=== PATIENT | female | born 1960 | race Caucasian/White ===

== ENCOUNTER 2023-06-01 20:33 | Observation (INO) ==
[2023-06-01] MEDS ORDERED: LORazepam 2 MG/1 ML VIAL ONE (21:05)
[2023-06-01] MEDS ORDERED: LORazepam 2 MG/1 ML VIAL IV STA ×2 (21:10→22:57)
[2023-06-01] MEDS ORDERED: ACETAMINOPHEN 1,000 MG/100 ML VIAL IV STA (21:10)
--- NOTE | 2023-06-01 21:16 | Emergency Department Note ---
Impression & Plan Traumatic hematoma of forehead, Focal seizure, Brain lesion ED Provider Note NAME: LONDON EASON AGE: 63 SEX: F : 1960 ARRIVES VIA: Ambulance INFORMANT: Patient, ED PROVIDER(S): Santana Lopez MD CHIEF COMPLAINT: Fall, arm jerking MEDICAL DECISION MAKING: Patient presents due to concern for fall and associated arm jerking. IV was established blood work is obtained. The patient was ordered some Ativan as the patient may be having a focal seizure versus uncontrollable spasm of her right upper extremity. Patient does move the rest of her extremities without any issue. Patient does complain of some mild shortness of breath but is fairly anxious. The patient was ordered some IV Ativan as well as some IV Tylenol CT head cervical spine and face. Patient with a normal white count hemoglobin of 10 anemia. Kidney function is unremarkable with normal electrolytes. BSG 123. CT does show concern for edema left side of the hemisphere which may be consistent with the patient's uncontrollable jerking of the right upper extremity which may be a focal seizure. I did speak with [facility] neurology Dr. Simons who did review the CT imaging. He recommended Keppra and to hold Dex until an MRI was obtained with a nd without contrast. He does think that this is likely a metastatic lesion but could be a primary glioma. He recommends a CT of the chest abdomen pelvis to look for primary lesion. Patient was ordered 2 g of Keppra. Patient was also ordered Ativan. I did convey the findings to the patient the patient's family at bedside. I subsequently did speak with the on-call hospitalist Dr. Uriarte and the patient was admitted to the medicine service. CT chest abdomen pelvis does not show any primary brain lesion. Patient's MR brain does show brightly enhancing dural based lesion over the left frontal convexity measuring 14.9 x 13 x 10.8 mm with moderate amount of vasogenic edema. Patient was not a TNK candidate as the patient has had right upper extremity ongoing issues for the last 3 months and the patient did have a traumatic injury at the time of her presentation. Critical Care: I have personally spent 35 minutes of critical care time in direct management of this patient. This includes bedside care, interpretation of diagnostic studies, and testing, discussion with consultants, patient, and family members, and other require inpatient management activities. This 35 minutes is in excess of all separately billable procedures. Discussion w/ other healthcare providers: Dr. Lipscomb with [facility] neurology Dr. Uriarte with the inpatient medicine service Prior /Outside records reviewed: I reviewed the patient's medication list patient takes mirtazapine CBD Gummies metoprolol loratadine albuterol atorvastatin and Spiriva Differential diagnosis: Fracture, dislocation, contusion, strain, sprain, ICH, hemothorax, intra- abdominal injury, anemia among other causes were considered. Diagnostics, as interpreted by me: ECG: Sinus tachycardia, rate of 136, normal intervals, normal axis. Possible ST depressions in the lateral leads. Cardiac monitoring: An order was placed for continuous cardiac monitoring. The monitor shows a rate of 145 with tachycardic and regular rhythm. Patient was placed on pulse oximetry Medical decision rules: None Imaging studies: I informally interpreted the patient's CT of the head which does show likely vasogenic edema within the left hemisphere with formal report to follow. HPI: Patient presents due to concern for fall that occurred just prior to arrival. The patient reportedly was complaining of some shortness of breath afterwards but does feel anxious. The patient does have tremors of the right upper extremity that seems more pronounced today. Patient states that she stood up to get a drink and had a fall striking the nightstand. The patient was noted to have a hematoma to the right eyebrow. Patient does have a history of smoking but is a former smoker. Patient does follow with pulmonology. BSG prior to arrival was 137. Ice pack was applied. Patient describes a right upper extremity jerking as a seizure and that she is had some of these issues for the last 3 months or so. Patient was to have a follow-up with Dr. Dalton here locally but did have an appointment canceled and did have a follow-up next month. PAST MEDICAL HISTORY: COPD, hypertension PAST SURGICAL HISTORY: No pertinent past surgical history SOCIAL HISTORY: Former smoker. Lives alone. Denies alcohol use. HOME MEDICATIONS: See Below ALLERGIES: See Below VITALS: See Below PHYSICAL EXAMINATION: GENERAL: NAD, non-toxic. Appears older than stated age. EYE EXAM: Normal conjunctiva. PERRL, no anisocoria and EOM's grossly intact w/o pain. Head: Hematoma noted to the right supraorbital area even able to open the eye with no obvious subconjunctival hemorrhage or hyphema. No proptosis noted. OROPHARYNX: Moist mucus membranes, grossly normal dentition. NECK: Supple, no nuchal rigidity, no adenopathy, non-tender. No signs of meningismus. FROM of the neck with good chin to chest and neck extension. No stridor. LUNGS: Clear to auscultation. Normal chest wall mechanics. HEART: Tachycardic and regular, no MRG. ABDOMEN: Abdomen soft, non-tender, no masses, no rebound or guarding. BACK: No CVA TTP. SKIN: No rashes and no bruising. UPPER EXTREMITIES: Right upper extremity jerking motion noted. Decreased ability to move the right upper extremity compared to the left. LOWER EXTREMITIES: Grossly normal, no edema. NEURO EXAM: A&O x3, cranial nerves II-XII grossly intact, normal speech, jerking movement of the right upper extremity with inability to raise the arm. Past Med/Surg History Medical History Alcohol use disorder Allergic rhinitis Anxiety COPD (chronic obstructive pulmonary disease) Depression Frontal headache GERD (gastroesophageal reflux disease) Hyperlipidemia Hypertension Muscle spasm Osteoarthritis Tobacco use disorder Vitamin D deficiency Surgical History S/P hysterectomy Family History Mother , age 69 of liver cancer Liver cancer Father , 04/12/2072 of heart disease Heart disease Social History Smoking Status: Current every day smoker Tobacco Type: Cigarettes Age Started Using Tobacco: 16; packs per day: 0.25; Cigarettes Per Day: 1/2 pack to 1 pack for the past 40-50 years; Smoking End Date: pt stated she still has a few every once in a while; Second Hand Exposure: No; Do You Dip or Chew Tobacco: No; Tobacco Cessation Education Requested by Patient: No Hx Alcohol Use: Yes Alcohol type: beer and hard liquor Alcohol Intake Frequency: 2-4 x/Month Hx Substance Use: No Preferred Language: Danish Communication Ability: Effective Retail Merchandiser Required: No Beliefs That Will Affect Care: None Current Living Situation: Alone current occupational status: retired 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 Other Information That Helps Us Care for You: No Feels Safe at Home: Yes Safety Concerns: Feels Safe At This Time Allergies Allergies Allergy/AdvReac Type Severity Reaction Status Date / Time No Known Allergies Allergy Unverified 06/02/23 00:53 Home Meds Home Medications Medication Instructions Recorded Confirmed albuterol sulfate 2.5 mg/3 mL 2.5 mg continuous nebulization 06/02/23 06/02/23 (0.083 %) solution for nebulization .EVERY 4-6 PRN Shortness Of Breath Or Wheezing albuterol sulfate 90 mcg/actuation 2 inh inhalation Q6 PRN Shortness 06/02/23 06/02/23 breath activated powder inhaler Of Breath Or Wheezing (ProAir RespiClick) atorvastatin 80 mg tablet 80 mg PO DAILY 06/02/23 06/02/23 celecoxib 200 mg capsule 200 mg PO BID PRN Pain 06/02/23 06/02/23 cholecalciferol (vitamin D3) 50 50 mcg PO DAILY 06/02/23 06/02/23 mcg (2,000 unit) tablet (Vitamin D3) hydroxyzine HCl 25 mg tablet 25 mg PO TID PRN Anxiety 06/02/23 06/02/23 lisinopril 5 mg tablet 5 mg PO DAILY 06/02/23 06/02/23 loratadine 10 mg tablet 10 mg PO DAILY 06/02/23 06/02/23 methocarbamol 750 mg tablet 750 mg PO BID PRN Muscle Spasm 06/02/23 06/02/23 metoprolol succinate 25 mg 12.5 mg PO DAILY 06/02/23 06/02/23 tablet,extended release 24 hr mirtazapine 30 mg tablet 30 mg PO HS 06/02/23 06/02/23 omeprazole 40 mg capsule,delayed 40 mg PO DAILY 06/02/23 06/02/23 release tiotropium bromide 2.5 2 puff inhalation DAILY 06/02/23 06/02/23 mcg/actuation mist for inhalation (Spiriva Respimat) Results & Data (ED) Vital Signs Vital Signs - 24 hr 06/01/23 20:41 06/01/23 21:10 06/01/23 21:21 Temperature 36.8 C Temperature Source Oral Pulse Rate 111 H 146 H 133 H Pulse Rate [Apical] Pulse Rate from SpO2 Sensor Pulse Rhythm Regular Respiratory Rate 22 18 Respiratory Effort / Characteristics Non-Labored Spontaneous Respiratory Depth Normal Blood Pressure 119/86 Blood Pressure [Left Arm] Blood Pressure Mean 97 Blood Pressure Mean [Left Arm] Pulse Oximetry 94 92 Oxygen Delivery Method Room Air Room Air Sepsis Recent Fever Within 48 Hours No Sepsis New/Unexplained Change in Mental Status No Sepsis Action Taken by Nursing No Action Required 06/01/23 21:40 06/01/23 21:26 06/01/23 21:26 Temperature Temperature Source Pulse Rate 128 H Pulse Rate [Apical] 120 H Pulse Rate from SpO2 Sensor 128 H Pulse Rhythm Respiratory Rate 20 25 H Respiratory Effort / Characteristics Non-Labored Spontaneous Respiratory Depth Normal Blood Pressure 130/72 Blood Pressure [Left Arm] 97/79 L Blood Pressure Mean 84 Blood Pressure Mean [Left Arm] 85 Pulse Oximetry 94 92 Oxygen Delivery Method Room Air Sepsis Recent Fever Within 48 Hours Sepsis New/Unexplained Change in Mental Status Sepsis Action Taken by Nursing 06/01/23 21:30 06/01/23 21:31 06/01/23 21:31 Temperature Temperature Source Pulse Rate 125 H 124 H Pulse Rate [Apical] Pulse Rate from SpO2 Sensor 125 H 125 H Pulse Rhythm Respiratory Rate 26 H 18 Respiratory Effort / Characteristics Respiratory Depth Blood Pressure 130/72 81/40 L Blood Pressure [Left Arm] Blood Pressure Mean 91 58 Blood Pressure Mean [Left Arm] Pulse Oximetry 92 92 Oxygen Delivery Method Sepsis Recent Fever Within 48 Hours Sepsis New/Unexplained Change in Mental Status Sepsis Action Taken by Nursing 06/01/23 22:00 06/01/23 22:30 06/01/23 23:00 Temperature Temperature Source Pulse Rate 111 H 102 H Pulse Rate [Apical] Pulse Rate from SpO2 Sensor 113 H 102 H Pulse Rhythm Respiratory Rate 25 H 20 Respiratory Effort / Characteristics Non-Labored Spontaneous Respiratory Depth Blood Pressure 117/68 121/82 Blood Pressure [Left Arm] Blood Pressure Mean 84 95 Blood Pressure Mean [Left Arm] Pulse Oximetry 94 94 Oxygen Delivery Method Sepsis Recent Fever Within 48 Hours Sepsis New/Unexplained Change in Mental Status Sepsis Action Taken by Nursing 06/01/23 23:00 Temperature Temperature Source Pulse Rate 105 H Pulse Rate [Apical] Pulse Rate from SpO2 Sensor 107 H Pulse Rhythm Respiratory Rate 24 Respiratory Effort / Characteristics Respiratory Depth Blood Pressure 123/76 Blood Pressure [Left Arm] Blood Pressure Mean 91 Blood Pressure Mean [Left Arm] Pulse Oximetry 95 Oxygen Delivery Method Sepsis Recent Fever Within 48 Hours Sepsis New/Unexplained Change in Mental Status Sepsis Action Taken by Detention Medications Current Medication List: was personally reviewed by me Laboratory Data Attestation: I reviewed the patient's lab results. 06/01/23 20:45 06/01/23 20:45 Lab Results 06/01/23 06/01/23 06/01/23 Range/Units 20:45 20:45 20:45 WBC 10.52 (4.8-10.8) K/ul RBC 4.18 L (4.20-5.40) M/uL Hgb 10.6 L (12.0-16.0) g/dl Hct 33.2 L (37.0-47.0) % MCV 79.4 L (80.0-100.0) fL MCH 25.4 (25.0-34.0) pg MCHC 31.9 L (32.0-36.0) g/dL RDW Std Deviation 51.8 H (36.4-46.3) fL RDW Coeff of Micheal 17.9 H (11.5-14.5) % Plt Count 392 (130-400) K/uL MPV 9.4 (9.4-12.4) fL Immature Gran % (Auto) 0.3 % Neut % (Auto) 52.1 % Lymph % (Auto) 37.2 % Graves % (Auto) 7.5 % Eos % (Auto) 2.2 % Baso % (Auto) 0.7 % Neut # (Auto) 5.49 (1.40-6.50) K/uL Lymph # (Auto) 3.91 H (1.20-3.40) K/uL Graves # (Auto) 0.79 H (0.11-0.59) K/uL Eos # (Auto) 0.23 (0.00-0.50) K/uL Baso # (Auto) 0.07 (0.00-0.20) K/uL Immature Gran # (Auto) 0.03 (0.01-0.20) K/uL PT 10.9 (9.0-12.0) Seconds INR 1.0 (0.9-1.1) Sodium 139 (136-145) mmol/L Potassium 4.0 (3.5-5.1) mmol/L Chloride 104 (98-107) mmol/L Carbon Dioxide 24 (21-32) mmol/L Anion Gap 11 (3-11) BUN 9 (6-23) mg/dl Creatinine 0.87 (0.6-1.2) mg/dl Est Cr Clr Drug Dosing 66.5 ml/min Est GFR ( Amer) 82.2 ml/min Est GFR (Non-Af Amer) 70.9 ml/min BUN/Creatinine Ratio 10.3 (10-20) Glucose 123 H (70-99(Fasting)) mg/dl Calcium 9.7 (8.6-10.3) mg/dl Total Bilirubin 0.2 (0.2-1.0) mg/dl AST 23 (13-39) U/L ALT 13 (7-52) U/L Alkaline Phosphatase 56 (34-104) U/L Troponin I High Sens 5.7 (0-14) pg/ml Total Protein 7.2 (6.0-8.3) gm/dl Albumin 4.3 (3.4-5.0) gm/dl Globulin 2.9 (2.5-4.0) gm/dl Albumin/Globulin Ratio 1.5 (0.9-2) Administered Medications Albuterol (Albut/Ipratrop 3mg/0.5mg Neb 3 Ml Vial) 3 ml NEB QIDR [facility]; Protocol Stop: 07/02/23 06:59 Last Admin: 06/02/23 14:55 Dose: 3 ml Documented By: Admin: 06/02/23 10:40 Dose: 3 ml Documented By: Admin: 06/02/23 07:35 Dose: 3 ml Documented By: ANGELI Thiamine HCl 100 mg/ Syringe 10 mls @ 2 mls/min IV QAM [facility] Stop: 07/02/23 08:59 Last Admin: 06/02/23 08:05 Dose: 2 mls/min Documented By: ALIZA Folic Acid 1 mg/ Syringe 10 mls @ 5 [facility]ls[facility] [place]: 07/02/23 08:59 Last Admin: 06/02/23 08:05 Dose: 5 mls/min Documented By: ALIZA Pantoprazole Sodium 40 mg/ (Syringe) 10 mls @ 5 mls/min IV DAILY@1100 [facility] Stop: 07/02/23 10:59 Last Admin: 06/02/23 10:36 Dose: 5 mls/min Documented By: ALIZA Levetiracetam 500 mg/ Sodium (Chloride) 105 mls @ 420 mls/hr IV Q12H [facility] Stop: 07/02/23 07:59 Last Infusion: 06/02/23 10:05 Dose: 0 mls/hr Documented By: Admin: 06/02/23 08:04 Dose: 420 mls/hr Documented By: ALIZA Dexamethasone 4 mg/ Syringe 1 mls @ 1 mls/min IV Q8H [facility] Stop: 07/02/23 12:59 Last Admin: 06/02/23 13:36 Dose: 1 mls/min Documented By: ALIZA Magnesium Sulfate/Dextrose (Magnesium Sulfate / D5w) 1 gm in 100 mls @ 50 mls/hr IV Q2H [facility]ON Stop: 06/02/23 16:14 Last Admin: 06/02/23 14:37 Dose: 50 mls/hr Documented By: Infusion: 06/02/23 14:34 Dose: 50 mls/hr Documented By: Admin: 06/02/23 12:34 Dose: 50 mls/hr Documented By: Infusion: 06/02/23 12:34 Dose: 50 mls/hr Documented By: Admin: 06/02/23 10:36 Dose: 50 mls/hr Documented By: ALIZA Discontinued Medications Gadobutrol (Gadobutrol 30ml Vial) 7.5 ml IV ONCE ONE Stop: 06/02/23 03:07 Last Admin: 06/02/23 02:40 Dose: 7.5 ml Documented By: SANTOS Acetaminophen (Ofirmev) 1,000 mg in 100 mls @ 400 mls/hr IV NOW STA Stop: 06/01/23 21:24 Last Infusion: 06/01/23 22:14 Dose: 0 mls/hr Documented By: Admin: 06/01/23 21:49 Dose: 400 mls/hr Documented By: JARRETT Sodium Chloride (Nss) 1,000 mls @ 999 mls/hr IV .Q1H1M ONE Stop: 06/01/23 22:51 Last Infusion: 06/01/23 23:27 Dose: 0 mls/hr Documented By: Admin: 06/01/23 21:56 Dose: 999 mls/hr Documented By: JARRETT Levetiracetam 1,000 mg/ Sodium (Chloride) 110 mls @ 440 mls/hr IV NOW STA Stop: 06/01/23 22:55 Last Admin: 06/01/23 23:36 Dose: Not Given Documented By: JONO Levetiracetam 2,000 mg/ Sodium (Chloride) 270 mls @ 999 mls/hr IV NOW STA Stop: 06/01/23 23:12 Last Infusion: 06/02/23 00:51 Dose: 0 mls/hr Documented By: Admin: 06/01/23 23:38 Dose: 999 mls/hr Documented By: JONO Potassium Chloride/Sodium Chloride (Normal Saline W/20 Meq Kcl) 20 meq in 1,000 mls @ 100 mls/hr IV .Q10H GIBSON; Protocol Stop: 06/02/23 10:14 Last Infusion: 06/02/23 11:35 Dose: 0 mls/hr Documented By: Admin: 06/02/23 04:13 Dose: 100 mls/hr Documented By: FAYE Dexamethasone 10 mg/ Syringe 2.5 mls @ 1 mls/min IV ONE ONE Stop: 06/02/23 07:32 Last Admin: 06/02/23 08:25 Dose: 1 mls/min Documented By: ALIZA Ioversol (Optiray 320 100ml) 93 ml IV ONCE ONE Stop: 06/01/23 23:24 Last Admin: 06/01/23 23:24 Dose: 93 ml Documented By: KULDIP Lorazepam (Lorazepam 2 Mg/1 Ml Vial) Confirm Administered Dose 2 mg .ROUTE .STK- MED ONE Stop: 06/01/23 21:06 Last Admin: 06/01/23 21:06 Dose: 1 mg Documented By: JARRETT Lorazepam (Lorazepam 2 Mg/1 Ml Vial) 1 mg IV NOW STA Stop: 06/01/23 21:11 Last Admin: 06/01/23 21:23 Dose: Not Given Documented By: JARRETT Lorazepam (Lorazepam 2 Mg/1 Ml Vial) 1 mg IV NOW STA Stop: 06/01/23 22:58 Last Admin: 06/01/23 23:38 Dose: 1 mg Documented By: JONO Lorazepam (Lorazepam 2 Mg/1 Ml Vial) 0.5 mg IV NOW STA Stop: 06/02/23 01:29 Last Admin: 06/02/23 03:30 Dose: Not Given Documented By: FAYE Metoprolol Tartrate (Metoprolol Tartrate 1 Mg/Ml Vial) 5 mg IV NOW STA Stop: 06/02/23 13:39 Last Admin: 06/02/23 13:57 Dose: 5 mg Documented By: ALIZA Miscellaneous Information (Patient's Allergy Info Needs Entered) 1 each N/A NOW STA Stop: 06/02/23 00:46 Last Admin: 06/02/23 01:21 Dose: Not Given Documented By: JONO Thiamine HCl (Thiamine Hcl 100 Mg/Ml 2 Ml Vial) 100 mg IM NOW STA Stop: 06/02/23 02:26 Last Admin: 06/02/23 04:14 Dose: 100 mg Documented By: FAYE Imaging Data Radiologist's Impression: Cervical Spine CT 06/01/23 21:10 Exam(s): CT C SPINE EXAM: CT Cervical Spine Without Intravenous Contrast CLINICAL HISTORY: Reason for exam: Trauma. TECHNIQUE: Axial computed tomography images of the cervical spine without intravenous contrast. CTDI is 38.31 mGy and DLP is 1188.72 mGy-cm. Automated exposure control was utilized for the study. A dose lowering technique was utilized adhering to the principles of ALARA. COMPARISON: No relevant prior studies available. FINDINGS: Vertebrae: Advanced multilevel degenerative arthropathy on the left. No acute fracture. No misalignment. Discs/spinal canal/neural foramina: Degenerative disc disease in the lower cervical spine. No spinal canal stenosis. Soft tissues: Unremarkable. IMPRESSION: No acute findings in the cervical spine. Electronically signed by: Power Parekh MD 06/01/23 22:[address] 06/01/23 21:10 Exam(s): CT FACIAL Without Contrast EXAM: CT Maxillofacial Without Intravenous Contrast CLINICAL HISTORY: Reason for exam: Trauma. TECHNIQUE: Axial computed tomography images of the face without intravenous contrast. CTDI is 38.31 mGy and DLP is 1188.72 mGy-cm. Automated exposure control was utilized for the study. A dose lowering technique was utilized adhering to the principles of ALARA. COMPARISON: No relevant prior studies available. FINDINGS: Bones/joints: No acute fracture. Soft tissues: Unremarkable. Orbits: Extensive right periorbital and supraorbital hematoma. Sinuses: Unremarkable. No air-fluid levels. Dental: Multiple dental caries. Periodontal erosion involving the second right maxillary bicuspid. IMPRESSION: No acute fracture. Electronically signed by: Power Parekh MD 06/01/23 22:[address] 06/01/23 21:10 Exam(s): CT HEAD Without Contrast EXAM: CT Head Without Intravenous Contrast CLINICAL HISTORY: Reason for exam: Trauma. TECHNIQUE: Axial computed tomography images of the head/brain without intravenous contrast. CTDI is 38.31 mGy and DLP is 1188.72 mGy-cm. Automated exposure control was utilized for the study. A dose lowering technique was utilized adhering to the principles of ALARA. COMPARISON: No relevant prior studies available. FINDINGS: Brain: Abnormal vasogenic edema within the posterior left frontal lobe. . No cortical edema. No hemorrhage. No abnormal mass-effect. Ventricles: Unremarkable. No ventriculomegaly. Bones/joints: Unremarkable. No acute fracture. Soft tissues: Right periorbital and supraorbital hematoma and soft tissue swelling. Sinuses: Unremarkable as visualized. No acute sinusitis. Mastoid air cells: Unremarkable as visualized. No mastoid effusion. IMPRESSION: 1. Right periorbital and supraorbital hematoma and soft tissue swelling. 2. Abnormal vasogenic edema within the posterior left frontal lobe. Recommend a CT scan with contrast or an MRI with and without contrast to look for underlying lesion. Electronically signed by: Power Parekh MD 06/01/23 22:[address] 06/01/23 21:10 Exam(s): CT C SPINE EXAM: CT Cervical Spine Without Intravenous Contrast CLINICAL HISTORY: Reason for exam: Trauma. TECHNIQUE: Axial computed tomography images of the cervical spine without intravenous contrast. CTDI is 38.31 mGy and DLP is 1188.72 mGy-cm. Automated exposure control was utilized for the study. A dose lowering technique was utilized adhering to the principles of ALARA. COMPARISON: No relevant prior studies available. FINDINGS: Vertebrae: Advanced multilevel degenerative arthropathy on the left. No acute fracture. No misalignment. Discs/spinal canal/neural foramina: Degenerative disc disease in the lower cervical spine. No spinal canal stenosis. Soft tissues: Unremarkable. IMPRESSION: No acute findings in the cervical spine. Electronically signed by: Power Parekh MD 06/01/23 22:[address] 06/01/23 21:10 Exam(s): CT FACIAL Without Contrast EXAM: CT Maxillofacial Without Intravenous Contrast CLINICAL HISTORY: Reason for exam: Trauma. TECHNIQUE: Axial computed tomography images of the face without intravenous contrast. CTDI is 38.31 mGy and DLP is 1188.72 mGy-cm. Automated exposure control was utilized for the study. A dose lowering technique was utilized adhering to the principles of ALARA. COMPARISON: No relevant prior studies available. FINDINGS: Bones/joints: No acute fracture. Soft tissues: Unremarkable. Orbits: Extensive right periorbital and supraorbital hematoma. Sinuses: Unremarkable. No air-fluid levels. Dental: Multiple dental caries. Periodontal erosion involving the second right maxillary bicuspid. IMPRESSION: No acute fracture. Electronically signed by: Power Parekh MD 06/01/23 22:[address] 06/01/23 21:10 Exam(s): CT HEAD Without Contrast EXAM: CT Head Without Intravenous Contrast CLINICAL HISTORY: Reason for exam: Trauma. TECHNIQUE: Axial computed tomography images of the head/brain without intravenous contrast. CTDI is 38.31 mGy and DLP is 1188.72 mGy-cm. Automated exposure control was utilized for the study. A dose lowering technique was utilized adhering to the principles of ALARA. COMPARISON: No relevant prior studies available. FINDINGS: Brain: Abnormal vasogenic edema within the posterior left frontal lobe. . No cortical edema. No hemorrhage. No abnormal mass-effect. Ventricles: Unremarkable. No ventriculomegaly. Bones/joints: Unremarkable. No acute fracture. Soft tissues: Right periorbital and supraorbital hematoma and soft tissue swelling. Sinuses: Unremarkable as visualized. No acute sinusitis. Mastoid air cells: Unremarkable as visualized. No mastoid effusion. IMPRESSION: 1. Right periorbital and supraorbital hematoma and soft tissue swelling. 2. Abnormal vasogenic edema within the posterior left frontal lobe. Recommend a CT scan with contrast or an MRI with and without contrast to look for underlying lesion. Electronically signed by: Power Parekh MD 06/01/23 22:21 PM Abdomen/Pelvis CT 06/01/23 22:41 Exam(s): CT ABDOMEN + PELVIS With Contrast IV Amt: 93 ML EXAM: CT Abdomen and Pelvis With Intravenous Contrast CLINICAL HISTORY: Reason for exam: r/o primary onc lesion. TECHNIQUE: Axial computed tomography images of the abdomen and pelvis with intravenous contrast. CTDI is 36.5 mGy and DLP is 1550.66 mGy-cm. Automated exposure control was utilized for the study. A dose lowering technique was utilized adhering to the principles of ALARA. CONTRAST: Patient received 93 ML of IV contrast COMPARISON: No relevant prior studies available. FINDINGS: Lung bases: Unremarkable. No mass. No consolidation. ABDOMEN: Liver: No intrahepatic bile duct dilatation. No mass. Gallbladder and bile ducts: The common bile duct is dilated at 9 mm. No high density stone is seen. Pancreas: Unremarkable. No mass. No pancreatic ductal dilatation. Spleen: Unremarkable. No splenomegaly. Adrenals: Unremarkable. No mass. Kidneys and ureters: Unremarkable. No solid mass. No hydronephrosis. Stomach and bowel: Unremarkable. No obstruction. No mucosal thickening. PELVIS: Appendix: No findings to suggest acute appendicitis. Bladder: Unremarkable. No mass. Reproductive: Hysterectomy. ABDOMEN and PELVIS: Intraperitoneal space: Unremarkable. No free air. No significant fluid collection. Bones/joints: No acute fracture. No dislocation. Soft tissues: Supraumbilical small ventral hernia containing omental fat. Vasculature: Unremarkable. No abdominal aortic aneurysm. Lymph nodes: Unremarkable. No enlarged lymph nodes. IMPRESSION: Mild dilatation of the common bile duct. No intrahepatic bile duct dilatation. No associated pancreatic duct dilatation. No evidence of mass. Electronically signed by: Power Parekh MD 06/02/23 00:[address] 06/01/23 22:41 Exam(s): CT CHEST With Contrast IV Amt: 93 ML EXAM: CT Chest With Intravenous Contrast CLINICAL HISTORY: Reason for exam: r/o primary onc lesion. TECHNIQUE: Axial computed tomography images of the chest with intravenous contrast. CTDI is 36.5 mGy and DLP is 1550.66 mGy-cm. Automated exposure control was utilized for the study. A dose lowering technique was utilized adhering to the principles of ALARA. CONTRAST: Patient received 93 ML of IV contrast COMPARISON: No relevant prior studies available. FINDINGS: Lungs: Unremarkable. No mass. No consolidation. Pleural space: Unremarkable. No pneumothorax. No significant effusion. Heart: Unremarkable. No cardiomegaly. No significant pericardial effusion. No significant coronary artery calcifications. Bones/joints: Unremarkable. No acute fracture. No dislocation. Soft tissues: Unremarkable. Vasculature: Unremarkable. No thoracic aortic aneurysm. Lymph nodes: Unremarkable. No enlarged lymph nodes. IMPRESSION: Negative chest CT. Electronically signed by: Power Parekh MD 06/01/23 23:57 PM Discharge Plan Visit Data Chief Complaint: Fall ED Provider: Santana Lopez Discharge Problem: Traumatic hematoma of forehead, Focal seizure, Brain lesion Patient Disposition: Admitted As Inpatient Discharge Instructions Interventions: ED Discharge Assessment Last Done: 06/02/23 02:27
[2023-06-01 21:32] LABS: Prothrombin Time 10.9 Seconds (9.0-12.0)
[2023-06-01 21:50] LABS: Albumin Globulin Ratio 1.5 (0.9-2); Albumin Level 4.3 gm/dl (3.4-5.0); BUN Creatinine Ratio 10.3 (10-20); Bilirubin,Total 0.2 mg/dl (0.2-1.0); Calcium 9.7 mg/dl (8.6-10.3); Creatinine Clr Calc Pharmacy 66.5 ml/min; Est GFR (African American) 82.2 ml/min; Est GFR (Non-African American) 70.9 ml/min; Globulin 2.9 gm/dl (2.5-4.0); Total Protein 7.2 gm/dl (6.0-8.3)
[2023-06-01 21:51] LABS: Basophils # (auto) 0.07 K/uL (0.00-0.20); Basophils % (auto) 0.7 %; Eosinophils # (auto) 0.23 K/uL (0.00-0.50); Eosinophils % (auto) 2.2 %; Hematocrit (blood only) 33.2 % (37.0-47.0); Hemoglobin 10.6 g/dl (12.0-16.0); Immature Granulocytes # (auto) 0.03 K/uL (0.01-0.20); Immature Granulocytes % (auto) 0.3 %; Lymphocytes # (auto) 3.91 K/uL (1.20-3.40); Lymphocytes % (auto) 37.2 %; Mean Corpuscular Hemoglobin 25.4 pg (25.0-34.0); Mean Corpuscular Hgb Conc 31.9 g/dL (32.0-36.0); Mean Corpuscular Volume 79.4 fL (80.0-100.0); Mean Platelet Volume 9.4 fL (9.4-12.4); Monocytes # (auto) 0.79 K/uL (0.11-0.59); Monocytes % (auto) 7.5 %; Neutrophils # (auto) 5.49 K/uL (1.40-6.50); Neutrophils % (auto) 52.1 %; Platelet Count 392 K/uL (130-400); RDW Coefficient of Variation 17.9 % (11.5-14.5); RDW Standard Deviation 51.8 fL (36.4-46.3); Red Blood Count 4.18 M/uL (4.20-5.40); White Blood Count 10.52 K/ul (4.8-10.8)
[2023-06-01] MEDS ORDERED: SODIUM CHLORIDE 0.9% 1,000 ML IV ONE (21:51)
[2023-06-01 21:57] LABS: Troponin I High Sensitivity 5.7 pg/ml (0-14)
--- NOTE | 2023-06-01 22:21 | CT Scan Report ---
Exam(s): CT HEAD Without Contrast EXAM: CT Head Without Intravenous Contrast CLINICAL HISTORY: Reason for exam: Trauma. TECHNIQUE: Axial computed tomography images of the head/brain without intravenous contrast. CTDI is 38.31 mGy and DLP is 1188.72 mGy-cm. Automated exposure control was utilized for the study. A dose lowering technique was utilized adhering to the principles of ALARA. COMPARISON: No relevant prior studies available. FINDINGS: Brain: Abnormal vasogenic edema within the posterior left frontal lobe. . No cortical edema. No hemorrhage. No abnormal mass-effect. Ventricles: Unremarkable. No ventriculomegaly. Bones/joints: Unremarkable. No acute fracture. Soft tissues: Right periorbital and supraorbital hematoma and soft tissue swelling. Sinuses: Unremarkable as visualized. No acute sinusitis. Mastoid air cells: Unremarkable as visualized. No mastoid effusion. IMPRESSION: 1. Right periorbital and supraorbital hematoma and soft tissue swelling. 2. Abnormal vasogenic edema within the posterior left frontal lobe. Recommend a CT scan with contrast or an MRI with and without contrast to look for underlying lesion. Electronically signed by: Power Parekh MD 06/01/23 22:21 PM
--- NOTE | 2023-06-01 22:29 | CT Scan Report ---
Exam(s): CT C SPINE EXAM: CT Cervical Spine Without Intravenous Contrast CLINICAL HISTORY: Reason for exam: Trauma. TECHNIQUE: Axial computed tomography images of the cervical spine without intravenous contrast. CTDI is 38.31 mGy and DLP is 1188.72 mGy-cm. Automated exposure control was utilized for the study. A dose lowering technique was utilized adhering to the principles of ALARA. COMPARISON: No relevant prior studies available. FINDINGS: Vertebrae: Advanced multilevel degenerative arthropathy on the left. No acute fracture. No misalignment. Discs/spinal canal/neural foramina: Degenerative disc disease in the lower cervical spine. No spinal canal stenosis. Soft tissues: Unremarkable. IMPRESSION: No acute findings in the cervical spine. Electronically signed by: Power Parekh MD 06/01/23 22:29 PM
--- NOTE | 2023-06-01 22:33 | CT Scan Report ---
Exam(s): CT FACIAL Without Contrast EXAM: CT Maxillofacial Without Intravenous Contrast CLINICAL HISTORY: Reason for exam: Trauma. TECHNIQUE: Axial computed tomography images of the face without intravenous contrast. CTDI is 38.31 mGy and DLP is 1188.72 mGy-cm. Automated exposure control was utilized for the study. A dose lowering technique was utilized adhering to the principles of ALARA. COMPARISON: No relevant prior studies available. FINDINGS: Bones/joints: No acute fracture. Soft tissues: Unremarkable. Orbits: Extensive right periorbital and supraorbital hematoma. Sinuses: Unremarkable. No air-fluid levels. Dental: Multiple dental caries. Periodontal erosion involving the second right maxillary bicuspid. IMPRESSION: No acute fracture. Electronically signed by: Power Parekh MD 06/01/23 22:33 PM
[2023-06-01] MEDS ORDERED: levETIRAcetam 1,000 MG in 0.9 % SODIUM CHLORIDE 100 ML IV STA (22:41)
[2023-06-01] MEDS ORDERED: OPTIRAY 320 100ml IV ONE (23:23)
--- NOTE | 2023-06-01 23:58 | CT Scan Report ---
Exam(s): CT CHEST With Contrast IV Amt: 93 ML EXAM: CT Chest With Intravenous Contrast CLINICAL HISTORY: Reason for exam: r/o primary onc lesion. TECHNIQUE: Axial computed tomography images of the chest with intravenous contrast. CTDI is 36.5 mGy and DLP is 1550.66 mGy-cm. Automated exposure control was utilized for the study. A dose lowering technique was utilized adhering to the principles of ALARA. CONTRAST: Patient received 93 ML of IV contrast COMPARISON: No relevant prior studies available. FINDINGS: Lungs: Unremarkable. No mass. No consolidation. Pleural space: Unremarkable. No pneumothorax. No significant effusion. Heart: Unremarkable. No cardiomegaly. No significant pericardial effusion. No significant coronary artery calcifications. Bones/joints: Unremarkable. No acute fracture. No dislocation. Soft tissues: Unremarkable. Vasculature: Unremarkable. No thoracic aortic aneurysm. Lymph nodes: Unremarkable. No enlarged lymph nodes. IMPRESSION: Negative chest CT. Electronically signed by: Power Parekh MD 06/01/23 23:57 PM
--- NOTE | 2023-06-02 00:03 | CT Scan Report ---
Exam(s): CT ABDOMEN + PELVIS With Contrast IV Amt: 93 ML EXAM: CT Abdomen and Pelvis With Intravenous Contrast CLINICAL HISTORY: Reason for exam: r/o primary onc lesion. TECHNIQUE: Axial computed tomography images of the abdomen and pelvis with intravenous contrast. CTDI is 36.5 mGy and DLP is 1550.66 mGy-cm. Automated exposure control was utilized for the study. A dose lowering technique was utilized adhering to the principles of ALARA. CONTRAST: Patient received 93 ML of IV contrast COMPARISON: No relevant prior studies available. FINDINGS: Lung bases: Unremarkable. No mass. No consolidation. ABDOMEN: Liver: No intrahepatic bile duct dilatation. No mass. Gallbladder and bile ducts: The common bile duct is dilated at 9 mm. No high density stone is seen. Pancreas: Unremarkable. No mass. No pancreatic ductal dilatation. Spleen: Unremarkable. No splenomegaly. Adrenals: Unremarkable. No mass. Kidneys and ureters: Unremarkable. No solid mass. No hydronephrosis. Stomach and bowel: Unremarkable. No obstruction. No mucosal thickening. PELVIS: Appendix: No findings to suggest acute appendicitis. Bladder: Unremarkable. No mass. Reproductive: Hysterectomy. ABDOMEN and PELVIS: Intraperitoneal space: Unremarkable. No free air. No significant fluid collection. Bones/joints: No acute fracture. No dislocation. Soft tissues: Supraumbilical small ventral hernia containing omental fat. Vasculature: Unremarkable. No abdominal aortic aneurysm. Lymph nodes: Unremarkable. No enlarged lymph nodes. IMPRESSION: Mild dilatation of the common bile duct. No intrahepatic bile duct dilatation. No associated pancreatic duct dilatation. No evidence of mass. Electronically signed by: Power Parekh MD 06/02/23 00:02 AM
[2023-06-02] MEDS ORDERED: ONDANSETRON INJ 2 MG/ML 2 ML VIAL IV PRN (00:11)
[2023-06-02] MEDS ORDERED: NSS + 20MEQ KCL 20 MEQ/1,000 ML BAG IV SCH (00:15)
--- NOTE | 2023-06-02 00:22 | History & Physical Report ---
Date of Service June 02, 2023 Assessment & Plan (1) Traumatic hematoma of forehead: (2) Vasogenic brain edema: (3) Focal seizure: (4) Right arm weakness: (5) Hypertension: (6) Hyperlipidemia: (7) COPD (chronic obstructive pulmonary disease): (8) Osteoarthritis: (9) Vitamin D deficiency: (10) Muscle spasm: (11) GERD (gastroesophageal reflux disease): (12) Depression: (13) Anxiety: (14) Seizure-like activity: (15) Tobacco use disorder: (16) Alcohol use disorder: (17) Frontal headache: Plan Seizure-like activity/frontal headaches/right arm weakness/right periorbital hematoma/vasogenic left frontal lobe edema on CT- The patient will be admitted to telemetry for serial cardiac enzymes, serial EKG's, cardiac rhythm monitoring and a 2-D echocardiogram with Dopplers. Patient had been having, on retrospect, frontal headaches over the past month. At 730 this evening she fell when getting up out of bed, hitting her head, and developed a right periorbital and supraorbital hematoma. She reports that she did have right arm tingling and [id number] feeling while laying down before she got up out of bed. She had loss of bladder control after falling, and right arm was noted to be shaking, and then became stiff to the point that her friend could not bend her arm to be flexed when she was helping her get dressed. The patient has continued inability to move her right arm other than wiggle her fingers slightly during my exam. The patient does have a history of a fracture with pins and a plate in her right wrist area, and has had decreased ability to flex her wrist and have fine motor control for the past 10 years, but has never had an issue with not being able to move her right arm as this happened today. She reports that the symptoms of her right arm initially began with [id number], and then locked up. CT scan notes left frontal lobe vasogenic edema. ED discussion with neurosurgery at [facility] in [place] advised with holding on dexamethasone 10 mg IV until after the brain MRI is completed, and giving a loading dose of Keppra IV now. Neurosurgery consult reports that they would not do anything differently than we would, and advised the patient to be admitted to [facility]. The patient did have multiple CT scans of chest, abdomen and pelvis, without suggestion of a primary lesion that might serve as a focus for possible metastatic lesion to the brain. The patient will not be admitted with TIA protocol, as this is more likely in an event related to seizure activity and vasogenic edema left frontal lobe. Patient will be kept n.p.o. until she can demonstrate no episodes of confusion She will likely need a PT/OT consult MRI of brain is ordered and pending Will likely be started on dexamethasone 10 mg IV in ED, and then 4 mg IV every 8 hours, but will wait until MRI results per neurosurgery recommendation Keppra 3000 mg IV loading dose given as a neurosurgery recommendation, then will be maintained on 500 mg IV every 12 hours Alcohol use disorder- Patient has had daily alcohol intake, with combinations of beer and liquor, in an amount that she cannot quantitate. We will give thiamine 100 mg IV now and then every morning Folic acid 1 mg IV every morning AWSS protocol with IV Ativan Hypertension/presently with borderline hypotension- With systolic blood pressure 102, that did improve with IV fluid bolus Hold metoprolol, lisinopril NSS + KCl 20 mEq at 100 mils per hour x1 L Normal saline boluses as needed COPD/tobacco use disorder- Patient reportedly uses DuoNebs 4 times a day Duonebs every 4 hours while awake and every 2 hours when necessary. Hold Spiriva Tobacco cessation counseling, reports that she is smoking significantly less over the past 1-1/2 weeks Anxiety with depression- Hold mirtazapine, hydroxyzine, IV lorazepam will be available History of Present Illness Chief Complaint: The patient presents to the emergency department via EMS after experiencing a fall at home, with injury to her right forehead, loss of bladder control, and with difficulty with control of her right arm Primary Care Provider: LUCHO Johnson The patient is a 63-year-old female with a past medical history including hypertension, hyperlipidemia, COPD, GERD, vitamin D deficiency, muscle spasm, allergic rhinitis, tobacco use and alcohol use disorders and chronic pain syndrome. The patient and friend note that over the past month she has had on and off frontal area headaches, where she would say she needed to go lay down for a little bit. This evening at about 730 as she was getting out of bed, she collapsed, hitting her right forehead, and noted just prior to getting out of bed difficulty with control of her right arm where it was shaking and then became stiff. Her friend notes that when she was called for assistance that the patient's right arm was stiff and she was not able to get her to bend it to be able to get her close changed. She was also noted to have loss of bladder control at that time. She denies any recent travels or sick exposures, she has not had any previous occurrence of falls or loss of control of right arm. She did not have any issues controlling her left arm or bilateral legs. She is chronically short of breath associated with tobacco use, which she did manage to quit about 1 and half weeks ago. Alcohol use is daily hard liquor and beer, with last intake earlier in the day today. Allergies Allergy/AdvReac Type Severity Reaction Status Date / Time No Known Allergies Allergy Unverified 06/02/23 00:53 Home Medications Medication Instructions Recorded Confirmed Type albuterol sulfate 2.5 mg/3 mL 2.5 mg continuous nebulization 06/02/23 06/02/23 History (0.083 %) solution for nebulization .EVERY 4-6 PRN Shortness Of Breath Or Wheezing albuterol sulfate 90 mcg/actuation 2 inh inhalation Q6 PRN Shortness 06/02/23 06/02/23 History breath activated powder inhaler Of Breath Or Wheezing (ProAir RespiClick) atorvastatin 80 mg tablet 80 mg PO DAILY 06/02/23 06/02/23 History celecoxib 200 mg capsule 200 mg PO BID PRN Pain 06/02/23 06/02/23 History cholecalciferol (vitamin D3) 50 50 mcg PO DAILY 06/02/23 06/02/23 History mcg (2,000 unit) tablet (Vitamin D3) hydroxyzine HCl 25 mg tablet 25 mg PO TID PRN Anxiety 06/02/23 06/02/23 History lisinopril 5 mg tablet 5 mg PO DAILY 06/02/23 06/02/23 History loratadine 10 mg tablet 10 mg PO DAILY 06/02/23 06/02/23 History methocarbamol 750 mg tablet 750 mg PO BID PRN Muscle Spasm 06/02/23 06/02/23 History metoprolol succinate 25 mg 12.5 mg PO DAILY 06/02/23 06/02/23 History tablet,extended release 24 hr mirtazapine 30 mg tablet 30 mg PO HS 10/29/23 10/29/23 History omeprazole 40 mg capsule,delayed 40 mg PO DAILY 06/02/23 06/02/23 History release tiotropium bromide 2.5 2 puff inhalation DAILY 06/02/23 06/02/23 History mcg/actuation mist for inhalation (Spiriva Respimat) Past Med/Surg History Medical History (Updated 06/02/23 @ 02:38 by Miguel Noyola MD) Alcohol use disorder Allergic rhinitis Anxiety COPD (chronic obstructive pulmonary disease) Depression Frontal headache GERD (gastroesophageal reflux disease) Hyperlipidemia Hypertension Muscle spasm Osteoarthritis Tobacco use disorder Vitamin D deficiency Social History Smoking Status: Current every day smoker Feels Safe at Home: Yes Review of Systems Review of Systems: The patient denies chest pain, palpitations, change in her chronic shortness of breath or dyspnea on exertion, cough, lower extremity swelling, sore throat, fevers, chills, sweats, nausea, vomiting, diarrhea , constipation, abdominal pain, pelvic pain, blood in urine or stool, dysuria, urinary frequency or urgency, rash, abnormal bruising or bleeding, focal weakness, numbness or tingling in left arm or bilateral legs, generalized arthralgias or myalgias, back or neck pain, or night sweats. The review of systems is otherwise negative other than for that already noted above, and at least 10 systems have been reviewed. Physical Exam Physical Exam: The patient is awake, alert and oriented, but occasionally falls asleep, well developed and well nourished, right supraorbital and periorbital swelling, with eye closed due to swelling, lying in bed and otherwise in no acute distress. HEENT--PERRL, EOMI, mucous membranes and oropharynx dry. Right supraorbital and lid swelling and edema with right eye closed due to swelling. Neck--supple. No JVD. No bruits. Thyroid normal, trachea midline, no adenopathy. Heart--normal S1 and S2. No murmurs, rubs or gallops. Lungs--clear bilaterally, no respiratory distress, no accessory muscle use. Abdomen--normal bowel sounds and soft. Nontender. Nondistended, no hernias or masses, no organomegaly. Extremities--no cyanosis or clubbing. No edema. Dermatologic--normal except for right eye Neurologic--cranial nerves II through XII grossly intact. Rheumatologic--normal range of motion. Psychiatric--normal affect. Results & Data Results & Data Vital Signs (Past 12 Hours) Vital Signs Temp Pulse Pulse Resp BP BP Pulse Ox 06/01/23 23:00 105 H 24 123/76 95 06/01/23 22:30 102 H 20 121/82 94 06/01/23 22:00 111 H 25 H 117/68 94 06/01/23 21:31 124 H 18 92 06/01/23 21:31 81/40 L 06/01/23 21:30 125 H 26 H 130/72 92 06/01/23 21:26 130/72 06/01/23 21:26 128 H 25 H 92 06/01/23 21:40 120 H 20 97/79 L 94 06/01/23 21:21 133 H 18 92 06/01/23 21:10 146 H 06/01/23 20:41 36.8 C 111 H 22 119/86 94 O2 Del Method 06/01/23 23:00 06/01/23 22:30 06/01/23 22:00 06/01/23 21:31 06/01/23 21:31 06/01/23 21:30 06/01/23 21:26 06/01/23 21:26 06/01/23 21:40 Room Air 06/01/23 21:21 Room Air 06/01/23 21:10 06/01/23 20:41 Room Air Laboratory Results Laboratory Results WBC 10.52 K/ul (4.8-10.8) 06/01/23 20:45 RBC 4.18 M/uL (4.20-5.40) L 06/01/23 20:45 Hgb 10.6 g/dl (12.0-16.0) L 06/01/23 20:45 Hct 33.2 % (37.0-47.0) L 06/01/23 20:45 MCV 79.4 fL (80.0-100.0) L 06/01/23 20:45 MCH 25.4 pg (25.0-34.0) 06/01/23 20:45 MCHC 31.9 g/dL (32.0-36.0) L 06/01/23 20:45 RDW Std Deviation 51.8 fL (36.4-46.3) H 06/01/23 20:45 RDW Coeff of Micheal 17.9 % (11.5-14.5) H 06/01/23 20:45 Plt Count 392 K/uL (130-400) 06/01/23 20:45 MPV 9.4 fL (9.4-12.4) 06/01/23 20:45 Immature Gran % (Auto) 0.3 % 06/01/23 20:45 Neut % (Auto) 52.1 % 06/01/23 20:45 Lymph % (Auto) 37.2 % 06/01/23 20:45 [place] % (Auto) 7.5 % 06/01/23 20:45 Eos % (Auto) 2.2 % 06/01/23 20:45 Baso % (Auto) 0.7 % 06/01/23 20:45 Neut # (Auto) 5.49 K/uL (1.40-6.50) 06/01/23 20:45 Lymph # (Auto) 3.91 K/uL (1.20-3.40) H 06/01/23 20:45 [place] # (Auto) 0.79 K/uL (0.11-0.59) H 06/01/23 20:45 Eos # (Auto) 0.23 K/uL (0.00-0.50) 06/01/23 20:45 Baso # (Auto) 0.07 K/uL (0.00-0.20) 06/01/23 20:45 Immature Gran # (Auto) 0.03 K/uL (0.01-0.20) 06/01/23 20:45 PT 10.9 Seconds (9.0-12.0) 06/01/23 20:45 INR 1.0 (0.9-1.1) 06/01/23 20:45 Sodium 139 mmol/L (136-145) 06/01/23 20:45 Potassium 4.0 mmol/L (3.5-5.1) 06/01/23 20:45 Chloride 104 mmol/L (98-107) 06/01/23 20:45 Carbon Dioxide 24 mmol/L (21-32) 06/01/23 20:45 Anion Gap 11 (3-11) 06/01/23 20:45 BUN 9 mg/dl (6-23) 06/01/23 20:45 Creatinine 0.87 mg/dl (0.6-1.2) 06/01/23 20:45 Est Cr Clr Drug Dosing 66.5 ml/min 06/01/23 20:45 Est GFR ( Amer) 82.2 ml/min 06/01/23 20:45 Est GFR (Non-Af Amer) 70.9 ml/min 06/01/23 20:45 BUN/Creatinine Ratio 10.3 (10-20) 06/01/23 20:45 Glucose 123 mg/dl (70-99(Fasting)) H 06/01/23 20:45 Calcium 9.7 mg/dl (8.6-10.3) 06/01/23 20:45 Total Bilirubin 0.2 mg/dl (0.2-1.0) 06/01/23 20:45 AST 23 U/L (13-39) 06/01/23 20:45 ALT 13 U/L (7-52) 06/01/23 20:45 Alkaline Phosphatase 56 U/L (34-104) 06/01/23 20:45 Troponin I High Sens 5.7 pg/ml (0-14) 06/01/23 20:45 Total Protein 7.2 gm/dl (6.0-8.3) 06/01/23 20:45 Albumin 4.3 gm/dl (3.4-5.0) 06/01/23 20:45 Globulin 2.9 gm/dl (2.5-4.0) 06/01/23 20:45 Albumin/Globulin Ratio 1.5 (0.9-2) 06/01/23 20:[address] 06/01/23 21:10 Exam(s): CT C SPINE EXAM: CT Cervical Spine Without Intravenous Contrast CLINICAL HISTORY: Reason for exam: Trauma. TECHNIQUE: Axial computed tomography images of the cervical spine without intravenous contrast. CTDI is 38.31 mGy and DLP is 1188.72 mGy-cm. Automated exposure control was utilized for the study. A dose lowering technique was utilized adhering to the principles of ALARA. COMPARISON: No relevant prior studies available. FINDINGS: Vertebrae: Advanced multilevel degenerative arthropathy on the left. No acute fracture. No misalignment. Discs/spinal canal/neural foramina: Degenerative disc disease in the lower cervical spine. No spinal canal stenosis. Soft tissues: Unremarkable. IMPRESSION: No acute findings in the cervical spine. Electronically signed by: Power Parekh MD 06/01/23 22:[address] 06/01/23 21:10 Exam(s): CT FACIAL Without Contrast EXAM: CT Maxillofacial Without Intravenous Contrast CLINICAL HISTORY: Reason for exam: Trauma. TECHNIQUE: Axial computed tomography images of the face without intravenous contrast. CTDI is 38.31 mGy and DLP is 1188.72 mGy-cm. Automated exposure control was utilized for the study. A dose lowering technique was utilized adhering to the principles of ALARA. COMPARISON: No relevant prior studies available. FINDINGS: Bones/joints: No acute fracture. Soft tissues: Unremarkable. Orbits: Extensive right periorbital and supraorbital hematoma. Sinuses: Unremarkable. No air-fluid levels. Dental: Multiple dental caries. Periodontal erosion involving the second right maxillary bicuspid. IMPRESSION: No acute fracture. Electronically signed by: Power Parekh MD 06/01/23 22:[address] 06/01/23 21:10 Exam(s): CT HEAD Without Contrast EXAM: CT Head Without Intravenous Contrast CLINICAL HISTORY: Reason for exam: Trauma. TECHNIQUE: Axial computed tomography images of the head/brain without intravenous contrast. CTDI is 38.31 mGy and DLP is 1188.72 mGy-cm. Automated exposure control was utilized for the study. A dose lowering technique was utilized adhering to the principles of ALARA. COMPARISON: No relevant prior studies available. FINDINGS: Brain: Abnormal vasogenic edema within the posterior left frontal lobe. . No cortical edema. No hemorrhage. No abnormal mass-effect. Ventricles: Unremarkable. No ventriculomegaly. Bones/joints: Unremarkable. No acute fracture. Soft tissues: Right periorbital and supraorbital hematoma and soft tissue swelling. Sinuses: Unremarkable as visualized. No acute sinusitis. Mastoid air cells: Unremarkable as visualized. No mastoid effusion. IMPRESSION: 1. Right periorbital and supraorbital hematoma and soft tissue swelling. 2. Abnormal vasogenic edema within the posterior left frontal lobe. Recommend a CT scan with contrast or an MRI with and without contrast to look for underlying lesion. Electronically signed by: Power Parekh MD 06/01/23 22:21 PM Abdomen/Pelvis CT 06/01/23 22:41 Exam(s): CT ABDOMEN + PELVIS With Contrast IV Amt: 93 ML EXAM: CT Abdomen and Pelvis With Intravenous Contrast CLINICAL HISTORY: Reason for exam: r/o primary onc lesion. TECHNIQUE: Axial computed tomography images of the abdomen and pelvis with intravenous contrast. CTDI is 36.5 mGy and DLP is 1550.66 mGy-cm. Automated exposure control was utilized for the study. A dose lowering technique was utilized adhering to the principles of ALARA. CONTRAST: Patient received 93 ML of IV contrast COMPARISON: No relevant prior studies available. FINDINGS: Lung bases: Unremarkable. No mass. No consolidation. ABDOMEN: Liver: No intrahepatic bile duct dilatation. No mass. Gallbladder and bile ducts: The common bile duct is dilated at 9 mm. No high density stone is seen. Pancreas: Unremarkable. No mass. No pancreatic ductal dilatation. Spleen: Unremarkable. No splenomegaly. Adrenals: Unremarkable. No mass. Kidneys and ureters: Unremarkable. No solid mass. No hydronephrosis. Stomach and bowel: Unremarkable. No obstruction. No mucosal thickening. PELVIS: Appendix: No findings to suggest acute appendicitis. Bladder: Unremarkable. No mass. Reproductive: Hysterectomy. ABDOMEN and PELVIS: Intraperitoneal space: Unremarkable. No free air. No significant fluid collection. Bones/joints: No acute fracture. No dislocation. Soft tissues: Supraumbilical small ventral hernia containing omental fat. Vasculature: Unremarkable. No abdominal aortic aneurysm. Lymph nodes: Unremarkable. No enlarged lymph nodes. IMPRESSION: Mild dilatation of the common bile duct. No intrahepatic bile duct dilatation. No associated pancreatic duct dilatation. No evidence of mass. Electronically signed by: Power Parekh MD 06/02/23 00:[address] 06/01/23 22:41 Exam(s): CT CHEST With Contrast IV Amt: 93 ML EXAM: CT Chest With Intravenous Contrast CLINICAL HISTORY: Reason for exam: r/o primary onc lesion. TECHNIQUE: Axial computed tomography images of the chest with intravenous contrast. CTDI is 36.5 mGy and DLP is 1550.66 mGy-cm. Automated exposure control was utilized for the study. A dose lowering technique was utilized adhering to the principles of ALARA. CONTRAST: Patient received 93 ML of IV contrast COMPARISON: No relevant prior studies available. FINDINGS: Lungs: Unremarkable. No mass. No consolidation. Pleural space: Unremarkable. No pneumothorax. No significant effusion. Heart: Unremarkable. No cardiomegaly. No significant pericardial effusion. No significant coronary artery calcifications. Bones/joints: Unremarkable. No acute fracture. No dislocation. Soft tissues: Unremarkable. Vasculature: Unremarkable. No thoracic aortic aneurysm. Lymph nodes: Unremarkable. No enlarged lymph nodes. IMPRESSION: Negative chest CT. Electronically signed by: Power Parekh MD 06/01/23 23:57 PM Code Status & VTE Plan Code Status Full code VTE Prophylaxis Plan VTE Prophylaxis will be ordered: Yes PG Care Time/CCT Total # of Minutes Spent Total Time Spent with Patient: Total time spent is greater than 50% in coordination of care (as documented) at patient's floor/unit and/or counseling patient: Coding Level of Care Code 40789 INT INP/OBS CARE 3/75MIN Diagnoses Traumatic hematoma of forehead S00.83XA Vasogenic brain edema G93.6 Focal seizure R56.9 Right arm weakness R29.898 Hypertension I10 Hyperlipidemia E78.5 COPD (chronic obstructive pulmonary disease) J44.9 Osteoarthritis M19.90 Vitamin D deficiency E55.9 Muscle spasm M62.838 GERD (gastroesophageal reflux disease) K21.9 Depression F32.A Anxiety F41.9 Seizure-like activity R56.9 Tobacco use disorder F17.200 Alcohol use disorder F10.90 Frontal headache R51.9
[2023-06-02] MEDS ORDERED: Patient's ALLERGY Info needs ENTERED STA (00:45)
[2023-06-02] MEDS ORDERED: LORazepam 2 MG/1 ML VIAL IV STA (01:28)
[2023-06-02] MEDS ORDERED: Ativan IV Alcohol Withdrawal--Active Protocol IV PRN (02:25)
[2023-06-02] MEDS ORDERED: LORazepam 2 MG/1 ML VIAL IV PRN ×3 (02:25)
[2023-06-02] MEDS ORDERED: THIAMINE HCL 100 MG/ML 2 ML VIAL IM STA (02:25)
[2023-06-02] MEDS ORDERED: GADOBUTROL 30ML VIAL IV ONE (03:06)
--- NOTE | 2023-06-02 04:50 | Magnetic Resonance Report ---
Exam(s): MRI HEAD W/WO Contrast IV Amt: 7.5 gadavist EXAM: MR Head Without and With Intravenous Contrast CLINICAL HISTORY: Reason for exam: r/o brain lesion. TECHNIQUE: Magnetic resonance images of the head/brain without and with intravenous contrast in multiple planes. CONTRAST: Patient received 7.5 gadavist of IV contrast COMPARISON: Comparison made to prior head CT from May 24, 2023 at 9:37 PM. FINDINGS: This study is suboptimal secondary to motion artifact. Brain: There is a brightly enhancing dural based soft tissue lesion over the left frontal convexity measuring 14.9 x 13 x 10.8 mm with moderate surrounding vasogenic edema. There is calcification or hemorrhage within the lesion. No acute infarct. The flow voids at the base of the right are intact. The dural venous sinuses are patent. Ventricles: Unremarkable. No ventriculomegaly. Bones/joints: There is extensive soft tissue swelling over the right forehead and orbit with hematoma. Sinuses: Unremarkable as visualized. No acute sinusitis. Mastoid air cells: There is a small moderate fluid in the left mastoid air cells. No mastoid effusion. Orbits: Unremarkable as visualized. IMPRESSION: Brightly enhancing dural based lesion over the left frontal convexity measuring 14.9 x 13 x 10.8 mm with moderate amount of vasogenic edema, which may represent an atypical meningioma or dural based metastatic lesion. Electronically signed by: Caridad Georges MD 06/02/23 04:49 AM
[2023-06-02] MEDS ORDERED: ACETAMINOPHEN 1,000 MG/100 ML VIAL IV PRN (06:00)
[2023-06-02 06:43] LABS: Basophils # (auto) 0.04 K/uL (0.00-0.20); Basophils % (auto) 0.4 %; Eosinophils # (auto) 0.14 K/uL (0.00-0.50); Eosinophils % (auto) 1.6 %; Hematocrit (blood only) 28.3 % (37.0-47.0); Hemoglobin 8.8 g/dl (12.0-16.0); Immature Granulocytes # (auto) 0.03 K/uL (0.01-0.20); Immature Granulocytes % (auto) 0.3 %; Lymphocytes # (auto) 3.16 K/uL (1.20-3.40); Lymphocytes % (auto) 35.1 %; Mean Corpuscular Hemoglobin 25.4 pg (25.0-34.0); Mean Corpuscular Hgb Conc 31.1 g/dL (32.0-36.0); Mean Corpuscular Volume 81.8 fL (80.0-100.0); Mean Platelet Volume 9.3 fL (9.4-12.4); Monocytes # (auto) 0.72 K/uL (0.11-0.59); Neutrophils # (auto) 4.92 K/uL (1.40-6.50); Neutrophils % (auto) 54.6 %; Platelet Count 304 K/uL (130-400); RDW Coefficient of Variation 18.1 % (11.5-14.5); RDW Standard Deviation 53.7 fL (36.4-46.3); Red Blood Count 3.46 M/uL (4.20-5.40); White Blood Count 9.01 K/ul (4.8-10.8)
[2023-06-02 07:00] LABS: Albumin Globulin Ratio 1.5 (0.9-2); Albumin Level 3.5 gm/dl (3.4-5.0); BUN Creatinine Ratio 13.3 (10-20); Bilirubin,Total 0.2 mg/dl (0.2-1.0); Calcium 8.5 mg/dl (8.6-10.3); Creatinine Clr Calc Pharmacy 78.2 ml/min; Est GFR (African American) 98.3 ml/min; Est GFR (Non-African American) 84.8 ml/min; Globulin 2.4 gm/dl (2.5-4.0); Potassium 3.9 mmol/L (3.5-5.1); Total Protein 5.9 gm/dl (6.0-8.3)
--- NOTE | 2023-06-02 07:04 | Electrocardiogram Report ---
Test Reason : Blood Pressure : / mmHG Vent. Rate : 136 BPM Atrial Rate : 136 BPM P-R Int : 152 ms QRS Dur : 072 ms QT Int : 308 ms P-R-T Axes : 023 081 070 degrees QTc Int : 463 ms Poor data quality, interpretation may be adversely affected Supraventricular tachycardia Nonspecific ST and T wave abnormality Abnormal ECG No previous ECGs available Confirmed by Gabriel Zafar ([id number]) on 06/02/2023 7:04:17 AM Referred By: REFERRED SELF Confirmed By:Jayy Zafar
[2023-06-02] MEDS ORDERED: dexAMETHasone 10 MG in SYRINGE 0 ML IV ONE (07:30)
[2023-06-02] MEDS: ALBUT/IPRATROP 3MG/0.5MG NEB 3 ML VIAL NEB SCH ×4 (07:35→19:47)
[2023-06-02] MEDS ORDERED: levETIRAcetam 500 MG in SODIUM CHLOR 0.9% MINI-B 100 ML IV SCH (08:00)
[2023-06-02] MEDS: FOLIC ACID 1 MG in SYRINGE 9.8 ML IV SCH (08:05)
--- NOTE | 2023-06-02 08:09 | XCELERA ---
[id number]
[2023-06-02 08:15] LABS: Magnesium 1.3 mg/dl (1.7-2.4)
[2023-06-02 08:34] LABS: Ferritin 5.2 ng/ml (8-388)
[2023-06-02] MEDS ORDERED: THIAMINE HCL 100 MG in SYRINGE 9 ML IV SCH (09:00)
--- NOTE | 2023-06-02 09:41 | Neurology Consultation ---
Date of Consultation June 02, 2023 Assessment & Plan (1) Focal seizure: (2) Right arm weakness: (3) Muscle spasm: (4) Brain lesion: (5) Vasogenic brain edema: (6) Traumatic hematoma of forehead: (7) Fatigue: Plan The patient fell and evening of June 01 striking her right forehead with contusion and swelling of the eyelids. Fortunately, there were no fractures of facial bones or her neck. The patient has weakness, numbness, and spasticity of the right upper extremity with observed focal motor seizures during which she can not control the movements of her arm but is perfectly awake and alert with good recall, speech, memory, and other limb function. MRI of the brain shows a cm extra-axial lesion over the left posterior frontal head region with surrounding vasogenic edema. I believe this is a atypical meningioma but other lesion etiology needs to be excluded. She does not have any evidence of lung cancer by CT scan of the chest despite her longstanding cigarette smoking. CT scan of the abdomen pelvis is normal and she is no history of significant weight loss. The patient does have significant fatigue, but also has iron deficiency anemia with hypomagnesemia and hypocalcemia. Recommendations: 1. Continue levetiracetam 500 mg IV q.8 hours (or 750 mg p.o. b.i.d., once taking p.o. well) 2. Continue Decadron as ordered 3. Address iron deficiency anemia and electrolyte imbalance, as per medicine team 4. Physical and occupational therapy 5. There is no reason for additional neurologic testing including no reason for an EEG at this time 6. The patient needs to be seen and evaluated by Neurosurgery. Overall, I spent a total of 75 minutes with this case including review of records, review of CT and MRI films, direct evaluation the patient at bedside, report generation, and discussion of the case with the patient and RN at bedside as well as Dr. Angela, including differential diagnosis and treatment options. History of Present Illness Reason for Consultation: Patient is a 63-year-old, who I was asked to see at the request of Dr. Angela, for neurologic consultation regarding abnormal MRI of the brain and right upper extremity issues Requesting Physician: Dr. Angela Attending Physician: Paolo Angela MD History of Present Illness This patient has a several year history of COPD, from long time cigarette smoking, hypertension, dyslipidemia, and some mild anxiety and depression. Patient tells me that over the last 1-2 months she is been extremely tired and this is getting worse. Over the last several weeks she is had weakness, numbness, and intermittent episodes of jerking of the right upper extremity. She has no weight loss or night sweats. On the evening of June 01, she was in bed watching TV and then became thirsty. Somewhere between "630 to 730 pm", she got up to go to the kitchen to get something to drink and she noticed that her right upper extremity was tingling and had some jerking. The next thing she knew she was falling and she hit her right eyebrow on a stand. It is uncertain if she had a loss of consciousness but apparently after falling she called her friend and she was brought to the emergency room. She arrived at the emergency room June 01 at 8:41 p.m., with a temperature 36.8, pulse 111, respiratory rate 22, blood pressure 119/86, and O2 saturation 94%. Her exam was considered unremarkable, except for right upper extremity jerking and decreased ability to move the right upper extremity compared to the left. CBC showed anemia. Chem profile was unremarkable except for a mildly elevated glucose. CT scan of the head showed a left posterior frontal lobe area of vasogenic edema. I reviewed these films CT scan of the face showed no fractures. CT scan of the cervical spine was unremarkable. CT scan of the chest and CT of the abdomen pelvis were unremarkable as well. MRI of the brain with without contrast showed an enhancing left extra-axial lesion 1.4 X 1.3 X 1.1 cm, with considerable vasogenic edema. The tumor does not enhance uniformly but it does appear to me to be dural-based. Unfortunately the films are somewhat grainy due to patient movement. I reviewed these films with Dr. Maxwell Echocardiogram showed mild left ventricular hypertrophy and some other mild changes but no significant issues overall. Repeat labs this morning reveal significant anemia with iron deficiency, hypomagnesemia at 1.3, and hypocalcemia at 8.5. The patient had no headache but did have pain around her right orbit which was swollen and ecchymotic, closing her right eye. her right arm was weak and she had some intermittent uncontrollable movements of that arm. She felt that her legs were symmetrical without issue. The patient was given 2 or 3 mg of lorazepam in the emergency room. She was given 1 g levetiracetam IV followed by a further 2 g levetiracetam IV. She was also given 10 mg Decadron IV once. Neurosurgery was consulted [facility] but they felt the patient could be maintained at our institution. Allergies Allergy/AdvReac Type Severity Reaction Status Date / Time No Known Allergies Allergy Unverified 06/02/23 00:53 Home Medications Medication Instructions Recorded Confirmed Type albuterol sulfate 2.5 mg/3 mL 2.5 mg continuous nebulization 06/02/23 06/02/23 History (0.083 %) solution for nebulization .EVERY 4-6 PRN Shortness Of Breath Or Wheezing albuterol sulfate 90 mcg/actuation 2 inh inhalation Q6 PRN Shortness 06/02/23 06/02/23 History breath activated powder inhaler Of Breath Or Wheezing (ProAir RespiClick) atorvastatin 80 mg tablet 80 mg PO DAILY 06/02/23 06/02/23 History celecoxib 200 mg capsule 200 mg PO BID PRN Pain 06/02/23 06/02/23 History cholecalciferol (vitamin D3) 50 50 mcg PO DAILY 06/02/23 06/02/23 History mcg (2,000 unit) tablet (Vitamin D3) hydroxyzine HCl 25 mg tablet 25 mg PO TID PRN Anxiety 06/02/23 06/02/23 History lisinopril 5 mg tablet 5 mg PO DAILY 06/02/23 06/02/23 History loratadine 10 mg tablet 10 mg PO DAILY 06/02/23 06/02/23 History methocarbamol 750 mg tablet 750 mg PO BID PRN Muscle Spasm 06/02/23 06/02/23 History metoprolol succinate 25 mg 12.5 mg PO DAILY 06/02/23 06/02/23 History tablet,extended release 24 hr mirtazapine 30 mg tablet 30 mg PO HS 06/02/23 06/02/23 History omeprazole 40 mg capsule,delayed 40 mg PO DAILY 06/02/23 06/02/23 History release tiotropium bromide 2.5 2 puff inhalation DAILY 06/02/23 06/02/23 History mcg/actuation mist for inhalation (Spiriva Respimat) Patient History Medical History (Updated 06/02/23 @ 10:02 by Lenin Dalton MD) Alcohol use disorder Allergic rhinitis Anxiety COPD (chronic obstructive pulmonary disease) Depression Frontal headache GERD (gastroesophageal reflux disease) Hyperlipidemia Hypertension Muscle spasm Osteoarthritis Tobacco use disorder Vitamin D deficiency Surgical History (Updated 06/02/23 @ 09:50 by Lenin Dalton MD) S/P hysterectomy Family History Mother , age 69 of liver cancer Liver cancer Father , 04/12/2072 of heart disease Heart disease Social History (Updated 06/02/23 @ 09:52 by Lenin Dalton MD) Smoking Status: Current every day smoker Tobacco Type: Cigarettes Age Started Using Tobacco: 16; packs per day: 0.25; Cigarettes Per Day: 1/2 pack to 1 pack for the past 40-50 years; Second Hand Exposure: No; Do You Dip or Chew Tobacco: No; Hx Alcohol Use: Yes Alcohol type: beer and hard liquor Alcohol Intake Frequency: 2-4 x/Month Hx Substance Use: No Preferred Language: Vietnamese Communication Ability: Effective Ticket Printer And Tagger Required: No Beliefs That Will Affect Care: None Current Living Situation: Alone current occupational status: retired 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 Feels Safe at Home: Yes Review of Systems Constitutional: + fatigue, + malaise and + daytime sleepiness; no fever and no weakness Eyes: no diplopia, no eye pain and no worsening vision Ear, Nose, Mouth, Throat: no ear pain, no tinnitus, no hearing loss, no dizziness, no snoring, no hoarseness and no dysphagia Respiratory: no cough and no dyspnea Cardiovascular: no chest pain, no palpitations and no lightheadedness Gastrointestinal: no abdominal pain, no nausea and no vomiting Genitourinary: no dysuria, no urinary frequency and no urinary incontinence Musculoskeletal: no back pain, no neck pain, no radicular pain, no joint pain and no myalgia Integumentary: no rash and no lesions Neurologic: + localized weakness, + numbness, + abnormal movements and + headache(s); no gait abnormality, no generalized weakness, no tingling, no tremor(s), no abnormal speech, no confusion and no memory loss Psychiatric: no depression, no irritability, no anxiety, no difficulty concentrating, no confusion and no hallucinations Endocrine: no fatigue and no flushing Hematologic / Lymphatic: no easy bleeding and no easy bruising Allergy / Immunological: no urticaria and no problem reported Exam (Neuro) Physical Exam: The patient is right-handed. Patient was sleeping when I came into the room. With loud voice she woke up and was somewhat tired and sleepy but cooperative throughout the interview and exam. She had no obvious aphasia or dysarthria. Mood was normal and affect was appropriate. Thought processes were intact and she had good long and short-term memory to conversation. Pupils are 4 mm bilaterally and reactive to light. The right eyelid had to be propped open to see the eye and this gave her some discomfort but otherwise, Extraocular eye muscles are intact without nystagmus. Visual acuity and visual junior seem normal grossly to confrontation. There are no deficits to sensation in the face in all 3 distributions of the fifth cranial nerve bilaterally. Corneal reflexes are positive bilaterally. Facial strength and symmetry was normal bilaterally. Hearing seems normal bilaterally. Palate moves well without asymmetry. There is normal sternocleidomastoid and trapezius (shoulder shrug) strength bilaterally. Tongue is midline with good strength bilaterally. Neck has a full range of motion without discomfort. There are no cervical bruits bilaterally. There are no cranial or ocular bruits. Heart is without murmur. There is a regular rhythm and rate. Gait was not tested but stance sitting up bed is reasonable With outstretched arms there is no drift on the left. There are no resting, postural, or action tremors. There is no ataxia with finger to nose testing on the left. There is good facility in the left hand. In the right upper extremity, they are intermittent twitching movements that she can not control and there is 1-2/5 strength throughout with clumsiness in the right hand. Motor strength is 5/5 diffusely in the left upper extremity including deltoids, biceps, triceps, brachioradialis, wrist flexors and extensors, boat oar maker, and intrinsic hand muscles. Motor strength is 5/5 diffusely in the legs bilaterally including hip flexors, quadriceps, hamstrings, gastrocnemius, tibialis anterior, tibialis posterior, and Peroneii muscles. Toe extensors are normal and there is good bulk in the extensor digitorum brevis muscles bilaterally. Right upper extremity has increased tone and spasticity There is no atrophy noted in the muscles. Muscle bulk is normal, there is no tenderness to palpation, no myotonia to percussion, and no fasciculations seen. There is some decreased sensation to touch diffusely in the right upper extremity compared to the left in the legs which are normal. Reflexes are 3/4 in the right upper extremity biceps, triceps, and brachioradialis tendons. Left upper extremity reflexes are 2/4. Quadriceps and Achilles tendons are 1/4 bilaterally. There is no clonus bilaterally. Toes are downgoing with plantar stimulation on the left and upgoing to plantar stimulation on the right. Peripheral pulses are present and of normal quality distally in all 4 limbs. There is no peripheral edema noted in the limbs. Results & Data Vital Signs (Past 12 Hours) Vital Signs Temp Pulse Pulse Resp BP BP Pulse Ox 06/02/23 08:01 36.5 C 88 19 126/82 95 06/02/23 07:38 80 16 90 06/02/23 03:17 87 06/02/23 03:23 84 16 113/75 96 06/02/23 01:48 99 H 06/02/23 01:22 101 H 20 115/64 97 06/01/23 23:00 105 H 24 123/76 95 06/01/23 22:30 102 H 20 121/82 94 06/01/23 22:00 111 H 25 H 117/68 94 06/01/23 21:40 120 H 20 97/79 L 94 O2 Del Method 06/02/23 08:01 Room Air 06/02/23 07:38 Room Air 06/02/23 03:17 06/02/23 03:23 Room Air 06/02/23 01:48 06/02/23 01:22 Room Air 06/01/23 23:00 06/01/23 22:30 06/01/23 22:00 06/01/23 21:40 Room Air PG Care Time/CCT Total # of Minutes Spent Total Time Spent with Patient: Total time spent is greater than 50% in coordination of care (as documented) at patient's floor/unit and/or counseling patient: Coding Level of Care Code 75896 INT INP/OBS CARE 3/75MIN Diagnoses Focal seizure R56.9 Right arm weakness R29.898 Muscle spasm M62.838 Brain lesion G93.9 Vasogenic brain edema G93.6 Traumatic hematoma of forehead S00.83XA Fatigue R53.83 Time Spent (min) 75
[2023-06-02] MEDS: PANTOprazole 40 MG in SYRINGE 0 ML IV SCH (10:36)
[2023-06-02] MEDS: MAGNESIUM SULFATE / D5W 1 GM/100 ML BAG IV SCH ×3 (10:36→14:37)
[2023-06-02] MEDS: dexAMETHasone 4 MG in SYRINGE 0 ML IV SCH ×2 (13:36→20:44)
[2023-06-02] MEDS ORDERED: METOPROLOL TARTRATE 1 MG/ML VIAL IV STA (13:38)
[2023-06-02 18:45] LABS: Hematocrit (blood only) 30.2 % (37.0-47.0); Hemoglobin 9.3 g/dl (12.0-16.0)
[2023-06-02 19:30] LABS: Folate (Folic Acid),Ser orPlas 9.23 ng/ml (>5.38)
--- NOTE | 2023-06-02 19:36 | Hospitalist Progress Note ---
Date of Service June 02, 2023 Assessment & Plan (1) Brain lesion: Plan: MRI brain with the following -- "Brightly enhancing dural based lesion over the left frontal convexity measuring 14.9 x 13 x 10.8 mm with moderate amount of vasogenic edema, which may represent an atypical meningioma or dural based metastatic lesion." ER attending had contacted neurosurgery at [facility] but this was prior to MRI brain being available. I consulted Dr Dalton from [facility] Neurology today. He recommends transfer for biopsy after she is more stable (correction of mag level, control of seizures, etc). I agree with that recommendation. Cont IV steroids - dexamethasone 4mg IV q8h. Vasogenic edema should improve within 48-72 hours with such. Is this lesion a metastatic lesion in light of severe iron deficiency (colon ca or other primary GI tract cancer)? Meningioma? Other? (2) Focal seizure: Plan: The patient is having ongoing RUE focal seizures due to #1 above. s/p keppra load in ER. Dr Dalton advises increase keppra to 750mg BID - that change has been made. Ativan prn. As brain swelling improves and keppra takes hold the seizures should improve. (3) Traumatic hematoma of forehead: Plan: severe right sided facial trauma but fortunately no fractures or injury other than soft tissue (4) Vasogenic brain edema: Plan: as above in #1 (5) Right arm weakness: Plan: 2nd to #1 above steroids as above will ultimately need PT/OT (6) Hypertension: Plan: typically on lisinopril + metoprolol succinate at home will hold former but resume latter (7) Hyperlipidemia: Plan: can resume lipitor tomorrow (8) COPD (chronic obstructive pulmonary disease): Plan: long-standing tobacco use quit in the last 1-2 weeks declines nicoderm patch minimal wheezes on exam today resume home spiriva put scheduled albuterol on hold since she is so tachycardic (9) GERD (gastroesophageal reflux disease): Plan: PPI (10) Tobacco use disorder: Plan: declines nicotine replacement while here (11) Alcohol use disorder: Plan: patient drinks beer + liquor by report she states she does not drink daily and has never experienced withdrawal [id number] she is on AWSS protocol with symptom triggered ativan as needed increase thiamine to 200mg BID cont folic acid (12) Iron deficiency anemia: Plan: severe, with ferritin 5 and transferrin sat of 4% denies melena stool denies GI symptoms denies BRBPR in light of etoh and tobacco use she needs endoscopic evaluation when medically stable - certainly #1, #2 take precedence at this time serial H/H's to ensure she is not having an active GI bleed consider venofer cbc am (13) Tachycardia: Plan: ?sinus vs SVT likely sinus -- rates were <100 overnight, byron to >100 during the day there is a gradual lowering of HR over several hours as opposed to abrupt changes that would argue for dysrhythmia check a TSH resume home metoprolol (14) DVT prophylaxis: Plan: defer on chemical means at this time due to #1 (15) Hypomagnesemia: Plan: replaced with 3 grams mag sulfate today repeat level now normal 2nd to etoh use?? (16) Dilated bile duct: Plan: CBD is 9mm on CT abd/pelvis etiology? still has gall bladder will obtain RUQ u/s in am for more information (17) B12 deficiency: Plan: level 180s start B12 supplement - 1000mcg daily Plan spoke with Vivian - pt's best friend - by phone this evening pt declined me calling a family member care d/w Dr Dalton - neuro care informally discussed with cardiology (rhythm strips, EKG) multiple correspondences with nursing staff very complex care coordination total time spent on care activities today - 90 minutes Admission and Anticipated Discharge Date Admission Date: June 02, 2023 Subjective patient resting in bed during the visit she was very distraught & emotional, crying at times the right arm movements (seizures) have been severe she is right-handed and has not been able to use the arm normally no right leg symptoms nothing on left since arriving to [facility] and receiving IV keppra the involuntary movements/focal seizures have improved considerably but are not fully gone patient denies any melena or BRBPR denies any recent weight loss denies abd pains with eating or N/V denies chest pain but does have episodes of "heart racing" at home tele with tachycardia - mostly sinus with respect to etoh use - states she doesn't drink daily, and denies past h/o etoh withdrawal of note - she remembers very little of her visit with Dr Dalton earlier in the day Review of Systems Review of Systems: gen - no fevers, chills or weight loss cv - no chest pain pulm - no dyspnea GI - no abd pain or N/V Physical Exam Physical Exam: gen - emotional, tearful - but NAD head - right periorbital hematoma - severe - extending onto the right lower forehead and right maxillary area mouth - MMM neck - no JVD heart - tachy s1 s2 no murmur lungs - scattered end-exp wheezes b/l abd - soft NT ND BS+ ext - no edema, pulses 2+ b/l neuro - right arm focal seizure with involuntary flexion of hand muscles noted Results & Data Results & Data Vital Signs (Past 12 Hours) Vital Signs Temp Pulse Pulse Resp BP BP Pulse Ox 06/02/23 19:00 37.0 C 112 H 20 118/73 94 06/02/23 16:39 104 H 06/02/23 15:47 36.6 C 109 H 18 114/75 95 06/02/23 14:55 96 H 18 93 06/02/23 14:12 101 H 115/73 06/02/23 13:57 117 H 123/74 06/02/23 10:40 60 16 93 06/02/23 11:28 36.6 C 106 H 18 124/82 93 06/02/23 09:52 79 06/02/23 09:39 06/02/23 08:01 36.5 C 88 19 126/82 95 06/02/23 07:38 80 16 90 O2 Del Method 06/02/23 19:00 Room Air 06/02/23 16:39 06/02/23 15:47 Room Air 06/02/23 14:55 Room Air 06/02/23 14:12 06/02/23 13:57 06/02/23 10:40 Room Air 06/02/23 11:28 Room Air 06/02/23 09:52 06/02/23 09:39 Room Air 06/02/23 08:01 Room Air 06/02/23 07:38 Room Air Laboratory Results Laboratory Results - last 24 hr 06/02/23 06/02/23 06/02/23 05:50 05:50 18:31 WBC 9.01 RBC 3.46 L Hgb 8.8 L 9.3 L Hct 28.3 L 30.2 L MCV 81.8 MCH 25.4 MCHC 31.1 L RDW Std Deviation 53.7 H RDW Coeff of Micheal 18.1 H Plt Count 304 MPV 9.3 L Immature Gran % (Auto) 0.3 Neut % (Auto) 54.6 Lymph % (Auto) 35.1 Real % (Auto) 8.0 Eos % (Auto) 1.6 Baso % (Auto) 0.4 Neut # (Auto) 4.92 Lymph # (Auto) 3.16 Real # (Auto) 0.72 H Eos # (Auto) 0.14 Baso # (Auto) 0.04 Immature Gran # (Auto) 0.03 Sodium 140 Potassium 3.9 Chloride 110 H Carbon Dioxide 25 Anion Gap 5 BUN 10 Creatinine 0.75 Est Cr Clr Drug Dosing 78.2 Est GFR ( Amer) 98.3 Est GFR (Non-Af Amer) 84.8 BUN/Creatinine Ratio 13.3 Glucose 91 Calcium 8.5 L Magnesium 1.3 L Iron 14 L TIBC 366 Unsaturated IBC 352 Transferrin % Sat 4 L Ferritin 5.2 L Total Bilirubin 0.2 AST 17 ALT 11 Alkaline Phosphatase 43 Total Protein 5.9 L Albumin 3.5 Globulin 2.4 L Albumin/Globulin Ratio 1.5 Vitamin B12 Folate 06/02/23 06/02/23 18:32 18:32 WBC RBC Hgb Hct MCV MCH MCHC RDW Std Deviation RDW Coeff of Micheal Plt Count MPV Immature Gran % (Auto) Neut % (Auto) Lymph % (Auto) Real % (Auto) Eos % (Auto) Baso % (Auto) Neut # (Auto) Lymph # (Auto) Real # (Auto) Eos # (Auto) Baso # (Auto) Immature Gran # (Auto) Sodium Potassium Chloride Carbon Dioxide Anion Gap BUN Creatinine Est Cr Clr Drug Dosing Est GFR ( Amer) Est GFR (Non-Af Amer) BUN/Creatinine Ratio Glucose Calcium Magnesium 2.1 Iron TIBC Unsaturated IBC Transferrin % Sat Ferritin Total Bilirubin AST ALT Alkaline Phosphatase Total Protein Albumin Globulin Albumin/Globulin Ratio Vitamin B12 186 Folate 9.23 Diagnostic Findings Exam(s): MRI HEAD W/WO Contrast IV Amt: 7.5 gadavist EXAM: MR Head Without and With Intravenous Contrast CLINICAL HISTORY: Reason for exam: r/o brain lesion. TECHNIQUE: Magnetic resonance images of the head/brain without and with intravenous contrast in multiple planes. CONTRAST: Patient received 7.5 gadavist of IV contrast COMPARISON: Comparison made to prior head CT from May 24, 2023 at 9:37 PM. FINDINGS: This study is suboptimal secondary to motion artifact. Brain: There is a brightly enhancing dural based soft tissue lesion over the left frontal convexity measuring 14.9 x 13 x 10.8 mm with moderate surrounding vasogenic edema. There is calcification or hemorrhage within the lesion. No acute infarct. The flow voids at the base of the right are intact. The dural venous sinuses are patent. Ventricles: Unremarkable. No ventriculomegaly. Bones/joints: There is extensive soft tissue swelling over the right forehead and orbit with hematoma. Sinuses: Unremarkable as visualized. No acute sinusitis. Mastoid air cells: There is a small moderate fluid in the left mastoid air cells. No mastoid effusion. Orbits: Unremarkable as visualized. IMPRESSION: Brightly enhancing dural based lesion over the left frontal convexity measuring 14.9 x 13 x 10.8 mm with moderate amount of vasogenic edema, which may represent an atypical meningioma or dural based metastatic lesion. Electronically signed by: Caridad Georges MD 06/02/23 04:49 AM Dictated:06/02/239 Transcribed: 06/02/239 PG Care Time/CCT Total # of Minutes Spent Total Time Spent with Patient: Total time spent is greater than 50% in coordination of care (as documented) at patient's floor/unit and/or counseling patient: Prolonged Care Time Prolonged Care Time: Yes Total Prolonged Care Time: 90 Coding Level of Care Code 53279 SUB INP/OBS CARE 3/50MIN (25 - SIGNIFICANT, SEPARATELY IDENTIFIABLE ) Diagnoses Brain lesion G93.9 Focal seizure R56.9 Traumatic hematoma of forehead S00.83XA Vasogenic brain edema G93.6 Right arm weakness R29.898 Hypertension I10 Hyperlipidemia E78.5 COPD (chronic obstructive pulmonary disease) J44.9 GERD (gastroesophageal reflux disease) K21.9 Tobacco use disorder F17.200 Alcohol use disorder F10.90 Iron deficiency anemia D50.9 Tachycardia R00.0 DVT prophylaxis Z29.9 Hypomagnesemia E83.42 Dilated bile duct K83.8 B12 deficiency E53.8 Additional Codes Prolonged Care Time - Prolonged Care Time: Yes ([id number])
[2023-06-02] MEDS: levETIRAcetam 250 MG TAB PO SCH (20:44)
[2023-06-02] MEDS ORDERED: THIAMINE HCL 200 MG in SYRINGE 9 ML IV SCH (21:15)
[2023-06-02] MEDS: THIAMINE HCL 200 MG in SODIUM CHLORIDE 0.9% 50 ML IV SCH (22:00)
[2023-06-03] MEDS: dexAMETHasone 4 MG in SYRINGE 0 ML IV SCH ×3 (05:14→20:40)
[2023-06-03] MEDS ORDERED: ALBUT/IPRATROP 3MG/0.5MG NEB 3 ML VIAL NEB PRN (05:52)
[2023-06-03 06:33] LABS: Hematocrit (blood only) 27.1 % (37.0-47.0); Hemoglobin 8.9 g/dl (12.0-16.0); Mean Corpuscular Hemoglobin 25.5 pg (25.0-34.0); Mean Corpuscular Hgb Conc 32.8 g/dL (32.0-36.0); Mean Corpuscular Volume 77.7 fL (80.0-100.0); Mean Platelet Volume 9.3 fL (9.4-12.4); Platelet Count 343 K/uL (130-400); RDW Coefficient of Variation 18.1 % (11.5-14.5); RDW Standard Deviation 50.5 fL (36.4-46.3); Red Blood Count 3.49 M/uL (4.20-5.40); White Blood Count 13.57 K/ul (4.8-10.8)
[2023-06-03 06:59] LABS: BUN Creatinine Ratio 9.8 (10-20); Calcium 9.1 mg/dl (8.6-10.3); Creatinine Clr Calc Pharmacy 63.8 ml/min; Est GFR (African American) 76.8 ml/min; Est GFR (Non-African American) 66.3 ml/min; Potassium 4.1 mmol/L (3.5-5.1)
--- NOTE | 2023-06-03 07:09 | Ultrasound Report ---
ULTRASOUND RIGHT UPPER QUADRANT ABDOMEN CLINICAL HISTORY: Dilated common bile duct seen by CT. COMPARISON STUDY: Abdominal CT dated 06/01/2023. TECHNIQUE: Real-time, grayscale, and color flow sonography of the right upper quadrant of the abdomen was performed. Images are reviewed in the transverse and longitudinal planes. FINDINGS: Liver: The liver is top normal in size. Echotexture is heterogeneous increased indicating steatosis. Fatty sparing is seen adjacent to the fermin hepatis and gallbladder fossa. There is no intrahepatic b iliary ductal dilatation. The main portal vein is patent. Gallbladder: The gallbladder is contracted and normal in appearance. No shadowing gallstones are iden tified. There is no gallbladder wall thickening or pericholecystic fluid. A sonographic Otoole's sign is reportedly absent. The common bile duct measures up to 0.8 cm in diameter. Pancreas: Visualized portions of the pancreatic head and body are normal in appearance. The splenic v ein is patent. Right kidney: Survey images of the right kidney demonstrate normal size and echotexture. There is no hydronephrosis. A 1.0 cm cyst is incidentally noted. Ascites: None. IMPRESSION: 1. No acute sonographic abnormality is seen in the right upper quadrant. 2. The gallbladder is contracted, with no gallstones identified. 3. Hepatic steatosis. 4. Mild nonspecific dilatation of the common bile duct is unchanged. There is no intrahepatic biliary ductal dilatation. ACT 112: Negative or not required by law. Electronically signed by: Da Lucia M.D. 06/03/2023 7:08 AM
[2023-06-03 07:14] LABS: Thyroid Stimulating Hormone 0.19 uIu/ml (0.300-4.500)
[2023-06-03 07:50] LABS: T4 Free Thyroxine 0.56 ng/dl (0.61-1.60)
[2023-06-03] MEDS: METOPROLOL TARTRATE 25 MG TAB PO SCH ×2 (08:53→20:40)
[2023-06-03] MEDS: FOLIC ACID 1 MG in SYRINGE 9.8 ML IV SCH (08:55)
[2023-06-03] MEDS: levETIRAcetam 250 MG TAB PO SCH ×2 (08:55→20:39)
[2023-06-03] MEDS: THIAMINE HCL 200 MG in SODIUM CHLORIDE 0.9% 50 ML IV SCH ×2 (08:55→20:39)
[2023-06-03] MEDS ORDERED: UMECLIDINIUM BROMIDE 62.5MCG/BLISTER 7 PUFFS/INHALER INH SCH (09:00)
[2023-06-03] MEDS ORDERED: CYANOCOBALAMIN (B-12) 500 MCG TABLET PO SCH (09:00)
[2023-06-03] MEDS: PANTOprazole 40 MG in SYRINGE 0 ML IV SCH (10:20)
--- NOTE | 2023-06-03 10:48 | Neurology Progress Note ---
Date of Service June 03, 2023 Assessment & Plan (1) Focal motor seizure: (2) Brain lesion: (3) Vasogenic brain edema: Plan 63-year-old right-handed female who has been experiencing periodic focal motor/sensory seizures affecting the distal right upper extremity, now admitted after collapse, generalized seizure. Brain MRI reveals an enhancing dural based lesion of the left frontal convexity measuring 15 x 13 x 11 mm with a moderate degree of associated vasogenic edema. Imaging suggestive of an atypical meningioma versus possible dural based metastatic lesion. No known history of underlying malignancy, CT of the chest abdomen pelvis negative for malignancy. Continue with dexamethasone as ordered, may transition to p.o. when medically appropriate. Continue with levetiracetam as ordered. Patient will need urgent neurosurgical evaluation for resection of the dural based lesion which has likely been symptomatic, presenting with recurrent focal motor/sensory seizures. I do agree that transfer to a tertiary center with neurosurgical services is indicated given this patient's profound deficit affecting her dominant limb. Her current weakness is likely related to a combination of postictal Francesco's paralysis as well as vasogenic edema and underlying structural lesion. Consider further work-up in the context of the possibility of a dural metastatic lesion (colon, breast)? Admission and Anticipated Discharge Date Admission Date: June 02, 2023 Subjective Follow-up for focal motor seizures, brain tumor, The patient is a 63-year-old female who was admitted to the hospital yesterday after a focal onset seizure with secondary generalization, initially characterized by right upper extremity tingling and jerking movements, followed by collapse, loss of consciousness, minor head injury with bruising and ecchymosis around the right orbit. She complains of a low-grade headache but denies experiencing any significant headaches over the previous month or so. She does endorse experiencing periodic episodes of right upper extremity twitching and shaking over the previous month or so, episodes infrequent, perhaps once every week. Up until her current presentation, however, she has never experienced a lapse in awareness, loss of consciousness, or collapse with convulsive activity. She did not have a tongue bite with her recent presentation. A brain MRI completed yesterday revealed a dural based lesion over the left frontal convexity measuring 15 x 13 x 11 mm with a moderate amount of associated vasogenic edema. Imaging characteristics seem consistent with an atypical meningioma although a dural based metastatic lesion cannot be excluded. The patient is a smoker. A CT of the chest abdomen and pelvis were negative for any signs of malignancy. She has been receiving dexamethasone IV every 8 hours as well as levetiracetam 750 mg p.o. twice daily. The patient has been experiencing persistent profound weakness of the distal right upper extremity as well as associated sensory loss. She denies experiencing any weakness of the legs. No vision loss, diplopia, or change in speech or swallowing. Review of Systems Constitutional: no fever and no chills Eyes: no blind spots and no diplopia Neurologic: as per Subjective / HPI, + localized weakness, + loss of sensation, + seizure-like activity and + headache(s); no gait abnormality, no tremor(s), no confusion and no memory loss Results & Data Vital Signs (Past 12 Hours) Vital Signs Temp Pulse Pulse Resp BP Pulse Ox Pulse Ox 06/03/23 08:00 103 H 06/03/23 07:27 94 H 18 96 06/03/23 07:16 36.5 C 103 H 19 133/73 96 06/03/23 03:13 95 06/03/23 03:00 36.7 C 101 H 20 100/81 97 06/02/23 22:46 36.5 C 115 H 18 99/59 L 95 O2 Del Method O2 Del Method 06/03/23 08:00 06/03/23 07:27 Room Air 06/03/23 07:16 Room Air 06/03/23 03:13 Room Air 06/03/23 03:00 Room Air 06/02/23 22:46 Room Air Laboratory Results WBC 13.57, hemoglobin 8.9, hematocrit 27.1, platelet count 343, sodium 137, pota ssium 4.1, BUN 9, creatinine 0.92, glucose 233, magnesium 2.1, AST 17, ALT 11, vitamin B12 186, TSH 0.190, free T40.56 Diagnostic Findings Brain MRI is as described above, I independently reviewed these images. Electrocardiogram reveals sinus tachycardia, 121 bpm. Exam (Neuro) Constitutional: well developed; no acute distress Eyes: normal visual junior by confrontation, PERRL and EOM intact bilaterally Neurologic: Oriented to:: Person, Place and Time Memory: Short Term Intact and Remote Intact Attention: Span Intact and Concentration Intact Speech Fluency: negative Dysarthria or Dysfluency Speech Aphasia: negative Aphasia Fund of Knowledge: Current Events, Past History and Vocabulary Cranial Nerves: Normal II, III, IV, , V, VII, VIII, IX, X, XI and XII Motor Strength: Normal Lower Extremities; negative Normal Upper Extremities (Profound weakness for the right upper extremity, distal greater than proximal, minimal grasp, 0 out of 5 for finger and wrist extension for the left.) Motor Tone: Normal Lower Extremities Flaccidity: Arms Laterality: Right Muscle Bulk/Involuntary Movements: negative No Involuntary Movements or Muscle Atrophy Sensation: negative Light Touch Intact or Proprioception Intact (Profound proprioceptive deficit for the right hand, fingers, and wrist) Coordination: Finger-Nose Abnormal Laterality: Right; negative Limited Balance Deep Tendon Reflexes: Rt Triceps: 3+, Lt Triceps: 2+, Rt Biceps: 3+, Lt Biceps: 2+, Rt Brachioradialis: 3+, Lt Brachioradialis: 2+, Rt Patellar: 2+, Lt Patellar: 2+, Rt Ankle: 2+ and Lt Ankle: 2+ Special Tests: Babinski Present (Right) Coding Level of Care Code 14586 SUB INP/OBS CARE 3/50MIN Diagnoses Focal motor seizure G40.109 Brain lesion G93.9 Vasogenic brain edema G93.6 Time Spent (min) 55
[2023-06-03] MEDS ORDERED: GLUCOSE 40% GEL 15 GM TUBE PO PRN (12:15)
[2023-06-03] MEDS ORDERED: GLUCAGON FOR INJ 1 MG VIAL IM PRN (12:15)
[2023-06-03] MEDS ORDERED: GLUCOSE 10 TAB/TUBE PO PRN (12:15)
[2023-06-03] MEDS ORDERED: CARBOHYDRATES FOR HYPOGLYCEMIA PO PRN (12:15)
[2023-06-03] MEDS ORDERED: LANTUS PER UNIT CHARGE SQ SCH ×2 (12:15→21:00)
[2023-06-03] MEDS ORDERED: DEXTROSE 50% 50 ML SYRINGE IV PRN (12:15)
[2023-06-03] MEDS: INSULIN ASPART PER UNIT CHARGE SC SCH ×3 (12:35→20:40)
--- NOTE | 2023-06-03 13:01 | Electrocardiogram Report ---
Test Reason : Blood Pressure : / mmHG Vent. Rate : 121 BPM Atrial Rate : 121 BPM P-R Int : 136 ms QRS Dur : 090 ms QT Int : 342 ms P-R-T Axes : -24 042 044 degrees QTc Int : 485 ms Sinus tachycardia Nonspecific T wave abnormality Abnormal ECG When compared with ECG of 01-JUN-2023 20:42, No significant change was found Confirmed by Gabriel Zafar ([id number]) on 06/03/2023 1:01:32 PM Referred By: REFERRED SELF Confirmed By:Jayy Zafar
[2023-06-03] MEDS ORDERED: INSULIN ASPART PER UNIT CHARGE SC SCH (16:30)
--- NOTE | 2023-06-03 21:16 | Discharge Summary ---
Date of Service June 03, 2023 Admission HPI Per Admitting Provider The patient is a 63-year-old female with a past medical history including hypertension, hyperlipidemia, COPD, GERD, vitamin D deficiency, muscle spasm, allergic rhinitis, tobacco use and alcohol use disorders and chronic pain syndrome. The patient and friend note that over the past month she has had on and off frontal area headaches, where she would say she needed to go lay down for a little bit. This evening at about 730 as she was getting out of bed, she collapsed, hitting her right forehead, and noted just prior to getting out of bed difficulty with control of her right arm where it was shaking and then b ecame stiff. Her friend notes that when she was called for assistance that the patient's right arm was stiff and she was not able to get her to bend it to be able to get her close changed. She was also noted to have loss of bladder control at that time. She denies any recent travels or sick exposures, she has not had any previous occurrence of falls or loss of control of right arm. She did not have any issues controlling her left arm or bilateral legs. She is chronically short of breath associated with tobacco use, which she did manage to quit about 1 and half weeks ago. Alcohol use is daily hard liquor and beer, with last intake earlier in the day today. Discharge Exam gen - emotional, tearful - but NAD head - right periorbital hematoma - severe - extending onto the right lower forehead and right maxillary area mouth - MMM neck - no JVD heart - tachy s1 s2 no murmur lungs - scattered end-exp wheezes b/l abd - soft NT ND BS+ ext - no edema, pulses 2+ b/l neuro - right arm focal seizure with involuntary flexion of hand muscles noted Discharge Data Allergies Allergy/AdvReac Type Severity Reaction Status Date / Time No Known Allergies Allergy Unverified 06/02/23 00:53 Consultations 06/01/23 23:00 ED Decision to Admit Stat 06/02/23 08:14 Consult Neurology Routine Ordered Studies 06/01/23 21:10 CT cervical spine wo con Stat CT facial bones wo con Stat CT head/brain wo con Stat 06/01/23 22:41 CT abd pelvis IV con only Stat CT chest with contrast [CT chest diagnostic w con] Stat 06/02/23 01:44 MR brain wo/w con Stat 06/03/23 07:00 US gallbladder Routine Hospital Course (1) Brain lesion: MRI brain with the following -- "Brightly enhancing dural based lesion over the left frontal convexity measuring 14.9 x 13 x 10.8 mm with moderate amount of vasogenic edema, which may represent an atypical meningioma or dural based metastatic lesion." ER attending had contacted neurosurgery at [facility] [place] but this was prior to MRI brain being available. I consulted Dr Dalton from [facility] [place] [facility] today. He recommends transfer for biopsy after she is more stable (correction of mag level, control of seizures, etc). I agree with that recommendation. Cont IV steroids - dexamethasone 4mg IV q8h. Vasogenic edema should improve within 48-72 hours with such. Is this lesion a metastatic lesion in light of severe iron deficiency (colon ca or other primary GI tract cancer)? Meningioma? Other? (2) Focal seizure: The patient is having ongoing RUE focal seizures due to #1 above. s/p keppra load in ER. Dr Dalton advises increase keppra to 750mg BID - that change has been made. Ativan prn. As brain swelling improves and keppra takes hold the seizures should improve. (3) Traumatic hematoma of forehead: severe right sided facial trauma but fortunately no fractures or injury other than soft tissue (4) Vasogenic brain edema: as above in #1 (5) Right arm weakness: 2nd to #1 above steroids as above will ultimately need PT/OT (6) Hypertension: typically on lisinopril + metoprolol succinate at home will hold former but resume latter (7) Hyperlipidemia: can resume lipitor tomorrow (8) COPD (chronic obstructive pulmonary disease): long-standing tobacco use quit in the last 1-2 weeks declines nicoderm patch minimal wheezes on exam today resume home spiriva put scheduled albuterol on hold since she is so tachycardic (9) GERD (gastroesophageal reflux disease): PPI (10) Tobacco use disorder: declines nicotine replacement while here (11) Alcohol use disorder: patient drinks beer + liquor by report she states she does not drink daily and has never experienced withdrawal [id number] she is on AWSS protocol with symptom triggered ativan as needed increase thiamine to 200mg BID cont folic acid (12) Iron deficiency anemia: severe, with ferritin 5 and transferrin sat of 4% denies melena stool denies GI symptoms denies BRBPR in light of etoh and tobacco use she needs endoscopic evaluation when medically stable - certainly #1, #2 take precedence at this time serial H/H's to ensure she is not having an active GI bleed consider venofer cbc am (13) Tachycardia: ?sinus vs SVT likely sinus -- rates were <100 overnight, byron to >100 during the day there is a gradual lowering of HR over several hours as opposed to abrupt changes that would argue for dysrhythmia check a TSH resume home metoprolol (14) DVT prophylaxis: defer on chemical means at this time due to #1 (15) Hypomagnesemia: replaced with 3 grams mag sulfate today repeat level now normal 2nd to etoh use?? (16) Dilated bile duct: CBD is 9mm on CT abd/pelvis etiology? still has gall bladder will obtain RUQ u/s in am for more information (17) B12 deficiency: level 180s start B12 supplement - 1000mcg daily Plan I would like to thank Dr Sanjeev Crenshaw and the hospitalist team at [facility] for accepting Ms Johnston in transfer for ongoing care. Discharge Plan Discharge Items Patient Disposition: Transfer Acute Care Hospital Reason For Visit: Seizures, Brain Tumor Discharge Diagnosis: 1. Brain tumor/lesion, left frontal lobe convexity 2. Focal seizures - right arm 3. Right arm weakness - 2nd to ?postictal Francesco's paralysis + vasogenic edema/structural lesion 4. Severe iron deficiency 5. Vitamin B12 deficiency 6. Hypomagnesemia 7. Dilated common bile duct - 8-9mm in size on CT & U/S 8. Tobacco use 9. Alcohol use 10. GERD 11. HTN 12. COPD 13. Traumatic hematoma of right forehead/orbit 14. Hyperglycemia - may be 2nd to high-dose steroids; no prior history of T2DM; needs hemoglobin a1c to r/o DM Activity: Per Instructions section Non-emergency contact: Primary Care Provider Call non-emergency contact if: you have any medication questions Follow-up/Referrals: Amarilys Hamilton CRNP [Primary Care Provider] - Diet: Carb Consistent or DM2 Addtl Attending Provider Instructions: Further instructions to follow after your hospitalization at [facility]. Pending Studies at Discharge: No Stand-Alone Forms: My [facility] Skilled Items Patient informed of condition?: Yes DNR: No Discharge Level of Care: Other Communicable Disease: No Discharge Prognosis: Stable Lines: Peripheral IV Urinary Catheter: No Medications and DC Order Prescriptions: New cyanocobalamin (vitamin B-12) 500 mcg Tablet 1,000 mcg PO QAM 30 Days Qty: 60 0RF levetiracetam [Keppra] 250 mg Tablet 750 mg PO BID 30 Days Qty: 180 0RF dexamethasone sodium phosphate 4 mg/mL solution 4 mg IV Q8H Qty: 25 0RF Continued atorvastatin 80 mg tablet 80 mg PO DAILY mirtazapine 30 mg tablet 30 mg PO HS hydroxyzine HCl 25 mg tablet 25 mg PO TID PRN (Reason: Anxiety) metoprolol succinate 25 mg tablet extended release 24 hr 12.5 mg PO DAILY loratadine 10 mg Tablet 10 mg PO DAILY Spiriva Respimat 2.5 mcg/actuation mist 2 puff INHALATION DAILY omeprazole 40 mg capsule,delayed release(DR/EC) 40 mg PO DAILY lisinopril 5 mg tablet 5 mg PO DAILY ProAir RespiClick 90 mcg/actuation aerosol powdr breath activated 2 inh INHALATION Q6 PRN (Reason: Shortness Of Breath Or Wheezing) albuterol sulfate 2.5 mg /3 mL (0.083 %) solution for nebulization 2.5 mg continuous nebulization .EVERY 4-6 PRN (Reason: Shortness Of Breath Or Wheezing) cholecalciferol (vitamin D3) [Vitamin D3] 50 mcg (2,000 unit) tablet 50 mcg PO DAILY Discontinued celecoxib 200 mg capsule 200 mg PO BID PRN (Reason: Pain) methocarbamol 750 mg tablet 750 mg PO BID PRN (Reason: Muscle Spasm) Discharge Orders: Discharge Order (Routine); Ordered 06/03/23 Ordered By: Paolo Angela Admission Data Admit Date/Time: 06/02/23 00:22 Attending Provider: Paolo Angela Admit Provider: Miguel Noyola Primary Care Provider: Amarilys Hamilton Other Providers: Miguel Noyola ; Lenin Dalton Coding Diagnoses Brain lesion G93.9 Focal seizure R56.9 Traumatic hematoma of forehead S00.83XA Vasogenic brain edema G93.6 Right arm weakness R29.898 Hypertension I10 Hyperlipidemia E78.5 COPD (chronic obstructive pulmonary disease) J44.9 GERD (gastroesophageal reflux disease) K21.9 Tobacco use disorder F17.200 Alcohol use disorder F10.90 Iron deficiency anemia D50.9 Tachycardia R00.0 DVT prophylaxis Z29.9 Hypomagnesemia E83.42 Dilated bile duct K83.8 B12 deficiency E53.8
== END 2023-06-04 02:10 | disposition short-term general hospital (02) ==
LOC: ED 20:33 → INTOOBSV 06-02 00:22 → SUATTDRO 06-02 00:22 → 4W 06-02 00:22

== ENCOUNTER 2023-09-09 18:39 | Inpatient (IN) ==
[2023-09-09 21:21] LABS: BUN Creatinine Ratio 14.2 (10-20); Calcium 7.8 mg/dl (8.6-10.3); Creatinine Clr Calc Pharmacy 49.9 ml/min; Est GFR (African American) 59.9 ml/min; Est GFR (Non-African American) 51.7 ml/min; Potassium 3.1 mmol/L (3.5-5.1)
[2023-09-09 21:23] LABS: Magnesium 0.6 mg/dl (1.7-2.4)
[2023-09-09 21:28] LABS: Troponin I High Sensitivity 4.3 pg/ml (0-14)
[2023-09-09 21:39] LABS: Albumin Globulin Ratio 1.6 (0.9-2); Albumin Level 3.9 gm/dl (3.4-5.0); Bilirubin,Total 0.3 mg/dl (0.2-1.0); Globulin 2.5 gm/dl (2.5-4.0); Total Protein 6.4 gm/dl (6.0-8.3)
[2023-09-09 21:42] LABS: Basophils # (auto) 0.02 K/uL (0.00-0.20); Basophils % (auto) 0.3 %; Eosinophils # (auto) 0.07 K/uL (0.00-0.50); Eosinophils % (auto) 1.1 %; Hematocrit (blood only) 30.6 % (37.0-47.0); Hemoglobin 9.9 g/dl (12.0-16.0); Immature Granulocytes # (auto) 0.03 K/uL (0.01-0.20); Immature Granulocytes % (auto) 0.5 %; Lymphocytes # (auto) 1.51 K/uL (1.20-3.40); Lymphocytes % (auto) 23.8 %; Mean Corpuscular Hemoglobin 25.4 pg (25.0-34.0); Mean Corpuscular Hgb Conc 32.4 g/dL (32.0-36.0); Mean Corpuscular Volume 78.5 fL (80.0-100.0); Mean Platelet Volume 9.3 fL (9.4-12.4); Monocytes % (auto) 7.9 %; Neutrophils # (auto) 4.22 K/uL (1.40-6.50); Neutrophils % (auto) 66.4 %; Platelet Count 310 K/uL (130-400); RDW Coefficient of Variation 27.3 % (11.5-14.5); RDW Standard Deviation 72.2 fL (36.4-46.3); White Blood Count 6.35 K/ul (4.8-10.8)
[2023-09-09] MEDS: CALCIUM GLUCONATE 1,000 MG/60 ML BAG IV STA (21:47)
--- NOTE | 2023-09-09 21:48 | CT Scan Report ---
Exam(s): CT HEAD Without Contrast EXAM: CT Head Without Intravenous Contrast CLINICAL HISTORY: Reason for exam: seizure like activity. TECHNIQUE: Axial computed tomography images of the head/brain without intravenous contrast. CTDI is 37 mGy and DLP is 624.41 mGy-cm. Automated exposure control was utilized for the study. A dose lowering technique was utilized adhering to the principles of ALARA. COMPARISON: MRI brain 06/06/2023. CT head 06/01/2023. FINDINGS: Brain: There is hypodensity in the left lobe which may represent volume loss/gliosis related to tumor. Residual/recurrent tumor not excluded. Global parenchymal volume loss with chronic microvascular ischemic changes. No hemorrhage. Ventricles: No ventriculomegaly. Bones/joints: Postsurgical change related to prior left frontoparietal craniotomy for tumor resection. No acute fracture. Soft tissues: Unremarkable. Sinuses: Unremarkable as visualized. Mastoid air cells: Unremarkable as visualized. No mastoid effusion. IMPRESSION: 1. No intracranial hemorrhage or other acute intracranial abnormality identified. 2. Postsurgical change related to prior left frontal tumor resection. Consider evaluation with MRI if there is concern for residual/recurrent tumor. 3. Global parenchymal volume loss with chronic microvascular ischemic changes. Electronically signed by: Damion Stewart MD 09/09/23 21:47 PM
[2023-09-09] MEDS: MAGNESIUM SULFATE / D5W 1 GM/100 ML BAG IV SCH (22:16)
[2023-09-09] MEDS: POTASSIUM CHLORIDE / WTR 10 MEQ/100 ML PLCT IV SCH (22:16)
--- NOTE | 2023-09-09 22:16 | Emergency Department Note ---
Impression & Plan Muscle spasm, Hypomagnesemia, Acute hypokalemia, Hypocalcemia ED Provider Note HISTORY OF PRESENT ILLNESS: Patient is a 63-year-old female presenting with right arm twitching. Patient reports that earlier today she felt like her right arm was twitching uncontrollably. She states that she felt like she could not move it independently. Remembers the entirety of the episode. Reports her arm is still twitching at this time. She has a history of a brain tumor is currently on chemotherapy. Her last round of chemo was 09/05/2023. She does have a previous history of seizures in May and is on Keppra. Focal seizures is not her typical seizure. She was given 1 mg of Ativan prehospital with EMS. Patient denies any chest pain or shortness of breath. Denies any recent head injuries or chiropractic manipulation of her neck. Denies any changes in medication. Denies any nausea or vomiting. Denies any recent fevers. ROS: as above PHYSICAL EXAM: Constitutional: Patient appears in no acute distress. HENT: Head: Normocephalic and atraumatic. Eyes: EOMI, PERRL Mouth/Throat: Mucous membranes moist. Neck: Trachea midline. Neck supple. Cardiovascular: RRR, No murmurs, rubs or gallops. Intact distal pulses. Pulmonary/Chest: No respiratory distress. Breath sounds clear and equal bilaterally. No wheezes or rales. Abdominal: Abdomen soft, no tenderness, rebound or guarding. Musculoskeletal: No edema, tenderness or deformity noted. Skin: Warm and dry. No rash, erythema, pallor or cyanosis Psychiatric: Appropriate mood and affect for situation. Neurological: Alert and keenly responsive. CN II-XII grossly intact, moving all extremities equally and fully. Patient is having twitching of her right upper extremity MDM: - Vitals signs showed tachycardia - History obtained via patient. Patient presents with right arm spasms. Patient reports that earlier today her right arm started twitching uncontrollably. She states she felt like she could not move it independently. Romberg's the entirety of the episode but was concerned she was having a seizure. Denies any chest pain or shortness of breath. Denies any nausea or vomiting. Denies any fevers. She has a previous history of a brain tumor and is on Keppra for previous seizure in May 2023. - Chronic conditions affecting care: HTN; HLD; COPD - Differential diagnoses include, but are not limited to: Electrolyte abnormality; ACS; CVA; intracranial hemorrhage - Order placed for continuous cardiac monitoring. At this time, monitor showed rate of 95 bpm with normal sinus rhythm, per my interpretation. - External medical records reviewed. EMS run sheet was reviewed. Patient was vitally stable and route. She was given 1 mg of IV Ativan prehospital. - EKG interpreted by myself showed normal sinus rhythm. Rate tachycardic at 108 bpm. QT 344. No acute ischemic changes. - Laboratory workup interpreted by myself showed normal WBC; hypokalemia (K 3.1); hypocalcemia (Ca 7.8); hypomagnesemia (Mg 0.6); normal troponin; normal procalcitonin - CXR negative for pneumonia, per my interpretation. - CT head wo contrast negative for acute intracranial pathology. - Patient symptoms are likely secondary to her electrolyte abnormalities. She was given 2g IV magnesium, 20 mEq IV potassium and 1g IV calcium for electrolyte replacement. - Discussion was had with career development coordinator/teacher about patient's case and need for admission - Hospitalist consulted for admission - Patient admitted to [facility] service for further evaluation and management. I have personally spent 43 minutes of critical care time in the direct management of this patient. This includes bedside care, interpretation of diagnostic studies, and testing, discussion with consultants, patient, and family members, and other required patient management activities. This 43 minutes is in excess of all separately billable procedures. ASSESSMENT AND PLAN: Diagnosis: hypomagnesemia; hypokalemia; hypocalcemia; muscle spasm Plan: admit Past Med/Surg History Medical History (Updated 09/09/23 @ 22:16 by Maribell Doll MD) Brain lesion Frontal headache Alcohol use disorder Tobacco use disorder Anxiety Allergic rhinitis Depression GERD (gastroesophageal reflux disease) Muscle spasm Vitamin D deficiency Osteoarthritis COPD (chronic obstructive pulmonary disease) Hyperlipidemia Hypertension Surgical History (Updated 07/03/23 @ 13:27 by Tracie Sigala RN) H/O craniotomy 06/05/23 - History of surgery For right arm fracture S/P hysterectomy Family History (Updated 07/03/23 @ 13:30 by Tracie Sigala RN) Mother , age 69 of liver cancer Liver cancer Father , in his early 70s Myocardial infarction Temporary pacemaker Brother Myocardial infarction Sister Stroke Hypertension Daughter No problems noted. Social History (Updated 07/03/23 @ 13:32 by Tracie Sigala RN) Smoking Status: Never smoker Tobacco Type: Cigarettes Age Started Using Tobacco: 16; packs per day: 0.25; Cigarettes Per Day: 1/2 pack to 1 pack for the past 40-50 years; Second Hand Exposure: No; Do You Dip or Chew Tobacco: No; Hx Alcohol Use: Yes Alcohol type: beer and hard liquor Alcohol Intake Frequency: 2-4 x/Month Hx Substance Use: No Preferred Language: Ukrainian Communication Ability: Effective Visual Impairment: No Limitations Hearing Ability: Normal Whistle Punk Required: No Beliefs That Will Affect Care: None marital status: / Current Living Situation: Alone current occupational status: retired 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 How many Children do You have: 1 Feels Safe at Home: Yes Diet: regular caffeine: Yes (1 cup/day) during the past year weight has: remained stable Assistive Devices: None Allergies Allergies Allergy/AdvReac Type Severity Reaction Status Date / Time No Known Allergies Allergy Unverified 07/30/23 11:17 Home Meds Home Medications Medication Instructions Recorded Confirmed albuterol sulfate 2.5 mg/3 mL 2.5 mg continuous nebulization 06/02/23 09/09/23 (0.083 %) solution for nebulization .EVERY 4-6 PRN Shortness Of Breath Or Wheezing albuterol sulfate 90 mcg/actuation 2 inh inhalation Q6 PRN Shortness 06/02/23 09/09/23 breath activated powder inhaler Of Breath Or Wheezing (ProAir RespiClick) atorvastatin 80 mg tablet 80 mg PO DAILY 06/02/23 09/09/23 celecoxib 200 mg capsule 200 mg PO BID PRN Pain 06/02/23 09/09/23 cholecalciferol (vitamin D3) 50 50 mcg PO DAILY 06/02/23 09/09/23 mcg (2,000 unit) tablet (Vitamin D3) hydroxyzine HCl 25 mg tablet 25 mg PO TID PRN Anxiety 06/02/23 09/09/23 lisinopril 5 mg tablet 5 mg PO DAILY 06/02/23 09/09/23 loratadine 10 mg tablet 10 mg PO DAILY 06/02/23 09/09/23 methocarbamol 750 mg tablet 750 mg PO BID PRN Muscle Spasm 06/02/23 09/09/23 metoprolol succinate 25 mg 12.5 mg PO DAILY 06/02/23 09/09/23 tablet,extended release 24 hr mirtazapine 30 mg tablet 30 mg PO HS 06/02/23 09/09/23 omeprazole 40 mg capsule,delayed 40 mg PO DAILY 06/02/23 09/09/23 release tiotropium bromide 2.5 2 puff inhalation DAILY 06/02/23 09/09/23 mcg/actuation mist for inhalation (Spiriva Respimat) docusate sodium 100 mg capsule 100 mg PO QID PRN contipation 09/09/23 09/09/23 folic acid 1 mg tablet 1 mg PO QAM 09/09/23 09/09/23 levetiracetam 250 mg tablet 500 mg PO BID 09/09/23 09/09/23 Previous Rx's Medication Instructions Recorded memantine 10 mg tablet (Namenda) 10 mg PO BID radiation to brain 08/06/23 #60 tabs Results & Data (ED) Vital Signs Vital Signs - 24 hr 09/09/23 18:32 09/09/23 18:44 09/09/23 18:46 Temperature 36.8 C Temperature Source Oral Pulse Rate 114 H 108 H Pulse Rate [Apical] Pulse Rhythm [Apical] Pulse Strength [Apical] Respiratory Rate 23 Respiratory Effort / Characteristics Non-Labored Respiratory Depth Normal Respiratory Pattern Blood Pressure 192/159 H Blood Pressure [Left Arm] Blood Pressure Mean 170 Blood Pressure Mean [Left Arm] Blood Pressure Position [Left Arm] Pulse Oximetry 98 97 Oxygen Delivery Method Room Air Room Air Oxygen Flow Rate 0 Sepsis Recent Fever Within 48 Hours No Sepsis New/Unexplained Change in Mental Status No Sepsis Action Taken by Nursing No Action Required 09/09/23 19:30 09/09/23 21:00 09/09/23 22:34 Temperature Temperature Source Pulse Rate 94 H Pulse Rate [Apical] 103 H 95 H Pulse Rhythm [Apical] Regular Regular Pulse Strength [Apical] Normal Normal Respiratory Rate 16 16 Respiratory Effort / Characteristics Non-Labored Spontaneous Non-Labored Spontaneous Respiratory Depth Normal Normal Respiratory Pattern Regular Regular Blood Pressure Blood Pressure [Left Arm] 128/80 105/80 Blood Pressure Mean Blood Pressure Mean [Left Arm] 96 88 Blood Pressure Position [Left Arm] Lying Lying Pulse Oximetry 97 95 Oxygen Delivery Method Room Air Room Air Oxygen Flow Rate Sepsis Recent Fever Within 48 Hours Sepsis New/Unexplained Change in Mental Status Sepsis Action Taken by Nursing Laboratory Data 09/09/23 18:45 09/09/23 18:45 Lab Results 09/09/23 Range/Units 18:45 WBC 6.35 (4.8-10.8) K/ul RBC 3.90 L (4.20-5.40) M/uL Hgb 9.9 L (12.0-16.0) g/dl Hct 30.6 L (37.0-47.0) % MCV 78.5 L (80.0-100.0) fL MCH 25.4 (25.0-34.0) pg MCHC 32.4 (32.0-36.0) g/dL RDW Std Deviation 72.2 H (36.4-46.3) fL RDW Coeff of Micheal 27.3 H (11.5-14.5) % Plt Count 310 (130-400) K/uL MPV 9.3 L (9.4-12.4) fL Immature Gran % (Auto) 0.5 % Neut % (Auto) 66.4 % Lymph % (Auto) 23.8 % Faulkner % (Auto) 7.9 % Eos % (Auto) 1.1 % Baso % (Auto) 0.3 % Neut # (Auto) 4.22 (1.40-6.50) K/uL Lymph # (Auto) 1.51 (1.20-3.40) K/uL Faulkner # (Auto) 0.50 (0.11-0.59) K/uL Eos # (Auto) 0.07 (0.00-0.50) K/uL Baso # (Auto) 0.02 (0.00-0.20) K/uL Immature Gran # (Auto) 0.03 (0.01-0.20) K/uL Ovalocytes 1+ Sodium 136 (136-145) mmol/L Potassium 3.1 L (3.5-5.1) mmol/L Chloride 99 (98-107) mmol/L Carbon Dioxide 25 (21-32) mmol/L Anion Gap 12 H (3-11) BUN 16 (6-23) mg/dl Creatinine 1.13 (0.6-1.2) mg/dl Est Cr Clr Drug Dosing 49.9 ml/min Est GFR ( Amer) 59.9 ml/min Est GFR (Non-Af Amer) 51.7 ml/min BUN/Creatinine Ratio 14.2 (10-20) Glucose 112 H (70-99(Fasting)) mg/dl Calcium 7.8 L (8.6-10.3) mg/dl Magnesium 0.6 L* (1.7-2.4) mg/dl Total Bilirubin 0.3 (0.2-1.0) mg/dl AST 36 (13-39) U/L ALT 36 (7-52) U/L Alkaline Phosphatase 55 (34-104) U/L Troponin I High Sens 4.3 (0-14) pg/ml Total Protein 6.4 (6.0-8.3) gm/dl Albumin 3.9 (3.4-5.0) gm/dl Globulin 2.5 (2.5-4.0) gm/dl Albumin/Globulin Ratio 1.6 (0.9-2) Procalcitonin < 0.05 (0-0.5) ng/ml Administered Medications Magnesium Sulfate/Dextrose (Magnesium Sulfate / D5w) 1 gm in 100 mls @ 100 mls/hr IV Q1H GIBSON Stop: 09/09/23 23:22 Last Admin: 09/09/23 22:16 Dose: 100 mls/hr Documented By: IDD Potassium Chloride (K August / Wtr) 10 meq in 100 mls @ 100 mls/hr IV Q1H GIBSON Stop: 09/09/23 23:29 Last Admin: 09/09/23 22:16 Dose: 100 mls/hr Documented By: IDD Discontinued Medications Calcium Gluconate () 1,000 mg in 60 mls @ 240 mls/hr IV NOW STA Stop: 09/09/23 21:38 Last Infusion: 09/09/23 22:02 Dose: Infused Documented By: Admin: 09/09/23 21:47 Dose: 240 mls/hr Documented By: IDD Imaging Data Radiologist's Impression: Head CT 09/09/23 20:49 Exam(s): CT HEAD Without Contrast EXAM: CT Head Without Intravenous Contrast CLINICAL HISTORY: Reason for exam: seizure like activity. TECHNIQUE: Axial computed tomography images of the head/brain without intravenous contrast. CTDI is 37 mGy and DLP is 624.41 mGy-cm. Automated exposure control was utilized for the study. A dose lowering technique was utilized adhering to the principles of ALARA. COMPARISON: MRI brain 06/06/2023. CT head 06/01/2023. FINDINGS: Brain: There is hypodensity in the left lobe which may represent volume loss/gliosis related to tumor. Residual/recurrent tumor not excluded. Global parenchymal volume loss with chronic microvascular ischemic changes. No hemorrhage. Ventricles: No ventriculomegaly. Bones/joints: Postsurgical change related to prior left frontoparietal craniotomy for tumor resection. No acute fracture. Soft tissues: Unremarkable. Sinuses: Unremarkable as visualized. Mastoid air cells: Unremarkable as visualized. No mastoid effusion. IMPRESSION: 1. No intracranial hemorrhage or other acute intracranial abnormality identified. 2. Postsurgical change related to prior left frontal tumor resection. Consider evaluation with MRI if there is concern for residual/recurrent tumor. 3. Global parenchymal volume loss with chronic microvascular ischemic changes. Electronically signed by: Damion Stewart MD 09/09/23 21:47 PM Discharge Plan Visit Data Chief Complaint: Seizure Stated Complaint: SEIZURE ED Provider: Maribell Doll Discharge Problem: Muscle spasm, Hypomagnesemia, Acute hypokalemia, Hypocalcemia Forms Stand Alone Forms: [facility] Prescriptions Prescriptions: No Action memantine [Namenda] 10 mg tablet 10 mg PO BID Qty: 60 4RF atorvastatin 80 mg tablet 80 mg PO DAILY mirtazapine 30 mg tablet 30 mg PO HS hydroxyzine HCl 25 mg tablet 25 mg PO TID PRN (Reason: Anxiety) metoprolol succinate 25 mg tablet extended release 24 hr 12.5 mg PO DAILY loratadine 10 mg Tablet 10 mg PO DAILY Spiriva Respimat 2.5 mcg/actuation mist 2 puff INHALATION DAILY omeprazole 40 mg capsule,delayed release(DR/EC) 40 mg PO DAILY celecoxib 200 mg capsule 200 mg PO BID PRN (Reason: Pain) methocarbamol 750 mg tablet 750 mg PO BID PRN (Reason: Muscle Spasm) lisinopril 5 mg tablet 5 mg PO DAILY ProAir RespiClick 90 mcg/actuation aerosol powdr breath activated 2 inh INHALATION Q6 PRN (Reason: Shortness Of Breath Or Wheezing) albuterol sulfate 2.5 mg /3 mL (0.083 %) solution for nebulization 2.5 mg continuous nebulization .EVERY 4-6 PRN (Reason: Shortness Of Breath Or Wheezing) cholecalciferol (vitamin D3) [Vitamin D3] 50 mcg (2,000 unit) tablet 50 mcg PO DAILY docusate sodium 100 mg capsule 100 mg PO QID PRN (Reason: contipation) folic acid 1 mg tablet 1 mg PO QAM levetiracetam 250 mg tablet 500 mg PO BID Referrals Referrals: Amarilys Hamilton CRNP [Primary Care Provider] -
[2023-09-09 22:43] LABS: Ovalocytes 1+
--- NOTE | 2023-09-09 23:31 | History & Physical Report ---
Date of Service September 09, 2023 Assessment & Plan (1) Focal motor seizure: (2) Right arm weakness: (3) Hypomagnesemia: (4) Acute hypokalemia: (5) Hypertension: (6) Hyperlipidemia: (7) GERD (gastroesophageal reflux disease): (8) COPD (chronic obstructive pulmonary disease): (9) Depression: (10) Anxiety: (11) Brain metastasis: (12) H/O craniotomy: Plan 63 yo female PMHx lung adenocarcinoma with mets to the brain s/p craniotomy and resection s/p radiation and chemo,hypertension, hyperlipidemia, COPD, GERD, vitamin D deficiency, muscle spasm, allergic rhinitis, tobacco use and alcohol use disorders and chronic pain syndrome. Admitted for R arm twitching and weakn ess that began today. #Focal Seizure vs spasm -CT unremarkable besides post-surgical changes -MRI w/wo contrast -Continue Keppra 500mg BID -Neurology consult appreciate recs #Hypomagnesemia -0.6 on admission -Replete as indicated -20mEq IV, 40mEq PO -Goal >2 #Hypokalemia -3.1 on admission -Replete as indicated -4 grams IV ordered -Goal >4 #HTN -lisinopril 5mg daily -metoprolol succinate 12.5mg daily #HLD -atorvastatin 80mg daily #GERD -omeprazole 40mg daily #Anxiety/Depression -mirtazapine 30mg qHS -hydroxyzine 25mg TID PRN #COPD -Spiriva 2 puffs daily -albuterol 2puffs q6h PRN #Brain mets -lung adenocarcinoma primary -s/p resection -s/p chemo and radiation -memantine 10mg BID FENGI: Heart healthy Code status: DNR/DNI DVT prophylaxis: lovenox Isolation: none Disposition: med/surg w/tele History of Present Illness Primary Care Provider: LUCHO Johnson 63 yo female PMHx lung adenocarcinoma with mets to the brain s/p craniotomy and resection s/p radiation and chemo,hypertension, hyperlipidemia, COPD, GERD, vitamin D deficiency, muscle spasm, allergic rhinitis, tobacco use and alcohol use disorders and chronic pain syndrome. Admitted for R arm twitching and weakness that began today. She has a history of seizures but focal seizures are not her typical presentation. She has full recollection of the day's events, no LOC, no loss of bowel/bladder function. Denies DAMON, changes in vision, CP, SOB, N/V/D. She states that she has taken all of her medications including Keppra as prescribed. She is a current cigarette smoker (few cigarettes per day). She has not had any alcohol. Allergies Allergy/AdvReac Type Severity Reaction Status Date / Time No Known Allergies Allergy Unverified 07/30/23 11:17 Home Medications Medication Instructions Recorded Confirmed Type albuterol sulfate 2.5 mg/3 mL 2.5 mg continuous nebulization 06/02/23 09/09/23 History (0.083 %) solution for nebulization .EVERY 4-6 PRN Shortness Of Breath Or Wheezing albuterol sulfate 90 mcg/actuation 2 inh inhalation Q6 PRN Shortness 06/02/23 09/09/23 History breath activated powder inhaler Of Breath Or Wheezing (ProAir RespiClick) atorvastatin 80 mg tablet 80 mg PO DAILY 06/02/23 09/09/23 History celecoxib 200 mg capsule 200 mg PO BID PRN Pain 06/02/23 09/09/23 History cholecalciferol (vitamin D3) 50 50 mcg PO DAILY 06/02/23 09/09/23 History mcg (2,000 unit) tablet (Vitamin D3) hydroxyzine HCl 25 mg tablet 25 mg PO TID PRN Anxiety 06/02/23 09/09/23 History lisinopril 5 mg tablet 5 mg PO DAILY 06/02/23 09/09/23 History loratadine 10 mg tablet 10 mg PO DAILY 06/02/23 09/09/23 History methocarbamol 750 mg tablet 750 mg PO BID PRN Muscle Spasm 06/02/23 09/09/23 History metoprolol succinate 25 mg 12.5 mg PO DAILY 06/02/23 09/09/23 History tablet,extended release 24 hr mirtazapine 30 mg tablet 30 mg PO HS 06/02/23 09/09/23 History omeprazole 40 mg capsule,delayed 40 mg PO DAILY 06/02/23 09/09/23 History release tiotropium bromide 2.5 2 puff inhalation DAILY 06/02/23 09/09/23 History mcg/actuation mist for inhalation (Spiriva Respimat) memantine 10 mg tablet (Namenda) 10 mg PO BID radiation to brain 08/06/23 09/09/23 Rx #60 tabs docusate sodium 100 mg capsule 100 mg PO QID PRN contipation 09/09/23 09/09/23 History folic acid 1 mg tablet 1 mg PO QAM 09/09/23 09/09/23 History levetiracetam 250 mg tablet 500 mg PO BID 09/09/23 09/09/23 History Past Med/Surg History Medical History Brain lesion Frontal headache Alcohol use disorder Tobacco use disorder Anxiety Allergic rhinitis Depression GERD (gastroesophageal reflux disease) Muscle spasm Vitamin D deficiency Osteoarthritis COPD (chronic obstructive pulmonary disease) Hyperlipidemia Hypertension Surgical History H/O craniotomy 06/05/23 - History of surgery For right arm fracture S/P hysterectomy Family History Mother , age 69 of liver cancer Liver cancer Father , in his early 70s Myocardial infarction Temporary pacemaker Brother Myocardial infarction Sister Stroke Hypertension Daughter No problems noted. Social History Smoking Status: Current some day smoker Tobacco Type: Cigarettes Age Started Using Tobacco: 16; packs per day: 0.25; Cigarettes Per Day: 1/2 pack to 1 pack for the past 40-50 years; Second Hand Exposure: No; Do You Dip or Chew Tobacco: No; Hx Alcohol Use: Yes Alcohol type: hard liquor Alcohol Intake Frequency: 2-4 x/Month Hx Substance Use: No Preferred Language: Slovak Communication Ability: Effective Visual Impairment: No Limitations Hearing Ability: Normal General Neurologist Required: No Beliefs That Will Affect Care: None marital status: / Current Living Situation: Alone current occupational status: retired 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 How many Children do You have: 1 Other Information That Helps Us Care for You: No Feels Safe at Home: Yes Safety Concerns: Feels Safe At This Time Diet: regular caffeine: Yes (1 cup/day) during the past year weight has: remained stable Assistive Devices: None Review of Systems Review of Systems: reviewed, per HPI Physical Exam Physical Exam: Constitutional: NAD, chronically ill appearing HEENT: NCAT, no conjunctival injection, PERRL, EOMI CV: regular rhythm, no murmur appreciated, extremities well-perfused, no LE edema Resp: CTABL, no wheezes/rales/rhonchi appreciated, no increased work of breathing GI: soft, nondistended, nontender MSK: no gross deformities appreciated Skin: warm, dry, no rash appreciated Neuro: alert, oriented, RUE weakness to abduction, adduction at shoulder; flexion, extension at elbow; and home care specialist strength. Actively twitching R arm Results & Data Results & Data Vital Signs (Past 12 Hours) Vital Signs Temp Pulse Pulse Resp BP BP Pulse Ox 09/09/23 22:34 94 H 09/09/23 21:00 95 H 16 105/80 95 09/09/23 19:30 103 H 16 128/80 97 09/09/23 18:46 36.8 C 108 H 23 192/159 H 97 09/09/23 18:44 114 H 09/09/23 18:32 98 O2 Del Method O2 Flow Rate 09/09/23 22:34 09/09/23 21:00 Room Air 09/09/23 19:30 Room Air 09/09/23 18:46 Room Air 09/09/23 18:44 09/09/23 18:32 Room Air 0 Supervising Physician Co-Signing Physician Notes Attending addendum: I have physically seen this patient, have supervised the medical residents activities, and agree with the H&P unless as otherwise noted. Assessment and Plan: Focal seizure versus spasm/status post craniotomy and resection of metastatic lung adeno CA to brain/status post chemotherapy and radiation therapy- Admit to monitored bed CT head without contrast shows postsurgical changes, but otherwise no acute problems MRI brain with and without contrast Continue Keppra 5 mg p.o. twice daily Consult neurology Hypomagnesemia, hypokalemia- Magnesium 0.6 and potassium 3.1 on admission Replace both orally and IV, and recheck laboratories in a.m. Hypertension- Continue metoprolol succinate and lisinopril with hold parameters
[2023-09-10] MEDS ORDERED: ONDANSETRON INJ 2 MG/ML 2 ML VIAL IV PRN (02:07)
[2023-09-10] MEDS ORDERED: POLYETHYLENE (MIRALAX) 17 GM PACK PO PRN (02:07)
[2023-09-10] MEDS ORDERED: hydrOXYzine HCl 25 MG TAB PO PRN (02:07)
[2023-09-10] MEDS ORDERED: ACETAMINOPHEN 325 MG TAB PO PRN (02:07)
[2023-09-10] MEDS ORDERED: CeleBREX 200 MG CAP PO PRN (02:07)
[2023-09-10] MEDS ORDERED: METHOCARBAMOL 750 MG TABLET PO PRN (02:07)
[2023-09-10] MEDS ORDERED: DOCUSATE SODIUM 100 MG CAP PO PRN (02:07)
[2023-09-10] MEDS ORDERED: ALBUTEROL HFA 8 GM INHALER INH PRN (03:09)
[2023-09-10] MEDS: POTASSIUM CHLORIDE CRTAB 20 MEQ TABCR PO STA ×2 (03:15→09:27)
[2023-09-10] MEDS: GADOBUTROL 65ML VIAL IV ONE (03:58)
[2023-09-10] MEDS: MAGNESIUM SULFATE / D5W 1 GM/100 ML BAG IV SCH ×2 (04:27→09:27)
--- OUTSIDE RECORDS SUMMARY | 2023-09-10 04:52 | External Medical Summary | Summary of Care ---
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 PEMETREXED NOS 10MG [place] CARBOPLATIN INJECTION [place] FOSAPREPITANT INJECTION [place] INJ PEMBROLIZUMAB Bradley Amaya MD [address] [place] [address] Anc Hem/Onc Scenery [address] [address] Referral ID Status Reason Start Date Expiration Date V isits Requested Visits Authorized [id number] Authorized 07/23/2023 07/23/2024 [id number] Encounter Details Date Type Department Care Team (Latest Contact Info) Description 09/05/2023 8:30 AM EST Hem/Onc Treatment Hematology/Oncolog y Treatment, [place] [address] [place] [address] Mariana, Chair 1 Hem Onc Scenery [address] [place] [address] [place] [address] Metastasis to brain (HCC)*; Metastasis to mediastinal lymph node (HCC); Malignant neoplasm of left lung, unspecified part of lung (HCC); Encounter for antineoplastic chemotherapy Allergies No known active allergiesdocumented as of this encounter (statuses as of 09/05/2023) Medications Medication Sig Dispensed Refills Start Date End Date Status fenofibrate (LOFIBRA) 160 MG Tablet Take 1 Tablet by mouth in the morning. 1 10/29/2016 Active omeprazole (PRILOSEC) 40 MG CPDR Take 1 Capsule by mouth in the morning. 0 12/03/2016 Active albuterol (PROAIR HFA) 108 (90 BASE) MCG/ACT inhaler Inhale 2 Puffs by mouth every 6 hours as needed. 0 Active albuterol sulfate (PROVENTIL) (2.5 MG/3ML) 0.083% nebulizer solution Inhale 1 Vial via nebulizer every 6 hours as needed for Wheezing. 0 Active Atorvastatin Calcium 80 MG Oral Tablet (Lipitor) Take 1 Tablet by mouth at bedtime. 0 05/22/2023 Active Cholecalciferol 50 MCG (2000 UT) Oral Tablet Take 50 mcg by mouth in the morning. 0 06/02/2023 Active Cyanocobalamin 500 MCG Oral Tablet Take 2 Tablets by mouth in the morning. 0 06/03/2023 Active hydrOXYzine HCl 25 MG Oral Tablet Take 1 Tablet by mouth in the morning and 1 Tablet at noon and 1 Tablet in the evening. 0 06/02/2023 Active Loratadine 10 MG Oral Tablet (Claritin) Take 1 Tablet by mouth in the morning. 0 06/02/2023 Active Metoprolol Succinate ER 25 MG Oral Tablet Extended Release 24 Hour (toPROL XL) Take 0.5 Tablets by mouth in the morning. 0 06/02/2023 Active Mirtazapine 30 MG Oral Tablet (Remeron) Take 1 Tablet by mouth at bedtime. 0 01/15/2023 Active Tiotropium Martell Monohydrate 2.5 MCG/ACT Inhalation Aerosol Solution (Spiriva Respimat) Inhale 2 Puffs by mouth every morning. 0 05/14/2023 Active Lisinopril 5 MG Oral Tablet (Prinivil) Take 1 Tablet by mouth daily in the morning. 30 Tablet 1 06/10/2023 Active levETIRAcetam 250 MG Oral Tablet (Keppra) Take 2 Tablets by mouth in the morning and 2 Tablets before bedtime. 120 Tablet 0 06/10/2023 Active Ondansetron HCl 8 MG Oral TabletIndications:Ma lignant neoplasm of left lung, unspecified part of lung (HCC),Metastasis to mediastinal lymph node (HCC),Metastasis to brain (HCC) Take 1 Tablet by mouth every 8 hours as needed for Nausea. 30 Tablet 3 07/18/2023 Active Prochlorperazine Maleate 10 MG Oral Tablet (Compazine)Indicatio ns:Malignant neoplasm of left lung, unspecified part of lung (HCC),Metastasis to mediastinal lymph node (HCC),Metastasis to brain (HCC) Take 1 Tablet by mouth every 6 hours as needed for Nausea. 60 Tablet 2 07/18/2023 Active dexAMETHasone 4 MG Oral TabletIndications:Ma lignant neoplasm of left lung, unspecified part of lung (HCC),Metastasis to mediastinal lymph node (HCC),Metastasis to brain (HCC) One tablet twice a day for 3 days only, starting one day before the chemotherapy. 36 Tablet 1 07/18/2023 Active Folic Acid 1 MG Oral TabletIndications:Ma lignant neoplasm of left lung, unspecified part of lung (HCC),Metastasis to mediastinal lymph node (HCC),Metastasis to brain (HCC) Take 1 Tablet by mouth in the morning. 30 Tablet 5 07/18/2023 Active LORazepam 0.5 MG Oral Tablet (Ativan)Indications: Malignant neoplasm of left lung (HCC),Metastasis to mediastinal lymph node (HCC),Metastasis to brain (HCC) Take 1 Tablet by mouth 2 times a day as needed for Anxiety or Sleep. 30 Tablet 0 07/19/2023 Active documented as of this encounter (statuses as of 09/05/2023) Active Problems Problem Noted Date Diagnosed Date Other iron deficiency anemias 07/19/2023 Encounter for antineoplastic chemotherapy 2022 Malignant neoplasm of left lung 07/18/2023 Metastasis to mediastinal lymph node 07/18/2023 Metastasis to brain 07/18/2023 Focal seizures 06/04/2023 Intracranial mass 06/04/2023 RUE weakness 06/04/2023 Steroid-induced hyperglycemia 06/04/2023 Alcohol use disorder 06/04/2023 Anxiety 06/04/2023 B12 deficiency 06/04/2023 Brain lesion 06/04/2023 Depression 06/04/2023 Dilated bile duct 06/04/2023 Frontal headache 06/04/2023 Hypertension 06/04/2023 Osteoarthritis 06/04/2023 Seizure-like activity 06/04/2023 Vasogenic brain edema 06/04/2023 Traumatic hematoma of forehead 06/04/2023 Monoparesis of upper extremity 01/16/2023 Atherosclerosis of aorta 12/11/2018 COPD, moderate 12/06/2016 Mixed dyslipidemia 12/06/2016 Hyperlipidemia 05/14/2014 Tobacco use disorder Brachial neuritis documented as of this encounter (statuses as of 09/05/2023) Immunizations Name Administration Dates Next Due TD - Tetanus/Diptheria (ADULT) 08/05/2000 documented as of this encounter Social History Tobacco Use Types Packs/Day Years Used Date Smoking Tobacco: Every Day Cigarettes 2 34 Smokeless Tobacco: Never Comments:1pkg per day, emperatriz robison on stress started age 14 Alcohol Use Standard Drinks/Week Comments Yes 0 (1 standard drink = 0.6 oz pur e alcohol) 12 beers a week Sex and Gender Information Value Date Recorded Sex Assigned at Not on file Gender Identity Not on file Sexual Orientation Not on file Job Start Date Occupation Industry Not on file Not on file Not on file documented as of this encounter Functional Status Functional Status Response Date of Assess ment Are you deaf or do you have serious difficulty hearing? No 06/04/2023 Are you blind or do you have serious difficulty seeing, even when wearing glasses? 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 (5 years old or older) No 06/04/2023 Do you have difficulty dress ing or bathing? (5 years old or older) No 06/04/2023 Because of a physical, menta l, or emotional condition, do you have difficulty doing errands alone such as visiting a doctor s office or shopping? (15 years old or older) No 06/04/2023 Cognitive Status Response Date of Assessm ent Because of a physical, menta l, or emotional condition, do you have serious difficulty concentrating, remembering, or making decisions? (5 years old or older) No 06/04/2023 documented as of this encounter Nursing Notes * Paulie Quesada RN - 09/05/2023 12:41 PM EST Pt infusions completed without issue. Pt denies any reportable symptoms at this time. Pt IV removedwtithout issue, catheter tip intact. Pt ambulated from treatment room in stable condition. Goals: Patient will remain free from injury. Possible barriers to meeting goals: Pt central line. Stability of the patient: Moderately stable - low risk of patient condition declining or worsening Summary regarding today's goals: Met: Pt remained free from harm. * Paulie Quesada RN - 09/05/2023 10:30 AM EST Chair 1. IV inserted into RH. Pt in to see provider prior to infusion- see office visit notes regarding patient status/symptoms. Pt Alimta held today d/t decreased kidney function per provider. Fluids infusing per orders. Pt denies any symptoms at this time. Functional status at today's visit: Ambulatory and capable of all selfcare but unable to carry out any work activities. Up and about more than 50% of waking hours The drug name, dose, infusion volume, rate and route of administration, expiration date and time, appearance and physical integrity of the drug and rate set on the pump and sequencing of drug administration (as applicable) were verified by me and second sign-in RN. Patient was assessed for symptoms or adverse side effects during treatment. Safety and Risk for Injury Patient will remain free from injury. Ensure appropriate safety devices are available. Provide and maintain safe environment. documented in this encounter Plan of Treatment Upcoming Encounters Date Type Department Care Team (Late st Contact Info) Description 09/26/2023 8:40 AM EST Laboratory Laboratory [facility] [address] [place] [id number] [place] [address] [place] [address] 09/26/2023 9:30 AM EST Office Visit Hematology/Oncology [facility] [address] [address] Palmira Cooper CRNP [address] [facility] [place] [address] 09/26/2023 10:00 AM EST [facility] [address] [place], Chair 4 Hem Onc [address] [place] [address] 10/17/2023 8:10 AM EDT Laboratory Laboratory [facility] [address] [place] [phone] Mar[place], Lab [address] [facility] [place] [address] 10/17/2023 9:15 AM EDT Office Visit Hematology/Oncology [facility] [place] [address] [facility] [place] [address] Bradley Amaya MD [address] [facility] [place] [address] 10/17/2023 9:45 AM EDT Hem/Onc Treatment Hematology/Oncology [facility] [address] [facility] [address] 01/09/2024 9:10 AM EDT Office Visit Neurology, [place] [address] [place] [phone] Alyssa Reich, [address] [place] [address] Health Maintenance Due Date Last Done Comments DISCUSS TOBACCO CESSATION (REFER TO SMARTSET #[id number]) 1960 COVID-19 Vaccine (#1) 01/23/1965 Pneumococcal Vaccine: Pediatrics (0 to 5 Years) and At-Risk Patients (6 to 64 Years) (1 - PCV) 01/23/1966 Depression Screening 1972 HIV Screening 01/23/1975 Albumin/Creatinine Ratio 01/23/1978 Alpha-1 Antitrypsin 01/23/1978 Zoster Vaccines (1 of 2) 01/23/1979 DTaP,Tdap,and Td Vaccines (1 - Tdap) 08/06/2000 08/05/2000 Colonoscopy 01/23/2005 Sigmoidoscopy 01/23/2005 *COPD SEVERITY VERIFIED BY PFT 12/08/2016 Fecal Occult Blood Test 05/12/2019 05/12/2018 Mammogram 03/17/2022 03/17/2021, 05/06, 11/29/2016 Influenza Vaccine (FLU shot) (#1) 2023 05/21/2014, 06/12/2013 *CXR OR CT FOR COPD EVER 06/19/2023 O2 ASSESSMENT COMPLETED IN PAST YEAR FOR COPD 06/05/2024 06/05/2023 GFR 09/05/2024 09/05/2023, 08/05, 07/18/2023, Additional history exists Cologuard 11/20/2024 11/20/2021, 03/05, 06/24/2020 Colorectal Cancer Screening 11/20/2024 Pap Smear Discontinued 11/04/2007 (Done elsewhere) GARDASIL-HPV IMMUNIZATION SERIES Aged Out No longer eligible based on patient's age to complete this topic Hepatitis B Aged Out No longer eligi ble based on patient's age to complete this topic MENINGOCOCCAL (MENACTRA/MENVEO) Aged Out No longer eligible based on patient's age to complete this topic documented as of this encounter Medical Devices Implanted Type Area Loader [employer] Device Identifier Shelf Expiration Date Model / Serial / Lot Screw 1.5x4mm Sd Un3 - [id number] Implanted:Qty : 20 on 06/05/2023 by Peter Omalley MD at OR [facility] Left: Head ANURADHA : CRANIOMAXILLOFACIAL [id number] / / documented as of this encounter Visit Diagnoses Diagnosis 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 Malignant neoplasm of left lung, unspecified part of lung (HCC) Encounter for antineoplastic chemotherapy documented in this encounter Administered Medications Active Administered Medications - up to 3 most recent administrations Medication Order MAR Action Action Date Dose Rate Site diphenhydrAMINE (Benadryl) inj 50 mg 50 mg, IV Push, ONCE PRN Other, Hypersensitivity Reaction, Starting on Sat09/05/23 at 0924, Until Sat09/06/23 at 0923, For 24 hours EPINEPHrine 1 MG/ML inj 0.3 mg 0.3 mg, Intramuscular, ONCE PRN Other, Hypersensitivity Reaction or Anaphylaxis, Starting on Sat09/05/23 at 0924, Until Sat09/06/23 at 0923, For 24 hours hEParin 100 UNIT/ML Lock Flush inj 500 Units 500 Units (5 mL), IV Lock, PRN Other, IV Flush, Starting on Sat09/05/23 at 0924, Until Sat09/06/23 at 0923, For 24 hours, Do not flush if lock, PICC, or central line not in place; IV infusing or unable to flush. Hydrocortisone Sod Suc (PF) (Solu-Cortef) inj 100 mg 100 mg, IV Push, ONCE PRN Other, Hypersensitivity Reaction, Starting on Sat09/05/23 at 0924, Until Sat09/06/23 at 0923, For 24 hours LORAzepam (Ativan) tab 0.5 mg 0.5 mg, Oral, ONCE PRN Anxiety, Nausea, Starting on Sat09/05/23 at 1030, Until Discontinued NSS infusion Intravenous, at 50 mL/hr, PRN, Starting on Sat09/05/23 at 1030, Until Discontinued, Maintenance line Start Infusion 09/05/2023 10:02 AM EST 50 mL/hr oxygen GAS Inhalation, OXYGEN, First dose on Sat09/05/23 at 1000, Until Discontinued, Device/Managed by: Low Flow Device, Goal SPO2 (%): 91-95, Starting Device: Nasal Cannula, Initial Flow Rate (LPM): 2, Lowest Support: Nasal Cannula: Flow 0-6 LPM. Titrate up/down by 1 LPM., Higher Support: Non-Rebreather (NRB) Mask: Minimum of 10 LPM. Titrate to maintain bag inflation., Titration Interval: Q2 minutes and as needed., Notify Provider: For sudden DECREASE in resting SPO2 to less than 85% and when escalating delivery device., Wean patient off Oxygen when the oxygen saturation is greater than or equal to 93% sodium chloride 0.9 % flush central line 10 mL 10 mL, IV Push, PRN Other, IV Flush, Starting on Sat09/05/23 at 0924, Until Sat09/06/23 at 0923, For 24 hours, Do not flush if lock, PICC, or central line not in place; IV infusing or unable to flush. Inactive Administered Medications - up to 3 most recent administrations Medication Order MAR Action Action Date Dose Rate Site CARBOplatin (Paraplatin) 368 mg in D5W 250 mL infusion 368 mg (rounded from 367.5 mg, Target AUC = 5), IV Piggyback, at 500 mL/hr Administer over 30 Minutes, PROTECT FROM LIGHT Administer 30 min after Alimta complete. (Max Creatinine Clearance at 125 ml/min for calculating AUC dose), ONCE, 1 dose, On Sat09/05/23 at 1130 Start Infusion 09/05/2023 11:08 AM EST 368 mg 500 mL/hr Fosaprepitant Dimeglumine (Emend) 150 mg, ondansetron (Zofran) 16 mg, dexamethasone sodium phosphate 12 mg in NSS 250 mL Infusion 150 mg, IV Piggyback, ONCE, 1 dose, On Sat09/05/23 at 1030, Administer over 30 Minutes, Give 30 minutes prior to chemotherapy. Infuse over 30 minutes. Start Infusion 09/05/2023 10:02 AM EST 150 mg 500 mL/hr NSS infusion FOR HYDRATION Intravenous, at 500 mL/hr Administer over 2 Hours, ONCE, 1 dose, On Sat09/05/23 at 1045 Start Infusion 09/05/2023 9:20 AM EST 1,000 mL 500 mL/hr Pembrolizumab (Keytruda) 200 mg in NSS 100 mL infusion 200 mg, IV Piggyback, ONCE, 1 dose, On Gege 09/05/23 at 1030, Administer over 30 Minutes, Infuse through 0.2 micron filter. Start Infusion 09/05/2023 10:33 AM EST 200 mg 200 mL/hr documented in this encounter Advance Directives Latest Code Status on File Code Status Date Activated Date Inactivated Comments Full Code 06/05/2023 9:49 PM 06/10/2023 7:02 PM This order reflects the patients wishes and were consensually agreed upon. Question Answer Comments Discussion of Advance Directives occurred with: Not Discussed due to patient's condition Code Status History Code Status Date Activated Date Inactivated Comments Full Code 06/04/2023 6:30 PM 06/05/2023 9:49 PM This order reflects the patients wishes and were consensually agreed upon. Question Answer Comments Discussion of Advance Directives occurred with: Not Discussed due to patient's condition Full Code 06/04/2023 5:21 AM 06/04/2023 6:30 PM Thi s order reflects the patients wishes and were consensually agreed upon. Question Answer Comments Discussion of Advance Directives occurred with: Patient Care Teams Gun Barrel Finisher Relationship Specialty Start Date End Date Kenrick Gallo MD [address] [facility] [place] [address] PCP - General Internal Medicine 06/20/23 documented as of this encounter
--- OUTSIDE RECORDS SUMMARY | 2023-09-10 04:52 | External Medical Summary | Summary of Care ---
Author Name Unknown Organization [facility] Address [address] [place] [address] Phone [phone] Care Team Providers Care Specialty Food Products Supervisor Name Role Phone Kenrick Gallo MD Primary Care Provider Reason for Visit * Reason Comments Chemotherapy Chemo/recheck Encounter Details Date Type Department Care Team ([facility] st Contact Info) Description 09/05/2023 8:00 AM EST Office Visit Hematology/Oncology [facility] [address] [facility] [place] [address] Palmira Cooper CRNP [address] [place] [address] Malignant neoplasm of left lung, unspecified part of lung (HCC)*; Metastasis to mediastinal lymph node (HCC); Metastasis to brain (HCC); Encounter for antineoplastic chemotherapy; Dehydration; Drug-induced constipation; Mucositis due to chemotherapy Allergies No known active allergiesdocumented as of this encounter (statuses as of 09/08/2023) Medications Medication Sig Dispensed Refills Start Date [...] mouth at bedtime. 0 01/15/2023 Active Tiotropium [place] Monohydrate 2.5 MCG/ACT Inhalation Aerosol Solution (Spiriva [...] or Sleep. 30 Tablet 0 07/19/2023 Active Sennosides 8.6 MG Oral Tablet (Senokot)Indications :Drug-induced constipation Take 1 Tablet by mouth in the morning and 1 Tablet before bedtime. 60 Tablet 2 09/05/2023 Active Magic Swizzle (Lidocaine-Benadryl- Maalox) oral solutionIndications: Mucositis due to chemotherapy Swish and spit 15 mL in the morning and 15 mL at noon and 15 mL in the evening and 15 mL before bedtime. 500 mL 2 09/05/2023 Active documented as of this encounter (statuses as of 09/08/2023) Active Problems Problem Noted Date Diagnosed Date [...] as of this encounter (statuses as of 09/08/2023) Immunizations Name Administration Dates Next Due TD - Tetanus/Diptheria (ADULT) 08/05/2000 documented as of this encounter Social History Tobacco Use Types Packs/Day Years Used Date Smoking Tobacco: Every Day Cigarettes 2 34 Smokeless Tobacco: Never Tobacco Cessation:Ready to Q uit: Not Asked; Counseling Given: Not Answered Comments:1pkg per day, depends on stress started age 14 Alcohol Use [...] on file documented as of this encounter Last Filed Vital Signs Vital Sign Reading Time Taken Comments Blood Pressure 103/69 09/05/2023 7:59 AM EST Pulse 92 09/05/2023 7:59 AM EST Temperature 36.5 C (97.7 F) 09/05/2023 7:59 AM ES T Respiratory Rate 16 09/05/2023 7:59 AM EST Oxygen Saturation 92% 09/05/2023 7:59 AM EST Inhaled Oxygen Concentration - - Weight 64.7 kg (142 lb 9.6 oz) 09/05/2023 7:59 A M EST Height - - Body Mass Index 23.02 07/18/2023 9:30 AM EST documented in this encounter Functional Status Functional Status Response [...] No 06/04/2023 documented as of this encounter Progress Notes * Palmira Cooper CRNP - 09/05/2023 8:00 AM EST Hematology/Oncology Outpatient Clinic note [facility] [address] [place] [address] Name: Angeles Johnston Date: 09/04/2023 CHIEF COMPLAINT: Angeles Johnston is a 63 year old female here today for f/u visit today. Patient of Dr. Bradley Amaya. From Patient chart confirmed with patient. From Dr. Bradley Amaya note 07/18/23. HEMATOLOGY/ONCOLOGY DIAGNOSIS: Left lung adenocarcinoma no definite site identified in the recent imaging studies -left mediastinal lymph node involvement Left frontal lobe metastasis -PD-L1 55% NGS checkup: -TMB 7.57 which is low MSI stable -KRAS G12V positive - MET --> Copy number gain/amplification of MET gene is identified, copy 9.73. Iron deficiency anemia DATE OF DIAGNOSIS: 06/05/23 TREATMENT HISTORY: Resection of the left frontal tumor on 06/05/2023 Whole brain, hippocampal sparing, radiation therapy completed 08/06/23 IV Monoferric 1,000 mg 08/06/23 CURRENT TREATMENT: Alimta, carboplatin and Keytruda every three weeks (08/15/23 - ) Folic acid 1 mg daily IM Vitamin B12 1,000 mcg every 9 weeks DIAGNOSTIC WORKUP: She came to [facility] ER on 06/01/2023 she, she was brought by EMS after fall athome, injury to the right forehead, loss of bladder control, weakness of the right upper extremity. CT head without intravenous contrast on 06/01/2023 ) 1. Right periorbital and supraorbital hematoma and soft tissue swelling. 2. Abnormal vasogenic edema within the posterior left frontal lobe. CT scan of the chest, abdomen pelvis with intravenous contrast on 06/01/2023 at [facility]: -no suspicious finding noted in the chest -no intra-abdominal mass identified, liver normal, no lymphadenopathy. -CBD dilated at 9 mm. No mass noted. No pancreatic ductal dilatation noted Brain MRI done on 06/02/2023: -1.5 x 1.3 by 1 cm left frontal lobe dural-based enhancing mass with surrounding vasogenic edema. Blood workup done while she was at [facility]: -normal WBC and normal Platelet count, mild anemia with hemoglobin around 9 g/dL -BUN/Creat: 9/0.8 -Serum iron 14, TIBC 366, iron saturation 4% -Ferritin level --> 5.2 -albumin 3.5, -Vitamin B12 186, folic acid 9.2 -TSH 0.19, free T4 0.56 -normal LFT. She was then transferred at [facility]. Repeat brain MRI on 06/04/2023 at [facility] 1. 19 x 13 x 12 mm left posterior frontal lobe rim enhancing lesion with central blood products; enhancing lesion components demonstrate diffusion restriction. 14 x 14 x 13 mm left posterior frontal lobe enhancing lesion with associated diffusion restriction. These lesions are favored to be intra-axial. No increased rCBV perfusion is present within either lesion. These lesions obscure color DTI signal within left corticospinal tract and left superior longitudinal fasciculus. Of note, central FLAIR hypointense signal was present within rim enhancing lesion. Diagnostic considerations include IDH-mutant astrocytoma, oligodendroglioma, or pleomorphic xanthoastrocytoma, among other entities. 2. Chronic brain parenchymal volume loss. 3. Soft tissue swelling/hematoma overlying right frontal bone. Repeat MRI of brain on 06/2023 : - Status post left frontal parietal craniotomy for resection of dural based mass. No residual mass seen Resection of the left frontal tumor on 06/05/2023: -metastatic adenocarcinoma compatible with lung primary. TTF 1 focally positive. -PD-L1 55% NGS checkup: -TMB 7.57 which is low MSI stable -KRAS G12V positive - MET --> Copy number gain/amplification of MET gene is identified, copy 9.73. PET-CT scan done on 07/11/2023: -FDG avid left mediastinal cell / subaortic lymph node measuring 1 x 0.7 cm ( SUV 6.2) -no additional FDG avid disease noted in the chest. -several ground-glass nodules within the lungs noted -no FDG avid disease noted in the abdomen or pelvis -increase uptake noted in the right proximal femur measuring up to 1.2 cm but no definite bone lesions identified OTHER IMPORTANT HISTORY: - COPD, smoking present -not on oxygen treatment -hypertension -right upper extremity seizure, she is on Keppra Hyperlipidemia -currently she is off the Decadron. HISTORY OF PRESENT ILLNESS: Angeles Johnston is a 63 year old female with a history as outlined above. Currently here for f/u visit today and consideration for C2D1 of treatment. Patient states starting about the third day after chemotherapy became very fatigued and a little nauseous. Lasted about one week. Did not take any anti emetics. Also experiencing constipation. Moving bowels about once every other day. Tried taking colace but does not seem to be helping. Also experienced pain in her BLE. Describes it as an aching. Started a few days ago and seems to be getting a little worse. Is not taking ibuprofen. Tried taking Tylenol 1,000 mg but only took once. Did get some mouth sores but didn't last long. Used some old magic mouthwash and they resolved quickly. Denies rashes. Taking folic acid daily. Has a little SOB butthis is not new for her. Is not eating well. Has been drinking mostly boost. Food has a foul/metal taste. Is trying to drink more water but not taking 64 ounces. Is not taking lisinopril or metoprolol d/t hypotension. Past Medical History: Diagnosis Date Pain in limb 1995 left arm, EMG suggested possible mild left CTS in 2001 Past Surgical History: Procedure Laterality Date CXR 2 VIEWS AP/PA & LATERAL 03/23/02+ PAH-the heart size and contour are normal the lungs are expanded and clear MICROSURGERY ADD-ON Left 06/05/2023 MICROSURGICAL SURGERY REQUIRING MICROSCOPE LISTED SEPARATELY performed by Peter Omalley MD at [place] [facility] MRI BRAIN W WO CONTRAST 10/13/01 PAH--the ventricular system is normal in size,postition,and configuration.There is no evidence of midline shift or other mass effect.There is a single small focus of signal intensity in the left thalamic and basal ganglia area which appears to be a MRI BRAIN W WO CONTRAST perivascular space.The pituitary gland,internal auditory cancals,optic chiasm,cerebellum and visualized brainstem are within normal limits.Bilateral maxillary sinusitis with acute changes on the left. REMOVE SUPRATENTORIAL BRAIN TUMOR Left 06/05/2023 CRANIOTOMY BONE FLAP EXCISION BRAIN TUMOR SUPRATENTORIAL performed by Peter Omalley MD [facility] STEREOTACTIC CRANIAL INTRADURAL NAVIGATION Left 06/05/2023 STEREOTACTIC CRANIAL INTRADURAL NAVIGATION performed by Peter Omalley MD at [place] [facility] Social History Socioeconomic History Marital status: Spouse name: Not on file Number of children: 1 Years of education: Not on file Highest education level: Not on file Occupational History Not on file Tobacco Use Smoking status: Every Day Packs/day: 2.00 Years: 34.00 Additional pack years: 0.00 Total pack years: 68.00 Types: Cigarettes Smokeless tobacco: Never Tobacco comments: 1pkg per day, depends on stress started age 14 Vaping Use Vaping Use: Never used Substance and Sexual Activity Alcohol use: Yes Comment: 12 beers a week Drug use: No Sexual activity: Yes Partners: Male Other Topics Concern Not on file Social History Narrative Not on file Social Determinants of Health Financial Resource Strain: Not on file Food Insecurity: Not on file Transportation Needs: Not on file Physical Activity: Not on file Stress: Not on file Social Connections: Not on file Intimate Partner Violence: Not on file Housing Stability: Not on file Review of patient's allergies indicates: No Known Allergies Current Outpatient Medications Medication Sig Dispense Refill fenofibrate (LOFIBRA) 160 MG Tablet Take 1 Tablet by mouth in the morning. 1 omeprazole (PRILOSEC) 40 MG CPDR Take 1 Capsule by mouth in the morning. albuterol (PROAIR HFA) 108 (90 BASE) MCG/ACT inhaler Inhale 2 Puffs by mouth every 6 hours as needed. albuterol sulfate (PROVENTIL) (2.5 MG/3ML) 0.083% nebulizer solution Inhale 1 Vial via nebulizer every 6 hours as needed for Wheezing. Atorvastatin Calcium 80 MG Oral Tablet (Lipitor) Take 1 Tablet by mouth at bedtime. Cholecalciferol 50 MCG (2000 UT) Oral Tablet Take 50 mcg by mouth in the morning. Cyanocobalamin 500 MCG Oral Tablet Take 2 Tablets by mouth in the morning. hydrOXYzine HCl 25 MG Oral Tablet Take 1 Tablet by mouth in the morning and 1 Tablet at noon and 1 Tablet in the evening. Loratadine 10 MG Oral Tablet (Claritin) Take 1 Tablet by mouth in the morning. Metoprolol Succinate ER 25 MG Oral Tablet Extended Release 24 Hour (toPROL XL) Take 0.5 Tablets by mouth in the morning. Mirtazapine 30 MG Oral Tablet (Remeron) Take 1 Tablet by mouth at bedtime. Tiotropium [place] Monohydrate 2.5 MCG/ACT Inhalation Aerosol Solution (Spiriva Respimat) Inhale 2 Puffs by mouth every morning. Lisinopril 5 MG Oral Tablet (Prinivil) Take 1 Tablet by mouth daily in the morning. 30 Tablet 1 levETIRAcetam 250 MG Oral Tablet (Keppra) Take 2 Tablets by mouth in the morning and 2 Tablets before bedtime. 120 Tablet 0 Ondansetron HCl 8 MG Oral Tablet Take 1 Tablet by mouth every 8 hours as needed for Nausea. 30 Tablet 3 Prochlorperazine Maleate 10 MG Oral Tablet (Compazine) Take 1 Tablet by mouth every 6 hours as needed for Nausea. 60 Tablet 2 dexAMETHasone 4 MG Oral Tablet One tablet twice a day for 3 days only, starting one day before the chemotherapy. 36 Tablet 1 Folic Acid 1 MG Oral Tablet Take 1 Tablet by mouth in the morning. 30 Tablet 5 LORazepam 0.5 MG Oral Tablet (Ativan) Take 1 Tablet by mouth 2 times a day as needed for Anxiety orSleep. 30 Tablet 0 No current facility-administered medications for this visit. REVIEW OF SYSTEMS: See HPI - otherwise negative OBJECTIVE: Filed Vitals: 09/05/23 0759 BP: 103/69 Pulse: 92 Resp: 16 Temp: 36.5 C (97.7 F) TempSrc: Tympanic SpO2: 92% Weight: 64.7 kg (142 lb 9.6 oz) Wt Readings from Last 5 Encounters: 09/05/23 64.7 kg (142 lb 9.6 oz) 07/18/23 69.3 kg (152 lb 11.2 oz) 06/24/23 70.4 kg (155 lb 1.6 oz) 06/04/23 69.1 kg (152 lb 6.4 oz) 12/06/16 72.8 kg (160 lb 6.4 oz) PHYSICAL EXAM: ECOG: Performance Status 1 = 80-90% Symptoms but nearly ambulatory General Appearance: No acute distress HEENT: Normal - No oral or pharyngeal masses, ulceration or thrush noted Lymph Nodes: Normal - No palpable lymph nodes in the neck or supraclavicular areas Lungs/Thorax: Clear and diminished to auscultation Heart: Normal - Regular rate and rhythm, normal S1, S2, no appreciable murmurs Pulses/Extremities: Normal - 2+ throughout and symmetrical, no edema Neurologic: Normal - Grossly intact LABS: Results for orders placed or performed in visit on 09/05/23 COMPREHENSIVE METABOLIC PANEL Result Value Ref Range BUN 12 6 - 20 mg/dL Creatinine 1.3 (H) 0.5 - 1.0 mg/dL Estimated Glomerular Filtration Rate 48 (L) >=60 mL/min Sodium 137 135 - 146 mmol/L Potassium 3.8 3.5 - 5.1 mmol/L Chloride 96 (L) 98 - 107 mmol/L CO2 25 22 - 32 mmol/L Anion Gap 16 (H) 7 - 15 mmol/L Glucose 150 (H) 70 - 120 mg/dL Albumin 4.4 3.8 - 5.0 g/dL AST 15 10 - 35 U/L Alkaline Phosphatase 79 35 - 130 U/L Bilirubin, Total 0.2 <=1.2 mg/dL Calcium 10.0 8.4 - 10.2 mg/dL Protein 7.3 6.0 - 8.3 g/dL ALT 16 10 - 35 U/L CBC Result Value Ref Range WBC 5.95 4.00 - 10.80 K/uL RBC 3.95 3.85 - 5.15 M/uL HGB 9.8 (L) 12.0 - 15.3 g/dL HCT 31.8 (L) 36.0 - 45.2 % MCV 80.5 81.5 - 97.5 fL MCH 24.8 27.0 - 34.0 pg MCHC 30.8 32.0 - 36.0 g/dL RDW 26.2 11.5 - 15.5 % PLT 297 140 - 400 K/uL MPV 9.0 6.6 - 11.1 fL DIFFERENTIAL, AUTOMATED Result Value Ref Range WBC 5.95 4.00 - 10.80 K/uL Neutrophils % 73.7 40.0 - 75.0 % Lymphocytes % 13.8 (L) 18.0 - 42.0 % Monocytes % 12.1 (H) 1.0 - 11.0 % Eosinophils % 0.2 0.0 - 6.0 % Basophils % 0.2 0.0 - 2.0 % Absolute Neutrophils 4.39 1.80 - 7.70 K/uL Absolute Lymphocytes 0.82 (L) 1.00 - 4.80 K/ul Absolute Monocytes 0.72 0.00 - 1.10 K/uL Absolute Eosinophils 0.01 0.00 - 0.70 K/uL Absolute Basophils 0.01 0.00 - 0.20 K/uL IMPRESSION/PLAN: Left lung adenocarcinoma Left frontal lobe metastasis Encounter for chemotherapy/immunotherapy JUAN J Drug induced constipation Chemotherapy Mucositis Lab results reviewed: Decline in renal function noted: creatinine 1.3, eGFR 48 Hgb stable at 9.8 Repeat iron studies pending Will hold Alimta today d/t JUAN J. Ok to move forward with Carboplatin and Keytruda today as scheduled. Will administer 1L NSS over two hours today. Encouraged patient to increase oral fluid intake. Confirmed taking Decadron 4 mg, 1 tablet twice a day for 3 days starting 1 day before chemotherapy Whole brain, hippocampal sparing, radiation therapy completed 08/06/23. Patient will reach out to brain tumor MDC to make aware of treatment completion to schedule repeat Brain MRI and f/u visit. Prescription placed for Senokot 1 tablet BID Prescription placed for Magic Mouthwash 15 ml QID PRN Recommended patient to eat six small meals throughout the day. Recommended starting daily protein supplement. Recommended patient trial Claritin 10 mg daily for BLE pain related to chemotherapy. Also ok to take OTC Tylenol PRN per PI. Planning for 3 cycles of chemotherapy and then will repeat PET/CT. RTC in three weeks with provider for chemo return RTC in six weeks with physician for chemo return/scan review LUCHO Blanchard documented in this encounter Nursing Notes * Maddison Castillo CMA - 09/05/2023 7:59 AM EST Patient identifed by name and birthdate Do you have any concerns about pain management for today's visit? Yes. Patient instructed to discuss pain concerns with provider during the visit today Living Will or Advance Directive for Health Care as noted on the problem list. [facility] is a way you can talk to your provider on line through e-mail. Would you like to sign up? I can activate it for you? ALREADY ACTIVE Filed Vitals: 09/05/23 0759 BP: 103/69 Pulse: 92 Resp: 16 Temp: 36.5 C (97.7 F) TempSrc: Tympanic SpO2: 92% Weight: 64.7 kg (142 lb 9.6 oz) Patient was instructed to not get up on the exam table/exam chair until directed and assisted by their provider; patient is to remain seated in the chair/ wheelchair/ exam table/ exam chair for fall prevention and safety reasons. Patient is aware to have assistance to step down off exam table/exam chair with personnel. Patient voiced full comprehension of instructions. documented in this encounter Plan of Treatment Upcoming Encounters Date Type Department Care Team (Late st Contact Info) Description 09/26/2023 8:40 AM EST Laboratory Laboratory [facility] [address] [place] [address] [id number] [address] 09/26/2023 9:30 AM EST Office Visit Hematology/Oncology [facility] [address] [place] [address] [address] Palmira Cooper, LU[place] [address] [facility] [place] [address] 09/26/2023 10:00 AM EST [facility] [address] Mariana, Chair 4 Hem Onc [facility] [address] [facility] [place] [address] 10/17/2023 8:10 AM EDT Laboratory Laboratory [facility] [place] [address] [facility] [place] [phone] Mariana, Lab [address] [place] [address] 10/17/2023 9:15 AM EDT Office Visit Hematology/Oncology [facility] [place] [address] [facility] [place] [address] Bradley Amaya MD [address] [place] [address] 10/17/2023 9:45 AM EDT [facility] [address] [facility] [address] 01/09/2024 9:10 AM EDT Office Visit Neurology, [place] [address] [place] [phone] Alyssa Reich DO [address] [place] [address] Health Maintenance Due Date Last Done Comments DISCUSS TOBACCO CESSATION (REFER TO SMARTSET #4310) 1960 COVID-19 Vaccine (#1) 01/23/1965 Pneumococcal Vaccine: [...] this encounter Medical Devices Implanted Type Area Endocrinology Nurse Device Identifier Shelf Expiration Date Model / Serial / Lot Screw 1.5x4mm Sd Un3 - [id number] Implanted:Qty : 20 on 06/05/2023 by Peter Omalley MD at [facility] Left: Head ANURADHA : CRANIOMAXILLOFACIAL [id number] / / documented as of this encounter Visit Diagnoses Diagnosis Malignant neoplasm of left lung, unspecified part of lung (HCC)- Primary 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
--- OUTSIDE RECORDS SUMMARY | 2023-09-10 04:53 | External Medical Summary ---
Author Name Unknown Address Unknown Organization K09[facility] [place] [address] Laboratory Report Ordering Provider Test Date Status RYNE BRISCOE 08/15/2023 09:49:18 Final Observation Date Value Abnormality Reference (Units ) Status SYNC LEUKOCYTES IN BLOOD BY AUTOMATED COUNT 08/15/2023 09:49:18 10.64 4.00-10.80 (K/uL) Final Segs 08/15/2023 09:49:18 87.1 Above high normal 40.0-75.0 (%) Final Lymphs % 08/15/2023 09:49:18 7.1 Below low normal 18.0-42.0 (%) Final Monos 08/15/2023 09:49:18 5.7 1.0-11.0 (%) Final Eosinophils 08/15/2023 09:49:18 0.0 0.0-6.0 (%) Final Basos 08/15/2023 09:49:18 0.1 0.0-2.0 (%) Final Absolute Segs 08/15/2023 09:49:18 9.26 Above high normal 1.80-7.70 (K/uL) Final Lymphs, absolute 08/15/2023 09:49:18 0.76 Below low normal 1.00-4.80 (K/ul) Final Monos, Abs 08/15/2023 09:49:18 0.61 0.00-1.10 (K/uL) Final Eos, Abs 08/15/2023 09:49:18 0.00 0.00-0.70 (K/uL) Final Basos, Abs 08/15/2023 09:49:18 0.01 0.00-0.20 (K/uL) Final Performing Location [facility] [place] [address]
--- OUTSIDE RECORDS SUMMARY | 2023-09-10 04:53 | External Medical Summary | Summary of Care ---
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 PEMETREXED NOS 10MG IA CARBOPLATIN INJECTION IA FOSAPREPITANT INJECTION IA INJ PEMBROLIZUMAB Bradley Amaya MD [address] [place] [address] Anc Hem/Onc Scenery [address] [address] Referral ID Status Reason Start Date Expiration Date V isits Requested Visits Authorized [id number] Authorized 07/23/2023 07/23/2024 999 [id number] Encounter Details Date Type Department Care Team (Latest Contact Info) Description 08/15/2023 11:30 AM EST Hem/Onc Treatment Hematology/Oncolog y Treatment, [address] [address] Mar[place], Chair 3 Hem Onc Scenery [address] [place] [address] [place] [address] Metastasis to brain (HCC)*; Metastasis to mediastinal lymph node (HCC); Malignant neoplasm of left lung, unspecified part of lung (HCC); Encounter for antineoplastic chemotherapy Allergies No known active allergiesdocumented as of this encounter (statuses as of 08/15/2023) Medications Medication Sig Dispensed Refills Start Date [...] mouth at bedtime. 0 01/15/2023 Active Tiotropium [place] Monohydrate 2.5 MCG/ACT Inhalation Aerosol Solution (Spiriva [...] as of this encounter (statuses as of 08/15/2023) Active Problems Problem Noted Date Diagnosed Date [...] as of this encounter (statuses as of 08/15/2023) Immunizations Name Administration Dates Next Due TD [...] Sign Reading Time Taken Comments Blood Pressure 113/72 08/15/2023 1:46 PM EST Pulse 107 08/15/2023 1:46 PM EST Temperature 36.8 C (98.2 F) 08/15/2023 1:[address] Respiratory Rate 18 08/15/2023 1:46 PM EST Oxygen Saturation 97% 08/15/2023 1:46 PM EST Inhaled Oxygen Concentration - - Weight - - Height - - Body Mass Index - - documented in this encounter Functional Status Functional [...] as of this encounter Nursing Notes * Kim Galindo RN - 08/15/2023 3:23 PM EST Functional status at today's visit: Restricted in physically strenuous activity but ambulatory and able to carry out work on a light orsedentary nature, e.g. light house work, office work The drug name, dose, infusion volume, rate and route of administration, expiration date and time, appearance and physical integrity of the drug and rate set on the pump and sequencing of drug administration (as applicable) were verified by me and second sign-in RN. Patient was assessed for symptoms or adverse side effects during treatment. Goals: Pt will remain free from injury. Possible barriers to meeting goals: risk of reaction, ambulation with IV pole Stability of the patient: Moderately stable - low risk of patient condition declining or worsening Summary regarding today's goals: Met: Pt remained free from injury during treatment today. Discharged in stable condition. Goals: Patient and Caregiver will demonstrate understanding. Possible barriers to meeting goals: anxiety re: starting treatment Stability of the patient: Moderately stable - low risk of patient condition declining or worsening Summary regarding today's goals: Met: Reviewed medications and treatment schedule; pt verbalized understanding. AB assisted. * Kim Galindo RN - 08/15/2023 1:47 PM EST Chair 12, Sorin/César/Greyson D1C1. Reviewed medications, infusion process and treatment schedulewith pt. Oriented to room. PIV established; NSS infusing. Pt denies pain, bowel issues, bleeding, signs of infection, neuropathy, and anorexia. Safety and Risk for Injury Patient will remain free from injury. Ensure appropriate safety devices are available. Provide and maintain safe environment. Knowledge Deficit Patient and Caregiver will demonstrate understanding. Assess current knowledge base. Reinforce education. Teach at level of understanding. documented in this encounter Plan of Treatment Upcoming Encounters Date Type Department Care Team (Late st Contact Info) Description 09/05/2023 7:30 AM EST Laboratory Laboratory [facility] [address] [place] [phone] [place], Lab [facility] [place] [place] [address] 09/05/2023 8:00 AM EST Office Visit Hematology/Oncology [facility] [address] [place] [address] Palmira Cooper CRNP [address] [place] [address] 09/05/2023 8:30 AM EST Hem/Onc Treatment Hematology/Oncology Treatment, [place] [address] [place] [address] Mariana, Chair 1 Hem Onc [facility] [address] [facility] [place] [address] 01/09/2024 9:10 AM EDT Office Visit Neurology, [place] [address] [place] [address] Alyssa Reich DO [address] [place] [address] Scheduled Orders Name Type Priority Associated Diagnoses Orde r Schedule CBC WITH WBC DIFFERENTIAL Lab STAT 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) Malignant neoplasm of left lung, unspecified part of lung (HCC) Encounter for antineoplastic chemotherapy Before Chemo for 5 Occurrences starting 08/15/2023 until 02/11/2024 COMPREHENSIVE METABOLIC PANEL Lab STAT 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) Malignant neoplasm of left lung, unspecified part of lung (HCC) Encounter for antineoplastic chemotherapy Before Chemo for 5 Occurrences starting 08/15/2023 until 02/11/2024 Health Maintenance Due Date Last Done Comments DISCUSS TOBACCO CESSATION (REFER TO SMARTSET #3298) 1960 COVID-19 Vaccine (#1) 01/23/1965 Pneumococcal Vaccine: [...] PAST YEAR FOR COPD 06/05/2024 06/05/2023 GFR 08/15/2024 08/15/2023, 07/05, 06/05/2023, Additional history exists Cologuard 11/20/2024 11/20/2021, 03/05, [...] this encounter Medical Devices Implanted Type Area Loan Coordinator Device Identifier Shelf Expiration Date Model / Serial / Lot Screw 1.5x4mm Sd Un3 - [id number] Implanted:Qty : 20 on 06/05/2023 by Peter Omalley MD at OR [facility] Left: Head ANURADHA : CRANIOMAXILLOFACIAL [id number] / / documented as of this encounter [...] ONCE PRN Other, Hypersensitivity Reaction, Starting on Gege 08/15/23 at 1208, Until Sat08/16/23 at 1207, For 24 hours EPINEPHrine 1 MG/ML inj 0.3 mg 0.3 mg, Intramuscular, ONCE PRN Other, Hypersensitivity Reaction or Anaphylaxis, Starting on Sat08/15/23 at 1208, Until Sat08/16/23 at 1207, For 24 hours hEParin 100 UNIT/ML Lock Flush inj 500 Units 500 Units (5 mL), IV Lock, PRN Other, IV Flush, Starting on Sat08/15/23 at 1208, Until Sat08/16/23 at 1207, For 24 hours, Do not flush if lock, PICC, or central line not in place; IV infusing or unable to flush. Hydrocortisone Sod Suc (PF) (Solu-Cortef) inj 100 mg 100 mg, IV Push, ONCE PRN Other, Hypersensitivity Reaction, Starting on Sat08/15/23 at 1208, Until Sat08/16/23 at 1207, For 24 hours LORAzepam (Ativan) tab 0.5 mg 0.5 mg, Oral, ONCE PRN Anxiety, Nausea, Starting on Gege 08/15/23 at 1315, Until Discontinued NSS infusion Intravenous, at 50 mL/hr, PRN, Starting on Sat08/15/23 at 1315, Until Discontinued, Maintenance line Start Infusion 08/15/2023 12:05 PM EST 50 mL/hr oxygen GAS Inhalation, OXYGEN, First dose on Sat08/15/23 at 1600, Until Discontinued, Device/Managed by: Low Flow Device, [...] Push, PRN Other, IV Flush, Starting on Sat08/15/23 at 1208, Until Sat08/16/23 at 1207, For 24 hours, Do not flush if lock, PICC, or central line not in place; IV infusing or unable to flush. Inactive Administered Medications - up to 3 most recent administrations Medication Order MAR Action Action Date Dose Rate Site CARBOplatin (Paraplatin) 519 mg in D5W 250 mL infusion 519 mg (rounded from 518.5 mg, Target AUC = 5), IV Piggyback, at 500 mL/hr Administer over 30 Minutes, PROTECT FROM LIGHT Administer 30 min after Alimta complete. (Max Creatinine Clearance at 125 ml/min for calculating AUC dose), ONCE, 1 dose, On Sat08/15/23 at 1415 Start Infusion 08/15/2023 2:21 PM EST 519 mg 500 mL/hr Fosaprepitant Dimeglumine (Emend) 150 mg, ondansetron (Zofran) 16 mg, dexamethasone sodium phosphate 12 mg in NSS 250 mL Infusion 150 mg, IV Piggyback, ONCE, 1 dose, On Sat08/15/23 at 1315, Administer over 30 Minutes, Give 30 minutes prior to chemotherapy. Infuse over 30 minutes. Start Infusion 08/15/2023 12:12 PM EST 150 mg 500 mL/hr Pembrolizumab (Keytruda) 200 mg in NSS 100 mL infusion 200 mg, IV Piggyback, ONCE, 1 dose, On Sat08/15/23 at 1315, Administer over 30 Minutes, Infuse through 0.2 micron filter. Start Infusion 08/15/2023 12:53 PM EST 200 mg 200 mL/hr PEMEtrexed Disodium (Alimta) 900 mg in NSS 100 mL infusion 900 mg (500 mg/m2 1.8 m2 Treatment Plan BSA from Recorded weight), IV Piggyback, ONCE, 1 dose, On Gege 08/15/23 at 1345, Administer over 10 Minutes Start Infusion 08/15/2023 1:33 PM EST 900 mg 600 mL/hr documented in this encounter Advance Directives [...] Advance Directives occurred with: Patient Care Teams Heel Seat Sander Relationship Specialty Start Date End Date Kenrick Gallo MD [address] [place] [place] [address] PCP - General Internal Medicine 06/20/23 documented as of this encounter
--- OUTSIDE RECORDS SUMMARY | 2023-09-10 04:53 | External Medical Summary ---
Author Name Unknown Address Unknown Organization [id number]:[facility] [place] [address] Laboratory Report Ordering Provider Test Date Status BENJIE PARSONS 09/05/2023 07:13:19 Final Observation Date Value Abnormality Reference (Units ) Status SYNC LEUKOCYTES IN BLOOD BY AUTOMATED COUNT 09/05/2023 07:13:19 5.95 4.00-10.80 (K/uL) Final Segs 09/05/2023 07:13:19 73.7 40.0-75.0 (%) Final Lymphs % 09/05/2023 07:13:19 13.8 Below low normal 18.0-42.0 (%) Final Monos 09/05/2023 07:13:19 12.1 Above high normal 1.0-11.0 (%) Final Eosinophils 09/05/2023 07:13:19 0.2 0.0-6.0 (%) Final Basos 09/05/2023 07:13:19 0.2 0.0-2.0 (%) Final Absolute Segs 09/05/2023 07:13:19 4.39 1.80-7.70 (K/uL) Final Lymphs, absolute 09/05/2023 07:13:19 0.82 Below low normal 1.00-4.80 (K/ul) Final Monos, Abs 09/05/2023 07:13:19 0.72 0.00-1.10 (K/uL) Final Eos, Abs 09/05/2023 07:13:19 0.01 0.00-0.70 (K/uL) Final Basos, Abs 09/05/2023 07:13:19 0.01 0.00-0.20 (K/uL) Final Performing Location [facility] [address] [place] [address]
--- OUTSIDE RECORDS SUMMARY | 2023-09-10 04:53 | External Medical Summary ---
Author Name Unknown Address Unknown Organization K01:[facility] - [address] [facility] [address] Laboratory Report Ordering Provider Test Date Status RYNE BRISCOE 09/05/2023 07:15:24 Final Observation Date Value Abnormality Reference (Units ) Status Ferritin 09/05/2023 07:15:24 461 Above high normal 13 -150 (ng/mL) Final Postmenopausal women have hi gher ferritin levels than pre-menopausal women. The above reference interval is based on pre-menopausal women. Performing Location [facility] [address] [facility] [address]
--- OUTSIDE RECORDS SUMMARY | 2023-09-10 04:53 | External Medical Summary ---
Author Name Unknown Address Unknown Organization [id number]:[facility] - [address] [facility] [address] Laboratory Report Ordering Provider Test Date Status RYNE BRISCOE 08/15/2023 09:49:18 Final Observation Date Value Abnormality Reference (Units ) Status TSH 08/15/2023 09:49:18 0.34 0.27-4.20 (uIU/mL) Final Performing Location [facility] - [address] [facility] [address]
--- OUTSIDE RECORDS SUMMARY | 2023-09-10 04:53 | External Medical Summary | Summary of Care ---
Author Name Unknown Organization [facility] Address [address] [place] [address] Phone [phone] Care Team Providers Care Classified Copy Control Clerk Name Role Phone Kenrick Gallo MD Primary Care Provider Reason for Visit * Reason Comments Outpatient Testing Encounter Details Date Type Department Care Team (Late st Contact Info) Description 09/05/2023 7:30 AM EST Laboratory Laboratory Scenery [facility] [address] [place] [phone] [facility] Lab Scenery [address] [place] [address] Malignant neoplasm of left lung (HCC); Metastasis to mediastinal lymph node (HCC); Metastasis to brain (HCC); Malignant neoplasm of left lung, unspecified part of lung (HCC); Encounter for antineoplastic chemotherapy; Other iron deficiency anemia Allergies No known active allergiesdocumented as of [...] mouth at bedtime. 0 01/15/2023 Active Tiotropium [place] Monohydrate 2.5 MCG/ACT Inhalation Aerosol Solution (Spiriva [...] Smokeless Tobacco: Never Comments:1pkg per day, emperatriz ds on stress started age 14 Alcohol Use [...] No 06/04/2023 documented as of this encounter Plan of Treatment Upcoming Encounters Date Type Department Care Team (Late st Contact Info) Description 09/05/2023 8:00 AM EST Office Visit Hematology/Oncology [facility] [place] [address] [place] [address] Palmira Cooper CRNP [address] [place] [address] [place] [address] 09/05/2023 8:30 AM EST Hem/Onc Treatment Hematology/Oncology Treatment, [place] [address] [facility] [place] [address] Mariana, Chair 1 Hem Onc [address] [place] [address] 01/09/2024 9:10 AM EDT Office Visit Neurology[address] [place] [address] IzaiahAlyssa ramos, [address] [place] [address] Pending Results Name Type Priority Associated Diagnoses Date /Time TSH WITH FREE T4 IF INDICATED Lab STAT Malignant neoplasm of left lung (HCC) 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) 09/05/2023 7:15 AM EST COMPREHENSIVE METABOLIC PANEL Lab STAT 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) Malignant neoplasm of left lung, unspecified part of lung (HCC) Encounter for antineoplastic chemotherapy 09/05/2023 7:13 AM EST FERRITIN Lab STAT Other iron deficiency anemia 09/05/2023 7:15 AM EST IRON SCREEN, INCLUDING TIBC Lab STAT Other iron deficiency anemia 09/05/2023 7:15 AM EST Health Maintenance Due Date Last Done Comments DISCUSS TOBACCO CESSATION (REFER TO SMARTSET #4471) 1960 COVID-19 Vaccine (#1) 01/23/1965 Pneumococcal Vaccine: [...] this encounter Medical Devices Implanted Type Area Poultry Scientist Device Identifier Shelf Expiration Date Model / Serial / Lot Screw 1.5x4mm Sd Un3 - [id number] Implanted:Qty : 20 on 06/05/2023 by Peter Omalley MD at [facility] Left: Head ANURADHA : CRANIOMAXILLOFACIAL [id number] / / documented as of this encounter Procedures Procedure Name Priority Date/Time Associated Diagnosis Comments DIFFERENTIAL, AUTOMATED STAT 09/05/2023 7:13 AM EST 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) Malignant neoplasm of left lung, unspecified part of lung (HCC) Encounter for antineoplastic chemotherapy CBC STAT 09/05/2023 7:13 AM EST 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) Malignant neoplasm of left lung, unspecified part of lung (HCC) Encounter for antineoplastic chemotherapy CBC STAT 09/05/2023 7:13 AM EST 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) Malignant neoplasm of left lung, unspecified part of lung (HCC) Encounter for antineoplastic chemotherapy documented in this encounter Results * (ABNORMAL) DIFFERENTIAL, AUTOMATED (09/05/2023 7:13 AM EST) WBC 5.95 4.00 - 10.80 K/uL 09/05/2023 7:24 AM EST [facility] [place] 56-02 Neutrophils % 73.7 40.0 - 75.0 % 09/05/2023 7:24 AM EST [facility] [place] 56-02 Lymphocytes % 13.8(L) 18.0 - 42.0 % 09/05/2023 7:24 AM [facility] 56-02 Monocytes % 12.1(H) 1.0 - 11.0 % 09/05/2023 7:24 AM [facility] 56-02 Eosinophils % 0.2 0.0 - 6.0 % 09/05/2023 7:24 AM [facility] 56-02 Basophils % 0.2 0.0 - 2.0 % 09/05/2023 7:24 AM [facility] 56-02 Absolute Neutrophils 4.39 1.80 - 7.70 K/uL 09/05/2023 7:24 AM [facility] 56-02 Absolute Lymphocytes 0.82(L) 1.00 - 4.80 K/ul 09/05/2023 7:24 AM [facility] 56-02 Absolute Monocytes 0.72 0.00 - 1.10 K/uL 09/05/2023 7:24 AM [facility] 56-02 Absolute Eosinophils 0.01 0.00 - 0.70 K/uL 09/05/2023 7:24 AM [facility] 56-02 Absolute Basophils 0.01 0.00 - 0.20 K/uL 09/05/2023 7:24 AM [facility] 56-02 Blood Venous blood specimen / Unknown Venipuncture / Unknown 09/05/2023 7:13 AM EST 09/05/2023 7:13 AM EST Efren Cabello MD LAB BLOOD [facility] 56-02 [address] [place] [address] * (ABNORMAL) CBC (09/05/2023 7:13 AM EST) WBC 5.95 4.00 - 10.80 K/uL 09/05/2023 7:24 AM [facility] 56-02 RBC 3.95 3.85 - 5.15 M/uL 09/05/2023 7:24 AM [facility] 56-02 HGB 9.8(L) 12.0 - 15.3 g/dL 09/05/2023 7:24 AM [facility] 56- HCT 31.8(L) 36.0 - 45.2 % 09/05/2023 7:24 AM [facility] 56- MCV 80.5 81.5 - 97.5 fL 09/05/2023 7:24 AM [facility] 56- MCH 24.8 27.0 - 34.0 pg 09/05/2023 7:24 AM [facility] 56- MCHC 30.8 32.0 - 36.0 g/dL 09/05/2023 7:24 AM [facility] 56- RDW 26.2 11.5 - 15.5 % 09/05/2023 7:24 AM [facility] 56- PLT 297 140 - 400 K/uL 09/05/2023 7:24 AM [facility] 56- MPV 9.0 6.6 - 11.1 fL 09/05/2023 7:24 AM [facility] 56 Blood Venous blood specimen / Unknown Venipuncture / Unknown 09/05/2023 7:13 AM EST 09/05/2023 7:13 AM EST Efren Cabello MD LAB BLOOD [facility] [address] [place], [place] [phone] documented in this encounter Visit Diagnoses Diagnosis Malignant neoplasm of left lung, unspecified part of lung (HCC) 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
--- OUTSIDE RECORDS SUMMARY | 2023-09-10 04:53 | External Medical Summary ---
Author Name Unknown Address Unknown Organization K09:[place] [address] Laboratory Report Ordering Provider Test Date Status RYNE BRISCOE 08/15/2023 09:49:18 Final Observation Date Value Abnormality Reference (Units ) Status WBC, Total 08/15/2023 09:49:18 10.64 4.00-10.8 0 (K/uL) Final RBC 08/15/2023 09:49:18 4.22 3.85-5.15 (M/uL) Final Hemoglobin 08/15/2023 09:49:18 10.0 Below low normal 12 .0-15.3 (g/dL) Final HCT 08/15/2023 09:49:18 32.8 Below low normal 36. 0-45.2 (%) Final MCV 08/15/2023 09:49:18 77.7 81.5-97.5 (fL) Final MCH 08/15/2023 09:49:18 23.7 27.0-34.0 (pg) Final MCHC 08/15/2023 09:49:18 30.5 32.0-36.0 (g/dL) Final RDW 08/15/2023 09:49:18 23.6 11.5-15.5 (%) Final Platelets 08/15/2023 09:49:18 382 140-400 (K /uL) Final MPV 08/15/2023 09:49:18 9.1 6.6-11.1 ( fL) Final Performing Location [place] [address]
--- OUTSIDE RECORDS SUMMARY | 2023-09-10 04:53 | External Medical Summary | Summary of Care ---
Author Name Unknown Organization [facility] Address [address] [place] [address] Phone [phone] Care Team Providers Care Construction Contractor Name Role Phone Kenrick Gallo MD Primary Care Provider Reason for Visit * Reason Onset Date Comments Information 08/14/2023 Decadron reminde r Encounter Details Date Type Department Care Team ([facility] st Contact Info) Description 08/14/2023 Telephone Hematology/Oncology Treatment, [place] [address] [place] [address] Bradley Amaya MD [address] [place] [address] Information (Decadron reminder) Allergies No known active allergiesdocumented as of this encounter (statuses as of 08/14/2023) Medications Medication Sig Dispensed Refills Start Date [...] mouth at bedtime. 0 01/15/2023 Active Tiotropium [place] Monohydrate 2.5 MCG/ACT Inhalation Aerosol Solution (Spiriva [...] as of this encounter (statuses as of 08/14/2023) Active Problems Problem Noted Date Diagnosed Date [...] as of this encounter (statuses as of 08/14/2023) Immunizations Name Administration Dates Next Due TD [...] No 06/04/2023 documented as of this encounter Miscellaneous Notes * Telephone Encounter - Monica Loco RN - 08/14/2023 9:46 AM EST Patient to receive C1D1 keytruda/ alimta/ carbo 08/15/23. Called patient, she confirmed that she started decadron. Disp Refills Start End dexAMETHasone 4 MG Oral Tablet 36 Tablet 1 07/18/2023 -- Sig: One tablet twice a day for 3 days only, starting one day before the chemotherapy. documented in this encounter Plan of Treatment Upcoming Encounters Date Type Department Care Team (Late st Contact Info) Description 08/15/2023 10:30 AM EST Laboratory Laboratory [facility] [address] [place] [phone] [place], Lab Scenery [address] [facility] [place] [address] 08/15/2023 11:30 AM EST Hem/Onc Treatment Hematology/Oncology Treatment, [place] [address] [place] [address] Mariana, Chair 3 Hem Onc Scenery [address] [place] [address] 09/05/2023 8:00 AM EST Laboratory Laboratory Scenery Mathias [place] [address] [place] [phone] [place], Lab Scenery [address] [place] [address] 01/09/2024 9:10 AM EDT Office Visit Neurology, [place] [address] [place] [address] [facility] [address] [place] [address] Health Maintenance Due Date Last Done Comments DISCUSS TOBACCO CESSATION (REFER TO SMARTSET #0718) 1960 COVID-19 Vaccine (#1) 01/23/1965 Pneumococcal Vaccine: [...] PAST YEAR FOR COPD 06/05/2024 06/05/2023 GFR 07/18/2024 07/18/2023, 11/0 08/2022, 06/04/2023, Additional history exists Cologuard 11/20/2024 11/20/2021, 03/05, [...] this encounter Medical Devices Implanted Type Area Law Reporter Device Identifier Shelf Expiration Date Model / Serial / Lot Screw 1.5x4mm Sd Un3 - [id number] Implanted:Qty : 20 on 06/05/2023 by Peter Omalley MD at [facility] Left: Head ANURADHA : CRANIOMAXILLOFACIAL [id number] / / documented as of this encounter Advance Directives Latest Code Status [...] Advance Directives occurred with: Patient Care Teams Construction Contractor Relationship Specialty Start Date End Date Kenrick Gallo MD [address] [place] [address] PCP - General Internal Medicine 06/20/23 documented as of this encounter
--- OUTSIDE RECORDS SUMMARY | 2023-09-10 04:53 | External Medical Summary ---
Author Name Unknown Address Unknown Organization K01:LABORATORY [facility] - [address] [place] [address] Laboratory Report Ordering Provider Test Date Status RYNE BRISCOE 09/05/2023 07:15:24 Final Observation Date Value Abnormality Reference (Units ) Status Iron 09/05/2023 07:15:24 120 33-151 (ug /dL) Final Iron-binding capacity 09/05/2023 07:15:24 312 250-425 (ug/dL) Final Transferrin Sat % 09/05/2023 07:15:24 38 15 -55 (%) Final Performing Location LABORATORY C - [address] [place] [address]
--- OUTSIDE RECORDS SUMMARY | 2023-09-10 04:53 | External Medical Summary | Summary of Care ---
Author Name Unknown Organization [facility] Address [address] [place] [address] Phone [phone] Care Team Providers Care Pulp Tester Name Role Phone Kenrick Gallo MD Primary Care Provider Reason for Visit * Reason Comments Outpatient Testing Encounter Details Date Type Department Care Team (Late st Contact Info) Description 08/15/2023 10:30 AM EST Laboratory Laboratory Scenery [facility] [address] [place] [phone] [facility] Lab Scenery [address] [place] [address] Malignant neoplasm of left lung (HCC); Metastasis to mediastinal lymph node (HCC); Metastasis to brain (HCC) Allergies No known active allergiesdocumented as of [...] mouth at bedtime. 0 01/15/2023 Active Tiotropium [place] Monohydrate 2.5 MCG/ACT Inhalation Aerosol Solution (Spiriva [...] Team (Late st Contact Info) Description 08/15/2023 11:30 AM EST Hem/Onc Treatment Hematology/Oncology Treatment, [place] [address] [place] [address] [place], Chair 3 Hem Onc [facility] [address] [facility] [place] [address] Arrived 09/05/2023 8:00 AM EST Laboratory Laboratory [facility] [place] [address] [place] [phone] Mariana Lab [facility] [address] [place] [address] 01/09/2024 9:10 AM EDT Office Visit Neurology, [place] [address] [place] [address] Alyssa Reich DO [address] [place] [address] Pending Results Name Type Priority Associated Diagnoses Date /Time COMPREHENSIVE METABOLIC PANEL Lab STAT Malignant neoplasm of left lung (HCC) 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) 08/15/2023 9:49 AM EST TSH WITH FREE T4 IF INDICATED Lab STAT Malignant neoplasm of left lung (HCC) 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) 08/15/2023 9:49 AM EST Health Maintenance Due Date Last Done Comments DISCUSS TOBACCO CESSATION (REFER TO SMARTSET #5222) 1960 COVID-19 Vaccine (#1) 01/23/1965 Pneumococcal Vaccine: [...] FOR COPD 06/05/2024 06/05/2023 GFR 07/18/2024 07/18/2023, 11/08/2022, 06/04/2023, Additional history exists Cologuard 11/20/2024 11/20/2021, [...] this encounter Medical Devices Implanted Type Area Supervisor [employer] Device Identifier Shelf Expiration Date Model / Serial / Lot Screw 1.5x4mm Sd Un3 - [id number] Implanted:Qty : 20 on 06/05/2023 by Peter Omalley MD at [facility] Left: Head ANURADHA : CRANIOMAXILLOFACIAL [id number] / / documented as of this encounter Procedures Procedure Name Priority Date/Time Associated Diagnosis Comments DIFFERENTIAL, AUTOMATED STAT 08/15/2023 9:49 AM EST Malignant neoplasm of left lung (HCC) 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) CBC STAT 08/15/2023 9:49 AM EST Malignant neoplasm of left lung (HCC) 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) CBC STAT 08/15/2023 9:49 AM EST Malignant neoplasm of left lung (HCC) 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) documented in this encounter Results * (ABNORMAL) DIFFERENTIAL, AUTOMATED (08/15/2023 9:49 AM EST) WBC 10.64 4.00 - 10.80 K/uL 08/15/2023 9:54 AM EST [facility] 56-02 Neutrophils % 87.1(H) 40.0 - 75.0 % 08/15/2023 9:54 AM EST [facility]02 Lymphocytes % 7.1(L) 18.0 - 42.0 % 08/15/2023 9:54 AM EST [facility] 56-02 Monocytes % 5.7 1.0 - 11.0 % 08/15/2023 9:54 AM EST [facility] 56-02 Eosinophils % 0.0 0.0 - 6.0 % 08/15/2023 9:54 AM EST [facility] 56[facility]02 Basophils % 0.1 0.0 - 2.0 % 08/15/2023 9:54 AM EST [facility] 56-02 Absolute Neutrophils 9.26(H) 1.80 - 7.70 K/uL 08/15/2023 9:54 AM [facility] 56- Absolute Lymphocytes 0.76(L) 1.00 - 4.80 K/ul 08/15/2023 9:54 AM [facility] 56- Absolute Monocytes 0.61 0.00 - 1.10 K/uL 08/15/2023 9:54 AM [facility] 56- Absolute Eosinophils 0.00 0.00 - 0.70 K/uL 08/15/2023 9:54 AM [facility] 56- Absolute Basophils 0.01 0.00 - 0.20 K/uL 08/15/2023 9:54 AM [facility] 56- Blood Venous blood specimen / Unknown Venipuncture / Unknown 08/15/2023 9:49 AM EST 08/15/2023 9:49 AM EST Bradley Amaya MD LAB BLOOD ORDERABLES Performing Organization Address City/State/[facility] Co de Phone Number [facility] 56- [address] [place] [address] * (ABNORMAL) CBC (08/15/2023 9:49 AM EST) WBC 10.64 4.00 - 10.80 K/uL 08/15/2023 9:54 AM [facility] 56- RBC 4.22 3.85 - 5.15 M/uL 08/15/2023 9:54 AM [facility] 56- HGB 10.0(L) 12.0 - 15.3 g/dL 08/15/2023 9:54 AM [facility] 56- HCT 32.8(L) 36.0 - 45.2 % 08/15/2023 9:54 AM [facility] 56- MCV 77.7 81.5 - 97.5 fL 08/15/2023 9:54 AM [facility] 56 MCH 23.7 27.0 - 34.0 pg 08/15/2023 9:54 AM [facility] 56- MCHC 30.5 32.0 - 36.0 g/dL 08/15/2023 9:54 AM [facility] 56- RDW 23.6 11.5 - 15.5 % 08/15/2023 9:54 AM [facility] 56- PLT 382 140 - 400 K/uL 08/15/2023 9:54 AM [facility] 56- MPV 9.1 6.6 - 11.1 fL 08/15/2023 9:54 AM [facility] 56- Blood Venous blood specimen / Unknown Venipuncture / Unknown 08/15/2023 9:49 AM EST 08/15/2023 9:49 AM EST Bradley Amaya MD LAB BLOOD ORDERABLES [facility] [address] [place] [address] documented in this encounter Visit Diagnoses Diagnosis Malignant neoplasm of left lung (HCC) 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
--- OUTSIDE RECORDS SUMMARY | 2023-09-10 04:53 | External Medical Summary | Summary of Care ---
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 FE DERISOMALTOSE 10 MG Bradley Amaya MD [address] [place] [address] [place] [address] Anc Hem/Onc [address] [address] Referral ID Status Reason Start Date Expiration Date V isits Requested Visits Authorized [id number] Authorized 07/23/2023 07/23/2024 999 99 Encounter Details Date Type Department Care Team (Latest Contact Info) Description 08/06/2023 1:00 PM EST Hem/Onc Treatment Hematology/Oncology Treatment, [address] [address] Mariana, Chair 8 Hem Onc [address] [place] [address] Other iron deficiency anemias*; Malignant neoplasm of left lung, unspecified part of lung (HCC); Metastasis to brain (HCC); Metastasis to mediastinal lymph node (HCC) Allergies No known active allergiesdocumented as of this encounter (statuses as of 08/06/2023) Medications Medication Sig Dispensed Refills Start Date [...] mouth at bedtime. 0 01/15/2023 Active Tiotropium [place] Monohydrate 2.5 MCG/ACT Inhalation Aerosol Solution (Spiriva [...] as of this encounter (statuses as of 08/06/2023) Active Problems Problem Noted Date Diagnosed Date [...] as of this encounter (statuses as of 08/06/2023) Immunizations Name Administration Dates Next Due TD [...] Sign Reading Time Taken Comments Blood Pressure 103/73 08/06/2023 2:23 PM EST Pulse 93 08/06/2023 2:23 PM EST Temperature 36.4 C (97.5 F) 08/06/2023 2:23 PM ES T Respiratory Rate 16 08/06/2023 2:23 PM EST Oxygen Saturation 94% 08/06/2023 2:23 PM EST Inhaled Oxygen Concentration - - [...] as of this encounter Nursing Notes * Florencia Hobson RN - 08/06/2023 2:24 PM EST Chair 7. IV inserted. Patient here for Monoferric infusion, RN educated about infusion and use of call frausto. Patient also educated about rechecking labs in 4 weeks, set up for when patient would be due for 2nd chemo cycle. Patient is comfortable and denies further needs at this time. Safety and Risk for Injury Patient will remain free from injury. Ensure appropriate safety devices are available. Provide and maintain safe environment. Goals: Patient will remain free from injury. Possible barriers to meeting goals: ambulating with IV pole Stability of the patient: Moderately stable - low risk of patient condition declining or worsening Summary regarding today's goals: Met: pt remained free of harm today Patient tolerated treatment well without any acute issues or problems. Patient left facility in stable condition and denied any further needs. documented in this encounter Plan of Treatment Upcoming Encounters Date Type Department Care Team (Late st Contact Info) Description 08/15/2023 10:30 AM EST Laboratory Laboratory [facility] [place] [address] [place] [phone] [place], Lab [facility] [address] [place] [address] 08/15/2023 11:30 AM EST Hem/Onc Treatment Hematology/Oncology Treatment, [place] [address] [place] [address] Mariana Chair 3 Hem Onc Scenery [address] [place] [address] 09/05/2023 8:00 AM EST Laboratory Laboratory [facility] Mariana [place] [address] [place] [phone] Jorge Pe[address] Sc[address]ery [address] [place], [place] [address] 01/09/2024 9:10 AM EDT Office Visit Neurology, [place] [address] [place] [phone] Alyssa Reich, [address] [place] [address] Health Maintenance Due Date Last Done Comments DISCUSS TOBACCO CESSATION (REFER TO SMARTSET #8477) 1960 COVID-19 Vaccine (#1) 01/23/1965 Pneumococcal Vaccine: [...] FOR COPD 06/05/2024 06/05/2023 GFR 07/18/2024 07/18/2023, 08/2022, 06/04/2023, Additional history exists Cologuard 11/20/2024 [...] this encounter Medical Devices Implanted Type Area Truckload Owner Operator Device Identifier Shelf Expiration Date Model / Serial / Lot Screw 1.5x4mm Sd Un3 - [id number] Implanted:Qty : 20 on 06/05/2023 by Peter Omalley MD at OR [facility] Left: Head ANURADHA : CRANIOMAXILLOFACIAL [id number] / / documented as of this encounter Visit Diagnoses Diagnosis Other iron deficiency anemias- Primary Malignant neoplasm of left lung, unspecified part of lung (HCC) Metastasis to brain (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 documented in this encounter Administered Medications Active Administered Medications - up to 3 most recent administrations Medication Order MAR Action Action Date Dose Rate Site diphenhydrAMINE (Benadryl) inj 50 mg 50 mg, IV Push, ONCE PRN Other, Hypersensitivity Reaction, Starting on Sat08/06/23 at 1233, Until Sat08/07/23 at 1232, For 24 hours EPINEPHrine 1 MG/ML inj 0.3 mg 0.3 mg, Intramuscular, ONCE PRN Other, Hypersensitivity Reaction or Anaphylaxis, Starting on Sat08/06/23 at 1233, Until Sat08/07/23 at 1232, For 24 hours hEParin 100 UNIT/ML Lock Flush inj 500 Units 500 Units (5 mL), IV Lock, PRN Other, IV Flush, Starting on Sat08/06/23 at 1233, Until Sat08/07/23 at 1232, For 24 hours, Do not flush if lock, PICC, or central line not in place; IV infusing or unable to flush. Hydrocortisone Sod Suc (PF) (Solu-Cortef) inj 100 mg 100 mg, IV Push, ONCE PRN Other, Hypersensitivity Reaction, Starting on Sat08/06/23 at 1233, Until Sat08/07/23 at 1232, For 24 hours NSS infusion Intravenous, at 50 mL/hr, PRN, Starting on Sat08/06/23 at 1345, Until Discontinued, Maintenance line Start Infusion 08/06/2023 12:33 PM EST 50 mL/hr oxygen GAS Inhalation, OXYGEN, First dose on Sat08/06/23 at 1600, Until Discontinued, Device/Managed by: Low [...] Push, PRN Other, IV Flush, Starting on Sat08/06/23 at 1233, Until Sat08/07/23 at 1232, For 24 hours, Do not flush if lock, PICC, or central line not in place; IV infusing or unable to flush. Inactive Administered Medications - up to 3 most recent administrations Medication Order MAR Action Action Date Dose Rate Site Ferric derisomaltose (Monoferric) 1,000 mg in NSS 250 mL ivpb 1,000 mg, IV Piggyback, ONCE, 1 dose, On Sat08/06/23 at 1315, Administer over 30 Minutes, DOSING GUIDELINES: For patient weight LESS THAN 50 kg: Dose 20 mg/kg For patient weight 50 Kg or greater: Dose 1000 mg Start Infusion 08/06/2023 12:34 PM EST 1,000 mg 500 mL/hr documented in this encounter Advance Directives [...] Advance Directives occurred with: Patient Care Teams Baggage Porter Head Relationship Specialty Start Date End Date Kenrick Gallo MD [address] [facility] [place] [address] PCP - General Internal Medicine 06/20/23 documented as of this encounter
--- OUTSIDE RECORDS SUMMARY | 2023-09-10 04:53 | External Medical Summary ---
Author Name Unknown Address Unknown Organization K09:[facility] 56-14 - [address] [place] [address] Laboratory Report Ordering Provider Test Date Status BENJIE PARSONS 09/05/2023 07:13:19 Final Observation Date Value Abnormality Reference (Units ) Status BUN 09/05/2023 07:13:19 12 6-20 (mg/dL) Final Creatinine 09/05/2023 07:13:19 1.3 Above high normal 0.5-1.0 (mg/dL) Final Glomerular filtration rate/1.73 sq M.predicted [Volume Rate/Area] in Serum, Plasma or Blood by Creatinine-based formula (CKD-EPI) 09/05/2023 07:13:19 48 Below low normal >=60 (mL/min) Final eGFR is calculated based on the CKD-EPI 2020 equation SODIUM 09/05/2023 07:13:19 137 135-146 (m mol/L) Final Potassium 09/05/2023 07:13:19 3.8 3.5-5.1 (m mol/L) Final Cl 09/05/2023 07:13:19 96 Below low normal 98- 107 (mmol/L) Final CO2 09/05/2023 07:13:19 25 22-32 (mmo l/L) Final Anion gap 09/05/2023 07:13:19 16 Above high normal 7- 15 (mmol/L) Final Glucose 09/05/2023 07:13:19 150 Above high normal 70 -120 (mg/dL) Final Albumin 09/05/2023 07:13:19 4.4 3.8-5.0 (g /dL) Final AST (Aspartate aminotransferase) 09/05/2023 07:13:19 15 10-35 (U/L) Fin al Alk Phos 09/05/2023 07:13:19 79 35-130 (U/ L) Final Bilirubin, Total 09/05/2023 07:13:19 0.2 <=1 .2 (mg/dL) Final Calcium 09/05/2023 07:13:19 10.0 8.4-10.2 ( mg/dL) Final Protein 09/05/2023 07:13:19 7.3 6.0-8.3 (g /dL) Final ALT (Alanine aminotransferase) 09/05/2023 07:13:19 16 10-35 (U/L) Vic hernandez Performing Location [facility] 12- 04 - [address] [place] [address]
--- OUTSIDE RECORDS SUMMARY | 2023-09-10 04:53 | External Medical Summary ---
Author Name Unknown Address Unknown Organization K09:[facility] [place] [address] Laboratory Report Ordering Provider Test Date Status BENJIE PARSONS 09/05/2023 07:13:19 Final Observation Date Value Abnormality Reference (Units ) Status WBC, Total 09/05/2023 07:13:19 5.95 4.00-10.8 0 (K/uL) Final RBC 09/05/2023 07:13:19 3.95 3.85-5.15 (M/uL) Final Hemoglobin 09/05/2023 07:13:19 9.8 Below low normal 12 .0-15.3 (g/dL) Final HCT 09/05/2023 07:13:19 31.8 Below low normal 36. 0-45.2 (%) Final MCV 09/05/2023 07:13:19 80.5 81.5-97.5 (fL) Final MCH 09/05/2023 07:13:19 24.8 27.0-34.0 (pg) Final MCHC 09/05/2023 07:13:19 30.8 32.0-36.0 (g/dL) Final RDW 09/05/2023 07:13:19 26.2 11.5-15.5 (%) Final Platelets 09/05/2023 07:13:19 297 140-400 (K /uL) Final MPV 09/05/2023 07:13:19 9.0 6.6-11.1 ( fL) Final Performing Location [facility] [place] [address]
--- OUTSIDE RECORDS SUMMARY | 2023-09-10 04:53 | External Medical Summary ---
Author Name Unknown Address Unknown Organization K01:[facility] - [address] [facility] [facility] [address] Laboratory Report Ordering Provider Test Date Status RYNE BRISCOE 09/05/2023 07:15:24 Final Observation Date Value Abnormality Reference (Units ) Status TSH 09/05/2023 07:15:24 0.43 0.27-4.20 (uIU/mL) Final Performing Location [facility] - [address] [facility] [address]
--- OUTSIDE RECORDS SUMMARY | 2023-09-10 04:53 | External Medical Summary ---
Author Name Unknown Address Unknown Organization K09:[facility] 56-[address] [place] [address] Laboratory Report Ordering Provider Test Date Status RYNE BRISCOE 08/15/2023 09:49:18 Final Observation Date Value Abnormality Reference (Units ) Status BUN 08/15/2023 09:49:18 13 6-20 (mg/dL) Final Creatinine 08/15/2023 09:49:18 0.8 0.5-1.0 (mg/dL) Final Glomerular filtration rate/1.73 sq M.predicted [Volume Rate/Area] in Serum, Plasma or Blood by Creatinine-based formula (CKD-EPI) 08/15/2023 09:49:18 80 >=60 (mL/min) Final eGFR is calculated based on the CKD-EPI 2020 equation SODIUM 08/15/2023 09:49:18 139 135-146 (m mol/L) Final Potassium 08/15/2023 09:49:18 4.2 3.5-5.1 (m mol/L) Final Cl 08/15/2023 09:49:18 101 98-107 (mm ol/L) Final CO2 08/15/2023 09:49:18 25 22-32 (mmo l/L) Final Anion gap 08/15/2023 09:49:18 13 7-15 (mmol /L) Final Glucose 08/15/2023 09:49:18 166 Above high normal 70 -120 (mg/dL) Final Albumin 08/15/2023 09:49:18 4.9 3.8-5.0 (g /dL) Final AST (Aspartate aminotransferase) 08/15/2023 09:49:18 16 10-35 (U/L) Fin al Alk Phos 08/15/2023 09:49:18 73 35-130 (U/ L) Final Bilirubin, Total 08/15/2023 09:49:18 <0.2 <=1 .2 (mg/dL) Final Calcium 08/15/2023 09:49:18 10.9 Above high normal 8. 4-10.2 (mg/dL) Final Protein 08/15/2023 09:49:18 7.9 6.0-8.3 (g /dL) Final ALT (Alanine aminotransferase) 08/15/2023 09:49:18 15 10-35 (U/L) Vic hernandez Performing Location [facility] [address] [place] [address]
--- OUTSIDE RECORDS SUMMARY | 2023-09-10 04:53 | External Medical Summary | Summary of Care ---
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 PEMETREXED NOS 10MG AR CARBOPLATIN INJECTION AR FOSAPREPITANT INJECTION AR INJ PEMBROLIZUMAB Bradley Amaya MD [address] [facility] [place] [address] Anc Hem/Onc Scenery [address] [address] Referral ID Status Reason Start Date Expiration Date V isits Requested Visits Authorized [id number] Authorized 07/23/2023 07/23/2024 999 99 Encounter Details Date Type Department Care Team (Latest Contact Info) Description 09/05/2023 8:30 AM EST Hem/Onc Treatment Hematology/Oncolog y Treatment, [address] [address] [place]iana, Chair 1 Hem Onc Scenery [address] [place] [address] [place] [address] Metastasis to brain (HCC)*; Metastasis to mediastinal [...] mouth at bedtime. 0 01/15/2023 Active Tiotropium [place] Monohydrate 2.5 MCG/ACT Inhalation Aerosol Solution (Spiriva [...] Description 09/26/2023 8:40 AM EST Laboratory Laboratory [facility] [place] [address] [place] [place] [phone] [place] [address] [place] [address] [place] [address] 09/26/2023 9:30 AM EST Office Visit Hematology/Oncology [facility] [place] [address] [place] [address] Palmira Cooper CRNP [address] [facility] [place] [address] 09/26/2023 10:00 AM EST [facility] [address] [place], Chair 4 Hem On[address] [place] [address] 10/17/2023 8:10 AM EDT Laboratory Laboratory [facility] [place] [address] [facility] [place] [phone] [place], Lab [address] [place] [address] 10/17/2023 9:15 AM EDT Office Visit Hematology/Oncology [facility] [place] [address] [facility] [place] [address] Bradley Amaya MD [address] [facility] [place] [address] 10/17/2023 9:45 AM EDT [facility] [address] 01/09/2024 9:10 AM EDT Office Visit Neurology, [place] [address] [place] [phone] Alyssa Reich, [address] [place] [address] Health Maintenance Due Date Last Done Comments DISCUSS TOBACCO CESSATION (REFER TO SMARTSET #4777) 1960 COVID-19 Vaccine (#1) 01/23/1965 Pneumococcal Vaccine: [...] this encounter Medical Devices Implanted Type Area Linoleum Layer Apprentice Device Identifier Shelf Expiration Date Model / Serial / Lot Screw 1.5x4mm Sd Un3 - [id number] Implanted:Qty : 20 on 06/05/2023 by Peter Omalley MD at [facility] Left: Head ANURADHA : CRANIOMAXILLOFACIAL [id number] / / documented as of this encounter [...] Sat09/05/23 at 1030, Administer over 30 Minutes, Infuse [...] Advance Directives occurred with: Patient Care Teams Station Installation Supervisor Relationship Specialty Start Date End Date Kenrick Gallo MD [address] [place] [address] PCP - General Internal Medicine 06/20/23 documented as of this encounter
--- OUTSIDE RECORDS SUMMARY | 2023-09-10 04:54 | External Medical Summary | Summary of Care ---
Author Name Unknown Organization [facility] Address [address] [place] [address] Phone [phone] Care Team Providers Care E Commerce Solution Architect Name Role Phone Kenrick Gallo MD Primary Care Provider Encounter Details Date Type Department Care Team (Late st Contact Info) Description 07/25/2023 Orders Only Hematology/Oncology, [facility] [address] [place] [address] Efren [place] MD [address] [place] [address] Allergies No known active allergiesdocumented as of this encounter (statuses as of 07/25/2023) Medications Medication Sig Dispensed Refills Start Date [...] mouth at bedtime. 0 01/15/2023 Active Tiotropium [place] Monohydrate 2.5 MCG/ACT Inhalation Aerosol Solution (Spiriva [...] as of this encounter (statuses as of 07/25/2023) Active Problems Problem Noted Date Diagnosed Date [...] as of this encounter (statuses as of 07/25/2023) Immunizations Name Administration Dates Next Due TD [...] Description 08/15/2023 10:30 AM EST Laboratory Laboratory [facility] [address] [place] [phone] [place], Lab Scenery [address] [facility] [place] [address] 08/15/2023 11:30 AM EST Hem/Onc Treatment Hematology/Oncology Treatment, [place] [address] [place] [address] Mariana, Chair 3 Hem Onc [facility] [address] [place] [address] 01/09/2024 9:10 AM EDT Office Visit Neurology, [place] [address] [place] [address] Alyssa Reich, [address] [place] [address] Health Maintenance Due Date Last Done Comments DISCUSS TOBACCO CESSATION (REFER TO SMARTSET #1994) 1960 COVID-19 Vaccine (#1) 01/23/1965 Pneumococcal Vaccine: [...] this encounter Medical Devices Implanted Type Area Can Filler Device Identifier Shelf Expiration Date Model / Serial / Lot Screw 1.5x4mm Sd Un3 - [id number] Implanted:Qty : 20 on 06/05/2023 by Peter Omalley MD at OR [facility] Left: Head ANURADHA : CRANIOMAXILLOFACIAL [id number] / / documented as of this encounter [...] Advance Directives occurred with: Patient Care Teams E Commerce Solution Architect Relationship Specialty Start Date End Date Kenrick Gallo MD [address] [facility] [place] [address] PCP - General Internal Medicine 06/20/23 documented as of this encounter
--- OUTSIDE RECORDS SUMMARY | 2023-09-10 04:54 | External Medical Summary | Summary of Care ---
Author Name Unknown Organization [facility] Address [address] [place] [address] Phone [phone] Care Team Providers Care Diesel Crane Operator Name Role Phone Kenrick Gallo MD Primary Care Provider Reason for Visit * Reason Onset Date Comments Mycode Lab Reorder 07/30/2023 Encounter Details Date Type Department Care Team ([facility] st Contact Info) Description 07/30/2023 Orders Only Outcomes Research Department [address] [place] [address] Tari Meyer CHRA MyCode Research Other*[id number]* Allergies No known active allergiesdocumented as of this encounter (statuses as of 07/30/2023) Medications Medication Sig Dispensed Refills Start Date [...] mouth at bedtime. 0 01/15/2023 Active Tiotropium [place] Monohydrate 2.5 MCG/ACT Inhalation Aerosol Solution (Spiriva [...] 06/10/2023 Active Ondansetron HCl 8 MG Oral TabletIndications:Monico lignant neoplasm of left lung, unspecified part [...] 2 07/18/2023 Active dexAMETHasone 4 MG Oral TabletIndications:Monico lignant neoplasm of left lung, unspecified part [...] as of this encounter (statuses as of 07/30/2023) Active Problems Problem Noted Date Diagnosed Date [...] as of this encounter (statuses as of 07/30/2023) Immunizations Name Administration Dates Next Due TD [...] as of this encounter Progress Notes * Tari Meyer CHRA - 07/30/2023 8:51 AM EST MyCode lab reordered. documented in this encounter Plan of Treatment Upcoming Encounters Date Type Department Care Team (Late st Contact Info) Description 08/15/2023 10:30 AM EST Laboratory Laboratory [facility] [place] [address] [place] [phone] [place] Lab Scenery [address] [facility] [place] [address] 08/15/2023 11:30 AM EST Hem/Onc Treatment Hematology/Oncology Treatment, [place] [address] [place] [address] [place], Chair 3 Hem Onc [address] [address] [place] [address] 01/09/2024 9:10 AM EDT Office Visit Neurology, [place] [address] [place] [address] Alyssa Reich, [address] [place] [address] Scheduled Orders Name Type Priority Associated Diagnoses Orde r Schedule MYCODE SUBSEQUENT ADULT Lab Routine MyCode Research Other*[id number] Every 6 Months for 2 Occurrences starting 07/30/2023 until 08/18/2024 Health Maintenance Due Date Last Done Comments DISCUSS TOBACCO CESSATION (REFER TO SMARTSET #6637) 1960 COVID-19 Vaccine (#1) 01/23/1965 Pneumococcal Vaccine: [...] this encounter Medical Devices Implanted Type Area Director Medical Affairs Device Identifier Shelf Expiration Date Model / Serial / Lot Screw 1.5x4mm Sd Un3 - [id number] Implanted:Qty : 20 on 06/05/2023 by Peter Omalley MD [place] [facility]: Head ANURADHA : CRANIOMAXILLOFACIAL [id number] / / documented as of this encounter Visit Diagnoses Diagnosis MyCode Research Other*[id number]- Primary documented in this encounter Advance Directives Latest [...] Advance Directives occurred with: Patient Care Teams Diesel Crane Operator Relationship Specialty Start Date End Date Kenrick Gallo MD [address] [place] [address] PCP - General Internal Medicine 06/20/23 documented as of this encounter
--- OUTSIDE RECORDS SUMMARY | 2023-09-10 04:54 | External Medical Summary | Summary of Care ---
Author Name Unknown Organization [facility] Address [address] [place] [address] Phone [phone] Care Team Providers Care Packaging Sales Consultant Name Role Phone Kenrick Gallo MD Primary Care Provider Encounter Details Date Type Department Care Team (Late st Contact Info) Description 07/25/2023 Orders Only Hematology/Oncology, [facility] [address] [place] [address] Efren Cabello MD [address] [place] [address] Allergies No known active allergiesdocumented as of [...] mouth at bedtime. 0 01/15/2023 Active Tiotropium [place] Monohydrate 2.5 MCG/ACT Inhalation Aerosol Solution (Spiriva [...] Description 08/15/2023 10:30 AM EST Laboratory Laboratory [facility] [address] [place] [address] [place], Lab Scenery 200 [facility] [place] [address] 08/15/2023 11:30 AM EST Hem/Onc Treatment Hematology/Oncology Treatment, [place] [address] [place] [address] [place], Chair 3 Hem Onc [facility] [address] [place] [address] 01/09/2024 9:10 AM EDT Office Visit Neurology, [place] [address] [place] [address] Alyssa Reich, [address] [place] [address] Health Maintenance Due Date Last Done Comments DISCUSS TOBACCO CESSATION (REFER TO SMARTSET #9410) 1960 COVID-19 Vaccine (#1) 01/23/1965 Pneumococcal Vaccine: [...] this encounter Medical Devices Implanted Type Area Panel Beater Device Identifier Shelf Expiration Date Model / Serial / Lot Screw 1.5x4mm Sd Un3 - [id number] Implanted:Qty : 20 on 06/05/2023 by Peter Omalley MD at [place] [facility] [place] Left: Head ANURADHA : CRANIOMAXILLOFACIAL [id number] / / documented as of this encounter [...] Advance Directives occurred with: Patient Care Teams Packaging Sales Consultant Relationship Specialty Start Date End Date Kenrick Gallo MD [address] [place] [address] PCP - General Internal Medicine 06/20/23 documented as of this encounter
--- OUTSIDE RECORDS SUMMARY | 2023-09-10 04:54 | External Medical Summary | Summary of Care ---
Author Name Unknown Organization [facility] Address [address] [place] [address] Phone [phone] Care Team Providers Care Duct Cleaner Name Role Phone Kenrick Gallo MD Primary Care Provider Encounter Details Date Type Department Care Team (Late st Contact Info) Description 07/25/2023 Orders Only Hematology/Oncology, [facility] [address] [place] [address] Efren Cabello MD [address] [place] [address] Allergies No known active allergiesdocumented as of [...] mouth at bedtime. 0 01/15/2023 Active Tiotropium [place] Monohydrate 2.5 MCG/ACT Inhalation Aerosol Solution (Spiriva [...] Description 08/15/2023 10:30 AM EST Laboratory Laboratory [facility] [address] [place] [address] [place], Lab Scenery [address] [facility] [place] [address] 08/15/2023 11:30 AM EST Hem/Onc Treatment Hematology/Oncology Treatment, [place] [address] [place] [address] [place], Chair 3 Hem Onc [facility] [address] [place] [address] 01/09/2024 9:10 AM EDT Office Visit Neurology, [place] [address] [place] [address] Alyssa Reich, [address] [place] [address] Health Maintenance Due Date Last Done Comments DISCUSS TOBACCO CESSATION (REFER TO SMARTSET #4198) 1960 COVID-19 Vaccine (#1) 01/23/1965 Pneumococcal Vaccine: [...] this encounter Medical Devices Implanted Type Area Cold Header Device Identifier Shelf Expiration Date Model / Serial / Lot Screw 1.5x4mm Sd Un3 - [id number] Implanted:Qty : 20 on 06/05/2023 by Peter Omalley MD at [place] [facility] Left: Head ANURADHA : CRANIOMAXILLOFACIAL [id number] / / documented as of this encounter [...] Advance Directives occurred with: Patient Care Teams Duct Cleaner Relationship Specialty Start Date End Date Kenrick Gallo MD [address] [facility] [place] [address] PCP - General Internal Medicine 06/20/23 documented as of this encounter
--- OUTSIDE RECORDS SUMMARY | 2023-09-10 04:54 | External Medical Summary | Summary of Care ---
Author Name Unknown Organization [facility] Address [address] [place] [address] Phone [phone] Care Team Providers Care Medical Office Worker Name Role Phone Kenrick Gallo MD Primary Care Provider Reason for Visit * Reason Onset Date Comments Precert Future 07/19/2023 Monoferric Encounter Details Date Type Department Care Team ([facility] st Contact Info) Description 07/19/2023 Telephone Hematology/Oncology [facility] [place] [address] [place] [address] Bradley Amaya MD [address] [place] [address] Precert Future (Monoferric/) Allergies No known active allergiesdocumented as of this encounter (statuses as of 08/01/2023) Medications Medication Sig Dispensed Refills Start Date [...] mouth at bedtime. 0 01/15/2023 Active Tiotropium [place] Monohydrate 2.5 MCG/ACT Inhalation Aerosol Solution (Spiriva [...] the morning. 30 Tablet 5 07/18/2023 Active documented as of this encounter (statuses as of 08/01/2023) Active Problems Problem Noted Date Diagnosed Date [...] as of this encounter (statuses as of 08/01/2023) Immunizations Name Administration Dates Next Due TD [...] encounter Miscellaneous Notes * Telephone Encounter - Leda Corrales OSA - 07/23/2023 4:14 PM EST Called patient, no answer. Left message to call back to schedule. Will call patient again later today/tomorrow. * Telephone Encounter - Monica Loco RN - 07/23/2023 1:52 PM EST Referral entered. Scheduling: please call patient to schedule 2 hour appt "monoferric" (Jose Luis). Patient wanted to schedule around RT one day (just - she didn't say what time radiation is). Thanks! * Telephone Encounter - Monica Loco RN - 07/19/2023 1:17 PM EST "Blood workup done on 07/18/2023: -folic acid--> 2.2, -Ferritin level--> 10 -Vitamin B12--> 428 -Serum iron 17, TIBC 459, iron saturation 4% She should start oral folic acid 1 mg once a day now (already e-prescribed earlier for Alimta chemotherapy). We should repeat folic acid in the next few weeks when she goes for the blood workup Regarding iron deficiency, I would like to give her intravenous iron in the form of Ferric Derisomaltose (Monoferric) x1 dose. Will repeat Ferritin iron profile about 1 month after the IV iron therapy." Patient aware, discussed with her at nurse education visit. * Telephone Encounter - Paulie Quesada RN - 07/19/2023 12:20 PM EST [place] plan built for Monoferric. Will await auth and signature. Pt to have "CBCD, Ferritin, iron profile about 1 month after IV iron treatment." *Pt to start XRT tx on Sunday 07/22- would like to schedule around the same times as those treatments on same day. documented in this encounter Plan of Treatment Upcoming Encounters Date Type Department Care Team (Late st Contact Info) Description 08/15/2023 10:30 AM EST Laboratory Laboratory [facility] [place] [address] [place] [address] [place], Lab [facility] [address] [facility] [place], [place] [address] 08/15/2023 11:30 AM EST Hem/Onc Treatment Hematology/Oncology Treatment, [place] [address] [place] [address] [place], Chair 3 Hem Onc [facility] [address] [facility] [place] [address] 01/09/2024 9:10 AM EDT Office Visit Neurology, [place] [address] [place] [address] Alyssa Reich, [address] [place] [facility] [address] Health Maintenance Due Date Last Done Comments DISCUSS TOBACCO CESSATION (REFER TO SMARTSET #0967) 1960 COVID-19 Vaccine (#1) 01/23/1965 Pneumococcal Vaccine: [...] this encounter Medical Devices Implanted Type Area Food Mixer Repairer Device Identifier Shelf Expiration Date Model / Serial / Lot Screw 1.5x4mm Sd Un3 - [id number] Implanted:Qty : 20 on 06/05/2023 by Peter Omalley MD at [place] [facility] [place] Left: Head ANURADHA : CRANIOMAXILLOFACIAL [id number] / / documented as of this encounter [...] Advance Directives occurred with: Patient Care Teams Medical Office Worker Relationship Specialty Start Date End Date Kenrick Gallo MD [address] [place] [facility] [place] [address] PCP - General Internal Medicine 06/20/23 documented as of this encounter
--- OUTSIDE RECORDS SUMMARY | 2023-09-10 04:54 | External Medical Summary | Summary of Care ---
Author Name Unknown Organization [facility] Address [address] [place] [address] Phone [phone] Care Team Providers Care Exercise Rider Name Role Phone Kenrick Gallo MD Primary Care Provider Reason for Visit * Reason Onset Date Comments Precert Future 07/19/2023 Monoferric Encounter Details Date Type Department Care Team ([facility] st Contact Info) Description 07/19/2023 Telephone Hematology/Oncology [facility] [place] [address] [place] [address] Bradley Amaya MD [address] [place] [address] Precert Future (Monoferric/) Allergies No known active [...] mouth at bedtime. 0 01/15/2023 Active Tiotropium [place] Monohydrate 2.5 MCG/ACT Inhalation Aerosol Solution (Spiriva [...] Telephone Encounter - Leda Corrales OSA - 08/01/2023 1:42 PM EST Spoke to patient, scheduled iron infusion 08/06/23- patient preferred it be after radiation, which isat 11:45 am. * Telephone Encounter - Leda Corrales OSA - 08/01/2023 9:13 AM EST Called patient to schedule iron infusion separately from treatment, no answer, left message. * Telephone Encounter - Leda Corrales OSA [...] Quesada RN - 07/19/2023 12:20 PM EST [place] plan built for Monoferric. Will await auth [...] Care Team (Late st Contact Info) Description 08/06/2023 1:00 PM EST Hem/Onc Treatment Hematology/Oncology Treatment, [place] [address] [facility] [address] [place], Chair 8 Hem Onc [facility] [address] 08/15/2023 10:30 AM EST Laboratory Laboratory Sc[facility]ery [place] [address] [place] [phone] [place], Lab [address]enery [address] [facility] [place] [address] 08/15/2023 11:30 AM EST Hem/Onc Treatment Hematology/Oncology Treatment, [place] [address] [place] [address] [place], Chair 3 Hem Onc [place] [address] [place] [address] 01/09/2024 9:10 AM EDT Office Visit Neurology, [place] [address] [place] [address] Alyssa Reich, [address] [place], [place] [address] Health Maintenance Due Date Last Done Comments DISCUSS TOBACCO CESSATION (REFER TO SMARTSET #1312) 1960 COVID-19 Vaccine (#1) 01/23/1965 Pneumococcal Vaccine: [...] this encounter Medical Devices Implanted Type Area Business Relationship Manager Device Identifier Shelf Expiration Date Model / Serial / Lot Screw 1.5x4mm Sd Un3 - [id number] Implanted:Qty : 20 on 06/05/2023 by Peter Omalley MD at [place] [facility] [place] Left: Head ANURADHA : CRANIOMAXILLOFACIAL [id number] / / documented as of this encounter [...] Advance Directives occurred with: Patient Care Teams Exercise Rider Relationship Specialty Start Date End Date Kenrick Gallo MD [address] [facility] [place] [address] PCP - General Internal Medicine 06/20/23 documented as of this encounter
--- OUTSIDE RECORDS SUMMARY | 2023-09-10 04:54 | External Medical Summary | Summary of Care ---
Author Name Unknown Organization [facility] Address [address] [place] [address] Phone [phone] Care Team Providers Care Raw Products Director Name Role Phone Kenrick Gallo MD Primary Care Provider Reason for Visit * Reason Onset Date Comments Precert Future 07/19/2023 Monoferric Encounter Details Date Type Department Care Team ([facility] st Contact Info) Description 07/19/2023 Telephone Hematology/Oncology [facility] [place] [address] [place] [address] Bradley Amaya MD [address] [place] [address] Precert Future (Monoferric/) Allergies No known active [...] mouth at bedtime. 0 01/15/2023 Active Tiotropium [place] Monohydrate 2.5 MCG/ACT Inhalation Aerosol Solution (Spiriva [...] Quesada RN - 07/19/2023 12:20 PM EST [place] plan built for Monoferric. Will await auth [...] Description 08/15/2023 10:30 AM EST Laboratory Laboratory [facility] [place] [address] [place] [address] [place], Lab [address] [facility] [place] [address] 08/15/2023 11:30 AM EST Hem/Onc Treatment Hematology/Oncology Treatment, [place] [address] [place] [address] [place], Chair 3 Hem [facility] [address] [place] [address] 01/09/2024 9:10 AM EDT Office Visit Neurology, [place] [address] [place] [address] Alyssa Reich DO [address] [place], [place] [address] Health Maintenance Due Date Last Done Comments DISCUSS TOBACCO CESSATION (REFER TO SMARTSET #3599) 1960 COVID-19 Vaccine (#1) 01/23/1965 Pneumococcal Vaccine: [...] this encounter Medical Devices Implanted Type Area Structural Steel Erection Supervisor Device Identifier Shelf Expiration Date Model / Serial / Lot Screw 1.5x4mm Sd Un3 - [id number] Implanted:Qty : 20 on 06/05/2023 by Peter Omalley MD at [facility] Left: Head ANURADHA : CRANIOMAXILLOFACIAL [id number] / / documented as of this encounter [...] Advance Directives occurred with: Patient Care Teams Raw Products Director Relationship Specialty Start Date End Date Kenrick Gallo MD [address] [place] [address] PCP - General Internal Medicine 06/20/23 documented as of this encounter
--- OUTSIDE RECORDS SUMMARY | 2023-09-10 04:55 | External Medical Summary | Summary of Care ---
Author Name Unknown Organization [facility] Address [address] [place] [address] Phone [phone] Care Team Providers Care Finished Stock Inspector Name Role Phone Kenrick Gallo MD Primary Care Provider Reason for Visit * Reason Onset Date Comments Precert Future 07/18/2023 martha Rowellmtderrek , carboplatin Encounter Details Date Type Department Care Team ([facility] st Contact Info) Description 07/18/2023 Telephone Hematology/Oncology Treatment, [place] [address] [place] [address] Bradley Amaya MD [address] [place] [address] Precert Future (Keytruda, alimta, carbopla... Allergies No known active allergiesdocumented as of this encounter (statuses as of 07/23/2023) Medications Medication Sig Dispensed Refills Start Date [...] mouth at bedtime. 0 01/15/2023 Active Tiotropium [place] Monohydrate 2.5 MCG/ACT Inhalation Aerosol Solution (Spiriva [...] as of this encounter (statuses as of 07/23/2023) Active Problems Problem Noted Date Diagnosed Date [...] as of this encounter (statuses as of 07/23/2023) Immunizations Name Administration Dates Next Due TD [...] Encounter - Monica Loco RN - 07/23/2023 4:36 PM EST Referral entered. Scheduling: please call patient to schedule for 1/2 or later date - labs "CBCd, CMP, TSH/T4"- ok to do day prior if patient prefers - 3 hour appt "C1D1 keytruda/ carbo/ alimta" (Jose Luis) Thanks! * Telephone Encounter - Monica Loco RN - 07/19/2023 1:19 PM EST Consent signed. Patient received B12 injection, will start folic acid either tonight or tomorrow morning. Radiation starts 07/22/23, plan is for 10 treatments (2 weeks). * Telephone Encounter - Monica Loco RN - 07/18/2023 5:08 PM EST Order received for keytruda, alimta, carbo. [place] plan built and routed for signature. Waiting for auth Patient will need to sign consent. Nurse education 07/19/23- will need B12 injection. Hep B labs 07/18/23. Will need to confirm patient started folic acid. Per order, patient to start once whole brain radiation at [facility] is complete. documented in this encounter Plan of Treatment Upcoming Encounters Date Type Department Care Team (Late st Contact Info) Description 01/09/2024 9:10 AM EDT Office Visit Neurology, [place] [address] [place] [address] Alyssa Reich DO [address] [place] [address] Health Maintenance Due Date Last Done Comments DISCUSS TOBACCO CESSATION (REFER TO SMARTSET #3576) 1960 COVID-19 Vaccine (#1) 01/23/1965 Pneumococcal Vaccine: [...] Blood Test 05/12/2019 05/12/2018 Mammogram 03/17/2022 03/17/2021, 1003/2019, 11/29/2016 Influenza Vaccine (FLU shot) (#1) 2023 [...] this encounter Medical Devices Implanted Type Area Assistant Production Manager Device Identifier Shelf Expiration Date Model / Serial / Lot Screw 1.5x4mm Sd Un3 - [id number] Implanted:Qty : 20 on 06/05/2023 by Peter Omalley MD at [facility] Left: Head ANURADHA : CRANIOMAXILLOFACIAL [id number] / / documented as of this encounter [...] Advance Directives occurred with: Patient Care Teams Finished Stock Inspector Relationship Specialty Start Date End Date Kenrick Gallo MD [address] [place] [address] PCP - General Internal Medicine 06/20/23 documented as of this encounter
--- OUTSIDE RECORDS SUMMARY | 2023-09-10 04:55 | External Medical Summary | Summary of Care ---
Author Name Unknown Organization [facility] Address [address] [place] [address] Phone [phone] Care Team Providers Care Book Jogger Name Role Phone Kenrick Gallo MD Primary Care Provider Encounter Details Date Type Department Care Team (Late st Contact Info) Description 07/25/2023 Orders Only Hematology/Oncology, [facility] [address] [place] [address] Efren Cabello MD [address] [place] [address] Allergies No known active allergiesdocumented as of [...] mouth at bedtime. 0 01/15/2023 Active Tiotropium [place] Monohydrate 2.5 MCG/ACT Inhalation Aerosol Solution (Spiriva [...] 08/15/2023 10:30 AM EST Laboratory Laboratory [facility] [address] [place] [id number] [place], Lab Scenery 200 [facility] [place] [id number] 08/15/2023 11:30 AM EST Hem/Onc Treatment Hematology/Oncology Treatment, [place] [address] [place] [address] [place], Chair 3 Hem Onc [facility] [address] [place] [address] 01/09/2024 9:10 AM EDT Office Visit Neurology, [place] [address] [place] [address] Alyssa Reich, [address] [place] [address] Health Maintenance Due Date Last Done Comments DISCUSS TOBACCO CESSATION (REFER TO SMARTSET #8789) 1960 COVID-19 Vaccine (#1) 01/23/1965 Pneumococcal Vaccine: [...] this encounter Medical Devices Implanted Type Area Curb Hop Device Identifier Shelf Expiration Date Model / Serial / Lot Screw 1.5x4mm Sd Un3 - [id number] Implanted:Qty : 20 on 06/05/2023 by Peter Omalley MD [place] [facility] [place]: Head ANURADHA : CRANIOMAXILLOFACIAL [id number] / / documented as of this encounter [...] Advance Directives occurred with: Patient Care Teams Book Jogger Relationship Specialty Start Date End Date Kenrick Gallo MD [address] [facility] [place] [address] PCP - General Internal Medicine 06/20/23 documented as of this encounter
--- OUTSIDE RECORDS SUMMARY | 2023-09-10 04:55 | External Medical Summary | Summary of Care ---
Author Name Unknown Organization [facility] Address [address] [place] [address] Phone [phone] Care Team Providers Care Ghost Writer Name Role Phone Kenrick Gallo MD Primary Care Provider Encounter Details Date Type Department Care Team (Late st Contact Info) Description 07/25/2023 Orders Only Hematology/Oncology, [facility] [address] [place] [address] Efren Cabello MD [address] [place] [address] Allergies No known active allergiesdocumented as of [...] mouth at bedtime. 0 01/15/2023 Active Tiotropium [place] Monohydrate 2.5 MCG/ACT Inhalation Aerosol Solution (Spiriva [...] Description 08/15/2023 10:30 AM EST Laboratory Laboratory [facility] [address] [place] [id number] [place], Lab Scenery 200 [facility] [place] [address] 08/15/2023 11:30 AM EST Hem/Onc Treatment Hematology/Oncology Treatment, [place] [address] [place] [address] Mar[place], Chair 3 Hem Onc [facility] [address] [place] [address] 01/09/2024 9:10 AM EDT Office Visit Neurology, [place] [address] [place] [address] Alyssa Reich, [address] [place] [address] Health Maintenance Due Date Last Done Comments DISCUSS TOBACCO CESSATION (REFER TO SMARTSET #0973) 1960 COVID-19 Vaccine (#1) 01/23/1965 Pneumococcal Vaccine: [...] this encounter Medical Devices Implanted Type Area Polishing Machine Operator Device Identifier Shelf Expiration Date Model / Serial / Lot Screw 1.5x4mm Sd Un3 - [id number] Implanted:Qty : 20 on 06/05/2023 by Peter Omalley MD at [place] [facility] Left: Head ANURADHA : CRANIOMAXILLOFACIAL [id number] / / documented as of this encounter [...] Advance Directives occurred with: Patient Care Teams Ghost Writer Relationship Specialty Start Date End Date Kenrick Gallo MD [address] [facility] [place] [address] PCP - General Internal Medicine 06/20/23 documented as of this encounter
--- OUTSIDE RECORDS SUMMARY | 2023-09-10 04:55 | External Medical Summary | Summary of Care ---
Author Name Unknown Organization [facility] Address [address] [place] [address] Phone [phone] Care Team Providers Care Outboard Motorboat Rigger Name Role Phone Kenrick Gallo MD Primary Care Provider Reason for Visit * Reason Onset Date Comments Precert Future 07/18/2023 martha Chowdarymtderrek , carboplatin Encounter Details Date Type Department Care Team ([facility] st Contact Info) Description 07/18/2023 Telephone Hematology/Oncology Treatment, [place] [address] [place] [address] Bradley Amaya MD [address] [place] [address] Precert Future (Keytruda, alimta, carbopla... Allergies No known active allergiesdocumented as of this encounter (statuses as of 07/24/2023) Medications Medication Sig Dispensed Refills Start Date [...] mouth at bedtime. 0 01/15/2023 Active Tiotropium [place] Monohydrate 2.5 MCG/ACT Inhalation Aerosol Solution (Spiriva [...] as of this encounter (statuses as of 07/24/2023) Active Problems Problem Noted Date Diagnosed Date [...] as of this encounter (statuses as of 07/24/2023) Immunizations Name Administration Dates Next Due TD [...] Telephone Encounter - Leda Corrales OSA - 07/24/2023 8:57 AM EST Spoke to patient, she stated she did not want to start until the week after the 2nd. Scheduled patient for labs/treatment 08/15/23. * Telephone Encounter - Monica Loco RN [...] 07/18/2023 5:08 PM EST Order received for shawna chowdary carbo. [place] plan built and routed for signature. Waiting for auth Patient will need to sign consent. Nurse education 07/19/23- will need B12 injection. Hep B labs 07/18/23. Will need to confirm patient started folic acid. Per order, patient to start once whole brain radiation at [facility] is complete. documented in this encounter Plan of Treatment Upcoming Encounters Date Type Department Care Team (Late st Contact Info) Description 08/15/2023 10:30 AM EST Laboratory [facility] [place] [address] [place] [phone] [place], Lab Scenery 200 [facility] [place] [address] 08/15/2023 11:30 AM EST Hem/Onc Treatment Hematology/Oncology Treatment, [place] [address] [place] [address] Mariana, Chair 3 Hem Onc [address] [address] [place] [address] 01/09/2024 9:10 AM EDT Office Visit Neurology, [place] [address] [place] [address] Alyssa Reich DO [address] [place] [address] Health Maintenance Due Date Last Done Comments DISCUSS TOBACCO CESSATION (REFER TO SMARTSET #6712) 1960 COVID-19 Vaccine (#1) 01/23/1965 Pneumococcal Vaccine: [...] this encounter Medical Devices Implanted Type Area Head Of Sales And Marketing Device Identifier Shelf Expiration Date Model / Serial / Lot Screw 1.5x4mm Sd Un3 - [id number] Implanted:Qty : 20 on 06/05/2023 by Peter Omalley MD at [facility] Left: Head ANURADHA : CRANIOMAXILLOFACIAL [id number] / / documented as of this encounter [...] Advance Directives occurred with: Patient Care Teams Outboard Motorboat Rigger Relationship Specialty Start Date End Date Kenrick Gallo MD [address] [facility] [place] [address] PCP - General Internal Medicine 06/20/23 documented as of this encounter
--- OUTSIDE RECORDS SUMMARY | 2023-09-10 04:55 | External Medical Summary | Summary of Care ---
Author Name Unknown Organization [facility] Address [address] [place] [address] Phone [phone] Care Team Providers Care Digital Asset Manager Name Role Phone Kenrick Gallo MD Primary Care Provider Encounter Details Date Type Department Care Team (Late st Contact Info) Description 07/19/2023 11:00 AM EST Nurse Only Hematology/Oncology [facility] [place] [address] [place] [address] Mar[place], Nurse Hem Onc [place] [address] [place] [address] Allergies No known active allergiesdocumented as of this encounter (statuses as of 07/22/2023) Medications Medication Sig Dispensed Refills Start Date [...] mouth at bedtime. 0 01/15/2023 Active Tiotropium [place] Monohydrate 2.5 MCG/ACT Inhalation Aerosol Solution (Spiriva [...] as of this encounter (statuses as of 07/22/2023) Active Problems Problem Noted Date Diagnosed Date [...] as of this encounter (statuses as of 07/22/2023) Immunizations Name Administration Dates Next Due TD [...] as of this encounter Nursing Notes * Monica Loco RN - 07/22/2023 4:33 PM EST Nurse education for shawna chowdary carboplatin completed. documented in this encounter Plan of Treatment Upcoming Encounters Date Type Department Care Team (Late st Contact Info) Description 01/09/2024 9:10 AM EDT Office Visit [facility] [address] [place] [address] Alyssa Reich DO [address] [place], [place] [phone] Health Maintenance Due Date Last Done Comments DISCUSS TOBACCO CESSATION (REFER TO SMARTSET #7663) 1960 COVID-19 Vaccine (#1) 01/23/1965 Pneumococcal Vaccine: [...] this encounter Medical Devices Implanted Type Area Envelope Stamping Machine Operator Device Identifier Shelf Expiration Date Model / Serial / Lot Screw 1.5x4mm Sd Un3 - [id number] Implanted:Qty : 20 on 06/05/2023 by Peter Omalley MD at [facility] Left: Head ANURADHA : CRANIOMAXILLOFACIAL [id number] / / documented as of this encounter [...] Advance Directives occurred with: Patient Care Teams Digital Asset Manager Relationship Specialty Start Date End Date Kenrick Gallo MD [address] [facility] [place] [address] PCP - General Internal Medicine 06/20/23 documented as of this encounter
--- OUTSIDE RECORDS SUMMARY | 2023-09-10 04:55 | External Medical Summary | Summary of Care ---
Author Name Unknown Organization [facility] Address [address] [place] [address] Phone [phone] Care Team Providers Care Mechanic Helper Name Role Phone Kenrick Gallo MD Primary Care Provider Reason for Visit * Reason Onset Date Comments Precert Future 07/19/2023 Monoferric Encounter Details Date Type Department Care Team ([facility] st Contact Info) Description 07/19/2023 Telephone Hematology/Oncology [facility] [place] [address] [place] [address] Bradley Amaya MD [address] [place] [address] Precert Future (Monoferric/) Allergies No known active [...] mouth at bedtime. 0 01/15/2023 Active Tiotropium [place] Monohydrate 2.5 MCG/ACT Inhalation Aerosol Solution (Spiriva [...] Quesada RN - 07/19/2023 12:20 PM EST [place] plan built for Monoferric. Will await auth [...] 01/09/2024 9:10 AM EDT Office Visit Neurology, [place] [address] [place] [address] Alyssa Reich DO [address], [place] [phone] Health Maintenance Due Date Last Done Comments DISCUSS TOBACCO CESSATION (REFER TO SMARTSET #9189) 1960 COVID-19 Vaccine (#1) 01/23/1965 Pneumococcal Vaccine: [...] this encounter Medical Devices Implanted Type Area Computer Support Analyst Device Identifier Shelf Expiration Date Model / Serial / Lot Screw 1.5x4mm Sd Un3 - [id number] Implanted:Qty : 20 on 06/05/2023 by Peter Omal[place] [facility] [place]: Head ANURADHA : CRANIOMAXILLOFACIAL [id number] / / documented as of this encounter [...] Advance Directives occurred with: Patient Care Teams Mechanic Helper Relationship Specialty Start Date End Date Kenrick Gallo MD [address] [place] [place] [address] PCP - General Internal Medicine 06/20/23 documented as of this encounter
--- OUTSIDE RECORDS SUMMARY | 2023-09-10 04:55 | External Medical Summary | Summary of Care ---
Author Name Unknown Organization [facility] Address [address] [place] [address] Phone [phone] Care Team Providers Care Sourcing Internship Name Role Phone Kenrick Gallo MD Primary Care Provider Reason for Visit * Reason Onset Date Comments Precert Future 07/19/2023 Monoferric Encounter Details Date Type Department Care Team ([facility] st Contact Info) Description 07/19/2023 Telephone Hematology/Oncology [facility] [place] [address] [place] [address] Bradley Amaya MD [address] [place] [address] Precert Future (Monoferric/) Allergies No known active [...] mouth at bedtime. 0 01/15/2023 Active Tiotropium [place] Monohydrate 2.5 MCG/ACT Inhalation Aerosol Solution (Spiriva [...] Quesada RN - 07/19/2023 12:20 PM EST [place] plan built for Monoferric. Will await auth [...] Description 01/09/2024 9:10 AM EDT Office Visit Neurology[address] [address] [place] [address] [place], [place] [address] Health Maintenance Due Date Last Done Comments DISCUSS TOBACCO CESSATION (REFER TO SMARTSET #2283) 1960 COVID-19 Vaccine (#1) 01/23/1965 Pneumococcal Vaccine: [...] 06/04/2023, Additional history exists Cologuard 11/20/2024 11/20/2021, 0810/2020, 06/24/2020 Colorectal Cancer Screening 11/20/2024 Pap Smear [...] this encounter Medical Devices Implanted Type Area Tripe Cooker Device Identifier Shelf Expiration Date Model / Serial / Lot Screw 1.5x4mm Sd Un3 - [id number] Implanted:Qty : 20 on 06/05/2023 by Peter Omalley MD at [place] [facility] [place] [facility] Left: Head ANURADHA : CRANIOMAXILLOFACIAL [id number] / / documented as of this encounter [...] Advance Directives occurred with: Patient Care Teams Sourcing Internship Relationship Specialty Start Date End Date Kenrick Gallo MD [address] [facility] [place] [address] PCP - General Internal Medicine 06/20/23 documented as of this encounter
--- OUTSIDE RECORDS SUMMARY | 2023-09-10 04:56 | External Medical Summary | Summary of Care ---
Author Name Unknown Organization [facility] Address [address] [place] [address] Phone [phone] Care Team Providers Care Director Community Organization Name Role Phone Kenrick Gallo MD Primary Care Provider Reason for Visit * Reason Onset Date Comments Dietary Manager Documentation 07/19/2023 Encounter Details Date Type Department Care Team ([facility] st Contact Info) Description 07/19[facility]2023 [facility] [address] [place], [place] [phone] Jose Manuel Verduzco, PHARM TECH Dietary Manager Documentation Allergies No known active allergiesdocumented as of this encounter (statuses as of 07/19/2023) Medications Medication Sig Dispensed Refills Start Date [...] mouth at bedtime. 0 01/15/2023 Active Tiotropium [place] Monohydrate 2.5 MCG/ACT Inhalation Aerosol Solution (Spiriva [...] as of this encounter (statuses as of 07/19/2023) Active Problems Problem Noted Date Diagnosed Date [...] as of this encounter (statuses as of 07/19/2023) Immunizations Name Administration Dates Next Due TD [...] encounter Miscellaneous Notes * Telephone Encounter - Jose Manuel Verduzco MSW - 07/19/2023 1:57 PM EST SW left a message for Ms. Johnston regarding assistance for transportation. SW left his name, number,and hours for the remainder of the day. SW encouraged her to call him back at her earliest convenience. Services provided include: Care Coordination Follow-up Calls and Visits Transportation Referrals/Coordination Theodore Figueroa, PHARM TECH, NURSING INFORMATICS CLINICAL ANALYST Bilingual Speech Language Pathologist Hematology/Oncology [place] Office: [phone] [place] Office: [phone] E-mail: [email or web address] documented in this encounter Plan of Treatment Upcoming Encounters Date Type Department Care Team (Late st Contact Info) Description 01/09/2024 9:10 AM EDT [facility] [address] [place] [address] Alyssa Reich DO [address] [place] [address] Health Maintenance Due Date Last Done Comments DISCUSS TOBACCO CESSATION (REFER TO SMARTSET #7514) 1960 COVID-19 Vaccine (#1) 01/23/1965 Pneumococcal Vaccine: [...] this encounter Medical Devices Implanted Type Area Employee Health Rn Device Identifier Shelf Expiration Date Model / Serial / Lot Screw 1.5x4mm Sd Un3 - [id number] Implanted:Qty : 20 on 06/05/2023 by Peter Omalley MD at [place] [facility] Left: Head ANURADHA : CRANIOMAXILLOFACIAL [id number] / / documented as of this encounter [...] Advance Directives occurred with: Patient Care Teams Director Community Organization Relationship Specialty Start Date End Date Kenrick Gallo MD [address] [place] [address] PCP - General Internal Medicine 06/20/23 documented as of this encounter
--- OUTSIDE RECORDS SUMMARY | 2023-09-10 04:56 | External Medical Summary | Summary of Care ---
Author Name Unknown Organization [facility] Address [address] [place] [address] Phone [phone] Care Team Providers Care Party Plan Sales Agent Name Role Phone Kenrick Gallo MD Primary Care Provider Reason for Visit * Reason Onset Date Comments Precert Future 07/18/2023 martha [place]mtderrek , carboplatin Encounter Details Date Type Department Care Team ([facility] st Contact Info) Description 07/18/2023 Telephone Hematology/Oncology Treatment, [place] [address] [place] [address] Bradley Amaya MD [address] [place] [address] Precert Future (Keytruda, alimta, carbopla... Allergies No [...] mouth at bedtime. 0 01/15/2023 Active Tiotropium [place] Monohydrate 2.5 MCG/ACT Inhalation Aerosol Solution (Spiriva [...] 07/18/2023 5:08 PM EST Order received for ricarda, marthamtderrek carbo. [place] plan built and routed for signature. Waiting for auth Patient will need to sign consent. Nurse education 07/19/23- will need B12 injection. Hep B labs 07/18/23. Will need to confirm patient started folic acid. Per order, patient to start once whole brain radiation at [facility] is complete. documented in this encounter Plan of Treatment Upcoming Encounters Date Type Department Care Team (Late st Contact Info) Description 01/09/2024 9:10 AM EDT Office Visit Neurology, [place] [address] [place] [address] Alyssa Reich DO [address] [place], [place] [phone] Health Maintenance Due Date Last Done Comments DISCUSS TOBACCO CESSATION (REFER TO SMARTSET #3317) 1960 COVID-19 Vaccine (#1) 01/23/1965 Pneumococcal Vaccine: [...] this encounter Medical Devices Implanted Type Area Auto Design Checker Device Identifier Shelf Expiration Date Model / Serial / Lot Screw 1.5x4mm Sd Un3 - [id number] Implanted:Qty : 20 on 06/05/2023 by Peter Omalley MD at [facility] Left: Head ANURADHA : CRANIOMAXILLOFACIAL [id number] / / documented as of this encounter [...] Advance Directives occurred with: Patient Care Teams Party Plan Sales Agent Relationship Specialty Start Date End Date Kenrick Gallo MD [address] [place] [address] PCP - General Internal Medicine 06/20/23 documented as of this encounter
--- OUTSIDE RECORDS SUMMARY | 2023-09-10 04:56 | External Medical Summary | Summary of Care ---
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) Malignant neoplasm of left lung, unspecified part of lung (HCC) Encounter for antineoplastic chemotherapy Bradley Amaya MD [address] [place] [address] Anc Hem/Onc [address] [address] Referral ID Status Reason Start Date Expiration Date V isits Requested Visits Authorized [id number] Pending Review 07/18/2023 [id number] Encounter Details Date Type Department Care Team (Latest Contact Info) Description 07/19/2023 12:00 PM EST Immunization/ Injection Hematology/Oncology Treatment, [place] [address] [place] [address] Nurse, Med [address] [place] [address] Metastasis to brain (HCC)*; Metastasis to mediastinal [...] mouth at bedtime. 0 01/15/2023 Active Tiotropium [place] Monohydrate 2.5 MCG/ACT Inhalation Aerosol Solution (Spiriva [...] as of this encounter Nursing Notes * Lizzy Roque LPN - 07/19/2023 2:13 PM EST Pt arrived for Nurse visit (see notes) and vitamin B12 injection. Administered in L deltoid. Pt tolerated well. Pt discharged in stable condition. documented in this encounter Plan of Treatment Upcoming Encounters Date Type Department Care Team (Late st Contact Info) Description 01/09/2024 9:10 AM EDT Office Visit Neurology, [place] [address] [place] [address] Alyssa Reich, [address] [place] [address] Health Maintenance Due Date Last Done Comments DISCUSS TOBACCO CESSATION (REFER TO SMARTSET #9310) 1960 COVID-19 Vaccine (#1) 01/23/1965 Pneumococcal Vaccine: [...] this encounter Medical Devices Implanted Type Area Movable Bulkhead Installer Device Identifier Shelf Expiration Date Model / Serial / Lot Screw 1.5x4mm Sd Un3 - [id number] Implanted:Qty : 20 on 06/05/2023 by Peter Omalley MD at [place] [facility] Left: Head ANURADHA : CRANIOMAXILLOFACIAL [id number] / / documented as of this encounter Visit Diagnoses Diagnosis 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 Malignant neoplasm of left lung, unspecified part of lung (HCC) Encounter for antineoplastic chemotherapy documented in this encounter Administered Medications Inactive Administered Medications - up to 3 most recent administrations Medication Order MAR Action Action Date Dose Rate Site vitamin b-12 (Cyanocobalamin) inj 1,000 mcg 1,000 mcg, Intramuscular, ONCE, On Sat07/19/23 at 1330, For 1 dose Given 07/19/2023 12:20 PM EST 1,000 mcg Deltoid Left Upper documented in this encounter Advance Directives Latest [...] Advance Directives occurred with: Patient Care Teams Furnace Operator Oil Or Gas Relationship Specialty Start Date End Date Kenrick Gallo MD [address] [place] [address] PCP - General Internal Medicine 06/20/23 documented as of this encounter
--- OUTSIDE RECORDS SUMMARY | 2023-09-10 04:56 | External Medical Summary | Summary of Care ---
Author Name Unknown Organization [facility] Address [address] [place] [address] Phone [phone] Care Team Providers Care Rough Rib Grader Name Role Phone Kenrick Gallo MD Primary Care Provider Reason for Visit * Reason Onset Date Comments Precert Future 07/18/2023 martha Chowdarymtderrek , carboplatin Encounter Details Date Type Department Care Team ([facility] st Contact Info) Description 07/18/2023 Telephone Hematology/Oncology Treatment, [place] [address] [facility] [place] [address] Bradley Amaya MD [address] [place] [address] Precert Future (Keytruda, alimta, carbopla... Allergies No known active allergiesdocumented as of this encounter (statuses as of 07/18/2023) Medications Medication Sig Dispensed Refills Start Date [...] mouth at bedtime. 0 01/15/2023 Active Tiotropium [place] Monohydrate 2.5 MCG/ACT Inhalation Aerosol Solution (Spiriva [...] as of this encounter (statuses as of 07/18/2023) Active Problems Problem Noted Date Diagnosed Date Encounter for antineoplastic chemotherapy 2022 Malignant neoplasm [...] as of this encounter (statuses as of 07/18/2023) Immunizations Name Administration Dates Next Due TD [...] 07/18/2023 5:08 PM EST Order received for martha chowdarymtderrek carbo. [place] plan built and routed for signature. Waiting for auth Patient will need to sign consent. Nurse education 07/19/23- will need B12 injection. Hep B labs 07/18/23. Will need to confirm patient started folic acid. documented in this encounter Plan of Treatment Upcoming Encounters Date Type Department Care Team (Late st Contact Info) Description 07/19/2023 11:00 AM EST Nurse Only Hematology/Oncology [place] [address] [place] [address] [place] Nurse Hem Onc [facility] [address] [facility] [place] [address] 01/09/2024 9:10 AM EDT [facility] [address] [place] [address] Alyssa Reich DO [address] [place], [place] [phone] Health Maintenance Due Date Last Done Comments DISCUSS TOBACCO CESSATION (REFER TO SMARTSET #8071) 1960 COVID-19 Vaccine (#1) 1960 Pneumococcal Vaccine: Pediatrics (0 to 5 Years) and At-Risk Patients (6 to 64 Years) (1 - PCV) 01/23/1966 Depression Screening 1972 HIV Screening 01/23/1975 Albumin/Creatinine Ratio 01/23/1978 Alpha-1 Antitrypsin 01/23/1978 DTaP,Tdap,and Td Vaccines (1 - Tdap) 08/06/2000 08/05/2000 Colonoscopy 01/23/2005 Sigmoidoscopy 01/23/2005 LUNG CANCER SCREENING - USE SMARTSET [id number] 01/23/2010 Zoster Vaccines (1 of 2) 01/23/2010 *COPD SEVERITY VERIFIED BY PFT 12/08/2016 Fecal [...] this encounter Medical Devices Implanted Type Area Cnc Programmer Device Identifier Shelf Expiration Date Model / Serial / Lot Screw 1.5x4mm Sd Un3 - [id number] Implanted:Qty : 20 on 06/05/2023 by Peter Omalley MD at [place] [facility] Left: Head ANURADHA : CRANIOMAXILLOFACIAL [id number] / / documented as of this encounter [...] Advance Directives occurred with: Patient Care Teams Rough Rib Grader Relationship Specialty Start Date End Date Kenrick Gallo MD [address] [place] [address] PCP - General Internal Medicine 06/20/23 documented as of this encounter
--- OUTSIDE RECORDS SUMMARY | 2023-09-10 04:56 | External Medical Summary | Summary of Care ---
Author Name Unknown Organization [facility] Address [address] [place] [address] Phone [phone] Care Team Providers Care Manager Review Name Role Phone Kenrick Gallo MD Primary Care Provider Reason for Visit * Reason Onset Date Comments Precert Future 07/19/2023 Monoferric Encounter Details Date Type Department Care Team ([facility] st Contact Info) Description 07/19/2023 Telephone Hematology/Oncology [facility] [place] [address] [place] [address] Bradley Amaya MD [address] [place] [address] Precert Future (Monoferric/) Allergies No known active [...] mouth at bedtime. 0 01/15/2023 Active Tiotropium [place] Monohydrate 2.5 MCG/ACT Inhalation Aerosol Solution (Spiriva [...] Quesada RN - 07/19/2023 12:20 PM EST [place] plan built for Monoferric. Will await auth [...] 01/09/2024 9:10 AM EDT Office Visit Neurology, [place] [address] [place] [phone] Alyssa Reich, [address] [place] [address] Health Maintenance Due Date Last Done Comments DISCUSS TOBACCO CESSATION (REFER TO SMARTSET #8201) 1960 COVID-19 Vaccine (#1) 01/23/1965 Pneumococcal Vaccine: [...] FOR COPD 06/05/2024 06/05/2023 GFR 07/18/2024 07/18/2023, 1108/2022, 06/04/2023, Additional history exists Cologuard 11/20/2024 11/20/2021, [...] encounter Medical Devices Implanted Type Area Food Service Utility Worker Device Identifier Shelf Expiration Date Model / Serial / Lot Screw 1.5x4mm Sd Un3 - [id number] Implanted:Qty : 20 on 06/05/2023 by Peter Omalley MD at [facility] Left: Head ANURADHA : CRANIOMAXILLOFACIAL [id number] / / documented as of this encounter [...] Advance Directives occurred with: Patient Care Teams Manager Review Relationship Specialty Start Date End Date Kenrick Gallo MD [address] [place] [address] PCP - General Internal Medicine 06/20/23 documented as of this encounter
--- OUTSIDE RECORDS SUMMARY | 2023-09-10 04:56 | External Medical Summary | Summary of Care ---
Author Name Unknown Organization [facility] Address [address] [place] [address] Phone [phone] Care Team Providers Care Detacker Name Role Phone Kenrick Gallo MD Primary Care Provider Encounter Details Date Type Department Care Team (Late st Contact Info) Description 07/19/2023 Telephone Hematology/Oncology [facility] [address] [place] [address] Bradley Amaya MD [address] [facility] [address] Allergies No known active allergiesdocumented as of [...] mouth at bedtime. 0 01/15/2023 Active Tiotropium [place] Monohydrate 2.5 MCG/ACT Inhalation Aerosol Solution (Spiriva [...] encounter Miscellaneous Notes * Telephone Encounter - Paulie Quesada RN - 07/19/2023 12:20 PM EST [place] plan built for Monoferric. Will await auth [...] 01/09/2024 9:10 AM EDT Office Visit Neurology, [place] [address] [place] [phone] Alyssa Reich DO [address] [place] [address] Health Maintenance Due Date Last Done Comments DISCUSS TOBACCO CESSATION (REFER TO SMARTSET #6173) 1960 COVID-19 Vaccine (#1) 01/23/1965 Pneumococcal Vaccine: [...] this encounter Medical Devices Implanted Type Area Bullet Slugs Inspector Device Identifier Shelf Expiration Date Model / Serial / Lot Screw 1.5x4mm Sd Un3 - [id number] Implanted:Qty : 20 on 06/05/2023 by Peter Omalley MD at [facility] Left: Head ANURADHA : CRANIOMAXILLOFACIAL [id number] / / documented as of this encounter [...] Advance Directives occurred with: Patient Care Teams Detacker Relationship Specialty Start Date End Date Kenrick Gallo MD [address] [place] [place] [address] PCP - General Internal Medicine 06/20/23 documented as of this encounter
--- OUTSIDE RECORDS SUMMARY | 2023-09-10 04:56 | External Medical Summary | Summary of Care ---
Author Name Unknown Organization [facility] Address [address] [place] [address] Phone [phone] Care Team Providers Care Motor Vehicle Field Representative Name Role Phone Kenrick Gallo MD Primary Care Provider Encounter Details Date Type Department Care Team (Late st Contact Info) Description 07/19/2023 Orders Only Hematology/Oncology [facility] Mariana [place] [address] [place] [address] Bradley Amaya MD [address] [place] [facility] [place] [address] Malignant neoplasm of left lung, unspecified part of lung (HCC)*; Metastasis to mediastinal lymph node (HCC); Metastasis to brain (HCC); Other iron deficiency anemia Allergies No known [...] mouth at bedtime. 0 01/15/2023 Active Tiotropium [place] Monohydrate 2.5 MCG/ACT Inhalation Aerosol Solution (Spiriva [...] as of this encounter Progress Notes * Bradley Amaya MD - 07/19/2023 9:43 AM EST Blood workup done on 07/18/2023: -folic acid--> 2.2, [...] about 1 month after the IV iron therapy. documented in this encounter Plan of Treatment Upcoming Encounters Date Type Department Care Team (Late st Contact Info) Description 07/19/2023 11:00 AM EST Nurse Only Hematology/Oncology [facility] [address] [place] [address] Mar[place], Nurse Hem Onc [place] [address] [place] [address] 07/19/2023 12:00 PM EST Immunization/Injec tion Hematology/Oncology Treatment, [place] [address] [place] [address] Nurse, Med [address] [place] [address] 01/09/2024 9:10 AM EDT Office Visit [place], [place] [address] [place] [phone] Alyssa Reich, [address] [place] [address] Health Maintenance Due Date Last Done Comments DISCUSS TOBACCO CESSATION (REFER TO SMARTSET #7983) 1960 COVID-19 Vaccine (#1) 01/23/1965 Pneumococcal Vaccine: [...] this encounter Medical Devices Implanted Type Area Hematology Technician Device Identifier Shelf Expiration Date Model / Serial / Lot Screw 1.5x4mm Sd Un3 - [id number] Implanted:Qty : 20 on 06/05/2023 by Peter Omalley MD at OR [facility] Left: Head ANURADHA : CRANIOMAXILLOFACIAL [id number] / / documented as of this encounter Visit Diagnoses Diagnosis Malignant neoplasm of left lung, unspecified part of lung (HCC)- Primary 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
--- OUTSIDE RECORDS SUMMARY | 2023-09-10 04:56 | External Medical Summary | Summary of Care ---
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 [facility] Role Elastic Attacher Chainstitch Referring Reason: Coordinate Cancer Resources Comments Is patient being transitioned from [facility] to Complex Case Management? No Patient requesting assistance with transportation needs. Reason for Visit * Reason Onset Date Comments Referral 07/19/2023 work order sorting clerk Encounter Details Date Type Department Care Team ([facility] Contact Info) Description 07/19/2023 Telephone Hematology/Oncology Treatment, [place] [address] [place] [address] Bradley Am[facility] [address] [facility] [address] Referral (work order sorting clerk) Allergies No known active allergiesdocumented as of [...] mouth at bedtime. 0 01/15/2023 Active Tiotropium [place] Monohydrate 2.5 MCG/ACT Inhalation Aerosol Solution (Spiriva [...] Encounter - Monica Loco RN - 07/19/2023 12:30 PM EST Patient requesting assistance with transportation needs- states that there was someone from [employer] who called her about this, but they were going to follow up with her and never did. She is not sure who it was or how to reach them. She has tried looking into options herself but is overwhelmed and "hasn't gotten anywhere". 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) Ordered: 07/19/2023 Health Maintenance Due Date Last Done Comments DISCUSS TOBACCO CESSATION (REFER TO SMARTSET #6876) 1960 COVID-19 Vaccine (#1) 01/23/1965 Pneumococcal Vaccine: [...] this encounter Medical Devices Implanted Type Area Transit Mixer Operator Device Identifier Shelf Expiration Date Model / Serial / Lot Screw 1.5x4mm Sd Un3 - [id number] Implanted:Qty : 20 on 06/05/2023 by Peter Omalley MD at [facility] Left: Head ANURADHA : CRANIOMAXILLOFACIAL [id number] / / documented as of this encounter Visit Diagnoses Diagnosis Malignant neoplasm of left lung (HCC)- Primary Metastasis to mediastinal lymph [...] Advance Directives occurred with: Patient Care Teams Food Service Counter Clerk Relationship Specialty Start Date End Date Kenrick Gallo MD [address] [facility] [place] [address] PCP - General Internal Medicine 06/20/23 documented as of this encounter
--- OUTSIDE RECORDS SUMMARY | 2023-09-10 04:56 | External Medical Summary | Summary of Care ---
Author Name Unknown Organization [facility] Address [address] [place] [address] Phone [phone] Care Team Providers Care Software Maintenance Engineer Name Role Phone Kenrick Gallo MD Primary Care Provider Reason for Visit * Reason Onset Date Comments Precert Future 07/18/2023 martha Rowellmtderrek , carboplatin Encounter Details Date Type Department Care Team ([facility] st Contact Info) Description 07/18/2023 Telephone Hematology/Oncology Treatment, [place] [address] [place] [address] Bradley Amaya MD [address] [place] [address] Precert Future (Keytruda, alimta, carbopla... Allergies No [...] mouth at bedtime. 0 01/15/2023 Active Tiotropium [place] Monohydrate 2.5 MCG/ACT Inhalation Aerosol Solution (Spiriva [...] EST Order received for ricarda, marthamtderrek carbo. [place] plan built and routed for signature. Waiting for auth Patient will need to sign consent. Nurse education 07/19/23- will need B12 injection. Hep B labs 07/18/23. Will need to confirm patient started folic acid. Per order, patient to start once whole brain radiation at [facility] is complete. documented in this encounter Plan of Treatment Upcoming Encounters Date Type Department Care Team (Late st Contact Info) Description 01/09/2024 9:10 AM EDT Office Visit Neurology, [place] [address] [place] [address] Alyssa Reich DO [address] [place], [place] [phone] Health Maintenance Due Date Last Done Comments DISCUSS TOBACCO CESSATION (REFER TO SMARTSET #4026) 1960 COVID-19 Vaccine (#1) 01/23/1965 Pneumococcal Vaccine: [...] this encounter Medical Devices Implanted Type Area Low Voltage Technician Device Identifier Shelf Expiration Date Model / Serial / Lot Screw 1.5x4mm Sd Un3 - [id number] Implanted:Qty : 20 on 06/05/2023 by Peter Omalley MD at [facility] Left: Head ANURADHA : CRANIOMAXILLOFACIAL [id number] / / documented as of this encounter [...] Advance Directives occurred with: Patient Care Teams Software Maintenance Engineer Relationship Specialty Start Date End Date Kenrick Gallo MD [address] [place] [place] [address] PCP - General Internal Medicine 06/20/23 documented as of this encounter
--- OUTSIDE RECORDS SUMMARY | 2023-09-10 04:56 | External Medical Summary | Summary of Care ---
Author Name Unknown Organization [facility] Address [address] [place] [address] Phone [phone] Care Team Providers Care Clerical Adviser Name Role Phone Kenrick Gallo MD Primary Care Provider Reason for Visit * Reason Onset Date Comments Medication Refill 07/19/2023 Encounter Details Date Type Department Care Team (Late st Contact Info) Description 07/19/2023 Refill Hematology/Oncology Treatment, [place] [address] [place] [address] Bradley Amaya MD [address] [place] [address] Malignant neoplasm of left lung (HCC)*; Metastasis to mediastinal lymph node [...] mouth at bedtime. 0 01/15/2023 Active Tiotropium [place] Monohydrate 2.5 MCG/ACT Inhalation Aerosol Solution (Spiriva [...] 34 Smokeless Tobacco: Never Comments:1pkg per day, depen ds on stress started age 14 Alcohol [...] encounter Miscellaneous Notes * Telephone Encounter - Bradley Amaya MD - 07/19/2023 1:14 PM EST E-prescribed Ativan Bradley Amaya MD Hem/Onc * Telephone Encounter - Monica Loco RN - 07/19/2023 12:24 PM EST Patient requesting something for anxiety. States that [facility] rad/onc said that they would call something in for her, but nothing was. Called [facility] to confirm that they did not get a prescription for a medication for anxiety. Patient does have rx for hydroxyzine. Dr Amaya: would you want to prescribe anything for anxiety? PDMP reviewed. Patient not found/ does not have a record. documented in this encounter Plan of Treatment Upcoming Encounters Date Type Department Care Team (Late st Contact Info) Description 01/09/2024 9:10 AM EDT Office Visit Neurology, [place] [address] [place] [phone] [place] Alyssa Rosana, [address] [place] [address] Health Maintenance Due Date Last Done Comments DISCUSS TOBACCO CESSATION (REFER TO SMARTSET #7225) 1960 COVID-19 Vaccine (#1) 01/23/1965 Pneumococcal Vaccine: [...] this encounter Medical Devices Implanted Type Area Dado Operator Device Identifier Shelf Expiration Date Model / Serial / Lot Screw 1.5x4mm Sd Un3 - [id number] Implanted:Qty : 20 on 06/05/2023 by Peter Omalley MD at OR [facility] Left: Head ANURADHA : CRANIOMAXILLOFACIAL [id number] / / documented as of this encounter [...] Advance Directives occurred with: Patient Care Teams Clerical Adviser Relationship Specialty Start Date End Date Kenrick Gallo MD [address] [place] [address] PCP - General Internal Medicine 06/20/23 documented as of this encounter
--- OUTSIDE RECORDS SUMMARY | 2023-09-10 04:56 | External Medical Summary | Summary of Care ---
Author Name Unknown Organization [facility] Address [address] [place] [address] Phone [phone] Care Team Providers Care Drug And Alcohol Counsellor Name Role Phone eKnrick Gallo MD Primary Care Provider Encounter Details Date Type Department Care Team (Late st Contact Info) Description 07/18/2023 Orders Only Hematology/Oncology [place] [address] [facility] [place] [address] Bradley Amaya MD [address] [place] [facility] [place] [address] Malignant neoplasm of left lung, unspecified part of lung (HCC)*; Metastasis to mediastinal lymph node (HCC); Metastasis to brain (HCC); Anemia, unspecified type Allergies No known active allergiesdocumented as of [...] mouth at bedtime. 0 01/15/2023 Active Tiotropium [place] Monohydrate 2.5 MCG/ACT Inhalation Aerosol Solution (Spiriva [...] Progress Notes * Bradley Amaya MD - 07/18/2023 5:50 PM EST Blood workup done on 07/18/2023: - BUN/Creat: 5/0.7, normal LFT, calcium 9.7 - WBC 12,600, H&H of 9.2/30.7, platelet count of 487,000, MCV 76. Overall normal kidney and liver functions, anemia noted.her hemoglobin level was around 8.3 earlierin June 2000 quarter, now it is around 9.2 g/dL. Will check B12, folic acid ferritin, iron profile, LDH, retic count for further evaluation of the anemia.(Ordered, add on). documented in this encounter Plan of Treatment Upcoming Encounters Date Type Department Care Team (Late st Contact Info) Description 07/19/2023 11:00 AM EST Nurse Only Hematology/Oncology [place] [facility] [place] [address] [place] [address] Mariana, Nurse Hem Onc 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) Anemia, unspecified type Expected: 07/18/2023, Expires: 07/18/2024 IRON SCREEN, INCLUDING TIBC Lab Routine Malignant neoplasm of left lung, unspecified part of lung (HCC) 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) Anemia, unspecified type Expected: 07/18/2023, Expires: 07/18/2024 FERRITIN Lab Routine Malignant neoplasm of left lung, unspecified part of lung (HCC) 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) Anemia, unspecified type Expected: 07/18/2023, Expires: 07/18/2024 LD Lab Routine Malignant neoplasm of left lung, unspecified part of lung (HCC) 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) Anemia, unspecified type Expected: 07/18/2023, Expires: 07/18/2024 RETICULOCYTE PANEL Lab Routine Malignant neoplasm of left lung, unspecified part of lung (HCC) 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) Anemia, unspecified type Expected: 07/18/2023, Expires: 07/18/2024 Health Maintenance Due Date Last Done Comments DISCUSS TOBACCO CESSATION (REFER TO SMARTSET #8725) 1960 COVID-19 Vaccine (#1) 1960 Pneumococcal Vaccine: Pediatrics (0 to 5 Years) and At-Risk Patients (6 to 64 Years) (1 - PCV) 01/23/1966 Depression Screening 1972 HIV Screening 01/23/1975 Albumin/Creatinine Ratio 01/23/1978 Alpha-1 Antitrypsin 01/23/1978 DTaP,Tdap,and Td Vaccines (1 - Tdap) 08/06/2000 08/05/2000 Colonoscopy 01/23/2005 Sigmoidoscopy 01/23/2005 LUNG CANCER SCREENING - USE SMARTSET [id number] 01/23/2010 Zoster Vaccines (1 of 2) 01/23/2010 [...] this encounter Medical Devices Implanted Type Area Parole Director Device Identifier Shelf Expiration Date Model / Serial / Lot Screw 1.5x4mm Sd Un3 - [id number] Implanted:Qty : 20 on 06/05/2023 by Peter Omalley MD at [facility] Left: Head ANURADHA : CRANIOMAXILLOFACIAL [id number] / / documented as of this encounter Visit Diagnoses Diagnosis Malignant neoplasm of left lung, unspecified part of lung (HCC)- Primary 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
--- OUTSIDE RECORDS SUMMARY | 2023-09-10 04:56 | External Medical Summary | Summary of Care ---
Author Name Unknown Organization [facility] Address [address] [place] [address] Phone [phone] Care Team Providers Care Eyeglass Inspector Name Role Phone Kenrick Gallo MD Primary Care Provider Reason for Visit * Reason Onset Date Comments Precert Future 07/18/2023 martha Chowdarymtderrek , carboplatin Encounter Details Date Type Department Care Team ([facility] st Contact Info) Description 07/18/2023 Telephone Hematology/Oncology Treatment, [place] [address] [place] [address] Bradley Amaya MD [address] [place] [address] Precert Future (Keytruda, alimta, carbopla... Allergies No [...] mouth at bedtime. 0 01/15/2023 Active Tiotropium [place] Monohydrate 2.5 MCG/ACT Inhalation Aerosol Solution (Spiriva [...] EST Order received for shawna chowdary carbo. [place] plan built and routed for signature. Waiting for auth Patient will need to sign consent. Nurse education 07/19/23- will need B12 injection. Hep B labs 07/18/23. Will need to confirm patient started folic acid. Per order, patient to start once whole brain radiation at [facility] is complete. documented in this encounter Plan of Treatment Upcoming Encounters Date Type Department Care Team (Late st Contact Info) Description 07/19/2023 12:00 PM EST Immunization/Injec tion Hematology/Oncology Treatment, [place] [address] [place] [address] Nurse, Med [address] [facility] [place] [address] 01/09/2024 9:10 AM EDT Office Visit Neurology, [place] [address] [facility] [place] [phone] Alyssa Reich DO [address] [place] [address] Health Maintenance Due Date Last Done Comments DISCUSS TOBACCO CESSATION (REFER TO SMARTSET #3021) 1960 COVID-19 Vaccine (#1) 01/23/1965 Pneumococcal Vaccine: [...] this encounter Medical Devices Implanted Type Area Highballer Device Identifier Shelf Expiration Date Model / Serial / Lot Screw 1.5x4mm Sd Un3 - [id number] Implanted:Qty : 20 on 06/05/2023 by Peter Omalley MD at [place] [facility] Left: Head ANURADHA : CRANIOMAXILLOFACIAL [id number] / / documented as of this encounter [...] Advance Directives occurred with: Patient Care Teams Eyeglass Inspector Relationship Specialty Start Date End Date Kenrick Gallo MD [address] [place] [address] PCP - General Internal Medicine 06/20/23 documented as of this encounter
--- OUTSIDE RECORDS SUMMARY | 2023-09-10 04:56 | External Medical Summary | Summary of Care ---
Author Name Unknown Organization [facility] Address [address] [place] [address] Phone [phone] Care Team Providers Care Drug Purchaser Name Role Phone Kenrick Gallo MD Primary Care Provider Reason for Visit * Reason Onset Date Comments Precert Future 07/19/2023 Monoferric Encounter Details Date Type Department Care Team ([facility] st Contact Info) Description 07/19/2023 Telephone Hematology/Oncology [facility] [place] [address] [place] [id number] Bradley Amaya MD [address] [place] [address] Precert Future (Monoferric/) Allergies No known active [...] mouth at bedtime. 0 01/15/2023 Active Tiotropium [place] Monohydrate 2.5 MCG/ACT Inhalation Aerosol Solution (Spiriva [...] Quesada RN - 07/19/2023 12:20 PM EST Malone plan built for Monoferric. Will await auth [...] 01/09/2024 9:10 AM EDT Office Visit Neurology, [place] [address] [place] [id number] Alyssa Reich, [address] [place] [address] Health Maintenance Due Date Last Done Comments DISCUSS TOBACCO CESSATION (REFER TO SMARTSET #[id number]) 1960 COVID-19 Vaccine (#1) 01/23/1965 Pneumococcal Vaccine: [...] this encounter Medical Devices Implanted Type Area Database Software Technician Device Identifier Shelf Expiration Date Model / Serial / Lot Screw 1.5x4mm Sd Un3 - [id number] Implanted:Qty : 20 on 06/05/2023 by Peter Omalley MD at [facility] Left: Head ANURADHA : CRANIOMAXILLOFACIAL [id number] / / documented as of this encounter [...] Directives occurred with: Patient Care Teams Drug Purchaser Relationship Specialty Start Date End Date Kenrick Gallo MD [address] [place] [place] [address] PCP - General Internal Medicine 06/20/23 documented as of this encounter
--- OUTSIDE RECORDS SUMMARY | 2023-09-10 04:57 | External Medical Summary ---
Author Name Unknown Address Unknown Organization [id number][facility] [place] [address] Laboratory Report Ordering Provider Test Date Status RYNE BRISCOE 07/18/2023 10:37:33 Final Observation Date Value Abnormality Reference (Units ) Status WBC, Total 07/18/2023 10:37:33 12.61 Above high normal 4 .00-10.80 (K/uL) Final RBC 07/18/2023 10:37:33 4.03 3.85-5.15 (M/uL) Final Hemoglobin 07/18/2023 10:37:33 9.2 Below low normal 12 .0-15.3 (g/dL) Final HCT 07/18/2023 10:37:33 30.7 Below low normal 36. 0-45.2 (%) Final MCV 07/18/2023 10:37:33 76.2 81.5-97.5 (fL) Final MCH 07/18/2023 10:37:33 22.8 27.0-34.0 (pg) Final MCHC 07/18/2023 10:37:33 30.0 32.0-36.0 (g/dL) Final RDW 07/18/2023 10:37:33 17.6 11.5-15.5 (%) Final Platelets 07/18/2023 10:37:33 487 Above high normal 14 0-400 (K/uL) Final MPV 07/18/2023 10:37:33 8.9 6.6-11.1 ( fL) Final Performing Location [facility] [place] [address]
--- OUTSIDE RECORDS SUMMARY | 2023-09-10 04:57 | External Medical Summary ---
Author Name Unknown Address Unknown Organization [id number]:[facility] [place] [address] [facility] [place] [address] Laboratory Report Ordering Provider Test Date Status RYNE BRISCOE 07/18/2023 10:37:33 Final Observation Date Value Abnormality Reference (Units) Status Hepatitis B virus surface Ab [Units/volume] in Serum or Plasma by Immunoassay 07/18/2023 10:37:33 <3.5 (mIU/mL) Final Hepatitis B virus surface Ab [Presence] in Serum by Immunoassay 07/18/2023 10:37:33 Negative Final HEPATITIS B SURFACE ANTIBODY, INTERPRETATION 07/18/2023 10:37:33 NOT immune to Hepatitis B Virus Final POSITIVE: >=11.5 mIU/mL
INDETERMINATE: 8.5-<11.5 mIU/mL
NEGATIVE: <8.5 mIU/mL Performing [place] [facility] [place] [facility] [place] [address]
--- OUTSIDE RECORDS SUMMARY | 2023-09-10 04:57 | External Medical Summary ---
Author Name Unknown Address Unknown Organization [id number]:[facility] [place] [address] [facility] [place] [address] Laboratory Report Ordering Provider Test Date Status RYNE BRISCOE 07/18/2023 10:37:33 Final Observation Date Value Abnormality Reference (Units ) Status Hepatitis B virus core Ab [Presence] in Serum 07/18/2023 10:37:33 Negative Negative Final Performing Location [facility] [place] [address] [place] [address]
--- OUTSIDE RECORDS SUMMARY | 2023-09-10 04:57 | External Medical Summary ---
Author Name Unknown Address Unknown Organization [id number]:[facility] - [address] [place] [address] Laboratory Report Ordering Provider Test Date Status LUIS FELIPERYNE 07/18/2023 10:37:33 Final Observation Date Value Abnormality Reference (Units ) Status Folic Acid 07/18/2023 10:37:33 2.2 Below low normal >4 .5 (ng/mL) Final Performing Location [facility] - [address] [place] [address]
--- OUTSIDE RECORDS SUMMARY | 2023-09-10 04:57 | External Medical Summary ---
Author Name Unknown Address Unknown Organization [id number]:[facility] - [address] [place] [address] Laboratory Report Ordering Provider Test Date Status NEYDA BRISCOEEL 07/18/2023 10:37:33 Final Observation Date Value Abnormality Reference (Units ) Status Hep B surface Ag 07/18/2023 10:37:33 Negative Neg ative Final Performing Location [facility] - [address] [place] [address]
--- OUTSIDE RECORDS SUMMARY | 2023-09-10 04:57 | External Medical Summary | Summary of Care ---
Author Name Unknown Organization [facility] Address [address] [place] [address] Phone [phone] Care Team Providers Care Transmitter Supervisor Name Role Phone Kenrick Gallo MD Primary Care Provider Reason for Visit * Reason Comments NEW PATIENT Encounter Details Date Type Department Care Team (Late st Contact Info) Description 07/18/2023 9:45 AM EST Office Visit Hematology/Oncology [address] [place] [address] [facility] [place] [address] Bradley Amaya MD [address] [facility] [place] [address] Malignant neoplasm of left lung, unspecified part [...] 06/10/2023 Active Ondansetron HCl 8 MG Oral TabletIndications :Malignant neoplasm of left lung, unspecified part of lung (HCC),Metastasis to mediastinal lymph node (HCC),Metastasis to brain (HCC) Take 1 Tablet by mouth every 8 hours as needed for Nausea. 30 Tablet 3 07/18/2023 Active Prochlorperazine Maleate 10 MG Oral Tablet (Compazine)Indica tions:Malignant neoplasm of left lung, unspecified part of lung (HCC),Metastasis to mediastinal lymph node (HCC),Metastasis to brain (HCC) Take 1 Tablet by mouth every 6 hours as needed for Nausea. 60 Tablet 2 07/18/2023 Active dexAMETHasone 4 MG Oral TabletIndications :Malignant neoplasm of left lung, unspecified part of lung (HCC),Metastasis to mediastinal lymph node (HCC),Metastasis to brain (HCC) One tablet twice a day for 3 days only, starting one day before the chemotherapy. 36 Tablet 1 07/18/2023 Active Folic Acid 1 MG Oral TabletIndications :Malignant neoplasm of left lung, unspecified part of lung (HCC),Metastasis to mediastinal lymph node (HCC),Metastasis to brain (HCC) Take 1 Tablet by mouth in the morning. 30 Tablet 5 07/18/2023 Active dexAMETHasone 4 MG Oral Tablet Take 1 tablet by mouth twice daily for 2 days followed by a half-tablet twice daily for 2 days followed by a half-tablet once daily for 2 days and then stop. 6 Tablet 0 06/10/2023 07/18/2023 Discontinue d(Refill) documented as of this encounter (statuses as of 07/18/2023) Active Problems Problem Noted Date Diagnosed Date Focal seizures 06/04/2023 Intracranial mass 06/04/2023 RUE [...] Sign Reading Time Taken Comments Blood Pressure 110/77 07/18/2023 9:30 AM EST Pulse 106 07/18/2023 9:30 AM EST Temperature 36.7 C (98 F) 07/18/2023 9:30 AM EST Respiratory Rate - - Oxygen Saturation 93% 07/18/2023 9:30 AM EST Inhaled Oxygen Concentration - - Weight 69.3 kg (152 lb 11.2 oz) 07/18/2023 9:30 AM EST Height 167.6 cm (5' 6") 07/18/2023 9:30 AM EST Body Mass Index 24.65 07/18/2023 9:30 AM EST documented in this [...] Notes * Bradley Amaya MD - 07/18/2023 9:45 AM EST Hematology/Oncology Outpatient Consult Note [facility] [address] [place] [address] ANGELES EASON MR # [id number] :1960 63-year-old female, REASON FOR CONSULTATION: Consultation for Angeles Eason requested by Dr. Shipley for evaluation and discussion of treatment options for metastatic lung cancer involving the brain. Date of consultation:07/18/2023 DIAGNOSIS: Left lung adenocarcinoma no definite site identified in the recent imaging studies -left mediastinal lymph node involvement -left frontal lobe metastasis. S/P resection -PD-L1 55% NGS checkup: -TMB 7.57 which is low MSI stable -KRAS G12V positive - MET --> Copy number gain/amplification of MET gene is identified, copy 9.73. CURRENT TREATMENT: -Planning for systemic chemotherapy with Alimta, carboplatin and Keytruda. -Planning to start treatment once she is done with the whole-brain radiation treatment at [facility]. DIAGNOSTIC WORKUP: She came to [facility] ER on 06/01/2023 she, she was brought [...] pelvis with intravenous contrast on 06/01/2023 at [facility]: -no suspicious finding noted in the chest -no intra-abdominal mass identified, liver normal, no lymphadenopathy. -CBD dilated at 9 mm. No mass noted. No pancreatic ductal dilatation noted Brain MRI done on 06/02/2023: -1.5 x 1.3 by 1 cm left frontal lobe dural-based enhancing mass with surrounding vasogenic edema. Blood workup done while she was at [facility]: -normal WBC and normal Platelet count, mild anemia with hemoglobin around 9 g/dL -BUN/Creat: 9/0.8 -Serum iron 14, TIBC 366, iron saturation 4% -Ferritin level --> 5.2 -albumin 3.5, -Vitamin B12 186, folic acid 9.2 -TSH 0.19, free T4 0.56 -normal LFT. She was then transferred at [facility]. Repeat brain MRI on 06/04/2023 at [facility] 1. 19 x 13 x 12 [...] Hyperlipidemia -currently she is off the Decadron. INTERVAL HISTORY: She has come the clinic for the initial evaluation, accompanied by her friend in the office Her friend lives in the same apartment She has right upper extremity weakness, no new seizure, no increasing headache, some back pain present the recently, she says she had a back pain earlier which improved but recently restarted back pain after the having PET-CT scan Currently she is not on any pain medication on regular basis, no nausea, no vomiting, chronic coughpresent, shortness of breath on exertion present, no bleeding from the sites. No new GI symptoms. Weight loss noted, current weight 152 lb REVIEW OF SYSTEMS: GENERAL: About 4 to 5 lb weight loss noted, she is feeling weak and tired, weakness of the right upper extremity, no fever or chills. SKIN: No skin rash, no bruising. HEAD: No new headache, no dizziness. EYES: No recent change in the vision, no diplopia, EARS: No earache no tinnitus, NOSE: No epistaxis, No nasal discharge or stuffiness, MOUTH: No sores, no dysphagia, no hoarseness of voice, NECK: No lumps, No swelling in thyroid area. No stiffness. PULMONARY: No cough, No shortness of breath, no hemoptysis, no chest pain, No wheezing. CARDIOVASCULAR: No anginal chest pain, no PND, no orthopnea. No palpitation, no leg edema. No syncope. GASTROINTESTINAL: No abdominal pain, no nausea or vomiting. No diarrhea, No constipation. No blood in stool or black tarry stools. No abdominal distention. UROLOGIC: No burning urination. No hematuria. MUSCULOSKELETAL: Back pain present, no hip pain.. HEMATOLOGIC: No anemia, no bleeding disorder, No bruising. NEUROLOGIC: No seizures, no focal weakness, no speech difficulty, No memory disturbances. No tingling or numbness of the extremities. PSYCHIATRIC: No depression. No anxiety. No psychosis. Past Medical History: Diagnosis Date Pain in limb 1995 left arm, EMG suggested possible mild left CTS in 2001 Past Surgical History: Procedure Laterality Date CXR 2 VIEWS AP/PA & LATERAL 03/23/02+ PAH-the heart size and contour are normal the lungs are expanded and clear MICROSURGERY ADD-ON Left 06/05/2023 MICROSURGICAL SURGERY REQUIRING MICROSCOPE LISTED SEPARATELY performed by Peter Omalley MD at [facility] MRI BRAIN W WO CONTRAST 10/13/01 PAH--the [...] SUPRATENTORIAL performed [facility] STEREOTACTIC CRANIAL INTRADURAL NAVIGATION Left 06/05/2023 STEREOTACTIC CRANIAL INTRADURAL NAVIGATION performed by Peter Omalley MD at [facility] Current Outpatient Medications Medication Sig Dispense Refill [...] 1 Tablet by mouth at bedtime. Tiotropium [place] Monohydrate 2.5 MCG/ACT Inhalation Aerosol Solution (Spiriva Respimat) Inhale 2 Puffs by mouth every morning. Lisinopril 5 MG Oral Tablet (Prinivil) Take 1 Tablet by mouth daily in the morning. 30 Tablet 1 levETIRAcetam 250 MG Oral Tablet (Keppra) Take 2 Tablets by mouth in the morning and 2 Tablets before bedtime. 120 Tablet 0 dexAMETHasone 4 MG Oral Tablet Take 1 tablet by mouth twice daily for 2 days followed by a half-tablet twice daily for 2 days followed by a half-tablet once daily for 2 days and then stop. 6 Tablet 0 No current facility-administered medications for this visit. Family History Problem Relation Age of Onset Liver disease Mother Heart disease Father HF? Heart disease Brother 21 MT Social History Socioeconomic History Marital status: Spouse [...] on file Housing Stability: Not on file On Exam: BP 110/77 (BP Site: Right Arm, BP Position: Sitting, BP Cuff Size: Regular) | Pulse 106 | Temp 36.7C (98 F) | Ht 1.676 m (5' 6") | Wt 69.3 kg (152 lb 11.2 oz) | SpO2 93% | BMI 24.65 kg/m | BSA1.8 m Constitutional: Patient is alert, cooperative and oriented x 3. Well built female, Patient is in noacute distress. HEENT: No icterus, no pallor, Throat and pharynx normal. Sinuses are non-tender. Neck: Supple and without lymphadenopathy or masses. No JVD. No Palpable supraclavicular lymph nodes. Lungs: Emphysematous chest. Cardiovascular: Normal heart sounds, no murmurs.Regular rate and rhythm. Abdomen: Soft, nontender, no hepatomegaly, no splenomegaly. Bowel sounds are normal. Neurological: No gross focal neurological deficit; walks slowly by herself. Extremities: No finger clubbing, No cyanosis. No leg edema. Skin:: No skin rash. SPINE: No spinal or paraspinal tenderness. LABS: -normal LFT (06/10/2023) - WBC 12,700, H&H of 8.7/20, MCV 81, Platelet count of 102650 ( 06/08/2023). Planning to get additional blood workup today. IMAGING: As described above. ASSESSMENT AND PLAN: 63-year-old female, longstanding history of smoking present, recently presented to [facility] ER with the right upper extremity weakness and seizure, MRI showed dural-based lesion over the left frontal convexity, repeat MRI showed 2 lesions (1.9 x 1.3 x 1.2 cm left posterior frontal lobe and 1.4 x 1.41.3 cm left posterior frontal lobe), patient underwent left frontal craniotomy by Dr. Omalley at [facility], final pathology showed metastatic adenocarcinoma compatible with lung primary. Repeat follow-up brain MRI showed no residual brain lesions. Her case was discussed at [facility] multidisciplinary clinic, PET-CT scan was done following that which showed about 1 cm left paramediastinal lymph node which is metabolic active, no obvious lung primary site identified but left lung would be possible in her case. There is small uptake noted in the right proximal femur but she does not have any local pain, no corresponding definite bone lesions identified Overall stage IV disease, reviewed with them regarding overall treatment goal which have palliativeand not curative. She was seen by Dr. Giang at [facility] Radiation Oncology, that planning to start whole-brain radiation treatment on 07/22/2023. Reviewed with them regarding the PD-L1 status which is 55% as well as NGS checkup, MET copy number is 9.7 which is on the higher side. Typically 10 and above is considered significantly high. Talked to them about role of systemic chemotherapy that can be considered, I would consider for Alimta, carboplatin and Keytruda every 3 weekly, reviewed with them regarding treatment schedule side effect profile and she is in agreement for that.. E-prescribed Compazine and Zofran for the symptomatic treatment of nausea and vomiting. E-prescribed Decadron 4 mg, 1 tablet twice a day for 3 days starting 1 day before the Alimta chemotherapy Will check CBCD, comprehensive metabolic panel, hepatitis-B profile, TSH checkup today. Recent blood workup showed anemia, will review blood workup done today and decide about further workup. E-prescribed folic acid She will receive Vitamin B12 injection 1000 microgram every 9 weekly while on Alimta chemotherapy. I am planning for 3 cycles of chemotherapy and then will repeat PET-CT scan. Thanks for the consultation Dr. Bradley Amaya Hem/Onc (This note was completed using the dictation program Fluency Direct. As such, there may be misspellings word substitutions, or other variations that should not change the essence of the clinical content of this encounter note. If there is need for further clarification, please direct questions to the provider listed above.) documented in this encounter Nursing Notes * Christiano Dsouza, MED ASSIST - 07/18/2023 9:31 AM EST Patient identified by name and date of . Do you have any concerns about pain management for today's visit? No Living Will or Advance Directive for Health Care as noted on problem list. My [facility] is a way you can talk to your provider online through e-mail. Would you like to sign up? I can activate it for you? ALREADY ACTIVE BP 110/77 (BP Site: Right Arm, BP Position: Sitting, BP Cuff Size: Regular) | Pulse 106 | Temp 36.7C (98 F) | Ht 1.676 m (5' 6") | Wt 69.3 kg (152 lb 11.2 oz) | SpO2 93% | BMI 24.65 kg/m | BSA1.8 m Patient was instructed to not get up [...] 07/19/2023 11:00 AM EST Nurse Only Hematology/Oncology [facility] [place] [address] [place] [address] [place], Nurse Hem Onc [facility] [address] [place] [address] 01/09/2024 9:10 AM EDT Office Visit Neurology, [facility] [address] [place] [address] Alyssa Reich [address] [place] [address] Pending Results Name Type Priority Associated Diagnoses Date /Time HEPATITIS B SURFACE ANTIGEN Lab Routine Malignant neoplasm of left lung, unspecified part of lung (HCC) 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) 07/18/2023 10:37 AM EST HEPATITIS B SURFACE ANTIBODY Lab Routine Malignant neoplasm of left lung, unspecified part of lung (HCC) 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) 07/18/2023 10:37 AM EST HEPATITIS B CORE ANTIBODIES IGG AND IGM Lab Routine Malignant neoplasm of left lung, unspecified part of lung (HCC) 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) 07/18/2023 10:37 AM EST TSH WITH FREE T4 IF INDICATED Lab Routine Malignant neoplasm of left lung, unspecified part of lung (HCC) 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) 07/18/2023 10:37 AM EST Health Maintenance Due Date Last Done Comments DISCUSS TOBACCO CESSATION (REFER TO SMARTSET #3675) 1960 COVID-19 Vaccine (#1) 1960 Pneumococcal Vaccine: Pediatrics (0 to 5 Years) and At-Risk Patients (6 to 64 Years) (1 - PCV) 01/23/1966 Depression Screening 1972 HIV Screening 01/23/1975 Albumin/Creatinine Ratio 01/23/1978 Alpha-1 Antitrypsin 01/23/1978 DTaP,Tdap,and Td Vaccines (1 - Tdap) 08/06/2000 08/05/2000 Colonoscopy 01/23/2005 Sigmoidoscopy 01/23/2005 LUNG CANCER SCREENING - USE SMARTSET 44688 01/23/2010 Zoster Vaccines (1 of 2) 01/23/2010 [...] this encounter Medical Devices Implanted Type Area Litigation Claim Representative Device Identifier Shelf Expiration Date Model / Serial / Lot Screw 1.5x4mm Sd Un3 - [id number] Implanted:Qty : 20 on 06/05/2023 by Peter Omalley MD at [facility] Left: Head ANURADHA : CRANIOMAXILLOFACIAL [id number] / / documented as of this encounter Procedures Procedure Name Priority Date/Time Associated Diagnosis Comments DIFFERENTIAL, AUTOMATED STAT 07/18/2023 10:37 AM EST Malignant neoplasm of left lung, unspecified part of lung (HCC) 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) COMPREHENSIVE METABOLIC PANEL STAT 07/18/2023 10:37 AM EST Malignant neoplasm of left lung, unspecified part of lung (HCC) 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) CBC STAT 07/18/2023 10:37 AM EST Malignant neoplasm of left lung, unspecified part of lung (HCC) 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) CBC STAT 07/18/2023 10:37 AM EST Malignant neoplasm of left lung, unspecified part of lung (HCC) 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) documented in this encounter Results * (ABNORMAL) DIFFERENTIAL, AUTOMATED (07/18/2023 10:37 AM EST) WBC 12.61(H) 4.00 - 10.80 K/uL 07/18/2023 10:44 AM EST [facility] 56-02 Neutrophils % 61.0 40.0 - 75.0 % 07/18/2023 10:44 AM EST [facility] 56-02 Lymphocytes % 29.8 18.0 - 42.0 % 07/18/2023 10:44 AM EST [facility] 56-02 Monocytes % 7.9 1.0 - 11.0 % 07/18/2023 10:44 AM EST [facility] 56-02 Eosinophils % 1.1 0.0 - 6.0 % 07/18/2023 10:44 AM EST [facility] 56-02 Basophils % 0.2 0.0 - 2.0 % 07/18/2023 10:44 AM EST [facility] 56-02 Absolute Neutrophils 7.69 1.80 - 7.70 K/uL 07/18/2023 10:44 AM EST [facility] 56-02 Absolute Lymphocytes 3.76 1.00 - 4.80 K/ul 07/18/2023 10:44 AM EST [facility] 56-02 Absolute Monocytes 0.99 0.00 - 1.10 K/uL 07/18/2023 10:44 AM EST [facility] 56-02 Absolute Eosinophils 0.14 0.00 - 0.70 K/uL 07/18/2023 10:44 AM EST [facility] 56-02 Absolute Basophils 0.03 0.00 - 0.20 K/uL 07/18/2023 10:44 AM [facility] 56-02 Blood Venous blood specimen / Unknown Venipuncture / Unknown 07/18/2023 10:37 AM EST 07/18/2023 10:37 AM EST Bradley Amaya MD LAB BLOOD ORDERABLES [facility] [address] [place], [place] [id number] * (ABNORMAL) CBC (07/18/2023 10:37 AM EST) WBC 12.61(H) 4.00 - 10.80 K/uL 07/18/2023 10:44 AM [facility] 56- RBC 4.03 3.85 - 5.15 M/uL 07/18/2023 10:44 AM [facility] 56- HGB 9.2(L) 12.0 - 15.3 g/dL 07/18/2023 10:44 AM [facility] 56- HCT 30.7(L) 36.0 - 45.2 % 07/18/2023 10:44 AM [facility] 56- MCV 76.2 81.5 - 97.5 fL 07/18/2023 10:44 AM [facility] 56- MCH 22.8 27.0 - 34.0 pg 07/18/2023 10:44 AM [facility] 56-02 MCHC 30.0 32.0 - 36.0 g/dL 07/18/2023 10:44 AM [facility] 56- RDW 17.6 11.5 - 15.5 % 07/18/2023 10:44 AM [facility] 56- PLT 487(H) 140 - 400 K/uL 07/18/2023 10:44 AM [facility] 56- MPV 8.9 6.6 - 11.1 fL 07/18/2023 10:44 AM [facility] 56-02 Blood Venous blood specimen / Unknown Venipuncture / Unknown 07/18/2023 10:37 AM EST 07/18/2023 10:37 AM EST Bradley Amaya MD LAB BLOOD ORDERABLES [address] [place], [place] [id number] * (ABNORMAL) COMPREHENSIVE METABOLIC PANEL (07/18/2023 10:37 AM EST) BUN 5(L) 6 - 20 mg/dL 07/18/2023 11:[address] Creatinine 0.7 0.5 - 1.0 mg/dL 07/18/2023 11:[address] Estimated Glomerular Filtration Rate >90 >=60 mL/min 07/18/2023 11:[address] Comment:eGFR is calculated b ased on the CKD-EPI 2020 equation Sodium 145 135 - 146 mmol/L 07/18/2023 11:[address] Potassium 3.6 3.5 - 5.1 mmol/L 07/18/2023 11:[address] Chloride 106 98 - 107 mmol/L 07/18/2023 11:[address] CO2 28 22 - 32 mmol/L 07/18/2023 11:[address] Anion Gap 11 7 - 15 mmol/L 07/18/2023 11:[address] Glucose 105 70 - 120 mg/dL 07/18/2023 11:[address] Albumin 4.2 3.8 - 5.0 g/dL 07/18/2023 11:[address] AST 19 10 - 35 U/L 07/18/2023 11:[address] Alkaline Phosphatase 92 35 - 130 U/L 07/18/2023 11:[address] Bilirubin, Total 0.2 <=1.2 mg/dL 07/18/2023 11:[address] Calcium 9.7 8.4 - 10.2 mg/dL 07/18/2023 11:39 AM [place] [address]- Protein 6.9 6.0 - 8.3 g/dL 07/18/2023 11:39 AM EST [facility] 56-02 ALT 8(L) 10 - 35 U/L 07/18/2023 11:39 AM EST [facility] 56- Blood Venous blood specimen / Unknown Venipuncture / Unknown 07/18/2023 10:37 AM EST 07/18/2023 10:37 AM EST Bradley Amaya MD LAB BLOOD ORDERABLES [facility] 56- [address] [place] [address] documented in this encounter Visit Diagnoses Diagnosis [...] Advance Directives occurred with: Patient Care Teams Transmitter Supervisor Relationship Specialty Start Date End Date Kenrick Gallo MD [address] [place] [address] PCP - General Internal Medicine 06/20/23 documented as of this encounter
--- OUTSIDE RECORDS SUMMARY | 2023-09-10 04:57 | External Medical Summary ---
Author Name Unknown Address Unknown Organization K09:[facility] [address] [place] [address] Laboratory Report Ordering Provider Test Date Status RYNE BRISCOE 07/18/2023 10:37:33 Final Observation Date Value Abnormality Reference (Units ) Status SYNC LEUKOCYTES IN BLOOD BY AUTOMATED COUNT 07/18/2023 10:37:33 12.61 Above high normal 4.00-10.80 (K/uL) Final Segs 07/18/2023 10:37:33 61.0 40.0-75.0 (%) Final Lymphs % 07/18/2023 10:37:33 29.8 18.0-42.0 (%) Final Monos 07/18/2023 10:37:33 7.9 1.0-11.0 (%) Final Eosinophils 07/18/2023 10:37:33 1.1 0.0-6.0 (%) Final Basos 07/18/2023 10:37:33 0.2 0.0-2.0 (%) Final Absolute Segs 07/18/2023 10:37:33 7.69 1.80-7.70 (K/uL) Final Lymphs, absolute 07/18/2023 10:37:33 3.76 1.00-4.80 (K/ul) Final Monos, Abs 07/18/2023 10:37:33 0.99 0.00-1.10 (K/uL) Final Eos, Abs 07/18/2023 10:37:33 0.14 0.00-0.70 (K/uL) Final Basos, Abs 07/18/2023 10:37:33 0.03 0.00-0.20 (K/uL) Final Performing Location [facility] [address] [place] [address]
--- OUTSIDE RECORDS SUMMARY | 2023-09-10 04:57 | External Medical Summary ---
Author Name Unknown Address Unknown Organization [id number][facility] [place] [address] [facility] [address] Laboratory Report Ordering Provider Test Date Status RYNE BRISCOE 07/18/2023 10:37:33 Final Observation Date Value Abnormality Reference (Units ) Status TSH 07/18/2023 10:37:33 2.03 0.27-4.20 (uIU/mL) Final Performing Location [facility] - [address] [facility] [address]
--- OUTSIDE RECORDS SUMMARY | 2023-09-10 04:57 | External Medical Summary ---
Author Name Unknown Address Unknown Organization K01:[facility] [address] [place] [address] Laboratory Report Ordering Provider Test Date Status RYNE BRISCOE 07/18/2023 10:37:33 Final Observation Date Value Abnormality Reference (Units ) Status Vitamin B12 07/18/2023 10:37:33 [id number] (pg/mL) Final Performing Location [facility] - [address] [place] [address]
--- OUTSIDE RECORDS SUMMARY | 2023-09-10 04:57 | External Medical Summary | Summary of Care ---
Author Name Unknown Organization [facility] Address [address] [place] [address] Phone [phone] Care Team Providers Care Occupational Therapist Rehab Manager Name Role Phone Kenrick Gallo MD Primary Care Provider Reason for Visit * Reason Comments Outpatient Testing Encounter Details Date Type Department Care Team (Late st Contact Info) Description 07/18/2023 11:00 AM EST Laboratory Laboratory [facility] [address] [place] [phone] [facility] [address] [place] [address] Arrived Allergies No known active allergiesdocumented as of [...] mouth at bedtime. 0 01/15/2023 Active Tiotropium [place] Monohydrate 2.5 MCG/ACT Inhalation Aerosol Solution (Spiriva [...] 07/19/2023 11:00 AM EST Nurse Only Hematology/Oncology [facility] Mariana [place] [address] [place] [address] Mariana, Nurse Hem Onc [facility] [address] [place] [address] 01/09/2024 9:10 AM EDT Office Visit Neurology, [place] [address] [place] [address] Alyssa Reich [address], [place] [id number] Health Maintenance Due Date Last Done Comments DISCUSS TOBACCO CESSATION (REFER TO SMARTSET #5387) 1960 COVID-19 Vaccine (#1) 1960 Pneumococcal Vaccine: Pediatrics (0 to 5 Years) and At-Risk Patients (6 to 64 Years) (1 - PCV) 01/23/1966 Depression Screening 1972 HIV Screening 01/23/1975 Albumin/Creatinine Ratio 01/23/1978 Alpha-1 Antitrypsin 01/23/1978 DTaP,Tdap,and Td Vaccines (1 - Tdap) 08/06/2000 08/05/2000 Colonoscopy 01/23/2005 Sigmoidoscopy 01/23/2005 LUNG CANCER SCREENING - USE SMARTSET 43970 01/23/2010 Zoster Vaccines (1 of 2) 01/23/2010 *COPD SEVERITY VERIFIED BY PFT 12/08/2016 Fecal Occult Blood Test 05/12/2019 05/12/2018 Mammogram 03/17/2022 03/17/2021, 05/06, 11/29/2016 Influenza Vaccine (FLU shot) (#1) 2023 05/21/2014, 06/12/2013 *CXR OR CT FOR COPD EVER 06/19/2023 GFR 06/05/2024 06/05/2023, 05/07, 10/23/2001, Additional history exists O2 ASSESSMENT COMPLETED IN PAST YEAR FOR COPD 06/05/2024 06/05/2023 Cologuard 11/20/2024 11/20/2021, 03/05, 06/24/2020 Colorectal Cancer [...] this encounter Medical Devices Implanted Type Area Lock Corner Machine Operator Device Identifier Shelf Expiration Date Model / Serial / Lot Screw 1.5x4mm Sd Un3 - [id number] Implanted:Qty : 20 on 06/05/2023 by Peter Omalley MD at [facility] Left: Head ANURADHA : CRANIOMAXILLOFACIAL [id number] / / documented as of this encounter [...] Advance Directives occurred with: Patient Care Teams Occupational Therapist Rehab Manager Relationship Specialty Start Date End Date Kenrick Gallo MD [address] [facility] [place] [address] PCP - General Internal Medicine 06/20/23 documented as of this encounter
--- OUTSIDE RECORDS SUMMARY | 2023-09-10 04:57 | External Medical Summary ---
Author Name Unknown Address Unknown Organization [id number][place] [place] [address] [facility] [address] Laboratory Report Ordering Provider Test Date Status RYNE BRISCOE 07/18/2023 10:37:33 Final Observation Date Value Abnormality Reference (Units ) Status Retic, % (auto) 07/18/2023 10:37:33 1.82 0.80-1.90 (%) Final Reticulocytes, Absolute 07/18/2023 10:37:33 74.6 31.3-100.1 (K/uL) Final Reticulocyte fraction, immature 07/18/2023 10:37:33 24.7 Above high normal 2.5-20.6 (%) Final Reticulocyte HGB 07/18/2023 10:37:33 21.3 Below low normal 29.7-37.4 (pg) Final Performing Location [facility] [place] [address] [facility] [address]
--- OUTSIDE RECORDS SUMMARY | 2023-09-10 04:57 | External Medical Summary ---
Author Name Unknown Address Unknown Organization [id number]:[facility] [address] [place] [address] Laboratory Report Ordering Provider Test Date Status RYNE BRISCOE 07/18/2023 10:37:33 Final Observation Date Value Abnormality Reference (Units ) Status LDH 07/18/2023 10:37:33 188 <=250 (U/L ) Final Performing Location [facility] - [address] [place] [address]
--- OUTSIDE RECORDS SUMMARY | 2023-09-10 04:57 | External Medical Summary ---
Author Name Unknown Address Unknown Organization K09:[facility] [place] [address] [place] [address] Laboratory Report Ordering Provider Test Date Status RYNE BRISCOE 07/18/2023 10:37:33 Final Observation Date Value Abnormality Reference (Units ) Status BUN 07/18/2023 10:37:33 5 Below low normal 6-20 (mg/dL) Final Creatinine 07/18/2023 10:37:33 0.7 0.5-1.0 (mg/dL) Final Glomerular filtration rate/1.73 sq M.predicted [Volume Rate/Area] in Serum, Plasma or Blood by Creatinine-based formula (CKD-EPI) 07/18/2023 10:37:33 >90 >=60 (mL/min) Final eGFR is calculated based on the CKD-EPI 2020 equation SODIUM 07/18/2023 10:37:33 145 135-146 (m mol/L) Final Potassium 07/18/2023 10:37:33 3.6 3.5-5.1 (m mol/L) Final Cl 07/18/2023 10:37:33 106 98-107 (mm ol/L) Final CO2 07/18/2023 10:37:33 28 22-32 (mmo l/L) Final Anion gap 07/18/2023 10:37:33 11 7-15 (mmol /L) Final Glucose 07/18/2023 10:37:33 105 70-120 (mg /dL) Final Albumin 07/18/2023 10:37:33 4.2 3.8-5.0 (g /dL) Final AST (Aspartate aminotransferase) 07/18/2023 10:37:33 19 10-35 (U/L) Fin al Alk Phos 07/18/2023 10:37:33 92 35-130 (U/ L) Final Bilirubin, Total 07/18/2023 10:37:33 0.2 <=1 .2 (mg/dL) Final Calcium 07/18/2023 10:37:33 9.7 8.4-10.2 ( mg/dL) Final Protein 07/18/2023 10:37:33 6.9 6.0-8.3 (g /dL) Final ALT (Alanine aminotransferase) 07/18/2023 10:37:33 8 Below low normal 10-35 (U/L) Final Performing Location [facility] [place] [address] [place] [address]
--- OUTSIDE RECORDS SUMMARY | 2023-09-10 04:57 | External Medical Summary ---
Author Name Unknown Address Unknown Organization [id number]:[facility] [place] [address] [place] [address] Laboratory Report Ordering Provider Test Date Status RYNE BRISCOE 07/18/2023 10:37:33 Final Observation Date Value Abnormality Reference (Units ) Status Iron 07/18/2023 10:37:33 17 Below low normal 33-151 (ug/dL) Final Iron-binding capacity 07/18/2023 10:37:33 459 Above high normal 250-425 (ug/dL) Final Transferrin Sat % 07/18/2023 10:37:33 4 Below low normal 15-55 (%) Final Performing Location LAB[facility]AT[facility] - [address] [place] [address]
--- OUTSIDE RECORDS SUMMARY | 2023-09-10 04:57 | External Medical Summary ---
Author Name Unknown Address Unknown Organization K01:[facility] [place] - [address] [facility] [address] Laboratory Report Ordering Provider Test Date Status RYNE BRISCOE 07/18/2023 10:37:33 Final Observation Date Value Abnormality Reference (Units ) Status Ferritin 07/18/2023 10:37:33 10 Below low normal 13- 150 (ng/mL) Final Postmenopausal women have hi gher ferritin levels than pre-menopausal women. The above reference interval is based on pre-menopausal women. Performing [facility] [address] [facility] [address]
--- OUTSIDE RECORDS SUMMARY | 2023-09-10 04:58 | External Medical Summary | Summary of Care ---
Author Name Unknown Organization [facility] Address [address] [place] [address] Phone [phone] Care Team Providers Care Rug Renovator Name Role Phone Kenrick Gallo MD Primary Care Provider Encounter Details Date Type Department Care Team (Late st Contact Info) Description 07/11/2023 Orders Only Unspecified Department Kenrick Gallo MD [address] [facility] [address] Allergies No known active allergiesdocumented as of this encounter (statuses as of 07/16/2023) Medications Medication Sig Dispensed Refills Start Date [...] mouth at bedtime. 0 01/15/2023 Active Tiotropium [place] Monohydrate 2.5 MCG/ACT Inhalation Aerosol Solution (Spiriva Respimat) Inhale 2 Puffs by mouth every morning. 0 05/14/2023 Active Lisinopril 5 MG Oral Tablet (Prinivil) Take 1 Tablet by mouth daily in the morning. 30 Tablet 1 06/10/2023 Active levETIRAcetam 250 MG Oral Tablet (Keppra) Take 2 Tablets by mouth in the morning and 2 Tablets before bedtime. 120 Tablet 0 06/10/2023 Active dexAMETHasone 4 MG Oral Tablet Take 1 tablet by mouth twice daily for 2 days followed by a half-tablet twice daily for 2 days followed by a half-tablet once daily for 2 days and then stop. 6 Tablet 0 06/10/2023 Active documented as of this encounter (statuses as of 07/16/2023) Active Problems Problem Noted Date Diagnosed Date [...] as of this encounter (statuses as of 07/16/2023) Immunizations Name Administration Dates Next Due TD [...] 07/18/2023 9:45 AM EST Office Visit Hematology/Oncology [facility] [address] [place] [address] Bradley Amaya MD [address] [place] [address] 01/09/2024 9:10 AM EDT Office Visit Neurology, [place] [address] [place] [phone] Alyssa Reich DO [address] [place] [address] Health Maintenance Due Date Last Done Comments DISCUSS TOBACCO CESSATION (REFER TO SMARTSET #3678) 1960 COVID-19 Vaccine (#1) 1960 Pneumococcal Vaccine: Pediatrics (0 to 5 Years) and At-Risk Patients (6 to 64 Years) (1 - PCV) 01/23/1966 Depression Screening 1972 HIV Screening 01/23/1975 Albumin/Creatinine Ratio 01/23/1978 Alpha-1 Antitrypsin 01/23/1978 DTaP,Tdap,and Td Vaccines (1 - Tdap) 08/06/2000 08/05/2000 Colonoscopy 01/23/2005 Sigmoidoscopy 01/23/2005 LUNG CANCER SCREENING - USE SMARTSET 40688 01/23/2010 Zoster Vaccines (1 of 2) 01/23/2010 [...] 11/20/2021, 03/05, 06/24/2020 Colorectal Cancer Screening 11/20/2024 Diabetes Screening 06/10/2026 06/10/2023, 1 08/10/2022, 06/09/2023, Additional history exists Pap Smear Discontinued 11/04/2007 (Done elsewhere) GARDASIL-HPV IMMUNIZATION SERIES Aged Out No longer eligible based on patient's age to complete this topic Hepatitis B Aged Out No longer eligi ble based on patient's age to complete this topic MENINGOCOCCAL (MENACTRA/MENVEO) Aged Out No longer eligible based on patient's age to complete this topic documented as of this encounter Medical Devices Implanted Type Area Software Design Analyst Device Identifier Shelf Expiration Date Model / Serial / Lot Screw 1.5x4mm Sd Un3 - [id number] Implanted:Qty : 20 on 06/05/2023 by Peter Omalley MD at [facility] [place] Left: Head ANURADHA : CRANIOMAXILLOFACIAL [id number] / / documented as of this encounter Procedures Procedure Name Priority Date/Time Associated Diagnosis Comments RADIOLOGY EXAM - PET (IMAGES ONLY, NO REPORT) Routine 07/11/2023 2:30 PM EST documented in this encounter Results * RADIOLOGY EXAM - PET (IMAGES ONLY, NO REPORT) (07/11/2023 2:30 PM EST) 07/11/2023 2:29 PM EST Narrative Scheduling, Silent - 07/16/2023 9:01 AM EST This is an imaging study not interpreted or resulted by a [employer] or [place] [employer] contracted radiologist. Kenrick Gallo MD RAD NUCLEAR ME D documented in this encounter Advance Directives Latest [...] Advance Directives occurred with: Patient Care Teams Rug Renovator Relationship Specialty Start Date End Date Kenrick Gallo MD [address] Hosptalist [place] [address] PCP - General Internal Medicine 06/20/23 documented as of this encounter
--- OUTSIDE RECORDS SUMMARY | 2023-09-10 04:58 | External Medical Summary | Summary of Care ---
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) Procedures PET CT SKULL BASE TO MID-THIGH Honorio Shipley MD [address] [place] [address] Referral ID Status Reason Start Date Expiration Date V isits Requested Visits Authorized [id number] Authorized Precert 07/09/2023 09/02/2023 999 999 * Evaluate & Treat - Unlimited Visits (Within 3 days (urgent)) - Pending Review Specialty Diagnoses / Procedures Referred By Contac t Referred To Contact Radiation Oncology Diagnoses 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 0 01/15/2023 Active Tiotropium Peck Monohydrate 2.5 MCG/ACT Inhalation Aerosol Solution (Spiriva [...] as of this encounter (statuses as of 07/11/2023) Active Problems Problem Noted Date Diagnosed Date [...] as of this encounter (statuses as of 07/11/2023) Immunizations Name Administration Dates Next Due TD [...] Sign Reading Time Taken Comments Blood Pressure 112/76 06/24/2023 10:58 AM EST Pulse - - Temperature 36.9 C (98.4 F) 06/24/2023 10:[address] Respiratory Rate - - Oxygen Saturation - - Inhaled Oxygen Concentration - - Weight 70.4 kg (155 lb 1.6 oz) 06/24/2023 10:58 AM EST Height - - Body Mass Index 25.03 06/04/2023 3:49 AM EDT documented in this encounter Functional Status Functional [...] No 06/04/2023 documented as of this encounter Patient Instructions * Patient Instructions* Courtney Vang LPN - 06/24/2023 11:12 AM EST You were seen today by the Brain Tumor Multidisciplinary Clinic at [facility]. You were seen today by Dr. Boss (Neurosurgery), Dr. Aleman (Radiation Oncology), and Dr. Shipley (Neuro Oncology) History: Secondary Malignant neoplasm of brain Imaging Review: We reviewed your most recent MRI imaging. Treatment Plan: Radiation Therapy Referrals placed: [facility] Follow up with us in 3 months Post completion of Radiation Therapy with repeat imaging. Can be telemedicine visit. If you have any questions after today's visit, please contact our clinic at [phone]. You may ask to be connected to the Neuro Oncology team, or they will refer your message to us so we may respond in a timely manner. Thank you! documented in this encounter Progress Notes * Honorio Shipley MD - 06/24/2023 5:03 PM EST Brain Tumor [facility]--Medical Oncology Note Name: Angeles Johnston Date: 06/24/2023 Primary Care Provider: Kenrick Gallo MD DIAGNOSIS and Treatment History: Treatment Summary Brain lesion 06/05/2023 Initial Diagnosis Metastatic adenocarcinoma to brain 06/05/2023 Surgery Left frontal tumor resection by Dr. Omalley 06/05/2023 Molecular Testing Results Final Diagnosis A, B. Brain, left frontal tumor, resection: -- Metastatic adenocarcinoma, compatible with lung primary. Positive for TTF-1 and Napsin-A which are markers for pulmonary glandular differentiation Negative for p40 and CK5/6 Positive for FABIOLA, CK7 and AE1/AE3 PRESENTING PROBLEM: pt with lung ca, brain mets, eval and mgt HPI: 63 YO F with PMH of COPD, DLD, alcohol use disorder, anxiety/depression, GERD, HTN, OA. Who p/w headaches, focal RUE weakness and RUE seizures and CT showed dural based tumor. 06/04/2023 MRI brain: 19 x 13 x 12 mm left posterior frontal lobe rim enhancing lesion with central blood products; enhancing lesion components demonstrate diffusion restriction. 14 x 14 x 13 mm left posterior frontal lobe enhancing lesion with associated diffusion restriction. These lesions are favored to be intra-axial. S/p Left frontal Crani with tumor resection on . Path showed Adenoca c/w lung primary. CT CAP showed no obv primary lesion( OSH) She reports her strength is improving, healing well from surgery. Lives closer to [place] andwould like to pursue rx there. ROS: pertinent positive/negative noted above. PAST MEDICAL HISTORY: Past Medical History: Diagnosis Date Pain in limb 1995 left arm, EMG suggested possible mild left CTS in 2001 PAST SURGICAL HISTORY: Past Surgical History: Procedure Laterality Date CXR 2 VIEWS AP/PA & LATERAL 03/23/02+ PAH-the heart size and contour are normal the lungs are expanded and clear MICROSURGERY ADD-ON Left 06/05/2023 MICROSURGICAL SURGERY REQUIRING MICROSCOPE LISTED SEPARATELY performed by Peter Omalley MD at [facility] MRI BRAIN W WO CONTRAST 10/13/01 PAH--the [...] SUPRATENTORIAL performed by Peter Omalley MD [place] STEREOTACTIC CRANIAL INTRADURAL NAVIGATION Left 06/05/2023 STEREOTACTIC CRANIAL INTRADURAL NAVIGATION performed by Peter Omalley MD at [place] [facility] SOCIAL HISTORY: Social History Tobacco Use Smoking status: Every Day Packs/day: 2.00 Years: 34.00 Additional pack years: 0.00 Total pack years: 68.00 Types: Cigarettes Smokeless tobacco: Never Tobacco comments: 1pkg per day, depends on stress started age 14 Vaping Use Vaping Use: Never used Substance Use Topics Alcohol use: Yes Comment: 12 beers a week Drug use: No FAMILY HISTORY: Family History Problem Relation Age of Onset Liver disease Mother Heart disease Father HF? Heart disease Brother 21 [place] Current Outpatient Medications Medication Sig Dispense Refill [...] 1 Tablet by mouth at bedtime. Tiotropium Peck Monohydrate 2.5 MCG/ACT Inhalation Aerosol Solution (Spiriva [...] No current facility-administered medications for this visit. ALLERGIES: Review of patient's allergies indicates: No Known Allergies PHYSICAL EXAMINATION: Vitals Reviewed as documented in the chart GEN: Well nourished, sitting up comfortably in NAD HEENT:s/p crani, healing well. No pallor, conjunctival injection, sclerae anicteric. Neck supple, no JVD, thryomegaly Chest: non labored breathing, symm expansion Extr: warm , well perfused, no CC. Edema- Neuro: AAOX3, Speech fluent Face Symmetric. R UE weakness 4/5 See detailed neuro exam from notes from same day Psych: appropriate mood and affect LABS: Reviewed as documented in the chart IMAGES: Personally reviewed and discussed in [facility] MRI brain 06/04/23:IMPRESSION: 1. 19 x 13 x 12 mm [...] Soft tissue swelling/hematoma overlying right frontal bone. IMPRESSION and PLAN: 63yoF with HTN GERD COPD Smoking >60 pack yrs RUE weakness and Focal Seizures May-Jun 2023 Non Small Cell Lung Ca, AdenoCa Brain metastases, s/p resection jun 2023 We discussed diag, prog, stage and goals of care Will need PET/CT NGS on tumor tissue, PDL1 testing Will proceed with Radiation therapy at [facility], plan for WBRT with hippocampal sparing due tolesion abutting dura ( see da by Dr Aleman) Systemic rx post completion of WBRT; appt to be made with med onc in [place] Patient Active Problem List Diagnosis Code Tobacco use disorder F17.200 Brachial neuritis M54.12 COPD, moderate (HCC) J44.9 Mixed dyslipidemia E78.2 Focal seizures (HCC) R56.9 Intracranial mass R90.0 RUE weakness R29.898 Steroid-induced hyperglycemia R73.9, T38.0X5A Alcohol use disorder F10.90 Anxiety F41.9 Atherosclerosis of aorta (HCC) I70.0 B12 deficiency E53.8 Brain lesion G93.9 Depression F32.A Dilated bile duct K83.8 Frontal headache R51.9 Hypertension I10 Hyperlipidemia E78.5 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 Excluding any time spent in the performance of separately billed services. The patient was seen in multi-disciplinary clinic, I personally reviewed the relevant labs/medications/pathology and imaging studies and discussed and developed plan of care in co-ordination and withinput from other providers. Plan and recommendations were discussed with the pt and their family, all questions were answered and instructions for follow up provided. Honorio Shipley MD Department of Medical Oncology 06/24/2023 * Mayur Aleman MD - 06/24/2023 11:15 AM EST Images from the original note were not included. Rad Onc consult Diagnosis: 63 year old female with an ANDI of unknown primary, likely lung in origin, presenting with two foci of metastases in the left posterior frontal rim, s/p left frontal craniotomy for gross total resection 06/05/2023 Interval history: P/W RUE seizures, RUE weakness, fall 06/01/2023 CT Face/Cspine (no report, reviewed imaging) 06/02/2023 Brain (no report, reviewed imaging) 06/04/2023 CT C/A/P (no report, reviewed imaging) 06/04/2023 MRI brain: 19 x 13 x 12 mm left posterior frontal lobe rim enhancing lesion with centralblood products; enhancing lesion components demonstrate diffusion restriction. 14 x 14 x 13 mm leftposterior frontal lobe enhancing lesion with associated diffusion restriction. These lesions are favored to be intra-axial. No increased rCBV perfusion is present within either lesion. These lesions obscure color DTI signal within left corticospinal tract and left superior longitudinal fasciculus. Of note, central FLAIR hypointense signal was present within rim enhancing lesion. Diagnostic considerations include IDH- mutant astrocytoma, oligodendroglioma, or pleomorphic xanthoastrocytoma, among o ther entities. 06/05/2023 Left frontal craniotomy for removal of supratentorial tumor ([place]) Path: ANDI c/w lung primary 06/06/2023 MRI brain: The patient has undergone left frontal parietal craniotomy. Previously seen dural based mass along the left parietal convexity has been resected. There are expected postsurgical changes including a thin extradural collection beneath the craniotomy, and slight thickening and enhancement of the dura. No residual enhancing mass is identified. Similar degree of white matter edemain left parieto-occipital region surrounding the central sulcus. She is recovering from her surgery. She is regaining strength in the right arm. 06/24/2023 [facility] recommendation: whole brain RT with hippocampal sparing because postop bed is poorlydefined and she had multifocal disease abutting the dural; PET/CT for staging; Needs Oncology f/u ([facility]); f/u in this clinic in 3 months after MRI brain The rationale, the risks, the benefits, the alternatives, and the personnel of radiotherapy were explained to the patient. The role of other modalities, including surgery, systemic therapy, medical management, and observation, were also discussed. The natural history of the patient's disease was explained. All questions were answered and the patient expressed understanding of the relevant issues. The patient is in agreement with this plan. She wishes to be treated in [place]. Plan: referral to [facility] (Dr. Amaya). f/u as arranged I spent a total of 30 minutes on the date of service in preparation, delivery, and documentation ofthe care provided to Angeles Johnston excluding any time spent in the performance of separately billed services. * Gera III, Yazan Glasgow MD - 06/24/2023 11:03 AM EST Neurosurgery Post-op Note Neuro-oncology [facility], [place], [address] S/p L frontoparietal craniotomy by Dr. Omalley on 06/05/23 for NSCLC metastasis Angeles is doing well today and is recovering her RUE function progressively. She has not been washing her hair per instructions on discharge. Denies erythema, edema, or drainage from incision site. Denies fevers. PHYSICAL EXAMINATION BP 112/76 | Temp 36.9 C (98.4 F) (Tympanic) | Wt 70.4 kg (155 lb 1.6 oz) | BMI 25.03 kg/m | BSA 1.81 m Neurologically stable AA&O No acute distress Follows all commands Pleasant and cooperative PERRL CN II-XII grossly intact Autumn spontaneously RUE drift and improving weakness 4/5 throughout Incision site clean, dry, and intact. No signs of infection. Mr. Aleman cleansed her scalp and removed the diego without incident IMAGES: NA, no new imaging ASSESSMENT/PLAN: Angeles is recovering from her craniotomy for a metastasis. Dr. Shipley is suggesting a PET as it isnot clear that a primary was found. Dr. Aleman is recommending hippocampal sparing WBRT given difficulty with postop SRS planning given not real target. I reviewed wound care and neurological symptoms to be on the lookout for. All questions were answered. Referrals will be made to [place] given her geography. We can f/u with her via telemedicine if she'd like in 3 mo. Yazan Boss III, MD, PhD 06/24/2023 11:07 AM documented in this encounter Plan of Treatment Upcoming Encounters Date Type Department Care Team (Late st Contact Info) Description 07/18/2023 9:45 AM EST Office Visit Hematology/Oncology [facility] [address] [facility] [place] [address] Bradley Amaya MD [address] [place] [address] 07/19/2023 2:45 PM EST Imaging Radiology, [address] [place] [address] 01/09/2024 9:10 AM EDT [facility] [address] [place] [address] Alyssa Reich [address] [place] [address] Scheduled Orders Name Type Priority Associated Diagnoses Orde r Schedule PET CT SKULL BASE TO MID-THIGH Medical Imaging Routine 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) [C79.31, C79.49] Expected: 07/01/2023, Expires: 07/24/2024 Scheduled Referrals Name Type Priority Associated Diagnoses Orde r Schedule RADIATION/ONCOLOGY REFERRAL OP Referral Within 3 days (urgent) 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) [C79.31, C79.49] Ordered: 06/24/2023 Health Maintenance Due Date Last Done Comments DISCUSS TOBACCO CESSATION (REFER TO SMARTSET #2022) 1960 COVID-19 Vaccine (#1) 1960 Pneumococcal Vaccine: Pediatrics (0 to 5 Years) and At-Risk Patients (6 to 64 Years) (1 - PCV) 01/23/1966 Depression Screening 1972 HIV Screening 01/23/1975 Albumin/Creatinine Ratio 01/23/1978 Alpha-1 Antitrypsin 01/23/1978 DTaP,Tdap,and Td Vaccines (1 - Tdap) 08/06/2000 08/05/2000 Colonoscopy 01/23/2005 Sigmoidoscopy 01/23/2005 LUNG CANCER SCREENING - USE SMARTSET [id number] 01/23/2010 Zoster Vaccines (1 of 2) 01/23/2010 [...] this encounter Medical Devices Implanted Type Area Housing Counselor Device Identifier Shelf Expiration Date Model / Serial / Lot Screw 1.5x4mm Sd Un3 - [id number] Implanted:Qty : 20 on 06/05/2023 by Peter Omalley MD [place] [facility] Left: Head ANURADHA : CRANIOMAXILLOFACIAL [id number] / / documented as of this encounter Procedures Procedure Name Priority Date/Time Associated Diagnosis Comments ANATOMIC PATHOLOGY (BM/SURGICAL/CYTOLO GY) ADD ON REQUEST Routine 06/24/2023 5:02 PM EST 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 [place] [address] PCP - General Internal Medicine 06/20/23 documented as of this encounter"
--- OUTSIDE RECORDS SUMMARY | 2023-09-10 04:58 | External Medical Summary | Summary of Care ---
Author Name Unknown Organization [facility] Address [address] [place] [address] Phone [phone] Care Team Providers Care Pneumatic Tester Mechanic Name Role Phone Kenrick Gallo MD Primary Care Provider Encounter Details Date Type Department Care Team (Latest Contact Info) Description 07/11/2023 2:30 PM EST - 07/11/2023 11:59 PM EST Hospital Encounter Radiology Film File [address] [place] [address] Discharge Disposition: Home - Self Care Allergies No known active allergiesdocumented as of this encounter (statuses as of 07/17/2023) Medications Medication Sig Dispensed Refills Start Date [...] mouth at bedtime. 0 01/15/2023 Active Tiotropium [place] Monohydrate 2.5 MCG/ACT Inhalation Aerosol Solution (Spiriva [...] as of this encounter (statuses as of 07/17/2023) Active Problems Problem Noted Date Diagnosed Date [...] as of this encounter (statuses as of 07/17/2023) Immunizations Name Administration Dates Next Due TD [...] State Bre L[place] [address] [place] [address] Bradley Amaya MD [address] [place] [address] 01/09/2024 9:10 AM EDT Office Visit Neurology, [place] [address] [place] [id number] Alyssa Reich, [address] [place] [address] Health Maintenance Due Date Last Done Comments DISCUSS TOBACCO CESSATION (REFER TO SMARTSET #2193) 1960 COVID-19 Vaccine (#1) 1960 Pneumococcal Vaccine: Pediatrics (0 to 5 Years) and At-Risk Patients (6 to 64 Years) (1 - PCV) 01/23/1966 Depression Screening 1972 HIV Screening 01/23/1975 Albumin/Creatinine Ratio 01/23/1978 Alpha-1 Antitrypsin 01/23/1978 DTaP,Tdap,and Td Vaccines (1 - Tdap) 08/06/2000 08/05/2000 Colonoscopy 01/23/2005 Sigmoidoscopy 01/23/2005 LUNG CANCER SCREENING - USE SMARTSET [id number] 01/23/2010 Zoster Vaccines (1 of 2) 01/23/2010 [...] this encounter Medical Devices Implanted Type Area Roll Picker Device Identifier Shelf Expiration Date Model / Serial / Lot Screw 1.5x4mm Sd Un3 - [id number] Implanted:Qty : 20 on 06/05/2023 [place] [facility] [place]: Head ANURADHA : CRANIOMAXILLOFACIAL [id number] / / documented as of this encounter [...] study not interpreted or resulted by a [employer] or Spot Runner contracted radiologist. Kenrick Gallo MD RAD NUCLEAR [...] Advance Directives occurred with: Patient Care Teams Pneumatic Tester Mechanic Relationship Specialty Start Date End Date Kenrick Gallo MD [facility] [address] [facility] [place] [id number] PCP - General Internal Medicine 06/20/23 documented as of this encounter
--- OUTSIDE RECORDS SUMMARY | 2023-09-10 04:58 | External Medical Summary | Summary of Care ---
Author Name Unknown Organization [facility] Address [address] [place] [address] Phone [phone] Care Team Providers Care Entertainment Reporter Name Role Phone Kenrick Gallo MD Primary Care Provider Reason for Visit * Reason Onset Date Comments Appointment 07/09/2023 Checking to see if seen by Rad Onc and if scheduled for PET Scan Encounter Details Date Type Department Care Team ([facility] st Contact Info) Description 07/09/2023 Telephone Neurology, [place] [address], [place] [id number] Clinic, Brain Tumor Multidisciplinary [address], [place] [phone] Appointment (Checking to see if seen by Ra... Allergies No known active allergiesdocumented as of this encounter (statuses as of 07/14/2023) Medications Medication Sig Dispensed Refills Start Date [...] mouth at bedtime. 0 01/15/2023 Active Tiotropium [place] Monohydrate 2.5 MCG/ACT Inhalation Aerosol Solution (Spiriva [...] as of this encounter (statuses as of 07/14/2023) Active Problems Problem Noted Date Diagnosed Date [...] as of this encounter (statuses as of 07/14/2023) Immunizations Name Administration Dates Next Due TD [...] encounter Miscellaneous Notes * Telephone Encounter - Courtney Vang LPN - 07/14/2023 8:11 AM EST Called [facility] Radiology spoke with Camryn cornejo 07/11/23 PET Scan images pushed to [employer]. She stated that she will do that. I thanked her. * Telephone Encounter - Courtney Vang LPN - 07/10/2023 1:22 PM EST Called patient Patient identified by name and date of . Asked her if she knows how many radiation treatments they will schedule her for and when her start date is. She stated that she will start on 07/22/23 and she is to have 10 treatments. I then asked if she is scheduled for a PET scan and she stated yes she is scheduled tomorrow at [facility]. I thanked her for the information and wished her well. * Telephone Encounter - Courtney Vang LPN - 07/09/2023 1:59 PM EST Received a call from Tiffany at [facility] Radiation Oncology Dept. She stated that patient is scheduled to start treatment on 07/18/23. She also stated that patient had PET on 06/24/23, however that is when the order was placed. I thanked her for calling back. * Telephone Encounter - Courtney Vang LPN - 07/09/2023 1:36 PM EST Called scheduling spoke with Rama scheduled patient for PET scan at [facility] on Saturday07/19/23 at 2:45 pm with a 2:30 pm arrival time. She is to fast for 6 hours prior to the scan. I thanked her. Called patient, no answer, left message requesting she call me at [phone] regarding scheduled PET scan and if she received communication regarding Radiation Therapy at [facility]. Also stated I will call the other contacts listed on her chart regarding this. Called patient's sister Rosanna informed her I was trying to reach [facility]. She stated that she thought she was going to [place] to get measured for a mask today. She also mentioned that she is supposed to have some additional testing done as well. I thanked her for the information. Called [facility] Radiation Oncology Dept. No answer, left message requesting they call me back as I would like to confirm that patient was seen or being seen for radiation therapy. I also stated that I was looking to see if she was scheduled for a PET Scan at their facility. Gave my number [phone] to call back. documented in this encounter Plan of Treatment Upcoming Encounters Date Type Department Care Team (Late st Contact Info) Description 07/18/2023 9:45 AM EST Office Visit Hematology/Oncology [place] [address] [place] [address] Bradley Amaya MD [address] [place] [address] 07/19/2023 2:45 PM EST Imaging Radiology, [address] [place] [address] 01/09/2024 9:10 AM EDT Office Visit Neurology, [place] [address] [place] [address] Alyssa Reich DO [address], [place] [phone] Health Maintenance Due Date Last Done Comments DISCUSS TOBACCO CESSATION (REFER TO SMARTSET #1025) 1960 COVID-19 Vaccine (#1) 1960 Pneumococcal Vaccine: Pediatrics (0 to 5 Years) and At-Risk Patients (6 to 64 Years) (1 - PCV) 01/23/1966 Depression Screening 1972 HIV Screening 01/23/1975 Albumin/Creatinine Ratio 01/23/1978 Alpha-1 Antitrypsin 01/23/1978 DTaP,Tdap,and Td Vaccines (1 - Tdap) 08/06/2000 08/05/2000 Colonoscopy 01/23/2005 Sigmoidoscopy 01/23/2005 LUNG CANCER SCREENING - USE SMARTSET [id number] 01/23/2010 Zoster Vaccines (1 of 2) 01/23/2010 [...] encounter Medical Devices Implanted Type Area Database Administrator Device Identifier Shelf Expiration Date Model / Serial / Lot Screw 1.5x4mm Sd Un3 - [id number] Implanted:Qty : 20 on 06/05/2023 by Peter Omalley MD at OR [facility] [place] Left: Head ANURADHA : CRANIOMAXILLOFACIAL [id number] / / documented as of this encounter [...] Advance Directives occurred with: Patient Care Teams Entertainment Reporter Relationship Specialty Start Date End Date Kenrick Gallo MD [address] [place] [address] PCP - General Internal Medicine 06/20/23 documented as of this encounter
--- OUTSIDE RECORDS SUMMARY | 2023-09-10 04:58 | External Medical Summary | Summary of Care ---
Author Name Unknown Organization [facility] Address [address] [place] [address] Phone [phone] Care Team Providers Care Campaign Consultant Name Role Phone Kenrick Gallo MD Primary Care Provider Reason for Visit * Reason Onset Date Comments Appointment 07/09/2023 Checking to see if seen by Rad Onc and if scheduled for PET Scan Encounter Details Date Type Department Care Team ([facility] st Contact Info) Description 07/09/2023 Telephone Neurology, [place] [address] [place], [place] [phone] Clinic, Brain Tumor Multidisciplinary [address], [place] [phone] Appointment (Checking to see if seen by [...] mouth at bedtime. 0 01/15/2023 Active Tiotropium [place] Monohydrate 2.5 MCG/ACT Inhalation Aerosol Solution (Spiriva [...] Telephone Encounter - Courtney Vang LPN - 07/16/2023 8:49 AM EST Called [facility] [employer] spoke with Mook. I stated that I had called on Saturday requesting PET images be sent to us via [employer]. I stated that they are not in and asked if she could please resend them. She stated that they are showing that they sent the imaging and I have to check with our imaging department to see if they can move them over. She said that they can check and see if the imaging wentthrough and if it didn't they can resend but I have to call film file first to check. I stated that I will and thanked her. Called [employer], no answer, left message requesting they check to see if we received the imaging and if not to please contact me at [phone] so I can call to request they resend it. * Telephone Encounter - Courtney Vang LPN - 07/14/2023 8:11 AM EST Called [facility] Radiology spoke with Camryn requested 07/11/23 PET Scan images pushed to [employer]. She stated that she will do that. [...] stated yes she is scheduled tomorrow at [facility]. I thanked her for the information and wished her well. * Telephone Encounter - Courtney Vang LPN - 07/09/2023 1:59 PM EST Received a call from Tiffany at [facility] Radiation Oncology Dept. She stated that patient is scheduled to start treatment on 07/18/23. She also stated that patient had PET on 06/24/23, however that is when the order was placed. I thanked her for calling back. * Telephone Encounter - Courtney Vang LPN - 07/09/2023 1:36 PM EST Called scheduling spoke with Rama scheduled patient for PET scan at [facility] on Saturday07/19/23 at 2:45 pm with a 2:30 pm arrival time. She is to fast for 6 hours prior to the scan. I thanked her. Called patient, no answer, left message requesting she call me at [phone] regarding scheduled PET scan and if she received communication regarding Radiation Therapy at [facility]. Also stated I will call the other contacts listed on her chart regarding this. Called patient's sister Rosanna informed her I was trying to reach [place]. She stated that she thought she was going to [place] to get measured for a mask today. She also mentioned that she is supposed to have some additional testing done as well. I thanked her for the information. Called [facility] Radiation Oncology Dept. No answer, left message requesting they call me back as I would like to confirm that patient was seen or being seen for radiation therapy. I also stated that I was looking to see if she was scheduled for a PET Scan at their facility. Gave my number [phone] to call back. documented in this encounter Plan of Treatment Upcoming Encounters Date Type Department Care Team (Late st Contact Info) Description 07/18/2023 9:45 AM EST Office Visit Hematology/Oncology [place] [address] [place] [address] Bradley Amaya MD [address] [place] [address] 01/09/2024 9:10 AM EDT Office Visit Neurology, [address] [place] [address] Alyssa Reich, DO [address] [place] [address] Health Maintenance Due Date Last Done Comments DISCUSS TOBACCO CESSATION (REFER TO SMARTSET #0709) 1960 COVID-19 Vaccine (#1) 1960 Pneumococcal Vaccine: Pediatrics (0 to 5 Years) and At-Risk Patients (6 to 64 Years) (1 - PCV) 01/23/1966 Depression Screening 1972 HIV Screening 01/23/1975 Albumin/Creatinine Ratio 01/23/1978 Alpha-1 Antitrypsin 01/23/1978 DTaP,Tdap,and Td Vaccines (1 - Tdap) 08/06/2000 08/05/2000 Colonoscopy 01/23/2005 Sigmoidoscopy 01/23/2005 LUNG CANCER SCREENING - USE SMARTSET [id number] 01/23/2010 Zoster Vaccines (1 of 2) 01/23/2010 [...] this encounter Medical Devices Implanted Type Area Bar Manager Device Identifier Shelf Expiration Date Model / Serial / Lot Screw 1.5x4mm Sd Un3 - [id number] Implanted:Qty : 20 on 06/05/2023 by Peter Omalley MD at OR [facility] [place] [place] Left: Head ANURADHA : CRANIOMAXILLOFACIAL [id number] / / documented as of this encounter [...] Advance Directives occurred with: Patient Care Teams Campaign Consultant Relationship Specialty Start Date End Date Kenrick Gallo MD [address] [place] [place] [address] PCP - General Internal Medicine 06/20/23 documented as of this encounter
--- OUTSIDE RECORDS SUMMARY | 2023-09-10 04:58 | External Medical Summary | Summary of Care ---
Author Name Unknown Organization [facility] Address [address] [place] [address] Phone [phone] Care Team Providers Care Systems Tester Name Role Phone Kenrick Gallo MD Primary Care Provider Reason for Visit * Reason Onset Date Comments Appointment 07/09/2023 Checking to see if seen by Rad Onc and if scheduled for PET Scan Encounter Details Date Type Department Care Team ([facility] st Contact Info) Description 07/09/2023 Telephone Neurology, [place] [address] [place], [place] [phone] Clinic, Brain Tumor Multidisciplinary [address] [place], [place] [phone] Appointment (Checking to see if seen by [...] at bedtime. 0 01/15/2023 Active Tiotropium [place] Monohydrate 2.5 MCG/ACT Inhalation Aerosol Solution (Spiriva [...] LPN - 07/14/2023 8:11 AM EST Called [facility] Radiology spoke with Camryn cornejo 07/11/23 PET [...] stated yes she is scheduled tomorrow at [facility]. I thanked her for the information and wished her well. * Telephone Encounter - Courtney Vang LPN - 07/09/2023 1:59 PM EST Received a call from Tiffany at [facility] Radiation Oncology Dept. She stated that patient is scheduled to start treatment on 07/18/23. She also stated that patient had PET on 06/24/23, however that is when the order was placed. I thanked her for calling back. * Telephone Encounter - Courtney Vang LPN - 07/09/2023 1:36 PM EST Called scheduling spoke with Rama scheduled patient for PET scan at [facility] on Saturday07/19/23 at 2:45 pm with a 2:30 pm arrival time. She is to fast for 6 hours prior to the scan. I thanked her. Called patient, no answer, left message requesting she call me at [phone] regarding scheduled PET scan and if she received communication regarding Radiation Therapy at [facility]. Also stated I will call the other contacts listed on her chart regarding this. Called patient's sister Rosanna informed her I was trying to reach [facility]. She stated that she thought she was going to [place] to get measured for a mask today. She also mentioned that she is supposed to have some additional testing done as well. I thanked her for the information. Called [facility] Radiation Oncology Dept. No answer, left message requesting they call me back as I would like to confirm that patient was seen or being seen for radiation therapy. I also stated that I was looking to see if she was scheduled for a PET Scan at their facility. Gave my number [phone] to call back. documented in this encounter Plan of Treatment Upcoming Encounters Date Type Department Care Team (Late st Contact Info) Description 07/18/2023 9:45 AM EST Office Visit Hematology/Oncology [facility] [place] [place] [address] [place] [address] Bradley Amaya MD [address] [place] [address] 07/19/2023 2:45 PM EST Imaging Radiology, [address] [place] [address] 01/09/2024 9:10 AM EDT Office Visit Neurology, [place] [address] [place] [address] Alyssa Reich DO [address] [place], [place] [phone] Health Maintenance Due Date Last Done Comments DISCUSS TOBACCO CESSATION (REFER TO SMARTSET #5125) 1960 COVID-19 Vaccine (#1) 1960 Pneumococcal Vaccine: Pediatrics (0 to 5 Years) and At-Risk Patients (6 to 64 Years) (1 - PCV) 01/23/1966 Depression Screening 1972 HIV Screening 01/23/1975 Albumin/Creatinine Ratio 01/23/1978 Alpha-1 Antitrypsin 01/23/1978 DTaP,Tdap,and Td Vaccines (1 - Tdap) 08/06/2000 08/05/2000 Colonoscopy 01/23/2005 Sigmoidoscopy 01/23/2005 LUNG CANCER SCREENING - USE SMARTSET [id number] 01/23/2010 Zoster Vaccines (1 of 2) 01/23/2010 [...] this encounter Medical Devices Implanted Type Area Strickler Attendant Device Identifier Shelf Expiration Date Model / Serial / Lot Screw 1.5x4mm Sd Un3 - [id number] Implanted:Qty : 20 on 06/05/2023 by Peter Omalley MD [place] [facility] [facility] [place] Left: Head ANURADHA : CRANIOMAXILLOFACIAL [id number] / / documented as of this encounter [...] Advance Directives occurred with: Patient Care Teams Systems Tester Relationship Specialty Start Date End Date Kenrick Gallo MD [address] [place] [place] [address] PCP - General Internal Medicine 06/20/23 documented as of this encounter
--- NOTE | 2023-09-10 05:28 | Magnetic Resonance Report ---
Exam(s): MRI HEAD W/WO Contrast IV Amt: 6.5cc gadavist EXAM: MR Head Without and With Intravenous Contrast CLINICAL HISTORY: Reason for exam: Seizure, s/p resection of adenocarcinoma. TECHNIQUE: Magnetic resonance images of the head/brain without and with intravenous contrast in multiple planes. CONTRAST: Patient received 6.5cc gadavist of IV contrast COMPARISON: Comparison made to prior noncontrasted CT from September 09, 2023. FINDINGS: Brain: There is a remote injury of the left frontal lobe with encephalomalacia and gliosis, which likely represents the nidus for patient's seizure activity. Mild nonspecific white matter changes. The flow voids of the base of the brain are intact. No mass. No hemorrhage. No acute infarct. There is thickening of the dura underlying the craniotomy site with increased enhancement. The dural venous sinuses are patent. No evidence of mesial temporal sclerosis, heterotopic james matter or cortical dysplasia. Ventricles: Unremarkable. No ventriculomegaly. Bones/joints: Status post left craniotomy with expected postsurgical changes. No acute fracture. Sinuses: Chronic right ethmoid sinusitis. No acute sinusitis. Mastoid air cells: Small moderate fluid in the left and tiny amount of fluid in the right mastoid air cells. No mastoid effusion. Orbits: Unremarkable as visualized. IMPRESSION: No evidence of acute intracranial pathology. Electronically signed by: Caridad Georges MD 09/10/23 05:27 AM
[2023-09-10 06:30] LABS: Basophils # (auto) 0.01 K/uL (0.00-0.20); Basophils % (auto) 0.2 %; Eosinophils # (auto) 0.07 K/uL (0.00-0.50); Eosinophils % (auto) 1.3 %; Immature Granulocytes # (auto) 0.02 K/uL (0.01-0.20); Immature Granulocytes % (auto) 0.4 %; Lymphocytes # (auto) 1.21 K/uL (1.20-3.40); Mean Corpuscular Hemoglobin 24.8 pg (25.0-34.0); Mean Corpuscular Hgb Conc 32.1 g/dL (32.0-36.0); Mean Corpuscular Volume 77.1 fL (80.0-100.0); Mean Platelet Volume 8.9 fL (9.4-12.4); Monocytes # (auto) 0.39 K/uL (0.11-0.59); Monocytes % (auto) 7.4 %; Neutrophils # (auto) 3.56 K/uL (1.40-6.50); Neutrophils % (auto) 67.7 %; Platelet Count 258 K/uL (130-400); RDW Coefficient of Variation 27.2 % (11.5-14.5); RDW Standard Deviation 71.7 fL (36.4-46.3); Red Blood Count 3.63 M/uL (4.20-5.40); White Blood Count 5.26 K/ul (4.8-10.8)
[2023-09-10 06:53] LABS: Albumin Globulin Ratio 1.8 (0.9-2); Albumin Level 3.8 gm/dl (3.4-5.0); Anisocytosis Present; BUN Creatinine Ratio 13.3 (10-20); Bilirubin,Total 0.3 mg/dl (0.2-1.0); Calcium 8.2 mg/dl (8.6-10.3); Creatinine Clr Calc Pharmacy 57.6 ml/min; Est GFR (African American) 71.2 ml/min; Est GFR (Non-African American) 61.4 ml/min; Globulin 2.1 gm/dl (2.5-4.0); Magnesium 1.6 mg/dl (1.7-2.4); Ovalocytes 1+; Phosphorus 3.3 mg/dl (2.5-4.9); Potassium 3.5 mmol/L (3.5-5.1); Total Protein 5.9 gm/dl (6.0-8.3)
--- NOTE | 2023-09-10 07:19 | XRay Report ---
XR chest 1V portable CLINICAL HISTORY: Seizure. COMPARISON STUDY: Chest CT May 24, 2023. PET/CT July 11, 2023. FINDINGS: Lung volumes are normal. Lungs are clear. There is no pneumothorax or pleural effusion. Car diac size is normal. Mediastinal contours are normal. There is no evidence for pulmonary edema. IMPRESSION: No acute cardiopulmonary findings. ACT 112: Negative or not required by law. Electronically signed by: Leo Bae M.D. 09/10/2023 7:17 AM
[2023-09-10] MEDS: LORATADINE 10 MG TAB PO SCH (08:07)
[2023-09-10] MEDS: PANTOprazole 40 MG TAB PO SCH (08:07)
[2023-09-10] MEDS: FOLIC ACID 1 MG TAB PO SCH (08:07)
[2023-09-10] MEDS: ATORVASTATIN 40 MG TAB PO SCH (08:07)
[2023-09-10] MEDS: CHOLECALCIFEROL 25 MCG (1000 UNITS) TAB PO SCH (08:07)
[2023-09-10] MEDS: MEMANTINE HCL 10 MG TAB PO SCH (08:07)
[2023-09-10] MEDS: levETIRAcetam 500 MG TAB PO SCH ×2 (08:07→20:37)
[2023-09-10] MEDS: lisinopril 5 MG TAB PO SCH (08:07)
[2023-09-10] MEDS: METOPROLOL SUCC 25MG EXT REL TAB PO SCH (08:07)
--- NOTE | 2023-09-10 08:07 | Electrocardiogram Report ---
Test Reason : Blood Pressure : / mmHG Vent. Rate : 108 BPM Atrial Rate : 108 BPM P-R Int : 186 ms QRS Dur : 074 ms QT Int : 344 ms P-R-T Axes : 076 065 061 degrees QTc Int : 460 ms Poor data quality, interpretation may be adversely affected Sinus tachycardia Nonspecific T wave abnormality Septal leads Borderline ECG When compared with ECG of 02-JUN-2023 13:20, No significant change Confirmed by Eloy Marquez ([id number]) on 09/10/2023 8:06:22 AM Referred By: REFERRED SELF Confirmed By:Eloy Marquez
[2023-09-10] MEDS: UMECLIDINIUM BROMIDE 62.5MCG/BLISTER 7 PUFFS/INHALER INH SCH (08:08)
[2023-09-10] MEDS: ENOXAPARIN INJ 40 MG/0.4 ML SYR SQ SCH (08:08)
--- NOTE | 2023-09-10 11:06 | Neurology Consultation ---
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 She had initially presented with focal sensorimotor seizures to the right upper limb and had been stable on Keppra 500 mg twice daily until her recent hospitalization yesterday characterized by recurrence of right upper extremity focal motor seizures and occasional irregular twitching of the right upper limb and persistent distal ri ght upper extremity weakness. Patient did have hypomagnesemia and hypocalcemia upon presentation, subsequently improved with treatment. Would recommend increasing patient's dosage of Keppra to 1000 mg twice daily. Order placed. I have also ordered a bedside EEG. Would give an additional 750 mg of Keppra IV x 1. Order placed. Notably, no evidence of tumor recurrence or new mass lesion on recent brain MRI. Patient should continue to follow with oncology for ongoing treatment of her metastatic lung cancer. May follow-up in outpatient neurology clinic in 2 to 3 weeks. History of Present Illness Reason for Consultation: seizure activity Requesting Physician: Zack Attending Physician: Marian Romo MD History of Present Illness The patient is a 63-year-old female who had previously presented to [facility] in May with new onset focal motor/sensory seizures affecting the distal right upper extremity in the context of a newly found e nhancing dural based lesion of the left frontal convexity with associated vasogenic edema. Subsequently diagnosed with a meningeal metastases from lung cancer. She underwent left frontal craniotomy at [facility] on June 05, 2023 and has undergone whole brain radiation, hippocampal sparing, August 06, 2023. She had been placed on Keppra after her initial presentation last May. She had not experienced any further focal seizure activity until her recent presentation. She presented to the emergency department yesterday for complaint of involuntary twitching and shaking of the right upper extremity with associated heaviness, numbness. She has had persistent moderate distal weakness of the right upper limb. She has not had episodes of collapse, loss of consciousness, or generalized seizures. A CT of the head completed yesterday revealed postsurgical changes related to prior left frontal tumor resection, no hemorrhage or acute abnormality. A follow-up brain MRI completed earlier this morning was negative for acute pathology, again revealing an area of encephalomalacia and gliosis within the left frontal lobe consistent with previous tumor resection. No stroke or other acute process identified. I independently reviewed these images. Allergies Allergy/AdvReac Type Severity Reaction Status Date / Time No Known Allergies Allergy Unverified 07/30/23 11:17 Home Medications Medication Instructions Recorded Confirmed Type albuterol sulfate 2.5 mg/3 mL 2.5 mg continuous nebulization 06/02/23 09/09/23 History (0.083 %) solution for nebulization .EVERY 4-6 PRN Shortness Of Breath Or Wheezing albuterol sulfate 90 mcg/actuation 2 inh inhalation Q6 PRN Shortness 06/02/23 09/09/23 History breath activated powder inhaler Of Breath Or Wheezing (ProAir RespiClick) atorvastatin 80 mg tablet 80 mg PO DAILY 06/02/23 09/09/23 History celecoxib 200 mg capsule 200 mg PO BID PRN Pain 06/02/23 09/09/23 History cholecalciferol (vitamin D3) 50 50 mcg PO DAILY 06/02/23 09/09/23 History mcg (2,000 unit) tablet (Vitamin D3) hydroxyzine HCl 25 mg tablet 25 mg PO TID PRN Anxiety 06/02/23 09/09/23 History lisinopril 5 mg tablet 5 mg PO DAILY 06/02/23 09/09/23 History loratadine 10 mg tablet 10 mg PO DAILY 06/02/23 09/09/23 History methocarbamol 750 mg tablet 750 mg PO BID PRN Muscle Spasm 06/02/23 09/09/23 History metoprolol succinate 25 mg 12.5 mg PO DAILY 06/02/23 09/09/23 History tablet,extended release 24 hr mirtazapine 30 mg tablet 30 mg PO HS 06/02/23 09/09/23 History omeprazole 40 mg capsule,delayed 40 mg PO DAILY 06/02/23 09/09/23 History release tiotropium bromide 2.5 2 puff inhalation DAILY 06/02/23 09/09/23 History mcg/actuation mist for inhalation (Spiriva Respimat) memantine 10 mg tablet (Namenda) 10 mg PO BID radiation to brain 08/06/23 09/09/23 Rx #60 tabs docusate sodium 100 mg capsule 100 mg PO QID PRN contipation 09/09/23 09/09/23 History folic acid 1 mg tablet 1 mg PO QAM 09/09/23 09/09/23 History levetiracetam 250 mg tablet 500 mg PO BID 09/09/23 09/09/23 History Patient History Medical History Brain lesion Frontal headache Alcohol use disorder Tobacco use disorder Anxiety Allergic rhinitis Depression GERD (gastroesophageal reflux disease) Muscle spasm Vitamin D deficiency Osteoarthritis COPD (chronic obstructive pulmonary disease) Hyperlipidemia Hypertension Surgical History H/O craniotomy 06/05/23 - History of surgery For right arm fracture S/P hysterectomy Family History Mother , age 69 of liver cancer Liver cancer Father , in his early 70s Myocardial infarction Temporary pacemaker Brother Myocardial infarction Sister Stroke Hypertension Daughter No problems noted. Social History Smoking Status: Current some day smoker Tobacco Type: Cigarettes Age Started Using Tobacco: 16; packs per day: 0.25; Cigarettes Per Day: 1/2 pack to 1 pack for the past 40-50 years; Second Hand Exposure: No; Do You Dip or Chew Tobacco: No; Hx Alcohol Use: Yes Alcohol type: hard liquor Alcohol Intake Frequency: 2-4 x/Month Hx Substance Use: No Preferred Language: Turkmen Communication Ability: Effective Visual Impairment: No Limitations Hearing Ability: Normal Sports Fitness And Wellness Director Required: No Beliefs That Will Affect Care: None marital status: / Current Living Situation: Alone current occupational status: retired 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 How many Children do You have: 1 Other Information That Helps Us Care for You: No Feels Safe at Home: Yes Safety Concerns: Feels Safe At This Time Diet: regular caffeine: Yes (1 cup/day) during the past year weight has: remained stable Assistive Devices: None Review of Systems Constitutional: + fatigue; no fever and no chills Eyes: no blind spots and no diplopia Ear, Nose, Mouth, Throat: no hearing loss Respiratory: no cough and no dyspnea Cardiovascular: no chest pain and no palpitations Gastrointestinal: no nausea and no vomiting Genitourinary: no dysuria Musculoskeletal: no neck pain and no myalgia Integumentary: no rash and no lesions Neurologic: as per Subjective / HPI, + localized weakness, + loss of sensation and + seizure-like activity; no headache(s) and no confusion Psychiatric: no depression and no anxiety Hematologic / Lymphatic: no easy bleeding and no easy bruising Exam (Neuro) Constitutional: well developed and + frail appearing; no acute distress Eyes: normal visual junior by confrontation, PERRL and EOM intact bilaterally; no nystagmus Neurologic: Oriented to:: Person, Place and Time Memory: Short Term Intact and Remote Intact Attention: Span Intact and Concentration Intact Speech Fluency: negative Dysarthria or Dysfluency Speech Aphasia: negative Aphasia Fund of Knowledge: Current Events, Past History and Vocabulary Cranial Nerves: Normal II, III, IV, , V, VII, VIII, IX, X, XI and XII Motor Strength: Normal Lower Extremities; negative Normal Upper Extremities (Moderate distal weakness for the right upper limb, pathology laboratory aide weakness, weakness of finger and wrist extension noted) Motor Tone: Normal Lower Extremities and Normal Upper Extremities Muscle Bulk/Involuntary Movements: negative No Involuntary Movements (Occasional jerking of the right upper limb noted) or Muscle Atrophy Sensation: Light Touch Intact, Pain/Temperature Intact and Proprioception I ntact Coordination: Finger-Nose Abnormal Laterality: Right; negative Heel- Fountain Abnormal Deep Tendon Reflexes: Rt Triceps: 3+, Lt Triceps: 2+, Rt B iceps: 3+, Lt Biceps: 2+, Rt Brachioradialis: 3+, Lt Brachioradialis: 2+, Rt Patellar: 2+, Lt Patellar: 2+, Rt Ankle: 1+ and Lt Ankle: 1+ Special Tests: negative Babinski Present Details: Gait not tested Results & Data Vital Signs (Past 12 Hours) Vital Signs Pulse Pulse Resp BP Pulse Ox Pulse Ox O2 Del Method 09/10/23 09:19 96 H 14 112/71 98 Room Air 09/10/23 07:11 77 09/10/23 07:06 77 16 112/78 94 Room Air 09/10/23 07:06 94 09/10/23 04:27 88 18 111/79 92 Room Air 09/10/23 02:13 80 09/10/23 01:00 80 16 103/69 95 Room Air 09/09/23 23:00 91 H 16 107/93 94 Room Air O2 Del Method 09/10/23 09:19 09/10/23 07:11 09/10/23 07:06 09/10/23 07:06 Room Air 09/10/23 04:27 09/10/23 02:13 09/10/23 01:00 09/09/23 23:00 Laboratory Results WBC 5.26, hemoglobin 9.0, hematocrit 28.0, platelet count 258, sodium 135, potassium 3.5, BUN 13, creatinine 0.98, glucose 108, calcium 8.2, magnesium 1.6, AST 33, ALT 34. A magnesium level upon presentation was 0.6, a calcium level at that time was 7.8. Diagnostic Findings CT of the head and brain MRI are as described in the HPI, I independently reviewed these images. Electrocardiogram reveals sinus tachycardia, 108 bpm. Coding Level of Care Code 37492 INT INP/OBS CARE 3/75MIN Diagnoses Focal motor seizure G40.109 Brain metastasis C79.31 H/O craniotomy Z98.890 Time Spent (min) 80 Comment Total time includes patient contact, chart review, counseling, note preparation
[2023-09-10] MEDS: levETIRAcetam 500 MG/5 ML VIAL IV STA (11:53)
--- NOTE | 2023-09-10 15:41 | Hospitalist Progress Note ---
Date of Service September 10, 2023 Assessment & Plan (1) Focal motor seizure: Plan: 63 yo female PMHx lung adenocarcinoma with mets to the brain s/p craniotomy and resection s/p radiation and chemo,hypertension, hyperlipidemia, COPD, GERD, vitamin D deficiency, muscle spasm, allergic rhinitis, tobacco use and alcohol use disorders and chronic pain syndrome. Admitted for R arm twitching and weakness, suspect partial seizure -CT unremarkable besides post-surgical changes -MRI w/wo contrast is without acute issues -Continue Keppra but load with 750mg IV x 1 now and then increase Keppra to 1000mg BID -check EEG-no seizure activity -Keppra level pending -Neurology consult appreciate recs-f/u in Neuro clinic in 2-3 weeks -seizure precautions -replace magnesium (2) Right arm weakness: Plan: chronic since brain surgery consult PT/OT (3) Hypomagnesemia: Plan: severely low on admission at 0.6. Was given 4 grams of IV Mag and will give 2 more grams Home PPI could be contributing-stop PPI Start magnesium 400mg po bid Can use Pepcid if has prn heartburn (4) Anemia: Plan: hgb low but at baseline at 9.0, microcytic In 05/2023, was severe iron deficient as well as Fe deficient check Fe studies , TSH, B12, folate in AM (5) Acute hypokalemia: Plan: mildly low-replace with po KCl follow BMP, mag in AM (6) Hypertension: Plan: BPs controlled continue home metoprolol, lisinopril (7) Hyperlipidemia: Plan: continue statin (8) GERD (gastroesophageal reflux disease): Plan: dc PPI due to severe hypomagnesemia if has any issues, can give Pepcid prn (9) COPD (chronic obstructive pulmonary disease): Plan: no acute issues continue albuterol prn, Umeclidinium daily inhaler (10) Depression: Plan: no acute issues continue mirtazapine continue hydroxyzine prn Continue memantine for cognitive impairment Plan DVT proph- SQ Lovenox Dispo-continued stay Consult PT/PT to see if needs rehab Admission and Anticipated Discharge Date Admission Date: September 09, 2023 Subjective Pt reports ongoing weakness and numbness and cold sensation in her right forearm and hand but these are all chronic complaints. The uncontrollable jerking movements of the RUE from yesterday are now resolved. Physical Exam Constitutional: WD/WN, vitals as above Respiratory: normal respiratory effort, lungs clear to auscultation Cardiovascular: RRR, no murmur, no edema Gastrointestinal (Abdomen): Inspection/Auscultation: abdomen normal to inspection and normal bowel sounds Neurologic: + focal motor deficit (4/5 strength in r ight wrist flex/ext and in right hand); not confused Psychiatric: A+Ox3, euthymic affect Results & Data Results & Data Vital Signs (Past 12 Hours) Vital Signs Pulse Pulse Resp BP Pulse Ox Pulse Ox O2 Del Method 09/10/23 15:29 82 09/10/23 15:04 81 19 101/76 96 Room Air 09/10/23 11:19 85 19 111/73 95 Room Air 09/10/23 10:56 83 16 102/76 96 Room Air 09/10/23 09:19 96 H 14 112/71 98 Room Air 09/10/23 07:11 77 09/10/23 07:06 77 16 112/78 94 Room Air 09/10/23 07:06 94 09/10/23 04:27 88 18 111/79 92 Room Air O2 Del Method 09/10/23 15:29 09/10/23 15:04 09/10/23 11:19 09/10/23 10:56 09/10/23 09:19 09/10/23 07:11 09/10/23 07:06 09/10/23 07:06 Room Air 09/10/23 04:27 Laboratory Results CBC, CMP, magnesium reviewed Diagnostic Findings EEG reviewed PG Care Time/CCT Total # of Minutes Spent Total Time Spent with Patient: Total time spent is greater than 50% in coordination of care (as documented) at patient's floor/unit and/or counseling patient: Coding Level of Care Code 85456 SUB INP/OBS CARE 3/50MIN Diagnoses Focal motor seizure G40.109 Right arm weakness R29.898 Hypomagnesemia E83.42 Anemia D64.9 Acute hypokalemia E87.6 Hypertension I10 Hyperlipidemia E78.5 GERD (gastroesophageal reflux disease) K21.9 COPD (chronic obstructive pulmonary disease) J44.9 Depression F32.A
--- NOTE | 2023-09-10 16:48 | Electroencephalogram ---
EEG Procedure Note Date of Service September 10, 2023 Start / End Times Start Time: 10:40 AM End Time: 11 AM Referring Physician Amos Martinez MD History Focal motor seizures localizing to the right upper limb, history of left hemispheric dural based metastasis resection Home Medication List Medication Instructions Recorded Confirmed Type albuterol sulfate 2.5 mg/3 mL 2.5 mg continuous nebulization 06/02/23 09/09/23 History (0.083 %) solution for nebulization .EVERY 4-6 PRN Shortness Of Breath Or Wheezing albuterol sulfate 90 mcg/actuation 2 inh inhalation Q6 PRN Shortness 06/02/23 09/09/23 History breath activated powder inhaler Of Breath Or Wheezing (ProAir RespiClick) atorvastatin 80 mg tablet 80 mg PO DAILY 06/02/23 09/09/23 History celecoxib 200 mg capsule 200 mg PO BID PRN Pain 06/02/23 09/09/23 History cholecalciferol (vitamin D3) 50 50 mcg PO DAILY 06/02/23 09/09/23 History mcg (2,000 unit) tablet (Vitamin D3) hydroxyzine HCl 25 mg tablet 25 mg PO TID PRN Anxiety 06/02/23 09/09/23 History lisinopril 5 mg tablet 5 mg PO DAILY 06/02/23 09/09/23 History loratadine 10 mg tablet 10 mg PO DAILY 06/02/23 09/09/23 History methocarbamol 750 mg tablet 750 mg PO BID PRN Muscle Spasm 06/02/23 09/09/23 History metoprolol succinate 25 mg 12.5 mg PO DAILY 06/02/23 09/09/23 History tablet,extended release 24 hr mirtazapine 30 mg tablet 30 mg PO HS 06/02/23 09/09/23 History omeprazole 40 mg capsule,delayed 40 mg PO DAILY 06/02/23 09/09/23 History release tiotropium bromide 2.5 2 puff inhalation DAILY 06/02/23 09/09/23 History mcg/actuation mist for inhalation (Spiriva Respimat) memantine 10 mg tablet (Namenda) 10 mg PO BID radiation to brain 08/06/23 09/09/23 Rx #60 tabs docusate sodium 100 mg capsule 100 mg PO QID PRN contipation 09/09/23 09/09/23 History folic acid 1 mg tablet 1 mg PO QAM 09/09/23 09/09/23 History levetiracetam 250 mg tablet 500 mg PO BID 09/09/23 09/09/23 History Inpatient Medication List Atorvastatin Calcium (Atorvastatin 40 Mg Tab) 80 mg PO DAILY GIBSON Stop: 10/10/23 08:59 Last Admin: 09/10/23 08:07 Dose: 80 mg Documented By: BRANDY Enoxaparin Sodium (Enoxaparin Inj 40 Mg/0.4 Ml Syr) 40 mg SQ Q24H GIBSON Stop: 10/10/23 08:59 Last Admin: 09/10/23 08:08 Dose: 40 mg Documented By: BRANDY Folic Acid (Folic Acid 1 Mg Tab) 1 mg PO QAM GIBSON Stop: 10/10/23 08:59 Last Admin: 09/10/23 08:07 Dose: 1 mg Documented By: BRANDY Lisinopril (Lisinopril 5 Mg Tab) 5 mg PO DAILY GIBSON Stop: 10/10/23 08:59 Last Admin: 09/10/23 08:07 Dose: 5 mg Documented By: BRANDY Loratadine (Loratadine 10 Mg Tab) 10 mg PO DAILY GIBSON Stop: 10/10/23 08:59 Last Admin: 09/10/23 08:07 Dose: 10 mg Documented By: BRANDY Memantine (Memantine Hcl 10 Mg Tab) 10 mg PO BID GIBSON Stop: 10/10/23 08:59 Last Admin: 09/10/23 08:07 Dose: 10 mg Documented By: BRANDY Metoprolol Succinate (Metoprolol Succ 25mg Ext Rel Tab) 12.5 mg PO DAILY GIBSON Stop: 10/10/23 08:59 Last Admin: 09/10/23 08:07 Dose: 12.5 mg Documented By: BRANDY Umeclidinium Bayside (Umeclidinium Bayside 62.5mcg/Blister 7 Puffs/Inhaler) 1 puffs INH DAILY GIBSON Stop: 10/10/23 08:59 Last Admin: 09/10/23 08:08 Dose: 1 puffs Documented By: BRANDY Vitamin D (Cholecalciferol 25 Mcg (1000 Units) Tab) 50 mcg PO DAILY GIBSON Stop: 10/10/23 08:59 Last Admin: 09/10/23 08:07 Dose: 50 mcg Documented By: BRANDY Discontinued Medications Gadobutrol (Gadobutrol 65ml Vial) 6.5 ml IV ONCE ONE Stop: 09/10/23 03:58 Last Admin: 09/10/23 03:58 Dose: 6.5 ml Documented By: HAYLEE Magnesium Sulfate/Dextrose (Magnesium Sulfate / D5w) 1 gm in 100 mls @ 100 mls/hr IV Q1H GIBSON Stop: 09/09/23 23:22 Last Infusion: 09/10/23 00:42 Dose: Infused Documented By: Admin: 09/09/23 23:31 Dose: 100 mls/hr Documented By: IDAlec Infusion: 09/09/23 23:15 Dose: Infused Documented By: Admin: 09/09/23 22:16 Dose: 100 mls/hr Documented By: RENETTA Calcium Gluconate () 1,000 mg in 60 mls @ 240 mls/hr IV NOW STA Stop: 09/09/23 21:38 Last Infusion: 09/09/23 22:02 Dose: Infused Documented By: Admin: 09/09/23 21:47 Dose: 240 mls/hr Documented By: RENETTA Potassium Chloride (K August / Wtr) 10 meq in 100 mls @ 100 mls/hr IV Q1H GIBSON Stop: 09/09/23 23:29 Last Infusion: 09/10/23 00:42 Dose: Infused Documented By: Admin: 09/09/23 23:31 Dose: 100 mls/hr Documented By: Infusion: 09/09/23 23:15 Dose: Infused Documented By: Admin: 09/09/23 22:16 Dose: 100 mls/hr Documented By: RENETTA Magnesium Sulfate/Dextrose (Magnesium Sulfate / D5w) 1 gm in 100 mls @ 50 mls/hr IV Q2H GIBSON Stop: 09/10/23 07:14 Last Admin: 09/10/23 06:02 Dose: 50 mls/hr Documented By: Infusion: 09/10/23 06:02 Dose: Infused Documented By: Admin: 09/10/23 04:27 Dose: 50 mls/hr Documented By: MARITA Magnesium Sulfate/Dextrose (Magnesium Sulfate / D5w) 1 gm in 100 mls @ 50 mls/hr IV Q2H GIBSON Stop: 09/10/23 12:29 Last Infusion: 09/10/23 13:51 Dose: Infused Documented By: Admin: 09/10/23 11:38 Dose: 50 mls/hr Documented By: Infusion: 09/10/23 11:27 Dose: Infused Documented By: Admin: 09/10/23 09:27 Dose: 50 mls/hr Documented By: BRANDY Levetiracetam (Levetiracetam 500 Mg Tab) 500 mg PO BID GIBSON Stop: 10/10/23 08:59 Last Admin: 09/10/23 08:07 Dose: 500 mg Documented By: BRANDY Levetiracetam (Levetiracetam 500 Mg/5 Ml Vial) 750 mg IV NOW STA Stop: 09/10/23 11:06 Last Admin: 09/10/23 11:53 Dose: 750 mg Documented By: CAREY Pantoprazole Sodium (Pantoprazole 40 Mg Tab) 40 mg PO DAILY GIBSON Stop: 10/10/23 08:59 Last Admin: 09/10/23 08:07 Dose: 40 mg Documented By: BRANDY Potassium Chloride (Potassium Chloride Crtab 20 Meq Tabcr) 40 meq PO NOW STA Stop: 09/10/23 02:08 Last Admin: 09/10/23 03:15 Dose: 40 meq Documented By: MARITA Potassium Chloride (Potassium Chloride Crtab 20 Meq Tabcr) 20 meq PO NOW STA Stop: 09/10/23 08:21 Last Admin: 09/10/23 09:27 Dose: 20 meq Documented By: BRANDY Description This is a 21 electrode EEG with a single channel dedicated to limited EKG. The electrodes were placed in accordance with the International 10-20 system. There is a posterior dominant rhythm of 9 Hz which is symmetrically distributed and attenuates with eye opening. There is a normal anterior to posterior organization. Photic stimulation is unremarkable. Hyperventilation not performed. There is a symmetric frontal beta rhythm. There is no focal slowing. There are no epileptiform abnormalities. Interpretation Normal-appearing awake/drowsy EEG. No epileptiform abnormalities or evidence of seizure activity. [facility] EEG Procedure Codes Indication for Procedure (1) Focal motor seizure: (2) Brain metastasis: (3) H/O craniotomy: Neurology Neurology: 29538 EEG include record awake & drowsy
[2023-09-10] MEDS: MIRTAZAPINE TAB 15 MG TAB PO SCH (20:36)
[2023-09-10] MEDS: MAGNESIUM OXIDE 400 MG TAB PO SCH (20:36)
--- NOTE | 2023-09-10 21:42 | Billing Data ---
Date of Service September 10, 2023 Coding Level of Care Code 52023 INT INP/OBS CARE
[2023-09-11 03:40] LABS: Basophils # (auto) 0.01 K/uL (0.00-0.20); Basophils % (auto) 0.2 %; Eosinophils # (auto) 0.04 K/uL (0.00-0.50); Eosinophils % (auto) 0.8 %; Hematocrit (blood only) 27.3 % (37.0-47.0); Hemoglobin 8.9 g/dl (12.0-16.0); Immature Granulocytes # (auto) 0.02 K/uL (0.01-0.20); Immature Granulocytes % (auto) 0.4 %; Lymphocytes # (auto) 1.13 K/uL (1.20-3.40); Lymphocytes % (auto) 21.6 %; Mean Corpuscular Hemoglobin 25.4 pg (25.0-34.0); Mean Corpuscular Hgb Conc 32.6 g/dL (32.0-36.0); Mean Platelet Volume 8.9 fL (9.4-12.4); Monocytes # (auto) 0.49 K/uL (0.11-0.59); Monocytes % (auto) 9.4 %; Neutrophils # (auto) 3.54 K/uL (1.40-6.50); Neutrophils % (auto) 67.6 %; Platelet Count 218 K/uL (130-400); RDW Coefficient of Variation 26.9 % (11.5-14.5); RDW Standard Deviation 71.4 fL (36.4-46.3); White Blood Count 5.23 K/ul (4.8-10.8)
[2023-09-11 03:57] LABS: Albumin Globulin Ratio 1.5 (0.9-2); Albumin Level 3.6 gm/dl (3.4-5.0); BUN Creatinine Ratio 15.8 (10-20); Bilirubin,Total 0.4 mg/dl (0.2-1.0); Calcium 8.7 mg/dl (8.6-10.3); Creatinine Clr Calc Pharmacy 49.5 ml/min; Est GFR (African American) 59.3 ml/min; Est GFR (Non-African American) 51.1 ml/min; Globulin 2.4 gm/dl (2.5-4.0); Magnesium 1.7 mg/dl (1.7-2.4); Potassium 3.6 mmol/L (3.5-5.1)
[2023-09-11 04:07] LABS: Anisocytosis Present; Ovalocytes 1+
[2023-09-11 04:12] LABS: Thyroid Stimulating Hormone 0.826 uIu/ml (0.300-4.500)
[2023-09-11 04:17] LABS: Ferritin 337.7 ng/ml (8-388)
[2023-09-11 04:32] LABS: Folate (Folic Acid),Ser orPlas 14.17 ng/ml (>5.38)
[2023-09-11 10:08] VITALS: BP 115/71; PULSE 88; RESP 16; TEMP 97.9; O2SAT 94
--- NOTE | 2023-09-11 13:01 | Discharge Summary ---
Date of Service September 11, 2023 Admission HPI Per Admitting Provider 63 yo female PMHx lung adenocarcinoma with mets to the brain s/p craniotomy and resection s/p radiation and chemo,hypertension, hyperlipidemia, COPD, GERD, vitamin D deficiency, muscle spasm, allergic rhinitis, tobacco use and alcohol use disorders and chronic pain syndrome. Admitted for R arm twitching and weakness that began today. She has a history of seizures but focal seizures are not her typical presentation. She has full recollection of the day's events, no LOC, no loss of bowel/bladder function. Denies DAMON, changes in vision, CP, SOB, N/V/D. She states that she has taken all of her medications including Keppra as prescribed. She is a current cigarette smoker (few cigarettes per day). She has not had any alcohol. Principal Diagnosis Focal motor seizure, hypomagnesemia, hypokalemia Discharge Exam General-alert and oriented x3, no fever, no chills HEENT-head atraumatic and normocephalic, , pupils equal and reactive to light, extraocular muscles intact Neck-no lymphadenopathy or thyromegaly, trachea midline Chest-clear to auscultation percussion. No rales, wheezing or rhonchi Cardiac-regular rate and rhythm, normal S1 and S2 Abdomen-normal bowel sounds, nontender, no hepatosplenomegaly Extremities-no cyanosis, clubbing, or edema Neuro-cranial nerves II through XII intact, motor and sensory function within normal limits, strength symmetrical, no focal deficits Psych-normal affect, normal mood Discharge Data Allergies Allergy/AdvReac Type Severity Reaction Status Date / Time No Known Allergies Allergy Unverified 07/30/23 11:17 Consultations 09/09/23 22:24 ED Decision to Admit Stat 09/10/23 02:07 Consult Neurology Routine Ordered Studies 09/09/23 20:49 CT head/brain wo con Stat 09/10/23 02:52 MR brain seizure wo/w con Stat Hospital Course (1) Focal motor seizure: Now resolved. Appreciate neurology consultation and recommendations. Keppra has been uptitrated to 1000 mg twice daily. Brain MRI scan reveals chronic findings. (2) Right arm weakness: chronic since brain surgery. Treated with OT and PT while hospitalized (3) Hypomagnesemia: Corrected with replacement therapy . Continue oral magnesium at discharge. (4) Anemia: hgb low but at baseline at 9.0, microcytic. History of iron deficiency (5) Acute hypokalemia: Corrected. (6) Hypertension: Stable. Continue metoprolol, lisinopril (7) Hyperlipidemia: Stable. Continue statin (8) GERD (gastroesophageal reflux disease): dc PPI due to severe hypomagnesemia (9) COPD (chronic obstructive pulmonary disease): Stable. Continue albuterol prn, Umeclidinium daily inhaler Plan Home today, September 11. Keppra has been increased to 1000 mg twice a day. Home health services requested Total Time Total Time Spent Total Time Spent (In Minutes): 45 minutes Discharge Plan Discharge Items Patient Disposition: Home - Home Health Services Reason For Visit: SEIZURE-LIKE ACTIVITY Discharge Diagnosis: Focal motor seizure, hypomagnesemia, hypokalemia Activity: Resume your previous activity Non-emergency contact: Primary Care Provider Call non-emergency contact if: your symptoms worsen Follow-up/Referrals: Amarilys Hamilton CRNP [Primary Care Provider] - Diet: Regular and Heart Healthy Addtl Attending Provider Instructions: Keppra has been increased to 1000 mg twice daily. Continue taking magnesium supplementation. Prescriptions have been sent to [facility] pharmacy. Omeprazole has been stopped since it might be contributing to low magnesium levels Pending Studies at Discharge: No Stand-Alone Forms: [facility], Smoking Cessation Medications and DC Order Prescriptions: New levetiracetam [Keppra] 1,000 mg tablet 1,000 mg PO BID Qty: 60 0RF magnesium oxide 400 mg (241.3 mg magnesium) Tablet 400 mg PO BID Qty: 60 0RF Continued memantine [Namenda] 10 mg tablet 10 mg PO BID Qty: 60 4RF atorvastatin 80 mg tablet 80 mg PO DAILY mirtazapine 30 mg tablet 30 mg PO HS hydroxyzine HCl 25 mg tablet 25 mg PO TID PRN (Reason: Anxiety) metoprolol succinate 25 mg tablet extended release 24 hr 12.5 mg PO DAILY loratadine 10 mg Tablet 10 mg PO DAILY Spiriva Respimat 2.5 mcg/actuation mist 2 puff INHALATION DAILY celecoxib 200 mg capsule 200 mg PO BID PRN (Reason: Pain) methocarbamol 750 mg tablet 750 mg PO BID PRN (Reason: Muscle Spasm) lisinopril 5 mg tablet 5 mg PO DAILY ProAir RespiClick 90 mcg/actuation aerosol powdr breath activated 2 inh INHALATION Q6 PRN (Reason: Shortness Of Breath Or Wheezing) albuterol sulfate 2.5 mg /3 mL (0.083 %) solution for nebulization 2.5 mg continuous nebulization .EVERY 4-6 PRN (Reason: Shortness Of Breath Or Wheezing) cholecalciferol (vitamin D3) [Vitamin D3] 50 mcg (2,000 unit) tablet 50 mcg PO DAILY docusate sodium 100 mg capsule 100 mg PO QID PRN (Reason: contipation) folic acid 1 mg tablet 1 mg PO QAM Discontinued omeprazole 40 mg capsule,delayed release(DR/EC) 40 mg PO DAILY levetiracetam 250 mg tablet 500 mg PO BID Discharge Orders: Discharge Order (Routine); Ordered 09/11/23 Ordered By: Power Dillon Admission Data Admit Date/Time: 09/09/23 23:42 Attending Provider: Power Dillon Admit Provider: Jeffery Dixon Primary Care Provider: Amarilys Hamilton Other Providers: Miguel Noyola; Amos Martinez; [facility],Home Healthcare Coding Level of Care Code 12731 INP/OBS DISCH >30 MIN Diagnoses Focal motor seizure G40.109 Right arm weakness R29.898 Hypomagnesemia E83.42 Anemia D64.9 Acute hypokalemia E87.6 Hypertension I10 Hyperlipidemia E78.5 GERD (gastroesophageal reflux disease) K21.9 COPD (chronic obstructive pulmonary disease) J44.9
== END 2023-09-11 14:41 | disposition home health service (06) | DRG 101 ==
LOC: ED 18:39 → SUATTDRO 23:42 → EDINP 23:42
DX: C79.31 Secondary malignant neoplasm of brain; G40.89 Other seizures; C34.90 Malignant neoplasm of unspecified part of unspecified bronchus or lung; K21.9 Gastro-esophageal reflux disease without esophagitis; Z92.3 Personal history of irradiation; M62.838 Other muscle spasm; F32.A Depression, unspecified; J44.9 Chronic obstructive pulmonary disease, unspecified; D64.9 Anemia, unspecified; E55.9 Vitamin D deficiency, unspecified; F41.9 Anxiety disorder, unspecified; R53.1 Weakness; E87.6 Hypokalemia; G89.4 Chronic pain syndrome; E83.51 Hypocalcemia; E83.42 Hypomagnesemia; E78.5 Hyperlipidemia, unspecified; I10 Essential (primary) hypertension

== ENCOUNTER 2024-05-20 10:38 | Inpatient (IN) ==
--- NOTE | 2024-05-20 10:47 | Emergency Department Note ---
Impression & Plan JUAN J (acute kidney injury) Admission ED Provider Note HPI: History obtained from patient and EMS report. 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 Patient states she is felt very ill for the past several days. She is currently on chemotherapy and her last session was 3 weeks ago, she states she is due for a session today. Patient states last night she also believes that she might of had a seizure. On arrival here to the ED the patient is frail- appearing, she does exhibit some active dry heaves, she is alert on arrival. On arrival here to the ED otherwise the patient is hemodynamically stable. ROS: - Per HPI Differential Diagnosis: Small bowel obstruction, viral gastroenteritis, adverse reaction to chemotherapy, acute kidney injury/dehydration, critical electrolyte abnormalities, intracranial hemorrhage, intracranial brain mass/tumor/metastatic disease, amongst other potential pathologies. *Outpatient medications and allergy history reviewed. PE: General: Alert, frail-appearing HEENT: Normocephalic, trachea midline Eyes: Extraocular eye movement is intact, no scleral erythema Pulmonary: Clear to auscultation bilaterally, no wheezing Cardio: Regular rate and rhythm GI: Abdomen is soft to palpation, there is some minimal tenderness to palpation without any guarding or rigidity, no distention : No suprapubic tenderness MSK: No evidence of trauma or malformation of the extremities, no edema Skin: No evidence of rash Neuro: Alert, no focal deficits Psychiatric: Cooperative INDEPENDENT INTERPRETATIONS: privacy analyst: (As interpreted by myself): - An order was placed for continuous cardiac monitoring - Patient was noted to be in sinus rhythm with a rate of 92 EKG: (As interpreted by myself): Rate: 110 Rhythm: Probable sinus rhythm Intervals: QTc 644 ms, otherwise within normal limits ST changes: No ST elevation Time: 1047 Chest x-ray: (As interpreted by myself): No acute disease Interventions provided in ED: -IV fluid bolus, IV Zofran, IV Keppra Medical Decision Making: IV was established and lab work obtained, patient was placed on chief cruiser. Lab work shows no leukocytosis, hemoglobin is normal at 12.0, platelet count is normal, CMP shows hyponatremia at 147, creatinine is elevated at 2.41, BUN is also elevated at 40. Troponin is mildly elevated 26.9, patient denies any chest pain, EKG does not show any acute ischemic changes per my interpretation. There is no transaminitis, bilirubin is normal, lactic acid is normal, lipase is also normal. CT imaging of the head does not show any evidence of any acute intracranial process, CT imaging of the abdomen pelvis does not show any evidence of small bowel obstruction. On my reassessment the patient appears improved, she remained stable on the monitor, she has had episodes of hypotension into the 80s that are asymptomatic and responded well to IV fluids. I suspect the patient's symptoms are related to dehydration, possibly from a viral gastroenteritis. Given her acute kidney injury and hypernatremia, in addition to her comorbidities including adenocarcinoma of the lung on chemotherapy, I feel she would benefit from admission for fluid resuscitation and management of her nausea. I discussed the patient's case with the on-call hospitalist, Dr. Antony, and he is in agreement for admission. In regards to the patient's seizure, she states last night she thinks she might of had a seizure because she had some focal shaking in her arm. It appears that she has had similar events in the past that were thought to be focal seizures. She denies any loss of consciousness. She was covered here in the ED with a dose of IV Keppra. Patient did not exhibit any seizure-like activity while here in the ED. Patient was placed for admission in stable condition. Consultants/Discussions held with other healthcare providers: -Hospitalist, Dr. Antony Disposition discussion held by myself with: -Patient and patient's friend at the bedside Diagnosis: 1. Acute kidney injury 2. Elevated BUN 3. Hypernatremia 4. History of adenocarcinoma of the lung, on chemotherapy 5. 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 Focal motor seizure B12 deficiency Dilated bile duct Hypomagnesemia DVT prophylaxis Tachycardia Iron deficiency anemia Fatigue Frontal headache Alcohol use disorder Tobacco use disorder Seizure-like activity Muscle spasm Vitamin D deficiency Osteoarthritis Vasogenic brain edema Traumatic hematoma of forehead (Acute) Focal seizure (Acute) Medical History Anemia Muscle spasm Brain metastasis Right arm weakness Brain lesion Anxiety Allergic rhinitis Depression GERD (gastroesophageal reflux disease) COPD (chronic obstructive pulmonary disease) Hyperlipidemia Hypertension Surgical History H/O craniotomy 06/05/23 - History of surgery For right arm fracture S/P hysterectomy Family History Mother , age 69 of liver cancer Liver cancer Father , in his early 70s Myocardial infarction Temporary pacemaker Brother Myocardial infarction Sister Stroke Hypertension Daughter No problems noted. Social History Smoking Status: Current every day smoker Tobacco Type: Cigarettes Age Started Using Tobacco: 16; packs per day: 0.25; Cigarettes Per Day: 1/2 pack to 1 pack for the past 40-50 years; Second Hand Exposure: No; Do You Dip or Chew Tobacco: No; Hx Alcohol Use: Yes Alcohol type: hard liquor Alcohol Intake Frequency: 2-4 x/Month Hx Substance Use: No Preferred Language: Romanian Communication Ability: Effective Visual Impairment: No Limitations Hearing Ability: Normal Streetcar Dispatcher Required: No Beliefs That Will Affect Care: None marital status: / Current Living Situation: Alone current occupational status: retired 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 How many Children do You have: 1 Feels Safe at Home: Yes Diet: regular caffeine: Yes (1 cup/day) during the past year weight has: remained stable Assistive Devices: None Allergies Allergies Allergy/AdvReac Type Severity Reaction Status Date / Time No Known Allergies Allergy Unverified 05/20/24 12:50 Home Meds Home Medications Medication Instructions Recorded Confirmed albuterol sulfate 2.5 mg/3 mL 2.5 mg continuous nebulization UD 06/02/23 05/20/24 (0.083 %) solution for nebulization PRN Shortness Of Breath Or Wheezing atorvastatin 80 mg tablet 80 mg PO DAILY 06/02/23 05/20/24 cholecalciferol (vitamin D3) 50 50 mcg PO DAILY 06/02/23 05/20/24 mcg (2,000 unit) tablet (Vitamin D3) hydroxyzine HCl 25 mg tablet 25 mg PO TID PRN Anxiety 06/02/23 05/20/24 mirtazapine 30 mg tablet 30 mg PO HS 06/02/23 05/20/24 tiotropium bromide 2.5 2 puff inhalation DAILY 06/02/23 05/20/24 mcg/actuation mist for inhalation (Spiriva Respimat) docusate sodium 100 mg capsule 100 mg PO QID PRN contipation 09/09/23 05/20/24 cetirizine 10 mg tablet 10 mg PO DAILY 05/20/24 05/20/24 fenofibrate 160 mg tablet 160 mg PO DAILY 05/20/24 05/20/24 ondansetron HCl 8 mg tablet 8 mg PO Q8H PRN Nausea 05/20/24 05/20/24 potassium chloride 10 mEq 10 meq PO BID 05/20/24 05/20/24 tablet,extended release(part/cryst) sennosides 8.6 mg tablet (senna) 8.6 mg PO BID 05/20/24 05/20/24 Previous Rx's Medication Instructions Recorded levetiracetam 1,000 mg tablet 1,000 mg PO BID #60 tabs 09/11/23 (Keppra) magnesium oxide 400 mg (241.3 mg 400 mg PO BID #60 tabs 09/11/23 magnesium) tablet pantoprazole 40 mg tablet,delayed 40 mg PO DAILY #30 tabs 05/13/24 release (Protonix) promethazine 6.25 mg/5 mL oral 6.25 mg (5 mL) PO TID PRN nausea 05/13/24 syrup and vomiting #120 mL Results & Data (ED) Vital Signs Vital Signs - 24 hr 05/20/24 10:44 05/20/24 10:47 05/20/24 10:48 Temperature 36.7 C Temperature Source Oral Pulse Rate 108 H 109 H Pulse Rate [Apical] Pulse Rate from SpO2 Sensor Respiratory Rate 20 Respiratory Effort / Characteristics Non-Labored Spontaneous Respiratory Depth Normal Respiratory Pattern Regular Blood Pressure 99/73 L Blood Pressure [Right Arm] Blood Pressure Mean 81 Blood Pressure Mean [Right Arm] Blood Pressure Position Lying Pulse Oximetry 95 95 94 Oxygen Delivery Method Room Air Room Air Room Air Sepsis Recent Fever Within 48 Hours No Sepsis New/Unexplained Change in Mental Status N/A Sepsis Action Taken by Nursing Physician Notified 05/20/24 11:16 05/20/24 11:30 05/20/24 11:30 Temperature Temperature Source Pulse Rate Pulse Rate [Apical] Pulse Rate from SpO2 Sensor Respiratory Rate Respiratory Effort / Characteristics Respiratory Depth Respiratory Pattern Blood Pressure 98/73 L 95/68 L 95/68 L Blood Pressure [Right Arm] Blood Pressure Mean 81 73 73 Blood Pressure Mean [Right Arm] Blood Pressure Position Pulse Oximetry Oxygen Delivery Method Sepsis Recent Fever Within 48 Hours Sepsis New/Unexplained Change in Mental Status Sepsis Action Taken by Nursing 05/20/24 11:36 05/20/24 11:42 05/20/24 11:48 Temperature Temperature Source Pulse Rate 105 H 101 H Pulse Rate [Apical] Pulse Rate from SpO2 Sensor Respiratory Rate 19 22 Respiratory Effort / Characteristics Respiratory Depth Respiratory Pattern Blood Pressure 92/78 L Blood Pressure [Right Arm] Blood Pressure Mean 85 Blood Pressure Mean [Right Arm] Blood Pressure Position Pulse Oximetry Oxygen Delivery Method Sepsis Recent Fever Within 48 Hours Sepsis New/Unexplained Change in Mental Status Sepsis Action Taken by Nursing 05/20/24 11:54 05/20/24 12:12 05/20/24 12:13 Temperature Temperature Source Pulse Rate 102 H 108 H Pulse Rate [Apical] Pulse Rate from SpO2 Sensor 102 H Respiratory Rate 19 25 H Respiratory Effort / Characteristics Respiratory Depth Respiratory Pattern Blood Pressure 93/63 L Blood Pressure [Right Arm] Blood Pressure Mean 78 Blood Pressure Mean [Right Arm] Blood Pressure Position Pulse Oximetry 96 Oxygen Delivery Method Sepsis Recent Fever Within 48 Hours Sepsis New/Unexplained Change in Mental Status Sepsis Action Taken by Nursing 05/20/24 12:24 05/20/24 12:25 05/20/24 12:25 Temperature Temperature Source Pulse Rate 106 H Pulse Rate [Apical] Pulse Rate from SpO2 Sensor 105 H Respiratory Rate 21 Respiratory Effort / Characteristics Respiratory Depth Respiratory Pattern Blood Pressure 92/61 L 92/61 L Blood Pressure [Right Arm] Blood Pressure Mean 78 78 Blood Pressure Mean [Right Arm] Blood Pressure Position Pulse Oximetry 97 Oxygen Delivery Method Sepsis Recent Fever Within 48 Hours Sepsis New/Unexplained Change in Mental Status Sepsis Action Taken by Nursing 05/20/24 12:30 05/20/24 12:38 05/20/24 12:44 Temperature Temperature Source Pulse Rate 102 H 94 H Pulse Rate [Apical] Pulse Rate from SpO2 Sensor 102 H Respiratory Rate 21 Respiratory Effort / Characteristics Respiratory Depth Respiratory Pattern Blood Pressure 104/65 Blood Pressure [Right Arm] Blood Pressure Mean 80 Blood Pressure Mean [Right Arm] Blood Pressure Position Pulse Oximetry 97 Oxygen Delivery Method Sepsis Recent Fever Within 48 Hours Sepsis New/Unexplained Change in Mental Status Sepsis Action Taken by Nursing 05/20/24 12:47 Temperature Temperature Source Pulse Rate Pulse Rate [Apical] 95 H Pulse Rate from SpO2 Sensor Respiratory Rate 22 Respiratory Effort / Characteristics Respiratory Depth Normal Respiratory Pattern Blood Pressure Blood Pressure [Right Arm] 114/65 Blood Pressure Mean Blood Pressure Mean [Right Arm] 81 Blood Pressure Position Pulse Oximetry 98 Oxygen Delivery Method Room Air Sepsis Recent Fever Within 48 Hours Sepsis New/Unexplained Change in Mental Status Sepsis Action Taken by Nursing Laboratory Data 05/20/24 11:17 05/20/24 11:17 Lab Results 05/20/24 Range/Units 11:17 WBC 10.26 (4.8-10.8) K/ul RBC 3.77 L (4.20-5.40) M/uL Hgb 12.0 (12.0-16.0) g/dl Hct 34.7 L (37.0-47.0) % MCV 92.0 (80.0-100.0) fL MCH 31.8 (25.0-34.0) pg MCHC 34.6 (32.0-36.0) g/dL RDW Std Deviation 42.4 (36.4-46.3) fL RDW Coeff of Micheal 12.5 (11.5-14.5) % Plt Count 277 (130-400) K/uL MPV 9.7 (9.4-12.4) fL Immature Gran % (Auto) 0.4 % Neut % (Auto) 74.0 % Lymph % (Auto) 14.0 % [place] % (Auto) 10.5 % Eos % (Auto) 0.7 % Baso % (Auto) 0.4 % Neut # (Auto) 7.59 H (1.40-6.50) K/uL Lymph # (Auto) 1.44 (1.20-3.40) K/uL [place] # (Auto) 1.08 H (0.11-0.59) K/uL Eos # (Auto) 0.07 (0.00-0.50) K/uL Baso # (Auto) 0.04 (0.00-0.20) K/uL Immature Gran # (Auto) 0.04 (0.01-0.20) K/uL PT 13.3 H (9.0-12.0) Seconds INR 1.2 H (0.9-1.1) Sodium 147 H (136-145) mmol/L Potassium 3.7 (3.5-5.1) mmol/L Chloride 109 H (98-107) mmol/L Carbon Dioxide 26 (21-32) mmol/L Anion Gap 12 H (3-11) BUN 40 H (6-23) mg/dl Creatinine 2.41 H (0.6-1.2) mg/dl Est Cr Clr Drug Dosing 16.9 ml/min eGFR 21.89 BUN/Creatinine Ratio 16.6 (10-20) Glucose 132 H (70-99(Fasting)) mg/dl Lactate 1.8 (0.4-2.0) mmol/L Calcium 9.2 (8.6-10.3) mg/dl Total Bilirubin 0.5 (0.2-1.0) mg/dl AST 25 (13-39) U/L ALT 22 (7-52) U/L Alkaline Phosphatase 28 L (34-104) U/L Troponin I High Sens 26.9 H (0-14) pg/ml Total Protein 6.7 (6.0-8.3) gm/dl Albumin 4.1 (3.4-5.0) gm/dl Globulin 2.6 (2.5-4.0) gm/dl Albumin/Globulin Ratio 1.6 (0.9-2) Lipase 59 (11-82) U/L Administered Medications Discontinued Medications Lactated Ringer's (Lr) 1,000 mls @ 999 mls/hr IV .Q1H1M ONE Stop: 05/20/24 13:09 Last Admin: 05/20/24 12:24 Dose: 999 mls/hr Documented By: PER Famotidine (Pepcid 20mg Iv Push) 20 mg in 5 mls @ 2.5 mls/min IV NOW STA Stop: 05/20/24 12:56 Last Admin: 05/20/24 13:02 Dose: 2.5 mls/min Documented By: PER Levetiracetam (Levetiracetam 500 Mg/5 Ml Vial) 1,000 mg IV NOW STA Stop: 05/20/24 10:48 Last Admin: 05/20/24 11:02 Dose: 1,000 mg Documented By: PER Ondansetron HCl (Ondansetron Inj 2 Mg/Ml 2 Ml Vial) 4 mg IV NOW STA Stop: 05/20/24 10:45 Last Admin: 05/20/24 11:02 Dose: 4 mg Documented By: PER Imaging Data Radiologist's Impression: Chest X-Ray 05/20/24 10:45 XR chest 1V portable CLINICAL HISTORY: Nausea and vomiting. COMPARISON STUDY: Chest CT June 01, 2023. Chest radiograph September 09, 2023. FINDINGS: Lung volumes are normal. Lungs are clear. There is no pneumothorax or pleural effusion. Cardiac size is normal. Mediastinal contours are normal. There is no evidence for pulmonary edema. IMPRESSION: No acute cardiopulmonary findings. ACT 112: Negative or not required by law. Electronically signed by: Leo Bae M.D. 05/20/2024 11:[address] 05/20/24 10:47 CT head/brain wo con CLINICAL HISTORY: seizure, hx brain mets Technique: Contiguous axial CT images of the head were acquired from the base of the skull to the vertex without intravenous contrast administration. Images were viewed in brain, subdural and bone windows. Automated dose lowering techniques and/or adjustment according to patient size were utilized for this exam. Comparison: Comparison is made to CT head 09/09/2023 Findings: The ventricles, basal cisterns, and cerebral sulci are normal. There is no acute intracranial hemorrhage or evidence of acute territorial infarction. Neither mass effect, shift of the midline structures, nor abnormal extra-axial fluid collections are shown. Postsurgical changes of left craniotomy are seen Imaged portions of the paranasal sinuses and mastoid air cells are clear. The orbits appear normal. There are no acute fractures of the calvaria or scalp swelling. Impression: No acute intracranial hemorrhage, no evidence of acute territorial infarction or other acute intracranial disease process. ACT 112: Negative or not required by law. Electronically signed by: Byron Jain M.D. 05/20/2024 12:33 PM Abdomen/Pelvis CT 05/20/24 12:05 CT OF THE ABDOMEN AND PELVIS WITHOUT CONTRAST CLINICAL HISTORY: Nausea and vomiting. COMPARISON STUDY: CT of the abdomen and pelvis June 01, 2023. PET/CT July 11, 2023. TECHNIQUE: Axial images of the abdomen and pelvis were obtained without IV contrast. Images were reviewed in the axial, sagittal, and coronal planes. Automated exposure control was utilized for the study. A dose lowering technique was utilized adhering to the principles of ALARA. FINDINGS: Note is made of moderate circumferential wall thickening of visualized portions of the distal esophagus with adjacent mediastinal fluid. There is no pneumomediastinum within visualized portions of the mediastinum. Prominent paraesophageal lymph nodes measure up to 1.2 x 0.6 cm. There is no consolidation within the lung bases. Evaluation of the abdomen and pelvis is suboptimal on this unenhanced exam. There is no pneumatosis, free air or portal venous gas. Unenhanced images of the liver, spleen, adrenal glands and pancreas are unremarkable. Dilatation of the distal common bile duct remains unchanged. There is no intrahepatic biliary ductal dilatation. Water attenuation bilateral renal lesions favor cysts. There is no hydronephrosis. The stomach is mildly fluid- filled. There are several prominent fluid-filled loops of small bowel without transition point. There is no lymphadenopathy within the abdomen or pelvis. No fluid collections are present. IMPRESSION: 1. Distal esophageal wall thickening with adjacent mediastinal fluid. The findings favor esophagitis. Adjacent prominent paraesophageal lymph nodes which are indeterminate and can be assessed on follow-up exams. 2. Mildly fluid-filled stomach and small bowel. No transition site to suggest a bowel obstruction. The findings may reflect gastroenteritis. 3. No urinary calculi or hydronephrosis. ACT 112: Negative or not required by law. Electronically signed by: Leo Bae M.D. 05/20/2024 12:40 PM Discharge Plan Visit Data Chief Complaint: Weakness Stated Complaint: LETHARGIC, WEAKNESS ED Provider: Sarbjit Pineda Discharge Problem: JUAN J (acute kidney injury) Forms Stand Alone Forms: My [facility] Prescriptions Prescriptions: No Action atorvastatin 80 mg tablet 80 mg PO DAILY mirtazapine 30 mg tablet 30 mg PO HS hydroxyzine HCl 25 mg tablet 25 mg PO TID PRN (Reason: Anxiety) Spiriva Respimat 2.5 mcg/actuation mist 2 puff INHALATION DAILY albuterol sulfate 2.5 mg /3 mL (0.083 %) solution for nebulization 2.5 mg continuous nebulization UD PRN (Reason: Shortness Of Breath Or Wheezing) Rx Instructions: Every 4-6 hours cholecalciferol (vitamin D3) [Vitamin D3] 50 mcg (2,000 unit) tablet 50 mcg PO DAILY docusate sodium 100 mg capsule 100 mg PO QID PRN (Reason: contipation) levetiracetam [Keppra] 1,000 mg tablet 1,000 mg PO BID Qty: 60 0RF magnesium oxide 400 mg (241.3 mg magnesium) Tablet 400 mg PO BID Qty: 60 0RF sennosides [senna] 8.6 mg tablet 8.6 mg PO BID cetirizine 10 mg tablet 10 mg PO DAILY ondansetron HCl 8 mg tablet 8 mg PO Q8H PRN (Reason: Nausea) potassium chloride 10 mEq tablet,ER particles/crystals 10 meq PO BID fenofibrate 160 mg tablet 160 mg PO DAILY pantoprazole [Protonix] 40 mg tablet,delayed release (DR/EC) 40 mg PO DAILY Qty: 30 0RF promethazine 6.25 mg/5 mL syrup 6.25 mg PO TID PRN (Reason: nausea and vomiting) Qty: 120 0RF Rx Instructions: May make you dizzy or drowsy Referrals Referrals: Amarilys Hamilton CRNP [Primary Care Provider] -
[2024-05-20] MEDS: levETIRAcetam 500 MG/5 ML VIAL IV STA (11:02)
[2024-05-20] MEDS: ONDANSETRON INJ 2 MG/ML 2 ML VIAL IV STA (11:02)
--- NOTE | 2024-05-20 11:20 | XRay Report ---
XR chest 1V portable CLINICAL HISTORY: Nausea and vomiting. COMPARISON STUDY: Chest CT June 01, 2023. Chest radiograph September 09, 2023. FINDINGS: Lung volumes are normal. Lungs are clear. There is no pneumothorax or pleural effusion. Car diac size is normal. Mediastinal contours are normal. There is no evidence for pulmonary edema. IMPRESSION: No acute cardiopulmonary findings. ACT 112: Negative or not required by law. Electronically signed by: Leo Bae M.D. 05/20/2024 11:18 AM
[2024-05-20 11:51] LABS: Basophils # (auto) 0.04 K/uL (0.00-0.20); Basophils % (auto) 0.4 %; Eosinophils # (auto) 0.07 K/uL (0.00-0.50); Eosinophils % (auto) 0.7 %; Hematocrit (blood only) 34.7 % (37.0-47.0); Immature Granulocytes # (auto) 0.04 K/uL (0.01-0.20); Immature Granulocytes % (auto) 0.4 %; Lymphocytes # (auto) 1.44 K/uL (1.20-3.40); Mean Corpuscular Hemoglobin 31.8 pg (25.0-34.0); Mean Corpuscular Hgb Conc 34.6 g/dL (32.0-36.0); Mean Platelet Volume 9.7 fL (9.4-12.4); Monocytes # (auto) 1.08 K/uL (0.11-0.59); Monocytes % (auto) 10.5 %; Neutrophils # (auto) 7.59 K/uL (1.40-6.50); Platelet Count 277 K/uL (130-400); RDW Coefficient of Variation 12.5 % (11.5-14.5); RDW Standard Deviation 42.4 fL (36.4-46.3); Red Blood Count 3.77 M/uL (4.20-5.40); White Blood Count 10.26 K/ul (4.8-10.8)
[2024-05-20 11:57] LABS: Albumin Globulin Ratio 1.6 (0.9-2); Albumin Level 4.1 gm/dl (3.4-5.0); BUN Creatinine Ratio 16.6 (10-20); Bilirubin,Total 0.5 mg/dl (0.2-1.0); Calcium 9.2 mg/dl (8.6-10.3); Creatinine Clr Calc Pharmacy 16.9 ml/min; Globulin 2.6 gm/dl (2.5-4.0); Potassium 3.7 mmol/L (3.5-5.1); Total Protein 6.7 gm/dl (6.0-8.3)
[2024-05-20 12:03] LABS: Troponin I High Sensitivity 26.9 pg/ml (0-14)
[2024-05-20 12:14] LABS: INR 1.2 (0.9-1.1); Prothrombin Time 13.3 Seconds (9.0-12.0)
[2024-05-20] MEDS: LACTATED RINGER'S 1,000 ML IV ONE ×2 (12:24→14:06)
--- NOTE | 2024-05-20 12:24 | Electrocardiogram Report ---
Test Reason : Blood Pressure : */* mmHG Vent. Rate : 110 BPM Atrial Rate : * BPM P-R Int : * ms QRS Dur : 82 ms QT Int : 476 ms P-R-T Axes : * 89 79 degrees QTcB Int : 644 ms Sinus tachycardia with 1st degree A-V block Prolonged QT Abnormal ECG When compared with ECG of 13-May-2024 13:11, HR has increased by [address] now depressed in Anterior leads T wave inversion now evident in Anterior leads Confirmed by Eloy Marquez ([id number]) on 05/20/2024 12:23:50 PM Referred By: REFERRED SELF Confirmed By: Eloy Marquez
--- NOTE | 2024-05-20 12:35 | CT Scan Report ---
CT head/brain wo con CLINICAL HISTORY: seizure, hx brain mets Technique: Contiguous axial CT images of the head were acquired from the base of the skull to the yvonne ben without intravenous contrast administration. Images were viewed in brain, subdural and bone [facility]. Automated dose lowering techniques and/or adjustment according to patient size were utilized for this exam. Comparison: Comparison is made to CT head 09/09/2023 Findings: The ventricles, basal cisterns, and cerebral sulci are normal. There is no acute intracranial hemorrh age or evidence of acute territorial infarction. Neither mass effect, shift of the midline structures , nor abnormal extra-axial fluid collections are shown. Postsurgical changes of left craniotomy are seen Imaged portions of the paranasal sinuses and mastoid air cells are clear. The orbits appear normal. There are no acute fractures of the calvaria or scalp swelling. Impression: No acute intracranial hemorrhage, no evidence of acute territorial infarction or other acute intracra nial disease process. ACT 112: Negative or not required by law. Electronically signed by: Byron Jain M.D. 05/20/2024 12:33 PM
--- NOTE | 2024-05-20 12:41 | CT Scan Report ---
CT OF THE ABDOMEN AND PELVIS WITHOUT CONTRAST CLINICAL HISTORY: Nausea and vomiting. COMPARISON STUDY: CT of the abdomen and pelvis June 01, 2023. PET/CT July 11, 2023. TECHNIQUE: Axial images of the abdomen and pelvis were obtained without IV contrast. Images were revi ewed in the axial, sagittal, and coronal planes. Automated exposure control was utilized for the mathew dy. A dose lowering technique was utilized adhering to the principles of ALARA. FINDINGS: Note is made of moderate circumferential wall thickening of visualized portions of the dist al esophagus with adjacent mediastinal fluid. There is no pneumomediastinum within visualized portion s of the mediastinum. Prominent paraesophageal lymph nodes measure up to 1.2 x 0.6 cm. There is no co nsolidation within the lung bases. Evaluation of the abdomen and pelvis is suboptimal on this unenhan erinn exam. There is no pneumatosis, free air or portal venous gas. Unenhanced images of the liver, spl een, adrenal glands and pancreas are unremarkable. Dilatation of the distal common bile duct remains unchanged. There is no intrahepatic biliary ductal dilatation. Water attenuation bilateral renal lesi ons favor cysts. There is no hydronephrosis. The stomach is mildly fluid-filled. There are several pr ominent fluid-filled loops of small bowel without transition point. There is no lymphadenopathy withi n the abdomen or pelvis. No fluid collections are present. IMPRESSION: 1. Distal esophageal wall thickening with adjacent mediastinal fluid. The findings favor esophagitis. Adjacent prominent paraesophageal lymph nodes which are indeterminate and can be assessed on follow- up exams. 2. Mildly fluid-filled stomach and small bowel. No transition site to suggest a bowel obstruction. Th e findings may reflect gastroenteritis. 3. No urinary calculi or hydronephrosis. ACT 112: Negative or not required by law. Electronically signed by: Leo Bae M.D. 05/20/2024 12:40 PM
[2024-05-20] MEDS: FAMOTIDINE 20MG IV PUSH 20 MG/5 ML SYR IV STA (13:02)
--- NOTE | 2024-05-20 13:02 | History & Physical Report ---
Date of Service May 20, 2024 Assessment & Plan (1) JUAN J (acute kidney injury): Plan: Suspected pre-renal due to N&V No post renal cause on CT UA pending LR 1L bolus in the ER, additional 1L now then D5 half NSS + KCl @ 100ml/hr overnight Repeat BMP in AM (2) Prolonged QT interval: Plan: Hold further ondansetron/Compazine, hold mirtazapine, monitor on telemetry Daily EKG (3) Nausea & vomiting: Plan: ?secondary to Keytruda +/- esophagitis, UA pending for infection 1st line: Phenergan 6.25 mg PO TID PRN 2nd line Metoclopramide 10mg IV q6h PRN (4) Esophagitis: Plan: Suspected cause of her abdominal pain. No thrush on exam. Pantoprazole and famotidine IV now, then switch back to PO daily with addition of famotidine tomorrow Add Carafate If not resolving Keytruda can cause immunotherapy related toxicity that can last for months after last injection which improves with steroids, but would favor above treatment acutely (5) Skin lesions: Plan: Possibly Keytruda related. Consider dermatology follow up (6) Hypomagnesemia: Plan: Mg level 1.4 Mg Sulfate 2g IV Repeat with AM labs (7) Adenocarcinoma of left lung: Plan: Under [facility] on Keytruda alone 3 weekly injections Plan VTE Prophylaxis - heparin 5000 units SQ BID Diet - clear liquids, advance as tolerated Disposition - admit to med/tele Admission and Anticipated Discharge Date Admission Date: May 20, 2024 History of Present Illness Chief Complaint: Nausea, vomiting Primary Care Provider: LUCHO Johnsonjennifer Johnston is a 64 year old female with left lung adenocarcinoma on 3 weekly Keytruda injections who presents to the ER with nausea, vomiting, chills and abdominal pain. She notes generalized abdominal pain for the last 2 days but appears improved today. Cramping severity, currently severity 5/10 but comes and goes. Associated nausea and vomiting with decreased appetite. She has not eaten or drunk much in the last 3 days. No fevers, dysphagia or odynophagia. 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 She always feels cold since starting Keytruda in in September. She notes ongoing back pain stable for the last 3 months. New cough for the last 2 days and feels she cannot get enough air while coughing but otherwise not short of breath. No nasal congestion or sinus pain. Cough is non productive. No urinary symptoms. She did not take any of her usual medications this morning. Allergies Allergy/AdvReac Type Severity Reaction Status Date / Time No Known Allergies Allergy Unverified 05/20/24 12:50 Home Medications Medication Instructions Recorded Confirmed Type albuterol sulfate 2.5 mg/3 mL 2.5 mg continuous nebulization UD 06/02/23 05/20/24 History (0.083 %) solution for nebulization PRN Shortness Of Breath Or Wheezing atorvastatin 80 mg tablet 80 mg PO DAILY 06/02/23 05/20/24 History cholecalciferol (vitamin D3) 50 50 mcg PO DAILY 06/02/23 05/20/24 History mcg (2,000 unit) tablet (Vitamin D3) hydroxyzine HCl 25 mg tablet 25 mg PO TID PRN Anxiety 06/02/23 05/20/24 History mirtazapine 30 mg tablet 30 mg PO HS 06/02/23 05/20/24 History tiotropium bromide 2.5 2 puff inhalation DAILY 06/02/23 05/20/24 History mcg/actuation mist for inhalation (Spiriva Respimat) docusate sodium 100 mg capsule 100 mg PO QID PRN contipation 09/09/23 05/20/24 History levetiracetam 1,000 mg tablet 1,000 mg PO BID #60 tabs 09/11/23 05/20/24 Rx (Keppra) magnesium oxide 400 mg (241.3 mg 400 mg PO BID #60 tabs 09/11/23 05/20/24 Rx magnesium) tablet pantoprazole 40 mg tablet,delayed 40 mg PO DAILY #30 tabs 05/13/24 05/20/24 Rx release (Protonix) promethazine 6.25 mg/5 mL oral 6.25 mg (5 mL) PO TID PRN nausea 05/13/24 05/20/24 Rx syrup and vomiting #120 mL cetirizine 10 mg tablet 10 mg PO DAILY 05/20/24 05/20/24 History fenofibrate 160 mg tablet 160 mg PO DAILY 05/20/24 05/20/24 History ondansetron HCl 8 mg tablet 8 mg PO Q8H PRN Nausea 05/20/24 05/20/24 History potassium chloride 10 mEq 10 meq PO BID 05/20/24 05/20/24 History tablet,extended release(part/cryst) sennosides 8.6 mg tablet (senna) 8.6 mg PO BID 05/20/24 05/20/24 History Past Med/Surg History Problem List (Updated 05/21/24 @ 06:59 by Paolo Antony MD) Adenocarcinoma of left lung Skin lesions Esophagitis JUAN J (acute kidney injury) Prolonged QT interval Generalized weakness (Acute) Nausea & vomiting (Acute) Hypocalcemia (Acute) Acute hypokalemia (Acute) Hypomagnesemia (Acute) 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 Focal motor seizure B12 deficiency Dilated bile duct Hypomagnesemia Tachycardia Iron deficiency anemia Fatigue Frontal headache Alcohol use disorder Tobacco use disorder Seizure-like activity Muscle spasm Vitamin D deficiency Osteoarthritis Vasogenic brain edema Traumatic hematoma of forehead (Acute) Focal seizure (Acute) Medical History Anemia Muscle spasm Brain metastasis Right arm weakness Brain lesion Anxiety Allergic rhinitis Depression GERD (gastroesophageal reflux disease) COPD (chronic obstructive pulmonary disease) Hyperlipidemia Hypertension Surgical History H/O craniotomy 06/05/23 - History of surgery For right arm fracture S/P hysterectomy Family History Mother , age 69 of liver cancer Liver cancer Father , in his early 70s Myocardial infarction Temporary pacemaker Brother Myocardial infarction Sister Stroke Hypertension Daughter No problems noted. Social History Smoking Status: Current every day smoker Tobacco Type: Cigarettes Age Started Using Tobacco: 16; packs per day: 0.25; Cigarettes Per Day: 1/2 pack to 1 pack for the past 40-50 years; Second Hand Exposure: Yes; Do You Dip or Chew Tobacco: No; Tobacco Cessation Education Requested by Patient: No Hx Alcohol Use: No Hx Substance Use: No Preferred Language: Greenlandic Communication Ability: Effective Visual Impairment: No Limitations Hearing Ability: Normal Manager Employment Required: No Beliefs That Will Affect Care: None marital status: / Current Living Situation: Alone current occupational status: retired 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 How many Children do You have: 1 Other Information That Helps Us Care for You: No Feels Safe at Home: Yes Safety Concerns: Feels Safe At This Time Diet: regular caffeine: Yes (1 cup/day) during the past year weight has: remained stable Assistive Devices: Walker Review of Systems Review of Systems: All systems reviewed & are unremarkable except as noted in HPI & below Physical Exam Constitutional: well developed; + not well nourished and no acute distress Eyes: PERRL, conjunctivae normal, anicteric sclerae ENMT: external ear and nose normal, oropharynx normal Respiratory: normal respiratory effort, lungs clear to auscultation Cardiovascular: RRR, no murmur, no edema Gastrointestinal (Abdomen): Inspection/Auscultation: abdomen normal to inspection; abdomen not distended Percussion/Palpation: + abdomen tender (mild epigastric) and abdomen soft; no guarding and abdomen not rigid Musculoskeletal: no cyanosis or clubbing, extremities motor strength 5/5 Skin: papular skin lesion on nose and all 4 extremities without surrounding erythema Neurologic: moves all extremities and awake; not confused Psychiatric: A+Ox3, euthymic affect Results & Data Results & Data Vital Signs (Past 12 Hours) Vital Signs Temp Pulse Pulse Resp BP BP Pulse Ox 05/20/24 12:47 95 H 22 114/65 98 05/20/24 12:44 104/65 05/20/24 12:38 94 H 05/20/24 12:30 102 H 21 97 05/20/24 12:25 92/61 L 05/20/24 12:25 92/61 L 05/20/24 12:24 106 H 21 97 05/20/24 12:13 93/63 L 05/20/24 12:12 108 H 25 H 05/20/24 11:54 102 H 19 96 05/20/24 11:48 92/78 L 05/20/24 11:42 101 H 22 05/20/24 11:36 105 H 19 05/20/24 11:30 95/68 L 05/20/24 11:30 95/68 L 05/20/24 11:16 98/73 L 05/20/24 10:48 36.7 C 109 H 20 99/73 L 94 05/20/24 10:47 95 05/20/24 10:44 108 H 95 O2 Del Method 05/20/24 12:47 Room Air 05/20/24 12:44 05/20/24 12:38 05/20/24 12:30 05/20/24 12:25 05/20/24 12:25 05/20/24 12:24 05/20/24 12:13 05/20/24 12:12 05/20/24 11:54 05/20/24 11:48 05/20/24 11:42 05/20/24 11:36 05/20/24 11:30 05/20/24 11:30 05/20/24 11:16 05/20/24 10:48 Room Air 05/20/24 10:47 Room Air 05/20/24 10:44 Room Air Laboratory Results Abnormal lab results 05/20/24 Range/Units 11:17 RBC 3.77 L (4.20-5.40) M/uL Hct 34.7 L (37.0-47.0) % Neut # (Auto) 7.59 H (1.40-6.50) K/uL Door # (Auto) 1.08 H (0.11-0.59) K/uL PT 13.3 H (9.0-12.0) Seconds INR 1.2 H (0.9-1.1) Sodium 147 H (136-145) mmol/L Chloride 109 H (98-107) mmol/L Anion Gap 12 H (3-11) BUN 40 H (6-23) mg/dl Creatinine 2.41 H (0.6-1.2) mg/dl Glucose 132 H (70-99(Fasting)) mg/dl Alkaline Phosphatase 28 L (34-104) U/L Troponin I High Sens 26.9 H (0-14) pg/ml Diagnostic Findings CT head/brain wo con CLINICAL HISTORY: seizure, hx brain mets Technique: Contiguous axial CT images of the head were acquired from the base of the skull to the vertex without intravenous contrast administration. Images were viewed in brain, subdural and bone windows. Automated dose lowering techniques and/or adjustment according to patient size were utilized for this exam. Comparison: Comparison is made to CT head 09/09/2023 Findings: The ventricles, basal cisterns, and cerebral sulci are normal. There is no acute intracranial hemorrhage or evidence of acute territorial infarction. Neither mass effect, shift of the midline structures, nor abnormal extra-axial fluid collections are shown. Postsurgical changes of left craniotomy are seen Imaged portions of the paranasal sinuses and mastoid air cells are clear. The orbits appear normal. There are no acute fractures of the calvaria or scalp swelling. Impression: No acute intracranial hemorrhage, no evidence of acute territorial infarction or other acute intracranial disease process. XR chest 1V portable CLINICAL HISTORY: Nausea and vomiting. COMPARISON STUDY: Chest CT June 01, 2023. Chest radiograph September 09, 2023. FINDINGS: Lung volumes are normal. Lungs are clear. There is no pneumothorax or pleural effusion. Cardiac size is normal. Mediastinal contours are normal. There is no evidence for pulmonary edema. IMPRESSION: No acute cardiopulmonary findings. CT OF THE ABDOMEN AND PELVIS WITHOUT CONTRAST CLINICAL HISTORY: Nausea and vomiting. COMPARISON STUDY: CT of the abdomen and pelvis June 01, 2023. PET/CT July 11, 2023. TECHNIQUE: Axial images of the abdomen and pelvis were obtained without IV contrast. Images were reviewed in the axial, sagittal, and coronal planes. Automated exposure control was utilized for the study. A dose lowering technique was utilized adhering to the principles of ALARA. FINDINGS: Note is made of moderate circumferential wall thickening of visualized portions of the distal esophagus with adjacent mediastinal fluid. There is no pneumomediastinum within visualized portions of the mediastinum. Prominent paraesophageal lymph nodes measure up to 1.2 x 0.6 cm. There is no consolidation within the lung bases. Evaluation of the abdomen and pelvis is suboptimal on this unenhanced exam. There is no pneumatosis, free air or portal venous gas. Unenhanced images of the liver, spleen, adrenal glands and pancreas are unremarkable. Dilatation of the distal common bile duct remains unchanged. There is no intrahepatic biliary ductal dilatation. Water attenuation bilateral renal lesions favor cysts. There is no hydronephrosis. The stomach is mildly fluid- filled. There are several prominent fluid-filled loops of small bowel without transition point. There is no lymphadenopathy within the abdomen or pelvis. No fluid collections are present. IMPRESSION: 1. Distal esophageal wall thickening with adjacent mediastinal fluid. The findings favor esophagitis. Adjacent prominent paraesophageal lymph nodes which are indeterminate and can be assessed on follow-up exams. 2. Mildly fluid-filled stomach and small bowel. No transition site to suggest a bowel obstruction. The findings may reflect gastroenteritis. 3. No urinary calculi or hydronephrosis. Medications Administered ER medications given: Lactated Ringer's 1 L bolus Ondansetron 4 mg IV Keppra 1000 mg IV ECG Rate (beats per minute): 110 Rhythm: sinus tachycardia Findings: + 1st degree AV block, + nonspecific-ST abn, + ST depression, + T-wave inversion (Anterior) and + prolonged QT Comparison ECG Date: from (May 13, 2024) Code Status & VTE Plan Code Status All treatment outside of cardiac arrest including intubation and artificial ventilation VTE Prophylaxis Plan VTE Prophylaxis will be ordered: Yes PG Care Time/CCT Total # of Minutes Spent Total Time Spent with Patient: Total time spent is greater than 50% in coordination of care (as documented) at patient's floor/unit and/or counseling patient: Coding Level of Care Code 74325 INT INP/OBS CARE 3/75MIN Diagnoses JUAN J (acute kidney injury) N17.9 Prolonged QT interval R94.31 Nausea & vomiting R11.2 Esophagitis K20.90 Skin lesions L98.9 Hypomagnesemia E83.42 Adenocarcinoma of left lung C34.92
[2024-05-20 13:47] LABS: Magnesium 1.4 mg/dl (1.7-2.4); Phosphorus 3.5 mg/dl (2.5-4.9)
[2024-05-20] MEDS ORDERED: PROMETHAZINE HCL SYRUP 6.25 MG/5 ML PO PRN (13:47)
[2024-05-20 13:53] LABS: Troponin I High Sensitivity 29.7 pg/ml (0-14)
[2024-05-20 14:10] LABS: Thyroid Stimulating Hormone 1.788 uIu/ml (0.300-4.500)
[2024-05-20] MEDS: PANTOprazole 40 MG/10 ML SYR IV STA (14:30)
[2024-05-20 15:31] LABS: Adenovirus PCR Not Detected (NotDetected); Bordetella parapertussis PCR Not Detected (NotDetected); Bordetella pertussis PCR Not Detected (NotDetected); Chlamydia pneumoniae PCR Not Detected (NotDetected); Coronavirus 229E PCR Not Detected (NotDetected); Coronavirus CoV-2 (COVID19)PCR Not Detected (NotDetected); Coronavirus HKU1 PCR Not Detected (NotDetected); Coronavirus NL63 PCR Not Detected (NotDetected); Coronavirus OC43PCR Not Detected (NotDetected); Human Metapneumovirus PCR Not Detected (NotDetected); Influenza A PCR Not Detected (NotDetected); Influenza B PCR Not Detected (NotDetected); Mycoplasma pneumoniae PCR Not Detected (NotDetected); Parainfluenza Virus 1 PCR Not Detected (NotDetected); Parainfluenza Virus 2 PCR Not Detected (NotDetected); Parainfluenza Virus 3 PCR Not Detected (NotDetected); Parainfluenza Virus 4 PCR Not Detected (NotDetected); Respiratory Syncytial VirusPCR Not Detected (NotDetected); Rhinovirus/Enterovirus PCR Not Detected (NotDetected)
[2024-05-20] MEDS: MAGNESIUM SULFATE / D5W 1 GM/100 ML BAG IV SCH (15:48)
[2024-05-20] MEDS: D5W AND 1/2NSS + 20MEQ KCL 20 MEQ/1,000 ML BAG IV SCH (16:16)
[2024-05-20] MEDS: POTASSIUM CHLORIDE 10 MEQ TABCR PO SCH (20:20)
[2024-05-20] MEDS: SUCRALFATE 1 GM TAB PO SCH (20:20)
[2024-05-20] MEDS: MAGNESIUM OXIDE 400 MG TAB PO SCH (20:20)
[2024-05-20] MEDS: levETIRAcetam 500 MG TAB PO SCH (20:20)
[2024-05-20] MEDS: SENNA 8.6 MG TAB PO SCH (20:21)
[2024-05-20 20:41] LABS: Appearance Urine Turbid (Clear); Bacteria Urine Automated 2+ (None Seen); Bilirubin Urine Negative (Negative); Blood Urine Trace (Negative); Cast Urine Automated >20 /lpf (0-2); Color Urine Dark Yellow; Glucose Urine UA Negative (Negative); Ketones Urine Trace (Negative); Leukocyte Esterase Urine 3+ (Negative); Nitrite Urine Negative (Negative); Protein Urine 1+ (Negative); RBC Urine Automated 0-2 /hpf (0-2); Specific Gravity Urine 1.024 (1.000-1.030); Urobilinogen Urine Negative (Negative); WBC Urine Automated >50 /hpf (0-5)
--- OUTSIDE RECORDS SUMMARY | 2024-05-20 20:50 | External Medical Summary | Summary of Care ---
Author Name Unknown Organization [facility] Address [address] [place] [address] Phone [phone] Care Team Providers Care Data Sme Name Role Phone [place], Amarilys LUCHO Primary Care Provider [phone] Reason for Visit * Reason Comments eRx-Medication Refill Encounter Details Date Type Department Care Team (Late st Contact Info) Description 05/15/2024 Refill [facility]ology[facility] [address] [facility] [place] [phone] Luis Felipe Amaya MD [address] [facility] [place] [address] Hypokalemia; Malignant neoplasm of left lung, unspecified part of lung (HCC); Need for pneumococcal vaccination; Hypomagnesemia Allergies No known active allergiesdocumented as of this encounter (statuses as of 05/18/2024) Medications Medication Sig Dispensed Refills Start Date End Date Status fenofibrate (LOFIBRA) 160 MG Tablet Take 1 Tablet by mouth in the morning. 1 10/29/2016 Active omeprazole (PRILOSEC) 40 MG CPDR Take 1 Capsule by mouth in the morning. 12/03/2016 Active albuterol (PROAIR HFA) 108 (90 BASE) MCG/ACT inhaler Inhale 2 Puffs by mouth every 6 hours as needed. Active albuterol sulfate (PROVENTIL) (2.5 MG/3ML) 0.083% nebulizer solution Inhale 1 Vial via nebulizer every 6 hours as needed for Wheezing. Active Atorvastatin Calcium 80 MG Oral Tablet (Lipitor) Take 1 Tablet by mouth at bedtime. 05/22/2023 Active Cholecalciferol 50 MCG (2000 UT) Oral Tablet Take 50 mcg by mouth in the morning. 06/02/2023 Active Cyanocobalamin 500 MCG Oral Tablet Take 2 Tablets by mouth in the morning. 06/03/2023 Active hydrOXYzine HCl 25 MG Oral Tablet Take 1 Tablet by mouth in the morning and 1 Tablet at noon and 1 Tablet in the evening. 06/02/2023 Active Loratadine 10 MG Oral Tablet (Claritin) Take 1 Tablet by mouth in the morning. 06/02/2023 Active Metoprolol Succinate ER 25 MG Oral Tablet Extended Release 24 Hour (toPROL XL) Take 0.5 Tablets by mouth in the morning. 06/02/2023 Active Mirtazapine 30 MG Oral Tablet (Remeron) Take 1 Tablet by mouth at bedtime. 01/15/2023 Active Tiotropium [place] Monohydrate 2.5 MCG/ACT Inhalation Aerosol Solution (Spiriva Respimat) Inhale 2 Puffs by mouth every morning. 05/14/2023 Active levETIRAcetam 250 MG Oral Tablet (Keppra) Take 2 Tablets by mouth in the morning and 2 Tablets before bedtime. 120 Tablet 06/10/2023 Active Prochlorperazine Maleate 10 MG Oral Tablet (Compazine)Indicati ons:Malignant neoplasm of left lung, unspecified part of lung (HCC),Metastasis to mediastinal lymph node (HCC),Metastasis to brain (HCC) Take 1 Tablet by mouth every 6 hours as needed for Nausea. 60 Tablet 2 07/18/2023 Active LORazepam 0.5 MG Oral Tablet (Ativan)Indications :Malignant neoplasm of left lung (HCC),Metastasis to mediastinal lymph node (HCC),Metastasis to brain (HCC) Take 1 Tablet by mouth 2 times a day as needed for Anxiety or Sleep. 30 Tablet 07/19/2023 Active Magic Swizzle (Lidocaine-Benadryl -Maalox) oral solutionIndications :Mucositis due to chemotherapy Swish and spit 15 mL in the morning and 15 mL at noon and 15 mL in the evening and 15 mL before bedtime. 500 mL 2 09/05/2023 Active Ondansetron HCl 8 MG Oral Tablet (Zofran)Indications :Malignant neoplasm of left lung, unspecified part of lung (HCC),Metastasis to mediastinal lymph node (HCC),Metastasis to brain (HCC) TAKE ONE TABLET BY MOUTH EVERY 8 HOURS NEEDED FOR NAUSEA 30 Tablet 3 12/09/2023 Active Polyethylene Glycol 3350 17 GM Oral Packet (Miralax)Indication s:Drug-induced constipation Take 1 Packet by mouth in the morning. 14 Each 12/11/2023 Active busPIRone HCl 10 MG Oral Tablet (Buspar)Indications :Anxiety Take 1 Tablet by mouth 3 times a day as needed for Anxiety. 60 Tablet 12/11/2023 Active Additional Information Patient not taking.Reported on 03/18/2024 Potassium Chloride Chelita ER 10 MEQ Oral Tablet Extended ReleaseIndications: Hypokalemia TAKE ONE TABLET TWICE DAILY 60 Tablet 3 2024 Active Mucinex DM 30-600 MG Oral Tablet Extended Release 12 HourIndications:Mal ignant neoplasm of left lung, unspecified part of lung (HCC),Metastasis to mediastinal lymph node (HCC),Metastasis to brain (HCC) Take 1 Tablet by mouth in the morning and 1 Tablet in the evening. 30 Tablet 1 02/26/2024 Active Magnesium Oxide -Mg Supplement 400 (240 Mg) MG Oral Tablet (Mag-Ox)Indications :Malignant neoplasm of left lung, unspecified part of lung (HCC),Need for pneumococcal vaccination,Hypomag nesemia,Hypokalemia TAKE ONE TABLET BY MOUTH TWICE DAILY 60 Tablet 2 02/27/2024 Active oxyCODONE HCl 15 MG Oral Tablet (Roxicodone)Indicat ions:Cancer related pain Take 1 Tablet by mouth 2 times a day as needed for Pain, Severe. 60 Tablet 03/18/2024 Active Sennosides 8.6 MG Oral Tablet (Senokot)Indication s:Drug-induced constipation Take 2 Tablets by mouth at bedtime. 60 Tablet 2 03/24/2024 Active Baclofen 10 MG Oral Tablet (Lioresal) Take 1 Tablet by mouth 2 times a day as needed for Muscle spasms. 30 Tablet 04/13/2024 Active Ondansetron HCl 8 MG Oral TabletIndications:M alignant neoplasm of left lung, unspecified part of lung (HCC),Metastasis to mediastinal lymph node (HCC),Metastasis to brain (HCC) Take 1 Tablet by mouth every 8 hours as needed for Nausea. 30 Tablet 3 05/12/2024 Active documented as of this encounter (statuses as of 05/18/2024) Active Problems Problem Noted Date Diagnosed Date Hypercalcemia 12/26/2023 Other iron deficiency anemias 07/19/2023 Encounter for [...] as of this encounter (statuses as of 05/18/2024) Immunizations Name Administration Dates Next Due Seasonal Influenza, Trivalent, (IIV3), PF, (Fluz one) 04/30/2024 TD - Tetanus/Diptheria (ADULT) 08/05/2000 documented as of this encounter Social History Tobacco Use Types Packs/Day Years Used Date Smoking Tobacco: Every Day Cigarettes 2 34 Smokeless Tobacco: Never Comments:1pkg per day, emperatriz robison on stress started age 14 Alcohol Use Standard Drinks/Week Comments Not Currently 0 (1 standard drink = 0.6 oz pur e alcohol) 12 beers a week Utilities Answer Date Recorded Do you have trouble paying y our heating, water, or electric bill? (Adult - for ages 18 years and over) Not on file 01/21/2024 Is your family able to pay t he heat, water, or electric bill? (Household - for ages 0-17 years) Not on file 01/21/2024 Does your family have access to good internet? (Household - for ages 0-17 years) Not on file 01/21/2024 Social Connections Answer Date Recorded How often do you feel lonely or isolated from those around you? (Adult - for ages 18 years and over) Not on file 01/21/2024 Sex and Gender Information Value Date Recorded [...] encounter Miscellaneous Notes * Telephone Encounter - Lila Ray LPN - 05/18/2024 8:23 AM EDTRefused Prescriptions: Disp Refills Potassium Chloride Chelita ER 10 MEQ Oral Tab*60 Tab*3 Sig: TAKE ONE TABLET TWICE DAILYRefused By: LUIS FELIPE AMAYA for Refusal: Course of treatment complete MAGnesium-Oxide 400 (240 Mg) MG Oral Table*60 Tab*3 Sig: TAKE ONE TABLET TWICE DAILYRefused By: LUIS FELIPE AMAYA for Refusal: Course of treatment complete * Telephone Encounter - Lila Ray LPN - 05/18/2024 8:18 AM EDT Left message for patient to return the phone call, return phone number provided. My G sent. * Telephone Encounter - Luis Felipe Amaya MD - 05/15/2024 11:48 PM EDT Now potassium level has remained normal since February 2024, would like to discontinue oral potassium supplementation. * Telephone Encounter - Lila Ray LPN - 05/15/2024 1:51 PM EDTPending Prescriptions: Disp Refills Potassium Chloride Chelita ER 10 MEQ Oral Tab*60 Tab*3 Sig: TAKE ONE TABLET TWICE DAILY MAGnesium-Oxide 400 (240 Mg) MG Oral Table*60 Tab*3 Sig: TAKE ONE TABLET TWICE DAILY * Telephone Encounter - Lila Ray LPN - 05/15/2024 1:47 PM EDT Refill requests for Potassium Chloride Chelita ER 10 meq tab- last refill 2024 and Magnesium oxide 400 mg tab -Last refilled 02/27/2024 pended below. documented in this encounter Plan of Treatment Upcoming Encounters Date Type Department Care Team (Late st Contact Info) Description 05/20/2024 10:00 AM EDT Laboratory [facility] [address] [place], [place] [address] Jorge Peña [address] [facility] [place], [place] [address] 05/20/2024 10:30 AM EDT Office Visit Hematology/Oncology [facility] [place] [address] [facility] [place], [place] [phone] Tita Coffman CRNP [address] [place] [address] 05/20/2024 11:00 AM EDT Hem/Onc Treatment Hematology/Oncology Treatment, [address], [place] [phone] Mariana, Chair [address] Hem On[address] [place], [place] [address] 06/10/2024 9:30 AM EST Laboratory Laboratory [facility] [address] [place], [place] [phone] Mariana, Lab [facility] [place] [place] [address] [facility] [place], [place] [address] 06/10/2024 10:30 AM EST Hem/Onc Treatment Hematology/Oncology Treatment, [address], [place] [phone] Mariana, Chair 9 Hem Onc [address] [place], [place] [address] 06/10/2024 11:30 AM EST Office Visit Palliative Medicine [address], [place] [phone] Charlotte Price MD [address] [place] [address] Health Maintenance Due Date Last Done Comments DISCUSS TOBACCO CESSATION (REFER TO SMARTSET #3881) 1960 COVID-19 Vaccine (#1) 01/23/1965 Pneumococcal Vaccine: Pediatrics (0 to 5 Years) and At-Risk Patients (6 to 64 Years) (1 of 2 - PCV) 01/23/1966 Depression Monitoring 1972 HIV Screening 01/23/1975 Albumin/Creatinine Ratio 01/23/1978 Alpha-1 Antitrypsin 01/23/1978 Zoster Vaccines (1 of 2) 01/23/1979 DTap/Tdap Vaccines (1 - Tdap) 08/06/2000 08/05/2000 Colonoscopy 01/23/2005 Sigmoidoscopy 01/23/2005 *COPD SEVERITY VERIFIED BY PFT 12/08/2016 Fecal Occult Blood Test 05/12/2019 05/12/2018 Mammogram 03/17/2022 03/17/2021, 05/06, 11/29/2016 O2 ASSESSMENT COMPLETED IN PAST YEAR FOR COPD 06/05/2024 06/05/2023 Cologuard 11/20/2024 11/20/2021, 03/05, 06/24/2020 Colorectal Cancer Screening 11/20/2024 GFR 04/30/2025 04/30/2024, 11/2023, 03/18/2024, Additional history exists Pap Smear Discontinued 11/04/2007 (Done elsewhere) Influenza Vaccine (FLU shot) Completed 04/30/2024, 05/21/2014, 06/12/2013 HPV (Gardasil) Vaccine Aged Out No lo nger eligible based on patient's age to complete this topic Hepatitis B Vaccine Aged Out No longe r eligible based on patient's age to complete this topic MENINGOCOCCAL (MENACTRA/MENVEO) Aged Out No longer eligible based on patient's age to complete this topic documented as of this encounter Medical Devices Implanted Type Area Tmd Teacher Assistant Device Identifier Shelf Expiration Date Model / Serial / Lot Anuradha [place] Neuro Box Plate, 2x2 Hole Implanted:Qty : 2 on 06/05/2023 by Peter Omalley MD at OR [facility] [place] Left: Head [id number] / / [place] [employer] Straight Plate 8-Hole W/O Bar Implanted:Qty : 1 on 06/05/2023 by Peter Omalley MD at OR [facility] [place] Left: Head [id number] / / [employer]ur[place] [place] Neuro Rectangle Plate Implanted:Qty : 1 on 06/05/2023 by Peter Omalley MD at OR [facility] [place] Left: Head [id number] / / [place] [employer] [place] Hole Cover Plate 10 Mm, W/ Tab Implanted:Qty : 1 on 06/05/2023 by Peter Omalley MD at OR [facility] Left: Head [id number] / / Screw 1.5x4mm Sd Un3 - [id number] Implanted:Qty : 20 on 06/05/2023 by Peter Omalley MD at OR [facility] Left: Head ANURADHA : CRANIOMAXILLOFACIAL [id number] / / documented as of this encounter Visit Diagnoses Diagnosis Hypokalemia Hypopotassemia Malignant neoplasm of left lung, unspecified part of lung (HCC) Need for pneumococcal vaccination Need for prophylactic vaccination against streptococcus pneumoniae (pneumococcus) Hypomagnesemia Disorders of magnesium metabolism documented in this encounter Advance Directives Documents on File Type Date Recorded Patient Bull Riveter Daniela ZACARIAS 12/12/2023 signed on 12/10 [place] ORDERS FOR LIFE-SUSTAINING TREATMENT * Full Code (Latest Code Status on File) Date Activated Date Inactivated Comments 06/05/2023 9:49 PM 06/10/2023 7:02 PM This order r eflects the patients wishes and were consensually agreed upon. Question Answer Comments Discussion of Advance Direct ryley occurred with: Not Discussed due to patient's condition * Full Code Date Activated Date Inactivated Comments 06/04/2023 6:30 PM 06/05/2023 9:49 PM This order reflects the patients wishes and were consensually agreed upon. Question Answer Comments Discussion of Advance Direct ryley occurred with: Not Discussed due to patient's condition * Full Code Date Activated Date Inactivated Comments 06/04/2023 5:21 AM 06/04/2023 6:30 PM This order reflects the patients wishes and were consensually agreed upon. Question Answer Comments Discussion of Advance Directives occurred with: Patient Care Teams Data Sme Relationship Specialty Start Date End Date Amarilys Hamilton CR[facility] [address] [facility] [address] PCP - General Nurse Practitioner 12/11/23 documented as of this encounter
--- OUTSIDE RECORDS SUMMARY | 2024-05-20 20:50 | External Medical Summary | Summary of Care ---
Author Name Unknown Organization [facility] Address [address] [place] [address] Phone [phone] Care Team Providers Care Human Services Supervisor Name Role Phone Amarilys Hamilton Primary Care Provider [phone] Reason for Visit * Reason Onset Date Comments Referral Requested by Specialist 02/18/2024 Encounter Details Date Type Department Care Team ([facility] st Contact Info) Description 02/18/2024 Telephone [facility] [address] [place] [address] Amarilys Hamilton CRNP [address] [place] [address] Referral Requested by Specialist Allergies No known active allergiesdocumented as of this encounter (statuses as of 05/19/2024) Medications Medication Sig Dispensed Refills Start Date [...] by mouth at bedtime. 01/15/2023 Active Tiotropium [place] Monohydrate 2.5 MCG/ACT Inhalation Aerosol Solution (Spiriva [...] Additional Information Patient not taking.Reported on 03/18/2024 documented as of this encounter (statuses as of 05/19/2024) Active Problems Problem Noted Date Diagnosed Date [...] as of this encounter (statuses as of 05/19/2024) Immunizations Name Administration Dates Next Due TD [...] encounter Miscellaneous Notes * Telephone Encounter - Mary, Neuro Referral - 02/18/2024 5:06 AM EDT Patient with upcoming Neurology appointment. Referral order request sent to PCP via Communication Management. documented in this encounter Plan of Treatment Upcoming Encounters Date Type Department Care Team (Late st Contact Info) Description 05/20/2024 10:00 AM EDT Laboratory Laboratory [facility] [place] [address] [place] [address] Mariana, Lab [address] [place], [place] [address] 05/20/2024 10:30 AM EDT Office Visit Hematology/Oncology [facility] [address] [place], [place] [phone] Tita Coffman CRNP [address] [facility] [place] [address] 05/20/2024 11:00 AM EDT Hem/Onc Treatment Hematology/Oncology Treatment, [place] 200 [facility], [place] [address] Mariana, Chair 11 Hem Onc [facility] 200 [facility] [place], [place] [address] 06/10/2024 9:30 AM EST Laboratory Laboratory [facility] [address] [place], [place] [phone] Mariana, Lab [facility] [address] [facility] [place] [address] 06/10/2024 10:30 AM EST Hem/Onc Treatment Hematology/Oncology Treatment, [address] [place] [address] Mariana, Chair 9 Hem Onc [facility] [address] [facility] [place], [place] [address] 06/10/2024 11:30 AM EST Office Visit Palliative Medicine [facility] [address] [facility], [place] [phone] Charlotte Price MD [address] [facility] [place] [address] Health Maintenance Due Date Last Done Comments DISCUSS TOBACCO CESSATION (REFER TO SMARTSET #1080) 1960 COVID-19 Vaccine (#1) 01/23/1965 Pneumococcal Vaccine: [...] Colorectal Cancer Screening 11/20/2024 GFR 04/30/2025 04/30/2024, 0911/2023, 03/18/2024, Additional history exists Pap Smear Discontinued [...] this encounter Medical Devices Implanted Type Area Cryptologic Technician Technical Device Identifier Shelf Expiration Date Model / Serial / Lot [place] Neuro Box Plate, 2x2 Hole Implanted:Qty : 2 on 06/05/2023 by Peter Omalley MD [place] [facility] [place] Left: Head [id number] / / [place] Neuro Straight Plate 8-Hole W/O Bar Implanted:Qty : 1 on 06/05/2023 by Peter Omalley MD at [place] [facility] [place] Left: Head [id number] / / [employer] [place] Neuro Rectangle Plate Implanted:Qty : 1 on 06/05/2023 by Peter Omalley MD at [place] [facility] [place] Left: Head [id number] / / [place] [employer] [place] Hole Cover Plate 10 Mm, W/ Tab Implanted:Qty : 1 on 06/05/2023 by Peter Omalley MD at [place] [facility] [place] Left: Head [id number] / / Screw 1.5x4mm Sd Un3 - [id number] Implanted:Qty : 20 on 06/05/2023 by Peter Omalley MD at [place] [facility] [place] Left: Head SHANIQUE : CRANIOMAXILLOFACIAL [id number] / / documented as of this encounter Advance Directives Documents on File Type Date Recorded Patient Guest Service Agent Daniela ZACARIAS 12/12/2023 signed on 12/10 [place] ORDERS FOR LIFE-SUSTAINING TREATMENT * Full Code [...] Advance Directives occurred with: Patient Care Teams Human Services Supervisor Relationship Specialty Start Date End Date Amarilys Hamilton CRNP [address] [place] [address] PCP - General Nurse Practitioner 12/11/23 documented as of this encounter
--- OUTSIDE RECORDS SUMMARY | 2024-05-20 20:50 | External Medical Summary | Summary of Care ---
Author Name Unknown Organization [facility] Address [address] [place] [address] Phone [phone] Care Team Providers Care Cotton Picker Operator Name Role Phone [place], Amarilys LUCHO Primary Care Provider [phone] Reason for Visit * Reason Comments eRx-Medication Refill Encounter Details Date Type Department Care Team (Late st Contact Info) Description 05/15/2024 Refill [facility] [address] [facility] [place] [phone] Luis Felipe Amaya MD 200 [facility] [place] [address] Hypokalemia; Malignant neoplasm of left lung, unspecified [...] by mouth at bedtime. 01/15/2023 Active Tiotropium [place] Monohydrate 2.5 MCG/ACT Inhalation Aerosol Solution (Spiriva Respimat) Inhale 2 Puffs by mouth every morning. 05/14/2023 Active levETIRAcetam 250 MG Oral Tablet (Keppra) Take 2 Tablets by mouth in the morning and 2 Tablets before bedtime. 120 Tablet 06/10/2023 Active Prochlorperazine Maleate 10 MG Oral Tablet (Compazine)Indicat ions:Malignant neoplasm of left lung, unspecified part of lung (HCC),Metastasis to mediastinal lymph node (HCC),Metastasis to brain (HCC) Take 1 Tablet by mouth every 6 hours as needed for Nausea. 60 Tablet 2 07/18/2023 Active LORazepam 0.5 MG Oral Tablet (Ativan)Indication s:Malignant neoplasm of left lung (HCC),Metastasis to mediastinal lymph node (HCC),Metastasis to brain (HCC) Take 1 Tablet by mouth 2 times a day as needed for Anxiety or Sleep. 30 Tablet 07/19/2023 Active Magic Swizzle (Lidocaine-Benadry l-Maalox) oral solutionIndication s:Mucositis due to chemotherapy Swish and spit 15 mL in the morning and 15 mL at noon and 15 mL in the evening and 15 mL before bedtime. 500 mL 2 09/05/2023 Active Ondansetron HCl 8 MG Oral Tablet (Zofran)Indication s:Malignant neoplasm of left lung, unspecified part of lung (HCC),Metastasis to mediastinal lymph node (HCC),Metastasis to brain (HCC) TAKE ONE TABLET BY MOUTH EVERY 8 HOURS NEEDED FOR NAUSEA 30 Tablet 3 12/09/2023 Active Polyethylene Glycol 3350 17 GM Oral Packet (Miralax)Indicatio ns:Drug-induced constipation Take 1 Packet by mouth in the morning. 14 Each 12/11/2023 Active busPIRone HCl 10 MG Oral Tablet (Buspar)Indication s:Anxiety Take 1 Tablet by mouth 3 times a day as needed for Anxiety. 60 Tablet 12/11/2023 Active Additional Information Patient not taking.Reported on 03/18/2024 Mucinex DM 30-600 MG Oral Tablet Extended Release 12 HourIndications:Ma lignant neoplasm of left lung, unspecified part of lung (HCC),Metastasis to mediastinal lymph node (HCC),Metastasis to brain (HCC) Take 1 Tablet by mouth in the morning and 1 Tablet in the evening. 30 Tablet 1 02/26/2024 Active Magnesium Oxide -Mg Supplement 400 (240 Mg) MG Oral Tablet (Mag-Ox)Indication s:Malignant neoplasm of left lung, unspecified part of lung (HCC),Need for pneumococcal vaccination,Hypoma gnesemia,Hypokalem ia TAKE ONE TABLET BY MOUTH TWICE DAILY 60 Tablet 2 02/27/2024 Active oxyCODONE HCl 15 MG Oral Tablet (Roxicodone)Indica tions:Cancer related pain Take 1 Tablet by mouth 2 times a day as needed for Pain, Severe. 60 Tablet 03/18/2024 Active Sennosides 8.6 MG Oral Tablet (Senokot)Indicatio ns:Drug-induced constipation Take 2 Tablets by mouth at bedtime. 60 Tablet 2 03/24/2024 Active Baclofen 10 MG Oral Tablet (Lioresal) Take 1 Tablet by mouth 2 times a day as needed for Muscle spasms. 30 Tablet 04/13/2024 Active Ondansetron HCl 8 MG Oral TabletIndications: Malignant neoplasm of left lung, unspecified part of lung (HCC),Metastasis to mediastinal lymph node (HCC),Metastasis to brain (HCC) Take 1 Tablet by mouth every 8 hours as needed for Nausea. 30 Tablet 3 05/12/2024 Active Potassium Chloride Chelita ER 10 MEQ Oral Tablet Extended ReleaseIndications :Hypokalemia TAKE ONE TABLET TWICE DAILY 60 Tablet 3 2024 Discontinue d(Medicatio n/Dose Changed) documented as of this encounter (statuses as [...] as of this encounter Miscellaneous Notes * Addendum Note - Jamal Ray LPN - 05/18/2024 3:35 PM EDTAddended by: JAMAL RAY on: 05/18/2024 03:35 PM Modules accepted: Orders * Telephone Encounter - Jamal Ray LPN - 05/18/2024 3:33 PM EDT Refill request from [facility] for Magnesium Oxide 400 mg Last Refill: 02/27/2024 Mg level 04/30/2024 1.8 Last seen: 04/30/2024 Next Appt.: 05/20/2024 * Telephone Encounter - Jamal Ray LPN - 05/18/2024 8:23 AM EDTRefused Prescriptions: Disp Refills Potassium Chloride Chelita ER 10 MEQ Oral Tab*60 Tab*3 Sig: TAKE ONE TABLET TWICE DAILYRefused By: LUIS FELIPE AMAYA for Refusal: Course of treatment complete MAGnesium-Oxide 400 (240 Mg) MG Oral Table*60 Tab*3 Sig: TAKE ONE TABLET TWICE DAILYRefused By: LUIS FELIPE AMAYA for Refusal: Course of treatment complete * Telephone Encounter - Jamal Ray LPN - 05/18/2024 8:18 AM EDT Left message for patient to return the phone call, return phone number provided. My G sent. * Telephone Encounter - Luis Felipe Amaya MD - 05/15/2024 11:48 PM EDT Now potassium level has remained normal since February 2024, would like to discontinue oral potassium supplementation. * Telephone Encounter - Jamal Ray LPN - 05/15/2024 1:51 PM EDTPending Prescriptions: Disp Refills Potassium Chloride Chelita ER 10 MEQ Oral Tab*60 Tab*3 Sig: TAKE ONE TABLET TWICE DAILY MAGnesium-Oxide 400 (240 Mg) MG Oral Table*60 Tab*3 Sig: TAKE ONE TABLET TWICE DAILY * Telephone Encounter - Jamal Ray LPN - 05/15/2024 1:47 PM EDT Refill requests for Potassium Chloride Chelita ER 10 meq tab- last refill 2024 and Magnesium oxide 400 mg tab -Last refilled 02/27/2024 pended below. documented in this encounter Plan of Treatment Upcoming Encounters Date Type Department Care Team (Late st Contact Info) Description 05/20/2024 10:00 AM EDT Laboratory Laboratory [facility] [place] [address] [place] [phone] [address] [place] [address] 05/20/2024 10:30 AM EDT Office Visit Hematology/Oncology [facility] [place] [address] [place] [phone] Tita Coffman, LUCHO 400 [place] [address] 05/20/2024 11:00 AM EDT Hem/Onc Treatment Hematology/Oncology Treatment, [place] [address] [place], [place] [phone] [place], Chair 11 Hem Onc [facility] [address] [place], [place] [address] 06/10/2024 9:30 AM EST Laboratory Laboratory [address] [facility] [place] [address] [place] [phone] Jorge Pe[address] [place] [address] 06/10/2024 10:30 AM EST Hem/Onc Treatment Hematology/Oncology Treatment, [place] 200 [facility], [place] [phone] [place], Chair 9 Hem Onc [address] [address] 06/10/2024 11:30 AM EST Office Visit Palliative Medicine [facility] [address] [place] [phone] Charlotte Price MD [address] [place] [address] [place] [address] Health Maintenance Due Date Last Done Comments DISCUSS TOBACCO CESSATION (REFER TO SMARTSET #7993) 1960 COVID-19 Vaccine (#1) 01/23/1965 Pneumococcal Vaccine: [...] this encounter Medical Devices Implanted Type Area Feather Trimmer Device Identifier Shelf Expiration Date Model / Serial / Lot Anuradha [place] Neuro Box Plate, 2x2 Hole Implanted:Qty : 2 on 06/05/2023 by Peter Omalley MD at OR [facility] Left: Head [id number] / / [place] Cumming Neuro Straight Plate 8-Hole W/O Bar Implanted:Qty : 1 on 06/05/2023 by Peter Omalley MD at OR [facility] Left: Head [id number] / / Anuradha Cumming Neuro Rectangle Plate Implanted:Qty : 1 on 06/05/2023 by Peter Omalley MD at OR [facility] Left: Head [id number] / / [place] Cumming Neuro Geo Hole Cover Plate 10 Mm, W/ Tab Implanted:Qty : 1 on 06/05/2023 by Peter Omalley MD at OR [facility] Left: Head [id number] / / Screw 1.5x4mm Sd Un3 - [id number] Implanted:Qty : 20 on 06/05/2023 by Peter Omalley MD at OR [facility] Left: Head ANURADHA : CRANIOMAXILLOFACIAL [id number] / / documented as of this encounter Visit Diagnoses Diagnosis Hypokalemia Hypopotassemia Malignant neoplasm of left lung, unspecified part of lung (HCC) Need for pneumococcal vaccination Need for prophylactic vaccination against streptococcus pneumoniae (pneumococcus) Hypomagnesemia Disorders of magnesium metabolism documented in this encounter Advance Directives Documents on File Type Date Recorded Patient Senior Qualitative Researcher Expl linden ZACARIAS 12/12/2023 signed on 12/10 [place] ORDERS FOR LIFE-SUSTAINING TREATMENT * Full Code [...] Advance Directives occurred with: Patient Care Teams Cotton Picker Operator Relationship Specialty Start Date End Date Amarilys Hamilton CRNP [address] [place] [address] PCP - General Nurse Practitioner 12/11/23 documented as of this encounter
--- OUTSIDE RECORDS SUMMARY | 2024-05-20 20:50 | External Medical Summary | Summary of Care ---
Author Name Unknown Organization [facility] Address [address] [place] [address] Phone [phone] Care Team Providers Care Mechanical Maintenance Name Role Phone [place], Amarilys LUCHO Primary Care Provider [phone] Reason for Visit * Reason Onset Date Comments Medication Administration 04/30/2024 Flu an d/or Pneumo Inj Chemotherapy Keytruda IV Therapy Zometa and Hydra tion * Episode Based Medications (Routine) - Authorized Specialty Diagnoses / Procedures Referred By Araseli whalen Referred To Contact Diagnoses 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) Malignant neoplasm of left lung, unspecified part of lung (HCC) Encounter for antineoplastic chemotherapy Procedures PA INJ. PEMETREXED NOS 10MG PA CARBOPLATIN INJECTION PA FOSAPREPITANT INJECTION PA INJ PEMBROLIZUMAB Bradley Amaya MD 200 [place] [address] Anc Hem/Onc [address] [phone] Referral ID Status Reason Start Date Expiration Date V isits Requested Visits Authorized [id number] Authorized 07/23/2023 07/23/2024 [id number] Encounter Details Date Type Department Care Team (Latest Contact Info) Description 04/30/2024 9:15 AM EDT Hem/Onc Treatment Hematology/Oncolog y Treatment, [address] [phone] [place] Chair 10 Hem Onc [address] [place] [address] Metastasis to brain (HCC)*; Metastasis to mediastinal lymph node (HCC); Malignant neoplasm of left lung, unspecified part of lung (HCC); Encounter for antineoplastic chemotherapy; Hypercalcemia; Need for prophylactic vaccination and inoculation against influenza Allergies No known active allergiesdocumented as of this encounter (statuses as of 05/17/2024) Medications Medication Sig Dispensed Refills Start Date [...] by mouth at bedtime. 01/15/2023 Active Tiotropium [place] Monohydrate 2.5 MCG/ACT Inhalation Aerosol Solution (Spiriva [...] for Muscle spasms. 30 Tablet 04/13/2024 Active documented as of this encounter (statuses as of 05/17/2024) Active Problems Problem Noted Date Diagnosed Date [...] as of this encounter (statuses as of 05/17/2024) Immunizations Name Administration Dates Next Due Seasonal [...] this encounter Patient Instructions * Patient Instructions* Lizzy Roque LPN - 04/30/2024 9:01 AM EDT ~~PATIENT INSTRUCTIONS FOR FLU SHOT~~ Possible side effects of influenza vaccine, (flu shot), are usually mild and include: 1. Soreness or redness at injection site 2. Low grade fever 3. Body aches You may use Tylenol/Acetaminophen as needed for these symptoms. LET YOUR DOCTOR KNOW IMMEDIATELY IF YOU HAVE DIFFICULTY BREATHING OR SWALLOWING, EXPERIENCE ITCHINGOF FEET OR HANDS, HAVE SWELLING OF EYES, FACE OR INSIDE OF NOSE. documented in this encounter Progress Notes * Lizzy Roque LPN - 04/30/2024 9:01 AM EDT PRE - ADMINISTRATION DOCUMENTATION Are you experiencing any cold symptoms or fever? No Have you had Guillain-Wapella Syndrome (an illness that causes paralysis) within the last 6 weeks? No Have you had the flu shot in the past? YES Have you ever had a reaction to the flu shot? No Lizzy Roque LPN, 04/30/2024 9:01 AM Immunization Administration Documentation Time Out Procedure Performed: Yes Patient Identified (Ask Name/Date of ): Yes Does the patient have a fever greater than 101 degrees today? No Patient allergic to latex? No [facility] Stock: Yes, Does this patient qualify for immunization through the [facility] program because he/she (check only one): Yes-is enrolled in Medicaid Immunization(s) verified: Yes, Immunization Name: Flu, VIS Sheet(s) given: Yes Verified Side and Site: Yes Verified Shot(s) with Parent(s)/Patient: Yes documented in this encounter Nursing Notes * Ashley De La Torre, ALBERTO - 04/30/2024 11:17 AM EDT Patient tolerated treatment without difficulty. PIV removed intact. Goals: Patient will remain free from injury. Possible barriers to meeting goals: Ambulating with IV pole Stability of the patient: Moderately stable - low risk of patient condition declining or worsening Summary regarding today's goals: Met: Patient remained free from harm. Pt discharged in stable condition. * Ashley De La Torre RN - 04/30/2024 10:10 AM EDT Chair 6 Patient here for treatment after appointment with Dr. Amaya. Per Dr. Amaya new orders for extra hydration and Zometa, see Treatment plan. PIV started. Chemotherapy/Immunotherapy agents: KEYTRUDA Consent for chemotherapy drug treatment complete, dated, and signed? yes, date - 09/18/23 Treatment lab parameters met? Yes Has treatment weight changed > than 10%? No Treatment preauthorized? Yes VITALS Filed Vitals: Urine protein: N/A Patient education completed for treatment? Yes Blood transfusion consent signed and complete? NA Return appointment scheduled? Yes Patient had provider visit today? Yes - Ok to release order and treat per provider Functional Status: Functional status at today's visit: Fully active, able to carry on all pre-disease performance without restriction The drug name, dose, infusion volume, rate and route of administration, expiration date and time, appearance and physical integrity of the drug and rate set on the pump and sequencing of drug administration (as applicable) were verified by me and second sign-in RN. Patient was assessed for symptoms or adverse side effects during treatment. Patient Education: Patient instructed on use of heat and massage functions where applicable. Patient shown how to operate the heat function of the chair and to alert nursing staff if the chair feels too warm. Patient instructed on the risk of potential martino while using the heat function. Safety and Risk for Injury Patient will remain free from injury. Ensure appropriate safety devices are available. Provide and maintain safe environment. documented in this encounter Plan of Treatment Upcoming Encounters Date Type Department Care Team (Late st Contact Info) Description 05/20/2024 10:00 AM EDT Laboratory Laboratory [facility] [place] [address] [place] [phone] Jorge [address] [place] [address] 05/20/2024 10:30 AM EDT Office Visit Hematology/Oncology [facility] 200 [facility] [place], [place] [phone] Tita Coffman CRNP [address] [facility] [place] [address] 05/20/2024 11:00 AM EDT Hem/Onc Treatment Hematology/Oncology [address], [place] [phone] [place], Chair 11 Hem Onc [facility] 200 [facility] [place], [place] [address] 06/10/2024 9:30 AM EST Laboratory Laboratory [address] [place], [place] [phone] [place], Lab [address] [place], [place] [address] 06/10/2024 10:30 AM EST Hem/Onc Treatment Hematology/Oncology [address], [place] [phone] [place], Chair 9 Hem Onc [address] [place], [place] [address] 06/10/2024 11:30 AM EST Office Visit Palliative Medicine [address], [place] [phone] Charlotte Price MD [address] [facility] [place] [phone] Health Maintenance Due Date Last Done Comments DISCUSS TOBACCO CESSATION (REFER TO SMARTSET #1058) 1960 COVID-19 Vaccine (#1) 01/23/1965 Pneumococcal Vaccine: [...] this encounter Medical Devices Implanted Type Area Lot Associate Device Identifier Shelf Expiration Date Model / Serial / Lot Anuradha [place] Neuro Box Plate, 2x2 Hole Implanted:Qty : 2 on 06/05/2023 by Peter Omalley MD at [place] [facility] Left: Head [id number] / / [place] Desmet Neuro Straight Plate 8-Hole W/O Bar Implanted:Qty : 1 on 06/05/2023 by Peter Omalley MD at OR [facility] Left: Head [id number] / / Anuradha Desmet Neuro Rectangle Plate Implanted:Qty : 1 on 06/05/2023 by Peter Omalley MD at [place] [facility] Left: Head [id number] / / [place] Desmet Neuro [place] Hole Cover Plate 10 Mm, W/ Tab Implanted:Qty : 1 on 06/05/2023 by Peter Omalley MD at OR [facility] Left: Head [id number] / / Screw 1.5x4mm Sd Un3 - [id number] Implanted:Qty : 20 on 06/05/2023 by Peter Omalley MD at OR [facility] Left: Head ANURADHA : CRANIOMAXILLOFACIAL [id number] / / documented as of this encounter Visit Diagnoses Diagnosis 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 Malignant neoplasm of left lung, unspecified part of lung (HCC) Encounter for antineoplastic chemotherapy Hypercalcemia Need for prophylactic vaccination and inoculation against influenza documented in this encounter Administered Medications Inactive Administered Medications - up to 3 most recent administrations Medication Order MAR Action Action Date Dose Rate Site NSS infusion FOR HYDRATION Intravenous, at 500 mL/hr Administer over 2 Hours, ONCE, 1 dose, On [place] 04/30/24 at 0930 Start Infusion 04/30/2024 8:55 AM EDT 1,000 mL 500 mL/hr NSS infusion Intravenous, at 50 mL/hr, PRN, Starting on Gege 04/30/24 at 0930, Until [place]ge 04/30/24 at 1522, Maintenance line Start Infusion 04/30/2024 8:53 AM EDT 50 mL/hr Start Infusion 04/30/2024 8:53 AM EDT 50 mL/hr Pembrolizumab (Keytruda) 200 mg in NSS 100 mL infusion 200 mg, IV Piggyback, ONCE, 1 dose, On [place] 04/30/24 at 0930, Administer over 30 Minutes, Infuse through 0.2 micron filter. Start Infusion 04/30/2024 9:19 AM EDT 200 mg 226 mL/hr Zoledronic Acid (Zometa) 3 mg in NSS 100 mL ivpb 3 mg, IV Piggyback, ONCE, 1 dose, On [place]ge 04/30/24 at 1000 Start Infusion 04/30/2024 10:00 AM EDT 3 mg 435 mL/hr documented in this encounter Advance Directives Documents on File Type Date Recorded Patient Veterans Adviser Expl anation POL 12/12/2023 signed on 12/10 [place] ORDERS FOR LIFE-SUSTAINING TREATMENT * Full Code [...] Advance Directives occurred with: Patient Care Teams Mechanical Maintenance Relationship Specialty Start Date End Date Amarilys Hamilton CRNP [address] [place] [address] PCP - General Nurse Practitioner 12/11/23 documented as of this encounter
--- OUTSIDE RECORDS SUMMARY | 2024-05-20 20:50 | External Medical Summary | Summary of Care ---
Author Name Unknown Organization [facility] Address [address] [place] [address] Phone [phone] Care Team Providers Care Life Tester Outboard Motors Name Role Phone [place], Amarilys LUCHO Primary Care Provider [phone] Reason for Visit * Reason Comments eRx-Medication Refill Encounter Details Date Type Department Care Team (Late st Contact Info) Description 05/15/2024 [facility]ill [facility] [place] [phone] Luis Felipe Amaya MD 200 [facility] [place] [address] Hypokalemia; Malignant neoplasm of left lung, unspecified [...] by mouth at bedtime. 01/15/2023 Active Tiotropium [place] Monohydrate 2.5 MCG/ACT Inhalation Aerosol Solution (Spiriva [...] 05/19/2024) Immunizations Name Administration Dates Next Due Seasonal [...] encounter Miscellaneous Notes * Telephone Encounter - Jamal Ray LPN - 05/19/2024 8:17 AM EDTRefused Prescriptions: Disp Refills Potassium Chloride [facility] 10 MEQ Oral Tab*60 Tab*3 Sig: TAKE ONE TABLET TWICE DAILYRefused By: LUIS FELIPE AMAYA for Refusal: Course of treatment complete MAGnesium-Oxide 400 (240 Mg) MG Oral Table*60 Tab*3 Sig: TAKE ONE TABLET TWICE DAILYRefused By: LUIS FELIPE AMAYA for Refusal: Course of treatment complete Magnesium Oxide -Mg Supplement 400 (240 Mg*60 Tab*2 Sig: Take 1 Tablet by mouth in the morning and 1 Tablet before bedtime.Refused By: LUIS FELIPE AMAYA for Refusal: Course of treatment complete * Telephone Encounter - Jamal Ray LPN - 05/19/2024 8:15 AM EDT Called and spoke with patient, informed her per Dr. Amaya to stop taking her Magnesium and Potassium oral supplements due to her lab results being normal. Patient verbalized understanding and denies any questions at this time. * Telephone Encounter - Luis Felipe Amaya MD - 05/18/2024 10:14 PM EDT Magnesium level is normal, would like to discontinue oral magnesium level mentation at this time. * Addendum Note - Jamal Ray LPN - 05/18/2024 3:35 PM EDTAddended by: JAMAL RAY on: 05/18/2024 03:35 PM Modules accepted: Orders * Telephone Encounter - Jamal Ray LPN - 05/18/2024 3:33 PM EDT Refill request from [facility] for Magnesium Oxide 400 mg Last [...] Description 05/20/2024 10:00 AM EDT Laboratory Laboratory [facility] [place] [address] [place] [phone] Jorge Peña [address] [facility] [place] [address] 05/20/2024 10:30 AM EDT Office Visit Hematology/Oncology [facility] [place] [address] [place] [phone] Tita Coffman, LUCHO [address] [place] [address] 05/20/2024 11:00 AM EDT Hem/Onc Treatment Hematology/Oncology Treatment, [place] [facility] [address] [place], Chair 11 Hem Onc [facility] [address] [place] [address] 06/10/2024 9:30 AM EST Laboratory Laboratory [facility] [place] [address] [place] [address] Mariana Lab Scenery [address] [place] [address] 06/10/2024 10:30 AM EST Hem/Onc Treatment Hematology/Oncology Treatment, [place] [facility] [address] [place], Chair 9 Hem Onc [address] [place] [address] 06/10/2024 11:30 AM EST Office Visit Palliative Medicine [facility] [address] [facility] [place] [address] Charlotte Price MD [address] [place] [address] [place] [address] Health Maintenance Due Date Last Done Comments DISCUSS TOBACCO CESSATION (REFER TO SMARTSET #9639) 1960 COVID-19 Vaccine (#1) 01/23/1965 Pneumococcal Vaccine: [...] this encounter Medical Devices Implanted Type Area Renal Technician Device Identifier Shelf Expiration Date Model / Serial / Lot Anuradha [place] Neuro Box Plate, 2x2 Hole Implanted:Qty : 2 on 06/05/2023 by Peter Omalley MD at OR [facility] Left: Head [id number] / / [place] Neuro Straight Plate 8-Hole W/O Bar Implanted:Qty : 1 on 06/05/2023 by Peter Omalley MD at OR [facility] Left: Head [id number] / / Anuradha [place] Neuro Rectangle Plate Implanted:Qty : 1 on 06/05/2023 by Peter Omalley MD at OR [facility] Left: Head [id number] / / Anuradha [place] Neuro [place] Hole Cover Plate 10 Mm, W/ Tab Implanted:Qty : 1 on 06/05/2023 by Peter Omalley MD at OR [facility] Left: Head [id number] / / Screw 1.5x4mm Sd Un3 - [id number] Implanted:Qty : 20 on 06/05/2023 by Peter Omalley MD at OR [facility] Left: Head ANURADHA : CRANIOMAXILLOFACIAL [id number] / / documented as of this encounter Visit Diagnoses Diagnosis Hypokalemia Hypopotassemia Malignant neoplasm of left lung, unspecified part of lung (HCC) Need for pneumococcal vaccination Need for prophylactic vaccination against streptococcus pneumoniae (pneumococcus) Hypomagnesemia Disorders of magnesium metabolism documented in this encounter Advance Directives Documents on File Type Date Recorded Patient Warp Picker Daniela ZACARIAS 12/12/2023 signed on 12/10 [place] ORDERS FOR LIFE-SUSTAINING TREATMENT * Full Code [...] Advance Directives occurred with: Patient Care Teams Life Tester Outboard Motors Relationship Specialty Start Date End Date Amarilys Hamilton CRNP [address] [place] [address] PCP - General Nurse Practitioner 12/11/23 documented as of this encounter
--- OUTSIDE RECORDS SUMMARY | 2024-05-20 20:51 | External Medical Summary | Summary of Care ---
Author Name Unknown Organization [facility] Address [address] [place] [address] Phone [phone] Care Team Providers Care Police Manager Name Role Phone [place], Amarilys LUCHO Primary Care Provider Reason for Visit * [...] lung (HCC) Encounter for antineoplastic chemotherapy Procedures [place] INJ. 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 01/15/2023 Active Tiotropium [place] Monohydrate 2.5 MCG/ACT Inhalation Aerosol Solution (Spiriva [...] symptoms or fever? No Have you had Guillain-[place] Syndrome (an illness that causes paralysis) within [...] today? No Patient allergic to latex? No [facility] Stock: Yes, Does this patient qualify for immunization through the [facility] program because he/she (check only one): Yes-is [...] State Bre Lara [address] [place] [phone] Jorge Peña [address] [place] [address] 05/20/2024 10:30 AM EDT Office Visit Hematology/Oncology [facility] 200 [facility] [place], [place] [phone] Tita Coffman CRNP 400 [facility] [place] [address] 05/20/2024 11:00 AM EDT Hem/Onc Treatment Hematology/Oncology [address], [place] [phone] [place], Chair 11 Hem Onc [facility] 200 [facility] [place], [place] [address] 06/10/2024 9:30 AM EST Laboratory Laboratory [address] [place], [place] [phone] Mar[place], Lab [address] [place], [place] [address] 06/10/2024 10:30 AM EST Hem/Onc Treatment Hematology/Oncology [address], [place] [address] [place], Chair 9 Hem Onc [address] [place], [place] [address] 06/10/2024 11:30 AM EST Office Visit Palliative Medicine [address], [place] [phone] Charlotte Price MD 400 [facility] [place] [phone] Health Maintenance Due Date Last Done Comments DISCUSS TOBACCO CESSATION (REFER TO SMARTSET #1932) 1960 COVID-19 Vaccine (#1) 01/23/1965 Pneumococcal Vaccine: [...] this encounter Medical Devices Implanted Type Area Distresser Device Identifier Shelf Expiration Date Model / Serial / Lot Anuradha [place] Neuro Box Plate, 2x2 Hole Implanted:Qty : 2 on 06/05/2023 by Peter Omalley MD at OR [facility] Left: Head [id number] / / [place] Neuro Straight Plate 8-Hole W/O Bar Implanted:Qty : 1 on 06/05/2023 by Peter Omalley MD at OR [facility] Left: Head [id number] / / Anuradha [place] Neuro Rectangle Plate Implanted:Qty : 1 on 06/05/2023 by Peter Omalley MD at OR [facility] Left: Head [id number] / / [place] Neuro [place] Hole Cover Plate 10 Mm, W/ Tab Implanted:Qty : 1 on 06/05/2023 by Peter Omalley MD at OR [facility] Left: Head [id number] / / Screw 1.5x4mm Sd Un3 - [id number] Implanted:Qty : 20 on 06/05/2023 by Peter Omalley MD at OR [facility] Left: Head ANURADHA : CRANIOMAXILLOFACIAL [id number] / / documented as of this encounter [...] Documents on File Type Date Recorded Patient Application Support Manager Expl anation POL 12/12/2023 signed on 12/10 [place] ORDERS FOR LIFE-SUSTAINING TREATMENT * Full Code [...] Advance Directives occurred with: Patient Care Teams Police Manager Relationship Specialty Start Date End Date Amarilys Hamilton CRNP [address] [place] [address] PCP - General Nurse Practitioner 12/11/23 documented as of this encounter
--- OUTSIDE RECORDS SUMMARY | 2024-05-20 20:51 | External Medical Summary | Summary of Care ---
Author Name Unknown Organization [facility] Address [address] [place] [address] Phone [phone] Care Team Providers Care Bung Dropper Name Role Phone [place], Amarilys LUCHO Primary Care Provider [phone] Reason for Visit * Reason Onset Date [...] lung (HCC) Encounter for antineoplastic chemotherapy Procedures [place] INJ. PEMETREXED NOS 10MG [place] CARBOPLATIN INJECTION [place] FOSAPREPITANT INJECTION [place] INJ PEMBROLIZUMAB Bradley Aamya MD 200 [facility] [place] [address] Anc Hem/Onc [address] [address] Referral ID Status Reason Start Date Expiration Date V isits Requested Visits Authorized [id number] Authorized 07/23/2023 07/23/2024 999 99 Encounter Details Date Type Department Care Team (Latest Contact Info) Description 04/30/2024 9:15 AM EDT Hem/Onc Treatment Hematology/Oncolog y Treatment, [address] [address] [place] Chair 10 Hem Onc [address] [place] [address] Metastasis to brain (HCC)*; 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 01/15/2023 Active Tiotropium [place] Monohydrate 2.5 MCG/ACT Inhalation Aerosol Solution (Spiriva [...] symptoms or fever? No Have you had Guillain-[place] Syndrome (an illness that causes paralysis) within [...] today? No Patient allergic to latex? No [facility] Stock: Yes, Does this patient qualify for immunization through the [facility] program because he/she (check only one): [...] State Bre Lara [address] [place] [phone] Jorge Peña Sc[address] [place] [address] 05/20/2024 10:30 AM EDT Office Visit Hematology/Oncology [facility] 200 [facility] [place], [place] [phone] Tita Coffman CRNP [address] [facility] [address] 05/20/2024 11:00 AM EDT Hem/Onc Treatment Hematology/Oncology [address], [place] [phone] [place], Chair 11 Hem Onc [facility] 200 [facility] [place], [place] [address] 06/10/2024 9:30 AM EST Laboratory Laboratory [address] [place], [place] [address] Mar[place], Lab [address] [place], [place] [address] 06/10/2024 10:30 AM EST Hem/Onc Treatment Hematology/Oncology [address], [place] [address] [place], Chair 9 Hem Onc [address] [place], [place] [address] 06/10/2024 11:30 AM EST Office Visit Palliative Medicine [address], [place] [phone] Charlotte Price MD [address] [facility] [place] [phone] Health Maintenance Due Date Last Done Comments DISCUSS TOBACCO CESSATION (REFER TO SMARTSET #8160) 1960 COVID-19 Vaccine (#1) 01/23/1965 Pneumococcal Vaccine: [...] this encounter Medical Devices Implanted Type Area Pigment Mixer Device Identifier Shelf Expiration Date Model / Serial / Lot Anuradha [place] Neuro Box Plate, 2x2 Hole Implanted:Qty : 2 on 06/05/2023 by Peter Omalley MD at OR [facility] Left: Head [id number] / / [place] Neuro Straight Plate 8-Hole W/O Bar Implanted:Qty : 1 on 06/05/2023 by Peter Omalley MD at OR [facility] Left: Head [id number] / / Anuradha [place] Neuro Rectangle Plate Implanted:Qty : 1 on 06/05/2023 by Peter Omalley MD at OR [facility] Left: Head [id number] / / [place] Neuro [place] Hole Cover Plate 10 Mm, W/ Tab Implanted:Qty : 1 on 06/05/2023 by Peter Omalley MD at OR [facility] Left: Head [id number] / / Screw 1.5x4mm Sd Un3 - [id number] Implanted:Qty : 20 on 06/05/2023 by Peter Omalley MD at OR [facility] Left: Head ANURADHA : CRANIOMAXILLOFACIAL [id number] / / documented as of this encounter [...] Documents on File Type Date Recorded Patient Chemical Processing Technician Expl anation POL 12/12/2023 signed on 12/10 [place] ORDERS FOR LIFE-SUSTAINING TREATMENT * Full Code [...] Advance Directives occurred with: Patient Care Teams Bung Dropper Relationship Specialty Start Date End Date Amarilys Hamilton CRNP [address] [place] [address] PCP - General Nurse Practitioner 12/11/23 documented as of this encounter
--- OUTSIDE RECORDS SUMMARY | 2024-05-20 20:51 | External Medical Summary | Summary of Care ---
Author Name Unknown Organization [facility] Address [address] [place] [address] Phone [phone] Care Team Providers Care Plant Ecologist Name Role Phone [place], Amarilys LUCHO Primary Care Provider [phone] Reason for Visit * Reason Onset Date [...] lung (HCC) Encounter for antineoplastic chemotherapy Procedures [place] INJ. 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 01/15/2023 Active Tiotropium [place] Monohydrate 2.5 MCG/ACT Inhalation Aerosol Solution (Spiriva [...] symptoms or fever? No Have you had Guillain-[place] Syndrome (an illness that causes paralysis) within [...] today? No Patient allergic to latex? No [facility] Stock: Yes, Does this patient qualify for immunization through the [facility] program because he/she (check only [...] State Bre Lara [address] [place] [phone] Jorge Peña Sc[address] [place] [address] 05/20/2024 10:30 AM EDT Office Visit Hematology/Oncology [facility] 200 [facility] [place], [place] [address] Tita Coffman CRNP 400 [facility] [place] [address] 05/20/2024 11:00 AM EDT Hem/Onc Treatment Hematology/Oncology [address], [place] [address] [place], Chair 11 Hem Onc [facility] 200 [facility] [place], [place] [address] 06/10/2024 9:30 AM EST Laboratory Laboratory [address] [place], [place] [phone] [place], Lab [address] [place], [place] [address] 06/10/2024 10:30 AM EST Hem/Onc Treatment Hematology/Oncology [address], [place] [address] [place], Chair 9 Hem Onc [address] [place], [place] [address] 06/10/2024 11:30 AM EST Office Visit Palliative Medicine [address], [place] [phone] Charlotte Price MD 400 [facility] [place] [phone] Health Maintenance Due Date Last Done Comments DISCUSS TOBACCO CESSATION (REFER TO SMARTSET #9210) 1960 COVID-19 Vaccine (#1) 01/23/1965 Pneumococcal Vaccine: [...] this encounter Medical Devices Implanted Type Area Water Conservationist Device Identifier Shelf Expiration Date Model / Serial / Lot Anuradha [place] Neuro Box Plate, 2x2 Hole Implanted:Qty : 2 on 06/05/2023 by Peter Omalley MD at [place] [facility] Left: Head [id number] / / [place] Neuro Straight Plate 8-Hole W/O Bar Implanted:Qty : 1 on 06/05/2023 by Peter Omalley MD at OR [facility] Left: Head [id number] / / Anuradha [place] Neuro Rectangle Plate Implanted:Qty : 1 on 06/05/2023 by Peter Omalley MD at OR [facility] Left: Head [id number] / / [place] Neuro [place] Hole Cover Plate 10 Mm, W/ Tab Implanted:Qty : 1 on 06/05/2023 by Peter Omalley MD at OR [facility] Left: Head [id number] / / Screw 1.5x4mm Sd Un3 - [id number] Implanted:Qty : 20 on 06/05/2023 by Peter Omalley MD at [place] [facility] Left: Head ANURADHA : CRANIOMAXILLOFACIAL [id number] / / documented as of this encounter [...] Documents on File Type Date Recorded Patient Crop Farmers Expl anation POL 12/12/2023 signed on 12/10 [place] ORDERS FOR LIFE-SUSTAINING TREATMENT * Full Code [...] Advance Directives occurred with: Patient Care Teams Plant Ecologist Relationship Specialty Start Date End Date Amarilys Hamilton CRNP [address] [place] [address] PCP - General Nurse Practitioner 12/11/23 documented as of this encounter
[2024-05-20] MEDS ORDERED: MIRTAZAPINE TAB 15 MG TAB PO SCH (21:00)
[2024-05-20] MEDS ORDERED: levETIRAcetam 500 MG TAB PO SCH (21:00)
[2024-05-20] MEDS: cefTRIAXone SODIUM 1,000 MG/50 ML BAG IV SCH (23:30)
[2024-05-20] MEDS: HEPARIN SOD 5,000 UNIT/0.5 ML VIAL SQ SCH (23:30)
--- OUTSIDE RECORDS SUMMARY | 2024-05-21 06:18 | External Medical Summary | Summary of Care ---
Author Name Unknown Organization [facility] Address [address] [place] [address] Phone [phone] Care Team Providers Care Financial Legal Assistant Name Role Phone Amarilys Hamilton Primary Care Provider [phone] Reason for Visit * Reason Onset Date Comments Advice 05/20/2024 Encounter Details Date Type Department Care Team (Late st Contact Info) Description 05/20/2024 Telephone Hematology/Oncology, [facility] [address] [place] [address] Tita Coffman CRNP [address] [place] [address] Advice Allergies No known active allergiesdocumented as of this encounter (statuses as of 05/20/2024) Medications Medication Sig Dispensed Refills Start Date [...] by mouth at bedtime. 01/15/2023 Active Tiotropium [place] Monohydrate 2.5 MCG/ACT Inhalation Aerosol Solution [...] as of this encounter (statuses as of 05/20/2024) Active Problems Problem Noted Date Diagnosed Date [...] as of this encounter (statuses as of 05/20/2024) Immunizations Name Administration Dates Next Due Seasonal [...] encounter Miscellaneous Notes * Telephone Encounter - Cassia Muller OSA - 05/20/2024 9:14 AM EDT Rescheduled labs and provider Ride was saying that they are worried that they aren't going to be able to do tx due to how much pthas lost with weight She is very sick and wont go to the hospital per her juan c. Contact She is asking if a nurse could call and see what else they could do or what they can help her with in the mean time other than trying to get her to go to the ER * Telephone Encounter - Tracy Cruz OSA - 05/20/2024 8:55 AM EDT Good Morning! I have pt Angeles Johnston calling to cancel her appts for today due to being ill. Please call [phone] to reschedule. documented in this encounter Plan of Treatment Upcoming Encounters Date Type Department Care Team (Late st Contact Info) Description 05/27/2024 12:40 PM EDT Laboratory Laboratory [facility] [address] [place], [place] [phone] [place], Lab [facility] 200 [facility] [place], [place] [address] 05/27/2024 1:15 PM EDT Office Visit Hematology/Oncology [facility] [address] [place] [phone] Bradley Amaya MD 200 [facility] [place] [address] 06/10/2024 9:30 AM EST Laboratory Laboratory [facility] [address] [place] [phone] [place], Lab [facility] 200 [facility] [place], [place] [address] 06/10/2024 10:30 AM EST Hem/Onc Treatment Hematology/Oncology Treatment, [address], [place] [phone] [place], Chair 9 Hem Onc [address] [place], [place] [address] 06/10/2024 11:30 AM EST Office Visit Palliative Medicine [address], [place] [phone] Charlotte Price MD [address] [place] [address] [place] [address] Health Maintenance Due Date Last Done Comments DISCUSS TOBACCO CESSATION (REFER TO SMARTSET #3344) 1960 COVID-19 Vaccine (#1) 01/23/1965 Pneumococcal Vaccine: [...] encounter Medical Devices Implanted Type Area Supervisor Spring Up Device Identifier Shelf Expiration Date Model / Serial / Lot Shanique [place] Neuro Box Plate, 2x2 Hole Implanted:Qty : 2 on 06/05/2023 by Peter Omalley MD at [place] [facility] Left: Head [id number] / / [place] Neuro Straight Plate 8-Hole W/O Bar Implanted:Qty : 1 on 06/05/2023 by Peter Omalley MD at [place] [facility] Left: Head [id number] / / [place] Neuro Rectangle Plate Implanted:Qty : 1 on 06/05/2023 by Peter Omalley MD at [place] [facility] Left: Head [id number] / / [place] Neuro [place] Hole Cover Plate 10 Mm, W/ Tab Implanted:Qty : 1 on 06/05/2023 by Peter Omalley MD at [place] [facility] Left: Head [id number] / / Screw 1.5x4mm Sd Un3 - [id number] Implanted:Qty : 20 on 06/05/2023 by Peter Omalley MD at [place] [facility] Left: Head SHANIQUE : CRANIOMAXILLOFACIAL [id number] / / documented as of this encounter Advance Directives Documents on File Type Date Recorded Patient Chain Mortiser Operator Daniela ZACARIAS 12/12/2023 signed on 12/10 [place] ORDERS FOR LIFE-SUSTAINING TREATMENT * Full Code [...] Advance Directives occurred with: Patient Care Teams Financial Legal Assistant Relationship Specialty Start Date End Date Amarilys Hamilton CRNP [address] [place] [address] PCP - General Nurse Practitioner 12/11/23 documented as of this encounter
--- OUTSIDE RECORDS SUMMARY | 2024-05-21 06:18 | External Medical Summary | Summary of Care ---
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 PEMETREXED NOS 10MG CT CARBOPLATIN INJECTION CT FOSAPREPITANT INJECTION CT INJ PEMBROLIZUMAB Bradley Amaya MD [address] [facility] [place] [id number] Anc Hem/Onc [address] [address] Referral ID Status Reason Start Date Expiration Date V isits Requested Visits Authorized [id number] Authorized 07/23/2023 07/23/2024 [id number] Encounter Details Date Type Department Care Team (Latest Contact Info) Description 04/08/2024 11:45 AM EDT Hem/Onc Treatment Hematology/Oncolog y Treatment, [address] [address] [place] Chair 7 Hem Onc [address] [place] [address] Metastasis to brain (HCC)*; 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 01/15/2023 Active Tiotropium [place] Monohydrate 2.5 MCG/ACT Inhalation Aerosol Solution (Spiriva [...] at bedtime. 60 Tablet 2 03/24/2024 Active Potassium Chloride [facility] ER 10 MEQ Oral Tablet Extended ReleaseIndications :Hypokalemia TAKE ONE TABLET TWICE DAILY 60 Tablet 3 2024 4 Discontinue d(Medicatio n/Dose Changed) Baclofen 10 MG Oral Tablet (Lioresal) Take 1 Tablet by mouth 2 times a day as needed for Muscle spasms. 30 Tablet 03/18/2024 4 Discontinue d(Refill) documented as of this encounter [...] 05/20/2024) Immunizations Name Administration Dates Next Due TD [...] Sign Reading Time Taken Comments Blood Pressure 119/71 04/08/2024 12:09 PM EDT Pulse 63 04/08/2024 12:09 PM EDT Temperature 35.5 C (95.9 F) 04/08/2024 1:04 PM ED T Respiratory Rate 16 04/08/2024 12:09 PM EDT Oxygen Saturation 98% 04/08/2024 12:09 PM EDT Inhaled Oxygen Concentration - - Weight 52.2 kg (115 lb) 04/08/2024 12:09 PM EDT Height - - Body Mass Index 18.56 07/18/2023 9:30 AM EST documented in this [...] as of this encounter Nursing Notes * Quyen Bethea RN - 04/08/2024 12:10 PM EDT Patient ambulatory to chair 2 with friend Patient voices no complaints or concerns Safety and Risk for Injury Patient will remain free from injury. Ensure appropriate safety devices are available. Provide and maintain safe environment. Patient instructed on use of heat and massage functions where applicable. Patient shown how to operate the heat function of the chair and to alert nursing staff if the chair feels too warm. Patient instructed on the risk of potential martino while using the heat function. Goals: patient will remain free of injury Possible barriers to meeting goals: ambulation with IV pole, increase risk of fall Stability of the patient: Moderately stable - low risk of patient condition declining or worsening Summary regarding today's goals: Met: patient remained free of injury PRE-TREATMENT ASSESSMENT: NEURO: denies symptoms CV/RESP: denies symptoms GI/: denies symptoms OTHER: denies any additional symptoms PAIN: 0 Chemotherapy/Immunotherapy agents: KEYTRUDA Consent for chemotherapy drug treatment complete, dated, and signed? yes, date - 07/18/23 Treatment lab parameters met? Yes Has treatment weight changed > than 10%? No Treatment preauthorized? Yes VITALS Filed Vitals: 04/08/24 1209 BP: 119/71 Pulse: 63 Resp: 16 Temp: (!) 34.9 C (94.8 F) SpO2: 98% Weight: 52.2 kg (115 lb) Urine protein: N/A Patient education completed for treatment? Yes Blood transfusion consent signed and complete? NA Return appointment scheduled? Yes Patient had provider visit today? No - If no provider visit must complete Pretreatment Assessment Functional Status: Functional status at today's visit: [...] potential martino while using the heat function. Dr. Amaya aware of lab results, okay to proceed with treatment. Patient discharged in good condition, tolerated well documented in this encounter Plan of Treatment Upcoming Encounters Date Type Department Care Team (Late st Contact Info) Description 05/27/2024 12:40 PM EDT Laboratory Laboratory [facility] [place] [address] [place] [phone] [place], Lab [facility] [address] [place] [id number] 05/27/2024 1:15 PM EDT Office Visit Hematology/Oncology [facility] [place] [address] [place] [address] [phone] Bradley Amaya MD [address] [facility] [place] [address] 06/10/2024 9:30 AM EST Laboratory Laboratory [facility] [place] [address] [place] [address] [place], Lab [facility] [address] [facility] [place] [id number] 06/10/2024 10:30 AM EST Hem/Onc Treatment Hematology/Oncology Treatment, [address] [place] [address] [place], Chair 9 Hem Onc [facility] [address] [place] [id number] 06/10/2024 11:30 AM EST Office Visit Palliative Medicine [facility] [place] [address] [facility], [place] [address] Charlotte Price MD [address] [place] [address] [place] [address] Health Maintenance Due Date Last Done Comments DISCUSS TOBACCO CESSATION (REFER TO SMARTSET #1852) 1960 COVID-19 Vaccine (#1) 01/23/1965 Pneumococcal Vaccine: [...] this encounter Medical Devices Implanted Type Area Boiler House Mechanic Device Identifier Shelf Expiration Date Model / Serial / Lot [employer] [place] [employer] Box Plate, 2x2 Hole Implanted:Qty : 2 on 06/05/2023 by [place]mal[place] [facility] [place] [id number] / / [employer] [place] [employer] Straight Plate 8-Hole W/O Bar Implanted:Qty : 1 on 06/05/2023 by Peter Omalley MD [place] [facility] [place] [id number] / / [employer] [place] [employer] Rectangle Plate Implanted:Qty : 1 on 06/05/2023 by Peter Omalley MD [place] [facility] [place] [id number] / / [employer] [place] [employer] [place] Hole Cover Plate 10 Mm, W/ Tab Implanted:Qty : 1 on 06/05/2023 by Peter Omalley MD [place] [facility] [place] [id number] / / Screw 1.5x4mm Sd Un3 - [id number] Implanted:Qty : 20 on 06/05/2023 by Peter Omalley MD [place] [facility] [place] Head SHANIQUE : CRANIOMAXILLOFACIAL [id number] / / documented as of this encounter [...] Action Date Dose Rate Site NSS infusion Intravenous, at 50 mL/hr, PRN, Starting on Sat04/08/24 at 1300, Until Sat04/08/24 at 1705, Maintenance line Start Infusion 04/08/2024 12:00 PM EDT 50 mL/hr Pembrolizumab (Keytruda) 200 mg in NSS 100 mL infusion 200 mg, IV Piggyback, ONCE, 1 dose, On Sat04/08/24 at 1300, Administer over 30 Minutes, Infuse through 0.2 micron filter. Start Infusion 04/08/2024 12:05 PM EDT 200 mg 226 mL/hr documented in this encounter Advance Directives Documents on File Type Date Recorded Patient Grounding Engineer Expl anation POLST 12/12/2023 signed on 12/10 [place] ORDERS FOR LIFE-SUSTAINING TREATMENT * Full Code [...] Advance Directives occurred with: Patient Care Teams Senior Java Engineer Relationship Specialty Start Date End Date Amarilys Hamilton CRNP [address] [place] [address] PCP - General Nurse Practitioner 12/11/23 documented as of this encounter
[2024-05-21 08:03] LABS: BUN Creatinine Ratio 18.6 (10-20); Calcium 8.1 mg/dl (8.6-10.3); Creatinine Clr Calc Pharmacy 28.8 ml/min; Magnesium 1.9 mg/dl (1.7-2.4); Potassium 3.5 mmol/L (3.5-5.1)
--- NOTE | 2024-05-21 08:16 | Hospitalist Progress Note ---
Date of Service May 21, 2024 Assessment & Plan (1) JUAN J (acute kidney injury): Plan: Suspected pre-renal due to N&V No post renal cause on CT, but has esophagitis and gastritis ? keytruda affect UA pending LR 1L bolus in the ER, additional 1L now then D5 half NSS + KCl @ 100ml/hr overnight (2) Nausea & vomiting: Plan: ?secondary to Keytruda +/- esophagitis, UA pending for infection 1st line: Phenergan 6.25 mg PO TID PRN 2nd line Metoclopramide 10mg IV q6h PRN treat esophagitis with ppi and carafate at this time, if from keytruda may discuss steroids with oncology, typically sees [facility] Pt is with anemia, make npo, consult Gastroenterology (3) Adenocarcinoma of left lung: Plan: Under [facility] oncology on Keytruda alone 3 weekly injections discovered by left frontal brain met, no defined lung source (4) Prolonged QT interval: Plan: Hold further ondansetron/Compazine, hold mirtazapine, monitor on telemetry Daily EKG (5) Hypomagnesemia: Plan: Mg level 1.4 Mg Sulfate 2g IV Repeat with AM labs (6) Skin lesions: Plan: Possibly Keytruda related. Consider dermatology follow up Plan VTE Prophylaxis - heparin 5000 units SQ BID Diet - clear liquids, advance as tolerated mild to moderated malnutrition Admission and Anticipated Discharge Date Admission Date: May 20, 2024 Subjective pt still with some abdominal pain, tolerating chips and sips no distension cardiac is regular with [facility] Physical Exam Physical Exam: pt tolerating some ice chips drop in hgb maybe dilutional some upper quadrant abdominal pain Results & Data Results & Data Vital Signs (Past 12 Hours) Vital Signs Temp Pulse Pulse Resp BP BP Pulse Ox 05/21/24 07:19 98.1 F 69 16 95/62 L 100 05/21/24 07:14 74 05/21/24 02:40 97.7 F 75 16 96/67 L 96 05/20/24 22:00 99.0 F 78 16 106/73 96 05/20/24 21:56 77 05/20/24 21:32 05/20/24 20:22 98.1 F 86 16 93/63 L 98 O2 Del Method 05/21/24 07:19 Room Air 05/21/24 07:14 05/21/24 02:40 Room Air 05/20/24 22:00 Room Air 05/20/24 21:56 05/20/24 21:32 Room Air 05/20/24 20:22 Room Air Laboratory Results review cbc review chemistry PG Care Time/CCT Total # of Minutes Spent Total Time Spent with Patient: Total time spent is greater than 50% in coordination of care (as documented) at patient's floor/unit and/or counseling patient: Coding Level of Care Code 76479 SUB INP/OBS CARE 3/50MIN Diagnoses JUAN J (acute kidney injury) N17.9 Nausea & vomiting R11.2 Adenocarcinoma of left lung C34.92 Prolonged QT interval R94.31 Hypomagnesemia E83.42 Skin lesions L98.9
[2024-05-21 08:27] LABS: Basophils # (auto) 0.02 K/uL (0.00-0.20); Basophils % (auto) 0.5 %; Eosinophils # (auto) 0.12 K/uL (0.00-0.50); Eosinophils % (auto) 2.7 %; Hematocrit (blood only) 25.9 % (37.0-47.0); Immature Granulocytes # (auto) 0.01 K/uL (0.01-0.20); Immature Granulocytes % (auto) 0.2 %; Lymphocytes # (auto) 1.18 K/uL (1.20-3.40); Lymphocytes % (auto) 26.7 %; Mean Corpuscular Hemoglobin 32.1 pg (25.0-34.0); Mean Corpuscular Hgb Conc 34.7 g/dL (32.0-36.0); Mean Corpuscular Volume 92.5 fL (80.0-100.0); Mean Platelet Volume 9.9 fL (9.4-12.4); Monocytes # (auto) 0.44 K/uL (0.11-0.59); Neutrophils # (auto) 2.65 K/uL (1.40-6.50); Neutrophils % (auto) 59.9 %; Platelet Count 204 K/uL (130-400); RDW Coefficient of Variation 12.5 % (11.5-14.5); RDW Standard Deviation 42.8 fL (36.4-46.3); White Blood Count 4.42 K/ul (4.8-10.8)
[2024-05-21] MEDS: CETIRIZINE HCL 10 MG TABLET PO SCH (08:38)
[2024-05-21] MEDS: CHOLECALCIFEROL 25 MCG (1000 UNITS) TAB PO SCH (08:38)
[2024-05-21] MEDS: UMECLIDINIUM BROMIDE 62.5MCG/BLISTER 7 PUFFS/INHALER INH SCH (08:39)
--- NOTE | 2024-05-21 08:48 | Electrocardiogram Report ---
Test Reason : Blood Pressure : */* mmHG Vent. Rate : 72 BPM Atrial Rate : 72 BPM P-R Int : 214 ms QRS Dur : 82 ms QT Int : 470 ms P-R-T Axes : 41 38 40 degrees QTcB Int : 514 ms Sinus rhythm with 1st degree A-V block Low voltage QRS Prolonged QT Abnormal ECG When compared with ECG of 20-May-2024 10:47, Premature ventricular complexes are no longer Present Vent. rate has decreased by 38 bpm QRS voltage has decreased Nonspecific ST and T wave abnormality no longer present Confirmed by Eloy Marquez ([id number]) on 05/21/2024 8:47:49 AM Referred By: REFERRED SELF Confirmed By: Eloy Marquez
[2024-05-21] MEDS: METOCLOPRAMIDE HCL INJ 5 MG/ML 2 ML VIAL IV PRN (08:49)
[2024-05-21] MEDS ORDERED: PANTOprazole 40 MG TAB PO SCH (09:00)
[2024-05-21] MEDS ORDERED: FAMOTIDINE 20 MG TAB PO SCH (09:00)
[2024-05-21] MEDS: PANTOprazole 40 MG/10 ML SYR IV SCH (09:34)
[2024-05-21] MEDS: SUCRALFATE 1 GM/10 ML UDC PO SCH (09:36)
--- NOTE | 2024-05-21 10:40 | Gastrointestinal Consultation ---
<Statement entered by Toro Jeter MD - 05/21/24 13:06> I personally saw and examined the patient. I have reviewed the chart and agree with the documentation provided by the CUSTOMER SERVICE TELLER including discussion about the assessment, treatment and plan. Briefly, 64 year old female with history of lung cancer with brain mets on keytruda every 3 weeks, presented to hospital with nausea, vomiting, stomach pain, poor appetite, and chills. CT suggestive of esophagitis and possible gastroenteritis. Since admission, her hgb had dropped from 12 to 9. Her stools are brown today. I suspect infectious versus ulcerative esophagitis. Certainly happy to do an EGD and colonoscopy tomorrow. My concern is that she may not be able to tolerate the preparation. She would like to try. N.p.o. after midnight GoLytely today. Please give her Zofran prior to the GoLytely if she cannot tolerate it, please just stop the medication we will do an EGD only tomorrow. Protonix IV 40 mg twice daily till then. We appreciate the consult. Date of Consultation May 21, 2024 Assessment & Plan (1) Esophagitis: (2) Anemia: Plan Patient is a 64 year old female with history of lung cancer with brain heriberto on keytruda every 3 weeks, presented to hospital with nausea, vomiting, stomach pain, poor appetite, and chills. CT suggestive of esophagitis and possible gastroenteritis. Since admission, her hgb had dropped from 12 to 9. I discussed this case with Dr. Jeter. - we discussed a colonoscopy and egd to further evaluate. patient is agreeable. will plan to perform these tomorrow. - continue to follow hgb/hct. transfuse as needed. - continue with protonix 40mg IV bid and carafate 1 gm qid. History of Present Illness Reason for Consultation: anemia / esophagitis Requesting Physician: Kenneth Rivera MD Attending Physician: Kenneth Rivera MD History of Present Illness Patient is a 64 year old female with a past medical history of left lung adenocarcinoma with brain heriberto on Keytruda injections every 3 weeks who presented to the ED on 05/20 with complaints of nausea, vomiting, chills, decreased appetite, and abdominal pain. Abdominal pain described as cramping, rated 5/10, comes and goes. Associated nausea and vomiting with decreased appetite. Patient was concerned with symptoms and presented to the ED. Upon evaluation she was found to have a CT scan done on 05/20 showing distal wall thickening with adjacent mediastinal fluid, paraesophageal lymph nodes, and question of gastroenteritis. Since admission, she admits that she has had no further nausea or vomiting. Still some stomach discomfort. Since arrival, her hgb has dropped from 12 to 9. She is not reporting seeing any blood in the stools or melena. I discussed with nursing and there have not been signs of any active GI blood loss. Patient has never had a colonoscopy or EGD. Allergies Allergy/AdvReac Type Severity Reaction Status Date / Time No Known Allergies Allergy Unverified 05/20/24 12:50 Home Medications Medication Instructions Recorded Confirmed Type albuterol sulfate 2.5 mg/3 mL 2.5 mg continuous nebulization UD 06/02/23 05/20/24 History (0.083 %) solution for nebulization PRN Shortness Of Breath Or Wheezing atorvastatin 80 mg tablet 80 mg PO DAILY 06/02/23 05/20/24 History cholecalciferol (vitamin D3) 50 50 mcg PO DAILY 06/02/23 05/20/24 History mcg (2,000 unit) tablet (Vitamin D3) hydroxyzine HCl 25 mg tablet 25 mg PO TID PRN Anxiety 06/02/23 05/20/24 History mirtazapine 30 mg tablet 30 mg PO HS 06/02/23 05/20/24 History tiotropium bromide 2.5 2 puff inhalation DAILY 06/02/23 05/20/24 History mcg/actuation mist for inhalation (Spiriva Respimat) docusate sodium 100 mg capsule 100 mg PO QID PRN contipation 09/09/23 05/20/24 History levetiracetam 1,000 mg tablet 1,000 mg PO BID #60 tabs 09/11/23 05/20/24 Rx (Keppra) magnesium oxide 400 mg (241.3 mg 400 mg PO BID #60 tabs 09/11/23 05/20/24 Rx magnesium) tablet pantoprazole 40 mg tablet,delayed 40 mg PO DAILY #30 tabs 05/13/24 05/20/24 Rx release (Protonix) promethazine 6.25 mg/5 mL oral 6.25 mg (5 mL) PO TID PRN nausea 05/13/24 05/20/24 Rx syrup and vomiting #120 mL cetirizine 10 mg tablet 10 mg PO DAILY 05/20/24 05/20/24 History fenofibrate 160 mg tablet 160 mg PO DAILY 05/20/24 05/20/24 History ondansetron HCl 8 mg tablet 8 mg PO Q8H PRN Nausea 05/20/24 05/20/24 History potassium chloride 10 mEq 10 meq PO BID 05/20/24 05/20/24 History tablet,extended release(part/cryst) sennosides 8.6 mg tablet (senna) 8.6 mg PO BID 05/20/24 05/20/24 History Patient History Medical History Anemia Muscle spasm Brain metastasis Right arm weakness Brain lesion Anxiety Allergic rhinitis Depression GERD (gastroesophageal reflux disease) COPD (chronic obstructive pulmonary disease) Hyperlipidemia Hypertension Surgical History H/O craniotomy 06/05/23 - History of surgery For right arm fracture S/P hysterectomy Family History Mother , age 69 of liver cancer Liver cancer Father , in his early 70s Myocardial infarction Temporary pacemaker Brother Myocardial infarction Sister Stroke Hypertension Daughter No problems noted. Social History Smoking Status: Current every day smoker Tobacco Type: Cigarettes Age Started Using Tobacco: 16; packs per day: 0.25; Cigarettes Per Day: 1/2 pack to 1 pack for the past 40-50 years; Second Hand Exposure: Yes; Do You Dip or Chew Tobacco: No; Tobacco Cessation Education Requested by Patient: No Hx Alcohol Use: No Hx Substance Use: No Preferred Language: Montserratian Communication Ability: Effective Visual Impairment: No Limitations Hearing Ability: Normal Senior Environmental Practice Leader Required: No Beliefs That Will Affect Care: None marital status: / Current Living Situation: Alone current occupational status: retired 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 How many Children do You have: 1 Other Information That Helps Us Care for You: No Feels Safe at Home: Yes Safety Concerns: Feels Safe At This Time Diet: regular caffeine: Yes (1 cup/day) during the past year weight has: remained stable Assistive Devices: Walker Review of Systems Review of Systems: All systems reviewed & are unremarkable except as noted in HPI & below Physical Exam Constitutional: WD/WN, vitals as above Respiratory: normal respiratory effort, lungs clear to auscultation Cardiovascular: Rate/Rhythm: regular rate and regular rhythm Gastrointestinal (Abdomen): mild epigastric tenderness, no guarding, soft, normal bowel sounds. Psychiatric: Orientation: alert and oriented x 3 Results & Data Vital Signs (Past 12 Hours) Vital Signs Temp Pulse Pulse Resp BP Pulse Ox O2 Del Method 05/21/24 07:19 98.1 F 69 16 95/62 L 100 Room Air 05/21/24 07:14 74 05/21/24 02:40 97.7 F 75 16 96/67 L 96 Room Air Coding Level of Care Code 33007 INT INP/OBS CARE 2/55MIN Diagnoses Esophagitis K20.90 Anemia D64.9
[2024-05-21] MEDS: LAVAGE SOLUTION 4000ML PO ONE (12:58)
[2024-05-21] MEDS: NICOTINE 14 MG/24 HR PATCH TD SCH (17:10)
--- NOTE | 2024-05-22 09:30 | Anesthesiology Consultation ---
Date of Service May 22, 2024 Assessment & Plan (1) Encounter for pre-operative examination: Chart Review Chart Review: Acceptable Risk for Surgery, Patient NOT seen in Pre Admission Testing and bale breaker operator initiated Consults Requested none Proposed Anesthesia Anesthesia Type: MAC History Surgery Operation Date: 05/22/24 16:55 Proposed Procedures p Colonoscopy EGD Steffany Jeter MD Height/Weight Height: 5 ft 6 in Weight: 45.9 kg Allergies Allergy/AdvReac Type Severity Reaction Status Date / Time No Known Allergies Allergy Unverified 05/20/24 12:50 Medications Home Medications Medication Instructions Recorded Confirmed Last Taken albuterol sulfate 2.5 mg/3 mL 2.5 mg continuous nebulization UD 06/02/23 05/20/24 Unknown (0.083 %) solution for nebulization PRN Shortness Of Breath Or Wheezing atorvastatin 80 mg tablet 80 mg PO DAILY 06/02/23 05/20/24 Unknown cholecalciferol (vitamin D3) 50 50 mcg PO DAILY 06/02/23 05/20/24 Unknown mcg (2,000 unit) tablet (Vitamin D3) hydroxyzine HCl 25 mg tablet 25 mg PO TID PRN Anxiety 06/02/23 05/20/24 Unknown mirtazapine 30 mg tablet 30 mg PO HS 06/02/23 05/20/24 Unknown tiotropium bromide 2.5 2 puff inhalation DAILY 06/02/23 05/20/24 Unknown mcg/actuation mist for inhalation (Spiriva Respimat) docusate sodium 100 mg capsule 100 mg PO QID PRN contipation 09/09/23 05/20/24 Unknown levetiracetam 1,000 mg tablet 1,000 mg PO BID #60 tabs 09/11/23 05/20/24 Unknown (Keppra) magnesium oxide 400 mg (241.3 mg 400 mg PO BID #60 tabs 09/11/23 05/20/24 Unknown magnesium) tablet pantoprazole 40 mg tablet,delayed 40 mg PO DAILY #30 tabs 05/13/24 05/20/24 Unknown release (Protonix) promethazine 6.25 mg/5 mL oral 6.25 mg (5 mL) PO TID PRN nausea 05/13/24 05/20/24 Unknown syrup and vomiting #120 mL cetirizine 10 mg tablet 10 mg PO DAILY 05/20/24 05/20/24 Unknown fenofibrate 160 mg tablet 160 mg PO DAILY 05/20/24 05/20/24 Unknown ondansetron HCl 8 mg tablet 8 mg PO Q8H PRN Nausea 05/20/24 05/20/24 Unknown potassium chloride 10 mEq 10 meq PO BID 05/20/24 05/20/24 Unknown tablet,extended release(part/cryst) sennosides 8.6 mg tablet (senna) 8.6 mg PO BID 05/20/24 05/20/24 Unknown Active Medications Generic Name Dose Route Start Last Admin Trade Name Freq PRN Reason Stop Dose Admin Cetirizine HCl 10 mg 05/21/24 09:00 05/22/24 08:32 Cetirizine Hcl 10 Mg Tablet PO 06/20/24 08:59 10 mg DAILY GIBSON Administration Heparin Sodium (Porcine) 5,000 units 05/20/24 22:15 05/22/24 08:39 Heparin Sod 5,000 Unit/0.5 Ml Vial SQ 06/19/24 22:14 5,000 units Q12 GIBSON Administration Ceftriaxone Sodium 1,000 mg in 50 mls @ 100 mls/hr 05/20/24 22:15 05/21/24 22:10 Rocephin IV 05/25/24 22:14 Infused Q24H GIBSON Infusion Pantoprazole Sodium 40 mg in 10 mls @ 5 mls/min 05/21/24 09:00 05/22/24 08:35 Protonix IV 06/20/24 08:59 5 mls/min BID GIBSON Administration Levetiracetam 500 mg 05/20/24 21:00 05/22/24 08:34 Levetiracetam 500 Mg Tab PO 06/19/24 20:59 500 mg BID GIBSON Administration Magnesium Oxide 400 mg 05/20/24 21:00 05/22/24 08:34 Magnesium Oxide 400 Mg Tab PO 06/19/24 20:59 400 mg BID GIBSON Administration Metoclopramide HCl 10 mg 05/20/24 19:39 05/21/24 08:49 Metoclopramide Hcl Inj 5 Mg/Ml 2 Ml Vial IV 06/19/24 19:38 10 mg Q6H PRN Administration Nausea Miscellaneous 1 each 05/22/24 08:59 05/22/24 08:35 Remove Nicoderm Patch N/A 06/21/24 08:58 1 each DAILY@0859 GIBSON Administration Nicotine 1 patch 05/21/24 16:30 05/21/24 17:10 Nicotine 14 Mg/24 Hr Patch TD 06/20/24 16:29 1 patch QAM GIBSON Administration Potassium Chloride 10 meq 05/20/24 21:00 05/22/24 08:39 Potassium Chloride 10 Meq Tabcr PO 06/19/24 20:59 10 meq BID GIBSON Administration Sennosides 8.6 mg 05/20/24 21:00 05/22/24 08:39 Senna 8.6 Mg Tab PO 06/19/24 20:59 8.6 mg BID GIBSON Administration Sucralfate 1 gm 05/21/24 09:00 05/22/24 08:32 Sucralfate 1 Gm/10 Ml Udc PO 06/20/24 08:59 1 gm QID GIBSON Administration Umeclidinium [place] 1 puffs 05/21/24 09:00 05/22/24 08:35 Umeclidinium [place] 62.5mcg/Blister 7 Puffs/Inhaler INH 06/20/24 08:59 1 puffs DAILY GIBSON Administration Vitamin D 50 mcg 05/21/24 09:00 05/22/24 08:33 Cholecalciferol 25 Mcg (1000 Units) Tab PO 06/20/24 08:59 50 mcg DAILY GIBSON Administration Past Medical History Medical History Anemia Muscle spasm Brain metastasis Right arm weakness Brain lesion Anxiety Allergic rhinitis Depression GERD (gastroesophageal reflux disease) COPD (chronic obstructive pulmonary disease) Hyperlipidemia Hypertension Past Family History Family History Mother , age 69 of liver cancer Liver cancer Father , in his early 70s Myocardial infarction Temporary pacemaker Brother Myocardial infarction Sister Stroke Hypertension Daughter No problems noted. Past Surgical History Surgical History H/O craniotomy 06/05/23 - History of surgery For right arm fracture S/P hysterectomy Social History Smoking Status: Current every day smoker Smoking cigarettes per day: 1/2 pack to 1 pack for the past 40-50 years Do You Dip or Chew Tobacco: No Hx Alcohol Use: No Alcohol type: hard liquor alcohol intake frequency: 0-2 drinks per day Hx Substance Use: No substance use type: does not use Physical Exam Vital Signs Last Vital Signs Temp 36.4 C L 05/22/24 07:46 Pulse 72 05/22/24 07:46 Resp 18 05/22/24 07:46 BP 95/64 L 05/22/24 07:46 Pulse Ox 100 05/22/24 07:46 O2 Del Method Room Air 05/22/24 07:46 Testing Laboratory Results 05/21/24 12:21 05/21/24 07:13 PT 13.3 Seconds (9.0-12.0) H 05/20/24 11:17 INR 1.2 (0.9-1.1) H 05/20/24 11:17 Urine Color Dark Yellow 05/20/24 20:17 Urine Appearance Turbid (Clear) A 05/20/24 20:17 Urine pH 5.0 (4.5-7.5) 05/20/24 20:17 Ur Specific [place] 1.024 (1.000-1.030) 05/20/24 20:17 Urine Protein 1+ (Negative) H 05/20/24 20:17 Urine Glucose (UA) Negative (Negative) 05/20/24 20:17 Urine Ketones Trace (Negative) H 05/20/24 20:17 Urine Nitrite Negative (Negative) 05/20/24 20:17 Ur Leukocyte Esterase 3+ (Negative) H 05/20/24 20:17 Urine WBC (Auto) >50 /hpf (0-5) H 05/20/24 20:17 Urine RBC (Auto) 0-2 /hpf (0-2) 05/20/24 20:17 U Hyaline Cast (Auto) >20 /lpf (0-2) H 05/20/24 20:17 U Epithel Cells (Auto) 11-20 /hpf (0-2) H 05/20/24 20:17 Urine Bacteria (Auto) 2+ (None Seen) H 05/20/24 20:17 05/20/24 11:17 Aerobic Blood Culture - Preliminary Blood No growth in Aerobic bottle after 24 hours. Anaerobic Blood Culture - Final 05/20/24 20:17 Urine Culture - Final Urine,Clean Catch More than three types of organisms present, all high counts. Repeat collection recommended. No further identifications or sensitivities to follow. Electrocardiogram Date: 05/21/24 Test Reason : Blood Pressure : */* mmHG Vent. Rate : 72 BPM Atrial Rate : 72 BPM P-R Int : 214 ms QRS Dur : 82 ms QT Int : 470 ms P-R-T Axes : 41 38 40 degrees QTcB Int : 514 ms Sinus rhythm with 1st degree A-V block Low voltage QRS Prolonged QT Abnormal ECG When compared with ECG of 20-May-2024 10:47, Premature ventricular complexes are no longer Present Vent. rate has decreased by 38 bpm QRS voltage has decreased Nonspecific ST and T wave abnormality no longer present Chest X-Ray Date: 05/20/24 XR chest 1V portable CLINICAL HISTORY: Nausea and vomiting. COMPARISON STUDY: Chest CT June 01, 2023. Chest radiograph September 09, 2023. FINDINGS: Lung volumes are normal. Lungs are clear. There is no pneumothorax or pleural effusion. Cardiac size is normal. Mediastinal contours are normal. There is no evidence for pulmonary edema. IMPRESSION: No acute cardiopulmonary findings. Echocardiogram Date: 06/02/23 EF: 55-60 LV Function: normal RWMA: + none Other Findings: + atrial enlargement (right mild), + LVH (mild) and + diastolic dysfunction (Grade I) Valvular Disease: + MR (mild)
--- NOTE | 2024-05-22 09:39 | History & Physical Bridge Note ---
<Statement entered by Toro Jeter MD - 05/22/24 10:14> I personally saw and examined the patient. I have reviewed the chart and agree with the documentation provided by the ACOUSTIC ENGINEER including discussion about the assessment, treatment and plan. Unable to prep completely. plan for egd today. Date of Service May 22, 2024 History & Physical Bridge Note I have examined the patient, reviewed the History & Physical and in the interval since the performance of the History & Physical I have noted the following changes of clinical significance: no changes noted. patient tells me that she was only able to tolerate half of her prep last evening. she does tell me that stools have been coming out a clear pink. she tells me she does not think she can handle any further prepping. she has some sob but it is at baseline per patient. no other GI concerns currently. - will proceed with EGD today and attempt colonoscopy.
[2024-05-22] MEDS ORDERED: SIMETHICONE (ENDO) IR PRN (10:15)
[2024-05-22] MEDS: SODIUM CHLORIDE 0.9% 500 ML IV SCH (10:40)
[2024-05-22] MEDS: PROPOFOL IV EMULSION 10 MG/ML 20 ML VIAL IV ONE (11:00)
[2024-05-22] MEDS: LIDOCAINE 2% 2 ML VIAL/AMP(20MG/ML) INFIL ONE (11:00)
[2024-05-22] MEDS ORDERED: ALUMINUM/MAGNESIUM SUSP 30 ML UDC PO PRN (11:04)
--- NOTE | 2024-05-22 12:23 | Anesthesiology Progress Note ---
Date of Service May 22, 2024 Anesthesia Post Procedure Vital Signs Vital Signs: Temp Pulse Pulse Resp BP BP Pulse Ox 05/22/24 11:26 71 16 112/78 100 05/22/24 11:11 75 16 95/62 L 100 05/22/24 10:56 36 C L 84 14 100/67 98 05/22/24 10:11 36.5 C 71 16 113/64 99 05/22/24 10:01 05/22/24 07:46 36.4 C L 72 18 95/64 L 100 05/22/24 07:19 72 05/22/24 03:05 36.5 C 77 16 100/61 98 05/21/24 22:51 36.8 C 68 16 98/64 L 100 05/21/24 22:42 05/21/24 22:11 71 05/21/24 18:57 36.6 C 69 18 101/67 99 05/21/24 14:52 36.5 C 75 16 101/71 95 05/21/24 14:28 76 05/21/24 13:47 Pulse Ox O2 Del Method O2 Del Method 05/22/24 11:26 Room Air 05/22/24 11:11 Room Air 05/22/24 10:56 Room Air 05/22/24 10:11 Room Air 05/22/24 10:01 Room Air 05/22/24 07:46 Room Air 05/22/24 07:19 05/22/24 03:05 Room Air 05/21/24 22:51 Room Air 05/21/24 22:42 Room Air 05/21/24 22:11 05/21/24 18:57 Room Air 05/21/24 14:52 Room Air 05/21/24 14:28 05/21/24 13:47 94 Room Air Transfer of Care Handoff Completed per policy Notes Mental Status: alert / awake / arousable and participated in evaluation Patient Amnestic to Procedure: Yes Nausea / Vomiting: adequately controlled Pain: adequately controlled Airway Patency, RR, SpO2: stable & adequate BP & HR: stable & adequate Hydration State: stable & adequate Anesthetic Complications: no major complications apparent
--- NOTE | 2024-05-22 12:47 | GI REPORT ---
[facility] Patient: LONDON EASON : 1960 Sex at : Female Age: 64 Years Procedure: Upper GI endoscopy Date: 05/22/2024 Attending Physician: Toro Jeter MD Referring MD: Remedios Lew Md Indications: - Dysphagia Medications: - Monitored Anesthesia Care Complications: - No immediate complications. Estimated Blood Loss: - Estimated blood loss: None. - Estimated blood loss was minimal. Procedure: - Prior to the procedure, a History and Physical was performed, and patient medications and allergies were reviewed. The patient's tolerance of previous anesthesia was also reviewed. The risks and benefits of the procedure and the sedation options and risks were discussed with the patient. All questions were answered, and informed consent was obtained. Prior Anticoagulants: The patient has taken no anticoagulant or antiplatelet agents. ASA Grade Assessment: IV - A patient with severe systemic disease that is a constant threat to life. After reviewing the risks and benefits, the patient was deemed in satisfactory condition to undergo the procedure. - The egd scope was introduced through the mouth and advanced to the third part of the duodenum. - The upper GI endoscopy was accomplished without difficulty. - The patient tolerated the procedure well. Findings: - LA Grade D (one or more mucosal breaks involving at least 75% of esophageal circumference) esophagitis with no bleeding was found at the gastroesophageal junction (on retroflexion). Biopsies were taken with a cold forceps for histology. Severe ulcerative esophagitis with nodularity but no bleeding. Biopsies done as patient has metastatic lung ca to r/o infiltrative lesion but appears acid peptic. - Localized moderate inflammation characterized by erythema was found in the entire examined stomach. Biopsies were taken with a cold forceps for Helicobacter pylori testing. - The examined duodenum was normal. Impression: - LA Grade D reflux esophagitis with no bleeding. Rule out Wright's esophagus. Biopsied. - Severe ulcerative esophagitis with nodularity but no bleeding. Biopsies done as patient has metastatic lung ca to r/o infiltrative lesion but appears acid peptic. - Acute gastritis, characterized by erythema. Biopsied. - Normal examined duodenum. Recommendation: - Discharge patient to home (ambulatory). - Resume previous diet. - Continue present medications. - Await pathology results. - Return to primary care physician as previously scheduled. - Patient has a contact number available for emergencies. The signs and symptoms of potential delayed complications were discussed with the patient. Return to normal activities tomorrow. Written discharge instructions were provided to the patient. - Continue iv ppi bid, can use carafate or GI cocktail to help prior to eating food. Procedure Code(s): - 35188, Esophagogastroduodenoscopy, flexible, transoral; with biopsy, single or multiple Diagnosis Code(s): - R13.10, Dysphagia, unspecified - K21.00, Gastro-esophageal reflux disease with esophagitis, without bleeding - K29.00, Acute gastritis without bleeding CPT(R) - 2022 copyright [employer]. All Rights Reserved. The CPT codes, CCI edits and ICD codes generated are intended as suggestions and were generated based on input data. These codes are preliminary and upon material combiner review may be revised to meet current compliance and payer requirements. The provider is responsible for the final determination of appropriate codes, and modifiers. Toro Jeter MD This document has been electronically signed. Note Initiated:05/22/2024 Note Completed:05/22/2024 12:46 PM [id number]
--- NOTE | 2024-05-22 14:00 | Anesthesiology Progress Note ---
Date of Service May 22, 2024 Anesthesia Post Procedure Vital Signs Vital Signs: Temp Pulse Pulse Resp BP BP Pulse Ox 05/22/24 13:57 64 05/22/24 13:00 05/22/24 12:15 36.4 C L 68 16 102/65 05/22/24 11:26 71 16 112/78 100 05/22/24 11:11 75 16 95/62 L 100 05/22/24 10:56 36 C L 84 14 100/67 98 05/22/24 10:11 36.5 C 71 16 113/64 99 05/22/24 10:01 05/22/24 07:46 36.4 C L 72 18 95/64 L 100 05/22/24 07:19 72 05/22/24 03:05 36.5 C 77 16 100/61 98 05/21/24 22:51 36.8 C 68 16 98/64 L 100 05/21/24 22:42 05/21/24 22:11 71 05/21/24 18:57 36.6 C 69 18 101/67 99 05/21/24 14:52 36.5 C 75 16 101/71 95 05/21/24 14:28 76 Pulse Ox O2 Del Method O2 Del Method 05/22/24 13:57 05/22/24 13:00 94 Room Air 05/22/24 12:15 Room Air 05/22/24 11:26 Room Air 05/22/24 11:11 Room Air 05/22/24 10:56 Room Air 05/22/24 10:11 Room Air 05/22/24 10:01 Room Air 05/22/24 07:46 Room Air 05/22/24 07:19 05/22/24 03:05 Room Air 05/21/24 22:51 Room Air 05/21/24 22:42 Room Air 05/21/24 22:11 05/21/24 18:57 Room Air 05/21/24 14:52 Room Air 05/21/24 14:28 Transfer of Care Handoff Completed per policy Notes Mental Status: alert / awake / arousable and participated in evaluation Patient Amnestic to Procedure: Yes Nausea / Vomiting: adequately controlled Pain: adequately controlled Airway Patency, RR, SpO2: stable & adequate BP & HR: stable & adequate Hydration State: stable & adequate Anesthetic Complications: no major complications apparent
--- NOTE | 2024-05-22 16:32 | Hospitalist Progress Note ---
Date of Service May 22, 2024 Assessment & Plan (1) JUAN J (acute kidney injury): Plan: Suspected pre-renal due to N&V No post renal cause on CT, but has esophagitis and gastritis ? keytruda affect UA negative Improved (2) Nausea & vomiting: Plan: ?secondary to Keytruda +/- esophagitis, UA pending for infection 1st line: Phenergan 6.25 mg PO TID PRN 2nd line Metoclopramide 10mg IV q6h PRN treat esophagitis with ppi and carafate at this time, if from keytruda may discuss steroids with oncology, typically sees [facility] Pt is with anemia. GI performed EGD. Showed esophagitis and gastritis that were biopsied. Currently on IV Protonix. Continue clear liquid diet. 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 Consider dermatology follow up Plan VTE Prophylaxis - heparin 5000 units SQ BID Diet - clear liquids, advance as tolerated mild to moderated malnutrition Admission and Anticipated Discharge Date Admission Date: May 20, 2024 Subjective Patient got back from EGD. Still has some belly pain. Tolerating clear liquid diet. EGD findings reviewed. Review of Systems Review of Systems: All systems reviewed & are unremarkable except as noted in Subjective Physical Exam Physical Exam: General: Awake, conversant, chronically ill-appearing, cachectic with bitemporal and intercostal muscle wasting Heart: S1, S2/regular rate and rhythm, no murmur rubs or gallops Lungs: Clear to auscultation bilaterally. Normal effort Abdomen: Soft/nondistended. Epigastric tenderness with no rebound, rigidity or guarding. No hepatosplenomegaly Extremities: No clubbing/cyanosis. No edema Behavior: Appropriate, cooperative Results & Data Results & Data Vital Signs (Past 12 Hours) Vital Signs Temp Pulse Pulse Resp BP BP Pulse Ox 05/22/24 15:57 36.3 C L 74 18 103/64 96 05/22/24 13:57 64 05/22/24 13:00 05/22/24 12:15 36.4 C L 68 16 102/65 05/22/24 11:26 71 16 112/78 100 05/22/24 11:11 75 16 95/62 L 100 05/22/24 10:56 36 C L 84 14 100/67 98 05/22/24 10:11 36.5 C 71 16 113/64 99 05/22/24 10:01 05/22/24 07:46 36.4 C L 72 18 95/64 L 100 05/22/24 07:19 72 Pulse Ox O2 Del Method O2 Del Method 05/22/24 15:57 Room Air 05/22/24 13:57 05/22/24 13:00 94 Room Air 05/22/24 12:15 Room Air 05/22/24 11:26 Room Air 05/22/24 11:11 Room Air 05/22/24 10:56 Room Air 05/22/24 10:11 Room Air 05/22/24 10:01 Room Air 05/22/24 07:46 Room Air 05/22/24 07:19 PG Care Time/CCT Total # of Minutes Spent Total Time Spent with Patient: Total time spent is greater than 50% in coordination of care (as documented) at patient's floor/unit and/or counseling patient: Coding Level of Care Code 47189 SUB INP/OBS CARE 2/35MIN Diagnoses JUAN J (acute kidney injury) N17.9 Nausea & vomiting R11.2 Adenocarcinoma of left lung C34.92 Prolonged QT interval R94.31 Hypomagnesemia E83.42 Skin lesions L98.9
[2024-05-23 09:41] LABS: Calcium 9.3 mg/dl (8.6-10.3); Creatinine Clr Calc Pharmacy 37.5 ml/min; Potassium 3.6 mmol/L (3.5-5.1)
[2024-05-23] MEDS: PANTOprazole 40 MG TAB PO SCH (09:58)
--- NOTE | 2024-05-23 11:07 | Discharge Summary ---
Date of Service May 23, 2024 Admission HPI Per Admitting Provider Angeles Johnston is a 64 year old female with left lung adenocarcinoma on 3 weekly Keytruda injections who presents to the ER with nausea, vomiting, chills and abdominal pain. She notes generalized abdominal pain for the last 2 days but appears improved today. Cramping severity, currently severity 5/10 but comes and goes. Associated nausea and vomiting with decreased appetite. She has not eaten or drunk much in the last 3 days. No fevers, dysphagia or odynophagia. 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 She always feels cold since starting Keytruda in in September. She notes ongoing back pain stable for the last 3 months. New cough for the last 2 days and feels she cannot get enough air while coughing but otherwise not short of breath. No nasal congestion or sinus pain. Cough is non productive. No urinary symptoms. She did not take any of her usual medications this morning. Admission Exam Per Admitting Provider Constitutional: well developed; + not well nourished and no acute distress Eyes: PERRL, conjunctivae normal, anicteric sclerae ENMT: external ear and nose normal, oropharynx normal Respiratory: normal respiratory effort, lungs clear to auscultation Cardiovascular: RRR, no murmur, no edema Gastrointestinal (Abdomen): Inspection/Auscultation: abdomen normal to inspection; abdomen not distended Percussion/Palpation: + abdomen tender (mild epigastric) and abdomen soft; no guarding and abdomen not rigid Musculoskeletal: no cyanosis or clubbing, extremities motor strength 5/5 Skin: papular skin lesion on nose and all 4 extremities without surrounding erythema Neurologic: moves all extremities and awake; not confused Psychiatric: A+Ox3, euthymic affect Principal Diagnosis Acute kidney injury, prerenal due to nausea vomiting and abdominal pain Nausea vomiting and abdominal pain due to side effects of Keytruda Esophagitis and gastritis Prolonged QT Hypomagnesemia Discharge Exam General: Awake, conversant, chronically ill-appearing, cachectic with bitemporal and intercostal muscle wasting Heart: S1, S2/regular rate and rhythm, no murmur rubs or gallops Lungs: Clear to auscultation bilaterally. Normal effort Abdomen: Soft/nondistended. Epigastric tenderness with no rebound, rigidity or guarding. No hepatosplenomegaly Extremities: No clubbing/cyanosis. No edema Behavior: Appropriate, cooperative Discharge Data Allergies Allergy/AdvReac Type Severity Reaction Status Date / Time No Known Allergies Allergy Unverified 05/20/24 12:50 Consultations 05/20/24 12:48 ED Decision to Admit Stat 05/21/24 09:27 Consult Gastroenterology Routine Procedures Performed Operation Date: 05/22/24 16:55 Actual Procedures p EGD Biopsy Cytology - Toro Jeter MD Ordered Studies 05/20/24 10:47 CT head/brain wo con Stat 05/20/24 12:05 CT abd pelvis wo con Stat Hospital Course (1) JUAN J (acute kidney injury): Suspected pre-renal due to N&V No post renal cause on CT, but has esophagitis and gastritis ? keytruda affect UA negative Resolved (2) Nausea & vomiting: ?secondary to Keytruda +/- esophagitis, Treated with Phenergan 6.25 mg PO TID PRN and metoclopramide 10mg IV q6h PRN Treated esophagitis with ppi and carafate Resolved Pt is with anemia. GI performed EGD. Showed esophagitis and gastritis that were biopsied. Biopsy results pending and will need to be followed up on outpatient. Patient was switched to p.o. Protonix Diet was advanced. Patient is now tolerating a solid diet Discharge on p.o. 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 Consider dermatology follow up Plan mild to moderated malnutrition Discharge to home today Total Time Total Time Spent Total Time Spent (In Minutes): 35 Discharge Plan Discharge Items Patient Disposition: Home - Self-Care Reason For Visit: JUAN J Discharge Diagnosis: Acute kidney injury, prerenal due to nausea vomiting and abdominal pain Nausea vomiting and abdominal pain due to side effects of Keytruda Esophagitis and gastritis Prolonged QT Hypomagnesemia Activity: Resume your previous activity Non-emergency contact: Primary Care Provider Call non-emergency contact if: you have any medication questions and your symptoms worsen Follow-up/Referrals: Amarilys Hamilton CRNP [Primary Care Provider] - Diet: Regular Addtl Attending Provider Instructions: Advised to follow-up with PCP in 1 week Pending Studies at Discharge: Yes Studies:: Biopsies taken during EGD Stand-Alone Forms: My [facility], Smoking Cessation Medications and DC Order Prescriptions: Continued atorvastatin 80 mg tablet 80 mg PO DAILY mirtazapine 30 mg tablet 30 mg PO HS hydroxyzine HCl 25 mg tablet 25 mg PO TID PRN (Reason: Anxiety) Spiriva Respimat 2.5 mcg/actuation mist 2 puff INHALATION DAILY albuterol sulfate 2.5 mg /3 mL (0.083 %) solution for nebulization 2.5 mg continuous nebulization UD PRN (Reason: Shortness Of Breath Or Wheezing) Rx Instructions: Every 4-6 hours cholecalciferol (vitamin D3) [Vitamin D3] 50 mcg (2,000 unit) tablet 50 mcg PO DAILY docusate sodium 100 mg capsule 100 mg PO QID PRN (Reason: contipation) levetiracetam [Keppra] 1,000 mg tablet 1,000 mg PO BID Qty: 60 0RF magnesium oxide 400 mg (241.3 mg magnesium) Tablet 400 mg PO BID Qty: 60 0RF sennosides [senna] 8.6 mg tablet 8.6 mg PO BID cetirizine 10 mg tablet 10 mg PO DAILY ondansetron HCl 8 mg tablet 8 mg PO Q8H PRN (Reason: Nausea) potassium chloride 10 mEq tablet,ER particles/crystals 10 meq PO BID fenofibrate 160 mg tablet 160 mg PO DAILY pantoprazole [Protonix] 40 mg tablet,delayed release (DR/EC) 40 mg PO DAILY Qty: 30 0RF promethazine 6.25 mg/5 mL syrup 6.25 mg PO TID PRN (Reason: nausea and vomiting) Qty: 120 0RF Rx Instructions: May make you dizzy or drowsy Discharge Orders: Discharge Order (Routine); Ordered 05/23/24 Ordered By: Remedios Lew Admission Data Admit Date/Time: 05/20/24 13:03 Attending Provider: Remedios Lew Admit Provider: Paolo Antony Primary Care Provider: Amarilys Hamilton Other Providers: Paolo Antony; Francesco Riddle Other Interventions: Discharge Summary Assessment (RN) Last Done: 05/22/24 11:09
[2024-05-23 11:28] VITALS: BP 120/73; PULSE 74; RESP 18; TEMP 97.3; O2SAT 100
== END 2024-05-23 12:40 | disposition home or self-care (01) | DRG 683 ==
LOC: ED 10:38 → SUATTDRO 13:03 → 2W 13:03

== ENCOUNTER 2024-05-27 16:12 | Inpatient (IN) ==
[2024-05-27] MEDS: SODIUM CHLORIDE 0.9% 1,000 ML IV ONE ×3 (16:43→20:14)
--- NOTE | 2024-05-27 16:44 | Emergency Department Note ---
Impression & Plan Nausea, vomiting, and diarrhea, Hypomagnesemia, JUAN J (acute kidney injury), Acute renal failure, Severe sepsis, Leukocytosis, Non-ST elevation IA (NSTEMI), Elevated lactic acid level, Acute dehydration ED Provider Note HISTORY OF PRESENT ILLNESS: Patient is a 64-year-old female presenting with nausea, vomiting and diarrhea. Patient reports has been feeling generally unwell for the last few days. She reportedly has been unable to get up and get around at home secondary to her symptoms and weakness. Her site reliability engineer called 911 because "she cannot take care of the patient anymore." Patient has a history of cancer. She is complaining of diffuse abdominal pain. Denies any fevers. Denies any chest pain or shortness of breath. Reports feeling generally unwell. ROS: as above PHYSICAL EXAM: Constitutional: Patient appears in no acute distress. Cachectic appearing HENT: Head: Normocephalic and atraumatic. Eyes: EOMI, PERRL Mouth/Throat: Mucous membranes dry. Dry, cracked lips Neck: Trachea midline. Neck supple. Cardiovascular: Tachycardic with regular rhythm. No murmurs, rubs or gallops. Intact distal pulses. Pulmonary/Chest: No respiratory distress. Breath sounds clear and equal bilaterally. No wheezes or rales. Abdominal: Abdomen soft, no rebound or guarding. Diffuse TTP Musculoskeletal: No edema, tenderness or deformity noted. Skin: Warm and dry. Psychiatric: Appropriate mood and affect for situation. Neurological: Alert and keenly responsive. CN II-XII grossly intact, moving all extremities equally and fully. MDM: - Vitals signs showed hypothermia, tachycardia and hypotension. - History obtained via patient. History as above. - Chronic conditions affecting care: HTN; HLD; lung adenocarcinoma - Differential diagnoses include, but are not limited to: Dehydration; electrolyte abnormality; viral syndrome; small bowel obstruction; intra- abdominal abscess - Order placed for continuous cardiac monitoring. At this time, monitor showed rate of 124 bpm with normal sinus rhythm, per my interpretation. - External medical records reviewed. Discharge summary dated 05/23/2024 was reviewed. Patient was admitted that time for acute kidney injury secondary to nausea and vomiting and abdominal pain. - EKG interpreted by myself showed normal sinus rhythm. Rate tachycardic at 127 bpm. QT 328. No acute ischemic changes. - Laboratory workup interpreted by myself showed leukocytosis (WBC 16.35) with neutrophil predominance; elevated INR (1.2); stable electrolytes; acute renal failure (Cr 4.08); elevated anion gap (29); elevated BUN (31); elevated lactate (4.3); hypomagnesemia (Mg 1.5); elevated troponin (31.1); normal lipase - CT head wo contrast negative for acute pathology - CT abdomen/pelvis wo contrast negative for acute pathology. Noted to have some enteritis. - Patient initially given 1L NS with minimal improvement in her heart rate or blood pressure. She was given a second 1 L normal saline bolus. Sepsis fluid volume resuscitation based on ideal body weight is 1772.7 mL. She started on normal saline at 125 cc an hour. However, she still not produced any urine in the emergency department. Attempts were made at placing a Bermudez catheter for strict I&O monitoring in the setting of an acute renal failure. She was initiated on IV Levophed to keep her maps above 65. - Empirically started patient on IV zosyn and vancomycin for antibiotic coverage. - 1g IV magnesium ordered for electrolyte replacement. - Discussion was had with top case assembler about patient's case and need for admission - Discussed case with Juan Elizabeth PA-C for ICU, given patient's levophed requirement. - Hospitalist, Dr. Noyola, consulted for admission - [facility] and [facility]. I have personally spent 67 minutes of critical care time in the direct management of this patient. This includes bedside care, interpretation of diagnostic studies, and testing, discussion with consultants, patient, and family members, and other required patient management activities. This 67 minutes is in excess of all separately billable procedures. ASSESSMENT AND PLAN: Diagnosis: Acute renal failure; acute dehydration; JUAN J; leukocytosis; severe sepsis; nausea, vomiting and diarrhea; hypomagnesemia; NSTEMI; elevated lactic acid level Plan: Admit Past Med/Surg History Problem List (Updated 05/27/24 @ 19:23 by Maribell Doll MD) Acute dehydration (Acute) Elevated lactic acid level (Acute) Non-ST elevation IA (NSTEMI) (Acute) Leukocytosis (Acute) Severe sepsis (Acute) Acute renal failure (Acute) JUAN J (acute kidney injury) (Acute) Hypomagnesemia (Acute) Nausea, vomiting, and diarrhea (Acute) Encounter for pre-operative examination Adenocarcinoma of left lung Skin lesions Esophagitis JUAN J (acute kidney injury) Prolonged QT interval Generalized weakness (Acute) Nausea & vomiting (Acute) Hypocalcemia (Acute) Acute hypokalemia (Acute) Hypomagnesemia (Acute) 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 Focal motor seizure B12 deficiency Dilated bile duct Hypomagnesemia Tachycardia Iron deficiency anemia Fatigue Frontal headache Alcohol use disorder Tobacco use disorder Seizure-like activity Muscle spasm Vitamin D deficiency Osteoarthritis Vasogenic brain edema Traumatic hematoma of forehead (Acute) Focal seizure (Acute) Medical History Anemia Muscle spasm Brain metastasis Right arm weakness Brain lesion Anxiety Allergic rhinitis Depression GERD (gastroesophageal reflux disease) COPD (chronic obstructive pulmonary disease) Hyperlipidemia Hypertension Surgical History H/O craniotomy 06/05/23 - History of surgery For right arm fracture S/P hysterectomy Family History Mother , age 69 of liver cancer Liver cancer Father , in his early 70s Myocardial infarction Temporary pacemaker Brother Myocardial infarction Sister Stroke Hypertension Daughter No problems noted. 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 How many Children do You have: 1 Feels Safe at Home: Hesitant to Answer Diet: regular caffeine: Yes (1 cup/day) during the past year weight has: remained stable Assistive Devices: Cane and Walker Allergies Allergies Allergy/AdvReac Type Severity Reaction Status Date / Time No Known Allergies Allergy Unverified 05/20/24 12:50 Home Meds Home Medications Medication Instructions Recorded Confirmed albuterol sulfate 2.5 mg/3 mL 2.5 mg continuous nebulization UD 06/02/23 05/20/24 (0.083 %) solution for nebulization PRN Shortness Of Breath Or Wheezing atorvastatin 80 mg tablet 80 mg PO DAILY 06/02/23 05/20/24 cholecalciferol (vitamin D3) 50 50 mcg PO DAILY 06/02/23 05/20/24 mcg (2,000 unit) tablet (Vitamin D3) hydroxyzine HCl 25 mg tablet 25 mg PO TID PRN Anxiety 06/02/23 05/20/24 mirtazapine 30 mg tablet 30 mg PO HS 06/02/23 05/20/24 tiotropium bromide 2.5 2 puff inhalation DAILY 06/02/23 05/20/24 mcg/actuation mist for inhalation (Spiriva Respimat) docusate sodium 100 mg capsule 100 mg PO QID PRN contipation 09/09/23 05/20/24 cetirizine 10 mg tablet 10 mg PO DAILY 05/20/24 05/20/24 fenofibrate 160 mg tablet 160 mg PO DAILY 05/20/24 05/20/24 ondansetron HCl 8 mg tablet 8 mg PO Q8H PRN Nausea 05/20/24 05/20/24 potassium chloride 10 mEq 10 meq PO BID 05/20/24 05/20/24 tablet,extended release(part/cryst) sennosides 8.6 mg tablet (senna) 8.6 mg PO BID 05/20/24 05/20/24 Previous Rx's Medication Instructions Recorded levetiracetam 1,000 mg tablet 1,000 mg PO BID #60 tabs 09/11/23 (Keppra) magnesium oxide 400 mg (241.3 mg 400 mg PO BID #60 tabs 09/11/23 magnesium) tablet pantoprazole 40 mg tablet,delayed 40 mg PO DAILY #30 tabs 05/13/24 release (Protonix) promethazine 6.25 mg/5 mL oral 6.25 mg (5 mL) PO TID PRN nausea 05/13/24 syrup and vomiting #120 mL Results & Data (ED) Vital Signs Vital Signs - 24 hr 05/27/24 16:48 05/27/24 17:18 05/27/24 18:22 Temperature 35.8 C L Temperature Source Axillary Pulse Rate 132 H 133 H Pulse Rate [Apical] 128 H Respiratory Rate 20 27 H Respiratory Effort / Characteristics Non-Labored Spontaneous Respiratory Depth Normal Blood Pressure Blood Pressure [Right Arm] 59/45 L Blood Pressure Mean Blood Pressure Mean [Right Arm] 49 Pulse Oximetry 94 92 Oxygen Delivery Method Room Air Nasal Cannula Oxygen Flow Rate 2 Sepsis Recent Fever Within 48 Hours No Sepsis New/Unexplained Change in Mental Status N/A Sepsis Action Taken by Nursing Physician Notified 05/27/24 19:00 05/27/24 19:24 05/27/24 19:26 Temperature 35.4 C L Temperature Source Temporal Artery Scan Pulse Rate Pulse Rate [Apical] 127 H 117 H Respiratory Rate 23 24 Respiratory Effort / Characteristics Respiratory Depth Blood Pressure Blood Pressure [Right Arm] 72/51 L 105/69 Blood Pressure Mean Blood Pressure Mean [Right Arm] 58 81 Pulse Oximetry 92 100 98 Oxygen Delivery Method Nasal Cannula Nasal Cannula Nasal Cannula Oxygen Flow Rate 2 2 2 Sepsis Recent Fever Within 48 Hours Sepsis New/Unexplained Change in Mental Status Sepsis Action Taken by Nursing 05/27/24 19:31 05/27/24 19:46 05/27/24 19:46 Temperature Temperature Source Pulse Rate 118 H 122 H 124 H Pulse Rate [Apical] Respiratory Rate 24 24 24 Respiratory Effort / Characteristics Respiratory Depth Blood Pressure 97/54 L 93/69 L 93/69 L Blood Pressure [Right Arm] Blood Pressure Mean 65 74 74 Blood Pressure Mean [Right Arm] Pulse Oximetry 99 98 99 Oxygen Delivery Method Oxygen Flow Rate Sepsis Recent Fever Within 48 Hours Sepsis New/Unexplained Change in Mental Status Sepsis Action Taken by Nursing 05/27/24 19:52 Temperature 37.0 C Temperature Source Pulse Rate 124 H Pulse Rate [Apical] Respiratory Rate 24 Respiratory Effort / Characteristics Respiratory Depth Blood Pressure 116/56 L Blood Pressure [Right Arm] Blood Pressure Mean 80 Blood Pressure Mean [Right Arm] Pulse Oximetry 95 Oxygen Delivery Method Nasal Cannula Oxygen Flow Rate 2 Sepsis Recent Fever Within 48 Hours Sepsis New/Unexplained Change in Mental Status Sepsis Action Taken by Nursing Laboratory Data 05/27/24 16:52 05/27/24 16:52 Lab Results 05/27/24 Range/Units 16:52 WBC 16.35 H (4.8-10.8) K/ul RBC 4.87 (4.20-5.40) M/uL Hgb 15.4 (12.0-16.0) g/dl Hct 46.8 (37.0-47.0) % MCV 96.1 (80.0-100.0) fL MCH 31.6 (25.0-34.0) pg MCHC 32.9 (32.0-36.0) g/dL RDW Std Deviation 44.7 (36.4-46.3) fL RDW Coeff of Micheal 12.6 (11.5-14.5) % Plt Count 466 H (130-400) K/uL MPV 9.8 (9.4-12.4) fL Immature Gran % (Auto) 0.5 % Neut % (Auto) 70.5 % Lymph % (Auto) 14.3 % Towns % (Auto) 13.9 % Eos % (Auto) 0.2 % Baso % (Auto) 0.6 % Neut # (Auto) 11.54 H (1.40-6.50) K/uL Lymph # (Auto) 2.33 (1.20-3.40) K/uL Towns # (Auto) 2.27 H (0.11-0.59) K/uL Eos # (Auto) 0.04 (0.00-0.50) K/uL Baso # (Auto) 0.09 (0.00-0.20) K/uL Immature Gran # (Auto) 0.08 (0.01-0.20) K/uL PT 12.5 H (9.0-12.0) Seconds INR 1.2 H (0.9-1.1) Sodium 142 (136-145) mmol/L Potassium 3.9 (3.5-5.1) mmol/L Chloride 99 (98-107) mmol/L Carbon Dioxide 14 L (21-32) mmol/L Anion Gap 29 H (3-11) BUN 31 H (6-23) mg/dl Creatinine 4.08 H (0.6-1.2) mg/dl Est Cr Clr Drug Dosing 9.7 ml/min eGFR 11.64 BUN/Creatinine Ratio 7.6 L (10-20) Glucose 116 H (70-99(Fasting)) mg/dl Lactate 4.3 H* (0.4-2.0) mmol/L Calcium 11.6 H (8.6-10.3) mg/dl Magnesium 1.5 L (1.7-2.4) mg/dl Total Bilirubin 0.5 (0.2-1.0) mg/dl AST 33 (13-39) U/L ALT 33 (7-52) U/L Alkaline Phosphatase 36 (34-104) U/L Troponin I High Sens 31.1 H (0-14) pg/ml Total Protein 8.1 (6.0-8.3) gm/dl Albumin 4.7 (3.4-5.0) gm/dl Globulin 3.4 (2.5-4.0) gm/dl Albumin/Globulin Ratio 1.4 (0.9-2) Lipase 25 (11-82) U/L Administered Medications Sodium Chloride (Nss) 500 mls @ 125 mls/hr IV .Q4H GIBSON Stop: 05/27/24 21:29 Last Infusion: 05/27/24 19:35 Dose: 125 mls/hr Documented By: Infusion: 05/27/24 18:54 Dose: 0 mls/hr Documented By: Admin: 05/27/24 17:23 Dose: 125 mls/hr Documented By: SANDEE Norepinephrine Bitartrate (Levophed/D5w) 4 mg in 250 mls @ 8.288 mls/hr IV .Q24H GIBSON; Protocol Stop: 06/26/24 18:29 Last Admin: 05/27/24 18:57 Dose: 0.05 mcg/kg/min, 8.3 mls/hr Documented By: SANDEE Co-signed By: CHUY Magnesium Sulfate/Dextrose (Magnesium Sulfate / D5w) 1 gm in 100 mls @ 100 mls/hr IV NOW STA Stop: 05/27/24 20:22 Last Admin: 05/27/24 20:11 Dose: 100 mls/hr Documented By: CHUY Linezolid (Zyvox) 600 mg in 300 mls @ 300 mls/hr IV NOW STA Stop: 05/27/24 20:44 Last Admin: 05/27/24 19:57 Dose: 300 mls/hr Documented By: CHUY Sodium Chloride (Nss) 1,000 mls @ 999 mls/hr IV .Q1H1M ONE Stop: 05/27/24 21:02 Last Admin: 05/27/24 20:14 Dose: 999 mls/hr Documented By: CHUY Discontinued Medications Sodium Chloride (Nss) 1,000 mls @ 999 mls/hr IV .Q1H1M ONE Stop: 05/27/24 17:39 Last Infusion: 05/27/24 17:23 Dose: Infused Documented By: Admin: 05/27/24 16:43 Dose: 999 mls/hr Documented By: SANDEE Piperacillin Sod/Tazobactam Sod (Zosyn) 4.5 gm in 100 mls @ 200 mls/hr IV NOW ONE; Protocol Stop: 05/27/24 17:54 Last Infusion: 05/27/24 18:10 Dose: Infused Documented By: NRGrecia Admin: 05/27/24 17:35 Dose: 200 mls/hr Documented By: SANDEE Vancomycin HCl 1,000 mg/ (Sodium Chloride) 520 mls @ 200 mls/hr IV NOW ONE Stop: 05/27/24 20:00 Last Infusion: 05/27/24 19:36 Dose: 0 mls/hr Documented By: Admin: 05/27/24 19:22 Dose: 200 mls/hr Documented By: CHUY Sodium Chloride (Nss) 1,000 mls @ 999 mls/hr IV .Q1H1M ONE Stop: 05/27/24 19:24 Last Admin: 05/27/24 18:54 Dose: 999 mls/hr Documented By: SANDEE Imaging Data Radiologist's Impression: Abdomen/Pelvis CT 05/27/24 17:24 Exam(s): CT ABDOMEN + PELVIS Without Contrast EXAM: CT Abdomen and Pelvis Without Intravenous Contrast CLINICAL HISTORY: Reason for exam: abd pain; N/V/D; hx of cancer. TECHNIQUE: Axial computed tomography images of the abdomen and pelvis without intravenous contrast. CTDI is 45.3 mGy and DLP is 885.62 mGy-cm. Automated exposure control was utilized for the study. A dose lowering technique was utilized adhering to the principles of ALARA. COMPARISON: No relevant prior studies available. FINDINGS: Lung bases: Unremarkable. No mass. No consolidation. Mediastinum: There is a 1 cm circumferential thickening of the wall of the distal esophagus suggesting esophagitis. No hiatal hernia. ABDOMEN: Liver: Unremarkable. Gallbladder and bile ducts: Unremarkable. No calcified stones. No ductal dilation. Pancreas: Unremarkable. No ductal dilation. Spleen: Unremarkable. No splenomegaly. Adrenals: Unremarkable. No mass. Kidneys and ureters: There is a 1.7 cm simple cyst in the left kidney. No follow-up is required. No hydronephrosis or ureterolithiasis is seen involving either kidney. Stomach and bowel: See below. PELVIS: Appendix: The appendix is normal. There are multiple scattered gas fluid levels throughout distended but nondilated loops of large and small bowel suggesting ileus and/or enteritis. No focal bowel wall thickening or inflammation is seen. No pneumoperitoneum, free fluid, or abscess. Bladder: Unremarkable. No stones. Reproductive: Unremarkable as visualized. ABDOMEN and PELVIS: Intraperitoneal space: The uterus is absent. No free fluid in the pelvis. Bones/joints: Mild multilevel degenerative changes throughout the spine. No acute fracture or subluxation. Soft tissues: Unremarkable. Vasculature: The abdominal aorta is mildly calcified but nondilated. Lymph nodes: Unremarkable. No enlarged lymph nodes. IMPRESSION: 1. The appendix is normal. There are multiple scattered gas fluid levels throughout distended but nondilated loops of large and small bowel suggesting ileus and/or enteritis. No focal bowel wall thickening or inflammation is seen. No pneumoperitoneum, free fluid, or abscess. 2. No hydronephrosis or ureterolithiasis is seen involving either kidney. 3. There is a 1 cm circumferential thickening of the wall of the distal esophagus suggesting esophagitis. No hiatal hernia. Electronically signed by: Peter Castaneda MD 05/27/24 20:[address] 05/27/24 17:49 CT head/brain wo con CLINICAL HISTORY: vomiting; hx of metastatic cancer Technique: Contiguous axial CT images of the head were acquired from the base of the skull to the vertex without intravenous contrast administration. Images were viewed in brain, subdural and bone windows. Automated dose lowering techniques and/or adjustment according to patient size were utilized for this exam. Comparison: Comparison is made to CT head 05/20/2024 Findings: The ventricles, basal cisterns, and cerebral sulci are normal. There is no acute intracranial hemorrhage or evidence of acute territorial infarction. Neither mass effect, shift of the midline structures, nor abnormal extra-axial fluid collections are shown. Encephalomalacia in the left frontal lobe is again seen. Imaged portions of the paranasal sinuses and mastoid air cells are clear. The orbits appear normal. Postsurgical changes of frontal craniectomy are seen. Impression: No acute abnormalities. No evidence of vasogenic edema to suggest metastasis. Post surgical changes in the left frontal lobe. ACT 112: Negative or not required by law. Electronically signed by: Byron Jain M.D. 05/27/2024 6:50 PM Discharge Plan Visit Data Chief Complaint: Illness Stated Complaint: NOT EATING OR DRINKING ED Provider: Maribell Doll Discharge Problem: Nausea, vomiting, and diarrhea, Hypomagnesemia, JUAN J (acute kidney injury), Acute renal failure, Severe sepsis, Leukocytosis, Non-ST elevation IA (NSTEMI), Elevated lactic acid level, Acute dehydration Forms Stand Alone Forms: My [facility] [employer] Prescriptions Prescriptions: No Action atorvastatin 80 mg tablet 80 mg PO DAILY mirtazapine 30 mg tablet 30 mg PO HS hydroxyzine HCl 25 mg tablet 25 mg PO TID PRN (Reason: Anxiety) Spiriva Respimat 2.5 mcg/actuation mist 2 puff INHALATION DAILY albuterol sulfate 2.5 mg /3 mL (0.083 %) solution for nebulization 2.5 mg continuous nebulization UD PRN (Reason: Shortness Of Breath Or Wheezing) Rx Instructions: Every 4-6 hours cholecalciferol (vitamin D3) [Vitamin D3] 50 mcg (2,000 unit) tablet 50 mcg PO DAILY docusate sodium 100 mg capsule 100 mg PO QID PRN (Reason: contipation) levetiracetam [Keppra] 1,000 mg tablet 1,000 mg PO BID Qty: 60 0RF magnesium oxide 400 mg (241.3 mg magnesium) Tablet 400 mg PO BID Qty: 60 0RF sennosides [senna] 8.6 mg tablet 8.6 mg PO BID cetirizine 10 mg tablet 10 mg PO DAILY ondansetron HCl 8 mg tablet 8 mg PO Q8H PRN (Reason: Nausea) potassium chloride 10 mEq tablet,ER particles/crystals 10 meq PO BID fenofibrate 160 mg tablet 160 mg PO DAILY pantoprazole [Protonix] 40 mg tablet,delayed release (DR/EC) 40 mg PO DAILY Qty: 30 0RF promethazine 6.25 mg/5 mL syrup 6.25 mg PO TID PRN (Reason: nausea and vomiting) Qty: 120 0RF Rx Instructions: May make you dizzy or drowsy Referrals Referrals: Amarilys Hamilton CRNP [Primary Care Provider] -
[2024-05-27 17:23] LABS: Basophils # (auto) 0.09 K/uL (0.00-0.20); Basophils % (auto) 0.6 %; Eosinophils # (auto) 0.04 K/uL (0.00-0.50); Eosinophils % (auto) 0.2 %; Hematocrit (blood only) 46.8 % (37.0-47.0); Hemoglobin 15.4 g/dl (12.0-16.0); Immature Granulocytes # (auto) 0.08 K/uL (0.01-0.20); Immature Granulocytes % (auto) 0.5 %; Lymphocytes # (auto) 2.33 K/uL (1.20-3.40); Lymphocytes % (auto) 14.3 %; Mean Corpuscular Hemoglobin 31.6 pg (25.0-34.0); Mean Corpuscular Hgb Conc 32.9 g/dL (32.0-36.0); Mean Corpuscular Volume 96.1 fL (80.0-100.0); Mean Platelet Volume 9.8 fL (9.4-12.4); Monocytes # (auto) 2.27 K/uL (0.11-0.59); Monocytes % (auto) 13.9 %; Neutrophils # (auto) 11.54 K/uL (1.40-6.50); Neutrophils % (auto) 70.5 %; Platelet Count 466 K/uL (130-400); RDW Coefficient of Variation 12.6 % (11.5-14.5); RDW Standard Deviation 44.7 fL (36.4-46.3); Red Blood Count 4.87 M/uL (4.20-5.40); White Blood Count 16.35 K/ul (4.8-10.8)
[2024-05-27] MEDS: SODIUM CHLORIDE 0.9% 500 ML IV SCH (17:23)
[2024-05-27] MEDS ORDERED: VANCOMYCIN CONSULT ACTIVE PRN (17:25)
[2024-05-27 17:32] LABS: Albumin Globulin Ratio 1.4 (0.9-2); Albumin Level 4.7 gm/dl (3.4-5.0); BUN Creatinine Ratio 7.6 (10-20); Bilirubin,Total 0.5 mg/dl (0.2-1.0); Calcium 11.6 mg/dl (8.6-10.3); Creatinine Clr Calc Pharmacy 9.7 ml/min; Globulin 3.4 gm/dl (2.5-4.0); Magnesium 1.5 mg/dl (1.7-2.4); Potassium 3.9 mmol/L (3.5-5.1); Total Protein 8.1 gm/dl (6.0-8.3)
[2024-05-27] MEDS: PIPERACILLIN/TAZOBACTAM 4.5 GM/100 ML BAG IV ONE (17:35)
[2024-05-27 17:39] LABS: Troponin I High Sensitivity 31.1 pg/ml (0-14)
[2024-05-27 17:46] LABS: INR 1.2 (0.9-1.1); Prothrombin Time 12.5 Seconds (9.0-12.0)
[2024-05-27] MEDS ORDERED: STAT IV Infusion **Titration per Protocol STA (18:24)
[2024-05-27] MEDS: VANCOMYCIN HCL 1,000 MG in SODIUM CHLORIDE 0.9% 500 ML IV ONE (18:52)
--- NOTE | 2024-05-27 18:52 | CT Scan Report ---
CT head/brain wo con CLINICAL HISTORY: vomiting; hx of metastatic cancer Technique: Contiguous axial CT images of the head were acquired from the base of the skull to the yvonne ben without intravenous contrast administration. Images were viewed in brain, subdural and [facility]. Automated dose lowering techniques and/or adjustment according to patient size were utilized for this exam. Comparison: Comparison is made to CT head 05/20/2024 Findings: The ventricles, basal cisterns, and cerebral sulci are normal. There is no acute intracranial hemorrh age or evidence of acute territorial infarction. Neither mass effect, shift of the midline structures , nor abnormal extra-axial fluid collections are shown. Encephalomalacia in the left frontal lobe is again seen. Imaged portions of the paranasal sinuses and mastoid air cells are clear. The orbits appear normal. Postsurgical changes of frontal craniectomy are seen. Impression: No acute abnormalities. No evidence of vasogenic edema to suggest metastasis. Post surgical changes i n the left frontal lobe. ACT 112: Negative or not required by law. Electronically signed by: Byron Jain M.D. 05/27/2024 6:50 PM
[2024-05-27] MEDS: NOREPINEPHRINE/D5W 4 MG/250 ML PLCT IV SCH (18:57)
[2024-05-27] MEDS: LINEZOLID 600 MG/300 ML BAG IV STA (19:57)
--- NOTE | 2024-05-27 20:05 | CT Scan Report ---
Exam(s): CT ABDOMEN + PELVIS Without Contrast EXAM: CT Abdomen and Pelvis Without Intravenous Contrast CLINICAL HISTORY: Reason for exam: abd pain; N/V/D; hx of cancer. TECHNIQUE: Axial computed tomography images of the abdomen and pelvis without intravenous contrast. CTDI is 45.3 mGy and DLP is 885.62 mGy-cm. Automated exposure control was utilized for the study. A dose lowering technique was utilized adhering to the principles of ALARA. COMPARISON: No relevant prior studies available. FINDINGS: Lung bases: Unremarkable. No mass. No consolidation. Mediastinum: There is a 1 cm circumferential thickening of the wall of the distal esophagus suggesting esophagitis. No hiatal hernia. ABDOMEN: Liver: Unremarkable. Gallbladder and bile ducts: Unremarkable. No calcified stones. No ductal dilation. Pancreas: Unremarkable. No ductal dilation. Spleen: Unremarkable. No splenomegaly. Adrenals: Unremarkable. No mass. Kidneys and ureters: There is a 1.7 cm simple cyst in the left kidney. No follow-up is required. No hydronephrosis or ureterolithiasis is seen involving either kidney. Stomach and bowel: See below. PELVIS: Appendix: The appendix is normal. There are multiple scattered gas fluid levels throughout distended but nondilated loops of large and small bowel suggesting ileus and/or enteritis. No focal bowel wall thickening or inflammation is seen. No pneumoperitoneum, free fluid, or abscess. Bladder: Unremarkable. No stones. Reproductive: Unremarkable as visualized. ABDOMEN and PELVIS: Intraperitoneal space: The uterus is absent. No free fluid in the pelvis. Bones/joints: Mild multilevel degenerative changes throughout the spine. No acute fracture or subluxation. Soft tissues: Unremarkable. Vasculature: The abdominal aorta is mildly calcified but nondilated. Lymph nodes: Unremarkable. No enlarged lymph nodes. IMPRESSION: 1. The appendix is normal. There are multiple scattered gas fluid levels throughout distended but nondilated loops of large and small bowel suggesting ileus and/or enteritis. No focal bowel wall thickening or inflammation is seen. No pneumoperitoneum, free fluid, or abscess. 2. No hydronephrosis or ureterolithiasis is seen involving either kidney. 3. There is a 1 cm circumferential thickening of the wall of the distal esophagus suggesting esophagitis. No hiatal hernia. Electronically signed by: Peter Castaneda MD 05/27/24 20:04 PM
[2024-05-27] MEDS: MAGNESIUM SULFATE / D5W 1 GM/100 ML BAG IV STA (20:11)
[2024-05-27 20:24] LABS: Adenovirus PCR Not Detected (NotDetected); Bordetella parapertussis PCR Not Detected (NotDetected); Bordetella pertussis PCR Not Detected (NotDetected); Chlamydia pneumoniae PCR Not Detected (NotDetected); Coronavirus 229E PCR Not Detected (NotDetected); Coronavirus CoV-2 (COVID19)PCR Not Detected (NotDetected); Coronavirus HKU1 PCR Not Detected (NotDetected); Coronavirus NL63 PCR Not Detected (NotDetected); Coronavirus OC43PCR Not Detected (NotDetected); Human Metapneumovirus PCR Not Detected (NotDetected); Influenza A PCR Not Detected (NotDetected); Influenza B PCR Not Detected (NotDetected); Mycoplasma pneumoniae PCR Not Detected (NotDetected); Parainfluenza Virus 1 PCR Not Detected (NotDetected); Parainfluenza Virus 2 PCR Not Detected (NotDetected); Parainfluenza Virus 3 PCR Not Detected (NotDetected); Parainfluenza Virus 4 PCR Not Detected (NotDetected); Respiratory Syncytial VirusPCR Not Detected (NotDetected); Rhinovirus/Enterovirus PCR Not Detected (NotDetected)
--- NOTE | 2024-05-27 21:05 | Critical Care Consultation ---
Date of Consultation May 27, 2024 Assessment & Plan (1) Septic shock: Reason Critically Ill: 64-year-old female with past medical history of metastatic adenocarcinoma currently undergoing treatment with Keytruda presents to the ICU after 3 days of nausea and vomiting, now hypotensive requiring vasopr essor support with possible sepsis. Neuro - [facility]: Positive History of left frontal lobe craniectomy. According to Latrice take your patient confused at baseline but able to do some basic ADLs on her own. - She did undergo CT head which was negative for acute intracranial findings Seizure disordercontinue Keppra Cardiac - Shocklikely sepsis, With hypovolemia likely also playing a role in the setting of 3 days of vomiting/diarrhea See ID for treatment of sepsis below - Will continue with aggressive fluid resuscitation - Central venous catheter inserted. Titrate Levophed drip to maintain MAP greater than 65 - Follow-up TTE. Previous TTE with grade 1 diastolic dysfunction and normal EF -Random cortisol low, continue with stress dose steroids - Hold antihypertensives - Continuous monitoring on telemetry Respiratory - COPDstable. Lungs clear to auscultation and ABG without Hypercapnia or respiratory acidosis - DuoNebs as needed - Continuous monitoring on pulse ox. Currently maintaining oxygen saturation on room air GI - SBO/ileusCT abdomen and pelvis with dilated small bowel loops consistent with ileus. Likely source of abdominal pain. - No active vomiting at this time. Will hold off on NG tube for now and keep n.p.o. - Repeat KUB in a.m. - Consider surgical consult if worsening Gastritiscontinue PPI RENAL/LYTES - Acute renal failurepatient with elevated creatinine of 4, and metabolic acidosis with little urine output following Bermudez insertion - Likely prerenal considering severe dehydration/hypovolemia with hypotension with sepsis - Continue with fluid resuscitation and maintain MAP greater than 65 to ensure renal perfusion - Avoid nephrotoxins and renally adjust medications - No significant electrolyte abnormalities at this time. Will follow BMPs closely -Consider nephrology consult - Foleystrict I's and O's ENDO - No history of diabetes or thyroid disease. ICU hyperglycemic protocol HEME - H&H stable, monitor routine CBC ID - Sepsisunsure of etiology at this time but suspect possible colitis with diarrhea. Patient also underwent treatment for recent UTI - Receive Zosyn and vancomycin in the emergency department - BioFire negative, C. difficile negative, nasal MRSA negative - Will order blood cultures and urinalysis/Urine culture - Continue with empiric cefepime/Flagyl for now LINES/IV ACCESS - Peripheral IVs, CVC right IJ inserted 05/27 DVT PROPHYLAXIS - SCDs, I have personally spent 55 minutes of critical care time in the direct management of this patient. This is a life/limb threatening event. This includes time spent evaluating patient, direct bedside care, chart review, placing orders, interpretation of diagnostic studies, discussion with consultants, patient, and family members, as well as other required patient management activities. This time is exclusive of all separately billable procedures, and teaching time and separate from and in addition to any other critical care service time. Thank you for allowing us to participate in the care of this patient. Please refer to my attending physician's documentation for any further recommendations. (2) Elevated lactic acid level: (3) Non-ST elevation OK (NSTEMI): (4) Acute renal failure: (5) Adenocarcinoma of left lung: (6) Esophagitis: History of Present Illness Attending Physician: Miguel Noyola MD History of Present Illness Patient is a 64-year-old female with past medical history significant for Gerd, COPD, seizure disorder, HTN, HLD, and lung adenocarcinoma with left frontal lobe metastasis and underwent resection of the left frontal lobe in August 2022. She is currently undergoing treatment with Keytruda. She was recently admitted for UTI and esophagitis where she underwent EGD, And was found to have severe ulcerative esophagitisShe was discharged from the hospital 4 days ago on 05/23. This evening patient presented to the emergency department with 3 days of nausea, vomiting, and diarrhea with increased weakness and no longer to get up around the home. Her adjunct faculty instructor called 911 claiming that she could not take care of her at this time. On arrival to the emergency department patient was found to be hypotensive, and lab work revealed significant JUAN J with creatinine of 4 and metabolic acidosis with elevated lactate. She was given 2 L crystalloid bolus and started on broad-spectrum antibiotics. Patient remained hypotensive following fluid bolus and was started on vasopressor support with Levophed. She is now being transferred to the ICU for further management at this time. Allergies Allergy/AdvReac Type Severity Reaction Status Date / Time No Known Allergies Allergy Unverified 05/20/24 12:50 Home Medications Medication Instructions Recorded Confirmed Type albuterol sulfate 2.5 mg/3 mL 2.5 mg continuous nebulization UD 06/02/23 05/20/24 History (0.083 %) solution for nebulization PRN Shortness Of Breath Or Wheezing atorvastatin 80 mg tablet 80 mg PO DAILY 06/02/23 05/20/24 History cholecalciferol (vitamin D3) 50 50 mcg PO DAILY 06/02/23 05/20/24 History mcg (2,000 unit) tablet (Vitamin D3) hydroxyzine HCl 25 mg tablet 25 mg PO TID PRN Anxiety 06/02/23 05/20/24 History mirtazapine 30 mg tablet 30 mg PO HS 06/02/23 05/20/24 History tiotropium bromide 2.5 2 puff inhalation DAILY 06/02/23 05/20/24 History mcg/actuation mist for inhalation (Spiriva Respimat) docusate sodium 100 mg capsule 100 mg PO QID PRN contipation 09/09/23 05/20/24 History levetiracetam 1,000 mg tablet 1,000 mg PO BID #60 tabs 09/11/23 05/20/24 Rx (Keppra) magnesium oxide 400 mg (241.3 mg 400 mg PO BID #60 tabs 09/11/23 05/20/24 Rx magnesium) tablet pantoprazole 40 mg tablet,delayed 40 mg PO DAILY #30 tabs 05/13/24 05/20/24 Rx release (Protonix) promethazine 6.25 mg/5 mL oral 6.25 mg (5 mL) PO TID PRN nausea 05/13/24 05/20/24 Rx syrup and vomiting #120 mL cetirizine 10 mg tablet 10 mg PO DAILY 05/20/24 05/20/24 History fenofibrate 160 mg tablet 160 mg PO DAILY 05/20/24 05/20/24 History ondansetron HCl 8 mg tablet 8 mg PO Q8H PRN Nausea 05/20/24 05/20/24 History potassium chloride 10 mEq 10 meq PO BID 05/20/24 05/20/24 History tablet,extended release(part/cryst) sennosides 8.6 mg tablet (senna) 8.6 mg PO BID 05/20/24 05/20/24 History Patient History Medical History Anemia Muscle spasm Brain metastasis Right arm weakness Brain lesion Anxiety Allergic rhinitis Depression GERD (gastroesophageal reflux disease) COPD (chronic obstructive pulmonary disease) Hyperlipidemia Hypertension Surgical History H/O craniotomy 06/05/23 - History of surgery For right arm fracture S/P hysterectomy Family History Mother , age 69 of liver cancer Liver cancer Father , in his early 70s Myocardial infarction Temporary pacemaker Brother Myocardial infarction Sister Stroke Hypertension Daughter No problems noted. 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 [employer] How many Children do You have: 1 Other Information That Helps Us Care for You: No Feels Safe at Home: Yes Safety Concerns: Feels Safe At This Time Diet: regular caffeine: Yes (1 cup/day) during the past year weight has: remained stable Assistive Devices: Cane and Walker Review of Systems Review of Systems: Unobtainable due to cognitive status Physical Exam Constitutional: + frail appearing; no acute distress Eyes: PERRL, conjunctivae normal, anicteric sclerae ENMT: external ear and nose normal, oropharynx normal Neck: trachea midline, no thyromegaly Respiratory: normal respiratory effort, lungs clear to auscultation Cardiovascular: Rate/Rhythm: + tachycardic Heart Sounds: normal S1 and n ormal S2; no murmur Extremities: no edema Gastrointestinal (Abdomen): Abdomen soft, tender with palpation generalized in all 4 quadrants. Bowel sounds present all 4 quadrants Musculoskeletal: no cyanosis or clubbing, extremities motor strength 5/5 Skin: no rashes, warm and dry Neurologic: PERRL, EOMI, accommodation nl, no face palsy, no dysarthria Psychiatric: Orientation: oriented to person; + not oriented to place and + not oriented to time Genitourinary: Indwelling Bermudez catheter present, urine concentrated dark yellow Results & Data Results & Data Vital Signs (Past 12 Hours) Vital Signs Temp Pulse Pulse Resp BP BP Pulse Ox 05/27/24 20:27 120 H 22 94/67 L 90 05/27/24 20:13 121 H 24 96/58 L 99 05/27/24 20:07 126 H 24 104/57 L 98 05/27/24 20:00 123 H 24 126/65 98 05/27/24 19:52 37.0 C 124 H 24 116/56 L 95 05/27/24 19:46 124 H 24 93/69 L 99 05/27/24 19:46 122 H 24 93/69 L 98 05/27/24 19:31 118 H 24 97/54 L 99 05/27/24 19:26 98 05/27/24 19:24 35.4 C L 117 H 24 105/69 100 05/27/24 19:00 127 H 23 72/51 L 92 05/27/24 18:22 128 H 27 H 59/45 L 92 05/27/24 17:18 35.8 C L 133 H 20 94 05/27/24 16:48 132 H O2 Del Method O2 Flow Rate 05/27/24 20:27 Nasal Cannula 2 05/27/24 20:13 05/27/24 20:07 05/27/24 20:00 05/27/24 19:52 Nasal Cannula 2 05/27/24 19:46 05/27/24 19:46 05/27/24 19:31 05/27/24 19:26 Nasal Cannula 2 05/27/24 19:24 Nasal Cannula 2 05/27/24 19:00 Nasal Cannula 2 05/27/24 18:22 Nasal Cannula 2 05/27/24 17:18 Room Air 05/27/24 16:48 Diagnostic Findings Exam(s): CT ABDOMEN + PELVIS Without Contrast EXAM: CT Abdomen and Pelvis Without Intravenous Contrast CLINICAL HISTORY: Reason for exam: abd pain; N/V/D; hx of cancer. TECHNIQUE: Axial computed tomography images of the abdomen and pelvis without intravenous contrast. CTDI is 45.3 mGy and DLP is 885.62 mGy-cm. Automated exposure control was utilized for the study. A dose lowering technique was utilized adhering to the principles of ALARA. COMPARISON: No relevant prior studies available. FINDINGS: Lung bases: Unremarkable. No mass. No consolidation. Mediastinum: There is a 1 cm circumferential thickening of the wall of the distal esophagus suggesting esophagitis. No hiatal hernia. ABDOMEN: Liver: Unremarkable. Gallbladder and bile ducts: Unremarkable. No calcified stones. No ductal dilation. Pancreas: Unremarkable. No ductal dilation. Spleen: Unremarkable. No splenomegaly. Adrenals: Unremarkable. No mass. Kidneys and ureters: There is a 1.7 cm simple cyst in the left kidney. No follow-up is required. No hydronephrosis or ureterolithiasis is seen involving either kidney. Stomach and bowel: See below. PELVIS: Appendix: The appendix is normal. There are multiple scattered gas fluid levels throughout distended but nondilated loops of large and small bowel suggesting ileus and/or enteritis. No focal bowel wall thickening or inflammation is seen. No pneumoperitoneum, free fluid, or abscess. Bladder: Unremarkable. No stones. Reproductive: Unremarkable as visualized. ABDOMEN and PELVIS: Intraperitoneal space: The uterus is absent. No free fluid in the pelvis. Bones/joints: Mild multilevel degenerative changes throughout the spine. No acute fracture or subluxation. Soft tissues: Unremarkable. Vasculature: The abdominal aorta is mildly calcified but nondilated. Lymph nodes: Unremarkable. No enlarged lymph nodes. IMPRESSION: 1. The appendix is normal. There are multiple scattered gas fluid levels throughout distended but nondilated loops of large and small bowel suggesting ileus and/or enteritis. No focal bowel wall thickening or inflammation is seen. No pneumoperitoneum, free fluid, or abscess. 2. No hydronephrosis or ureterolithiasis is seen involving either kidney. 3. There is a 1 cm circumferential thickening of the wall of the distal esophagus suggesting esophagitis. No hiatal hernia. Electronically signed by: Peter Castaneda MD 05/27/24 20:04 PM Coding Level of Care Code 12150 CRITICAL CARE 1ST 30-74M Diagnoses Septic shock A41.9; R65.21 Elevated lactic acid level R79.89 Non-ST elevation OK (NSTEMI) I21.4 Acute renal failure N17.9 Adenocarcinoma of left lung C34.92 Esophagitis K20.90
[2024-05-27] MEDS ORDERED: ALBUT/IPRATROP 3MG/0.5MG NEB 3 ML VIAL NEB PRN (21:06)
[2024-05-27] MEDS ORDERED: ONDANSETRON INJ 2 MG/ML 2 ML VIAL IV PRN (21:06)
[2024-05-27] MEDS: PLASMA-LYTE A 1,000 ML IV ONE (21:29)
[2024-05-27] MEDS: MAGNESIUM SULFATE / D5W 1 GM/100 ML BAG IV SCH (21:40)
[2024-05-27] MEDS: PANTOprazole 40 MG/10 ML SYR IV SCH (21:41)
[2024-05-27 21:44] LABS: iSTAT Arterial Blood Gas HCO3 13 meg/L (19-24); iSTAT Arterial Blood Gas pCO2 30 mmHg (35-46); iSTAT Arterial Blood Gas pH 7.24 (7.35-7.45); iSTAT Arterial Blood Gas pO2 116 mmHg (80-95); iSTAT Carbon Dioxide 14 mmol/L (24-31); iSTAT Hematocrit 48 % (37-47); iSTAT Hemoglobin 16.3 g/dl (12.0-16.0); iSTAT Potassium 3.9 mmol/L (3.3-5.0); iSTAT Sodium 141 mmol/L (135-144)
--- NOTE | 2024-05-27 22:09 | XRay Report ---
SINGLE VIEW CHEST CLINICAL HISTORY: Sepsis FINDINGS: An AP, portable, upright chest radiograph is compared to study dated 05/20/2024 and correla erna with chest CT dated 06/01/2023. The cardiomediastinal silhouette is unremarkable. Emphysema and c hronic interstitial thickening is similar to previous. There is mild bibasilar scarring/atelectasis. No airspace consolidation or pleural effusion is identified. No pneumothorax is seen. The skeletal st ructures are osteopenic. The bony thorax is grossly intact. IMPRESSION: Emphysematous change with no active disease in the chest. ACT 112: Negative or not required by law. Electronically signed by: Da Lucia M.D. 05/27/2024 10:08 PM
[2024-05-27 22:25] LABS: Appearance Urine Turbid (Clear); Bacteria Urine Automated 2+ (None Seen); Bilirubin Urine Negative (Negative); Blood Urine 2+ (Negative); Calcium Oxalate Crystals Urine Present (None Prsent); Cast Urine Automated >20 /lpf (0-2); Color Urine Yellow; Epithelial Cell Urine Auto >20 /hpf (0-2); Glucose Urine UA Trace (Negative); Ketones Urine 1+ (Negative); Leukocyte Esterase Urine Trace (Negative); Nitrite Urine Negative (Negative); Protein Urine 3+ (Negative); RBC Urine Automated >20 /hpf (0-2); Urobilinogen Urine Negative (Negative); pH Urine 5.5 (4.5-7.5)
[2024-05-27] MEDS: CEFEPIME 1000MG 1,000 MG/10 ML SYR IV SCH (22:58)
[2024-05-27] MEDS: HEPARIN SOD 5,000 UNIT/0.5 ML VIAL SQ SCH (22:59)
[2024-05-27] MEDS: levETIRAcetam IV 1,000 MG in SODIUM CHLORIDE 0.9% 100 ML IV SCH (22:59)
[2024-05-27] MEDS: metroNIDAZOLE 500 MG/100 ML BAG IV SCH (22:59)
--- NOTE | 2024-05-27 23:40 | Procedure Note ---
Procedure Note Date of Service May 27, 2024 INTERNAL JUGULAR CENTRAL LINE PROCEDURE NOTE: Procedure: Internal Jugular Central Line Placement Attending: Dr. Louis Provider: LUCHO Casiano Indication: Central Drug Administration, Poor Venous Access, Multiple Lab Draws Necessary, etc. Anesthesia: Lidocaine 1% Line placed emergently in the setting of septic shock with confused/encephalopathic patient requiring vasopressor support. A time-out was completed verifying correct patient, procedure, site, positioning, and implants(s) or special equipment if applicable. Patient's Right Neck was cleansed and draped in the typical sterile fashion using Chloraprep. The Internal Jugular Vein and Carotid Artery were identified using ultrasound. The superficial tissue was anesthetized using 3 mL of 1% lidocaine without epinephrine under direct visualization with the ultrasound. After adequate anesthetization was achieved, the Internal Jugular vein was cannulated under direct ultrasound guidance using an introducer needle on a syringe. Good venous blood return was maintained prior to removal of syringe from introducer needle. Using Seldinger Technique, a guide wire was advanced through the introducer needle without resistance. The introducer needle was removed and ultrasound images were obtained of the guide wire within the Internal Jugular Vein and saved to the patient's medical record. A small incision was made in penetrating fashion at the guide wire insertion site utilizing an 11 blade scalpel. The dilator was advanced to the vessel without resistance. The dilator was exchanged for the triple lumen catheter which was advanced into the vessel without resistance. The guide wire was removed intact from the catheter without issue. Claves were placed on each catheter tip with confirmation of good blood flow from each lumen. Each port was easily flushed with sterile saline. The catheter was placed at 16 cm and sutured in place. BioPatch was applied to the catheter and a sterile Tegaderm dressing was applied over the catheter with careful attention to sterility. Patient tolerated procedure well. No immediate complications were met. Post procedure x-ray was completed, placement was appropriate and no pneumothorax was noted. Procedural Ultrasound Guidance: Procedure Date: 05/27/2024 Indication: Central venous catheter insertion Attending: Dr. Louis Provider: LUCHO Casiano Artery AND Vein visualized: Yes Compressible Vein: Yes Guidewire or Short Catheter seen in vein prior to dilation: yes Line confirmed in Vein with ultrasound: yes [facility] Procedure Codes (Charges) Tubes, Drains, and Vasc Access Procedure 1: Tubes, Drains, and Vasc Access: [id number] Insertion Of Non-tunneled Catheter Age 5 Yrs> Procedure 2: Tubes, Drains, and Vasc Access: [id number] Ultrasound Guidance For Vascular Coding CPT Codes Tubes, Drains, and Vasc Access - Tubes, Drains, and Vasc Access: [id number] Insertion Of Non-tunneled Catheter Age 5 Yrs> ([id number]) Tubes, Drains, and Vasc Access - Tubes, Drains, and Vasc Access: [id number] Ultrasound Guidance For Vascular ([id number]) Additional Codes Date of Service (PG.[email or web address])
[2024-05-27 23:41] LABS: BUN Creatinine Ratio 8.7 (10-20); Calcium 7.9 mg/dl (8.6-10.3); Creatinine Clr Calc Pharmacy 11.9 ml/min; Magnesium 1.8 mg/dl (1.7-2.4); Potassium 3.8 mmol/L (3.5-5.1)
[2024-05-28] MEDS: ICU Protocol for HYPERglycemia SCH (00:06)
[2024-05-28] MEDS: INFLUENZA VACC TS2024-25(6m+)/PF (IIV3) 0.5mL Syr IM ONE (00:07)
[2024-05-28] MEDS: HYDROCORTISONE SOD 100 MG in SYRINGE 0 ML IV STA (02:01)
[2024-05-28] MEDS: MAGNESIUM SULFATE / D5W 1 GM/100 ML BAG IV SCH (02:04)
--- NOTE | 2024-05-28 03:41 | History & Physical Report ---
Date of Service May 28, 2024 The patient was seen and examined on May 27, 2024 Assessment & Plan (1) Admitted to intensive care unit: (2) Septic shock: (3) Acute dehydration: (4) Acute renal failure: (5) Severe sepsis: (6) Esophagitis: (7) Ileus: (8) Enteritis: Plan Septic shock/admitted to intensive care unit- Received 3 L normal saline bolus in the ED Continue Levophed Serial CBC with differential, chemistry profile and magnesium level Severe dehydration due to acute renal failure Likely infectious cause leading to ileus/enteritis/esophagitis NPO Given vancomycin IV and Zosyn IV in ED, and continue Follow urine cultures and blood cultures and stool studies Acute renal failure- Creatinine 4.08, with baseline 1.08 Status post 3 L normal saline in ED Continue rehydration per protocol Likely secondary to fluid losses from GI infection Repeat laboratories in a.m. Elevated troponin- Troponin 31.1 on admission with follow-up pending Most recent echocardiogram from 05/24/2023 with ejection fraction 55-60% The patient will be admitted to the ICU for serial cardiac enzymes, serial EKG's, cardiac rhythm monitoring and a 2-D echocardiogram with Dopplers. Seizure disorder- Change Keppra from 1000 mg p.o. twice daily to IV twice daily GERD/esophagitis- Placed on pantoprazole IV Admission and Anticipated Discharge Date Admission Date: May 27, 2024 History of Present Illness Chief Complaint: The patient presented to the emergency department with uncontrolled nausea, vomiting and diarrhea that began shortly after discharge on 05/23/2024. Patient's close friend who helps take care of her, reports that the patient had been feeling very fatigued, generally weak, and unable to take care of herself. Her medical device sales reports that she no longer can take care of the patient anymore Primary Care Provider: LUCHO Johnson The patient is a 64-year-old female past medical history including left lung adenocarcinoma, esophagitis, focal motor seizure, B12 deficiency, iron deficiency anemia, seizure-like activity, hyperlipidemia, allergic symptoms, hypomagnesemia, GERD and COPD. She was most recently admitted to [facility] from 05/23-05/23/2024 with nausea and vomiting, thought possibly secondary to Keytruda, and had acute kidney injury. She presents to the emergency department with similar symptoms as noted above. The patient was found to be hypotensive in the emergency department, received IV fluids and was started on Levophed infusion, and was admitted to the ICU for further treatment Allergies Allergy/AdvReac Type Severity Reaction Status Date / Time No Known Allergies Allergy Unverified 05/20/24 12:50 Home Medications Medication Instructions Recorded Confirmed Type albuterol sulfate 2.5 mg/3 mL 2.5 mg continuous nebulization UD 06/02/23 05/20/24 History (0.083 %) solution for nebulization PRN Shortness Of Breath Or Wheezing atorvastatin 80 mg tablet 80 mg PO DAILY 06/02/23 05/20/24 History cholecalciferol (vitamin D3) 50 50 mcg PO DAILY 06/02/23 05/20/24 History mcg (2,000 unit) tablet (Vitamin D3) hydroxyzine HCl 25 mg tablet 25 mg PO TID PRN Anxiety 06/02/23 05/20/24 History mirtazapine 30 mg tablet 30 mg PO HS 06/02/23 05/20/24 History tiotropium bromide 2.5 2 puff inhalation DAILY 06/02/23 05/20/24 History mcg/actuation mist for inhalation (Spiriva Respimat) docusate sodium 100 mg capsule 100 mg PO QID PRN contipation 09/09/23 05/20/24 History levetiracetam 1,000 mg tablet 1,000 mg PO BID #60 tabs 09/11/23 05/20/24 Rx (Keppra) magnesium oxide 400 mg (241.3 mg 400 mg PO BID #60 tabs 09/11/23 05/20/24 Rx magnesium) tablet pantoprazole 40 mg tablet,delayed 40 mg PO DAILY #30 tabs 05/13/24 05/20/24 Rx release (Protonix) promethazine 6.25 mg/5 mL oral 6.25 mg (5 mL) PO TID PRN nausea 05/13/24 05/20/24 Rx syrup and vomiting #120 mL cetirizine 10 mg tablet 10 mg PO DAILY 05/20/24 05/20/24 History fenofibrate 160 mg tablet 160 mg PO DAILY 05/20/24 05/20/24 History ondansetron HCl 8 mg tablet 8 mg PO Q8H PRN Nausea 05/20/24 05/20/24 History potassium chloride 10 mEq 10 meq PO BID 05/20/24 05/20/24 History tablet,extended release(part/cryst) sennosides 8.6 mg tablet (senna) 8.6 mg PO BID 05/20/24 05/20/24 History Past Med/Surg History Problem List (Updated 05/28/24 @ 03:50 by Miguel Noyola MD) Enteritis Ileus Admitted to intensive care unit Septic shock Acute dehydration (Acute) Elevated lactic acid level (Acute) Non-ST elevation DC (NSTEMI) (Acute) Leukocytosis (Acute) Severe sepsis (Acute) Acute renal failure (Acute) JUAN J (acute kidney injury) (Acute) Hypomagnesemia (Acute) Nausea, vomiting, and diarrhea (Acute) Encounter for pre-operative examination Adenocarcinoma of left lung Skin lesions Esophagitis JUAN J (acute kidney injury) Prolonged QT interval Hypocalcemia (Acute) Acute hypokalemia (Acute) Hypomagnesemia (Acute) 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 Focal motor seizure B12 deficiency Dilated bile duct Hypomagnesemia Tachycardia Iron deficiency anemia Fatigue Frontal headache Alcohol use disorder Tobacco use disorder Seizure-like activity Muscle spasm Vitamin D deficiency Osteoarthritis Vasogenic brain edema Traumatic hematoma of forehead (Acute) Focal seizure (Acute) Medical History Anemia Muscle spasm Brain metastasis Right arm weakness Brain lesion Anxiety Allergic rhinitis Depression GERD (gastroesophageal reflux disease) COPD (chronic obstructive pulmonary disease) Hyperlipidemia Hypertension Surgical History H/O craniotomy 06/05/23 - History of surgery For right arm fracture S/P hysterectomy Family History Mother , age 69 of liver cancer Liver cancer Father , in his early 70s Myocardial infarction Temporary pacemaker Brother Myocardial infarction Sister Stroke Hypertension Daughter No problems noted. 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 HEENT--PERRL, EOMI, mucous membranes and oropharynx severely dry. Neck--supple. No JVD. No bruits. Thyroid normal, trachea midline, no adenopathy. Heart--normal S1 and S2. No murmurs, rubs or gallops. Lungs--clear bilaterally, no respiratory distress, no accessory muscle use. Abdomen--normal bowel sounds and soft. Nontender. Nondistended, no hernias or masses, no organomegaly. Extremities--no cyanosis or clubbing. No edema. Dermatologic--skin is dry Neurologic--cranial nerves II through XII grossly intact. Rheumatologic--normal range of motion. Psychiatric--lethargic and nonresponsive Results & Data Results & Data Vital Signs (Past 12 Hours) Vital Signs Temp Pulse Pulse Resp BP BP Pulse Ox 05/28/24 03:12 37.3 C 91 H 16 99 05/28/24 02:48 37.3 C 89 16 95 05/28/24 02:45 91/53 L 05/28/24 02:45 91/53 L 05/28/24 02:45 91/53 L 05/28/24 02:33 37.3 C 97 H 20 98 05/28/24 02:30 89/50 L 05/28/24 02:30 89/50 L 05/28/24 02:30 89/50 L 05/28/24 02:24 37.3 C 95 H 21 98 05/28/24 02:21 37.3 C 102 H 17 97 05/28/24 02:15 100/36 L 05/28/24 02:15 100/36 L 05/28/24 02:12 37.3 C 97 H 18 98 05/28/24 02:03 37.3 C 99 H 22 99 05/28/24 02:00 98/66 L 05/28/24 01:48 37.3 C 96 H 24 99 05/28/24 01:46 93/58 L 05/28/24 01:46 93/58 L 05/28/24 01:46 93/58 L 05/28/24 01:45 37.3 C 101 H 22 98 05/28/24 01:37 102/52 L 05/28/24 01:30 92/54 L 05/28/24 01:30 92/54 L 05/28/24 01:30 92/54 L 05/28/24 01:18 106 H 23 05/28/24 01:06 94/56 L 05/28/24 01:06 94/56 L 05/28/24 01:03 37.2 C 105 H 22 99 05/28/24 00:54 37.2 C 107 H 17 99 05/28/24 00:30 89/69 L 05/28/24 00:30 37.2 C 108 H 22 99 05/28/24 00:18 37.3 C 109 H 19 98 05/28/24 00:15 88/60 L 05/28/24 00:09 37.3 C 115 H 19 99 05/28/24 00:00 108 H 05/28/24 00:00 96/65 L 05/28/24 00:00 96/65 L 05/28/24 00:00 37.3 C 115 H 22 99 05/27/24 23:51 37.3 C 109 H 20 05/27/24 23:48 83/56 L 05/27/24 23:48 83/56 L 05/27/24 23:48 83/56 L 05/27/24 23:48 83/56 L 05/27/24 23:46 80/60 L 05/27/24 23:39 37.2 C 111 H 27 H 98 05/27/24 23:30 37.2 C 111 H 22 98 05/27/24 23:21 36.9 C 112 H 20 98 05/27/24 23:15 86/54 L 05/27/24 23:06 37.0 C 111 H 20 98 05/27/24 23:00 100/52 L 05/27/24 22:57 36.9 C 110 H 23 100 05/27/24 22:45 37.1 C 113 H 17 89 L 05/27/24 22:36 37.0 C 109 H 23 96 05/27/24 22:31 88/65 L 05/27/24 22:31 88/65 L 05/27/24 22:31 88/65 L 05/27/24 22:15 85/59 L 05/27/24 22:15 36.9 C 108 H 27 H 100 05/27/24 22:06 36.9 C 102 H 23 100 05/27/24 22:01 77/56 L 05/27/24 21:51 37.0 C 110 H 24 100 05/27/24 21:46 97/69 L 05/27/24 21:46 97/69 L 05/27/24 21:39 36.8 C 117 H 21 98 05/27/24 21:30 36.9 C 116 H 26 H 100 05/27/24 21:29 74/55 L 05/27/24 21:18 36.8 C 115 H 22 99 05/27/24 21:15 94/56 L 05/27/24 21:15 94/56 L 05/27/24 21:06 119 H 05/27/24 21:06 36.7 C 115 H 22 100 05/27/24 21:03 77/65 L 05/27/24 21:00 05/27/24 21:00 37 C 119 H 20 87/64 L 99 05/27/24 20:27 120 H 22 94/67 L 90 05/27/24 20:13 121 H 24 96/58 L 99 05/27/24 20:07 126 H 24 104/57 L 98 05/27/24 20:00 123 H 24 126/65 98 05/27/24 19:52 37.0 C 124 H 24 116/56 L 95 05/27/24 19:46 124 H 24 93/69 L 99 10/23/24 19:46 122 H 24 93/69 L 98 05/27/24 19:31 118 H 24 97/54 L 99 05/27/24 19:26 98 05/27/24 19:24 35.4 C L 117 H 24 105/69 100 05/27/24 19:00 127 H 23 72/51 L 92 05/27/24 18:22 128 H 27 H 59/45 L 92 05/27/24 17:18 35.8 C L 133 H 20 94 05/27/24 16:48 132 H O2 Del Method O2 Flow Rate 05/28/24 03:12 05/28/24 02:48 05/28/24 02:45 05/28/24 02:45 05/28/24 02:45 05/28/24 02:33 05/28/24 02:30 05/28/24 02:30 05/28/24 02:30 05/28/24 02:24 05/28/24 02:21 05/28/24 02:15 05/28/24 02:15 05/28/24 02:12 05/28/24 02:03 05/28/24 02:00 05/28/24 01:48 05/28/24 01:46 05/28/24 01:46 05/28/24 01:46 05/28/24 01:45 05/28/24 01:37 05/28/24 01:30 05/28/24 01:30 05/28/24 01:30 05/28/24 01:18 05/28/24 01:06 05/28/24 01:06 05/28/24 01:03 05/28/24 00:54 05/28/24 00:30 05/28/24 00:30 05/28/24 00:18 05/28/24 00:15 05/28/24 00:09 05/28/24 00:00 05/28/24 00:00 05/28/24 00:00 05/28/24 00:00 05/27/24 23:51 05/27/24 23:48 05/27/24 23:48 05/27/24 23:48 05/27/24 23:48 05/27/24 23:46 05/27/24 23:39 05/27/24 23:30 05/27/24 23:21 05/27/24 23:15 05/27/24 23:06 05/27/24 23:00 05/27/24 22:57 05/27/24 22:45 05/27/24 22:36 05/27/24 22:31 05/27/24 22:31 05/27/24 22:31 05/27/24 22:15 05/27/24 22:15 05/27/24 22:06 05/27/24 22:01 05/27/24 21:51 05/27/24 21:46 05/27/24 21:46 05/27/24 21:39 05/27/24 21:30 05/27/24 21:29 05/27/24 21:18 05/27/24 21:15 05/27/24 21:15 05/27/24 21:06 05/27/24 21:06 Nasal Cannula 2 05/27/24 21:03 05/27/24 21:00 Room Air 05/27/24 21:00 Nasal Cannula 2 05/27/24 20:27 Nasal Cannula 2 05/27/24 20:13 05/27/24 20:07 05/27/24 20:00 05/27/24 19:52 Nasal Cannula 2 05/27/24 19:46 05/27/24 19:46 05/27/24 19:31 05/27/24 19:26 Nasal Cannula 2 05/27/24 19:24 Nasal Cannula 2 05/27/24 19:00 Nasal Cannula 2 05/27/24 18:22 Nasal Cannula 2 05/27/24 17:18 Room Air 05/27/24 16:48 Laboratory Results Laboratory Results WBC 16.35 K/ul (4.8-10.8) H 05/27/24 16:52 RBC 4.87 M/uL (4.20-5.40) 05/27/24 16:52 Hgb 15.4 g/dl (12.0-16.0) 05/27/24 16:52 POC Hgb 16.3 g/dl (12.0-16.0) H 05/27/24 21:28 Hct 46.8 % (37.0-47.0) 05/27/24 16:52 POC Hct 48 % (37-47) H 05/27/24 21:28 MCV 96.1 fL (80.0-100.0) 05/27/24 16:52 MCH 31.6 pg (25.0-34.0) 05/27/24 16:52 MCHC 32.9 g/dL (32.0-36.0) 05/27/24 16:52 RDW Std Deviation 44.7 fL (36.4-46.3) 05/27/24 16:52 RDW Coeff of Micheal 12.6 % (11.5-14.5) 05/27/24 16:52 Plt Count 466 K/uL (130-400) H 05/27/24 16:52 MPV 9.8 fL (9.4-12.4) 05/27/24 16:52 Immature Gran % (Auto) 0.5 % 05/27/24 16:52 Neut % (Auto) 70.5 % 05/27/24 16:52 Lymph % (Auto) 14.3 % 05/27/24 16:52 Hooker % (Auto) 13.9 % 05/27/24 16:52 Eos % (Auto) 0.2 % 05/27/24 16:52 Baso % (Auto) 0.6 % 05/27/24 16:52 Neut # (Auto) 11.54 K/uL (1.40-6.50) H 05/27/24 16:52 Lymph # (Auto) 2.33 K/uL (1.20-3.40) 05/27/24 16:52 Hooker # (Auto) 2.27 K/uL (0.11-0.59) H 05/27/24 16:52 Eos # (Auto) 0.04 K/uL (0.00-0.50) 05/27/24 16:52 Baso # (Auto) 0.09 K/uL (0.00-0.20) 05/27/24 16:52 Immature Gran # (Auto) 0.08 K/uL (0.01-0.20) 05/27/24 16:52 PT 12.5 Seconds (9.0-12.0) H 05/27/24 16:52 INR 1.2 (0.9-1.1) H 05/27/24 16:52 POC pH 7.24 (7.35-7.45) L 05/27/24 21:28 POC pCO2 30 mmHg (35-46) L 05/27/24 21:28 POC pO2 116 mmHg (80-95) H 05/27/24 21:28 POC HCO3 13 keke/L (19-24) L 05/27/24 21:28 POC Total CO2 14 mmol/L (24-31) L 05/27/24 21:28 POC Base Excess -15.0 keke/L (-9-1.8) L 05/27/24 21:28 POC ABG O2 Sat 98.0 % (90-95) H 05/27/24 21:28 POC Sodium 141 mmol/L (135-144) 05/27/24 21:28 Sodium 139 mmol/L (136-145) 05/27/24 22:56 POC Potassium 3.9 mmol/L (3.3-5.0) 05/27/24 21:28 Potassium 3.8 mmol/L (3.5-5.1) 05/27/24 22:56 Chloride 109 mmol/L (98-107) H 05/27/24 22:56 Carbon Dioxide 15 mmol/L (21-32) L 05/27/24 22:56 Anion Gap 15 (3-11) H 05/27/24 22:56 BUN 29 mg/dl (6-23) H 05/27/24 22:56 Creatinine 3.34 mg/dl (0.6-1.2) H D 05/27/24 22:56 Est Cr Clr Drug Dosing 11.9 ml/min 05/27/24 22:56 eGFR 14.80 05/27/24 22:56 BUN/Creatinine Ratio 8.7 (10-20) L 05/27/24 22:56 Glucose 172 mg/dl (70-99(Fasting)) H 05/27/24 22:56 POC Glucose 157 mg/dl (70-99) H 05/28/24 01:22 Lactate 2.1 mmol/L (0.4-2.0) H* 05/27/24 21:27 Calcium 7.9 mg/dl (8.6-10.3) L D 05/27/24 22:56 Magnesium 1.8 mg/dl (1.7-2.4) 05/27/24 22:56 Total Bilirubin 0.5 mg/dl (0.2-1.0) 05/27/24 16:52 AST 33 U/L (13-39) 05/27/24 16:52 ALT 33 U/L (7-52) 05/27/24 16:52 Alkaline Phosphatase 36 U/L (34-104) 05/27/24 16:52 Troponin I High Sens 37.4 pg/ml (0-14) H 05/27/24 19:47 Total Protein 8.1 gm/dl (6.0-8.3) 05/27/24 16:52 Albumin 4.7 gm/dl (3.4-5.0) 05/27/24 16:52 Globulin 3.4 gm/dl (2.5-4.0) 05/27/24 16:52 Albumin/Globulin Ratio 1.4 (0.9-2) 05/27/24 16:52 Lipase 25 U/L (11-82) 05/27/24 16:52 Procalcitonin 2.25 ng/ml (0-0.5) H 05/27/24 16:52 Random Cortisol 12.93 mcg/dl 05/27/24 21:27 Urine Color Yellow 05/27/24 Unknown Urine Appearance Turbid (Clear) A 05/27/24 Unknown Urine pH 5.5 (4.5-7.5) 05/27/24 Unknown Ur Specific [place] 1.020 (1.000-1.030) 05/27/24 Unknown Urine Protein 3+ (Negative) H 05/27/24 Unknown Urine Glucose (UA) Trace (Negative) H 05/27/24 Unknown Urine Ketones 1+ (Negative) H 05/27/24 Unknown Urine Blood 2+ (Negative) H 05/27/24 Unknown Urine Nitrite Negative (Negative) 05/27/24 Unknown Urine Bilirubin Negative (Negative) 05/27/24 Unknown Urine Urobilinogen Negative (Negative) 05/27/24 Unknown Ur Leukocyte Esterase Trace (Negative) H 05/27/24 Unknown Urine WBC (Auto) 11-20 /hpf (0-5) H 05/27/24 Unknown Urine RBC (Auto) >20 /hpf (0-2) H 05/27/24 Unknown U Hyaline Cast (Auto) >20 /lpf (0-2) H 05/27/24 Unknown U Epithel Cells (Auto) >20 /hpf (0-2) H 05/27/24 Unknown Urine Bacteria (Auto) 2+ (None Seen) H 05/27/24 Unknown Calcium Oxalate Crystal Present (None Prsent) A 05/27/24 Unknown Nasal Screen MRSA (PCR) Negative (Negative) 05/27/24 Unknown Stl C. diff Tox B Gene Negative Cdiff Gene (Neg) 05/28/24 01:19 Adenovirus (PCR) Not Detected (NotDetected) 05/27/24 19:25 B. pertussis DNA (PCR) Not Detected (NotDetected) 05/27/24 19:25 B.parapertussis DNA PCR Not Detected (NotDetected) 05/27/24 19:25 C. pneumoniae DNA (PCR) Not Detected (NotDetected) 05/27/24 19:25 Coronavirus OC43 (PCR) Not Detected (NotDetected) 05/27/24 19:25 Coronavirus HKU1 (PCR) Not Detected (NotDetected) 05/27/24 19:25 Coronavirus 229E (PCR) Not Detected (NotDetected) 05/27/24 19:25 SARS-CoV-2 (PCR) Not Detected (NotDetected) 05/27/24 19:25 Coronavirus NL63 (PCR) Not Detected (NotDetected) 05/27/24 19:25 Human Metapneumovir PCR Not Detected (NotDetected) 05/27/24 19:25 Influenza Type A (PCR) Not Detected (NotDetected) 05/27/24 19:25 Influenza Type B (PCR) Not Detected (NotDetected) 05/27/24 19:25 M. pneumoniae (PCR) Not Detected (NotDetected) 05/27/24 19:25 Parainfluenza 1 (PCR) Not Detected (NotDetected) 05/27/24 19:25 Parainfluenza 2 (PCR) Not Detected (NotDetected) 05/27/24 19:25 Parainfluenza 3 (PCR) Not Detected (NotDetected) 05/27/24 19:25 Parainfluenza 4 (PCR) Not Detected (NotDetected) 10/23/24 19:25 RSV (PCR) Not Detected (NotDetected) 05/27/24 19:25 Entero/Rhino (PCR) Not Detected (NotDetected) 05/27/24 19:25 Impressions Abdomen/Pelvis CT 05/27/24 17:24 Exam(s): CT ABDOMEN + PELVIS Without Contrast EXAM: CT Abdomen and Pelvis Without Intravenous Contrast CLINICAL HISTORY: Reason for exam: abd pain; N/V/D; hx of cancer. TECHNIQUE: Axial computed tomography images of the abdomen and pelvis without intravenous contrast. CTDI is 45.3 mGy and DLP is 885.62 mGy-cm. Automated exposure control was utilized for the study. A dose lowering technique was utilized adhering to the principles of ALARA. COMPARISON: No relevant prior studies available. FINDINGS: Lung bases: Unremarkable. No mass. No consolidation. Mediastinum: There is a 1 cm circumferential thickening of the wall of the distal esophagus suggesting esophagitis. No hiatal hernia. ABDOMEN: Liver: Unremarkable. Gallbladder and bile ducts: Unremarkable. No calcified stones. No ductal dilation. Pancreas: Unremarkable. No ductal dilation. Spleen: Unremarkable. No splenomegaly. Adrenals: Unremarkable. No mass. Kidneys and ureters: There is a 1.7 cm simple cyst in the left kidney. No follow-up is required. No hydronephrosis or ureterolithiasis is seen involving either kidney. Stomach and bowel: See below. PELVIS: Appendix: The appendix is normal. There are multiple scattered gas fluid levels throughout distended but nondilated loops of large and small bowel suggesting ileus and/or enteritis. No focal bowel wall thickening or inflammation is seen. No pneumoperitoneum, free fluid, or abscess. Bladder: Unremarkable. No stones. Reproductive: Unremarkable as visualized. ABDOMEN and PELVIS: Intraperitoneal space: The uterus is absent. No free fluid in the pelvis. Bones/joints: Mild multilevel degenerative changes throughout the spine. No acute fracture or subluxation. Soft tissues: Unremarkable. Vasculature: The abdominal aorta is mildly calcified but nondilated. Lymph nodes: Unremarkable. No enlarged lymph nodes. IMPRESSION: 1. The appendix is normal. There are multiple scattered gas fluid levels throughout distended but nondilated loops of large and small bowel suggesting ileus and/or enteritis. No focal bowel wall thickening or inflammation is seen. No pneumoperitoneum, free fluid, or abscess. 2. No hydronephrosis or ureterolithiasis is seen involving either kidney. 3. There is a 1 cm circumferential thickening of the wall of the distal esophagus suggesting esophagitis. No hiatal hernia. Electronically signed by: Peter Castaneda MD 05/27/24 20:[address] 05/27/24 17:49 CT head/brain wo con CLINICAL HISTORY: vomiting; hx of metastatic cancer Technique: Contiguous axial CT images of the head were acquired from the base of the skull to the vertex without intravenous contrast administration. Images were viewed in brain, subdural and bone windows. Automated dose lowering techniques and/or adjustment according to patient size were utilized for this exam. Comparison: Comparison is made to CT head 05/20/2024 Findings: The ventricles, basal cisterns, and cerebral sulci are normal. There is no acute intracranial hemorrhage or evidence of acute territorial infarction. Neither mass effect, shift of the midline structures, nor abnormal extra-axial fluid collections are shown. Encephalomalacia in the left frontal lobe is again seen. Imaged portions of the paranasal sinuses and mastoid air cells are clear. The orbits appear normal. Postsurgical changes of frontal craniectomy are seen. Impression: No acute abnormalities. No evidence of vasogenic edema to suggest metastasis. Post surgical changes in the left frontal lobe. ACT 112: Negative or not required by law. Electronically signed by: Byron Jain M.D. 05/27/2024 6:50 PM Code Status & VTE Plan Code Status Conditional code: No chest compressions, but does want intubation if needed VTE Prophylaxis Plan VTE Prophylaxis will be ordered: Yes PG Care Time/CCT Total # of Minutes Spent Total Time Spent with Patient: Total time spent is greater than 50% in coordination of care (as documented) at patient's floor/unit and/or counseling patient: Coding Level of Care Code 39969 INT INP/OBS CARE 3/75MIN Diagnoses Admitted to intensive care unit Z78.9 Septic shock A41.9; R65.21 Acute dehydration E86.0 Acute renal failure N17.9 Severe sepsis A41.9; R65.20 Esophagitis K20.90 Ileus K56.7 Enteritis K52.9
[2024-05-28] MEDS: PLASMA-LYTE A 1,000 ML IV SCH (03:55)
--- NOTE | 2024-05-28 03:56 | Billing Data ---
Date of Service May 28, 2024 Coding Level of Care Code 78210 CRITICAL CARE 1ST 30-74M Comment Total critical care time 55 minutes
[2024-05-28 04:19] LABS: HCO3 VBG 16 mmol/L; Oxygen Saturation VBG 84.5 %; PCO2 VBG 36 mmHg (38-50); PO2 VBG 53 mmHg; pH VBG 7.26 (7.36-7.41)
[2024-05-28 04:27] LABS: Basophils # (auto) 0.04 K/uL (0.00-0.20); Basophils % (auto) 0.5 %; Eosinophils # (auto) 0.03 K/uL (0.00-0.50); Eosinophils % (auto) 0.3 %; Hematocrit (blood only) 29.1 % (37.0-47.0); Hemoglobin 9.7 g/dl (12.0-16.0); Immature Granulocytes # (auto) 0.03 K/uL (0.01-0.20); Immature Granulocytes % (auto) 0.3 %; Lymphocytes # (auto) 0.61 K/uL (1.20-3.40); Mean Corpuscular Hemoglobin 31.5 pg (25.0-34.0); Mean Corpuscular Hgb Conc 33.3 g/dL (32.0-36.0); Mean Corpuscular Volume 94.5 fL (80.0-100.0); Mean Platelet Volume 9.1 fL (9.4-12.4); Monocytes # (auto) 1.03 K/uL (0.11-0.59); Monocytes % (auto) 11.8 %; Neutrophils # (auto) 6.99 K/uL (1.40-6.50); Neutrophils % (auto) 80.1 %; Platelet Count 290 K/uL (130-400); RDW Coefficient of Variation 12.7 % (11.5-14.5); RDW Standard Deviation 43.6 fL (36.4-46.3); Red Blood Count 3.08 M/uL (4.20-5.40); White Blood Count 8.73 K/ul (4.8-10.8)
[2024-05-28 04:58] LABS: INR 1.1 (0.9-1.1); Partial Thromboplastin Ratio 1.4; Partial Thromboplastin Time 38 Seconds (21-31); Prothrombin Time 12.1 Seconds (9.0-12.0)
[2024-05-28 04:59] LABS: Albumin Globulin Ratio 1.4 (0.9-2); Albumin Level 3.3 gm/dl (3.4-5.0); BUN Creatinine Ratio 8.7 (10-20); Bilirubin,Total 0.4 mg/dl (0.2-1.0); Calcium 8.2 mg/dl (8.6-10.3); Creatinine Clr Calc Pharmacy 12.8 ml/min; Globulin 2.3 gm/dl (2.5-4.0); Magnesium 2.6 mg/dl (1.7-2.4); Potassium 3.8 mmol/L (3.5-5.1); Total Protein 5.6 gm/dl (6.0-8.3); Troponin I High Sensitivity 70.1 pg/ml (0-14)
[2024-05-28] MEDS: POTASSIUM CHLORIDE / WTR 20 MEQ/100 ML PLCT IV ONE (06:10)
--- NOTE | 2024-05-28 07:16 | XRay Report ---
XR chest 1V portable HISTORY: 64 years-old Female Central line placement status post placement of a right IJ central veno us catheter COMPARISON: 05/27/2024 TECHNIQUE: AP view of the chest FINDINGS: Status post placement of a right IJ central venous catheter with distal tip in the expected location of the mid SVC. No pneumothorax. Pulmonary vascular congestion. Heart size is unchanged. No large ple ural effusion or airspace consolidation. There is unchanged interstitial coarsening. Pulmonary emphys adeel. IMPRESSION: Status post placement of a right IJ central venous catheter. No postprocedural pneumothor ax. ACT 112: Negative or not required by law. The above report was generated using voice recognition software. It may contain grammatical, syntax o r spelling errors. Electronically signed by: Drake Maxwell M.D. 05/28/2024 7:15 AM
--- OUTSIDE RECORDS SUMMARY | 2024-05-28 08:58 | External Medical Summary | Summary of Care ---
Author Name Unknown Organization [facility] Address [address] [place] [address] Phone [phone] Care Team Providers Care Flag Maker Name Role Phone Amarilys Hamilton Primary Care Provider [phone] Reason for Visit * Reason Onset Date Comments Advice 05/20/2024 Encounter Details Date Type Department Care Team (Late st Contact Info) Description 05/20/2024 Telephone Hematology/Oncology, [facility] [address] [place] [address] Tita Coffman CRNP [address] [place] [address] Advice Allergies No known active allergiesdocumented as of this encounter (statuses as of 05/21/2024) Medications Medication Sig Dispensed Refills Start Date [...] by mouth at bedtime. 01/15/2023 Active Tiotropium [place] Monohydrate 2.5 MCG/ACT Inhalation Aerosol Solution (Spiriva [...] as of this encounter (statuses as of 05/21/2024) Active Problems Problem Noted Date Diagnosed Date [...] as of this encounter (statuses as of 05/21/2024) Immunizations Name Administration Dates Next Due Seasonal [...] Telephone Encounter - Monica Loco RN - 05/21/2024 9:59 AM EDT Reviewed meditech- patient went to ER yesterday morning, currently admitted. * Telephone Encounter - Monica Loco RN - 05/20/2024 11:20 AM EDT Left message for patient to return call to assess symptoms. * Telephone Encounter - Cassia Muller OSA [...] today due to being ill. Please call [phone] to reschedule. documented in this encounter Plan of Treatment Upcoming Encounters Date Type Department Care Team (Late st Contact Info) Description 05/27/2024 12:40 PM EDT Laboratory Laboratory [facility] [place] [address] [place] [phone] [place] Lab [place] [address] [place] [address] 05/27/2024 1:45 PM EDT Office Visit Hematology/Oncology [facility] [place] [address] [place] [phone] Bradley Amaya MD [address] [place] [address] 06/10/2024 9:30 AM EST Laboratory Laboratory [facility] [place] [address] [place] [address] [place] Lab [place] [address] [place] [address] 06/10/2024 10:30 AM EST Hem/Onc Treatment Hematology/Oncology Treatment, [place] [address] [place] [phone] Mar[place], Chair 9 Hem Onc [facility] [address] [place] [address] 06/10/2024 11:30 AM EST Office Visit Palliative Medicine [facility] [address] [place] [address] Charlotte Price MD [address] [place] [address] [place] [address] Health Maintenance Due Date Last Done Comments DISCUSS TOBACCO CESSATION (REFER TO SMARTSET #0318) 1960 COVID-19 Vaccine (#1) 01/23/1965 Pneumococcal Vaccine: [...] this encounter Medical Devices Implanted Type Area Account Executive Metalworking Device Identifier Shelf Expiration Date Model / Serial / Lot [place] Neuro Box Plate, 2x2 Hole Implanted:Qty : 2 on 06/05/2023 by Peter Omalley MD at [facility] Left: Head [id number] / / [place] Neuro Straight Plate 8-Hole W/O Bar Implanted:Qty : 1 on 06/05/2023 by Peter Omalley MD at [facility] Left: Head [id number] / / [place] Neuro Rectangle Plate Implanted:Qty : 1 on 06/05/2023 by Peter Omalley MD at [facility] Left: Head [id number] / / Anur[place] [place] Neuro Moody Hole Cover Plate 10 Mm, W/ Tab Implanted:Qty : 1 on 06/05/2023 by Peter Omalley MD at [facility] Left: Head [id number] / / Screw 1.5x4mm Sd Un3 - [id number] Implanted:Qty : 20 on 06/05/2023 by Peter Omalley MD at [facility] Left: Head ANURADHA : CRANIOMAXILLOFACIAL [id number] / / documented as of this encounter Advance Directives Documents on File Type Date Recorded Patient Engineering Inspection Assistant Daniela ZACARIAS 12/12/2023 signed on 12/10 [place] [...] Advance Directives occurred with: Patient Care Teams Flag Maker Relationship Specialty Start Date End Date Amarilys Hamilton CRNP [address] [place] [address] PCP - General Nurse Practitioner 12/11/23 documented as of this encounter
--- OUTSIDE RECORDS SUMMARY | 2024-05-28 08:58 | External Medical Summary | Summary of Care ---
Author Name Unknown Organization [facility] Address [address] [place] [address] Phone [phone] Care Team Providers Care Radio Division Lieutenant Name Role Phone Amarilys Hamilton Primary Care Provider [phone] Reason for Visit * Reason Onset Date Comments Advice 05/20/2024 Encounter Details Date Type Department Care Team (Late st Contact Info) Description 05/20/2024 Telephone Hematology/Oncology, [facility] [address] [place] [address] Tita Coffman CRNP [address] [place] [address] Advice Allergies No known active [...] by mouth at bedtime. 01/15/2023 Active Tiotropium [place] Monohydrate 2.5 MCG/ACT Inhalation Aerosol Solution (Spiriva [...] today due to being ill. Please call [phone] to reschedule. documented in this encounter Plan of Treatment Upcoming Encounters Date Type Department Care Team (Late st Contact Info) Description 05/27/2024 12:40 PM EDT Laboratory Laboratory [facility] [address] [place] [phone] [place], Lab [facility] [address] [facility] [place] [address] 05/27/2024 1:15 PM EDT Office Visit Hematology/Oncology [place] [address] [place] [phone] [facility] [address] [facility] [address] 06/10/2024 9:30 AM EST Laboratory Laboratory [facility] [address] [place], [place] [address] Mar[place], Lab [facility] [address] [facility] [place], [place] [address] 06/10/2024 10:30 AM EST Hem/Onc Treatment Hematology/Oncology Treatment, [address], [place] [phone] Mariana, Chair 9 Hem Onc [address] [place], [place] [address] 06/10/2024 11:30 AM EST Office Visit Palliative Medicine [facility] [address], [place] [phone] Charlotte Price MD [address] [place] [address] [place] [address] Health Maintenance Due Date Last Done Comments DISCUSS TOBACCO CESSATION (REFER TO SMARTSET #2280) 1960 COVID-19 Vaccine (#1) 01/23/1965 Pneumococcal Vaccine: [...] this encounter Medical Devices Implanted Type Area Medical Radiation Dosimetrist Device Identifier Shelf Expiration Date Model / Serial / Lot [place] Neuro Box Plate, 2x2 Hole Implanted:Qty : 2 on 06/05/2023 by Peter Omalley MD at [place] [facility] Left: Head [id number] / / Anur[place]ha [place] Neuro Straight Plate 8-Hole W/O Bar Implanted:Qty : 1 on 06/05/2023 by Peter Omalley MD at [facility] Left: Head [id number] / / [place] Neuro Rectangle Plate Implanted:Qty : 1 on 06/05/2023 by Peter Omalley MD at [facility] Left: Head [id number] / / [place] Neuro Geo Hole Cover Plate 10 Mm, W/ Tab Implanted:Qty : 1 on 06/05/2023 by Peter Omalley MD at [facility] Left: Head [id number] / / Screw 1.5x4mm Sd Un3 - [id number] Implanted:Qty : 20 on 06/05/2023 by Peter Omalley MD at [facility] Left: Head ANURADHA : CRANIOMAXILLOFACIAL [id number] / / documented as of this encounter Advance Directives Documents on File Type Date Recorded Patient Corporate Treasury Analyst Expl anation POL 12/12/2023 signed on 12/10 [place] ORDERS FOR LIFE-SUSTAINING TREATMENT * Full Code [...] 06/04/2023 5:21 AM 06/04/2023 6:30 PM This orde r reflects the patients wishes and were consensually agreed upon. Question Answer Comments Discussion of Advance Directives occurred with: Patient Care Teams Radio Division Lieutenant Relationship Specialty Start Date End Date Amarilys Hamilton CRNP [address] [place] [address] PCP - General Nurse Practitioner 12/11/23 documented as of this encounter
[2024-05-28] MEDS: HYDROCORTISONE SOD 50 MG in SYRINGE 0 ML IV SCH (09:17)
--- NOTE | 2024-05-28 09:22 | Critical Care Progress Note ---
Date of Service May 28, 2024 Assessment & Plan (1) Septic shock: Plan: Reason Critically Ill: 64-year-old female with past medical history of metastatic adenocarcinoma currently undergoing treatment with Keytruda presents to the ICU after 3 days of nausea and vomiting, now hypotensive requiring vasopressor support with possible sepsis. Neuro - [facility] ICU: Positive History of left frontal lobe craniectomy. Patient with baseline dementia/confusion. - She did undergo CT head which was negative for acute intracranial findings Seizure disordercontinue Keppra Cardiac - Shocklikely sepsis, With hypovolemia likely also playing a role in the setting of 3 days of vomiting/diarrhea See ID for treatment of sepsis below - Will continue with aggressive fluid resuscitation - Central venous catheter inserted. Titrate Levophed drip to maintain MAP greater than 65 - Follow-up TTE. Previous TTE with grade 1 diastolic dysfunction and normal EF -Random cortisol low, continue with stress dose steroids - Hold antihypertensives - Continuous monitoring on telemetry Respiratory - COPDstable. Lungs clear to auscultation and ABG without Hypercapnia or respiratory acidosis - DuoNebs as needed - Continuous monitoring on pulse ox. Currently maintaining oxygen saturation on room air GI - SBO/ileusCT abdomen and pelvis with dilated small bowel loops consistent with ileus. Likely source of abdominal pain. - No active vomiting at this time. Will hold off on NG tube for now and keep n.p.o. - Consider surgical consult if worsening Gastritiscontinue PPI RENAL/LYTES - Acute renal failurepatient with elevated creatinine of 4. Urine output improving with fluid administration. - Likely prerenal considering severe dehydration/hypovolemia with hypotension with sepsis - Continue with fluid resuscitation and maintain MAP greater than 65 to ensure renal perfusion - Avoid nephrotoxins and renally adjust medications - No significant electrolyte abnormalities at this time. Will follow BMPs closely -Consider nephrology consult - Foleystrict I's and O's ENDO - No history of diabetes or thyroid disease. ICU hyperglycemic protocol HEME - H&H stable, monitor routine CBC ID - Sepsisunsure of etiology at this time but suspect possible colitis with diarrhea. Patient also underwent treatment for recent UTI - Receive Zosyn and vancomycin in the emergency department - BioFire negative, C. difficile negative, nasal MRSA negative -Urine and blood cultures pending. - Continue with empiric cefepime/Flagyl for now LINES/IV ACCESS - Peripheral IVs, CVC right IJ inserted 05/27 DVT PROPHYLAXIS - SCDs, heparin subcu I have personally spent 42 minutes of critical care time in the direct management of this patient. This is a life/limb threatening event. This includes time spent evaluating patient, direct bedside care, chart review, placing orders, interpretation of diagnostic studies, discussion with consultants, patient, and family members, as well as other required patient management activities. This time is exclusive of all separately billable procedures, and teaching time and separate from and in addition to any other critical care service time. Thank you for allowing us to participate in the care of this patient. Please refer to my attending physician's documentation for any further recommendations. (2) Elevated lactic acid level: (3) Non-ST elevation [place] (NSTEMI): (4) Acute renal failure: (5) Adenocarcinoma of left lung: (6) Esophagitis: Admission and Anticipated Discharge Date Admission Date: May 27, 2024 Subjective Patient remains encephalopathic and does not answer any significant questions. She does withdraw from painful stimuli and spontaneously moves her limbs. Currently requiring Levophed. Review of Systems Review of Systems: Unobtainable due to cognitive status Physical Exam Constitutional: + frail appearing; no acute distress Eyes: PERRL, conjunctivae normal, anicteric sclerae ENMT: external ear and nose normal, oropharynx normal Neck: trachea midline, no thyromegaly Respiratory: normal respiratory effort, lungs clear to auscultation Cardiovascular: Rate/Rhythm: + tachycardic Heart Sounds: normal S1 and normal S2; no murmur Extremities: no edema Gastrointestinal (Abdomen): Abdomen soft, tender with palpation generalized in all 4 quadrants. Bowel sounds present all 4 quadrants Musculoskeletal: no cyanosis or clubbing, extremities motor strength 5/5 Skin: no rashes, warm and dry Neurologic: PERRL, EOMI, accommodation nl, no face palsy, no dysarthria Psychiatric: Orientation: oriented to person; + not oriented to place and + not oriented to time Genitourinary: Indwelling Bermudez catheter present, urine concentrated dark yellow Results & Data Results & Data Vital Signs (Past 12 Hours) Vital Signs Temp Pulse Resp BP Pulse Ox 05/28/24 06:30 96/74 L 05/28/24 06:27 37.2 C 87 18 99 05/28/24 06:15 116/64 05/28/24 06:12 37.2 C 92 H 16 97 05/28/24 06:06 37.2 C 95 H 18 98 05/28/24 06:00 108/66 05/28/24 05:54 37.1 C 88 18 98 05/28/24 05:45 107/72 05/28/24 05:36 37.0 C 104 H 17 97 05/28/24 05:31 107/67 05/28/24 05:31 107/67 05/28/24 05:31 107/67 05/28/24 05:30 37.0 C 102 H 18 98 05/28/24 05:27 37.0 C 102 H 22 98 05/28/24 05:15 111/75 05/28/24 05:06 37.2 C 89 14 94 05/28/24 05:03 37.2 C 88 13 94 05/28/24 05:00 90/55 L 05/28/24 05:00 90/55 L 05/28/24 04:54 37.2 C 83 14 95 05/28/24 04:48 37.2 C 83 20 98 05/28/24 04:45 109/64 05/28/24 04:45 109/64 05/28/24 04:45 109/64 05/28/24 04:45 109/64 05/28/24 04:42 37.2 C 88 28 H 97 05/28/24 04:30 102/65 05/28/24 04:30 37.3 C 81 14 98 05/28/24 04:27 37.3 C 82 16 98 05/28/24 04:03 37.3 C 89 16 99 05/28/24 04:00 109/65 05/28/24 04:00 109/65 05/28/24 04:00 109/65 05/28/24 03:51 37.2 C 95 H 17 100 05/28/24 03:48 37.2 C 93 H 16 97 05/28/24 03:45 100/57 L 05/28/24 03:45 100/57 L 05/28/24 03:36 102/56 L 05/28/24 03:36 102/56 L 05/28/24 03:36 102/56 L 05/28/24 03:36 37.3 C 97 H 23 99 05/28/24 03:18 37.3 C 85 17 99 05/28/24 03:15 93/57 L 05/28/24 03:15 93/57 L 05/28/24 03:15 93/57 L 05/28/24 03:12 37.3 C 91 H 16 99 05/28/24 02:48 37.3 C 89 16 95 05/28/24 02:45 91/53 L 05/28/24 02:45 91/53 L 05/28/24 02:45 91/53 L 05/28/24 02:33 37.3 C 97 H 20 98 05/28/24 02:30 89/50 L 05/28/24 02:30 89/50 L 05/28/24 02:30 89/50 L 05/28/24 02:24 37.3 C 95 H 21 98 05/28/24 02:21 37.3 C 102 H 17 97 05/28/24 02:15 100/36 L 05/28/24 02:15 100/36 L 05/28/24 02:12 37.3 C 97 H 18 98 05/28/24 02:03 37.3 C 99 H 22 99 05/28/24 02:00 98/66 L 05/28/24 01:48 37.3 C 96 H 24 99 05/28/24 01:46 93/58 L 05/28/24 01:46 93/58 L 05/28/24 01:46 93/58 L 05/28/24 01:45 37.3 C 101 H 22 98 05/28/24 01:37 102/52 L 05/28/24 01:30 92/54 L 05/28/24 01:30 92/54 L 05/28/24 01:30 92/54 L 05/28/24 01:18 106 H 23 05/28/24 01:06 94/56 L 05/28/24 01:06 94/56 L 05/28/24 01:03 37.2 C 105 H 22 99 05/28/24 00:54 37.2 C 107 H 17 99 05/28/24 00:30 89/69 L 05/28/24 00:30 37.2 C 108 H 22 99 05/28/24 00:18 37.3 C 109 H 19 98 05/28/24 00:15 88/60 L 05/28/24 00:09 37.3 C 115 H 19 99 05/28/24 00:00 108 H 05/28/24 00:00 96/65 L 05/28/24 00:00 96/65 L 05/28/24 00:00 37.3 C 115 H 22 99 05/27/24 23:51 37.3 C 109 H 20 05/27/24 23:48 83/56 L 05/27/24 23:48 83/56 L 05/27/24 23:48 83/56 L 05/27/24 23:48 83/56 L 05/27/24 23:46 80/60 L 05/27/24 23:39 37.2 C 111 H 27 H 98 05/27/24 23:30 37.2 C 111 H 22 98 05/27/24 23:21 36.9 C 112 H 20 98 05/27/24 23:15 86/54 L 05/27/24 23:06 37.0 C 111 H 20 98 05/27/24 23:00 100/52 L 05/27/24 22:57 36.9 C 110 H 23 100 05/27/24 22:45 37.1 C 113 H 17 89 L 05/27/24 22:36 37.0 C 109 H 23 96 05/27/24 22:31 88/65 L 05/27/24 22:31 88/65 L 05/27/24 22:31 88/65 L 05/27/24 22:15 85/59 L 05/27/24 22:15 36.9 C 108 H 27 H 100 05/27/24 22:06 36.9 C 102 H 23 100 05/27/24 22:01 77/56 L 05/27/24 21:51 37.0 C 110 H 24 100 05/27/24 21:46 97/69 L 05/27/24 21:46 97/69 L 05/27/24 21:39 36.8 C 117 H 21 98 05/27/24 21:30 36.9 C 116 H 26 H 100 05/27/24 21:29 74/55 L Coding Level of Care Code 57362 CRITICAL CARE 1ST 30-74M Diagnoses Septic shock A41.9; R65.21 Elevated lactic acid level R79.89 Non-ST elevation [place] (NSTEMI) I21.4 Acute renal failure N17.9 Adenocarcinoma of left lung C34.92 Esophagitis K20.90
--- NOTE | 2024-05-28 11:57 | Communication Note ---
Date of Service: May 28, 2024 Please refer to the H&P dictated earlier this morning for details of presentation on admission. In brief, this is a patient well-known to myself because I recently discharged her on 05/23 from my service. She has left lung adenocarcinoma, on Keytruda and was just admitted with side effects of Keytruda leading to nausea vomiting and acute kidney injury. Once her symptoms improved, she was discharged. Her EGD had showed esophagitis and gastritis. She comes back with uncontrolled nausea, vomiting and diarrhea that began shortly after her discharge. She was found to be in septic shock. Currently she is on broad- spectrum IV antibiotics, pressors, being managed in the ICU, in acute renal failure.
[2024-05-28] MEDS: 4.5GM X1 IV ONE (12:18)
--- NOTE | 2024-05-28 13:25 | XCELERA ---
[id number] \\[id number]
--- NOTE | 2024-05-28 14:51 | Palliative Care Consultation ---
Date of Consultation May 28, 2024 Assessment & Plan (1) Generalized weakness: (2) Altered mental status: (3) Palliative care by specialist: Plan Pt unable to participate in ACP Will try to reach her family Thank you for allowing us to participate in the ongoing care of this patient. Please page with any additional concerns. Frida Sepulveda [facility] Director, Palliative Medicine History of Present Illness Reason for Consultation: stage IV lung ca, septic shock Attending Physician: Remedios Lew MD History of Present Illness Patient is a 64yo female who was just recently dc from [facility] 05/23/24 for side effects of Keytruda leading to nausea vomiting and acute kidney injury She left lung adenocarcinoma, on Keytruda. EGD had showed esophagitis and gastritis. She returned earlier this morning with uncontrolled nausea, vomiting and diarrhea that began shortly after her discharge, +septic shock. presently in ICU, + broad-spectrum IV antibiotics, pressors, +ARF No family present She is awake but confused c/o very cold, wants multiple blankets cannot provide much HPI but tells me she has cancer, "it's been getting bad." Allergies Allergy/AdvReac Type Severity Reaction Status Date / Time No Known Allergies Allergy Unverified 05/20/24 12:50 Home Medications Medication Instructions Recorded Confirmed Type albuterol sulfate 2.5 mg/3 mL 2.5 mg continuous nebulization UD 06/02/23 05/20/24 History (0.083 %) solution for nebulization PRN Shortness Of Breath Or Wheezing atorvastatin 80 mg tablet 80 mg PO DAILY 06/02/23 05/20/24 History cholecalciferol (vitamin D3) 50 50 mcg PO DAILY 06/02/23 05/20/24 History mcg (2,000 unit) tablet (Vitamin D3) hydroxyzine HCl 25 mg tablet 25 mg PO TID PRN Anxiety 06/02/23 05/20/24 History mirtazapine 30 mg tablet 30 mg PO HS 06/02/23 05/20/24 History tiotropium bromide 2.5 2 puff inhalation DAILY 06/02/23 05/20/24 History mcg/actuation mist for inhalation (Spiriva Respimat) docusate sodium 100 mg capsule 100 mg PO QID PRN contipation 09/09/23 05/20/24 History levetiracetam 1,000 mg tablet 1,000 mg PO BID #60 tabs 09/11/23 05/20/24 Rx (Keppra) magnesium oxide 400 mg (241.3 mg 400 mg PO BID #60 tabs 09/11/23 05/20/24 Rx magnesium) tablet pantoprazole 40 mg tablet,delayed 40 mg PO DAILY #30 tabs 05/13/24 05/20/24 Rx release (Protonix) promethazine 6.25 mg/5 mL oral 6.25 mg (5 mL) PO TID PRN nausea 05/13/24 05/20/24 Rx syrup and vomiting #120 mL cetirizine 10 mg tablet 10 mg PO DAILY 05/20/24 05/20/24 History fenofibrate 160 mg tablet 160 mg PO DAILY 05/20/24 05/20/24 History ondansetron HCl 8 mg tablet 8 mg PO Q8H PRN Nausea 05/20/24 05/20/24 History potassium chloride 10 mEq 10 meq PO BID 05/20/24 05/20/24 History tablet,extended release(part/cryst) sennosides 8.6 mg tablet (senna) 8.6 mg PO BID 05/20/24 05/20/24 History Patient History Medical History Anemia Muscle spasm Brain metastasis Right arm weakness Brain lesion Anxiety Allergic rhinitis Depression GERD (gastroesophageal reflux disease) COPD (chronic obstructive pulmonary disease) Hyperlipidemia Hypertension Surgical History H/O craniotomy 06/05/23 - History of surgery For right arm fracture S/P hysterectomy Family History Mother , age 69 of liver cancer Liver cancer Father , in his early 70s Myocardial infarction Temporary pacemaker Brother Myocardial infarction Sister Stroke Hypertension Daughter No problems noted. 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 How many Children do You have: 1 Other Information That Helps Us Care for You: No Feels Safe at Home: Yes Safety Concerns: Feels Safe At This Time Diet: regular caffeine: Yes (1 cup/day) during the past year weight has: remained stable Assistive Devices: Cane, Walker and Other Review of Systems Review of Systems: Unobtainable due to cognitive status Physical Exam Constitutional: + ill appearing, + altered mental status , + frail appearing, + disheveled and + lethargic Eyes: PERRL ENMT: MM dry Neck: trachea midline, no thyromegaly Respiratory: normal respiratory effort, + cough and symmetric chest movement Auscultation: + diminished lung sounds Cardiovascular: Rate/Rhythm: regular rate and regular rhythm Gastrointestinal (Abdomen): soft, non tender, BS+ Musculoskeletal: gen weakness bilat mittens Skin: cool, papery/dry Neurologic: lethargic Results & Data Vital Signs (Past 12 Hours) Vital Signs Temp Pulse Resp BP Pulse Ox 05/28/24 10:30 94/59 L 05/28/24 10:21 37.2 C 84 24 97 05/28/24 10:16 99/62 L 05/28/24 10:16 99/62 L 05/28/24 09:54 37.2 C 84 18 98 05/28/24 09:45 98/55 L 05/28/24 09:45 98/55 L 05/28/24 09:45 98/55 L 05/28/24 09:36 37.2 C 84 19 99 05/28/24 09:15 105/66 05/28/24 09:15 105/66 05/28/24 09:15 105/66 05/28/24 09:12 37.2 C 87 29 H 97 05/28/24 09:00 111/69 05/28/24 09:00 37.1 C 87 17 99 05/28/24 08:45 37.1 C 81 16 98 05/28/24 08:45 104/47 L 05/28/24 08:45 104/47 L 05/28/24 08:30 99/68 L 05/28/24 08:30 99/68 L 05/28/24 08:30 99/68 L 05/28/24 08:21 37.1 C 89 16 97 05/28/24 08:15 96/55 L 05/28/24 08:15 96/55 L 05/28/24 08:06 37.1 C 79 14 98 05/28/24 08:03 37.1 C 81 16 98 05/28/24 08:00 92/57 L 05/28/24 08:00 92/57 L 05/28/24 08:00 92/57 L 05/28/24 08:00 92/57 L 05/28/24 07:45 105/62 05/28/24 07:45 105/62 05/28/24 07:45 105/62 05/28/24 07:30 110/66 05/28/24 07:30 37.1 C 88 20 100 05/28/24 07:15 116/72 05/28/24 07:15 116/72 05/28/24 07:15 116/72 05/28/24 07:15 37.0 C 96 H 21 100 05/28/24 07:03 37.1 C 94 H 16 98 05/28/24 07:00 97/64 L 05/28/24 07:00 97/64 L 05/28/24 07:00 97/64 L 05/28/24 07:00 97/64 L 05/28/24 06:48 37.1 C 92 H 23 98 05/28/24 06:45 97/58 L 05/28/24 06:45 97/58 L 05/28/24 06:45 37.2 C 87 19 99 05/28/24 06:30 96/74 L 05/28/24 06:27 37.2 C 87 18 99 05/28/24 06:15 116/64 05/28/24 06:12 37.2 C 92 H 16 97 05/28/24 06:06 37.2 C 95 H 18 98 05/28/24 06:00 108/66 05/28/24 05:54 37.1 C 88 18 98 05/28/24 05:45 107/72 05/28/24 05:36 37.0 C 104 H 17 97 05/28/24 05:31 107/67 05/28/24 05:31 107/67 05/28/24 05:31 107/67 05/28/24 05:30 37.0 C 102 H 18 98 05/28/24 05:27 37.0 C 102 H 22 98 05/28/24 05:15 111/75 05/28/24 05:06 37.2 C 89 14 94 05/28/24 05:03 37.2 C 88 13 94 05/28/24 05:00 90/55 L 05/28/24 05:00 90/55 L 05/28/24 04:54 37.2 C 83 14 95 05/28/24 04:48 37.2 C 83 20 98 05/28/24 04:45 109/64 05/28/24 04:45 109/64 05/28/24 04:45 109/64 05/28/24 04:45 109/64 05/28/24 04:42 37.2 C 88 28 H 97 05/28/24 04:30 102/65 05/28/24 04:30 37.3 C 81 14 98 05/28/24 04:27 37.3 C 82 16 98 05/28/24 04:03 37.3 C 89 16 99 05/28/24 04:00 109/65 05/28/24 04:00 109/65 05/28/24 04:00 109/65 05/28/24 03:51 37.2 C 95 H 17 100 05/28/24 03:48 37.2 C 93 H 16 97 05/28/24 03:45 100/57 L 05/28/24 03:45 100/57 L 05/28/24 03:36 102/56 L 05/28/24 03:36 102/56 L 05/28/24 03:36 102/56 L 05/28/24 03:36 37.3 C 97 H 23 99 05/28/24 03:18 37.3 C 85 17 99 05/28/24 03:15 93/57 L 05/28/24 03:15 93/57 L 05/28/24 03:15 93/57 L 05/28/24 03:12 37.3 C 91 H 16 99 Laboratory Results 05/28/24 05/28/24 05/28/24 Range/Units 11:43 05:48 04:01 WBC 8.73 (4.8-10.8) K/ul RBC 3.08 L (4.20-5.40) M/uL Hgb 9.7 L D (12.0-16.0) g/dl POC Hgb (12.0-16.0) g/dl Hct 29.1 L (37.0-47.0) % POC Hct (37-47) % MCV 94.5 (80.0-100.0) fL MCH 31.5 (25.0-34.0) pg MCHC 33.3 (32.0-36.0) g/dL RDW Std Deviation 43.6 (36.4-46.3) fL RDW Coeff of Micheal 12.7 (11.5-14.5) % Plt Count 290 (130-400) K/uL MPV 9.1 L (9.4-12.4) fL Immature Gran % (Auto) 0.3 % Neut % (Auto) 80.1 % Lymph % (Auto) 7.0 % [place] % (Auto) 11.8 % Eos % (Auto) 0.3 % Baso % (Auto) 0.5 % Neut # (Auto) 6.99 H (1.40-6.50) K/uL Lymph # (Auto) 0.61 L (1.20-3.40) K/uL [place] # (Auto) 1.03 H (0.11-0.59) K/uL Eos # (Auto) 0.03 (0.00-0.50) K/uL Baso # (Auto) 0.04 (0.00-0.20) K/uL Immature Gran # (Auto) 0.03 (0.01-0.20) K/uL PT 12.1 H (9.0-12.0) Seconds INR 1.1 (0.9-1.1) APTT 38 H (21-31) Seconds PTT Ratio 1.4 POC pH (7.35-7.45) POC pCO2 (35-46) mmHg POC pO2 (80-95) mmHg POC HCO3 (19-24) keke/L POC Total CO2 (24-31) mmol/L POC Base Excess (-9-1.8) keke/L POC ABG O2 Sat (90-95) % VBG pH 7.26 L (7.36-7.41) VBG pCO2 36 L (38-50) mmHg VBG pO2 53 mmHg VBG HCO3 16 mmol/L VBG O2 Saturation 84.5 % VBG Base Excess -10.0 mEq/L POC Sodium (135-144) mmol/L Sodium 138 (136-145) mmol/L POC Potassium (3.3-5.0) mmol/L Potassium 3.8 (3.5-5.1) mmol/L Chloride 108 H (98-107) mmol/L Carbon Dioxide 16 L (21-32) mmol/L Anion Gap 14 H (3-11) BUN 27 H (6-23) mg/dl Creatinine 3.09 H (0.6-1.2) mg/dl Est Cr Clr Drug Dosing 12.8 ml/min eGFR 16.25 BUN/Creatinine Ratio 8.7 L (10-20) Glucose 173 H (70-99(Fasting)) mg/dl POC Glucose 155 H 177 H (70-99) mg/dl Lactate 1.0 (0.4-2.0) mmol/L Calcium 8.2 L (8.6-10.3) mg/dl Magnesium 2.6 H (1.7-2.4) mg/dl Total Bilirubin 0.4 (0.2-1.0) mg/dl AST 20 (13-39) U/L ALT 18 (7-52) U/L Alkaline Phosphatase 27 L (34-104) U/L Troponin I High Sens 70.1 H* D (0-14) pg/ml Total Protein 5.6 L D (6.0-8.3) gm/dl Albumin 3.3 L (3.4-5.0) gm/dl Globulin 2.3 L (2.5-4.0) gm/dl Albumin/Globulin Ratio 1.4 (0.9-2) Lipase (11-82) U/L Procalcitonin (0-0.5) ng/ml Random Cortisol mcg/dl Urine Color Urine Appearance (Clear) Urine pH (4.5-7.5) Ur Specific [place] (1.000-1.030) Urine Protein (Negative) Urine Glucose (UA) (Negative) Urine Ketones (Negative) Urine Blood (Negative) Urine Nitrite (Negative) Urine Bilirubin (Negative) Urine Urobilinogen (Negative) Ur Leukocyte Esterase (Negative) Urine WBC (Auto) (0-5) /hpf Urine RBC (Auto) (0-2) /hpf U Hyaline Cast (Auto) (0-2) /lpf U Epithel Cells (Auto) (0-2) /hpf Urine Bacteria (Auto) (None Seen) Calcium Oxalate Crystal (None Prsent) Nasal Screen MRSA (PCR) (Negative) Stl C. diff Tox B Gene (Neg) Adenovirus (PCR) (NotDetected) B. pertussis DNA (PCR) (NotDetected) B.parapertussis DNA PCR (NotDetected) C. pneumoniae DNA (PCR) (NotDetected) Coronavirus OC43 (PCR) (NotDetected) Coronavirus HKU1 (PCR) (NotDetected) Coronavirus 229E (PCR) (NotDetected) SARS-CoV-2 (PCR) (NotDetected) Coronavirus NL63 (PCR) (NotDetected) Human Metapneumovir PCR (NotDetected) Influenza Type A (PCR) (NotDetected) Influenza Type B (PCR) (NotDetected) M. pneumoniae (PCR) (NotDetected) Parainfluenza 1 (PCR) (NotDetected) Parainfluenza 2 (PCR) (NotDetected) Parainfluenza 3 (PCR) (NotDetected) Parainfluenza 4 (PCR) (NotDetected) RSV (PCR) (NotDetected) Entero/Rhino (PCR) (NotDetected) 05/28/24 05/28/24 05/27/24 Range/Units 01:22 01:19 Unknown WBC (4.8-10.8) K/ul RBC (4.20-5.40) M/uL Hgb (12.0-16.0) g/dl POC Hgb (12.0-16.0) g/dl Hct (37.0-47.0) % POC Hct (37-47) % MCV (80.0-100.0) fL MCH (25.0-34.0) pg MCHC (32.0-36.0) g/dL RDW Std Deviation (36.4-46.3) fL RDW Coeff of Micheal (11.5-14.5) % Plt Count (130-400) K/uL MPV (9.4-12.4) fL Immature Gran % (Auto) % Neut % (Auto) % Lymph % (Auto) % [place] % (Auto) % Eos % (Auto) % Baso % (Auto) % Neut # (Auto) (1.40-6.50) K/uL Lymph # (Auto) (1.20-3.40) K/uL [place] # (Auto) (0.11-0.59) K/uL Eos # (Auto) (0.00-0.50) K/uL Baso # (Auto) (0.00-0.20) K/uL Immature Gran # (Auto) (0.01-0.20) K/uL PT (9.0-12.0) Seconds INR (0.9-1.1) APTT (21-31) Seconds PTT Ratio POC pH (7.35-7.45) POC pCO2 (35-46) mmHg POC pO2 (80-95) mmHg POC HCO3 (19-24) keke/L POC Total CO2 (24-31) mmol/L POC Base Excess (-9-1.8) keke/L POC ABG O2 Sat (90-95) % VBG pH (7.36-7.41) VBG pCO2 (38-50) mmHg VBG pO2 mmHg VBG HCO3 mmol/L VBG O2 Saturation % VBG Base Excess mEq/L POC Sodium (135-144) mmol/L Sodium (136-145) mmol/L POC Potassium (3.3-5.0) mmol/L Potassium (3.5-5.1) mmol/L Chloride (98-107) mmol/L Carbon Dioxide (21-32) mmol/L Anion Gap (3-11) BUN (6-23) mg/dl Creatinine (0.6-1.2) mg/dl Est Cr Clr Drug Dosing ml/min eGFR BUN/Creatinine Ratio (10-20) Glucose (70-99(Fasting)) mg/dl POC Glucose 157 H (70-99) mg/dl Lactate (0.4-2.0) mmol/L Calcium (8.6-10.3) mg/dl Magnesium (1.7-2.4) mg/dl Total Bilirubin (0.2-1.0) mg/dl AST (13-39) U/L ALT (7-52) U/L Alkaline Phosphatase (34-104) U/L Troponin I High Sens (0-14) pg/ml Total Protein (6.0-8.3) gm/dl Albumin (3.4-5.0) gm/dl Globulin (2.5-4.0) gm/dl Albumin/Globulin Ratio (0.9-2) Lipase (11-82) U/L Procalcitonin (0-0.5) ng/ml Random Cortisol mcg/dl Urine Color Yellow Urine Appearance Turbid A (Clear) Urine pH 5.5 (4.5-7.5) Ur Specific [place] 1.020 (1.000-1.030) Urine Protein 3+ H (Negative) Urine Glucose (UA) Trace H (Negative) Urine Ketones 1+ H (Negative) Urine Blood 2+ H (Negative) Urine Nitrite Negative (Negative) Urine Bilirubin Negative (Negative) Urine Urobilinogen Negative (Negative) Ur Leukocyte Esterase Trace H (Negative) Urine WBC (Auto) 11-20 H (0-5) /hpf Urine RBC (Auto) >20 H (0-2) /hpf U Hyaline Cast (Auto) >20 H (0-2) /lpf U Epithel Cells (Auto) >20 H (0-2) /hpf Urine Bacteria (Auto) 2+ H (None Seen) Calcium Oxalate Crystal Present A (None Prsent) Nasal Screen MRSA (PCR) Negative (Negative) Stl C. diff Tox B Gene Negative Cdiff Gene (Neg) Adenovirus (PCR) (NotDetected) B. pertussis DNA (PCR) (NotDetected) B.parapertussis DNA PCR (NotDetected) C. pneumoniae DNA (PCR) (NotDetected) Coronavirus OC43 (PCR) (NotDetected) Coronavirus HKU1 (PCR) (NotDetected) Coronavirus 229E (PCR) (NotDetected) SARS-CoV-2 (PCR) (NotDetected) Coronavirus NL63 (PCR) (NotDetected) Human Metapneumovir PCR (NotDetected) Influenza Type A (PCR) (NotDetected) Influenza Type B (PCR) (NotDetected) M. pneumoniae (PCR) (NotDetected) Parainfluenza 1 (PCR) (NotDetected) Parainfluenza 2 (PCR) (NotDetected) Parainfluenza 3 (PCR) (NotDetected) Parainfluenza 4 (PCR) (NotDetected) RSV (PCR) (NotDetected) Entero/Rhino (PCR) (NotDetected) 05/27/24 05/27/24 05/27/24 Range/Units 22:56 21:28 21:27 WBC (4.8-10.8) K/ul RBC (4.20-5.40) M/uL Hgb (12.0-16.0) g/dl POC Hgb 16.3 H (12.0-16.0) g/dl Hct (37.0-47.0) % POC Hct 48 H (37-47) % MCV (80.0-100.0) fL MCH (25.0-34.0) pg MCHC (32.0-36.0) g/dL RDW Std Deviation (36.4-46.3) fL RDW Coeff of Micheal (11.5-14.5) % Plt Count (130-400) K/uL MPV (9.4-12.4) fL Immature Gran % (Auto) % Neut % (Auto) % Lymph % (Auto) % [place] % (Auto) % Eos % (Auto) % Baso % (Auto) % Neut # (Auto) (1.40-6.50) K/uL Lymph # (Auto) (1.20-3.40) K/uL [place] # (Auto) (0.11-0.59) K/uL Eos # (Auto) (0.00-0.50) K/uL Baso # (Auto) (0.00-0.20) K/uL Immature Gran # (Auto) (0.01-0.20) K/uL PT (9.0-12.0) Seconds INR (0.9-1.1) APTT (21-31) Seconds PTT Ratio POC pH 7.24 L (7.35-7.45) POC pCO2 30 L (35-46) mmHg POC pO2 116 H (80-95) mmHg POC HCO3 13 L (19-24) keke/L POC Total CO2 14 L (24-31) mmol/L POC Base Excess -15.0 L (-9-1.8) keke/L POC ABG O2 Sat 98.0 H (90-95) % VBG pH (7.36-7.41) VBG pCO2 (38-50) mmHg VBG pO2 mmHg VBG HCO3 mmol/L VBG O2 Saturation % VBG Base Excess mEq/L POC Sodium 141 (135-144) mmol/L Sodium 139 (136-145) mmol/L POC Potassium 3.9 (3.3-5.0) mmol/L Potassium 3.8 (3.5-5.1) mmol/L Chloride 109 H (98-107) mmol/L Carbon Dioxide 15 L (21-32) mmol/L Anion Gap 15 H (3-11) BUN 29 H (6-23) mg/dl Creatinine 3.34 H D (0.6-1.2) mg/dl Est Cr Clr Drug Dosing 11.9 ml/min eGFR 14.80 BUN/Creatinine Ratio 8.7 L (10-20) Glucose 172 H (70-99(Fasting)) mg/dl POC Glucose (70-99) mg/dl Lactate 2.1 H* (0.4-2.0) mmol/L Calcium 7.9 L D (8.6-10.3) mg/dl Magnesium 1.8 (1.7-2.4) mg/dl Total Bilirubin (0.2-1.0) mg/dl AST (13-39) U/L ALT (7-52) U/L Alkaline Phosphatase (34-104) U/L Troponin I High Sens (0-14) pg/ml Total Protein (6.0-8.3) gm/dl Albumin (3.4-5.0) gm/dl Globulin (2.5-4.0) gm/dl Albumin/Globulin Ratio (0.9-2) Lipase (11-82) U/L Procalcitonin (0-0.5) ng/ml Random Cortisol 12.93 mcg/dl Urine Color Urine Appearance (Clear) Urine pH (4.5-7.5) Ur Specific [place] (1.000-1.030) Urine Protein (Negative) Urine Glucose (UA) (Negative) Urine Ketones (Negative) Urine Blood (Negative) Urine Nitrite (Negative) Urine Bilirubin (Negative) Urine Urobilinogen (Negative) Ur Leukocyte Esterase (Negative) Urine WBC (Auto) (0-5) /hpf Urine RBC (Auto) (0-2) /hpf U Hyaline Cast (Auto) (0-2) /lpf U Epithel Cells (Auto) (0-2) /hpf Urine Bacteria (Auto) (None Seen) Calcium Oxalate Crystal (None Prsent) Nasal Screen MRSA (PCR) (Negative) Stl C. diff Tox B Gene (Neg) Adenovirus (PCR) (NotDetected) B. pertussis DNA (PCR) (NotDetected) B.parapertussis DNA PCR (NotDetected) C. pneumoniae DNA (PCR) (NotDetected) Coronavirus OC43 (PCR) (NotDetected) Coronavirus HKU1 (PCR) (NotDetected) Coronavirus 229E (PCR) (NotDetected) SARS-CoV-2 (PCR) (NotDetected) Coronavirus NL63 (PCR) (NotDetected) Human Metapneumovir PCR (NotDetected) Influenza Type A (PCR) (NotDetected) Influenza Type B (PCR) (NotDetected) M. pneumoniae (PCR) (NotDetected) Parainfluenza 1 (PCR) (NotDetected) Parainfluenza 2 (PCR) (NotDetected) Parainfluenza 3 (PCR) (NotDetected) Parainfluenza 4 (PCR) (NotDetected) RSV (PCR) (NotDetected) Entero/Rhino (PCR) (NotDetected) 05/27/24 05/27/24 05/27/24 Range/Units 21:13 19:47 19:25 WBC (4.8-10.8) K/ul RBC (4.20-5.40) M/uL Hgb (12.0-16.0) g/dl POC Hgb (12.0-16.0) g/dl Hct (37.0-47.0) % POC Hct (37-47) % MCV (80.0-100.0) fL MCH (25.0-34.0) pg MCHC (32.0-36.0) g/dL RDW Std Deviation (36.4-46.3) fL RDW Coeff of Micheal (11.5-14.5) % Plt Count (130-400) K/uL MPV (9.4-12.4) fL Immature Gran % (Auto) % Neut % (Auto) % Lymph % (Auto) % [place] % (Auto) % Eos % (Auto) % Baso % (Auto) % Neut # (Auto) (1.40-6.50) K/uL Lymph # (Auto) (1.20-3.40) K/uL [place] # (Auto) (0.11-0.59) K/uL Eos # (Auto) (0.00-0.50) K/uL Baso # (Auto) (0.00-0.20) K/uL Immature Gran # (Auto) (0.01-0.20) K/uL PT (9.0-12.0) Seconds INR (0.9-1.1) APTT (21-31) Seconds PTT Ratio POC pH (7.35-7.45) POC pCO2 (35-46) mmHg POC pO2 (80-95) mmHg POC HCO3 (19-24) keke/L POC Total CO2 (24-31) mmol/L POC Base Excess (-9-1.8) keke/L POC ABG O2 Sat (90-95) % VBG pH (7.36-7.41) VBG pCO2 (38-50) mmHg VBG pO2 mmHg VBG HCO3 mmol/L VBG O2 Saturation % VBG Base Excess mEq/L POC Sodium (135-144) mmol/L Sodium (136-145) mmol/L POC Potassium (3.3-5.0) mmol/L Potassium (3.5-5.1) mmol/L Chloride (98-107) mmol/L Carbon Dioxide (21-32) mmol/L Anion Gap (3-11) BUN (6-23) mg/dl Creatinine (0.6-1.2) mg/dl Est Cr Clr Drug Dosing ml/min eGFR BUN/Creatinine Ratio (10-20) Glucose (70-99(Fasting)) mg/dl POC Glucose 151 H (70-99) mg/dl Lactate (0.4-2.0) mmol/L Calcium (8.6-10.3) mg/dl Magnesium (1.7-2.4) mg/dl Total Bilirubin (0.2-1.0) mg/dl AST (13-39) U/L ALT (7-52) U/L Alkaline Phosphatase (34-104) U/L Troponin I High Sens 37.4 H (0-14) pg/ml Total Protein (6.0-8.3) gm/dl Albumin (3.4-5.0) gm/dl Globulin (2.5-4.0) gm/dl Albumin/Globulin Ratio (0.9-2) Lipase (11-82) U/L Procalcitonin (0-0.5) ng/ml Random Cortisol mcg/dl Urine Color Urine Appearance (Clear) Urine pH (4.5-7.5) Ur Specific [place] (1.000-1.030) Urine Protein (Negative) Urine Glucose (UA) (Negative) Urine Ketones (Negative) Urine Blood (Negative) Urine Nitrite (Negative) Urine Bilirubin (Negative) Urine Urobilinogen (Negative) Ur Leukocyte Esterase (Negative) Urine WBC (Auto) (0-5) /hpf Urine RBC (Auto) (0-2) /hpf U Hyaline Cast (Auto) (0-2) /lpf U Epithel Cells (Auto) (0-2) /hpf Urine Bacteria (Auto) (None Seen) Calcium Oxalate Crystal (None Prsent) Nasal Screen MRSA (PCR) (Negative) Stl C. diff Tox B Gene (Neg) Adenovirus (PCR) Not Detected (NotDetected) B. pertussis DNA (PCR) Not Detected (NotDetected) B.parapertussis DNA PCR Not Detected (NotDetected) C. pneumoniae DNA (PCR) Not Detected (NotDetected) Coronavirus OC43 (PCR) Not Detected (NotDetected) Coronavirus HKU1 (PCR) Not Detected (NotDetected) Coronavirus 229E (PCR) Not Detected (NotDetected) SARS-CoV-2 (PCR) Not Detected (NotDetected) Coronavirus NL63 (PCR) Not Detected (NotDetected) Human Metapneumovir PCR Not Detected (NotDetected) Influenza Type A (PCR) Not Detected (NotDetected) Influenza Type B (PCR) Not Detected (NotDetected) M. pneumoniae (PCR) Not Detected (NotDetected) Parainfluenza 1 (PCR) Not Detected (NotDetected) Parainfluenza 2 (PCR) Not Detected (NotDetected) Parainfluenza 3 (PCR) Not Detected (NotDetected) Parainfluenza 4 (PCR) Not Detected (NotDetected) RSV (PCR) Not Detected (NotDetected) Entero/Rhino (PCR) Not Detected (NotDetected) 05/27/24 Range/Units 16:52 WBC 16.35 H (4.8-10.8) K/ul RBC 4.87 (4.20-5.40) M/uL Hgb 15.4 (12.0-16.0) g/dl POC Hgb (12.0-16.0) g/dl Hct 46.8 (37.0-47.0) % POC Hct (37-47) % MCV 96.1 (80.0-100.0) fL MCH 31.6 (25.0-34.0) pg MCHC 32.9 (32.0-36.0) g/dL RDW Std Deviation 44.7 (36.4-46.3) fL RDW Coeff of Micheal 12.6 (11.5-14.5) % Plt Count 466 H (130-400) K/uL MPV 9.8 (9.4-12.4) fL Immature Gran % (Auto) 0.5 % Neut % (Auto) 70.5 % Lymph % (Auto) 14.3 % [place] % (Auto) 13.9 % Eos % (Auto) 0.2 % Baso % (Auto) 0.6 % Neut # (Auto) 11.54 H (1.40-6.50) K/uL Lymph # (Auto) 2.33 (1.20-3.40) K/uL [place] # (Auto) 2.27 H (0.11-0.59) K/uL Eos # (Auto) 0.04 (0.00-0.50) K/uL Baso # (Auto) 0.09 (0.00-0.20) K/uL Immature Gran # (Auto) 0.08 (0.01-0.20) K/uL PT 12.5 H (9.0-12.0) Seconds INR 1.2 H (0.9-1.1) APTT (21-31) Seconds PTT Ratio POC pH (7.35-7.45) POC pCO2 (35-46) mmHg POC pO2 (80-95) mmHg POC HCO3 (19-24) keke/L POC Total CO2 (24-31) mmol/L POC Base Excess (-9-1.8) keke/L POC ABG O2 Sat (90-95) % VBG pH (7.36-7.41) VBG pCO2 (38-50) mmHg VBG pO2 mmHg VBG HCO3 mmol/L VBG O2 Saturation % VBG Base Excess mEq/L POC Sodium (135-144) mmol/L Sodium 142 (136-145) mmol/L POC Potassium (3.3-5.0) mmol/L Potassium 3.9 (3.5-5.1) mmol/L Chloride 99 (98-107) mmol/L Carbon Dioxide 14 L (21-32) mmol/L Anion Gap 29 H (3-11) BUN 31 H (6-23) mg/dl Creatinine 4.08 H (0.6-1.2) mg/dl Est Cr Clr Drug Dosing 9.7 ml/min eGFR 11.64 BUN/Creatinine Ratio 7.6 L (10-20) Glucose 116 H (70-99(Fasting)) mg/dl POC Glucose (70-99) mg/dl Lactate 4.3 H* (0.4-2.0) mmol/L Calcium 11.6 H (8.6-10.3) mg/dl Magnesium 1.5 L (1.7-2.4) mg/dl Total Bilirubin 0.5 (0.2-1.0) mg/dl AST 33 (13-39) U/L ALT 33 (7-52) U/L Alkaline Phosphatase 36 (34-104) U/L Troponin I High Sens 31.1 H (0-14) pg/ml Total Protein 8.1 (6.0-8.3) gm/dl Albumin 4.7 (3.4-5.0) gm/dl Globulin 3.4 (2.5-4.0) gm/dl Albumin/Globulin Ratio 1.4 (0.9-2) Lipase 25 (11-82) U/L Procalcitonin 2.25 H (0-0.5) ng/ml Random Cortisol mcg/dl Urine Color Urine Appearance (Clear) Urine pH (4.5-7.5) Ur Specific [place] (1.000-1.030) Urine Protein (Negative) Urine Glucose (UA) (Negative) Urine Ketones (Negative) Urine Blood (Negative) Urine Nitrite (Negative) Urine Bilirubin (Negative) Urine Urobilinogen (Negative) Ur Leukocyte Esterase (Negative) Urine WBC (Auto) (0-5) /hpf Urine RBC (Auto) (0-2) /hpf U Hyaline Cast (Auto) (0-2) /lpf U Epithel Cells (Auto) (0-2) /hpf Urine Bacteria (Auto) (None Seen) Calcium Oxalate Crystal (None Prsent) Nasal Screen MRSA (PCR) (Negative) Stl C. diff Tox B Gene (Neg) Adenovirus (PCR) (NotDetected) B. pertussis DNA (PCR) (NotDetected) B.parapertussis DNA PCR (NotDetected) C. pneumoniae DNA (PCR) (NotDetected) Coronavirus OC43 (PCR) (NotDetected) Coronavirus HKU1 (PCR) (NotDetected) Coronavirus 229E (PCR) (NotDetected) SARS-CoV-2 (PCR) (NotDetected) Coronavirus NL63 (PCR) (NotDetected) Human Metapneumovir PCR (NotDetected) Influenza Type A (PCR) (NotDetected) Influenza Type B (PCR) (NotDetected) M. pneumoniae (PCR) (NotDetected) Parainfluenza 1 (PCR) (NotDetected) Parainfluenza 2 (PCR) (NotDetected) Parainfluenza 3 (PCR) (NotDetected) Parainfluenza 4 (PCR) (NotDetected) RSV (PCR) (NotDetected) Entero/Rhino (PCR) (NotDetected) Diagnostic Findings Abdomen/Pelvis CT 05/27/24 17:24 Exam(s): CT ABDOMEN + PELVIS Without Contrast EXAM: CT Abdomen and Pelvis Without Intravenous Contrast CLINICAL HISTORY: Reason for exam: abd pain; N/V/D; hx of cancer. TECHNIQUE: Axial computed tomography images of the abdomen and pelvis without intravenous contrast. CTDI is 45.3 mGy and DLP is 885.62 mGy-cm. Automated exposure control was utilized for the study. A dose lowering technique was utilized adhering to the principles of ALARA. COMPARISON: No relevant prior studies available. FINDINGS: Lung bases: Unremarkable. No mass. No consolidation. Mediastinum: There is a 1 cm circumferential thickening of the wall of the distal esophagus suggesting esophagitis. No hiatal hernia. ABDOMEN: Liver: Unremarkable. Gallbladder and bile ducts: Unremarkable. No calcified stones. No ductal dilation. Pancreas: Unremarkable. No ductal dilation. Spleen: Unremarkable. No splenomegaly. Adrenals: Unremarkable. No mass. Kidneys and ureters: There is a 1.7 cm simple cyst in the left kidney. No follow-up is required. No hydronephrosis or ureterolithiasis is seen involving either kidney. Stomach and bowel: See below. PELVIS: Appendix: The appendix is normal. There are multiple scattered gas fluid levels throughout distended but nondilated loops of large and small bowel suggesting ileus and/or enteritis. No focal bowel wall thickening or inflammation is seen. No pneumoperitoneum, free fluid, or abscess. Bladder: Unremarkable. No stones. Reproductive: Unremarkable as visualized. ABDOMEN and PELVIS: Intraperitoneal space: The uterus is absent. No free fluid in the pelvis. Bones/joints: Mild multilevel degenerative changes throughout the spine. No acute fracture or subluxation. Soft tissues: Unremarkable. Vasculature: The abdominal aorta is mildly calcified but nondilated. Lymph nodes: Unremarkable. No enlarged lymph nodes. IMPRESSION: 1. The appendix is normal. There are multiple scattered gas fluid levels throughout distended but nondilated loops of large and small bowel suggesting ileus and/or enteritis. No focal bowel wall thickening or inflammation is seen. No pneumoperitoneum, free fluid, or abscess. 2. No hydronephrosis or ureterolithiasis is seen involving either kidney. 3. There is a 1 cm circumferential thickening of the wall of the distal esophagus suggesting esophagitis. No hiatal hernia. Electronically signed by: Peter Castaneda MD 05/27/24 20:[address] 05/27/24 17:49 CT head/brain wo con CLINICAL HISTORY: vomiting; hx of metastatic cancer Technique: Contiguous axial CT images of the head were acquired from the base of the skull to the vertex without intravenous contrast administration. Images were viewed in brain, subdural and bone windows. Automated dose lowering techniques and/or adjustment according to patient size were utilized for this exam. Comparison: Comparison is made to CT head 05/20/2024 Findings: The ventricles, basal cisterns, and cerebral sulci are normal. There is no acute intracranial hemorrhage or evidence of acute territorial infarction. Neither mass effect, shift of the midline structures, nor abnormal extra-axial fluid collections are shown. Encephalomalacia in the left frontal lobe is again seen. Imaged portions of the paranasal sinuses and mastoid air cells are clear. The orbits appear normal. Postsurgical changes of frontal craniectomy are seen. Impression: No acute abnormalities. No evidence of vasogenic edema to suggest metastasis. Post surgical changes in the left frontal lobe. ACT 112: Negative or not required by law. Electronically signed by: Byron Jain M.D. 05/27/2024 6:50 PM Chest X-Ray 05/27/24 19:24 SINGLE VIEW CHEST CLINICAL HISTORY: Sepsis FINDINGS: An AP, portable, upright chest radiograph is compared to study dated 05/20/2024 and correlated with chest CT dated 06/01/2023. The cardiomediastinal silhouette is unremarkable. Emphysema and chronic interstitial thickening is similar to previous. There is mild bibasilar scarring/atelectasis. No airspace consolidation or pleural effusion is identified. No pneumothorax is seen. The skeletal structures are osteopenic. The bony thorax is grossly intact. IMPRESSION: Emphysematous change with no active disease in the chest. ACT 112: Negative or not required by law. Electronically signed by: Da Lucia M.D. 05/27/2024 10:08 PM Chest X-Ray 05/27/24 23:05 XR chest 1V portable HISTORY: 64 years-old Female Central line placement status post placement of a right IJ central venous catheter COMPARISON: 05/27/2024 TECHNIQUE: AP view of the chest FINDINGS: Status post placement of a right IJ central venous catheter with distal tip in the expected location of the mid SVC. No pneumothorax. Pulmonary vascular congestion. Heart size is unchanged. No large pleural effusion or airspace consolidation. There is unchanged interstitial coarsening. Pulmonary emphysema. IMPRESSION: Status post placement of a right IJ central venous catheter. No postprocedural pneumothorax. ACT 112: Negative or not required by law. The above report was generated using voice recognition software. It may contain grammatical, syntax or spelling errors. Electronically signed by: Drake Maxwell M.D. 05/28/2024 7:15 AM PG Care Time/CCT Total # of Minutes Spent Total Time Spent: 60 Total Time Spent with Patient: Total time spent is greater than 50% in coordination of care (as documented) at patient's floor/unit and/or counseling patient: [place] [address] IN/OBS CONSULT LVL 4,60M Patient Type New History Comprehensive Exam Comprehensive Medical Decision Making High Complexity Diagnoses Generalized weakness R53.1 Altered mental status R41.82 Palliative care by specialist Z51.5
[2024-05-28] MEDS: levETIRAcetam IV 500 MG in SODIUM CHLOR 0.9% MINI-B 100 ML IV SCH (20:47)
[2024-05-29] MEDS: 4.5GM EXT INFUSION IV SCH ×2 (00:23→12:50)
[2024-05-29 04:31] LABS: Basophils # (auto) 0.02 K/uL (0.00-0.20); Basophils % (auto) 0.1 %; Hematocrit (blood only) 24.9 % (37.0-47.0); Hemoglobin 8.6 g/dl (12.0-16.0); Immature Granulocytes % (auto) 0.6 %; Lymphocytes # (auto) 0.62 K/uL (1.20-3.40); Lymphocytes % (auto) 3.8 %; Mean Corpuscular Hemoglobin 31.2 pg (25.0-34.0); Mean Corpuscular Hgb Conc 34.5 g/dL (32.0-36.0); Mean Corpuscular Volume 90.2 fL (80.0-100.0); Mean Platelet Volume 9.4 fL (9.4-12.4); Monocytes # (auto) 1.26 K/uL (0.11-0.59); Monocytes % (auto) 7.7 %; Neutrophils # (auto) 14.41 K/uL (1.40-6.50); Neutrophils % (auto) 87.8 %; Platelet Count 314 K/uL (130-400); RDW Coefficient of Variation 12.4 % (11.5-14.5); RDW Standard Deviation 40.9 fL (36.4-46.3); Red Blood Count 2.76 M/uL (4.20-5.40); White Blood Count 16.41 K/ul (4.8-10.8)
[2024-05-29 04:49] LABS: Albumin Globulin Ratio 1.8 (0.9-2); Albumin Level 3.6 gm/dl (3.4-5.0); BUN Creatinine Ratio 11.2 (10-20); Bilirubin,Total 0.4 mg/dl (0.2-1.0); Calcium 8.3 mg/dl (8.6-10.3); Creatinine Clr Calc Pharmacy 23.3 ml/min; Potassium 3.7 mmol/L (3.5-5.1); Total Protein 5.6 gm/dl (6.0-8.3)
[2024-05-29 05:04] LABS: INR 1.2 (0.9-1.1); Partial Thromboplastin Ratio 1.4; Partial Thromboplastin Time 38 Seconds (21-31); Prothrombin Time 12.4 Seconds (9.0-12.0)
[2024-05-29] MEDS ORDERED: POTASSIUM CHLORIDE / WTR 20 MEQ/100 ML PLCT IV SCH (08:15)
--- NOTE | 2024-05-29 09:26 | Critical Care Progress Note ---
Date of Service May 29, 2024 Assessment & Plan (1) Septic shock: Plan: Reason Critically Ill: 64-year-old female with past medical history of metastatic adenocarcinoma currently undergoing treatment with Keytruda presents to the ICU after 3 days of nausea and vomiting, now hypotensive requiring vasopressor support with possible sepsis. Neuro - [facility] ICU: Positive History of left frontal lobe craniectomy. Patient with baseline dementia/confusion. - She did undergo CT head which was negative for acute intracranial findings Seizure disordercontinue Keppra Cardiac - Shocklikely sepsis, With hypovolemia likely also playing a role in the setting of 3 days of vomiting/diarrhea See ID for treatment of sepsis below -Continue as needed fluid boluses as needed. - Central venous catheter inserted. Titrate Levophed drip to maintain MAP greater than 65 - Follow-up TTE. Previous TTE with grade 1 diastolic dysfunction and normal EF -Echocardiogram 05/28/2024 revealed a normal LVEF of 60 to 65%. No valvular abnormalities. - Hold antihypertensives - Continuous monitoring on telemetry Respiratory - COPDstable. Lungs clear to auscultation and ABG without Hypercapnia or respiratory acidosis - DuoNebs as needed - Continuous monitoring on pulse ox. Currently maintaining oxygen saturation on room air GI - SBO/ileusCT abdomen and pelvis with dilated small bowel loops consistent with ileus. Likely source of abdominal pain. - No active vomiting at this time. Will hold off on NG tube for now and keep n.p.o. Repeat KUB today. - Consider surgical consult if worsening - Speech consult RENAL/LYTES - Acute renal failureAKI resolving with increased urine output. - Likely prerenal considering severe dehydration/hypovolemia with hypotension with sepsis - Foleystrict I's and O's ENDO - No history of diabetes or thyroid disease. ICU hyperglycemic protocol HEME - H&H stable, monitor routine CBC ID - Sepsisunsure of etiology at this time but suspect possible colitis with diarrhea. Patient also underwent treatment for recent UTI. - Continue with zosyn. Vanc d/c'ed as mrsa screen negative - Respiratory BioFire negative, C. difficile negative - Will check stool biofire -Urine and blood cultures pending. LINES/IV ACCESS - Peripheral IVs, CVC right IJ inserted 05/27 DVT PROPHYLAXIS - SCDs, heparin subcu I have personally spent 44 minutes of critical care time in the direct management of this patient. This is a life/limb threatening event. This includes time spent evaluating patient, direct bedside care, chart review, placing orders, interpretation of diagnostic studies, discussion with consultants, patient, and family members, as well as other required patient management activities. This time is exclusive of all separately billable procedures, and teaching time and separate from and in addition to any other critical care service time. Thank you for allowing us to participate in the care of this patient. Please refer to my attending physician's documentation for any further recommendations. (2) Elevated lactic acid level: (3) Non-ST elevation NV (NSTEMI): (4) Acute renal failure: (5) Adenocarcinoma of left lung: (6) Esophagitis: (7) Colitis: Admission and Anticipated Discharge Date Admission Date: May 27, 2024 Subjective Patient seen and examined. She remains on Levophed. She currently has soft mitts of the restraints that she has been pulling at IV lines and remains spontaneous. She is only alert and oriented to herself. She denies any overt complaints at present. Review of Systems Review of Systems: Unobtainable due to cognitive status Physical Exam Constitutional: + frail appearing; no acute distress Eyes: PERRL, conjunctivae normal, anicteric sclerae ENMT: external ear and nose normal, oropharynx normal Neck: trachea midline, no thyromegaly Respiratory: normal respiratory effort, lungs clear to auscultation Cardiovascular: Heart Sounds: normal S1 and normal S2; no murmur Extrem ities: no edema Gastrointestinal (Abdomen): Abdomen soft, tender with palpation generalized in all 4 quadrants. Bowel sounds present all 4 quadrants Musculoskeletal: no cyanosis or clubbing, extremities motor strength 5/5 Skin: no rashes, warm and dry Neurologic: PERRL, EOMI, accommodation nl, no face palsy, no dysarthria Psychiatric: Orientation: oriented to person; + not oriented to place and + not oriented to time Genitourinary: Indwelling Bermudez catheter present, urine concentrated dark yellow Results & Data Results & Data Vital Signs (Past 12 Hours) Vital Signs Temp Pulse Resp BP Pulse Ox O2 Del Method 05/29/24 09:02 109/65 05/29/24 08:57 37.2 C 71 18 85 L 05/29/24 08:54 37.2 C 90 19 97 05/29/24 08:39 37.1 C 72 19 99 05/29/24 08:24 37.3 C 72 17 95 05/29/24 08:16 113/54 L 05/29/24 08:16 113/54 L 05/29/24 08:09 37.3 C 64 15 100 05/29/24 08:08 97/76 L 05/29/24 08:08 97/76 L 05/29/24 08:06 37.3 C 74 16 97 05/29/24 08:03 37.4 C 58 L 14 100 05/29/24 08:00 109/73 05/29/24 08:00 109/73 05/29/24 08:00 70 05/29/24 07:54 37.3 C 57 L 24 100 05/29/24 07:45 37.3 C 68 16 100 05/29/24 07:45 120/70 05/29/24 07:31 122/66 05/29/24 07:30 36.9 C 72 20 100 05/29/24 07:15 124/68 05/29/24 07:00 119/70 05/29/24 07:00 119/70 05/29/24 06:57 37.3 C 54 L 15 100 05/29/24 06:48 37.2 C 69 17 100 05/29/24 06:45 114/56 L 05/29/24 06:39 37.2 C 74 20 96 05/29/24 06:33 37.2 C 65 16 100 05/29/24 06:31 109/84 05/29/24 06:31 109/84 05/29/24 06:24 37.2 C 55 L 16 100 05/29/24 06:18 37.2 C 70 16 100 05/29/24 06:15 116/66 05/29/24 06:00 141/51 H 05/29/24 05:54 37.1 C 60 17 99 05/29/24 05:45 37.1 C 80 21 90 05/29/24 05:33 37.0 C 78 31 H 95 05/29/24 05:31 115/69 05/29/24 05:31 115/69 05/29/24 05:24 37.0 C 106 H 24 82 L 05/29/24 05:21 37.0 C 62 21 100 05/29/24 05:16 125/75 05/29/24 05:16 125/75 05/29/24 05:00 36.9 C 80 23 100 05/29/24 04:36 36.9 C 56 L 21 100 05/29/24 04:03 35.6 C L 73 19 100 05/29/24 04:01 108/54 L 05/29/24 04:00 Room Air 05/29/24 03:51 36.9 C 87 21 99 05/29/24 03:45 115/87 05/29/24 03:42 36.9 C 91 H 23 99 05/29/24 03:32 113/52 L 05/29/24 03:32 113/52 L 05/29/24 03:21 37.0 C 76 18 91 05/29/24 03:17 119/56 L 05/29/24 03:17 119/56 L 05/29/24 03:17 119/56 L 05/29/24 03:09 36.9 C 83 18 95 05/29/24 03:03 36.9 C 81 19 99 05/29/24 02:57 36.9 C 73 19 84 L 05/29/24 02:47 104/74 05/29/24 02:36 36.9 C 87 23 99 05/29/24 02:18 36.9 C 83 19 99 05/29/24 02:16 115/64 05/29/24 02:16 115/64 05/29/24 01:57 36.9 C 76 26 H 77 L 05/29/24 01:51 36.9 C 83 18 99 05/29/24 01:46 144/82 H 05/29/24 01:42 36.8 C 78 19 87 L 05/29/24 01:21 36.8 C 77 17 85 L 05/29/24 01:06 36.8 C 65 18 100 05/29/24 00:54 36.8 C 67 22 89 L 05/29/24 00:47 124/90 05/29/24 00:35 117/69 05/29/24 00:33 36.5 C 79 24 88 L 05/29/24 00:30 36.7 C 82 22 98 05/29/24 00:18 36.9 C 78 16 100 05/29/24 00:17 118/56 L 05/29/24 00:17 118/56 L 05/29/24 00:12 37.0 C 78 18 85 L 05/29/24 00:00 36.9 C 78 19 96 05/29/24 00:00 81 05/28/24 23:57 36.9 C 80 20 100 05/28/24 23:45 119/67 05/28/24 23:45 119/67 05/28/24 23:45 119/67 05/28/24 23:27 37.0 C 82 19 82 L 05/28/24 23:15 37.0 C 90 26 H 100 05/28/24 23:03 36.8 C 80 18 98 05/28/24 23:02 93/78 L 05/28/24 23:02 93/78 L 05/28/24 23:02 93/78 L 05/28/24 23:02 93/78 L 05/28/24 22:57 36.8 C 86 20 99 05/28/24 22:48 36.8 C 82 22 99 05/28/24 22:46 81/59 L 05/28/24 22:46 81/59 L 05/28/24 22:39 36.9 C 80 13 99 05/28/24 22:31 108/73 05/28/24 22:31 108/73 05/28/24 22:30 36.9 C 80 16 94 05/28/24 22:06 37.1 C 85 24 100 05/28/24 22:01 108/69 05/28/24 22:01 108/69 05/28/24 22:00 36.9 C 79 17 96 05/28/24 21:57 36.9 C 76 18 99 05/28/24 21:55 119/71 05/28/24 21:55 119/71 05/28/24 21:55 119/71 05/28/24 21:51 36.9 C 80 24 83 L 05/28/24 21:31 123/83 05/28/24 21:31 123/83 05/28/24 21:30 37.1 C 70 15 100 05/28/24 21:27 37.1 C 78 19 99 Coding Level of Care Code 23214 CRITICAL CARE 1ST 30-74M Diagnoses Septic shock A41.9; R65.21 Elevated lactic acid level R79.89 Non-ST elevation NV (NSTEMI) I21.4 Acute renal failure N17.9 Adenocarcinoma of left lung C34.92 Esophagitis K20.90 Colitis K52.9
[2024-05-29] MEDS: ACETAMINOPHEN 1000 MG/100 ML IV IV PRN (09:56)
[2024-05-29] MEDS ORDERED: ACETAMINOPHEN 10MG/ML Custom 650 MG in EMPTY BAG 0 ML IV PRN (10:14)
--- NOTE | 2024-05-29 13:21 | XRay Report ---
KUB CLINICAL HISTORY: Abdominal distention. FINDINGS: 2 AP, portable, supine abdominal radiographs are correlated with abdominal CT dated 024. There are mildly distended loops of small bowel which measure up to 3.3 cm in diameter. There is no radiographic evidence of high-grade obstruction. A rectal temperature probe is in place. No evide nce of intraperitoneal free air is seen on these supine images. There are no abnormal abdominal calci fications. The skeletal structures are osteopenic and appear intact. There is moderate lumbosacral sp ondylosis. IMPRESSION: Nonspecific bowel gas pattern with mildly distended and gas-filled loops of small bowel. There is no evidence of high-grade obstruction. This is likely unchanged from the recent CT scan. Cor relate clinically. Electronically signed by: Da Lucia M.D. 05/29/2024 1:19 PM
--- NOTE | 2024-05-29 14:12 | Hospitalist Progress Note ---
Date of Service May 29, 2024 Assessment & Plan (1) Admitted to intensive care unit: (2) Septic shock: (3) Acute dehydration: (4) Acute renal failure: (5) Severe sepsis: (6) Esophagitis: (7) Ileus: (8) Enteritis: Plan Septic shock/admitted to intensive care unit- Received 3 L normal saline bolus in the ED Per nurse, Levophed has been turned off Patient is maintaining her blood pressure Source seems to be GI Echocardiogram unremarkable Continue Zosyn C. difficile negative Respiratory bio fire negative Checking stool bio fire CT showed ileus. Repeat KUB showed ileus as well Acute renal failure Secondary to dehydration Improved today with hydration Monitor labs closely Seizure disorder- Changed Keppra from 1000 mg p.o. twice daily to IV twice daily GERD/esophagitis- Placed on pantoprazole IV Palliative care consulted. Admission and Anticipated Discharge Date Admission Date: May 27, 2024 Subjective Patient was seen and examined along with nurse Daniel Gonzalez. He stated that she was just taken off of pressors. He raises no concerns. Patient remains confused. Review of Systems Review of Systems: All systems reviewed & are unremarkable except as noted in Subjective Physical Exam Physical Exam: General: Drowsy and confused. Has mittens on. Cachectic with intercostal and bitemporal muscle wasting Heart: S1, S2/regular rate and rhythm, no murmur rubs or gallops Lungs: Clear to auscultation bilaterally. Normal effort Abdomen: Soft/nondistended. Mild tenderness to palpation mostly in the epigastrium with no rebound, rigidity or guarding. No hepatosplenomegaly Extremities: No clubbing/cyanosis. No edema Behavior: Unable to assess Results & Data Results & Data Vital Signs (Past 12 Hours) Vital Signs Temp Pulse Resp BP Pulse Ox O2 Del Method O2 Del Method 05/29/24 11:26 102/65 05/29/24 11:24 36.2 C L 77 18 96 05/29/24 11:15 18.4 C L 76 25 H 100 05/29/24 11:00 21.2 C L 79 18 94 05/29/24 11:00 112/55 L 05/29/24 10:57 18.5 C L 85 22 91 05/29/24 10:46 106/51 L 05/29/24 10:46 106/51 L 05/29/24 10:33 18.9 C L 56 L 15 100 05/29/24 10:30 107/58 L 05/29/24 10:27 18.3 C L 50 L 12 100 05/29/24 10:00 113/62 05/29/24 10:00 113/62 05/29/24 09:57 37.0 C 70 18 100 05/29/24 09:45 125/60 05/29/24 09:42 37.1 C 56 L 13 100 05/29/24 09:41 125/69 05/29/24 09:41 125/69 05/29/24 09:39 37.0 C 53 L 14 100 05/29/24 09:02 109/65 05/29/24 08:57 37.2 C 71 18 85 L 05/29/24 08:54 37.2 C 90 19 97 05/29/24 08:39 37.1 C 72 19 99 05/29/24 08:24 37.3 C 72 17 95 05/29/24 08:16 113/54 L 05/29/24 08:16 113/54 L 05/29/24 08:09 37.3 C 64 15 100 05/29/24 08:08 97/76 L 05/29/24 08:08 97/76 L 05/29/24 08:06 37.3 C 74 16 97 05/29/24 08:03 37.4 C 58 L 14 100 05/29/24 08:00 Room Air 05/29/24 08:00 109/73 05/29/24 08:00 109/73 05/29/24 08:00 70 05/29/24 07:54 37.3 C 57 L 24 100 05/29/24 07:45 37.3 C 68 16 100 05/29/24 07:45 120/70 05/29/24 07:31 122/66 05/29/24 07:30 36.9 C 72 20 100 05/29/24 07:15 124/68 05/29/24 07:00 119/70 05/29/24 07:00 119/70 05/29/24 06:57 37.3 C 54 L 15 100 05/29/24 06:48 37.2 C 69 17 100 05/29/24 06:45 114/56 L 05/29/24 06:39 37.2 C 74 20 96 05/29/24 06:33 37.2 C 65 16 100 05/29/24 06:31 109/84 05/29/24 06:31 109/84 05/29/24 06:24 37.2 C 55 L 16 100 05/29/24 06:18 37.2 C 70 16 100 05/29/24 06:15 116/66 05/29/24 06:00 141/51 H 05/29/24 05:54 37.1 C 60 17 99 05/29/24 05:45 37.1 C 80 21 90 05/29/24 05:33 37.0 C 78 31 H 95 05/29/24 05:31 115/69 05/29/24 05:31 115/69 05/29/24 05:24 37.0 C 106 H 24 82 L 05/29/24 05:21 37.0 C 62 21 100 05/29/24 05:16 125/75 05/29/24 05:16 125/75 05/29/24 05:00 36.9 C 80 23 100 05/29/24 04:36 36.9 C 56 L 21 100 05/29/24 04:03 35.6 C L 73 19 100 05/29/24 04:01 108/54 L 05/29/24 04:00 Room Air 05/29/24 03:51 36.9 C 87 21 99 05/29/24 03:45 115/87 05/29/24 03:42 36.9 C 91 H 23 99 05/29/24 03:32 113/52 L 05/29/24 03:32 113/52 L 05/29/24 03:21 37.0 C 76 18 91 05/29/24 03:17 119/56 L 05/29/24 03:17 119/56 L 05/29/24 03:17 119/56 L 05/29/24 03:09 36.9 C 83 18 95 05/29/24 03:03 36.9 C 81 19 99 05/29/24 02:57 36.9 C 73 19 84 L 05/29/24 02:47 104/74 05/29/24 02:36 36.9 C 87 23 99 05/29/24 02:18 36.9 C 83 19 99 10/25/24 02:16 115/64 05/29/24 02:16 11564 Laboratory Results Abnormal lab results 05/28/24 05/29/24 05/29/24 Range/Units 18:13 00:17 04:15 WBC 16.41 H (4.8-10.8) K/ul RBC 2.76 L (4.20-5.40) M/uL Hgb 8.6 L (12.0-16.0) g/dl Hct 24.9 L (37.0-47.0) % Neut # (Auto) 14.41 H (1.40-6.50) K/uL Lymph # (Auto) 0.62 L (1.20-3.40) K/uL [place] # (Auto) 1.26 H (0.11-0.59) K/uL PT 12.4 H (9.0-12.0) Seconds INR 1.2 H (0.9-1.1) APTT 38 H (21-31) Seconds Carbon Dioxide 19 L (21-32) mmol/L Anion Gap 13 H (3-11) Creatinine 1.78 H D (0.6-1.2) mg/dl Glucose 153 H (70-99(Fasting)) mg/dl POC Glucose 153 H 135 H (70-99) mg/dl Calcium 8.3 L (8.6-10.3) mg/dl Total Protein 5.6 L (6.0-8.3) gm/dl Globulin 2.0 L (2.5-4.0) gm/dl 05/29/24 Range/Units 11:31 WBC (4.8-10.8) K/ul RBC (4.20-5.40) M/uL Hgb (12.0-16.0) g/dl Hct (37.0-47.0) % Neut # (Auto) (1.40-6.50) K/uL Lymph # (Auto) (1.20-3.40) K/uL [place] # (Auto) (0.11-0.59) K/uL PT (9.0-12.0) Seconds INR (0.9-1.1) APTT (21-31) Seconds Carbon Dioxide (21-32) mmol/L Anion Gap (3-11) Creatinine (0.6-1.2) mg/dl Glucose (70-99(Fasting)) mg/dl POC Glucose 126 H (70-99) mg/dl Calcium (8.6-10.3) mg/dl Total Protein (6.0-8.3) gm/dl Globulin (2.5-4.0) gm/dl Diagnostic Findings KUB X-Ray 05/29/24 09:39 KUB CLINICAL HISTORY: Abdominal distention. FINDINGS: 2 AP, portable, supine abdominal radiographs are correlated with abdominal CT dated 05/27/2024. There are mildly distended loops of small bowel which measure up to 3.3 cm in diameter. There is no radiographic evidence of high-grade obstruction. A rectal temperature probe is in place. No evidence of intraperitoneal free air is seen on these supine images. There are no abnormal abdominal calcifications. The skeletal structures are osteopenic and appear intact. There is moderate lumbosacral spondylosis. IMPRESSION: Nonspecific bowel gas pattern with mildly distended and gas-filled loops of small bowel. There is no evidence of high-grade obstruction. This is likely unchanged from the recent CT scan. Correlate clinically. Electronically signed by: Da Lucia M.D. 05/29/2024 1:19 PM PG Care Time/CCT Total # of Minutes Spent Total Time Spent with Patient: Total time spent is greater than 50% in coordination of care (as documented) at patient's floor/unit and/or counseling patient: Coding Level of Care Code 63681 SUB INP/OBS CARE 2/35MIN Diagnoses Admitted to intensive care unit Z78.9 Septic shock A41.9; R65.21 Acute dehydration E86.0 Acute renal failure N17.9 Severe sepsis A41.9; R65.20 Esophagitis K20.90 Ileus K56.7 Enteritis K52.9
--- NOTE | 2024-05-29 23:01 | Electrocardiogram Report ---
Test Reason : Blood Pressure : */* mmHG Vent. Rate : 127 BPM Atrial Rate : 127 BPM P-R Int : 126 ms QRS Dur : 76 ms QT Int : 328 ms P-R-T Axes : -19 90 -32 degrees QTcB Int : 476 ms Sinus tachycardia Rightward axis Nonspecific ST and T wave abnormality Abnormal ECG When compared with ECG of 23-May-2024 10:39, QT has shortened Confirmed by Catalino Betancur ([id number]) on 05/29/2024 11:00:44 PM Referred By: REFERRED SELF Confirmed By: Catalino Betancur
--- NOTE | 2024-05-29 23:02 | Electrocardiogram Report ---
Test Reason : Blood Pressure : */* mmHG Vent. Rate : 88 BPM Atrial Rate : 88 BPM P-R Int : 248 ms QRS Dur : 86 ms QT Int : 432 ms P-R-T Axes : 92 87 68 degrees QTcB Int : 523 ms Sinus rhythm with 1st degree A-V block Low voltage QRS Nonspecific T wave abnormality Prolonged QT Abnormal ECG When compared with ECG of 27-May-2024 16:51, CA interval has increased ST no longer depressed in Inferior leads Confirmed by Catalino Betancur ([id number]) on 05/29/2024 11:01:37 PM Referred By: REFERRED SELF Confirmed By: Catalino Betancur
--- NOTE | 2024-05-29 23:02 | Electrocardiogram Report ---
Test Reason : Blood Pressure : */* mmHG Vent. Rate : 66 BPM Atrial Rate : 66 BPM P-R Int : 196 ms QRS Dur : 90 ms QT Int : 532 ms P-R-T Axes : 78 74 68 degrees QTcB Int : 557 ms Normal sinus rhythm Low voltage QRS Prolonged QT Abnormal ECG When compared with ECG of 28-May-2024 06:30, [place] interval has decreased Nonspecific T wave abnormality no longer evident in Inferior leads Nonspecific T wave abnormality has replaced inverted T waves in Anterior leads Confirmed by Catalino Betancur ([id number]) on 05/29/2024 11:02:18 PM Referred By: REFERRED SELF Confirmed By: Catalino Betancur
[2024-05-30 04:44] LABS: Basophils # (auto) 0.01 K/uL (0.00-0.20); Basophils % (auto) 0.1 %; Hematocrit (blood only) 22.6 % (37.0-47.0); Immature Granulocytes # (auto) 0.02 K/uL (0.01-0.20); Immature Granulocytes % (auto) 0.3 %; Lymphocytes # (auto) 0.48 K/uL (1.20-3.40); Lymphocytes % (auto) 7.2 %; Mean Corpuscular Hemoglobin 31.9 pg (25.0-34.0); Mean Corpuscular Hgb Conc 35.4 g/dL (32.0-36.0); Mean Platelet Volume 9.2 fL (9.4-12.4); Monocytes # (auto) 0.41 K/uL (0.11-0.59); Monocytes % (auto) 6.1 %; Neutrophils # (auto) 5.79 K/uL (1.40-6.50); Neutrophils % (auto) 86.3 %; Platelet Count 226 K/uL (130-400); RDW Coefficient of Variation 12.5 % (11.5-14.5); Red Blood Count 2.51 M/uL (4.20-5.40); White Blood Count 6.71 K/ul (4.8-10.8)
[2024-05-30 05:02] LABS: Albumin Globulin Ratio 1.4 (0.9-2); Albumin Level 3.1 gm/dl (3.4-5.0); BUN Creatinine Ratio 14.9 (10-20); Bilirubin,Total 0.4 mg/dl (0.2-1.0); Calcium 7.9 mg/dl (8.6-10.3); Creatinine Clr Calc Pharmacy 30.2 ml/min; Globulin 2.2 gm/dl (2.5-4.0); Magnesium 1.8 mg/dl (1.7-2.4); Potassium 2.6 mmol/L (3.5-5.1); Total Protein 5.3 gm/dl (6.0-8.3)
[2024-05-30 05:28] LABS: INR 1.2 (0.9-1.1); Partial Thromboplastin Ratio 1.3; Partial Thromboplastin Time 35 Seconds (21-31); Prothrombin Time 12.8 Seconds (9.0-12.0)
[2024-05-30] MEDS: MAGNESIUM SULFATE / D5W 1 GM/100 ML BAG IV SCH (07:39)
[2024-05-30] MEDS: POTASSIUM CHLORIDE / WTR 10 MEQ/100 ML PLCT IV SCH ×2 (07:39→15:29)
[2024-05-30] MEDS: cefTRIAXone SODIUM 2,000 MG/50 ML BAG IV SCH (10:36)
--- NOTE | 2024-05-30 10:53 | Critical Care Progress Note ---
Date of Service May 30, 2024 Assessment & Plan (1) Septic shock: Plan: Reason Critically Ill: 64-year-old female with past medical history of metastatic adenocarcinoma currently undergoing treatment with Keytruda presents to the ICU after 3 days of nausea and vomiting, now hypotensive requiring vasopressor support with possible sepsis. Neuro - Delirium resolving. Suspect metabolic encephalopathy which is improving. History of left frontal lobe craniectomy. Patient with baseline dementia/confusion. - She did undergo CT head which was negative for acute intracranial findings Seizure disordercontinue Keppra. Will likely transition to p.o. once cleared by speech therapy. Cardiac - Shocklikely sepsis, With hypovolemia likely also playing a role in the setting of 3 days of vomiting/diarrhea See ID for treatment of sepsis below -Continue as needed fluid boluses. -Off of vasopressors. Will discontinue central line. -Echocardiogram 05/28/2024 revealed a normal LVEF of 60 to 65%. No valvular abnormalities. - Hold antihypertensives. Restart antihypertensives as blood pressure allows. - Continuous monitoring on telemetry Respiratory - COPDstable. Lungs clear to auscultation and ABG without Hypercapnia or respiratory acidosis - DuoNebs as needed - Continuous monitoring on pulse ox. Currently maintaining oxygen saturation on room air -Patient with a history of adenocarcinoma of the lung status post resection. GI - SBO/ileusCT abdomen and pelvis with dilated small bowel loops consistent with ileus. Likely source of abdominal pain. - No active vomiting at this time. KUB 05/29/2024 with a nonspecific bowel gas pattern with mildly distended and gas-filled loops of small bowel. No high- grade obstruction seen. Patient's belly is soft today and she is requesting a diet. - Speech consult -Advance diet as tolerated. RENAL/LYTES - Acute renal failureAKI resolving with increased urine output. - Likely prerenal considering severe dehydration/hypovolemia with hypotension with sepsis. Replacing electrolytes aggressively. Will discontinue Bermudez catheter. - Bermudez catheter to be discontinued. ENDO - No history of diabetes or thyroid disease. ICU hyperglycemic protocol. Decrease stress dose steroids to 50 mg twice daily and likely can discontinue completely in the next 1 to 2 days. HEME - H&H with slight drop likely hemodilutional. ID - Sepsisunsure of etiology at this time but suspect possible colitis with diarrhea. Patient also underwent treatment for recent UTI. -De-escalate antibiotics to Rocephin 05/30/2024. Completed total of 5 days of antibiotics - Respiratory BioFire negative, C. difficile negative - Will check stool biofire -Blood and urine cultures negative. -Repeat procalcitonin today. Initial Pro-Luis was elevated likely from renal failure. LINES/IV ACCESS - Peripheral IVs, CVC right IJ inserted 05/27. Right IJ central line to be removed today. DVT PROPHYLAXIS - SCDs, heparin subcu Patient will be downgraded to PCU status. (2) Elevated lactic acid level: (3) Non-ST elevation HI (NSTEMI): (4) Acute renal failure: (5) Adenocarcinoma of left lung: (6) Esophagitis: (7) Colitis: Admission and Anticipated Discharge Date Admission Date: May 27, 2024 Subjective Patient much more awake and alert today. Following commands and requesting water. Denies any significant pain or shortness of breath. Review of Systems Review of Systems: All systems reviewed & are unremarkable except as noted in HPI & below Physical Exam Constitutional: + frail appearing; no acute distress Eyes: PERRL, conjunctivae normal, anicteric sclerae ENMT: external ear and nose normal, oropharynx normal Neck: trachea midline, no thyromegaly Respiratory: normal respiratory effort, lungs clear to auscultation Cardiovascular: Heart Sounds: normal S1 and normal S2; no murmur Extremities: no edema Gastrointestinal (Abdomen): Abdomen soft, tender with palpation generalized in all 4 quadrants. Bowel sounds present all 4 quadrants Musculoskeletal: no cyanosis or clubbing, extremities motor strength 5/5 Skin: no rashes, warm and dry Neurologic: PERRL, EOMI, accommodation nl, no face palsy, no dysarthria Psychiatric: Orientation: alert and oriented x 3 Genitourinary: Indwelling Bermudez catheter present, urine concentrated dark yellow Results & Data Results & Data Vital Signs (Past 12 Hours) Vital Signs Temp Pulse Resp BP Pulse Ox Pulse Ox O2 Del Method 05/30/24 10:30 126/71 05/30/24: 37.1 C 55 L 15 98 05/30/24 10:15 126/75 05/30/24 10:09 37.1 C 64 17 100 05/30/24 09:45 118/66 05/30/24 09:38 37.2 C 62 16 99 05/30/24 09:30 124/70 05/30/24 09:30 124/70 05/30/24 09:29 37.2 C 58 L 22 99 05/30/24 09:15 124/64 05/30/24 09:15 124/64 05/30/24 09:14 37.3 C 54 L 14 100 05/30/24 09:11 37.2 C 62 24 100 05/30/24 09:00 120/66 05/30/24 08:56 37.3 C 56 L 18 99 05/30/24 08:47 37.3 C 62 18 100 05/30/24 08:45 114/74 05/30/24 08:45 114/74 05/30/24 08:30 113/71 05/30/24 08:30 113/71 05/30/24 08:20 37.3 C 51 L 12 99 05/30/24 08:15 128/67 05/30/24 08:15 128/67 05/30/24 08:05 37.2 C 54 L 17 99 05/30/24 08:00 124/66 05/30/24 08:00 124/66 05/30/24 08:00 124/66 05/30/24 08:00 05/30/24 08:00 Room Air 05/30/24 08:00 66 05/30/24 07:45 115/64 05/30/24 07:39 37.1 C 64 21 98 05/30/24 07:33 37.2 C 50 L 14 99 05/30/24 07:30 124/64 05/30/24 07:30 124/64 05/30/24 07:27 37.1 C 75 20 95 05/30/24 07:21 37.1 C 56 L 16 100 05/30/24 07:16 117/66 05/30/24 07:16 117/66 05/30/24 07:09 37.0 C 63 20 99 05/30/24 07:00 37.0 C 62 17 99 05/30/24 07:00 104/66 05/30/24 06:48 36.9 C 68 25 H 98 05/30/24 06:45 116/65 05/30/24 06:45 116/65 05/30/24 06:36 37.1 C 51 L 15 97 05/30/24 06:30 107/59 L 05/30/24 06:30 107/59 L 05/30/24 06:30 37.0 C 51 L 16 97 05/30/24 06:18 37.1 C 55 L 20 97 05/30/24 06:15 112/57 L 05/30/24 06:00 37.1 C 49 L 17 97 05/30/24 06:00 110/56 L 05/30/24 06:00 110/56 L 05/30/24 05:48 26.4 C L 53 L 18 97 05/30/24 05:45 116/66 05/30/24 05:39 37.2 C 59 L 20 97 05/30/24 05:30 37.2 C 51 L 18 95 05/30/24 05:30 103/58 L 05/30/24 05:06 37.2 C 52 L 12 96 05/30/24 05:00 105/56 L 05/30/24 04:42 37.0 C 62 17 97 05/30/24 04:30 109/69 05/30/24 04:30 109/69 05/30/24 04:15 122/64 05/30/24 04:00 110/56 L 05/30/24 04:00 110/56 L 05/30/24 04:00 96 05/30/24 03:57 34.6 C L 54 L 11 L 96 05/30/24 03:45 37.0 C 55 L 11 L 95 05/30/24 03:45 96/59 L 05/30/24 03:45 96/59 L 05/30/24 03:30 37.1 C 47 L 12 96 05/30/24 03:18 37.0 C 52 L 12 98 05/30/24 03:08 106/64 05/30/24 03:06 37.0 C 70 18 86 L 05/30/24 03:00 37.1 C 66 18 98 05/30/24 02:48 36.9 C 70 20 99 05/30/24 02:42 37.1 C 70 27 H 97 05/30/24 02:15 36.6 C 53 L 15 98 05/30/24 02:15 121/68 05/30/24 02:06 37.0 C 55 L 18 98 05/30/24 02:00 111/60 05/30/24 01:54 37.0 C 66 20 95 05/30/24 01:45 37.0 C 72 17 87 L 05/30/24 01:30 117/67 05/30/24 01:30 117/67 05/30/24 01:30 60 17 98 05/30/24 01:27 37.0 C 48 L 11 L 98 05/30/24 01:15 102/57 L 05/30/24 01:15 102/57 L 05/30/24 01:08 116/57 L 05/30/24 00:51 36.7 C 51 L 12 98 05/30/24 00:45 107/51 L 05/30/24 00:45 107/51 L 05/30/24 00:36 36.8 C 47 L 21 99 05/30/24 00:30 36.9 C 53 L 14 98 05/30/24 00:30 88/50 L 05/30/24 00:30 88/50 L 05/30/24 00:30 88/50 L 05/30/24 00:30 88/50 L 05/30/24 00:15 36.8 C 50 L 15 98 05/30/24 00:15 92/50 L 05/30/24 00:15 92/50 L 05/30/24 00:01 116/52 L 05/30/24 00:01 116/52 L 05/30/24 00:01 116/52 L 05/30/24 00:00 36.8 C 50 L 13 99 05/30/24 00:00 96 05/30/24 00:00 52 L 05/29/24 23:48 36.8 C 48 L 14 98 05/29/24 23:46 107/54 L 05/29/24 23:46 107/54 L 05/29/24 23:36 36.7 C 47 L 14 99 05/29/24 23:21 36.8 C 56 L 22 100 05/29/24 23:01 123/67 05/29/24 23:00 37.0 C 87 19 99 05/29/24 22:51 37.0 C 83 17 O2 Del Method 05/30/24 10:30 05/30/24 10:26 05/30/24 10:15 05/30/24 10:09 05/30/24 09:45 05/30/24 09:38 05/30/24 09:30 05/30/24 09:30 05/30/24 09:29 05/30/24 09:15 05/30/24 09:15 05/30/24 09:14 05/30/24 09:11 05/30/24 09:00 05/30/24 08:56 05/30/24 08:47 05/30/24 08:45 05/30/24 08:45 05/30/24 08:30 05/30/24 08:30 05/30/24 08:20 05/30/24 08:15 05/30/24 08:15 05/30/24 08:05 05/30/24 08:00 05/30/24 08:00 05/30/24 08:00 05/30/24 08:00 Room Air 05/30/24 08:00 05/30/24 08:00 05/30/24 07:45 05/30/24 07:39 05/30/24 07:33 05/30/24 07:30 05/30/24 07:30 05/30/24 07:27 05/30/24 07:21 05/30/24 07:16 05/30/24 07:16 05/30/24 07:09 05/30/24 07:00 05/30/24 07:00 05/30/24 06:48 05/30/24 06:45 05/30/24 06:45 05/30/24 06:36 05/30/24 06:30 05/30/24 06:30 05/30/24 06:30 05/30/24 06:18 05/30/24 06:15 05/30/24 06:00 05/30/24 06:00 05/30/24 06:00 05/30/24 05:48 05/30/24 05:45 05/30/24 05:39 05/30/24 05:30 05/30/24 05:30 05/30/24 05:06 05/30/24 05:00 05/30/24 04:42 05/30/24 04:30 05/30/24 04:30 05/30/24 04:15 05/30/24 04:00 05/30/24 04:00 05/30/24 04:00 Room Air 05/30/24 03:57 05/30/24 03:45 05/30/24 03:45 05/30/24 03:45 05/30/24 03:30 05/30/24 03:18 05/30/24 03:08 05/30/24 03:06 05/30/24 03:00 05/30/24 02:48 05/30/24 02:42 05/30/24 02:15 05/30/24 02:15 05/30/24 02:06 05/30/24 02:00 05/30/24 01:54 05/30/24 01:45 05/30/24 01:30 05/30/24 01:30 05/30/24 01:30 05/30/24 01:27 05/30/24 01:15 05/30/24 01:15 05/30/24 01:08 05/30/24 00:51 05/30/24 00:45 05/30/24 00:45 05/30/24 00:36 05/30/24 00:30 05/30/24 00:30 05/30/24 00:30 05/30/24 00:30 05/30/24 00:30 05/30/24 00:15 05/30/24 00:15 05/30/24 00:15 05/30/24 00:01 05/30/24 00:01 05/30/24 00:01 05/30/24 00:00 05/30/24 00:00 Room Air 05/30/24 00:00 05/29/24 23:48 05/29/24 23:46 05/29/24 23:46 05/29/24 23:36 05/29/24 23:21 05/29/24 23:01 05/29/24 23:00 05/29/24 22:51 Coding Level of Care Code 40723 SUB INP/OBS CARE 3/50MIN Diagnoses Septic shock A41.9; R65.21 Elevated lactic acid level R79.89 Non-ST elevation HI (NSTEMI) I21.4 Acute renal failure N17.9 Adenocarcinoma of left lung C34.92 Esophagitis K20.90 Colitis K52.9
--- NOTE | 2024-05-30 11:35 | Hospitalist Progress Note ---
Date of Service May 30, 2024 Assessment & Plan (1) Septic shock: Plan: presumed source - GI ? c diff negative awaiting stool BioFire can't rule out relative adrenal crisis as cortisol level was only 12 in the face of severe illness thus, remains on IV hydrocortisone - weaned today from 50mg TID to 50mg BID thus far blood & urine cx's are negative cxr was negative for pneumonia Respiratory BioFire was negative was on IV zosyn; changed to IV rocephin by critical care team today await stool BioFire (2) Acute dehydration: Plan: marked improvement with resulting JUAN J - also resolved diet as tolerated (3) Acute renal failure: Plan: peak Cr 4 now 1.3 this am JUAN J resolved prerenal in the setting of #1, #2 BMP am (4) Ileus: Plan: as seen on imaging could be due to severe hypokalemia could be infectious cont to correct the low K await stool BioFire (5) Enteritis: Plan: as seen on CT a/p c diff negative stool BioFire pending respiratory BioFire negative (6) Adenocarcinoma of lung, stage 4: Plan: presented late May 2023 with focal seizure imaging with large left frontal lobe brain mass with edema Tx to [facility] 06/05/23 - resection of L frontal lobe tumor - path c/w adenocarcinoma, lung primary 07/22/23 - 08/06/23 - s/p whole brain XRT with hippocampal sparing currently on Tracietruda primary oncologist? CT head this admission without obvious brain mets or edema (7) Brain metastasis: Plan: dx 05/2023, with resection of L frontal lobe brain mets at [facility] on 06/05/23 CT head negative this admission (8) Anemia: Plan: check Fe studies, B12, and folate in am check CBC in am (9) COPD (chronic obstructive pulmonary disease): Plan: sats high 90s in RA no exacerbation at this time (10) Acute hypokalemia: Plan: likely multifactorial - diarrhea (GI loss), diuretic phase of ATN (renal loss), and poor PO intake replace IV/PO serial levels follow mag levels as well (11) Seizure disorder: Plan: dx 05/2023 - 2nd to large frontal lobe brain met on keppra IV (12) Esophagitis: Plan: as seen on EGD last week cont PPI (13) Severe protein-calorie malnutrition: Plan: nearly 30kg weight loss since 05/2023 (73.6 kg --> 46.6 kg) most certainly is due to her stage 4 lung ca Plan DVT proph - high risk of DVT - heparin 5000 BID will need PT/OT will contact family with update Admission and Anticipated Discharge Date Admission Date: May 27, 2024 Subjective patient awake/alert during my visit denies any complaints no headache, URI symptoms, cough, congestion, wheezing, abd pain or N/V per staff is having frequent liquid stools she states "I've been in the hospital a lot lately" review of record - just had EGD about 8-9 days ago showed gastritis and esophagitis diet ordered by critical care team off pressors since yesterday Review of Systems Review of Systems: gen - no fevers or chills cv - no chest pain pulm - no dyspnea GI - no pain Physical Exam Physical Exam: gen - very thin, cachectic, NAD, laying comfortably in bed eyes - left eye proptosis, right eye mild ptosis mouth - MMM neck - no JVD heart - RRR, s1 s2, no murmur lungs - CTA b/l; no rales or wheeze abd - soft NT ND BS+ ext - no edema, pulses 2+ b/l, limbs are very thin skin - generalized pallor Results & Data Results & Data Vital Signs (Past 12 Hours) Vital Signs Temp Pulse Resp BP Pulse Ox Pulse Ox O2 Del Method 05/30/24 10:30 126/71 05/30/24 10:26 37.1 C 55 L 15 98 05/30/24 10:15 126/75 05/30/24 10:09 37.1 C 64 17 100 05/30/24 09:45 118/66 05/30/24 09:38 37.2 C 62 16 99 05/30/24 09:30 124/70 05/30/24 09:30 124/70 05/30/24 09:29 37.2 C 58 L 22 99 05/30/24 09:15 124/64 05/30/24 09:15 124/64 05/30/24 09:14 37.3 C 54 L 14 100 05/30/24 09:11 37.2 C 62 24 100 05/30/24 09:00 120/66 05/30/24 08:56 37.3 C 56 L 18 99 05/30/24 08:47 37.3 C 62 18 100 05/30/24 08:45 114/74 05/30/24 08:45 114/74 05/30/24 08:30 113/71 05/30/24 08:30 113/71 05/30/24 08:20 37.3 C 51 L 12 99 05/30/24 08:15 128/67 05/30/24 08:15 128/67 05/30/24 08:05 37.2 C 54 L 17 99 05/30/24 08:00 124/66 05/30/24 08:00 124/66 05/30/24 08:00 124/66 05/30/24 08:00 05/30/24 08:00 Room Air 05/30/24 08:00 66 05/30/24 07:45 115/64 05/30/24 07:39 37.1 C 64 21 98 05/30/24 07:33 37.2 C 50 L 14 99 05/30/24 07:30 124/64 05/30/24 07:30 124/64 05/30/24 07:27 37.1 C 75 20 95 05/30/24 07:21 37.1 C 56 L 16 100 05/30/24 07:16 117/66 05/30/24 07:16 117/66 05/30/24 07:09 37.0 C 63 20 99 05/30/24 07:00 37.0 C 62 17 99 05/30/24 07:00 104/66 05/30/24 06:48 36.9 C 68 25 H 98 05/30/24 06:45 116/65 05/30/24 06:45 116/65 05/30/24 06:36 37.1 C 51 L 15 97 05/30/24 06:30 107/59 L 05/30/24 06:30 107/59 L 05/30/24 06:30 37.0 C 51 L 16 97 05/30/24 06:18 37.1 C 55 L 20 97 05/30/24 06:15 112/57 L 05/30/24 06:00 37.1 C 49 L 17 97 05/30/24 06:00 110/56 L 05/30/24 06:00 110/56 L 05/30/24 05:48 26.4 C L 53 L 18 97 05/30/24 05:45 116/66 05/30/24 05:39 37.2 C 59 L 20 97 05/30/24 05:30 37.2 C 51 L 18 95 05/30/24 05:30 103/58 L 05/30/24 05:06 37.2 C 52 L 12 96 05/30/24 05:00 105/56 L 05/30/24 04:42 37.0 C 62 17 97 05/30/24 04:30 109/69 05/30/24 04:30 109/69 05/30/24 04:15 122/64 05/30/24 04:00 110/56 L 05/30/24 04:00 110/56 L 05/30/24 04:00 96 05/30/24 03:57 34.6 C L 54 L 11 L 96 05/30/24 03:45 37.0 C 55 L 11 L 95 05/30/24 03:45 96/59 L 05/30/24 03:45 96/59 L 05/30/24 03:30 37.1 C 47 L 12 96 05/30/24 03:18 37.0 C 52 L 12 98 05/30/24 03:08 106/64 05/30/24 03:06 37.0 C 70 18 86 L 05/30/24 03:00 37.1 C 66 18 98 05/30/24 02:48 36.9 C 70 20 99 05/30/24 02:42 37.1 C 70 27 H 97 05/30/24 02:15 36.6 C 53 L 15 98 05/30/24 02:15 121/68 05/30/24 02:06 37.0 C 55 L 18 98 05/30/24 02:00 111/60 05/30/24 01:54 37.0 C 66 20 95 05/30/24 01:45 37.0 C 72 17 87 L 05/30/24 01:30 117/67 05/30/24 01:30 117/67 05/30/24 01:30 60 17 98 05/30/24 01:27 37.0 C 48 L 11 L 98 05/30/24 01:15 102/57 L 05/30/24 01:15 102/57 L 05/30/24 01:08 116/57 L 05/30/24 00:51 36.7 C 51 L 12 98 05/30/24 00:45 107/51 L 05/30/24 00:45 107/51 L 05/30/24 00:36 36.8 C 47 L 21 99 05/30/24 00:30 36.9 C 53 L 14 98 05/30/24 00:30 88/50 L 05/30/24 00:30 88/50 L 05/30/24 00:30 88/50 L 05/30/24 00:30 88/50 L 05/30/24 00:15 36.8 C 50 L 15 98 05/30/24 00:15 92/50 L 05/30/24 00:15 92/50 L 05/30/24 00:01 116/52 L 05/30/24 00:01 116/52 L 05/30/24 00:01 116/52 L 05/30/24 00:00 36.8 C 50 L 13 99 05/30/24 00:00 96 05/30/24 00:00 52 L 05/29/24 23:48 36.8 C 48 L 14 98 05/29/24 23:46 107/54 L 05/29/24 23:46 107/54 L 05/29/24 23:36 36.7 C 47 L 14 99 Laboratory Results Laboratory Results - last 24 hr 05/29/24 05/30/24 17:58 04:21 WBC 6.71 RBC 2.51 L Hgb 8.0 L Hct 22.6 L MCV 90.0 MCH 31.9 MCHC 35.4 RDW Std Deviation 41.0 RDW Coeff of Micheal 12.5 Plt Count 226 MPV 9.2 L Immature Gran % (Auto) 0.3 Neut % (Auto) 86.3 Lymph % (Auto) 7.2 [place] % (Auto) 6.1 Eos % (Auto) 0.0 Baso % (Auto) 0.1 Neut # (Auto) 5.79 Lymph # (Auto) 0.48 L [place] # (Auto) 0.41 Eos # (Auto) 0.00 Baso # (Auto) 0.01 Immature Gran # (Auto) 0.02 PT 12.8 H INR 1.2 H APTT 35 H PTT Ratio 1.3 Sodium 138 Potassium 2.6 L D Chloride 107 Carbon Dioxide 21 Anion Gap 10 BUN 20 Creatinine 1.34 H D Est Cr Clr Drug Dosing 30.2 eGFR 44.28 BUN/Creatinine Ratio 14.9 Glucose 118 H POC Glucose 113 H Calcium 7.9 L Magnesium 1.8 Total Bilirubin 0.4 AST 16 ALT 16 Alkaline Phosphatase 24 L Total Protein 5.3 L Albumin 3.1 L Globulin 2.2 L Albumin/Globulin Ratio 1.4 PG Care Time/CCT Total # of Minutes Spent Total Time Spent with Patient: Total time spent is greater than 50% in coordination of care (as documented) at patient's floor/unit and/or counseling patient: Coding Level of Care Code 93932 SUB INP/OBS CARE 3/50MIN Diagnoses Septic shock A41.9; R65.21 Acute dehydration E86.0 Acute renal failure N17.9 Ileus K56.7 Enteritis K52.9 Adenocarcinoma of lung, stage 4 C34.90 Brain metastasis C79.31 Anemia D64.9 COPD (chronic obstructive pulmonary disease) J44.9 Acute hypokalemia E87.6 Seizure disorder G40.909 Esophagitis K20.90 Severe protein-calorie malnutrition E43
[2024-05-30 12:45] LABS: BUN Creatinine Ratio 15.3 (10-20); Calcium 8.2 mg/dl (8.6-10.3); Creatinine Clr Calc Pharmacy 33.7 ml/min; Magnesium 2.4 mg/dl (1.7-2.4); Potassium 2.7 mmol/L (3.5-5.1)
[2024-05-30] MEDS: POTASSIUM CHLORIDE CRTAB 20 MEQ TABCR PO SCH (15:29)
[2024-05-30] MEDS: HYDROCORTISONE SOD 50 MG in SYRINGE 0 ML IV SCH (20:39)
[2024-05-30] MEDS ORDERED: HYDROCORTISONE SOD 50 MG in SYRINGE 0 ML IV SCH (21:00)
[2024-05-31 06:09] LABS: Hemoglobin 8.7 g/dl (12.0-16.0); Mean Corpuscular Hgb Conc 34.8 g/dL (32.0-36.0); Mean Platelet Volume 9.3 fL (9.4-12.4); Platelet Count 276 K/uL (130-400); RDW Coefficient of Variation 12.3 % (11.5-14.5); Red Blood Count 2.81 M/uL (4.20-5.40); White Blood Count 3.61 K/ul (4.8-10.8)
[2024-05-31 06:25] LABS: BUN Creatinine Ratio 17.7 (10-20); Calcium 8.4 mg/dl (8.6-10.3); Creatinine Clr Calc Pharmacy 48.1 ml/min; Potassium 2.8 mmol/L (3.5-5.1)
[2024-05-31 06:51] LABS: Folate (Folic Acid),Ser orPlas 6.97 ng/ml (>5.38)
[2024-05-31] MEDS: POTASSIUM CHLORIDE / WTR 10 MEQ/100 ML PLCT IV SCH (09:29)
[2024-05-31] MEDS: FOLIC ACID 1 MG in SYRINGE 9.8 ML IV SCH (09:32)
--- NOTE | 2024-05-31 09:55 | Hospitalist Progress Note ---
Date of Service May 31, 2024 Assessment & Plan (1) Septic shock: Plan: presumed shock was 2nd to sepsis shock resolved only required pressors hospital day #1 source - GI ? c diff negative awaiting stool BioFire can't rule out relative adrenal crisis as cortisol level was only 12 in the face of severe illness thus, remains on IV hydrocortisone - will wean from 50mg BID to 25mg BID blood & urine cx's are negative cxr was negative for pneumonia Respiratory BioFire was negative was on IV zosyn; changed to IV rocephin 05/30 continue such for now await stool BioFire (2) Acute dehydration: Plan: resolved with resulting JUAN J - also resolved diet as tolerated (3) Acute renal failure: Plan: peak Cr 4 now <1 JUAN J resolved prerenal in the setting of #1, #2 BMP am (4) Ileus: Plan: as seen on imaging could be due to severe hypokalemia could be infectious cont to correct the low K await stool BioFire (5) Enteritis: Plan: as seen on CT a/p c diff negative stool BioFire pending respiratory BioFire negative (6) Adenocarcinoma of lung, stage 4: Plan: presented late May 2023 with focal seizure imaging with large left frontal lobe brain mass with edema Tx to [facility] 06/05/23 - resection of L frontal lobe tumor - path c/w adenocarcinoma, lung primary 07/22/23 - 08/06/23 - s/p whole brain XRT with hippocampal sparing currently on Keytruda primary oncologist? patient confused - thinks it is Dr Amaya, [facility] Heme/onc will investigate such CT head this admission without obvious brain mets or edema consider MRI brain (7) Brain metastasis: Plan: dx 05/2023, with resection of L frontal lobe brain mets at [facility] on 06/05/23 CT head negative this admission (8) Anemia: Plan: Fe studies without Fe deficiency B12 wnl Folate borderline low - will start folic acid 1mg daily H/H remain acceptable (9) COPD (chronic obstructive pulmonary disease): Plan: sats high 90s in RA no exacerbation at this time (10) Acute hypokalemia: Plan: likely multifactorial - diarrhea (GI loss), diuretic phase of ATN (renal loss), and poor PO intake replace IV/PO once again serial levels mag level 2.4 today (11) Seizure disorder: Plan: dx 05/2023 - 2nd to large frontal lobe brain met on keppra IV change back to PO keppra 1000mg BID (12) Esophagitis: Plan: as seen on EGD last week cont PPI twice daily add carafate 1gm QID she reported reflux this am despite the PPI thus added the carafate (13) Severe protein-calorie malnutrition: Plan: nearly 30kg weight loss since 05/2023 (73.6 kg --> 46.6 kg) most certainly is due to her stage 4 lung ca (14) Acute metabolic encephalopathy: Plan: CT head at admission w/o acute findings however, in light of her prior brain mets, strongly consider MRI brain will try to obtain records thru the [facility] system to see when her last outpatient MRI was Plan DVT proph - high risk of DVT - heparin 5000 BID will need PT/OT - ordered will contact family or her next of kin with update Admission and Anticipated Discharge Date Admission Date: May 27, 2024 Subjective patient lying comfortably in bed tele overnight wnl patient reports that she called her friend Vivian and asked her to "bring money and other things" she has been confused per nurse despite the confusion she does know she is in the hospital and that it is May 2024 does not know the day of the week denies headache denies cp, dyspnea, abd pain still having loose stool continues to have very poor appetite she c/o weakness, but in the same breath she states she "is going home" Review of Systems Review of Systems: gen - weak, tired; no fevers or chills cv - no chest pain, no orthopnea pulm - no cough, no dyspnea GI - no abd pain or N/V; some difficulty swallowing Physical Exam Physical Exam: gen - very thin, cachectic, NAD, laying comfortably in bed eyes - left eye proptosis, right eye mild ptosis - unchanged mouth - MMM neck - no JVD heart - RRR, s1 s2, no murmur lungs - CTA b/l; no rales or wheeze abd - soft NT ND BS+ ext - no edema, pulses 2+ b/l, limbs are very thin skin - generalized pallor psych - mild confusion Results & Data Results & Data Vital Signs (Past 12 Hours) Vital Signs Temp Pulse Pulse Pulse Resp BP BP 05/31/24 07:51 36.6 C 69 18 114/69 05/31/24 07:29 80 05/31/24 02:38 36.6 C 70 18 109/64 05/30/24 23:00 58 L 05/30/24 22:55 65 05/30/24 22:23 36.7 C 58 L 18 110/72 Pulse Ox O2 Del Method 05/31/24 07:51 97 Room Air 05/31/24 07:29 05/31/24 02:38 96 Room Air 05/30/24 23:00 05/30/24 22:55 05/30/24 22:23 96 Room Air Laboratory Results Laboratory Results - last 24 hr 05/30/24 05/31/24 12:11 05:34 WBC 3.61 L RBC 2.81 L Hgb 8.7 L Hct 25.0 L MCV 89.0 MCH 31.0 MCHC 34.8 RDW Std Deviation 40.0 RDW Coeff of Micheal 12.3 Plt Count 276 MPV 9.3 L Sodium 136 139 Potassium 2.7 L 2.8 L Chloride 104 107 Carbon Dioxide 22 24 Anion Gap 10 8 BUN 19 17 Creatinine 1.24 H 0.96 Est Cr Clr Drug Dosing 33.7 48.1 eGFR 48.60 66.07 BUN/Creatinine Ratio 15.3 17.7 Glucose 148 H 103 H Calcium 8.2 L 8.4 L Phosphorus 2.0 L Magnesium 2.4 Iron 93 TIBC 229 L Unsaturated IBC 136 L Transferrin % Sat 41 Ferritin 344.0 Vitamin B12 1233 H Folate 6.97 Procalcitonin 0.51 H PG Care Time/CCT Total # of Minutes Spent Total Time Spent with Patient: Total time spent is greater than 50% in coordination of care (as documented) at patient's floor/unit and/or counseling patient: Coding Level of Care Code 34236 SUB INP/OBS CARE 3/50MIN Diagnoses Septic shock A41.9; R65.21 Acute dehydration E86.0 Acute renal failure N17.9 Ileus K56.7 Enteritis K52.9 Adenocarcinoma of lung, stage 4 C34.90 Brain metastasis C79.31 Anemia D64.9 COPD (chronic obstructive pulmonary disease) J44.9 Acute hypokalemia E87.6 Seizure disorder G40.909 Esophagitis K20.90 Severe protein-calorie malnutrition E43 Acute metabolic encephalopathy G93.41
[2024-05-31] MEDS: UMECLIDINIUM BROMIDE 62.5MCG/BLISTER 7 PUFFS/INHALER INH SCH (10:44)
[2024-05-31] MEDS: SUCRALFATE 1 GM/10 ML UDC PO SCH (13:34)
[2024-05-31] MEDS: POTASSIUM CHLORIDE PWD 20 MEQ PACK PO SCH (14:04)
[2024-05-31 15:33] LABS: Adenovirus F 40/41 PCR Not Detected (NotDetected); Astrovirus PCR Not Detected (NotDetected); Campylobacter PCR Not Detected (NotDetected); Cryptosporidium PCR Not Detected (NotDetected); Cyclospora cayetanensis PCR Not Detected (NotDetected); Entamoeba histolytica PCR Not Detected (NotDetected); Enteroaggregative E.coli(EAEC) Not Detected (NotDetected); Enteropathogenic E.coli (EPEC) Not Detected (NotDetected); Enterotoxigenic E.coli (ETEC) Not Detected (NotDetected); Giardia lamblia PCR Not Detected (NotDetected); Norovirus GI/GII PCR Not Detected (NotDetected); Plesiomonas shigelloides PCR Not Detected (NotDetected); Rotavirus A PCR Not Detected (NotDetected); Salmonella PCR Not Detected (NotDetected); Sapovirus PCR Not Detected (NotDetected); Shiga-like Toxin E.coli (STEC) Not Detected (NotDetected); Shigella/Enteroinvasive E.coli Not Detected (NotDetected); Vibrio cholerae PCR Not Detected (NotDetected); Vibrio species PCR Not Detected (NotDetected); Yersinia enterocolitica PCR Not Detected (NotDetected)
[2024-05-31] MEDS: HYDROCORTISONE SOD 25 MG in SYRINGE 0 ML IV SCH (20:01)
[2024-05-31] MEDS: levETIRAcetam 500 MG TAB PO SCH (20:02)
[2024-05-31] MEDS: PANTOprazole 40 MG TAB PO SCH (20:03)
[2024-05-31] MEDS ORDERED: levETIRAcetam 500 MG TAB PO SCH (21:00)
[2024-05-31] MEDS: hydrOXYzine HCl 25 MG TAB PO PRN (21:15)
[2024-05-31] MEDS: ACETAMINOPHEN 325 MG TAB PO PRN (21:15)
[2024-06-01 07:12] LABS: Hematocrit (blood only) 24.8 % (37.0-47.0); Hemoglobin 8.8 g/dl (12.0-16.0); Mean Corpuscular Hemoglobin 31.4 pg (25.0-34.0); Mean Corpuscular Hgb Conc 35.5 g/dL (32.0-36.0); Mean Corpuscular Volume 88.6 fL (80.0-100.0); Mean Platelet Volume 9.5 fL (9.4-12.4); Platelet Count 282 K/uL (130-400); RDW Coefficient of Variation 12.6 % (11.5-14.5); RDW Standard Deviation 40.9 fL (36.4-46.3); White Blood Count 4.79 K/ul (4.8-10.8)
[2024-06-01 07:36] LABS: Calcium 8.7 mg/dl (8.6-10.3); Potassium 3.3 mmol/L (3.5-5.1)
[2024-06-01 07:41] LABS: BUN Creatinine Ratio 17.8 (10-20); Creatinine Clr Calc Pharmacy 59.5 ml/min
[2024-06-01] MEDS: dexAMETHasone 1 MG TAB PO SCH (08:50)
[2024-06-01] MEDS: OPTIRAY 320 125ml IV ONE (09:34)
[2024-06-01] MEDS: oxyCODONE HCL IR 5 MG TAB (IMMEDIATE RELEASE) PO SCH ×2 (10:23→20:08)
--- NOTE | 2024-06-01 11:00 | CT Scan Report ---
CT angio chest PE protocol CT DOSE: 294.82 mGy.cm HISTORY: 64 years-old Female with lung ca/weight loss; r/o PE, worsenining lung ca. Acute chest vargas n and shortness of breath. History of lung cancer. TECHNIQUE: Multiple CTA images of the chest were obtained after the intravenous administration of 112 ml Optiray. Coronal and sagittal MIPS were obtained from the axial data set and were submitted for review. All measurements were obtained according to NASCET criteria. A dose lowering technique was u tilized adhering to the principles of ALARA. COMPARISON: CT abdomen and pelvis and chest radiograph 05/27/2024, PET CT 07/11/2023 FINDINGS: CTA: Moderate cardiomegaly. Trace pericardial effusion. Unremarkable thoracic aorta without aneurysm or di ssection. No pulmonary emboli identified. CT CHEST: 11 mm peripherally calcified right-sided thyroid nodule. Mild generalized body wall edema. No patholo gically enlarged lymph nodes. Small right was small to moderate left pleural effusions. Pulmonary emp hysema with bronchial wall thickening. Mild intralobular septal thickening. Dependent bibasilar predo minant atelectasis. Stable 7 mm groundglass nodule in the right upper lobe on image 181. Additional p reviously described subcentimeter nodules are not well seen on today's study and may be obscured. No new nodules are identified. Central airways appear patent. Mild nonspecific distal esophageal wall thickening with adjacent inflammatory stranding. Cholelithias is. No acute fracture. IMPRESSION: 1. Cardiomegaly with interstitial pulmonary edema, layering pleural effusions with mild dependent bib asilar atelectasis. 2. No pulmonary emboli. 3. No pathologically enlarged lymph nodes or new pulmonary lesions identified. 4. Stable subcentimeter subpleural groundglass nodule of the right upper lobe. 5. Distal esophageal wall thickening redemonstrated which may represent an esophagitis. 6. Cholelithiasis. ACT 112: Negative or not required by law. The above report was generated using voice recognition software. It may contain grammatical, syntax o r spelling errors. Electronically signed by: rDake Maxwell M.D. 06/01/2024 10:59 AM
--- NOTE | 2024-06-01 13:53 | Hospitalist Progress Note ---
Date of Service June 01, 2024 Assessment & Plan (1) Septic shock: Plan: present on admission shock was presumed 2nd to sepsis required ICU admission only required [facility] hospital day #1, weaned off --> shock resolved source - GI ? (CT with abnormal bowel loops) however, c diff negative & stool BioFire negative blood & urine cx's remain negative cxr negative for pneumonia CTA chest negative for infectious process Respiratory BioFire negative was on IV zosyn; changed to IV rocephin 05/30 since no infectious process found will stop rocephin can't rule out relative adrenal crisis as cause of shock as cortisol level was only 12 in the face of severe illness thus, has received IV hydrocortisone will stop IV hydrocortisone today and wean to dexamethasone 2mg daily as long as MRI brain is negative for intracerebral edema will continue to wean PO steroids (2) Acute dehydration: Plan: resolved with resulting JUAN J - also resolved diet as tolerated (3) Acute renal failure: Plan: peak Cr 4 now Cr 0.7 JUAN J resolved prerenal in the setting of #1, #2 BMP am (4) Ileus: Plan: as seen on imaging could have been due to severe hypokalemia doubt infectious - stool Biofire and stool c diff both negative cont to correct the low K (5) Enteritis: Plan: as seen on CT a/p c diff negative stool BioFire negative respiratory BioFire negative due to Keytruda? other? (6) Adenocarcinoma of lung, stage 4: Plan: presented late May 2023 with focal seizure imaging with large left frontal lobe brain mass with edema Tx to [facility] 06/05/23 - resection of L frontal lobe tumor - path c/w adenocarcinoma, lung primary 07/22/23 - 08/06/23 - s/p whole brain XRT with hippocampal sparing currently on Keytruda primary oncologist -- Dr Bradley Amaya, [facility] Heme/onc CT head this admission without obvious brain mets or edema MRI brain summer 2023 - negative for brain mets or other pathology CTA chest today without signs of active lung ca in light of ongoing confusion and failure to thrive will obtain MRI brain tomorrow w/ and w/o contrast (7) Brain metastasis: Plan: dx 05/2023, with resection of L frontal lobe brain mets at [facility] on 06/05/23 CT head negative this admission MRI brain tomorrow (8) Anemia: Plan: Fe studies without Fe deficiency B12 wnl Folate borderline low - cont folic acid 1mg daily H/H remain acceptable (9) COPD (chronic obstructive pulmonary disease): Plan: sats high 90s in RA no exacerbation at this time (10) Acute hypokalemia: Plan: likely multifactorial - diarrhea (GI loss), diuretic phase of ATN (renal loss), and poor PO intake SLOWLY improving current cont K supplementation - 40meq TID recheck BMP am once K level is normal will need to cut back the K supplement recent mag level 2.4 (11) Seizure disorder: Plan: dx 05/2023 - 2nd to large frontal lobe brain met continue PO keppra 1000mg BID (12) Esophagitis: Plan: as seen on EGD 05/22/24 cont PPI twice daily cont carafate 1gm QID she reported reflux this am despite the PPI and carafate thus, added pepcid 20mg IV x 1 (13) Severe protein-calorie malnutrition: Plan: nearly 30kg weight loss since 05/2023 (73.6 kg --> 46.6 kg) most certainly is due to her stage 4 lung ca add thiamine 200mg BID (14) Acute metabolic encephalopathy: Plan: CT head at admission w/o acute findings had outpatient MRI brain in 03/2024 ([facility]) negative for recurrent brain mets or other pathology in light of ongoing confusion will plan for repeat MRI brain in am tomorrow Plan DVT proph - high risk of DVT - heparin 5000 BID appreciate PT/OT evals - they are recommending rehab (I made social work aware) patient told me she does not want rehab, but she is confused, and going home is not a good option at this time I updated pt's closest friend Vivian Cartwright 05/31 Vivian told me that patient does not speak with her daughter patient has a son?? either way, other than Ms Cartwright, patient without good social support Vivian expressed concerns about patient returning home - Vivian confirmed patient has not been eating/drinking, has been losing weight, failing to thrive, etc. I sent a [place] Correspondence to Dr Bradley Amaya, [facility], informing him of back to back hospital stays Admission and Anticipated Discharge Date Admission Date: May 27, 2024 Subjective tele overnight wnl patient reports "doing ok" still not eating very much earlier in the day was c/o pain to the nursing staff she had asked for oxycodone for her pain (back, etc) during my visit she was mildly confused - thought it was Saturday I spoke with her that Pt/Ot both advising rehab placement she states "I'll do therapy at my house" Review of Systems Review of Systems: gen - no fevers or chills cv - no chest pain pulm - no dyspnea GI - no abd pain or N/V Physical Exam Physical Exam: gen - very thin, cachectic, NAD, laying comfortably in bed, mildly confused eyes - left eye proptosis, right eye mild ptosis - unchanged mouth - MMM neck - no JVD heart - RRR, s1 s2, no murmur lungs - CTA b/l; no rales or wheeze abd - soft NT ND BS+ ext - no edema, pulses 2+ b/l skin - generalized pallor psych - oriented to person and place; knew the year and that it was May but could not give date or day Results & Data Results & Data Vital Signs (Past 12 Hours) Vital Signs Temp Pulse Resp BP Pulse Ox O2 Del Method 06/01/24 10:43 36.6 C 85 18 117/64 96 Room Air 06/01/24 06:57 36.5 C 106 H 20 118/68 97 Room Air 06/01/24 02:30 37.0 C 78 18 118/64 97 Room Air Laboratory Results Laboratory Results - last 24 hr 05/31/24 06/01/24 Unknown 06:28 WBC 4.79 L RBC 2.80 L Hgb 8.8 L Hct 24.8 L MCV 88.6 MCH 31.4 MCHC 35.5 RDW Std Deviation 40.9 RDW Coeff of Micheal 12.6 Plt Count 282 MPV 9.5 Sodium 139 Potassium 3.3 L Chloride 108 H Carbon Dioxide 27 Anion Gap 4 BUN 13 Creatinine 0.73 Est Cr Clr Drug Dosing 59.5 eGFR 91.78 BUN/Creatinine Ratio 17.8 Glucose 91 Calcium 8.7 Stl C. cayetanensis PCR Not Detected Stool Rotavirus A PCR Not Detected Stl Adenov F 40/41 PCR Not Detected Stool Astrovirus (PCR) Not Detected Stool Campylobacter PCR Not Detected Stool Cryptosporidium PCR Not Detected Stl E.coli Shiga Tox PCR Not Detected Stl Enterotoxigenic E PCR Not Detected Stool EPEC (PCR) Not Detected Stool EAEC (PCR) Not Detected Stl E. histolytica PCR Not Detected Stool Giardia Lamblia PCR Not Detected Stool Salmonella PCR Not Detected Stool Sapovirus (PCR) Not Detected Stl P. shigelloides PCR Not Detected Stl Shigella/EIEC PCR Not Detected St Y.enterocolitica PCR Not Detected Stool Vibrio (PCR) Not Detected Stl Vibrio cholerae PCR Not Detected Stl Norovirus GI/GII PCR Not Detected Diagnostic Findings Chest CTA 06/01/24 08:26 CT angio chest PE protocol CT DOSE: 294.82 mGy.cm HISTORY: 64 years-old Female with lung ca/weight loss; r/o PE, worsenining lung ca. Acute chest pain and shortness of breath. History of lung cancer. TECHNIQUE: Multiple CTA images of the chest were obtained after the intravenous administration of 112 ml Optiray. Coronal and sagittal MIPS were obtained from the axial data set and were submitted for review. All measurements were obtained according to NASCET criteria. A dose lowering technique was utilized adhering to the principles of ALARA. COMPARISON: CT abdomen and pelvis and chest radiograph 05/27/2024, PET CT 07/11/2023 FINDINGS: CTA: Moderate cardiomegaly. Trace pericardial effusion. Unremarkable thoracic aorta without aneurysm or dissection. No pulmonary emboli identified. CT CHEST: 11 mm peripherally calcified right-sided thyroid nodule. Mild generalized body wall edema. No pathologically enlarged lymph nodes. Small right was small to moderate left pleural effusions. Pulmonary emphysema with bronchial wall thickening. Mild intralobular septal thickening. Dependent bibasilar predominant atelectasis. Stable 7 mm groundglass nodule in the right upper lobe on image 181. Additional previously described subcentimeter nodules are not well seen on today's study and may be obscured. No new nodules are identified. Central airways appear patent. Mild nonspecific distal esophageal wall thickening with adjacent inflammatory stranding. Cholelithiasis. No acute fracture. IMPRESSION: 1. Cardiomegaly with interstitial pulmonary edema, layering pleural effusions with mild dependent bibasilar atelectasis. 2. No pulmonary emboli. 3. No pathologically enlarged lymph nodes or new pulmonary lesions identified. 4. Stable subcentimeter subpleural groundglass nodule of the right upper lobe. 5. Distal esophageal wall thickening redemonstrated which may represent an esophagitis. 6. Cholelithiasis. ACT 112: Negative or not required by law. The above report was generated using voice recognition software. It may contain grammatical, syntax or spelling errors. Electronically signed by: Drake Maxwell M.D. 06/01/2024 10:59 AM PG Care Time/CCT Total # of Minutes Spent Total Time Spent with Patient: Total time spent is greater than 50% in coordination of care (as documented) at patient's floor/unit and/or counseling patient: Coding Level of Care Code 72675 SUB INP/OBS CARE 3/50MIN Diagnoses Septic shock A41.9; R65.21 Acute dehydration E86.0 Acute renal failure N17.9 Ileus K56.7 Enteritis K52.9 Adenocarcinoma of lung, stage 4 C34.90 Brain metastasis C79.31 Anemia D64.9 COPD (chronic obstructive pulmonary disease) J44.9 Acute hypokalemia E87.6 Seizure disorder G40.909 Esophagitis K20.90 Severe protein-calorie malnutrition E43 Acute metabolic encephalopathy G93.41
[2024-06-01] MEDS: FAMOTIDINE 20MG IV PUSH 20 MG/5 ML SYR IV STA (14:24)
[2024-06-01] MEDS: THIAMINE HCL 100 MG TAB PO SCH (23:28)
[2024-06-02 09:25] LABS: BUN Creatinine Ratio 10.5 (10-20); Calcium 8.8 mg/dl (8.6-10.3); Creatinine Clr Calc Pharmacy 51.3 ml/min; Potassium 5.8 mmol/L (3.5-5.1)
[2024-06-02] MEDS: GADOBUTROL 65ML VIAL IV ONE (13:23)
--- NOTE | 2024-06-02 15:29 | Hospitalist Progress Note ---
Date of Service June 02, 2024 Assessment & Plan (1) Septic shock: Plan: present on admission shock was presumed 2nd to sepsis required ICU admission only required [facility] hospital day #1, weaned off --> shock resolved source - GI ? (CT with abnormal bowel loops) however, c diff negative & stool BioFire negative blood & urine cx's remain negative cxr negative for pneumonia CTA chest negative for infectious process Respiratory BioFire negative was on IV zosyn; changed to IV rocephin 05/30 since no infectious process found antibiotics were stopped can't rule out relative adrenal crisis as cause of shock as cortisol level was only 12 in the face of severe illness thus, was treated with IV hydrocortisone currently dexamethasone 2mg daily as long as MRI brain is negative for intracerebral edema will continue to wean PO steroids (2) Acute dehydration: Plan: resolved with resulting JUAN J - also resolved diet as tolerated (3) Acute renal failure: Plan: peak Cr 4 now Cr 0.7 JUAN J resolved prerenal in the setting of #1, #2 BMP with normal creatinine today, notable for potassium 5.8 unclear whether hemolyzed or over replacement, stopped standing potassium replacement recheck potassium at 3 PM today pending (4) Ileus: Plan: as seen on imaging could have been due to severe hypokalemia doubt infectious - stool Biofire and stool c diff both negative resolved (5) Enteritis: Plan: as seen on CT a/p c diff negative stool BioFire negative respiratory BioFire negative due to Keytruda? other? (6) Adenocarcinoma of lung, stage 4: Plan: presented late May 2023 with focal seizure imaging with large left frontal lobe brain mass with edema Tx to [facility] 06/05/23 - resection of L frontal lobe tumor - path c/w adenocarcinoma, lung primary 07/22/23 - 08/06/23 - s/p whole brain XRT with hippocampal sparing currently on Keytruda primary oncologist -- Dr Bradley Amaya, [facility] Heme/onc CT head this admission without obvious brain mets or edema MRI brain summer 2023 - negative for brain mets or other pathology CTA chest today without signs of active lung ca brain MRI obtained today results are pending (7) Brain metastasis: Plan: dx 05/2023, with resection of L frontal lobe brain mets at [facility] on 06/05/23 CT head negative this admission MRI brain (8) Anemia: Plan: Fe studies without Fe deficiency B12 wnl Folate borderline low - cont folic acid 1mg daily H/H remain acceptable (9) COPD (chronic obstructive pulmonary disease): Plan: sats high 90s in RA no exacerbation at this time (10) Acute hypokalemia: Plan: likely multifactorial - diarrhea (GI loss), diuretic phase of ATN (renal loss), and poor PO intake recent mag level 2.4 potassium 5.8 this morning, supplement held repeat potassium pending (11) Seizure disorder: Plan: dx 05/2023 - 2nd to large frontal lobe brain met continue PO keppra 1000mg BID (12) Esophagitis: Plan: as seen on EGD 05/22/24 cont PPI twice daily cont carafate 1gm QID (13) Severe protein-calorie malnutrition: Plan: nearly 30kg weight loss since 05/2023 (73.6 kg --> 46.6 kg) most certainly is due to her stage 4 lung ca add thiamine 200mg BID she recently arranged for [employer] (14) Acute metabolic encephalopathy: Plan: suspect she had component of delirium which has improved she does not seem overtly confused today Plan DVT proph - high risk of DVT - heparin 5000 BID Angeles's friend/neighbor Vivian expressed concerns about patient returning home - Vivian confirmed patient has not been eating/drinking, has been losing weight, failing to thrive, etc. PT and OT recommend correction rehab stay, however, Angeles has refused this both yesterday and today. seems to have been confused earlier in hospital stay but improving. she does not have POA, she has a daughter but is estranged from her, she does have an outpatient medical case worker sent a [place] Correspond[facility] to [facility], informing him of back to back hospital stays Admission and Anticipated Discharge Date Admission Date: May 27, 2024 Subjective Angeles wants to go home because she is tired of being in the hospital currently not having any pain, no dyspnea she tells me she recently got [employer] set up for food delivery Physical Exam 2 Physical Exam: PHYSICAL EXAMINATION Last 24h vital signs reviewed, see documentation in flowsheet General: comfortable appearing, no distress, . Thin cachectic appearing woman sitting on the edge of the bed HEENT: Normocephalic, atraumatic, pupils round and equal, sclerae anicteric, no conjunctival injection, moist mucus membranes Lungs: Normal respiratory effort. Clear to auscultation bilaterally. No RRW Heart: Regular rate and rhythm, no murmurs. No JVD Abdomen: Soft, nontender, nondistended. Bowel sounds present. Extremities: Warm, dry, well-perfused. No extremity edema. Neuro: Alert and oriented x hospital and situation, did not make any confused statements for me, face symmetric, moves 4 extremities well Psych: Normal affect and behavior Results & Data Results & Data Vital Signs (Past 12 Hours) Vital Signs Temp Pulse Resp BP Pulse Ox O2 Del Method 06/02/24 11:11 36.8 C 68 18 111/71 98 Room Air 06/02/24 06:58 36.7 C 72 18 114/72 99 Room Air Laboratory Results 06/01/24 06:28 sodium 134, potassium 5.8, creatinine 0.86 PG Care Time/CCT Total # of Minutes Spent Total Time Spent with Patient: Total time spent is greater than 50% in coordination of care (as documented) at patient's floor/unit and/or counseling patient: Coding Level of Care Code 20527 SUB INP/OBS CARE 2/35MIN Diagnoses Septic shock A41.9; R65.21 Acute dehydration E86.0 Acute renal failure N17.9 Ileus K56.7 Enteritis K52.9 Adenocarcinoma of lung, stage 4 C34.90 Brain metastasis C79.31 Anemia D64.9 COPD (chronic obstructive pulmonary disease) J44.9 Acute hypokalemia E87.6 Seizure disorder G40.909 Esophagitis K20.90 Severe protein-calorie malnutrition E43 Acute metabolic encephalopathy G93.41
--- NOTE | 2024-06-02 15:30 | Magnetic Resonance Report ---
MR brain wo/w con HISTORY: 64 years-old Female h/o brain mets, confusion acutely altered mental status in a patient wi th history of metastatic disease. COMPARISON: Head CT 05/27/2024, brain MRI 09/10/2023. TECHNIQUE: Multiplanar multisequence MRI of the brain was obtained with and without IV contrast FINDINGS: No restricted diffusion to suggest acute or subacute infarct. Partially empty sella. Degenerative ruddy nges of the cervical spine. No acute intracranial hemorrhage, midline shift or abnormal extra-axial c ollection. The study is mildly motion degraded. Prior left frontotemporal craniotomy changes. There is increased T2/FLAIR signal within the white mat ter of the left frontal parietal lobes adjacent to the craniotomy site which is likely posttreatment related and has significantly progressed compared to 09/10/2023. Involutional changes with mild backgro und T2/FLAIR hyperintense foci which may represent a component of chronic microvascular ischemic dise ase. No abnormal enhancement identified to suggest residual or recurrent disease. Mild thickening and enhancement of the dura at the resection site is likely postoperative. Cerebral venous sinuses and major arterial flow voids appear patent. Large right and moderate left ma stoid effusions. Mild mucosal thickening of the ethmoid air cells. IMPRESSION: 1. No acute intracranial abnormality. 2. Prior left-sided craniotomy changes with progressive T2/FLAIR prolongation within the superior lef t frontal and parietal lobes adjacent to the craniotomy site, likely posttreatment related. 3. No pathologic intra-axial enhancement to suggest new or progressive disease. ACT 112: Negative or not required by law. The above report was generated using voice recognition software. It may contain grammatical, syntax o r spelling errors. Dictated: 06/02/2024 1:58 PM Transcribed: 06/02/2024 2:37 PM Matias [id number] Electronically signed by: Drake Maxwell M.D. 06/02/2024 3:28 PM
[2024-06-02] MEDS: MIRTAZAPINE SOLTAB 15 MG PO SCH (19:48)
[2024-06-03 07:12] VITALS: RESP 18
[2024-06-03 11:08] VITALS: TEMP 97.9; O2SAT 98
[2024-06-03 12:27] VITALS: BP 137/75; PULSE 70
--- NOTE | 2024-06-03 19:22 | Discharge Summary ---
Discharge Summary Date of Service June 03, 2024 Principal Dx & Hospital Course #1 = Principal Diagnosis (1) Septic shock: 64 y/o with lung cancer under treatment with keytruda who presented with septic shock. Treated in ICU with IV fluids, pressors for one day, broad-spectrum antibiotics Based on clinical presentation with diarrhea, dilated small bowel on initial CT this was probably a gastroenteritis/colitis. Antibiotics were stopped once shock and symptoms resolved and cultures finalized negative. Keytruda could cause an enteritis but seems fairly unlikely, given quick resolution. c diff negative & stool BioFire negative blood & urine cx's negative CTA chest negative for infectious process Respiratory BioFire negative cortisol level was only 12 in the face of severe illness, was treated with stress dose steroids that were weaned off (2) Acute renal failure: peak Cr 4, resolved to 0.7 caused by dehydration/prerenal and sepsis (3) Ileus: as seen on initial CT imaging - resolved, tolerating oral intake (4) Adenocarcinoma of lung, stage 4: presented late May 2023 with focal seizure imaging with large left frontal lobe brain mass with edema Tx to [facility] 06/05/23 - resection of L frontal lobe tumor - path c/w adenocarcinoma, lung primary 07/22/23 - 08/06/23 - s/p whole brain XRT with hippocampal sparing currently on Keytruda primary oncologist -- Dr Bradley Amaya, [facility] Heme/onc CT head this admission without obvious brain mets or edema MRI brain summer 2023 - negative for brain mets or other pathology CTA chest today without signs of active lung ca brain MRI obtained this admission because of lingering confusion - no change I updated Dr. Amaya about this admission today (5) Brain metastasis: dx 05/2023, with resection of L frontal lobe brain mets at [facility] on 06/05/23 see above (6) Anemia: Fe studies without Fe deficiency B12 wnl Folate borderline low - cont MVI (7) COPD (chronic obstructive pulmonary disease): sats high 90s in RA no exacerbation at this time (8) Acute hypokalemia: likely multifactorial - diarrhea (GI loss), diuretic phase of ATN (renal loss), and poor PO intake recent mag level 2.4 replaced, resolved (9) Seizure disorder: dx 05/2023 - 2nd to large frontal lobe brain met continue PO keppra 1000mg BID (10) Esophagitis: as seen on EGD 05/22/24 cont PPI twice daily (11) Severe protein-calorie malnutrition: nearly 30kg weight loss since 05/2023 (73.6 kg --> 46.6 kg) most certainly is due to her stage 4 lung ca add thiamine 200mg BID x 1 month then 100 mg daily continue MVI she recently arranged for [employer]als [employer] Wheels - confirmed with outpatient rn case mgr already on mirtazapine 30 mg HS for appetite stimulation and neighbor tries to make sure she drinks high protein boost daily (12) Acute metabolic encephalopathy: she had component of delirium which has improved a lot over last 48h now oriented x 4 excepting she was off by two days on the date does show limited insight/judgment in that she's struggling at home but refuses rehab and has poor safety awareness. She does retain decisional capacity based on my interactions with her yesterday and today, however. Plan Angeles's friend/neighbor Vivian expressed concerns about patient returning home - Vivian confirmed patient has not been eating/drinking, has been losing weight, failing to thrive, etc. PT and OT recommend senior care rehab stay, however, Angeles refused this repeatedly. We made referral to home health. Her outpatient rn case mgr was contacted. Meal delivery was recently started. I updated Vivian by phone with Angeles's permission today. Admission HPI Per Admitting Provider The patient is a 64-year-old female past medical history including left lung adenocarcinoma, esophagitis, focal motor seizure, B12 deficiency, iron deficiency anemia, seizure-like activity, hyperlipidemia, allergic symptoms, hypomagnesemia, GERD and COPD. She was most recently admitted to [facility] from 05/23-05/23/2024 with nausea and vomiting, thought possibly secondary to Keytruda, and had acute kidney injury. She presents to the emergency department with similar symptoms as noted above. The patient was found to be hypotensive in the emergency department, received IV fluids and was started on Levophed infusion, and was admitted to the ICU for further treatment Discharge Exam PHYSICAL EXAMINATION Last 24h vital signs reviewed, see documentation in flowsheet General: comfortable appearing, no distress, . Thin cachectic appearing woman sitting on the edge of the bed once again - no change in exam 06/03 HEENT: Normocephalic, atraumatic, pupils round and equal, sclerae anicteric, no conjunctival injection, moist mucus membranes Lungs: Normal respiratory effort. Clear to auscultation bilaterally. No RRW Heart: Regular rate and rhythm, no murmurs. No JVD Abdomen: Soft, nontender, nondistended. Bowel sounds present. Extremities: Warm, dry, well-perfused. No extremity edema. Neuro: Alert and oriented x hospital and situation, can tell me about her next planned chemo her home setup and agreeable to home health, did not make any confused statements for me, face symmetric, moves 4 extremities well Psych: Normal affect and behavior Discharge Plan Discharge Items Patient Disposition: Home - Home Health Services Reason For Visit: SEPTIC SHOCK, ACUTE RENAL FAILURE Discharge Diagnosis: septic shock, JUAN J Activity: Resume your previous activity Weightbearing: Full weightbearing Non-emergency contact: Primary Care Provider and Oncologist Call non-emergency contact if: you have any medication questions, your symptoms worsen and you have a fever Follow-up/Referrals: Bradley Amaya MD [Surgeon] - Amarilys Hamilton CRNP [Primary Care Provider] - 06/09/24 9:00 am Diet: Regular Addtl Attending Provider Instructions: You presented with shock - its possible that it was caused by a gastrointestinal infection (enteritis, potentially from a virus) however we did not identify a specific infection A reaction to keytruda is possible but seems unlikely because you improved so fast -please follow up with your oncologist prior to continuing your chemotherapy You have become severely malnourished -take a protein supplement twice a day - like boost, ensure, a whey shake or protein bar -take a multivitamin every day to prevent deficiencies -you're at risk for thiamine (B1) deficiency - I recommend taking thiamine 200 mg twice a day for a month, then continue 100 mg daily after that -its ok to stop the fenofibrate and atorvastatin at this time - you are very thin and not eating enough to benefit from those right now You had some confusion (delirium) related to being so ill in the ICU. This has cleared up. Brain MRI was done but fortunately there were no new findings. Home health PT and OT will help you improve your strength. It was a pleasure taking care of you in the hospital Marcela Valadez MD Pending Studies at Discharge: No Stand-Alone Forms: My [facility] [employer], Smoking Cessation Medications and DC Order Prescriptions: New thiamine HCl (vitamin B1) 100 mg Tablet 200 mg PO BID Qty: 0 0RF Rx Instructions: may buy over the counter. 200 mg bid for a month then decrease to 100 mg da rom Continued mirtazapine 30 mg tablet 30 mg PO HS hydroxyzine HCl 25 mg tablet 25 mg PO TID PRN (Reason: Anxiety) Spiriva Respimat 2.5 mcg/actuation mist 2 puff INHALATION DAILY albuterol sulfate 2.5 mg /3 mL (0.083 %) solution for nebulization 2.5 mg continuous nebulization UD PRN (Reason: Shortness Of Breath Or Wheezing) Rx Instructions: Every 4-6 hours cholecalciferol (vitamin D3) [Vitamin D3] 50 mcg (2,000 unit) tablet 50 mcg PO DAILY docusate sodium 100 mg capsule 100 mg PO QID PRN (Reason: contipation) levetiracetam [Keppra] 1,000 mg tablet 1,000 mg PO BID Qty: 60 0RF magnesium oxide 400 mg (241.3 mg magnesium) Tablet 400 mg PO BID Qty: 60 0RF sennosides [senna] 8.6 mg tablet 8.6 mg PO BID cetirizine 10 mg tablet 10 mg PO DAILY ondansetron HCl 8 mg tablet 8 mg PO Q8H PRN (Reason: Nausea) potassium chloride 10 mEq tablet,ER particles/crystals 10 meq PO BID pantoprazole [Protonix] 40 mg tablet,delayed release (DR/EC) 40 mg PO DAILY Qty: 30 0RF promethazine 6.25 mg/5 mL syrup 6.25 mg PO TID PRN (Reason: nausea and vomiting) Qty: 120 0RF Rx Instructions: May make you dizzy or drowsy Discontinued atorvastatin 80 mg tablet 80 mg PO DAILY fenofibrate 160 mg tablet 160 mg PO DAILY Discharge Orders: Discharge Order (Routine); Ordered 06/03/24 Ordered By: Marcela Valadez Admission Data Admit Date/Time: 05/27/24 19:56 Attending Provider: Marcela Valadez Admit Provider: Miguel Noyola Primary Care Provider: Amarilys Hamilton Other Providers: [facility]; Miguel Noyola; Chinedu Louis; Joyce Sepulveda Other Interventions: Discharge Summary Assessment (RN) Last Done: 06/03/24 12:26 Hospital Stay Data Consultations 05/27/24 19:19 ED Decision to Admit Stat 05/27/24 21:06 Consult Customer Support Specialist Routine 05/28/24 09:41 Consult Palliative Care Routine Diagnostic Imagining Performed 05/27/24 17:24 CT Abd and Pelvis [CT abd pelvis wo con] Stat 05/27/24 17:49 CT head/brain wo con Stat 06/01/24 08:26 CT angio chest PE protocol Routine 06/02/24 07:00 MR brain wo/w con Routine Pending Results Patient Have Any Pending Studies at Discharge: No Discharge Instructions Given to Patient (Per Discharging Provider) You presented with shock - its possible that it was caused by a gastrointestinal infection (enteritis, potentially from a virus) however we did not identify a specific infection A reaction to keytruda is possible but seems unlikely because you improved so fast -please follow up with your oncologist prior to continuing your chemotherapy You have become severely malnourished -take a protein supplement twice a day - like boost, ensure, a whey shake or protein bar -take a multivitamin every day to prevent deficiencies -you're at risk for thiamine (B1) deficiency - I recommend taking thiamine 200 mg twice a day for a month, then continue 100 mg daily after that -its ok to stop the fenofibrate and atorvastatin at this time - you are very thin and not eating enough to benefit from those right now You had some confusion (delirium) related to being so ill in the ICU. This has cleared up. Brain MRI was done but fortunately there were no new findings. Home health PT and OT will help you improve your strength. It was a pleasure taking care of you in the hospital Marcela Valadez MD Total Time Total Time Spent Total Time Spent (In Minutes): I personally spent: 45 minutes today on clinical care activities including: reviewing chart notes and vital signs discussion with outpatient provider discussion with clinical manager home care examining and counseling the patient writing orders writing prescriptions, discharge instructions documentation Coding Level of Care Code 52145 INP/OBS DISCH >30 MIN Diagnoses Septic shock A41.9; R65.21 Acute renal failure N17.9 Ileus K56.7 Adenocarcinoma of lung, stage 4 C34.90 Brain metastasis C79.31 Anemia D64.9 COPD (chronic obstructive pulmonary disease) J44.9 Acute hypokalemia E87.6 Seizure disorder G40.909 Esophagitis K20.90 Severe protein-calorie malnutrition E43 Acute metabolic encephalopathy G93.41
--- NOTE | 2024-06-06 07:26 | Coding Query ---
CODING QUERY To promote full compliance with coding requirements relating to patient care, provider participation is requested in all cases of cane flume watcher uncertainty. Please assist us with the question(s) below: Coding Question(s): Pt admitted with Septic Shock. ED notes mention Troponin 31.1. Pt transferred to CCU . CCU notes documented NSTEMI. Echo done, unchanged from a year ago. Please check below the phrase that describes the NSTEMI. Thanks for your help. Madhu Gold [facility] Physician's Response(s): ____x__ Pt had NSTEMI, POA type 2 nstemi, mild myocardial demand ischemia related to sepsis Pt did not have NSTEMI Other: please document: Principal Diagnosis: "that condition established after study, to be chiefly responsible for occasioning the admission of the patient to the hospital for care." Co-Existing Principal Diagnosis: "when two or more diagnoses equally meet the criteria for principal diagnosis as determined by the circumstances of admission, diagnostic work up, and/or therapy provided, and the Alphabetic Index, Tabular List, or another coding guideline does not provide sequencing direction, any one of the diagnoses may be sequenced first." "When the physician has documented what appears to be a current diagnosis in the body of the record, but has not included the diagnosis in the final diagnostic statement, the physician should be asked whether the diagnosis should be added." (Source Coding Clinic 2 QTR90. p3-4) GENA
== END 2024-06-03 13:50 | disposition home health service (06) | DRG 871 ==
LOC: ED 16:12 → SUATTDRO 19:56 → 1E 19:56 → 2S 05-30 18:38

== ENCOUNTER 2024-06-10 08:53 | Observation (INO) ==
[2024-06-10 09:44] LABS: Basophils # (auto) 0.12 K/uL (0.00-0.20); Basophils % (auto) 0.9 %; Eosinophils # (auto) 0.02 K/uL (0.00-0.50); Eosinophils % (auto) 0.2 %; Hematocrit (blood only) 43.5 % (37.0-47.0); Hemoglobin 13.9 g/dl (12.0-16.0); Immature Granulocytes # (auto) 0.07 K/uL (0.01-0.20); Immature Granulocytes % (auto) 0.5 %; Lymphocytes # (auto) 2.04 K/uL (1.20-3.40); Lymphocytes % (auto) 15.8 %; Mean Platelet Volume 9.7 fL (9.4-12.4); Monocytes # (auto) 1.56 K/uL (0.11-0.59); Monocytes % (auto) 12.1 %; Neutrophils # (auto) 9.08 K/uL (1.40-6.50); Neutrophils % (auto) 70.5 %; Platelet Count 443 K/uL (130-400); RDW Coefficient of Variation 14.4 % (11.5-14.5); RDW Standard Deviation 53.1 fL (36.4-46.3); Red Blood Count 4.35 M/uL (4.20-5.40); White Blood Count 12.89 K/ul (4.8-10.8)
[2024-06-10] MEDS: SODIUM CHLORIDE 0.9% 500 ML IV ONE (09:56)
--- NOTE | 2024-06-10 10:03 | XRay Report ---
XR chest 1V portable HISTORY: 64 years-old Female weakness COMPARISON: 06/01/2024 TECHNIQUE: AP view of the chest FINDINGS: Cardiomediastinal and hilar silhouettes are within normal limits. No pneumothorax, pleural effusion o r airspace consolidation. Emphysema with chronic interstitial coarsening. Bones appear grossly intact . IMPRESSION: Emphysema without acute process. ACT 112: Negative or not required by law. The above report was generated using voice recognition software. It may contain grammatical, syntax o r spelling errors. Electronically signed by: Drake Maxwell M.D. 06/10/2024 10:02 AM
[2024-06-10 10:08] LABS: Alanine Aminotransferase 22 U/L (7-52); BUN Creatinine Ratio 6.1 (10-20); Bilirubin,Total 0.5 mg/dl (0.2-1.0); Blood Urea Nitrogen 26 mg/dl (6-23); Calcium 10.5 mg/dl (8.6-10.3); Carbon Dioxide 12 mmol/L (21-32); Chloride 99 mmol/L (98-107); Creatinine Clr Calc Pharmacy 8.7 ml/min; Glucose 105 mg/dl (70-99(Fasting)); Total Protein 7.9 gm/dl (6.0-8.3); Troponin I High Sensitivity 23.9 pg/ml (0-14)
[2024-06-10] MEDS: SODIUM CHLORIDE 0.9% 1,000 ML IV ONE (10:22)
[2024-06-10 10:41] LABS: Base Excess VBG -20.5 mEq/L; HCO3 VBG 9 mmol/L; Oxygen Saturation VBG < 60.0 %; PCO2 VBG 38 mmHg (38-50); PO2 VBG 25 mmHg
[2024-06-10 10:50] LABS: Adenovirus PCR Not Detected (NotDetected); Bordetella parapertussis PCR Not Detected (NotDetected); Bordetella pertussis PCR Not Detected (NotDetected); Chlamydia pneumoniae PCR Not Detected (NotDetected); Coronavirus 229E PCR Not Detected (NotDetected); Coronavirus CoV-2 (COVID19)PCR Not Detected (NotDetected); Coronavirus HKU1 PCR Not Detected (NotDetected); Coronavirus NL63 PCR Not Detected (NotDetected); Coronavirus OC43PCR Not Detected (NotDetected); Human Metapneumovirus PCR Not Detected (NotDetected); Influenza A PCR Not Detected (NotDetected); Influenza B PCR Not Detected (NotDetected); Mycoplasma pneumoniae PCR Not Detected (NotDetected); Parainfluenza Virus 1 PCR Not Detected (NotDetected); Parainfluenza Virus 2 PCR Not Detected (NotDetected); Parainfluenza Virus 3 PCR Not Detected (NotDetected); Parainfluenza Virus 4 PCR Not Detected (NotDetected); Respiratory Syncytial VirusPCR Not Detected (NotDetected); Rhinovirus/Enterovirus PCR Not Detected (NotDetected)
[2024-06-10 10:53] LABS: T4 Free Thyroxine 1.33 ng/dl (0.61-1.60)
[2024-06-10 11:08] LABS: Albumin Level 2.2 gm/dl (3.4-5.0); Magnesium 1.1 mg/dl (1.7-2.4); Potassium 3.2 mmol/L (3.5-5.1)
--- NOTE | 2024-06-10 11:41 | Emergency Department Note ---
Impression & Plan Acute dehydration, Acute kidney failure, Comfort measures only status, Acute hypoxemic respiratory failure ED Provider Note NAME: LONDON EASON AGE: 64 SEX: F : 1960 ARRIVES VIA: Ambulance INFORMANT: Patient, ED PROVIDER(S): Farhat Amaya MD CHIEF COMPLAINT: Altered mental status, hypoxia HPI: This is a 64-year-old female with metastatic cancer presenting for altered mental status. Patient reportedly told the EMS that she would like hospice manage at this time. She has lung cancer that is metastatic to bone and brain as well as liver. Upon record review was present patient was here for dehydration and possible sepsis. Patient was discharged home. Family friend who is her only cashier courtesy booth, is with her at bedside. Since being discharged patient has let the friend know that she has no with a live anymore. She states she does not want to keep fighting. I discussed close care extensively as below. At this time patient is unable to answer my questioning. ROS: Unable to obtain PHYSICAL EXAMINATION: General: Uncomfortable, gasping for air, temporal wasting Head: Eyes closed, normocephalic Eyes: Eyes closed dry mucous membranes Ear, nose, throat: Normal external exam Neck: Normal range of motion Respiratory: lungs clear to auscultation bilaterally Cardiovascular: Tachycardic GI: soft, nontender Extremities: nontender, moves all extremities Neuro: No focal deficits, symmetric face Skin: Poor skin turgor MEDICAL DECISION MAKING: This is a 64-year-old female with metastatic cancer presenting felt metastatic. Patient presented frequently altered at this time, oxygen saturation is around 60%. Patient is tachycardic. Appears very dry on my exam. Consider dehydration. As per family friend, goals of care were discussed with patient has a form at home saying she does not want compressions or intubation. I discussed next steps with the friend who is her only current cashier courtesy booth who states that patient would not want invasive measures at this time. She does want a focus on comfort as well. Will do screening blood work, chest x-ray. -Blood work significant abnormal with a creatinine that is over 4 with a baseline of 0.7-0.8. This appears concerning for severe dehydration. Patient's lactic acid was 8.9 otherwise. Patient is currently nonrebreather. With patient's request for noninvasive measures, will not escalate to intubation at this time. -Otherwise slight slight leukocytosis is noted, electrolytes are significantly abnormal including hyper natremia, hypokalemia, low magnesium. -Based on conversation with friend, will admit to hospitalist service for comfort measures at this time. Differential diagnosis: Pneumonia, PE, sepsis, dehydration ER treatment provided: See below Independent History obtained from: Friend Diagnostics interpreted by me: ECG: None Cardiac Monitoring: An order was placed for continuous cardiac monitoring. The monitor shows a rate of 115 with sinus rhythm. Laboratory studies: As stated above and show below. Imaging studies: See below. Critical Care Note: I have personally spent 35 minutes of critical care time in the direct management of this patient. This includes bedside care, interpretation of diagnostic studies, and testing, discussion with consultants, patient, and family members, and other required patient management activities. This 35 minutes is in excess of all separately billable procedures. Past Med/Surg History Problem List (Updated 06/12/24 @ 19:31 by Farhat Amaya MD) Acute hypoxemic respiratory failure (Acute) Comfort measures only status (Acute) Acute kidney failure (Acute) Acute dehydration (Acute) Comfort measures only status Acute metabolic encephalopathy Severe protein-calorie malnutrition Seizure disorder COPD (chronic obstructive pulmonary disease) Anemia Brain metastasis Adenocarcinoma of lung, stage 4 Colitis Palliative care by specialist Altered mental status Enteritis Ileus Admitted to intensive care unit Septic shock Acute dehydration (Acute) Elevated lactic acid level (Acute) Non-ST elevation MS (NSTEMI) (Acute) Leukocytosis (Acute) Severe sepsis (Acute) Acute renal failure (Acute) JUAN J (acute kidney injury) (Acute) Hypomagnesemia (Acute) Nausea, vomiting, and diarrhea (Acute) Encounter for pre-operative examination Adenocarcinoma of left lung Skin lesions Esophagitis JUAN J (acute kidney injury) Prolonged QT interval Hypocalcemia (Acute) Acute hypokalemia (Acute) Hypomagnesemia (Acute) 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 Focal motor seizure B12 deficiency Dilated bile duct Hypomagnesemia Tachycardia Iron deficiency anemia Fatigue Frontal headache Alcohol use disorder Tobacco use disorder Seizure-like activity Muscle spasm Vitamin D deficiency Osteoarthritis Vasogenic brain edema Traumatic hematoma of forehead (Acute) Focal seizure (Acute) Medical History Anemia Muscle spasm Brain metastasis Right arm weakness Brain lesion Anxiety Allergic rhinitis Depression GERD (gastroesophageal reflux disease) COPD (chronic obstructive pulmonary disease) Hyperlipidemia Hypertension Surgical History H/O craniotomy 06/05/23 - History of surgery For right arm fracture S/P hysterectomy Family History Mother , age 69 of liver cancer Liver cancer Father , in his early 70s Myocardial infarction Temporary pacemaker Brother Myocardial infarction Sister Stroke Hypertension Daughter No problems noted. Social History Smoking Status: Current every day smoker Tobacco Type: Cigarettes Age Started Using Tobacco: 16; packs per day: 0.25; Cigarettes Per Day: 1/2 pack to 1 pack for the past 40-50 years; Second Hand Exposure: No; Do You Dip or Chew Tobacco: No; Tobacco Cessation Education Requested by Patient: No Hx Alcohol Use: No Hx Substance Use: No Preferred Language: Guyanese Communication Ability: Effective Visual Impairment: No Limitations Hearing Ability: Normal [employer] Required: No Beliefs That Will Affect Care: None marital status: / Current Living Situation: Alone current occupational status: retired 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 How many Children do You have: 1 Other Information That Helps Us Care for You: No Feels Safe at Home: Yes Safety Concerns: Feels Safe At This Time Diet: regular caffeine: Yes (1 cup/day) during the past year weight has: remained stable Assistive Devices: None Allergies Allergies Allergy/AdvReac Type Severity Reaction Status Date / Time No Known Allergies Allergy Unverified 05/20/24 12:50 Home Meds Home Medications Medication Instructions Recorded Confirmed albuterol sulfate 2.5 mg/3 mL 2.5 mg continuous nebulization UD 06/02/23 06/10/24 (0.083 %) solution for nebulization PRN Shortness Of Breath Or Wheezing cholecalciferol (vitamin D3) 50 50 mcg PO DAILY 06/02/23 06/10/24 mcg (2,000 unit) tablet (Vitamin D3) hydroxyzine HCl 25 mg tablet 25 mg PO TID PRN Anxiety 06/02/23 06/10/24 mirtazapine 30 mg tablet 30 mg PO HS 06/02/23 06/10/24 tiotropium bromide 2.5 2 puff inhalation DAILY 06/02/23 06/10/24 mcg/actuation mist for inhalation (Spiriva Respimat) docusate sodium 100 mg capsule 100 mg PO QID PRN contipation 09/09/23 06/10/24 cetirizine 10 mg tablet 10 mg PO DAILY 05/20/24 06/10/24 ondansetron HCl 8 mg tablet 8 mg PO Q8H PRN Nausea 05/20/24 06/10/24 potassium chloride 10 mEq 10 meq PO BID 05/20/24 06/10/24 tablet,extended release(part/cryst) sennosides 8.6 mg tablet (senna) 8.6 mg PO BID 05/20/24 06/10/24 Previous Rx's Medication Instructions Recorded levetiracetam 1,000 mg tablet 1,000 mg PO BID #60 tabs 09/11/23 (Keppra) magnesium oxide 400 mg (241.3 mg 400 mg PO BID #60 tabs 09/11/23 magnesium) tablet pantoprazole 40 mg tablet,delayed 40 mg PO DAILY #30 tabs 05/13/24 release (Protonix) promethazine 6.25 mg/5 mL oral 6.25 mg (5 mL) PO TID PRN nausea 05/13/24 syrup and vomiting #120 mL thiamine HCl (vitamin B1) 100 mg 200 mg (2 x 100 mg) PO BID #0 tabs 06/03/24 tablet Results & Data (ED) Vital Signs Vital Signs - 24 hr 06/10/24 09:04 06/10/24 09:07 06/10/24 09:07 Temperature Temperature Source Pulse Rate 116 H 116 H Pulse Rate [Apical] Respiratory Rate 30 H Respiratory Effort / Characteristics Labored Respiratory Depth Shallow Blood Pressure [Right Arm] Blood Pressure Mean [Right Arm] Blood Pressure Position [Right Arm] Pulse Oximetry Oxygen Delivery Method Non-rebreather Sepsis Recent Fever Within 48 Hours No Sepsis New/Unexplained Change in Mental Status Yes Sepsis Action Taken by Nursing Physician Notified 06/10/24 09:07 06/10/24 09:50 06/10/24 09:53 Temperature 35.1 C L 35.1 C L Temperature Source Rectal Rectal Pulse Rate Pulse Rate [Apical] Respiratory Rate 30 H Respiratory Effort / Characteristics Labored Respiratory Depth Shallow Blood Pressure [Right Arm] Blood Pressure Mean [Right Arm] Blood Pressure Position [Right Arm] Pulse Oximetry Oxygen Delivery Method Sepsis Recent Fever Within 48 Hours Sepsis New/Unexplained Change in Mental Status Sepsis Action Taken by Nursing 06/10/24 09:53 06/10/24 10:20 06/10/24 11:32 Temperature 33.7 C L Temperature Source [place] Cath ( Temp Sensing) Pulse Rate Pulse Rate [Apical] 115 H 115 H Respiratory Rate 35 H 33 H Respiratory Effort / Characteristics Accessory Muscle Use Accessory Muscle Use Labored Respiratory Depth Shallow Shallow Blood Pressure [Right Arm] 98/48 L 136/92 Blood Pressure Mean [Right Arm] 64 106 Blood Pressure Position [Right Arm] Lying Pulse Oximetry 60 L Oxygen Delivery Method Non-rebreather Non-rebreather Non-rebreather Sepsis Recent Fever Within 48 Hours Sepsis New/Unexplained Change in Mental Status Sepsis Action Taken by Nursing Laboratory Data 06/10/24 09:15 06/10/24 10:33 Lab Results 06/10/24 06/10/24 06/10/24 Range/Units 09:15 09:24 10:33 WBC 12.89 H (4.8-10.8) K/ul RBC 4.35 (4.20-5.40) M/uL Hgb 13.9 (12.0-16.0) g/dl Hct 43.5 (37.0-47.0) % MCV 100.0 (80.0-100.0) fL MCH 32.0 (25.0-34.0) pg MCHC 32.0 (32.0-36.0) g/dL RDW Std Deviation 53.1 H (36.4-46.3) fL RDW Coeff of Micheal 14.4 (11.5-14.5) % Plt Count 443 H (130-400) K/uL MPV 9.7 (9.4-12.4) fL Immature Gran % (Auto) 0.5 % Neut % (Auto) 70.5 % Lymph % (Auto) 15.8 % [place] % (Auto) 12.1 % Eos % (Auto) 0.2 % Baso % (Auto) 0.9 % Neut # (Auto) 9.08 H (1.40-6.50) K/uL Lymph # (Auto) 2.04 (1.20-3.40) K/uL [place] # (Auto) 1.56 H (0.11-0.59) K/uL Eos # (Auto) 0.02 (0.00-0.50) K/uL Baso # (Auto) 0.12 (0.00-0.20) K/uL Immature Gran # (Auto) 0.07 (0.01-0.20) K/uL VBG pH 7.00 L (7.36-7.41) VBG pCO2 38 (38-50) mmHg VBG pO2 25 mmHg VBG HCO3 9 mmol/L VBG O2 Saturation < 60.0 % VBG Base Excess -20.5 mEq/L Sodium TNP 148 H Potassium TNP 3.2 L Chloride 99 (98-107) mmol/L Carbon Dioxide 12 L (21-32) mmol/L Anion Gap TNP BUN 26 H (6-23) mg/dl Creatinine 4.23 H (0.6-1.2) mg/dl Est Cr Clr Drug Dosing 8.7 ml/min eGFR 11.15 BUN/Creatinine Ratio 6.1 L (10-20) Glucose 105 H (70-99(Fasting)) mg/dl Lactate 8.9 H* (0.4-2.0) mmol/L Calcium 10.5 H (8.6-10.3) mg/dl Magnesium TNP 1.1 L Total Bilirubin 0.5 (0.2-1.0) mg/dl AST TNP 29 ALT 22 (7-52) U/L Alkaline Phosphatase TNP 18 L Troponin I High Sens 23.9 H 15.3 H D (0-14) pg/ml Total Protein 7.9 (6.0-8.3) gm/dl Albumin TNP 2.2 L Globulin TNP Albumin/Globulin Ratio TNP TSH 13.230 H (0.300-4.500) uIu/ml Free T4 1.33 (0.61-1.60) ng/dl Adenovirus (PCR) Not Detected (NotDetected) B. pertussis DNA (PCR) Not Detected (NotDetected) B.parapertussis DNA PCR Not Detected (NotDetected) C. pneumoniae DNA (PCR) Not Detected (NotDetected) Coronavirus OC43 (PCR) Not Detected (NotDetected) Coronavirus HKU1 (PCR) Not Detected (NotDetected) Coronavirus 229E (PCR) Not Detected (NotDetected) SARS-CoV-2 (PCR) Not Detected (NotDetected) Coronavirus NL63 (PCR) Not Detected (NotDetected) Human Metapneumovir PCR Not Detected (NotDetected) Influenza Type A (PCR) Not Detected (NotDetected) Influenza Type B (PCR) Not Detected (NotDetected) M. pneumoniae (PCR) Not Detected (NotDetected) Parainfluenza 1 (PCR) Not Detected (NotDetected) Parainfluenza 2 (PCR) Not Detected (NotDetected) Parainfluenza 3 (PCR) Not Detected (NotDetected) Parainfluenza 4 (PCR) Not Detected (NotDetected) RSV (PCR) Not Detected (NotDetected) Entero/Rhino (PCR) Not Detected (NotDetected) Administered Medications Discontinued Medications Sodium Chloride (Nss) 500 mls @ 999 mls/hr IV .Q31M ONE Stop: 06/10/24 09:52 Last Infusion: 06/10/24 09:56 Dose: Infused Documented By: Admin: 06/10/24 09:56 Dose: 999 mls/hr Documented By: VALENTINE Sodium Chloride (Nss) 1,000 mls @ 999 mls/hr IV .Q1H1M ONE Stop: 06/10/24 11:18 Last Infusion: 06/10/24 11:21 Dose: Infused Documented By: Admin: 06/10/24 10:22 Dose: 999 mls/hr Documented By: VALENTINE Hydromorphone HCl (Dilaudid) 100 mg in 100 mls @ 0.3 mls/hr IV .Q96H GIBSON; Protocol Stop: 06/24/24 12:59 Last Titration: 06/11/24 05:20 Dose: Infused Documented By: NANCY Co-signed By: KIM Titration: 06/10/24 19:05 Dose: 0.3 mg/hr, 0.3 mls/hr Documented By: NANCY Co-signed By: [facility] Admin: 06/10/24 13:54 Dose: 0.3 mg/hr, 0.3 mls/hr Documented By: DIONICIO Co-signed By: KATHY Levetiracetam (Levetiracetam 500 Mg/5 Ml Vial) 1,000 mg IV Q12H GIBSON Stop: 07/10/24 20:59 Last Admin: 06/10/24 20:37 Dose: 1,000 mg Documented By: NANCY Morphine Sulfate (Morphine Sulfate 2 Mg/Ml Carp) 2 mg IV NOW STA Stop: 06/10/24 11:40 Last Admin: 06/10/24 11:43 Dose: 2 mg Documented By: [employer] [facility] Data Radiologist's Impression: Chest X-Ray 06/10/24 09:14 XR chest 1V portable HISTORY: 64 years-old Female weakness COMPARISON: 06/01/2024 TECHNIQUE: AP view of the chest FINDINGS: Cardiomediastinal and hilar silhouettes are within normal limits. No pneumothorax, pleural effusion or airspace consolidation. Emphysema with chronic interstitial coarsening. Bones appear grossly intact. IMPRESSION: Emphysema without acute process. ACT 112: Negative or not required by law. The above report was generated using voice recognition software. It may contain grammatical, syntax or spelling errors. Electronically signed by: Drake Maxwell M.D. 06/10/2024 10:02 AM Discharge Plan Visit Data Chief Complaint: Weakness Stated Complaint: ALOC ED Provider: Farhat Amaya Discharge Problem: Acute dehydration, Acute kidney failure, Comfort measures only status, Acute hypoxemic respiratory failure Patient Disposition: Admitted As Inpatient Discharge Instructions Interventions: ED Discharge Assessment Last Done: 06/10/24 13:29
[2024-06-10] MEDS: MoRPHine SULFATE 2 MG/ML CARP IV STA (11:43)
[2024-06-10 11:55] LABS: Troponin I High Sensitivity 15.3 pg/ml (0-14)
--- NOTE | 2024-06-10 11:56 | History & Physical Report ---
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 SpO2 60% on nonrebreather (15L/min) on arrival VBG pH 7.00 on arrival Discussed with both patient and patient's friend/medical POA (Vivian) at bedside, and they both wish to transition to DRYWALL TAPER HELPER at this time Palliative care consult appreciated Dilaudid COMMERCIAL ART INSTRUCTOR pump Slow titration off of nonrebreather DRYWALL TAPER HELPER status (2) Seizure disorder: Plan: Continue Keppra (3) Adenocarcinoma of lung, stage 4: (4) Brain metastasis: (5) Severe protein-calorie malnutrition: (6) COPD (chronic obstructive pulmonary disease): (7) JUAN J (acute kidney injury): (8) Hypomagnesemia: (9) Tachycardia: (10) Alcohol use disorder: (11) Tobacco use disorder: Plan Disposition: DRYWALL TAPER HELPER DNR/DNI History of Present Illness Chief Complaint: Weakness Primary Care Provider: LUCHO Johnsone is a 64-year-old female with PMH of septic shock, alcohol use disorder, tobacco use disorder, seizure disorder, iron deficiency anemia, adenocarcinoma of the lung (stage IV; mets to brain, lung, bone, and liver), COPD, and acute metabolic encephalopathy. She presented via EMS on 06/10 after her friend checked up on her and found her to be altered, james in color, and unable to speak. Patient's friend (Vivian) is at the bedside and provides most of the history. Vivian has been caring for the patient over the past year throughout her cancer journey. The patient lives in an apartment by herself above Vivian. Patient was recently discharged from [facility] on Wednesday [facility]/06. Patient's friend reports that she was doing okay up until Saturday when she fell onto the ground; this was an unwitnessed fall; unsure if she hit her head, but does note that there has been a bruise there since Saturday. Friend did not hear from her at all on Saturday, and then when she found her today on Saturday, she noticed an acute change in cognitive baseline with the patient; the patient seems "distraught" and was not coherent like she usually is. Patient reports she had not been eating. She normally follows with Dr. Amaya at [facility] for her cancer treatment, and when Vivian reached out to them about canceling her appointment, they called in ambulance for her based on what she was saying. Vivian reports that the patient said she wanted "hospice" while in her apartment, and this was reconfirmed with EMS. Vivian reports that she is medical POA/medical proxy and has paperwork to this affect. Vivian did not bring in paperwork on arrival in her haste to bring her to the hospital, but is working to obtain it. Patient does reconfirm this at the bedside, and reports that she would want her friend (Vivian) to be her decision-maker in an medical emergency. At time of admission, patient was less altered and was able to state where she was as well as the month of the year. Risks and benefits were discussed with the patient, and while the option for ICU level of care requiring intubation was presented to her, patient reports that she would prefer to go comfort measures only at this point. She is okay with us reaching out to her daughter (Dora) and providing updates. Additional symptoms at this time include fever, chills, hacking cough, and mild chest/back pain. SpO2 was 87% on RA on EMS arrival. She was recently discharged from [facility] on Thursday 06/07 for dehydration and failure to thrive. At time of admission, patient is tachycardic at 115 bpm, tachypneic at 33 RPM, hypoxic at 60% on nonrebreather, and hypothermic at 33.7 C. ED course: Morphine sulfate 2 mg IV NSS 1500 mL IV ROS: Patient endorses fatigue, fever, chills, chest pain, back pain, SOB, and hacking cough. Patient denies burning with urination. Daughter (Dora Child) phone #: [phone] Gamboa's attestation for details on conversation with daughter over the phone. Of note, the daughter also reports that Vivian is medical POA. Allergies Allergy/AdvReac Type Severity Reaction Status Date / Time No Known Allergies Allergy Unverified 05/20/24 12:50 Home Medications Medication Instructions Recorded Confirmed Type albuterol sulfate 2.5 mg/3 mL 2.5 mg continuous nebulization UD 06/02/23 06/10/24 History (0.083 %) solution for nebulization PRN Shortness Of Breath Or Wheezing cholecalciferol (vitamin D3) 50 50 mcg PO DAILY 06/02/23 06/10/24 History mcg (2,000 unit) tablet (Vitamin D3) hydroxyzine HCl 25 mg tablet 25 mg PO TID PRN Anxiety 06/02/23 06/10/24 History mirtazapine 30 mg tablet 30 mg PO HS 06/02/23 06/10/24 History tiotropium bromide 2.5 2 puff inhalation DAILY 06/02/23 06/10/24 History mcg/actuation mist for inhalation (Spiriva Respimat) docusate sodium 100 mg capsule 100 mg PO QID PRN contipation 09/09/23 06/10/24 History levetiracetam 1,000 mg tablet 1,000 mg PO BID #60 tabs 09/11/23 06/10/24 Rx (Keppra) magnesium oxide 400 mg (241.3 mg 400 mg PO BID #60 tabs 09/11/23 06/10/24 Rx magnesium) tablet pantoprazole 40 mg tablet,delayed 40 mg PO DAILY #30 tabs 05/13/24 06/10/24 Rx release (Protonix) promethazine 6.25 mg/5 mL oral 6.25 mg (5 mL) PO TID PRN nausea 05/13/24 Rx syrup and vomiting #120 mL cetirizine 10 mg tablet 10 mg PO DAILY 05/20/24 06/10/24 History ondansetron HCl 8 mg tablet 8 mg PO Q8H PRN Nausea 05/20/24 06/10/24 History potassium chloride 10 mEq 10 meq PO BID 05/20/24 06/10/24 History tablet,extended release(part/cryst) sennosides 8.6 mg tablet (senna) 8.6 mg PO BID 05/20/24 06/10/24 History thiamine HCl (vitamin B1) 100 mg 200 mg (2 x 100 mg) PO BID #0 tabs 06/03/24 06/10/24 Rx tablet Past Med/Surg History Problem List (Updated 06/10/24 @ 12:49 by Paulie Schmidt PA-C) Comfort measures only status Acute metabolic encephalopathy Severe protein-calorie malnutrition Seizure disorder COPD (chronic obstructive pulmonary disease) Anemia Brain metastasis Adenocarcinoma of lung, stage 4 Colitis Palliative care by specialist Altered mental status Enteritis Ileus Admitted to intensive care unit Septic shock Acute dehydration (Acute) Elevated lactic acid level (Acute) Non-ST elevation ID (NSTEMI) (Acute) Leukocytosis (Acute) Severe sepsis (Acute) Acute renal failure (Acute) JUAN J (acute kidney injury) (Acute) Hypomagnesemia (Acute) Nausea, vomiting, and diarrhea (Acute) Encounter for pre-operative examination Adenocarcinoma of left lung Skin lesions Esophagitis JUAN J (acute kidney injury) Prolonged QT interval Hypocalcemia (Acute) Acute hypokalemia (Acute) Hypomagnesemia (Acute) 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 Focal motor seizure B12 deficiency Dilated bile duct Hypomagnesemia Tachycardia Iron deficiency anemia Fatigue Frontal headache Alcohol use disorder Tobacco use disorder Seizure-like activity Muscle spasm Vitamin D deficiency Osteoarthritis Vasogenic brain edema Traumatic hematoma of forehead (Acute) Focal seizure (Acute) Medical History Anemia Muscle spasm Brain metastasis Right arm weakness Brain lesion Anxiety Allergic rhinitis Depression GERD (gastroesophageal reflux disease) COPD (chronic obstructive pulmonary disease) Hyperlipidemia Hypertension Surgical History H/O craniotomy 06/05/23 - History of surgery For right arm fracture S/P hysterectomy Family History Mother , age 69 of liver cancer Liver cancer Father , in his early 70s Myocardial infarction Temporary pacemaker Brother Myocardial infarction Sister Stroke Hypertension Daughter No problems noted. 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 How many Children do You have: 1 Feels Safe at Home: Yes Diet: regular caffeine: Yes (1 cup/day) during the past year weight has: remained stable Assistive Devices: Cane, Walker and Other Review of Systems Review of Systems: See HPI above Physical Exam Physical Exam: General: Critically ill; fatigued; cachectic; frail-appearing; cooperative; 60% SpO2 on nonrebreather (15L/min) HEENT: Purple bruising on the right forehead; PERRLA; vision and hearing intact Neck: supple; no lymphadenopathy; trachea midline Skin: warm, dry without signs of tenting; no cyanosis; no rashes, bruising, lesions, or erythema noted CV: chest wall NTP; RR, tachycardic around 121 bpm; S1/S2 normal; no murmurs/rubs/gallops; pulses intact and symmetric at radial, DP, and PT Lungs: no acute respiratory distress; symmetrical chest wall expansion; clear breath sounds across all lung junior w/o adventitious sounds; no wheezing ABD: Soft, NTP; BS present; no rebound/guarding; no distention MSK: no tics or fasciculations; no edema noted in the LEs b/l, nonerythematous; patient demonstrates ability to wiggle toes when asked Neuro: Oriented to name, location, and month; not oriented to year; fluent speech; patient reports that sensation is intact and symmetric in the lower extremities bilaterally Results & Data Results & Data Vital Signs (Past 12 Hours) Vital Signs Temp Pulse Pulse Resp BP Pulse Ox O2 Del Method 06/10/24 11:32 115 H 33 H 136/92 60 L Non-rebreather 06/10/24 10:20 33.7 C L 115 H 35 H 98/48 L Non-rebreather 06/10/24 09:53 Non-rebreather 06/10/24 09:53 35.1 C L 06/10/24 09:50 35.1 C L 06/10/24 09:07 30 H 06/10/24 09:07 Non-rebreather 06/10/24 09:07 116 H 30 H 06/10/24 09:04 116 H Laboratory Results Abnormal lab results 06/10/24 06/10/24 Range/Units 09:15 10:33 WBC 12.89 H (4.8-10.8) K/ul RDW Std Deviation 53.1 H (36.4-46.3) fL Plt Count 443 H (130-400) K/uL Neut # (Auto) 9.08 H (1.40-6.50) K/uL [place] # (Auto) 1.56 H (0.11-0.59) K/uL VBG pH 7.00 L (7.36-7.41) Sodium 148 H (136-145) mmol/L Potassium 3.2 L (3.5-5.1) mmol/L Carbon Dioxide 12 L (21-32) mmol/L BUN 26 H (6-23) mg/dl Creatinine 4.23 H (0.6-1.2) mg/dl BUN/Creatinine Ratio 6.1 L (10-20) Glucose 105 H (70-99(Fasting)) mg/dl Lactate 8.9 H* (0.4-2.0) mmol/L Calcium 10.5 H (8.6-10.3) mg/dl Magnesium 1.1 L (1.7-2.4) mg/dl Alkaline Phosphatase 18 L (34-104) U/L Troponin I High Sens 23.9 H 15.3 H D (0-14) pg/ml Albumin 2.2 L (3.4-5.0) gm/dl TSH 13.230 H (0.300-4.500) uIu/ml Diagnostic Findings Chest X-Ray 06/10/24 09:14 XR chest 1V portable HISTORY: 64 years-old Female weakness COMPARISON: 06/01/2024 TECHNIQUE: AP view of the chest FINDINGS: Cardiomediastinal and hilar silhouettes are within normal limits. No pneumothorax, pleural effusion or airspace consolidation. Emphysema with chronic interstitial coarsening. Bones appear grossly intact. IMPRESSION: Emphysema without acute process. ACT 112: Negative or not required by law. The above report was generated using voice recognition software. It may contain grammatical, syntax or spelling errors. Electronically signed by: Drake Maxwell M.D. 06/10/2024 10:02 AM ECG Additional Comments: ECG revealed sinus tachycardia at 116 bpm; QTc 486 Code Status & VTE Plan Code Status DNR/DNI (confirmed with patient, patient's friend/medical POA, and Dr. Gamboa at the bedside) VTE Prophylaxis Plan VTE Prophylaxis will be ordered: Yes Supervising Physician Co-Signing Physician Notes Patient seen and examined, chart reviewed, case discussed with Paulie Schmidt PA-C and I agree with the assessment and plan as above except as otherwise noted Labs and images reviewed Angeles is seen at the bedside with her friend and medical power of personal injury attorney Ksenia Cartwright present. Extensive discussion regarding goals of care. Angeles has had a challenging course of lung adenocarcinoma with left frontal lobe brain mass resected 06/2023 consistent with lung primary adenocarcinoma. Does have a history of associated seizures. Had been undergoing adjuvant therapy with Keytruda. Per Pt gradually feeling worse and more tired over the last several weeks, and called EMS with a request to transition to hospice due to progressive symptoms and worsening dyspnea. Did discuss with her medical power of personal injury attorney Ksenia at bedside, patient has requested to transition from her current treatments to a comfort oriented goals/hospice which she is familiar with. Ksenia reports she had family member recently passed on hospice, and Angeles's daughter Yocasta reports that her [id number] also recently passed on hospice and they are familiar with these. Angeles denies recent fever chills or sweats. denies dysuria/polyuria. Endorses generalized pain in her mid and lower back gradually worsening over the last few weeks, and some diffuse pain in her abdomen. Ksenia Cartwright is patient's medical power of personal injury attorney, and did confirm this with patient's daughter Yocasta Child by phone and [phone]. Angeles was able to participate in some conversation at the bedside. She is oriented to [facility], name, and is able to give some details of her progression and express her wishes. She does express that desire to move to hospice. She reports she does not want a breathing tube and understands that she may pass, and would rather focus on comfort and is ready to pass. Confirms Ksenia as her medical decision maker, does give permission for her daughter to be called at the number above. Did discuss extensively with patient's daughter Yocasta by phone at the number above. She reports that Ksenia is her mother's medical power of personal injury attorney, but confirms that the discussion above and transition to hospice is consistent with what she understands her mother's wishes to be and how she had been doing. Patient was admitted as DRYWALL TAPER HELPER. Patient, Ksenia, Yocasta are all aware that attempted curative treatments, ICU admission, and intubation/ventilation will all be deferred consistent with comfort measure oriented care. Understand that her oxygen levels are low despite being on a nonrebreather mask, blood pressure is low, lactate/troponin/creatinine are all elevated consistent with multiorgan dysfunction and that her pH is markedly acidic at 7.0 and a bicarb of 12 consistent with severe metabolic acidosis. Expressed an understanding of this, and rather than treating these focus will be exclusively on her quality of life and comfort, and given her level of grave illness is likely that she will pass in the next few hours. Reports that she is having some discomfort in her back and abdomen for which she would like some pain medication and understands the benefit of this for quality of life, but risks to blood pressure/confusion/breathing. All parties in agreement with plan of care. Palliative care was consulted, and placing orders for transition to antidyspneic/anxiolytic agents with adjustment of oxygen when patient was ready to do so. While pending this transition patient began to have progressively worsening blood pressure. Daughter was called by phone and updated, she will try to make it to the bedside to be with her mother prior to her passing and u nderstands she is critically ill. Did offer to Angeles to call her daughter by phone in case she were to continue to have a rapid decline to have the chance to speak with her. Angeles declined to call at time of bedside visit. Agree with above PG Care Time/CCT Total # of Minutes Spent Total Time Spent with Patient: Total time spent is greater than 50% in coordination of care (as documented) at patient's floor/unit and/or counseling patient: [place] [address] INT INP/OBS CARE 3/75MIN Patient Type Established History Comprehensive Exam Comprehensive Medical Decision Making High Complexity Diagnoses Comfort measures only status Z51.5 Seizure disorder G40.909 Adenocarcinoma of lung, stage 4 C34.90 Brain metastasis C79.31 Severe protein-calorie malnutrition E43 COPD (chronic obstructive pulmonary disease) J44.9 JUAN J (acute kidney injury) N17.9 Hypomagnesemia E83.42 Tachycardia R00.0 Alcohol use disorder F10.90 Tobacco use disorder F17.200
[2024-06-10] MEDS ORDERED: LORazepam 2 MG/1 ML VIAL IV PRN ×2 (12:27→12:53)
[2024-06-10] MEDS ORDERED: GLYCOPYRROLATE 0.2 MG/ML VIAL IV PRN (12:27)
[2024-06-10] MEDS ORDERED: ONDANSETRON INJ 2 MG/ML 2 ML VIAL IV PRN (12:27)
[2024-06-10] MEDS ORDERED: MoRPHine SULFATE 2 MG/ML CARP IV PRN (12:27)
[2024-06-10 12:44] VITALS: BP 59/43; RESP 18; TEMP 95.9
[2024-06-10] MEDS ORDERED: STAT IV Infusion **Titration per Protocol STA (12:49)
[2024-06-10] MEDS ORDERED: HYDROmorphone BOLUS from BAG IV PRN (12:49)
[2024-06-10] MEDS ORDERED: HYDROmorphone INJ 0.5 MG/0.5 ML SYR IV PRN ×2 (12:52→13:23)
[2024-06-10 13:14] VITALS: PULSE 126; O2SAT 75
[2024-06-10] MEDS: HYDROmorphone 100 MG/100 ML BAG IV SCH (13:54)
[2024-06-10] MEDS ORDERED: MELATONIN 3 MG TAB PO PRN (13:59)
--- NOTE | 2024-06-10 14:17 | Communication Note ---
Date of Service: June 10, 2024 Brief palliative medicine note Asked to assist with EOL symptom mgt for Angeles who has Adenocarcinoma of lung, stage 4 and was just dc 06/03/24 for ketruda associated septic shock requiring ICU /pressor/IVF/Abtx support. Generally presented to the emergency department via EMS with progressive weakness, dyspnea and respiratory failure. SpO2's on arrival in the 60s. On transport to ED, she advised EMS that she wants to be placed on hospice and to pursue comfort care. She also verbalized this to her friend/caregiver/POA prior to coming to the ED and the friend is at the bedside verifying these request. Patient does not wish to have any escalating interventions. She wishes to have a transition to a comfort focused plan of care. Her family has been notified.. She lives alone but has support from her close friend. She has worsening mental status, pallor, lethargy and shortness of breath. Her lung cancer has progressed to brain and liver mets. She is on a 15 L/min nonrebreather with SpO2 in the 60s. VBG demonstrated a pH of 7 on arrival. To secure urgent relief of her end-of-life dyspnea, Dilaudid infusion was started at 0.3 mg/h with 0.5 mg bolus every 10 minutes as needed. Additional orders for IV push were placed while we await the start of the infusion. Additionally, Ativan 1 mg IV every 4 hours as needed for agitation/ anxiety/spasms or myoclonus was also ordered. Patient is being admitted for comfort care. Her likely survival is hours to a day or 2. She is actively transitioning to an end-of-life process. Her daughter was updated by the primary team. It is unclear if she will arrive in time before patient dies. Patient's close friend and POA remains at the bedside. Thank you for allowing us to participate in the ongoing care of this patient. Please page with any additional concerns. rFida Sepulveda DNP Director, Palliative Medicine No charge submitted.
--- NOTE | 2024-06-10 15:37 | Electrocardiogram Report ---
Test Reason : Blood Pressure : */* mmHG Vent. Rate : 116 BPM Atrial Rate : 116 BPM P-R Int : 140 ms QRS Dur : 84 ms QT Int : 350 ms P-R-T Axes : 83 89 -7 degrees QTcB Int : 486 ms Sinus tachycardia Minimal voltage criteria for LVH, may be normal variant Abnormal ECG When compared with ECG of 29-May-2024 06:31, Vent. rate has increased by 50 bpm QRS voltage has increased ST now depressed in Inferior leads T wave inversion now evident in Inferior leads Confirmed by Aramis Monson ([id number]) on 06/10/2024 3:37:25 PM Referred By: REFERRED SELF Confirmed By: Aramis Monson
--- OUTSIDE RECORDS SUMMARY | 2024-06-10 16:00 | External Medical Summary | Summary of Care ---
Author Name Unknown Organization [facility] Address [address] [place] [address] Phone [phone] Care Team Providers Care Suction Plate Roller Hand Name Role Phone Amarilys Hamilton Primary Care Provider [phone] Reason for Visit * Reason Onset Date Comments Referral Requested by Specialist 03/10/2024 Encounter Details Date Type Department Care Team ([facility] st Contact Info) Description 03/10/2024 Telephone [facility] [address] [place] [address] Amarilys Hamilton CRNP [address] [place] [address] Referral Requested by Specialist Allergies No known active allergiesdocumented as of this encounter (statuses as of 06/09/2024) Medications Medication Sig Dispensed Refills Start Date [...] at bedtime. 05/22/2023 Active Cholecalciferol 50 MCG (1999 [place]) Oral Tablet Take 50 mcg by [...] by mouth at bedtime. 01/15/2023 Active Tiotropium [place] Monohydrate 2.5 MCG/ACT Inhalation Aerosol Solution (Spiriva [...] TWICE DAILY 60 Tablet 2 02/27/2024 Active documented as of this encounter (statuses as of 06/09/2024) Active Problems Problem Noted Date Diagnosed Date [...] as of this encounter (statuses as of 06/09/2024) Immunizations Name Administration Dates Next Due TD [...] encounter Miscellaneous Notes * Telephone Encounter - [place], Neuro Referral - 03/10/2024 4:56 AM EDT Patient with upcoming Neurology appointment. Referral order request sent to PCP via Communication Management. documented in this encounter Plan of Treatment Upcoming Encounters Date Type Department Care Team (Late st Contact Info) Description 06/10/2024 9:30 AM EST Laboratory Laboratory [address] [place] [id number] Mariana, Lab [address] [place] [address] 06/10/2024 10:30 AM EST Hem/Onc Treatment Hematology/Oncology Treatment, [address] [place] [id number] Mariana, Chair 9 Hem Onc [address] [place] [address] 06/10/2024 11:30 AM EST Office Visit Palliative Medicine [address] [place] [id number] Charlotte Price MD [address] [place] [id number] Health Maintenance Due Date Last Done Comments DISCUSS TOBACCO CESSATION (REFER TO SMARTSET #[id number]) 1960 COVID-19 Vaccine (#1) 01/23/1965 Pneumococcal Vaccine: [...] 05/12/2019 05/12/2018 Mammogram 03/17/2022 03/17/2021, 05/06, 11/29/2016 Cologuard 11/20/2024 11/20/2021, 03/05, 06/24/2020 Colorectal Cancer Screening 11/20/2024 GFR 04/30/2025 04/30/2024, 0911/2023, 03/18/2024, Additional history exists O2 ASSESSMENT COMPLETED IN PAST YEAR FOR COPD 04/30/2025 04/30/2024 Pap Smear Discontinued 11/04/2007 (Done elsewhere) Influenza [...] this encounter Medical Devices Implanted Type Area Card Cutter Helper Device Identifier Shelf Expiration Date Model / Serial / Lot Shanique Gill Neuro Box Plate, 2x2 Hole Implanted:Qty : 2 on 06/05/2023 by Peter Omalley [place] [facility] [place] Head [id number] / / Warne Gill Neuro Straight Plate 8-Hole W/O Bar Implanted:Qty : 1 on 06/05/2023 by Peter Omalley MD at [place] [facility] [place]: Head [id number] / / Warne Gill Neuro Rectangle Plate Implanted:Qty : 1 on 06/05/2023 by Peter Omalley MD at [place] [facility] [place]: Head [id number] / / Shanique Gill Neuro [place] Hole Cover Plate 10 Mm, W/ Tab Implanted:Qty : 1 on 06/05/2023 by Peter Omalley MD at [place] [facility] [place]: Head [id number] / / Screw 1.5x4mm Sd Un3 - [id number] Implanted:Qty : 20 on 06/05/2023 by Peter Omalley MD at [place] [facility] [place]: Head SHANIQUE : CRANIOMAXILLOFACIAL [id number] / / documented as of this encounter Advance Directives Documents on File Type Date Recorded Patient Harness Racing Handicapper Daniela ZACARIAS 12/12/2023 signed on 12/10 [place] ORDERS FOR LIFE-SUSTAINING TREATMENT * Full Code [...] Advance Directives occurred with: Patient Care Teams Suction Plate Roller Hand Relationship Specialty Start Date End Date Amarilys Hamilton CRNP [address] [place] [address] PCP - General Nurse Practitioner 12/11/23 documented as of this encounter
--- OUTSIDE RECORDS SUMMARY | 2024-06-10 16:01 | External Medical Summary | Summary of Care ---
Author Name Unknown Organization [facility] Address [address] [place] [address] Phone [phone] Care Team Providers Care Boiler Technician Name Role Phone [place], Amarilys LUCHO Primary Care Provider [phone] Reason for Visit * Reason Onset Date Comments No Show 05/27/2024 Encounter Details Date Type Department Care Team (Late st Contact Info) Description 05/27/2024 Telephone Hematology/Oncology [facility] [address] [place] [address] Bradley Amaya MD [address] [facility] [address] No Show Allergies No known active allergiesdocumented as of this encounter (statuses as of 05/29/2024) Medications Medication Sig Dispensed Refills Start Date [...] by mouth at bedtime. 01/15/2023 Active Tiotropium [place] Monohydrate 2.5 MCG/ACT Inhalation Aerosol Solution (Spiriva [...] as of this encounter (statuses as of 05/29/2024) Active Problems Problem Noted Date Diagnosed Date [...] as of this encounter (statuses as of 05/29/2024) Immunizations Name Administration Dates Next Due Seasonal [...] encounter Miscellaneous Notes * Telephone Encounter - Diego Cain OSA - 05/29/2024 8:29 AM EDT Left message x2 * Telephone Encounter - Cassia Muller OSA - 05/28/2024 8:13 AM EDT Left message * Telephone Encounter - Lorri Ramirez CMA - 05/27/2024 3:02 PM EDT Please contact patient in regards to NO Show Appointment today with . Thank you. documented in this encounter Plan of Treatment Upcoming Encounters Date Type Department Care Team (Late st Contact Info) Description 06/10/2024 9:30 AM EST Laboratory Laboratory [facility] [place] [address] [place] [phone] Mariana, Lab [facility] [address] [place] [address] 06/10/2024 10:30 AM EST Hem/Onc Treatment Hematology/Oncology Treatment, [place] [address] [place] [phone] Mariana, Chair 9 Hem Onc [address] [place] [address] 06/10/2024 11:30 AM EST Office Visit Palliative Medicine [facility] [place] [address] [place] [address] Charlotte Price MD [address] [place] [address] Health Maintenance Due Date Last Done Comments DISCUSS TOBACCO CESSATION (REFER TO SMARTSET #6414) 1960 COVID-19 Vaccine (#1) 01/23/1965 Pneumococcal Vaccine: [...] this encounter Medical Devices Implanted Type Area Mortgage Analyst Device Identifier Shelf Expiration Date Model / Serial / Lot Anuradha [place] Neuro Box Plate, 2x2 Hole Implanted:Qty : 2 on 06/05/2023 by Peter Omalley MD at [place] [facility] [place] Left: Head [id number] / / Anuradha [place] Neuro Straight Plate 8-Hole W/O Bar Implanted:Qty : 1 on 06/05/2023 by Peter Omalley MD at OR [facility] [place] Left: Head [id number] / / Anuradha [place] Neuro Rectangle Plate Implanted:Qty : 1 on 06/05/2023 by Peter Omalley MD at [place] [facility] [place] Left: Head [id number] / / Anuradha [place] Neuro Geo Hole Cover Plate 10 Mm, W/ Tab Implanted:Qty : 1 on 06/05/2023 by Peter Omalley MD at OR [facility] [place] Left: Head [id number] / / Screw 1.5x4mm Sd Un3 - [id number] Implanted:Qty : 20 on 06/05/2023 by Peter Omalley MD at OR [facility] [place] Left: Head ANURADHA : CRANIOMAXILLOFACIAL [id number] / / documented as of this encounter Advance Directives Documents on File Type Date Recorded Patient Agricultural Engineering Technologist Expl linden ZACARIAS 12/12/2023 signed on 12/10 [place] ORDERS FOR LIFE-SUSTAINING TREATMENT * Full Code [...] Advance Directives occurred with: Patient Care Teams Boiler Technician Relationship Specialty Start Date End Date Amarilys Hamilton CRNP [address] [place] [address] PCP - General Nurse Practitioner 12/11/23 documented as of this encounter
--- OUTSIDE RECORDS SUMMARY | 2024-06-10 16:01 | External Medical Summary | Summary of Care ---
Author Name Unknown Organization [facility] Address [address] [place] [address] Phone [phone] Care Team Providers Care Physiology Teacher Name Role Phone Amarilys Hamilton Primary Care Provider [phone] Reason for Visit * Reason Onset Date Comments Referral Requested by Specialist 03/02/2024 Encounter Details Date Type Department Care Team ([facility] st Contact Info) Description 03/02/2024 Telephone [facility] [address] [place] [address] Amarilys Hamilton CRNP [address] [place] [address] Referral Requested by Specialist Allergies No known active allergiesdocumented as of this encounter (statuses as of 06/01/2024) Medications Medication Sig Dispensed Refills Start Date [...] by mouth at bedtime. 01/15/2023 Active Tiotropium [place] Monohydrate 2.5 MCG/ACT Inhalation Aerosol Solution (Spiriva [...] as of this encounter (statuses as of 06/01/2024) Active Problems Problem Noted Date Diagnosed Date [...] as of this encounter (statuses as of 06/01/2024) Immunizations Name Administration Dates Next Due TD [...] Telephone Encounter - Ia, Neuro Referral - 03/02/2024 5:32 AM EDT Patient with upcoming Neurology appointment. Referral order request sent to PCP via Communication Management. documented in this encounter Plan of Treatment Upcoming Encounters Date Type Department Care Team (Late st Contact Info) Description 06/10/2024 9:30 AM EST Laboratory Laboratory [address] [place] [phone] [place], Lab [address] [place] [address] 06/10/2024 10:30 AM EST Hem/Onc Treatment Hematology/Oncology Treatment, [address] [place] [phone] Mariana, Chair [address] Hem On[address] [place] [address] 06/10/2024 11:30 AM EST Office Visit Palliative Medicine [address] [place] [phone] Charlotte Price MD [address] [place] [address] Health Maintenance Due Date Last Done Comments DISCUSS TOBACCO CESSATION (REFER TO SMARTSET #0811) 1960 COVID-19 Vaccine (#1) 01/23/1965 Pneumococcal Vaccine: [...] this encounter Medical Devices Implanted Type Area Gas Welder Apprentice Device Identifier Shelf Expiration Date Model / Serial / Lot Shanique [place] Neuro Box Plate, 2x2 Hole Implanted:Qty : 2 on 06/05/2023 by Peter Omalley MD at OR [facility] Left: Head [id number] / / [place] Henry Neuro Straight Plate 8-Hole W/O Bar Implanted:Qty : 1 on 06/05/2023 by Peter Omalley MD at OR [facility] Left: Head [id number] / / [place] Henry Neuro Rectangle Plate Implanted:Qty : 1 on 06/05/2023 by Peter Omalley MD at OR [facility] Left: Head [id number] / / Shanique Henry Neuro [place] Hole Cover Plate 10 Mm, W/ Tab Implanted:Qty : 1 on 06/05/2023 by Peter Omalley MD at OR [facility] Left: Head [id number] / / Screw 1.5x4mm Sd Un3 - [id number] Implanted:Qty : 20 on 06/05/2023 by Peter Omalley MD at OR [facility] Left: Head SHANIQUE : CRANIOMAXILLOFACIAL [id number] / / documented as of this encounter Advance Directives Documents on File Type Date Recorded Patient Gas Main And Line Fitter Daniela ZACARIAS 12/12/2023 signed on 12/10 [place] [...] Advance Directives occurred with: Patient Care Teams Physiology Teacher Relationship Specialty Start Date End Date Amarilys Hamilton CRNP [address] [place] [address] PCP - General Nurse Practitioner 12/11/23 documented as of this encounter
--- OUTSIDE RECORDS SUMMARY | 2024-06-10 16:01 | External Medical Summary | Summary of Care ---
Author Name Unknown Organization [facility] Address [address] [place] [address] Phone [phone] Care Team Providers Care Edge Baster Name Role Phone [place], Amarilys LUCHO Primary Care Provider [phone] Reason for Visit * Reason Onset Date Comments No Show 05/27/2024 Encounter Details Date Type Department Care Team (Late st Contact Info) Description 05/27/2024 Telephone Hematology/Oncology [facility] [address] [facility] [place] [address] Bradley Amaya MD [address] [facility] [address] No Show Allergies No known active allergiesdocumented as of this encounter (statuses as of 05/28/2024) Medications Medication Sig Dispensed Refills Start Date [...] by mouth at bedtime. 01/15/2023 Active Tiotropium [place] Monohydrate 2.5 MCG/ACT Inhalation Aerosol Solution (Spiriva [...] as of this encounter (statuses as of 05/28/2024) Active Problems Problem Noted Date Diagnosed Date [...] as of this encounter (statuses as of 05/28/2024) Immunizations Name Administration Dates Next Due Seasonal [...] Description 06/10/2024 9:30 AM EST Laboratory Laboratory [facility] [place] [address] [place] [phone] [place], Lab [address] [place] [address] 06/10/2024 10:30 AM EST Hem/Onc Treatment Hematology/Oncology Treatment, [place] 200 [facility], [place] [phone] Mariana, Chair [address] Hem Onc [address] [address] 06/10/2024 11:30 AM EST Office Visit Palliative Medicine [facility] [place] [address] [facility] [address] Charlotte Price MD [address] [place] [address] [place] [address] Health Maintenance Due Date Last Done Comments DISCUSS TOBACCO CESSATION (REFER TO SMARTSET #9838) 1960 COVID-19 Vaccine (#1) 01/23/1965 Pneumococcal Vaccine: [...] this encounter Medical Devices Implanted Type Area Manager Program Management Device Identifier Shelf Expiration Date Model / Serial / Lot [place] Neuro Box Plate, 2x2 Hole Implanted:Qty : 2 on 06/05/2023 by Peter Omalley MD at [place] [facility] [place] Left: Head [id number] / / Shanique [place] Neuro Straight Plate 8-Hole W/O Bar Implanted:Qty : 1 on 06/05/2023 by Peter Omalley MD at OR [facility] Left: Head [id number] / / [place] Neuro Rectangle Plate Implanted:Qty : 1 on 06/05/2023 by Peter Omalley MD at OR [facility] Left: Head [id number] / / Shanique [place] Neuro [place] Hole Cover Plate 10 Mm, W/ Tab Implanted:Qty : 1 on 06/05/2023 by Peter Omalley MD at OR [facility] Left: Head [id number] / / Screw 1.5x4mm Sd Un3 - [id number] Implanted:Qty : 20 on 06/05/2023 by Peter Omalley MD at OR [facility] Left: Head SHANIQUE : CRANIOMAXILLOFACIAL [id number] / / documented as of this encounter Advance Directives Documents on File Type Date Recorded Patient Pipe Or Steam Fitter Furnace Installer Daniela cheatham RELL 12/12/2023 signed on 12/10 [place] ORDERS FOR LIFE-SUSTAINING TREATMENT * Full Code [...] Advance Directives occurred with: Patient Care Teams Edge Baster Relationship Specialty Start Date End Date Amarilys Hamilton CRNP [address] [place] [address] PCP - General Nurse Practitioner 12/11/23 documented as of this encounter
--- OUTSIDE RECORDS SUMMARY | 2024-06-10 16:01 | External Medical Summary | Summary of Care ---
Author Name Unknown Organization [facility] Address [address] [place] [address] Phone [phone] Care Team Providers Care Sewer System Supervisor Name Role Phone [place], Amarilys LUCHO Primary Care Provider [phone] Reason for Visit * Reason Onset Date Comments No Show 05/27/2024 Encounter Details Date Type Department Care Team (Late st Contact Info) Description 05/27/2024 Telephone Hematology/Oncology [facility] [address] [facility] [place] [address] Bradley Amaya MD [address] [facility] [address] No Show Allergies No known active allergiesdocumented [...] by mouth at bedtime. 01/15/2023 Active Tiotropium [place] Monohydrate 2.5 MCG/ACT Inhalation Aerosol Solution (Spiriva [...] 06/01/2024) Immunizations Name Administration Dates Next Due Seasonal [...] encounter Miscellaneous Notes * Telephone Encounter - Digeo Cain OSA - 06/01/2024 3:45 PM EDT Letter Sent * Telephone Encounter - Diego Cain OSA - 06/01/2024 8:28 AM EDT Left message x3 and MyG sent * Telephone Encounter - Diego Cain OSA [...] Description 06/10/2024 9:30 AM EST Laboratory Laboratory [address] [place] [phone] [facility], Lab [address] [place] [address] 06/10/2024 10:30 AM EST Hem/Onc Treatment Hematology/[address]cology [address], [address] [phone] Mariana, Chair 9 Hem Onc [address] [place] [address] 06/10/2024 11:30 AM EST Office Visit Palliative Medicine [address] [place] [address] Charlotte Price MD [address] [place] [phone] Health Maintenance Due Date Last Done Comments DISCUSS TOBACCO CESSATION (REFER TO SMARTSET #9773) 1960 COVID-19 Vaccine (#1) 01/23/1965 Pneumococcal Vaccine: [...] Colorectal Cancer Screening 11/20/2024 GFR 04/30/2025 04/30/2024, 090 11/2023, 03/18/2024, Additional history exists Pap Smear [...] this encounter Medical Devices Implanted Type Area Finish Repair Worker Device Identifier Shelf Expiration Date Model / Serial / Lot Anuradha [place] Neuro Box Plate, 2x2 Hole Implanted:Qty : 2 on 06/05/2023 by Peter Omalley MD [place] [facility] [place]: Head [id number] / / Anuradha [place] Neuro Straight Plate 8-Hole W/O Bar Implanted:Qty : 1 on 06/05/2023 by Peter Omalley MD at [place] [facility] [place] Left: Head [id number] / / Anuradha [place] Neuro Rectangle Plate Implanted:Qty : 1 on 06/05/2023 by Peter Omalley MD at [place] [facility] [place] Left: Head [id number] / / [place] Neuro Geo Hole Cover Plate 10 Mm, W/ Tab Implanted:Qty : 1 on 06/05/2023 by Peter Omalley MD [place] [facility] [place] Left: Head [id number] / / Screw 1.5x4mm Sd Un3 - [id number] Implanted:Qty : 20 on 06/05/2023 by Peter Omalley MD [place] [facility] [place]: Head ANURADHA : CRANIOMAXILLOFACIAL [id number] / / documented as of this encounter Advance Directives Documents on File Type Date Recorded Patient Dean Of Students Daniela ZACARIAS 12/12/2023 signed on 12/10 [place] ORDERS FOR LIFE-SUSTAINING TREATMENT * Full Code [...] Advance Directives occurred with: Patient Care Teams Sewer System Supervisor Relationship Specialty Start Date End Date Amarilys [place] CRNP [address] [place] [address] PCP - General Nurse Practitioner 12/11/23 documented as of this encounter
--- OUTSIDE RECORDS SUMMARY | 2024-06-10 16:01 | External Medical Summary | Summary of Care ---
Author Name Unknown Organization [facility] Address [address] [place] [address] Phone [phone] Care Team Providers Care [employer] Retailer Sales Consultant Name Role Phone [place], Amarilys LUCHO Primary Care Provider [phone] Reason for Visit * Reason Onset Date Comments No Show 05/27/2024 Encounter Details Date Type Department Care Team (Late st Contact Info) Description 05/27/2024 Telephone Hematology/Oncology [facility] 200 [facility] [place] [address] Bradley Amaya MD [address] [facility] [address] No Show Allergies No known active allergiesdocumented [...] by mouth at bedtime. 01/15/2023 Active Tiotropium [place] Monohydrate 2.5 MCG/ACT Inhalation Aerosol Solution (Spiriva [...] Description 06/10/2024 9:30 AM EST Laboratory Laboratory [facility] [address] [place] [phone] Mariana, Lab [facility] 200 [facility] [place] [address] 06/10/2024 10:30 AM EST Hem/Onc Treatment Hematology/Oncology Treatment, [place] [address] [facility] [phone] Mariana, Chair 9 Hem Onc [facility] [address] [facility] [place] [address] 06/10/2024 11:30 AM EST Office Visit Palliative Medicine [facility] 200 [place] [phone] Charlotte Price MD [address] [place] [phone] Health Maintenance Due Date Last Done Comments DISCUSS TOBACCO CESSATION (REFER TO SMARTSET #0019) 1960 COVID-19 Vaccine (#1) 01/23/1965 Pneumococcal Vaccine: [...] this encounter Medical Devices Implanted Type Area Training And Development Coordinator Device Identifier Shelf Expiration Date Model / Serial / Lot Anuradha [place] Neuro Box Plate, 2x2 Hole Implanted:Qty : 2 on 06/05/2023 by Peter Omalley MD at OR [facility] [place] Left: Head [id number] / / Anuradha [place] Neuro Straight Plate 8-Hole W/O Bar Implanted:Qty : 1 on 06/05/2023 by Peter Omalley MD at OR [facility] [place] Left: Head [id number] / / [place] Neuro Rectangle Plate Implanted:Qty : 1 on 06/05/2023 by Peter Omalley MD at OR [facility] [place] Left: Head [id number] / / [place] Neuro Geo Hole Cover Plate 10 Mm, W/ Tab Implanted:Qty : 1 on 06/05/2023 by Peter Omalley MD at OR [facility] [place] Left: Head [id number] / / Screw 1.5x4mm Sd Un3 - [id number] Implanted:Qty : 20 on 06/05/2023 by Peter Omalley MD at OR [facility] Left: Head ANURADHA : CRANIOMAXILLOFACIAL [id number] / / documented as of this encounter Advance Directives Documents on File Type Date Recorded 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
--- OUTSIDE RECORDS SUMMARY | 2024-06-10 16:01 | External Medical Summary | Summary of Care ---
Author Name Unknown Organization [facility] Address [address] [place] [address] Phone [phone] Care Team Providers Care Steward/Stewardess Third Name Role Phone [place], Amarilys LUCHO Primary Care Provider [phone] Reason for Visit * Reason Onset Date Comments No Show 05/27/2024 Encounter Details Date Type Department Care Team (Late st Contact Info) Description 05/27/2024 Telephone Hematology/Oncology [facility] [address] [place] [address] Bradley Amaya MD [address] [facility] [address] No Show Allergies No known active allergiesdocumented as of this encounter (statuses as of 05/27/2024) Medications Medication Sig Dispensed Refills Start Date [...] by mouth at bedtime. 01/15/2023 Active Tiotropium [place] Monohydrate 2.5 MCG/ACT Inhalation Aerosol Solution (Spiriva [...] as of this encounter (statuses as of 05/27/2024) Active Problems Problem Noted Date Diagnosed Date [...] as of this encounter (statuses as of 05/27/2024) Immunizations Name Administration Dates Next Due Seasonal [...] encounter Miscellaneous Notes * Telephone Encounter - Lorri Ramirez CMA - 05/27/2024 3:02 PM EDT Please contact patient in regards to NO Show Appointment today with . Thank you. documented in this encounter Plan of Treatment Upcoming Encounters Date Type Department Care Team (Late st Contact Info) Description 06/10/2024 9:30 AM EST Laboratory Laboratory [facility] [place] [address] [place] [phone] [place], Lab [address] [place] [address] 06/10/2024 10:30 AM EST Hem/Onc Treatment Hematology/Oncology Treatment, [place] [address] [place] [phone] Mariana, Chair 9 Hem Onc [address] [place] [address] 06/10/2024 11:30 AM EST Office Visit Palliative Medicine [facility] [address] [place] [address] Charlotte Price MD [address] [place] [address] [place] [address] Health Maintenance Due Date Last Done Comments DISCUSS TOBACCO CESSATION (REFER TO SMARTSET #9474) 1960 COVID-19 Vaccine (#1) 01/23/1965 Pneumococcal Vaccine: [...] Colorectal Cancer Screening 11/20/2024 GFR 04/30/2025 04/30/2024, 09/0 11/2023, 03/18/2024, Additional history exists Pap Smear [...] this encounter Medical Devices Implanted Type Area Internet Sales Representative Device Identifier Shelf Expiration Date Model / Serial / Lot [place] Neuro Box Plate, 2x2 Hole Implanted:Qty : 2 on 06/05/2023 by Peter Omalley MD at OR [facility] [place] Left: Head [id number] / / [place] Neuro Straight Plate 8-Hole W/O Bar Implanted:Qty : 1 on 06/05/2023 by Peter Omalley MD at OR [facility] [place] Left: Head [id number] / / Shanique [place] Neuro Rectangle Plate Implanted:Qty : 1 on 06/05/2023 by Peter Omalley MD at OR [facility] [place] Left: Head [id number] / / Shanique [place]cker Neuro [place] Hole Cover Plate 10 Mm, W/ Tab Implanted:Qty : 1 on 06/05/2023 by Peter Omalley MD at OR [facility] [place] Left: Head [id number] / / Screw 1.5x4mm Sd Un3 - [id number] Implanted:Qty : 20 on 06/05/2023 by Peter Omalley MD at OR [facility] [place] Left: Head SHANIQUE : CRANIOMAXILLOFACIAL [id number] / / documented as of this encounter Advance Directives Documents on File Type Date Recorded Patient Street Commissioner Daniela ZACARIAS 12/12/2023 signed on 12/10 [place] ORDERS FOR [...] Advance Directives occurred with: Patient Care Teams Steward/Stewardess Third Relationship Specialty Start Date End Date Amarilys [place] CRNP [address] [place] [address] PCP - General Nurse Practitioner 12/11/23 documented as of this encounter
[2024-06-10] MEDS: levETIRAcetam 500 MG/5 ML VIAL IV SCH (20:37)
[2024-06-10] MEDS ORDERED: levETIRAcetam 500 MG TAB PO SCH (21:00)
--- OUTSIDE RECORDS SUMMARY | 2024-06-11 02:39 | External Medical Summary | Summary of Care ---
Author Name Unknown Organization [facility] Address [address] [place] [address] Phone [phone] Care Team Providers Care Information Services Manager Name Role Phone Joy Amarilys LUCHO Primary Care Provider [phone] Reason for Visit * Reason Onset Date Comments Med Request 06/10/2024 Refill Request f or Senna 8.6 Mg Tablet - [facility] Encounter Details Date Type Department Care Team ([facility] st Contact Info) Description 06/10/2024 Telephone Palliative Medicine, [facility] [address] [facility] 5th Floor [place], [place] [id number] Anitra Jules PA-C [address] [place] [address] Med Request (Refill Request for Senna 8.6 ... Allergies No known active allergiesdocumented as of this encounter (statuses as of 06/10/2024) Medications Medication Sig Dispensed Refills Start Date [...] by mouth at bedtime. 01/15/2023 Active Tiotropium [place] Monohydrate 2.5 MCG/ACT Inhalation Aerosol Solution (Spiriva [...] as of this encounter (statuses as of 06/10/2024) Active Problems Problem Noted Date Diagnosed Date [...] as of this encounter (statuses as of 06/10/2024) Immunizations Name Administration Dates Next Due Seasonal [...] encounter Miscellaneous Notes * Telephone Encounter - Nicolette Garber OSA - 06/10/2024 9:34 AM EST Refill request received via fax: For: Senna 8.6 Mg Tablet From: [facility] Quantity: 60 Last Date Filled: 05/19/24 documented in this encounter Plan of Treatment Health Maintenance Due Date Last Done Comments DISCUSS TOBACCO CESSATION (REFER TO SMARTSET #0010) 1960 COVID-19 Vaccine (#1) 01/23/1965 Pneumococcal Vaccine: [...] 04/30/2025 04/30/2024, 11/2023, 03/18/2024, Additional history exists O2 ASSESSMENT COMPLETED [...] this encounter Medical Devices Implanted Type Area Regional Economic Liaison Device Identifier Shelf Expiration Date Model / Serial / Lot Shanique [place] Neuro Box Plate, 2x2 Hole Implanted:Qty : 2 on 06/05/2023 by Peter Omalley MD [place] [facility] [place] [id number] / / Shanique [place] Neuro Straight Plate 8-Hole W/O Bar Implanted:Qty : 1 on 06/05/2023 by Peter Omalley MD [place] [facility] [place]: Head [id number] / / Shanique [place] Neuro Rectangle Plate Implanted:Qty : 1 on 06/05/2023 by Peter Omalley MD [place] [facility] [place]: Head [id number] / / [place] Claremont Neuro [place] Hole Cover Plate 10 Mm, W/ Tab Implanted:Qty : 1 on 06/05/2023 by Peter Omalley MD at [place] [facility] [place]: Head [id number] / / Screw 1.5x4mm Sd Un3 - [id number] Implanted:Qty : 20 on 06/05/2023 by Peter Omalley MD at [facility] Left: Head SHANIQUE : CRANIOMAXILLOFACIAL [id number] / / documented as of this encounter Advance Directives Documents on File Type Date Recorded Patient Bit Sharpener Operator Daniela cheatham POL 12/12/2023 signed on 12/10 [place] ORDERS FOR LIFE-SUSTAINING TREATMENT * Full Code [...] Advance Directives occurred with: Patient Care Teams Information Services Manager Relationship Specialty Start Date End Date Amarilys Hamilton CRNP [address] [place] [address] PCP - General Nurse Practitioner 12/11/23 documented as of this encounter
--- OUTSIDE RECORDS SUMMARY | 2024-06-11 02:39 | External Medical Summary | Summary of Care ---
Author Name Unknown Organization [facility] Address [address] [place] [address] Phone [phone] Care Team Providers Care Riveting Machine Operator Name Role Phone [place], Amarilys LUCHO Primary Care Provider [phone] Reason for Visit * Reason Onset Date Comments Advice 06/10/2024 Encounter Details Date Type Department Care Team (Late st Contact Info) Description 06/10/2024 Telephone Hematology/Oncology Treatment, [place] [address] [place] [address] Bradley Amaya MD [address] [place] [address] Advice Allergies No known active allergiesdocumented as [...] by mouth at bedtime. 01/15/2023 Active Tiotropium [place] Monohydrate 2.5 MCG/ACT Inhalation Aerosol Solution (Spiriva [...] Telephone Encounter - Cassia Muller OSA - 06/10/2024 8:47 AM EST Canceled tx until we have more info on how long she is going to be at [facility] * Telephone Encounter - Paulie Quesada RN - 06/10/2024 8:15 AM EST Spoke with patients friend Vivian this morning. Pt friend advises she is unable to get patient out of bed this morning, she is disoriented, unable to walk, and hasn't been eating or drinking. Called 911 to bring patient to [facility] hospital, report given. Sent TT to [facility] ER director of planning with report and update. Scheduling- Please cancel patients lab/treatment/Palliative appointment for today, this will need rescheduled. Palliative- FYI- pt going to the ER. Dr. Amaya- JANINE documented in this encounter Plan of Treatment Health Maintenance Due Date Last Done Comments DISCUSS TOBACCO CESSATION (REFER TO SMARTSET #1919) 1960 COVID-19 Vaccine (#1) 01/23/1965 Pneumococcal Vaccine: [...] 04/30/2024, 090 11/2023, 03/18/2024, Additional history exists O2 ASSESSMENT [...] this encounter Medical Devices Implanted Type Area Clinical Services Director Device Identifier Shelf Expiration Date Model / Serial / Lot [place] Himrod Neuro Box Plate, 2x2 Hole Implanted:Qty : 2 on 06/05/2023 by Peter Omalley MD at [place] [facility] [place] Left: Head [id number] / / [place] Himrod Neuro Straight Plate 8-Hole W/O Bar Implanted:Qty : 1 on 06/05/2023 by Peter Omalley MD at [place] [facility] [place] Left: Head [id number] / / Shanique [place] Neuro Rectangle Plate Implanted:Qty : 1 on 06/05/2023 by Peter Omalley MD at [place] [facility] [place] Left: Head [id number] / / [place] Himrod Neuro Geo Hole Cover Plate 10 Mm, W/ Tab Implanted:Qty : 1 on 06/05/2023 by Peter Omalley MD at [place] [facility] [place] Left: Head [id number] / / Screw 1.5x4mm Sd Un3 - [id number] Implanted:Qty : 20 on 06/05/2023 by Peter Omalley MD at [place] [facility] [place] Left: Head SHANIQUE : CRANIOMAXILLOFACIAL [id number] / / documented as of this encounter Advance Directives Documents on File Type Date Recorded Patient Info Print Press Operator Expl [email or web address] POL 12/12/2023 signed on 12/10 [place] ORDERS FOR LIFE-SUSTAINING TREATMENT * Full Code [...] Advance Directives occurred with: Patient Care Teams Riveting Machine Operator Relationship Specialty Start Date End Date Amarilys Hamilton CRNP [address] [place] [address] PCP - General Nurse Practitioner 12/11/23 documented as of this encounter
--- OUTSIDE RECORDS SUMMARY | 2024-06-11 02:39 | External Medical Summary | Summary of Care ---
Author Name Unknown Organization [facility] Address [address] [place] [address] Phone [phone] Care Team Providers Care Gang Rider Name Role Phone Joy Amarilys LUCHO Primary Care Provider [phone] Reason for Visit * Reason Onset Date Comments Med Request 06/10/2024 Refill Request f or Senna 8.6 Mg Tablet - [facility] Encounter Details Date Type Department Care Team ([facility] st Contact Info) Description 06/10/2024 Telephone Palliative Medicine, [facility] [address] [facility] 5th [address] [place], [place] [phone] Anitra Jules PA-C [address] [place] [address] Med Request (Refill Request for [...] by mouth at bedtime. 01/15/2023 Active Tiotropium [place] Monohydrate 2.5 MCG/ACT Inhalation Aerosol Solution (Spiriva [...] for Pain, Severe. 60 Tablet 03/18/2024 Active Baclofen 10 MG Oral Tablet (Lioresal) [...] for Nausea. 30 Tablet 3 05/12/2024 Active Sennosides 8.6 MG Oral Tablet (Senokot)Indicatio ns:Drug-induced constipation Take 2 Tablets by mouth at bedtime. 60 Tablet 3 06/10/2024 Active Sennosides 8.6 MG Oral Tablet (Senokot)Indicatio ns:Drug-induced constipation Take 2 Tablets by mouth at bedtime. 60 Tablet 2 03/24/2024 Discontinue d(Refill) documented as of this encounter [...] encounter Miscellaneous Notes * Addendum Note - Palmira Shah CRNP - 06/10/2024 10:39 AM ESTAddended by: PALMIRA SHAH on: 06/10/2024 10:39 AM Modules accepted: Orders * Telephone Encounter - Nicolette Garber OSA - 06/10/2024 9:34 AM EST Refill request received via fax: For: Senna 8.6 Mg Tablet From: [facility] Quantity: 60 Last Date Filled: 10/15/24 documented in this encounter Plan of Treatment Health Maintenance Due Date Last Done Comments DISCUSS TOBACCO CESSATION (REFER TO SMARTSET #8533) 1960 COVID-19 Vaccine (#1) 01/23/1965 Pneumococcal Vaccine: [...] this encounter Medical Devices Implanted Type Area Tack Maker Device Identifier Shelf Expiration Date Model / Serial / Lot [place] Neuro Box Plate, 2x2 Hole Implanted:Qty : 2 on 06/05/2023 by Peter Omalley MD at [facility] Left: Head [id number] / / Shanique [place] Neuro Straight Plate 8-Hole W/O Bar Implanted:Qty : 1 on 06/05/2023 [place]mal[place] [facility] [place] [id number] / / Shanique [place] Neuro Rectangle Plate Implanted:Qty : 1 on 06/05/2023 by Peter Omalley MD [place] [facility] [place]: Head [id number] / / [place] Neuro [place] Hole Cover Plate 10 Mm, W/ Tab Implanted:Qty : 1 on 06/05/2023 by Peter Omalley MD [place] [facility] [place] Head [id number] / / Screw 1.5x4mm Sd Un3 - [id number] Implanted:Qty : 20 on 06/05/2023 by Peter Omalley MD [place] [facility] [place] Head SHANIQUE : CRANIOMAXILLOFACIAL [id number] / / documented as of this encounter Visit Diagnoses Diagnosis Drug-induced constipation Other constipation documented in this encounter Advance Directives Documents on File Type Date Recorded Patient Monogram And Letter Paster Expl [email or web address] POL 12/12/2023 signed on 12/10 [place] ORDERS FOR LIFE-SUSTAINING TREATMENT * Full Code [...] Advance Directives occurred with: Patient Care Teams Gang Rider Relationship Specialty Start Date End Date Amarilys Hamilton CRNP [address] [place] [address] PCP - General Nurse Practitioner 12/11/23 documented as of this encounter
--- NOTE | 2024-06-11 03:21 | Death Pronouncement Note ---
Date of Service June 11, 2024 Pronouncement Note Admission Date Admission Date: June 10, 2024 Contributing Factors (1) Comfort measures only status: (2) Seizure disorder: (3) Adenocarcinoma of lung, stage 4: (4) Brain metastasis: (5) Severe protein-calorie malnutrition: (6) COPD (chronic obstructive pulmonary disease): (7) JUAN J (acute kidney injury): (8) Hypomagnesemia: (9) Tachycardia: (10) Alcohol use disorder: (11) Tobacco use disorder: Summary Additional details: I was called to pronounce the of Angeles Johnston : 1960 by nursing on 06/11/2024. Upon entering the room, the patient was found to be in a terminal state. Patient was unresponsive to verbal and tactile stimuli. Patient unresponsive to pupillary reflexes. On cardiopulmonary exam, no carotid or radial pulses found and pt without spontaneous heart tones or respirations. Time of was pronounced by me on 06/11/2024 at 02:53. Attending physician was notified. Pt's VALENTÍN Park at bedside; she attempted to call pt's daughter without response but she did leave a voicemail. Vivian requested that I also try to contact the pt's daughter- I called the number given for pt's daughter in the admission note and told Yocasta that her mother had and offered condolences. All questions answered from family/friends. Additional Data Attending physician: Roland Gamboa MD Resident Activity Tracking Resident Involvement: Resident Care Provided Care Provided: Adult Hospital Medicine
--- NOTE | 2024-06-11 10:17 | Discharge Summary ---
Discharge Summary Date of Service June 11, 2024 Principal Dx & Hospital Course #1 = Principal Diagnosis (1) Comfort measures only status: Patient lives alone; found by friend with altered mental status, pallor, lethargy, and SOB on Sunday 06/10 Lung adenocarcinoma stage IV with brain mets SpO2 60% on nonrebreather (15L/min) on arrival VBG pH 7.00 on arrival Discussed with both patient and patient's friend/medical POA (Vivian) at bedside, and they both wish to transition to SELF PAY COLLECTOR at this time Palliative care consult appreciated Dilaudid LITHOGRAPHERS PRINTER pump Slow titration off of nonrebreather SELF PAY COLLECTOR status (2) Seizure disorder: Continue Keppra (3) Adenocarcinoma of lung, stage 4: (4) Brain metastasis: (5) Severe protein-calorie malnutrition: (6) COPD (chronic obstructive pulmonary disease): (7) JUAN J (acute kidney injury): (8) Hypomagnesemia: (9) Tachycardia: (10) Alcohol use disorder: (11) Tobacco use disorder: Plan Disposition: SELF PAY COLLECTOR DNR/DNI Admission HPI Per Admitting Provider Angeles is seen at the bedside with her friend and medical power of tax attorney Ksenia Cartwright present. Extensive discussion regarding goals of care. Angeles has had a challenging course of lung adenocarcinoma with left frontal lobe brain mass resected 06/2023 consistent with lung primary adenocarcinoma. Does have a history of associated seizures. Had been undergoing adjuvant therapy with Keytruda. Per Pt gradually feeling worse and more tired over the last several weeks, and called EMS with a request to transition to hospice due to progressive symptoms and worsening dyspnea. Did discuss with her medical power of tax attorney Ksenia at bedside, patient has requested to transition from her current treatments to a comfort oriented goals/hospice which she is familiar with. Ksenia reports she had family member recently passed on hospice, and Angeles's daughter Yocasta reports that her tlyhzz-gj-daa also recently passed on hospice and they are familiar with these. Angeles denies recent fever chills or sweats. denies dysuria/polyuria. Endorses generalized pain in her mid and lower back gradually worsening over the last few weeks, and some diffuse pain in her abdomen. Ksenia Cartwright is patient's medical power of tax attorney, and did confirm this with patient's daughter Yocasta Child by phone and [phone]. Angeles was able to participate in some conversation at the bedside. She is oriented to [facility], name, and is able to give some details of her progression and express her wishes. She does express that desire to move to hospice. She reports she does not want a breathing tube and understands that she may pass, and would rather focus on comfort and is ready to pass. Confirms Ksenia as her medical decision maker, does give permission for her daughter to be called at the number above. Did discuss extensively with patient's daughter Yocasta by phone at the number above. She reports that Ksenia is her mother's medical power of tax attorney, but confirms that the discussion above and transition to hospice is consistent with what she understands her mother's wishes to be and how she had been doing. Patient was admitted as SELF PAY COLLECTOR. Patient, Ksenia, Yocasta are all aware that attempted curative treatments, ICU admission, and intubation/ventilation will all be deferred consistent with comfort measure oriented care. Understand that her oxygen levels are low despite being on a nonrebreather mask, blood pressure is low, lactate/troponin/creatinine are all elevated consistent with multiorgan dysfunction and that her pH is markedly acidic at 7.0 and a bicarb of 12 consistent with severe metabolic acidosis. Expressed an understanding of this, and rather than treating these focus will be exclusively on her quality of life and comfort, and given her level of grave illness is likely that she will pass in the next few hours. Reports that she is having some discomfort in her back and abdomen for which she would like some pain medication and understands the benefit of this for quality of life, but risks to blood pressure/confusion/breathing. All parties in agreement with plan of care. Palliative care was consulted, and placing orders for transition to antidyspneic/anxiolytic agents with adjustment of oxygen when patient was ready to do so. While pending this transition patient began to have progressively worsening blood pressure. Daughter was called by phone and updated, she will try to make it to the bedside to be with her mother prior to her passing and understands she is critically ill. Did offer to Angeles to call her daughter by phone in case she were to continue to have a rapid decline to have the chance to speak with her. Patient was admitted SELF PAY COLLECTOR and subsequently passed morning of 06/11. Discharge Exam N/A Discharge Plan Discharge Items Patient Disposition: Other Date/Time: 06/11/24 02:53 Hospital Stay Data Consultations 06/10/24 12:19 ED Decision to Admit Stat 06/10/24 12:22 Consult Palliative Care Routine Total Time Total Time Spent Total Time Spent (In Minutes): 25 minutes on documentation. patient was not by provider as she was pronounced by resident team overnight Coding Level of Care Code None Diagnoses Comfort measures only status Z51.5 Seizure disorder G40.909 Adenocarcinoma of lung, stage 4 C34.90 Brain metastasis C79.31 Severe protein-calorie malnutrition E43 COPD (chronic obstructive pulmonary disease) J44.9 JUAN J (acute kidney injury) N17.9 Hypomagnesemia E83.42 Tachycardia R00.0 Alcohol use disorder F10.90 Tobacco use disorder F17.200
== END 2024-06-11 05:10 | disposition expired | DRG 951 ==
LOC: ED 08:53 → 3E 12:31 → INTOOBSV 12:31 → 3E 13:29